=== PATIENT | female | born 1985 | race Caucasian/White ===

== ENCOUNTER 2016-10-17 15:12 | Emergency (ER) | payer MEDICARE ==
[~2016-10-17] VITALS: Ht 165.1 cm; Wt 38.6 kg
[~2016-10-17 15:12] MED LIST: ADAL40PE2 SQ; DICY10CA56 PO; DIL4T PO; LORA1TAB PO; PRE10 PO; PRE20 PO; PROM25SU46 PO; TRAM50TA2 PO
[2016-10-17 15:27] VITALS: BP 115/86; PULSE 122; RESP 16; O2SAT 98
[2016-10-17 17:06] LABS: EOSINOPHILS % (AUTO) 0.1 % (0-5)
[2016-10-17 17:08] LABS: BASOPHILS % (AUTO) 0.4 % (0-3); MONOCYTES % (AUTO) 7.6 % (4-12); Mean Corpuscular Hemoglobin 24.8 pg (27.0-35.0); Platelet Count 270 bil/L (150-400)
[2016-10-17 17:25] LABS: Magnesium 1.9 mg/dL (1.6-2.6)
[2016-10-17] MEDS ORDERED: 0.9% Sodium Chloride 1,000 ML IV ONE ×2 (18:45→21:35)
[2016-10-17] MEDS ORDERED: Ondansetron 2 mg/mL 2 mL Inj IVPUSH PRN (19:00)
[2016-10-17] MEDS: HYDROmorphone 1 mg/mL Inj IVPUSH PRN ×3 (19:15→22:59)
[2016-10-17] MEDS ORDERED: MethylprednisoLONE Sodium Succinate 40 mg/mL Inj IVPUSH ONE (20:20)
[2016-10-17 21:32] VITALS: BP 106/72; PULSE 109; RESP 16; O2SAT 100
[2016-10-17 22:47] VITALS: BP 105/65; PULSE 105; RESP 16; O2SAT 99
--- NOTE | 2016-10-18 00:01 | ED.REPORT ---
HPI-Abd Pain F Under 40 Date of Service Oct 17, 2016 ED Provider: Kirby Acosta MD History of Present Illness: The patient is a 31 year old female with history of Crohn's disease s/p permanent ileostomy, who presents to the emergency department after a recent stay at this hospital, for nearly the same symptoms of nausea, vomiting, lightheadedness, racing heart, abdominal pain. Her stool color and consistancy has not changed. At most she has weighed 130 lbs, and she is currently at around 80 lbs. She denies hematemesis, bloody stools, fever, chills, syncope, dysuria or cough. She was on Remicade for 6 months a few years ago but stopped due to an intestinal infection. 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 She is visiting her mother in [place] has established care with Dr. Valdez. She has been on steroids intermittently over the last year. She takes Tramadol and dilaudid PO for some pain relief. She does not smoke tobacco, drink alcohol, or use any illicit drugs. Nursing Notes Stated Complaint: DEHYDRATION/CROHNS Chief Complaint: Female Abdominal Pain Nursing Notes Reviewed: Yes Allergies: Coded Allergies: No Known Allergies (Unverified , 09/24/16) Scheduled Adalimumab (Humira Crohn's) 40 Mg/0.8 Ml Pen.ij.kit 40 MG SQ ONCE Dicyclomine (Bentyl) 10 Mg Capsule 10 MG PO QID Prednisone (PredniSONE) 20 Mg Tablet 20 MG PO DAILY Prednisone (PredniSONE) 10 Mg Tablet 40 MG PO DAILY Prednisone (PredniSONE Concentrate) 5 Mg/1 Ml Oral.conc 8 ML PO DAILY Scheduled PRN Hydromorphone (Dilaudid) 4 Mg Tablet 4 MG PO Q4H PRN PRN Pain Lorazepam (Lorazepam) 1 Mg Tablet 1 MG PO DAILY PRN PRN For Anxiety Lorazepam (Lorazepam) 1 Mg Tablet 1 MG PO HS PRN PRN For Insomnia Promethazine HCl (Phenergan) 25 Mg Supp.rect 12.5 MG PO QID PRN PRN For Nausea Tramadol (Tramadol) 50 Mg Tablet 50 MG PO DAILY PRN PRN For Pain General Time Seen by MD: 19:00 Chief Complaint Abdominal pain, Nausea, Vomiting mild Past Medical History Past Medical History Crohn's Disease Past Surgical History Ileostomy Family History Noncontributory Smoking History Never Smoker Social History Lives in [place], she is here visiting her mother Alcohol Use: Denies alcohol use Drug Use: Denies drug use Other Social History: Good social support, , Lives with children, Visiting locally Ambulatory Status Independent Review of Systems Review of Systems Note: A comprehensive review of systems was conducted with the patient and found to be negative except as above in the History of Present Illness. Complete sys rev & neg: except as marked. Physical Exam Physical Exam Notes: General: Young cachectic lady lying in bed in no acute distress, very thin and protein malnourished, appropriately interactive and very pleasant. HEENT: Normocephalic, atraumatic. External ears without defect. Pupils equal, round, and reactive to light and accommodation. Anicteric sclerae, moist conjunctivae, and no lid lag. Oropharynx free of erythema and cobble stoning with moist mucosa. Neck: Supple with full range of motion. No jugular venous distension. No bruits. No lymphadenopathy or thyromegaly. Cardiovascular: Tachycardic rate with regular rhythm with no murmurs, rubs, or gallops appreciated Pulmonary: Clear to auscultation bilaterally with no crackles, wheezes, or rhonchi. Normal respiratory effort with no use of accessory muscles. Abdomen: Bowel tones present. Soft, nontender, nondistended. No hepatosplenomegaly or masses appreciated. Extremities: No clubbing, cyanosis, edema, or lymphadenopathy appreciated. Skin: Normal temperature, turgor, and texture; no rash, ulcers, or subcutaneous nodules appreciated. Neurological: Cranial nerves grossly intact. Normal muscle strength, tone, and bulk. Reflexes, coordination, and sensory function within normal limits. No known gait impairment. Psychiatric: Normal mood and affect. Alert and oriented to person, place, and time. Initial Vital Signs Vital Signs (First) Date Time Temp Pulse Resp B/P Pulse Ox O2 Delivery O2 Flow Rate FiO2 10/17/16 15:27 36.5 122 16 115/86 98 Room Air Interpretation & Diagnostics Lab Results Interpretation Result Diagram: 10/17/16 1652 10/17/160 Test 10/17/16 16:52 10/17/16 21:20 10/17/16 21:42 White Blood Count 9.6th/mm3 (3.8-10.1) Red Blood Count 4.71mil/mm3 (3.90-5.20) Hemoglobin 11.7g/dL (12.0-15.6) Hematocrit 37.2% (35.0-46.0) Mean Corpuscular Volume 79.0fL (81-100) Mean Corpuscular Hemoglobin 24.8pg (27.0-35.0) Mean Corpuscular Hemoglobin Concent 31.5% (32.0-37.0) Red Cell Distribution Width 20.0% (12.3-15.4) Platelet Count 270bil/L (150-400) Neutrophils (%) (Auto) 76.0% (40-74) Lymphocytes (%) (Auto) 15.2% (14-46) Monocytes (%) (Auto) 7.6% (4-12) Eosinophils (%) (Auto) 0.1% (0-5) Basophils (%) (Auto) 0.4% (0-3) Hematology Comments Wbc Magnesium Level 1.9mg/dL (1.6-2.6) Total Bilirubin 0.3mg/dL (0.0-1.2) Aspartate Amino Transf (AST/SGOT) 13U/L (0-50) Alanine Aminotransferase (ALT/SGPT) 12U/L (0-32) Alkaline Phosphatase 108U/L (25-150) Total Protein 4.7g/dL (6.4-8.4) Albumin 2.0g/dL (3.4-5.0) Lipase 5U/L (13-60) Hold Chavis Top Tube Received (Received) Sodium Level 129mEq/L (134-144) Potassium Level 4.2mEq/L (3.5-5.2) Chloride Level 95mEq/L (97-108) Carbon Dioxide Level 22mmol/L (18-29) Blood Urea Nitrogen 18mg/dL (6-20) Creatinine 0.60mg/dL (0.57-1.00) Estimat Glomerular Filtration Rate 167mL/min (>59) Glucose Level 61mg/dL (60-99) Calcium Level 6.7mg/dL (8.5-10.1) Hold Urine Received (Received) Re-Eval/Medical Decision Med Decision/Clinical Course Med Decision/Clinical Course: Patient has a complicated history involving Crohns disease, nausea and vomiting, and severe diarrhea. Her current episode of vomiting, hyponatremia and dehydration seems to be typical for her. We administered 2 L NS with improvment of tachycardia and sodium level. She is no longer nauseous and her abdominal pain is well controlled. She remains stable safe for home with plan for close follow up by her primary care physician. Discharge & Departure Shift Change Sign-Out Discussed Complaint(s): Yes Laboratory Evaluation: Lab evaluation discussed Primary Impression: Crohns disease Gastrointestinal tract location: large intestine Digestive disease complication type: without complications Qualified Code: K50.10 - Crohn's disease of large intestine without complications Additional Impressions: Hyponatremia Tachycardia Dehydration Nausea & vomiting Vomiting Intractability: non-intractable Disposition: Home Discharge Condition All VS Reviewed: Yes Condition: Stable Additional Instructions: During you visit to [facility] we obtained blood work for infectious markers, hemoglobin levels, and electrolytes. All your lab values aside from your sodium, before discharge were within normal limits. Your sodium levels are near normal at 129 before the second liter of NS. I recommend drinking more fluids that contain electrolytes like Pedialyte or Gatorade. Your vital signs were stable and safe for discharge home. We will send you home with - Liquid prednisone 40mg- Do not hesitate to call emergency services or your primary care physician if you experience any of the following. - High unrelenting fevers. - Uncontrolled vomiting. - Severe hypertension or hypotension. - Syncope or loss of consciousness. - Chest pain or severe shortness of breath. Follow up closely with your primary care physician in 1-2 weeks time following your emergency department visit for medication checks and general well-being. Referrals: LASHA PRATHER DO (PCP) Attending Statment Seen and examined with Dr Tobin on 09/17. agree with above BENSON TOBIN DO Oct 17, 2016 19:56 Kirby Acosta MD Oct 18, 2016 02:17
[2016-10-18] MEDS ORDERED: PRED5ORA PO (00:06)
[2016-10-18 00:30] VITALS: BP 108/68; PULSE 88; RESP 16; O2SAT 99
== END 2016-10-18 00:30 | disposition home or self-care (01) ==
LOC: SED 15:12
DX: K50.10 Crohn's disease of large intestine without complications (principal); E87.1 Hypo-osmolality and hyponatremia; E86.0 Dehydration; R00.0 Tachycardia, unspecified; Z93.2 Ileostomy status
CPT/HCPCS: 36415; 80048; 80053; 81025; 83690; 83735; 85025; 96361; 96374; 96375; 96376; 99285; J1170; J2405; J2920; J7030

== ENCOUNTER 2016-10-21 14:46 | Inpatient (IN) | payer MEDICARE ==
[~2016-10-21] VITALS: Ht 165.1 cm; Wt 45.5 kg
[~2016-10-21 14:46] MED LIST changes: +PRED5ORA PO
[2016-10-21 14:55] VITALS: BP 107/81; PULSE 135; RESP 20; O2SAT 99
[2016-10-21 15:30] LABS: BASOPHILS % (AUTO) 0.3 % (0-3); EOSINOPHILS % (AUTO) 0 % (0-5); MONOCYTES % (AUTO) 7.7 % (4-12); Mean Corpuscular Hemoglobin 25.3 pg (27.0-35.0); Mean Corpuscular Volume 79.2 fL (81-100); NEUTROPHILS % (AUTO) 76.6 % (40-74); Platelet Count 174 bil/L (150-400)
[2016-10-21 16:05] LABS: Magnesium 1.9 mg/dL (1.6-2.6)
[2016-10-21] MEDS ORDERED: 0.9% Sodium Chloride 1,000 ML IV ONE (17:27)
[2016-10-21] MEDS ORDERED: Ondansetron 2 mg/mL 2 mL Inj IVPUSH PRN ×2 (17:30→18:25)
[2016-10-21] MEDS ORDERED: Pantoprazole 4 mg/mL 10 mL Inj IVPUSH ONE ×2 (17:30→20:30)
--- NOTE | 2016-10-21 18:23 | ED.REPORT ---
HPI-Abd Pain F Under 40 Date of Service Oct 21, 2016 ED Provider: Vlad Bauman DO A 31 year old female with a history of anxiety and Crohn's disease s/p total proctocolectomy with end ileostomy presents to the ED with a Crohn's flare up onset one week ago. Her symptoms today include watery diarrhea in her ileostomy bag, mild hematochezia, and abdominal pain. She denies fever. The patient was hospitalized for 10 days on 09/24/16 with a similar flare-up and was seen in the ED on 10/17/16 for dehydration. Nursing Notes Stated Complaint: POSSIBLY DEHYDRATED/CROHNS FLARE Chief Complaint: Female Abdominal Pain Nursing Notes Reviewed: Yes Allergies: Coded Allergies: No Known Allergies (Unverified , 09/24/16) Scheduled Adalimumab (Humira Crohn's) 40 Mg/0.8 Ml Pen.ij.kit 40 MG SQ ONCE Dicyclomine (Bentyl) 10 Mg Capsule 10 MG PO QID Prednisone (PredniSONE) 20 Mg Tablet 20 MG PO DAILY Prednisone (PredniSONE) 10 Mg Tablet 40 MG PO DAILY Prednisone (PredniSONE Concentrate) 5 Mg/1 Ml Oral.conc 8 ML PO DAILY Scheduled PRN Hydromorphone (Dilaudid) 4 Mg Tablet 4 MG PO Q4H PRN PRN Pain Lorazepam (Lorazepam) 1 Mg Tablet 1 MG PO DAILY PRN PRN For Anxiety Lorazepam (Lorazepam) 1 Mg Tablet 1 MG PO HS PRN PRN For Insomnia Promethazine HCl (Phenergan) 25 Mg Supp.rect 12.5 MG PO QID PRN PRN For Nausea Tramadol (Tramadol) 50 Mg Tablet 50 MG PO DAILY PRN PRN For Pain General Time Seen by MD: 18:06 Chief Complaint Other (Crohn's flare up) Hx Obtained From: Patient Arrived By: Walk-in Sudden in Onset?: No Onset Occurred: 1 week ago Symptom Duration: Since onset Location: : Diffuse Quality: Painful Severity: Current: Moderate Severity: Maximum: Moderate Associated with: Reports: Diarrhea, Hematochezia, Denies: Fever Sexual History / Control: Denies Pt is sexually active Pertinent Negative: Relieved by nothing Context Related History: Reports: Abdominal surgery Recent Healthcare: Recent doctor visit, Recent hospitalization Similar Sx Previous: Yes Past Medical History Past Medical History Crohn's Disease Anxiety Heart murmur Past Surgical History Total proctocolectomy with end ileostomy Family History Noncontributory Smoking History Never Smoker Social History Lives in [place], she is here visiting her mother Alcohol Use: Denies alcohol use Drug Use: Denies drug use Other Social History: Good social support, , Lives with children, Visiting locally Ambulatory Status Independent Review of Systems Constitutional: Denies: Fever Respiratory: Denies: Non-productive cough, Shortness of breath GI: Reports: Abdominal pain, Diarrhea (Watery), Hematochezia (Mild), Denies: Vomiting Complete sys rev & neg: except as marked. Physical Exam Physical Exam Notes: Initial Vital Signs Vital Signs (First) Date Time Temp Pulse Resp B/P Pulse Ox O2 Delivery O2 Flow Rate FiO2 10/21/16 14:55 36.2 135 20 107/81 99 Room Air Initial VS: Reviewed Neck: Supple, Full range of motion Skin: Warm, Dry, No cyanosis Neurologic: Alert, Oriented, Nonfocal Psychiatric: Mood/affect normal, Behavior normal, Normal thought content General/Constitutional: Awake, Alert Appearance / Presentation: Positive: Cachectic Respiratory / Chest: Breath sounds NL, Breath sounds = bilat, No respiratory distress Cardiovascular: Regular rhythm, Heart sounds NL Heart Rate / Rhythm: Positive: Tachycardia Lower Ext Edema: Positive: Pitting (Trace, bilaterally) Abdomen: Soft, Non-tender Head / Eyes: Atraumatic, Normocephalic Face puffy secondary to chronic steroids Interpretation & Diagnostics Lab Results Interpretation Result Diagram: 10/21/16 1520 10/21/16 1520 Test 10/21/16 15:20 10/21/16 17:22 10/21/16 18:51 10/21/16 19:22 White Blood Count 20.9th/mm3 (3.8-10.1) Red Blood Count 4.67mil/mm3 (3.90-5.20) Hemoglobin 11.8g/dL (12.0-15.6) Hematocrit 37.0% (35.0-46.0) Mean Corpuscular Volume 79.2fL (81-100) Mean Corpuscular Hemoglobin 25.3pg (27.0-35.0) Mean Corpuscular Hemoglobin Concent 31.9% (32.0-37.0) Red Cell Distribution Width 20.9% (12.3-15.4) Platelet Count 174bil/L (150-400) Neutrophils (%) (Auto) 76.6% (40-74) Lymphocytes (%) (Auto) 15.0% (14-46) Monocytes (%) (Auto) 7.7% (4-12) Eosinophils (%) (Auto) 0% (0-5) Basophils (%) (Auto) 0.3% (0-3) Sodium Level 128mEq/L (134-144) Potassium Level 4.8mEq/L (3.5-5.2) Chloride Level 92mEq/L (97-108) Carbon Dioxide Level 22mmol/L (18-29) Blood Urea Nitrogen 22mg/dL (6-20) Creatinine 0.70mg/dL (0.57-1.00) Estimat Glomerular Filtration Rate 140mL/min (>59) Glucose Level 87mg/dL (60-99) Calcium Level 7.4mg/dL (8.5-10.1) Magnesium Level 1.9mg/dL (1.6-2.6) Total Bilirubin 0.2mg/dL (0.0-1.2) Aspartate Amino Transf (AST/SGOT) 24U/L (0-50) Alanine Aminotransferase (ALT/SGPT) 18U/L (0-32) Alkaline Phosphatase 117U/L (25-150) Total Protein 5.0g/dL (6.4-8.4) Albumin 2.1g/dL (3.4-5.0) Lipase 10U/L (13-60) Hold Urine Received (Received) Urine Color Yellow (YELLOW) Urine Appearance Clear (CLEAR,HAZY) Urine pH 6.5 (5.0-8.0) Urine Specific [place] 1.010 (1.003-1.035) Urine Protein Negativemg/dL (NEG,TRACE) Urine Glucose (UA) Negativemg/dL (NEGATIVE) Urine Ketones Negativemg/dL (NEGATIVE) Urine Occult Blood Negative (NEGATIVE) Urine Nitrite Negative (NEGATIVE) Urine Bilirubin Negative (NEGATIVE) Urine Urobilinogen Normalmg/dL (NORMAL) Urine Leukocyte Esterase Small (NEGATIVE) Urine RBC 0-2/hpf (0-2) Urine WBC 0-5/hpf (0-5) Urine Epithelial Cells None/hpf (NONE-MOD) Urine Crystals None seen (NONE SEEN) Urine Bacteria None/hpf (NONE-FEW) Urine Hyaline Casts None/lpf (NONE) Urine Granular Casts None seen (NONE SEEN) Urine Waxy Casts None seen (NONE SEEN) Urine Red Blood Cell Casts None seen (NONE SEEN) Urine White Blood Cell Casts None seen (NONE SEEN) Urine Mucus None seen (None Seen) Urine Trichomonas None seen (NONE SEEN) Urine Yeast None (NONE SEEN) Urinalysis Comment Reggie carbonate lisa Urine Culture Reflexed Indicated Lactic Acid Level 2.6mmol/L (0.4-2.0) X-Ray Chest Interpretation Chest Xray Interpretation: IMPRESSION: No acute process. Dictated by: Calvin Bonds M.D. on 10/21/2016 at 19:32 View: Portable, 1 view Interpretation / Wet Read by: Interpret - Radiologist X-Ray Abdominal Interpretation ONE VIEW IMPRESSION: No acute process. Dictated by: Calvin Bonds M.D. on 10/21/2016 at 20:17 Interpretation / Wet Read by: Interpret - Radiologist Re-Eval/Medical Decision Med Decision/Clinical Course 31-year-old female with severe Crohn's. She presents with increasing watery stools and abdominal pain. She is found to be in moderate distress. She did not have clinical peritonitis but showed pretty significant tenderness. No focal signs of obstruction. White blood cell count was 20,000 which is a jump from her last visit about a week ago. Consulted with gastroenterology. Plan will admit her to the hospital. Evaluate for signs and symptoms of sepsis. Chest x-ray is normal. UA was negative. No signs of skin infection. Stool will be sent down. If stool studies are negative begin hydrocortisone therapy. Otherwise full resuscitation and pain control. Source of Hx: Old records Re-Evaluation/Progress : Time of Eval: 18:35 Patient Status: Condition improved Re-Evaluation/Progress Note: Discussed with patient diagnosis and plan for admit. Patient agrees with plan for care and all questions were addressed. Consultation #1: Referral / Consult Name: Kirby Valdez MD Call Returned at: 19:07 Screedman/Laborer: Agrees with eval, Agrees with plan Note: GI: If there is no septic source and stool sample is negative, start patient on hydrocortisone and Dr. Valdez will see patient tomorrow. Consultation #2: Referral / Consult Name: Malachi Wells MD Consulted With: Hospitalist Call Returned at: 19:12 Screedman/Laborer: Agrees with eval, Agrees with plan Counseled Regarding: Diagnosis, Need for follow-up, When/why to return to ED Discharge & Departure Primary Impression: Crohns disease Gastrointestinal tract location: small intestine Digestive disease complication type: unspecified complication Qualified Code: K50.019 - Crohn' s disease of small intestine with unspecified complications Disposition: ADMITTED TO HOSPITAL Discharge Condition All VS Reviewed: Yes Condition: Stable Referrals: LASHA PRATHER DO (PCP) Taiwo Attestation Portions of this note were transcribed by Laura Hills. I, Dr. Bauman, personally performed the history, physical exam, and medical decision-making; I reviewed and confirmed the accuracy of the information in the transcribed note. Signed by: Taiwo Tesfaye, 10/21/2016, 20:52 copies to: LASHA PRATHER Todd P DO Oct 21, 2016 18:23 LAURA HILLS Oct 21, 2016 18:35
[2016-10-21] MEDS: HYDROmorphone 0.5 mg/0.5 mL iSecure Syringe IVPUSH PRN ×3 (19:13→21:01)
[2016-10-21 19:33] VITALS: BP 103/71; PULSE 112; RESP 16; O2SAT 97
--- NOTE | 2016-10-21 19:33 | DRSVH ---
PROCEDURE: X-RAY CHEST ONE VIEW, PORTABLE ([id number]) INDICATIONS: sepsis TECHNIQUE: One view of the chest was acquired. COMPARISON: [facility], CR, XR CHEST 2VW, 09/25/2016, 9:09. FINDINGS: Surgical changes and devices: None. Lungs and pleura: No pleural effusions or pneumothorax. Lungs are clear. Mediastinum: Mediastinal contours appear normal. Heart size is normal. Bones and chest wall: No suspicious bony lesions. Overlying soft tissues appear unremarkable. IMPRESSION: No acute process. Dictated by: Calvin Bonds M.D. on 10/21/2016 at 19:32 Approved by: Calvin Bonds M.D. on 10/21/2016 at 19:32
--- NOTE | 2016-10-21 19:43 | PCM.HPMED ---
Subjective Date of Service Oct 21, 2016 Primary Provider: Admitting Physician: Primary Care Physician: Karissa Vicente DO Attending Physician: Chief Complaint: new leukocytosis ongoing dehydration from diarrhea HISTORY was OBTAINED FROM PATIENT / Golden Reviews NOTES History of present illness 31-year-old female, with ileostomy due to Crohn's disease, admitted in 09/2016 when [place] be treated for flare of Crohn's disease (with TPN/Humira/sodium and potassium repletion/ prednisone continued, . no recurrent Sharon-ostomy Fistula, associated Acute blood loss/iron deficiency anemia, ileostomy stricture dilated) presented last week in the ER, treated with IV fluids/discharged, returns today for ongoing dehydration and new leukocytosis with persistent ileostomy high output, abdominal pain. Ongoing acid reflux with prednisone 40. Humira every 15 days. 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 section Low grade TETO status post colposcopy Allergies Coded Allergies: No Known Allergies (Unverified , 09/24/16) PMH Social History Hx Alcohol Use: No Hx Substance Use: No Smoking Status: Never Smoker Exam Vital Signs Vital Sign - Last Date Time Temp Pulse Resp B/P Pulse Ox O2 Delivery O2 Flow Rate FiO2 10/21/16 14:55 36.2 135 20 107/81 99 Room Air Lab and Diagnostics Labs Exam on admission on room air cheeks are montano than 09/2016 NAD A and O x 3 mood affect WNL NC/AT no icterus no injected eyes EOMI PERRL /no pharyngeal lesions/ no oral lesions / hearing intact Supple neck CTAB equal chest rise / no accessory muscle use / speaks in full sentences / no rrw RRR S1 S2 / no mrg / 2+ radial pulses Soft nt nd + BS no hepatosplenomegaly trace edema no cyanosis no ecchymosis of lower extremities No rash / no jaundice PERALTA RLQ ileostomy bag in place, full of fluid Stool cultures/PCR pending Chest x-ray negative KUB no bowel loops dilated Result Diagram: 10/21/16 1520 10/21/16 1520 Assessment & Plan Active issues and reason for admission 31-year-old female with Crohn's disease and history of ileitis, admitted for dehydration due to high ileostomy output and new leukocytosis. -- Cipro Flagyl pending stool cultures/PCR -- NS 125 per hour, regular diet nothing by mouth at midnight -- Dr. Jon plans EGD and ileoscopy if cultures are negative -- Continue prednisone 40 -- Dilaudid 1-3 when necessary abdominal pain Chronic issues known prior to admission, present on admission Anxiety, monitor GERD due to prednisone Anemia, blood loss/iron deficiency -- PPI, monitor hemoglobin DVT prophylaxis ambulate Code full Assessment and plan were discussed with patient . Malachi Wells MD Oct 21, 2016 19:43 10/21/16 1520 Malachi Wells MD Oct 21, 2016 19:43
[2016-10-21 19:44] LABS: APPEARANCE,URINE CLEAR (CLEAR,HAZY); COLOR,URINE YELLOW (YELLOW); OCCULT BLOOD,URINE NEGATIVE (NEGATIVE); PH,URINE 6.5 (5.0-8.0); UROBILINOGEN,URINE NORMAL (NORMAL)
--- NOTE | 2016-10-21 20:19 | DRSVH ---
PROCEDURE: X-RAY ABDOMEN, ONE VIEW ([id number]) INDICATIONS: prior small bowel strictures/crohns TECHNIQUE: One view of the abdomen acquired. COMPARISON: [facility], CR, XR SMALL BOWEL BARIUM, 10/01/2016, 8:38. FINDINGS: Surgical changes and devices: Right lower quadrant ostomy is present. Bowel: Bowel gas pattern is normal. Soft tissues: No suspicious abdominal calcifications. Visualized solid organ contours appear normal in size. Bones: No suspicious bony lesions. IMPRESSION: No acute process. Dictated by: Calvin Bonds M.D. on 10/21/2016 at 20:17 Approved by: Calvin Bonds M.D. on 10/21/2016 at 20:17
[2016-10-21] MEDS ORDERED: metroNIDAZOLE 250 mg Tablet PO SCH (20:30)
[2016-10-21] MEDS ORDERED: Alum-Mag Hydrox-Simeth 30 mL Suspension PO PRN (20:50)
[2016-10-21] MEDS: 0.9% Sodium Chloride 1,000 ML IV SCH (21:01)
[2016-10-21 22:15] VITALS: BP 98/65; PULSE 110; RESP 16; O2SAT 99
[2016-10-21] MEDS: HYDROmorphone 1 mg/mL Inj IVPUSH PRN (23:11)
[2016-10-21] MEDS ORDERED: OXYC15TA45 PO (23:31)
[2016-10-21] MEDS ORDERED: PROM12.510 PO (23:31)
[2016-10-22] MEDS ORDERED: 0.9% Sodium Chloride 500 ML IV ONE (00:10)
[2016-10-22 00:33] VITALS: BP 102/67; PULSE 110; RESP 16; O2SAT 99
[2016-10-22] MEDS: HYDROmorphone 1 mg/mL Inj IVPUSH PRN ×5 (02:06→15:07)
[2016-10-22] MEDS: 0.9% Sodium Chloride 1,000 ML IV SCH ×3 (03:14→18:38)
[2016-10-22] MEDS: Ketorolac 15 mg/mL Inj IVPUSH PRN ×2 (03:38→11:10)
[2016-10-22 04:33] VITALS: BP 109/66; PULSE 93; RESP 16; O2SAT 100
--- NOTE | 2016-10-22 06:28 | NUR ---
Admit Pt arrived at 1999 via stretcher. Pt easily able to ambulate to bed w/o any assistance. Pt is otherwise normal healthy fully functioning friendly young woman. Pt able to care for self independently w/o any difficulty whatsoever.
[2016-10-22] MEDS ORDERED: predniSONE 20 mg Tablet PO SCH (08:30)
--- NOTE | 2016-10-22 08:54 | NUR ---
EGD Endo called at 0740. To discuss plan for EGD with Dr. Jon and notify RN. Per conrad, pt can have clears until 10am.
--- NOTE | 2016-10-22 09:14 | NUR ---
Case Management: IMM given and explained to pt at bedside at 9:55 am. No questions. FABRICE Stafford RN
[2016-10-22 09:43] LABS: Mean Corpuscular Volume 79.2 fL (81-100)
[2016-10-22 10:05] VITALS: BP 103/60; PULSE 89; RESP 12; O2SAT 100
--- NOTE | 2016-10-22 10:15 | NUR ---
Lab/eusebia DANG notified at 1015 that pt's Ca is 6.4, Albumin 1.1 and pt's stool is positive for norovirus. To be placed in enteric/contact precautions.
--- NOTE | 2016-10-22 10:30 | NUR ---
Rounds 1040 Hospitalist aware of Ca 6.4. No new orders. Aware of facial, left arm and lower extremity swelling. No new orders. Pt stable.
--- NOTE | 2016-10-22 12:19 | NUR ---
Social Work: Initial Assessment Data: Pt is a 31 y/o female admitted for crohns. Pt's PCP is Dr Vicente, pt's insurance is Medicare. Pt readmit score is 2. EMR reviewed, EAR SPECIALIST met with pt at bedside, role explained. Pt states that she lives with her mother on [address] where there are a few steps to enter. Pt uses no DME and estrada no SNF history. Pt has history with HH but is unsure of the company. Pt states that she does not have a DPOA and declined information. Pt reports not LTC or VA benefits and is not a caregiver for another. Pt states her mom can give her a ride home at d/c. EAR SPECIALIST will continue to follow for possible needs at d/c. Assessment: Pt who is independent at baseline. Plan: Pt will d/c home via POV when medically stable. EAR SPECIALIST will continue to follow for possible d/c needs. ASHLYN Sánchez Addendum: 10/22/16 at 1224 by STEVE CALDERON SS Amended: Links added.
--- NOTE | 2016-10-22 12:23 | NUR ---
GI Per Dr. Jon at 1210, pt may start a soft diet as ileostomy dilation will not happen today. aware of positive GI norovirus. Notified MD that pt reports watery ileostomy output, is having moderate 6-7/10 abdominal pain but no N/V. Afebrile. VSS. Dr. Jon to see pt this afternoon. Addendum: 10/22/16 at 1534 by EMORY DENISE RN Continuing to encourage po intake of food/fluids. aware that pt has been seen by nutrition.
[2016-10-22 12:47] VITALS: BP 121/85; PULSE 98; RESP 16; O2SAT 98
--- NOTE | 2016-10-22 13:45 | PCM.CHPMED ---
Subjective Date of Service: Oct 22, 2016 Provider requesting consult: Malachi Wells MD Primary Physician: Admitting Physician: Malachi Wells MD Primary Care Physician: Karissa Vicente DO Attending Physician: Malachi Wells MD Chief Complaint: Chief Complaint: Diarrhea, abdominal pain History of Present Illness: Patient is a 31 year old female with a history of anxiety and Crohn's disease s/ p total proctocolectomy with end ileostomy who presents to the ED with a one week of watery diarrhea in her ileostomy bag, mild hematochezia, and abdominal pain. She reports she had nausea and vomiting about a week ago but this has resolved since then. She denies fevers, chills, dizziness, chest pain, or shortness of breath. She has no other complaints. The patient was hospitalized for 10 days on 09/24/16 with a similar flare-up and was seen in the ED on for dehydration. She states this is similar to her similar Crohn's flares. She reports her nephew and niece had vomiting and diarrhea a little over a week ago. She denies NSAID or Tylenol use. She has no family history of Crohn's or UC, but her mother has celiac disease and her grandfather was diagnosed with colon cancer at age 62. She had an EGD with biopsy and ileoscopy with biopsy and balloon dilatation in Sep 2016, which showed minimal gastropathy, mild reactive esophagitis, terminal ileitis, and severe inflammatory stomal stricturing. On admission, WBC was 20.9, now down to 9.6. Hb was 11.8, decreased to 8.6 today , platelets 174, down to 87. LFTs and bilirubin were normal, lipase normal. UA was negative. Stool PCR positive for norovirus. Review of Systems: Comprehensive review of systems conducted and was negative except for the pertinent positives listed above. 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 section Low grade TETO status post colposcopy Allergies: Coded Allergies: No Known Allergies (Unverified , 10/21/16) Family History Family History She has no family history of Crohn's or UC Mother has celiac disease Grandfather was diagnosed with colon cancer at age 62 Social History Hx Alcohol Use: NoHx Substance Use: No Smoking Status: Never Smoker Exam Vital Signs Vital Sign - Last Date Time Temp Pulse Resp B/P Pulse Ox O2 Delivery O2 Flow Rate FiO2 10/22/16 10:05 36.9 89 12 103/60 100 Room Air Intake and Output 10/21/16 10/21/16 10/22/16 Cumulative From/Thru 15:00 23:00 07:00 10/21/16 14:55 - 10/22/16 06:25 Intake Total 1000 ml 1993 ml 2993 ml Balance 1000 ml 1993 ml 2993 ml Intake Oral 600 ml 600 ml IV Total 1000 ml 1393 ml 2393 ml # Voids 1 1 # Bowel Movements 1 1 Additional Information: General: Alert, Oriented X3, Cooperative, No Acute Distress Head: Normocephalic, atraumatic. External ears normal. Cheeks swollen bilaterally, R>L. Eyes: PERRLA, EOMI. Anicteric sclerae. Mouth: Mouth Normal, Mucous Membranes Moist/[place] Neck: Neck supple with full range of motion. Chest & Lungs: Clear to auscultation bilaterally with no crackles, wheezes, or rhonchi. Cardiovascular: Regular Rate/Rhythm, Normal S1, Normal S2, No Murmurs/Rubs/ Gallops Abdomen: Mild diffuse tenderness, Ileostomy bag in place, Non-distended, No masses, Normoactive bowel tones, Soft Musculoskeletal: Normal Range of Motion Extremities: Mild bilateral lower extremity edema Neurological: Grossly Neurologically Intact, Normal Speech, Strength Normal 4/ 4 ext, Normal Gait Lab and Diagnostics Result Diagram: 10/22/1691510/22/1616 Assessment & Plan Assessment Patient is a 31 year old female with a history of anxiety and Crohn's disease s/ p total proctocolectomy with end ileostomy who presents to the ED with a one week of watery diarrhea in her ileostomy bag, mild hematochezia, and abdominal pain. Tested positive for norovirus. Acute norovirus gastroenteritis - Pt reports 1 week of nausea/vomiting/diarrhea, and abdominal pain after contact with 2 children with similar symptoms. Stool PCR was positive for norovirus. Will likely need supportive treatment. - Supportive treatment - IV fluids, antiemetics, pain control Microcytic anemia, acute. - Pt presented with Hb 11.8, which dropped to 8.6 overnight. This likely represents dilution, as she did receive fluids and was significantly dehydrated on admit. Furthermore, she appears to be chronically anemic with her baseline around 9. MCV was 79.2, likely iron deficiency anemia secondary to GI blood loss. - Trend H&H regularly - Transfuse if necessary. - Consider iron supplements - Continue to monitor for signs of overt bleeding Possible acute GI bleed - Pt reports hematochezia over the past week. No edy red blood or dark stools in ostomy. - Continue to monitor for signs of overt bleeding History of Crohn's Disease - Currently on Humira and Prednisone. She is s/p total proctocolectomy with end ileostomy and has a history of stomal strictures - Continue Humira and Prednisone. Problems: Attending Statement Patient was seen and examined. I agree with the assessment and plan as described by Dr Machado. Primary reason for acute admission appears to be the norovirus infection. There is no suggestion of obstruction at this point. Will hold off on reevaluation of stoma at this time to allow continued supportive care. I suspect significant hemoconcentration at presentation judging by the fall in WBC and Hb since admission. I recommend oral nutrition. Continued IV hydration and electrolyte repletion. Reduce prednisone to 30mg daily. Stop antibiotics. Convert from IV to as needed oral pain medication. Will continue to follow. Not due for next Humira until the . Shmuel Machado Oct 22, 2016 11:22 Kirby Valdez MD Oct 23, 2016 06:40
[2016-10-22 15:55] VITALS: BP 106/68; PULSE 99; RESP 16; O2SAT 99
--- NOTE | 2016-10-22 16:04 | NUR ---
NUTRITION CONSULT Assess: 31 yo F w/ Crohn's admitted for dehydration d/t persistently high output from ileostomy and new leukocytosis. Pt w/ recent admission during which she required TPN 09/2016. Pt states that since her previous admission she has not been able to put on any wt and food seems to go right through her. She has been drinking extra fluids to try to stay hydrated. Pt is living with her mother who has been recently making smoothies for pt and states that she tolerates them well. Pt tells me that her wt has been 85 lbs for awhile and she has not been able to gain wt. Over the course of 1 yrs pt went from 120 lbs to 85 lbs. PMHx: SBO, Malnutrition, Crohns, Ileostomy, Perirectal fistula, Iron deficiency, Coagulation disorder, Ileal pancolitis, Abdominal protocolectomy, Tympanostomy, Low grade TETO. LABS: Na 130, Cr 0.53, LA 2.6, Ca 6.4, Albumin 1.1, Lipase 10 MEDICATIONS: Prednisone, Zofran DIET: Soft, No PO recoreded DIET Hx/INTAKE PATIENT SERVICES MANAGER: NUTRITION FOCUSED PHYSICAL ASSESSMENT: GI symptoms/stool: BM x1 10/21Braden: 20 Skin integrity: No issues noted Overall Appearance: Thin woman lying in bed - thinning noted in triceps, biceps, and forearms. ANTHROPOMETRICS: Current Wt: 38.6 kg BMI: 14.2 kg/w9Atfrw Wt: 38.6 kg IBW: 56.8 kgRecent wt changes: Wt loss (35 lbs x1 yrs = 29%, significant) ESTIMATED NEEDS: Malnutrition Calories: 7319-6741 kcal/d (35-40 kcal/kg/d) Protein: 45-70 g/d (1.2-1.8 g/kg/d) Fluids: 7892-5367 ml/d (1 ml/kcal/d) NUTRITION DIAGNOSIS: 1) Severe malnutrition related to GI abnormalities as evidenced by BMI of 14.2 kg/m2, loss of LBM, and 29% wt loss x1 yr. INTERVENTION: 1) Recommend consideration of TPN d/t poor nutritional status 2) Will send Ensure TID 3) High calorie/protein recipe book provided MONITOR/EVALUATE: PO intake, Nutrition support, GI, Wt, Nutrition status, POC. Will follow per high nutrition risk guidelines. Addendum: 10/23/16 at [address] Spoke to pt regarding supplement tolerance. Pt would like to try Ensure Clear TID instead of Ensure. Will continue to monitor. Addendum: 10/23/16 at [address] R[address] RD Auxiliary student documentation reviewed. I agree with above documentation. Georgette Rodríguez, RAFAEL, CD
--- NOTE | 2016-10-22 18:17 | NUR ---
Pain/POC Pt seen by Dr. Jon this evening. To dc IV pain meds and switch over to po. Pt encouraged not to over utilize. MD to dc antibiotics. Aware of current electrolytes. To continue to encourage ambulation and PO intake, will not initiate TPN at this time. MD will continue to assess need for ileostomy dilation. No n/v this shift. Labs in am. To taper down po steroids. Pt verbalized understanding of plan.
[2016-10-22] MEDS: Ondansetron 2 mg/mL 2 mL Inj IVPUSH PRN (18:45)
--- NOTE | 2016-10-22 20:11 | PCM.PNMED ---
Subjective Date of Service Oct 22, 2016 Subjective Patient was seen and examined. Patient denies any shortness of breath, chest pain, and reports nausea and watery diarrhea in her ostomy back. Exam Vital Signs Vital Sign - Last Date Time Temp Pulse Resp B/P Pulse Ox O2 Delivery O2 Flow Rate FiO2 10/22/16 15:55 36.8 99 16 106/68 99 Room Air Intake and Output 10/21/16 10/21/16 10/22/16 Cumulative From/Thru 15:00 23:00 07:00 10/21/16 14:55 - 10/22/16 06:25 Intake Total 1000 ml 1993 ml 2993 ml Balance 1000 ml 1993 ml 2993 ml Intake Oral 600 ml 600 ml IV Total 1000 ml 1393 ml 2393 ml # Voids 1 1 # Bowel Movements 1 1 Exam Physical Exam: GEN: Patient was awake, alert, responding appropriately to questions, extremely thin HEENT: PERRLA, EOMI, Neck soft supple, trachea midline, nomocephalic/atraumatic , positive facial swelling most likely secondary to steroid use CV: +S1/S2, RRR, no murmurs auscultated Respiratory: CTAB, no wheezes, rales, rhonchi GI: Hypoactive bowel sounds, soft, compressible, mild TTP, ostomy in place currently outputting watery diarrhea EXT: no c/c/e Neuro: CN II-XII grossly intact Psych: mood and affect were appropriate IVs and Medications Medications Reviewed: Medications were reviewed in detail Medications Current Medications Ondansetron HCl 4 mg Q15M PRN IVPUSH Last administered on 10/21/16 17:58; Admin Dose 4 MG; Start 10/21/16 at 17:30; Stop 10/22/16 at 18:29; Status DC Hydromorphone HCl 0.5 mg Q15MIN PRN IVPUSH Last administered on 10/21/16 21:01 ; Admin Dose 0.5 MG; Start 10/21/16 at 18:25; Stop 10/22/16 at 18:27; Status DC Ondansetron HCl 4 mg 4 mg Q15M PRN IVPUSH; Start 10/21/16 at 18:25; Stop at 18:30; Status DC Sodium Chloride 1,000 ml @ 125 mls/hr Q8H IV Last administered on 10/22/16 18: 38; Admin Dose 125 MLS/HR; Start 10/21/16 at 19:15 Ciprofloxacin 250 mg BID PO Last administered on 10/22/16 07:50; Admin Dose 250 MG; Start 10/21/16 at 20:30; Stop 10/22/16 at 18:27; Status DC Metronidazole HCl 250 mg Q8 PO; Start 10/21/16 at 20:30; Stop 10/21/16 at 20:30 ; Status DC Metronidazole HCl 250 mg Q8H PO Last administered on 10/22/16 12:12; Admin Dose 250 MG; Start 10/21/16 at 20:30; Stop 10/22/16 at 18:27; Status DC Al Hydrox/Mg Hydrox/Simethicone 30 ml Q6H PRN PO; Start 10/21/16 at 20:50 Hydromorphone HCl 1 mg Q3H PRN IVPUSH Last administered on 10/22/16 15:07; Admin Dose 1 MG; Start 10/21/16 at 20:50; Stop 10/22/16 at 18:27; Status DC Prednisone 40 mg DAILY PO Last administered on 10/22/16 07:50; Admin Dose 40 MG ; Start 10/22/16 at 08:30; Stop 10/22/16 at 18:29; Status DC Lorazepam 1 mg HS PRN PO; Start 10/22/16 at 00:15 Ketorolac Tromethamine 15 mg Q6H PRN IVPUSH Last administered on 10/22/16 11: 10; Admin Dose 15 MG; Start 10/22/16 at 03:30; Stop 10/22/16 at 18:27; Status DC Oxycodone HCl 5 TO 10 MG Q6H PRN PO Last administered on 10/22/16 18:39; Admin Dose 10 MG; Start 10/22/16 at 18:30 Prednisone 30 mg DAILY PO; Start 10/23/16 at 08:30 Ondansetron HCl 4 mg Q4H PRN IVPUSH Last administered on 10/22/16 18:45; Admin Dose 4 MG; Start 10/22/16 at 18:35 Lab and Diagnostics Microbiology 10/21/16 Blood Culture, Received Pending 10/21/16 Campylobacter (PCR) - Final, Complete Not Detected 10/21/16 Clostridium difficile Toxin A&B (M) - Final, Complete Not Detected 10/21/16 Plesiomonas shigelloides (PCR) - Final, Complete Not Detected 10/21/16 Salmonella (PCR)(ZUHAIR) - Final, Complete Not Detected 10/21/16 Yersinia enterocolitica (PCR) - Final, Complete Not Detected 10/21/16 Vibrio Species (PCR) - Final, Complete Not Detected 10/21/16 Vibrio Cholerae (PCR) - Final, Complete Not Detected 10/21/16 Enteroaggregative E. coli (PCR) - Final, Complete Not Detected 10/21/16 Enteropathogenic E. coli (PCR) - Final, Complete Not Detected 10/21/16 Enterotoxigenic E. coli (PCR) - Final, Complete Not Detected 10/21/16 E. coli Shiga-like Toxin (PCR) - Final, Complete Not Detected 10/21/16 Escherichia coli 0157 (PCR) - Final, Complete Not Detected 10/21/16 Enteroinvasive E. coli/Shigella PCR - Final, Complete Not Detected 10/21/16 Cryptosporidium (PCR) - Final, Complete Not Detected 10/21/16 Cyclospora cayetanensis (PCR) - Final, Complete Not Detected 10/21/16 Entamoeba histolytica (PCR) - Final, Complete Not Detected 10/21/16 Giardia lamblia (PCR) - Final, Complete Not Detected 10/21/16 Adenovirus Type F 40/41 (PCR) - Final, Complete Not Detected 10/21/16 Astrovirus (PCR) - Final, Complete Not Detected 10/21/16 Norovirus (PCR) - Final, Complete Norovirus Gi Gii 10/21/16 Rotavirus A (PCR) - Final, Complete Not Detected 10/21/16 Sapovirus I/II/IV/V (PCR) - Final, Complete 10/21/16 Urine Culture - Preliminary, Resulted No growth to date Result Diagram: 10/22/1691510/22/16915 Assessment & Plan Patient is a 31-year-old female with a history of Crohn's disease and ileostomy. Dehydration due to high ileostomy output secondary to Crohn's flare -- Continue Cipro and Flagyl -- NS 125 per hour, regular diet nothing by mouth at midnight -- Dr. Wakeland plans EGD and ileoscopy possibly tomorrow -- Cultures positive for neural virus -- Continue prednisone 40 -- Dilaudid 1-3 when necessary abdominal pain Leukocytosis resolved -- White blood cell count 9.6 today Cachexia -- BMI 14 -- Possible addition of TPN for nutritional support -- Nutrition consulted Chronic anemia secondary to iron deficiency -- Hemoglobin and hematocrit 8.6/26.2 -- This is trending down and we will continue to monitor GERD -- Continue PPI Anxiety -- Currently controlled we will continue to monitor DVT prophylaxis ambulate Code full Disposition: GI has been consulted and are following. Patient will most likely have an EGD and ileostomy exploration done by Dr. Jon. Patient is very thin and cachectic as the patient's BMI is 14. We will consider adding TPN to the patient's regiment for nutritional support. Nutrition has been consulted. Pain Evaluation: Adequate Pain Control GI Prophylaxis: Proton Pump Inhibitor Resuscitation Status: CPR: Attempt Resuscitation Trena Lauren DO Oct 22, 2016 20:11
[2016-10-22 20:36] VITALS: BP 107/71; PULSE 82; RESP 18; O2SAT 100
[2016-10-22] MEDS: LORazepam 1 mg Tablet PO PRN (22:14)
[2016-10-23] VITALS (7 sets, daily range): BP systolic 94–116; BP diastolic 59–78; PULSE 83–99; RESP 16–20; O2SAT 96–99
[2016-10-23] MEDS: 0.9% Sodium Chloride 1,000 ML IV SCH ×3 (01:59→19:38)
--- NOTE | 2016-10-23 06:12 | NUR ---
Swelling / Anxiety Pt was becoming increasingly anxious r/t leg swelling and arm and face swelling. Reassured patient regarding prednisone s/e and patient became much more at ease. Educated patient regarding online sources like [employer] and to be cautious. Pt free of anxiety and able to rest.
[2016-10-23 06:35] LABS: BASOPHILS % (AUTO) 0.1 % (0-3); EOSINOPHILS % (AUTO) 0.1 % (0-5); MONOCYTES % (AUTO) 6.7 % (4-12); Mean Corpuscular Hemoglobin 25.7 pg (27.0-35.0); Mean Corpuscular Volume 80.1 fL (81-100); NEUTROPHILS % (AUTO) 67.5 % (40-74); Platelet Count 136 bil/L (150-400)
[2016-10-23 06:51] LABS: Magnesium 1.6 mg/dL (1.6-2.6); Phosphorus 2.7 mg/dL (2.5-4.9)
--- NOTE | 2016-10-23 07:14 | NUR ---
Critical calcium level Hospitalist paged re: calcium level of 6.8.
[2016-10-23] MEDS: predniSONE 20 mg Tablet PO SCH (08:05)
--- NOTE | 2016-10-23 11:31 | PCM.PNMED ---
Subjective Date of Service Oct 23, 2016 Subjective Overnight, patient reports she has been having significantly darker stools. She reports some nausea and diarrhea, which have been improving. She also reports mild lower extremity edema and left arm swelling. Exam Vital Signs Vital Sign - Last Date Time Temp Pulse Resp B/P Pulse Ox O2 Delivery O2 Flow Rate FiO2 10/23/16 08:38 36.5 99 17 112/78 99 Room Air Intake and Output 10/22/16 10/22/16 10/23/16 Cumulative From/Thru 15:00 23:00 07:00 10/21/16 14:55 - 10/23/16 06:47 Intake Total 1509 ml 2044 ml 6546 ml Output Total 795 ml 1075 ml 1870 ml Balance 714 ml 969 ml 4676 ml Intake Oral 300 ml 225 ml 1125 ml IV Total 1209 ml 1819 ml 5421 ml Output Urine Total 525 ml 400 ml 925 ml Other 270 ml 675 ml 945 ml # Voids 1 # Bowel Movements 1 2 Exam General: Alert, Oriented X3, Cooperative, No Acute Distress Head: Normocephalic, atraumatic. External ears normal. Cheeks swollen bilaterally, R>L. Eyes: PERRLA, EOMI. Anicteric sclerae. Mouth: Mouth Normal, Mucous Membranes Moist/[place] Neck: Neck supple with full range of motion. Chest & Lungs: Clear to auscultation bilaterally with no crackles, wheezes, or rhonchi. Cardiovascular: Regular Rate/Rhythm, Normal S1, Normal S2, No Murmurs/Rubs/ Gallops Abdomen: No tenderness, Ileostomy bag in place, Non-distended, No masses, Normoactive bowel tones, Soft Musculoskeletal: Normal Range of Motion. Left arm swelling. Extremities: Mild bilateral lower extremity edema Neurological: Grossly Neurologically Intact, Normal Speech, Strength Normal 4/ 4 ext, Normal Gait Lab and Diagnostics Result Diagram: 10/23/16 0604 10/23/16 0604 Assessment & Plan Patient is a 31 year old female with a history of anxiety and Crohn's disease s/ p total proctocolectomy with end ileostomy who presents to the ED with a one week of watery diarrhea in her ileostomy bag, mild hematochezia, and abdominal pain. Tested positive for norovirus. Acute norovirus gastroenteritis - Pt reports 1 week of nausea/vomiting/diarrhea, and abdominal pain after contact with 2 children with similar symptoms. Stool PCR was positive for norovirus. Continue supportive treatment - Supportive treatment - IV fluids, antiemetics, pain control Microcytic anemia, acute. - Pt presented with Hb 11.8, which dropped to 8.6 , then to 7.6. MCV was 79.2, likely iron deficiency anemia secondary to GI blood loss. She now reports dark stools. If she continues to drop in Hb, will discuss endoscopy. - Trend H&H regularly - Transfuse if necessary. - Consider iron supplements - Continue to monitor for signs of overt bleeding Possible acute GI bleed - Pt reports hematochezia over the past week. She reports recent dark stools overnight. - Continue to monitor for signs of overt bleeding Left arm swelling - Consider upper extremity DVT given her Crohn's disease. History of Crohn's Disease - Currently on Humira and Prednisone. She is s/p total proctocolectomy with end ileostomy and has a history of stomal strictures - Continue Humira and Prednisone. Decrease prednisone to 30 mg daily and taper down. GI Prophylaxis: Proton Pump Inhibitor Resuscitation Status: CPR: Attempt Resuscitation Attending Statement Patient seen and examined with Dr Machado today. Agree with assessment and plan. We recommended LUE us in light of the left arm swelling. U/S was positive for extensive DVT. At time of this addendum, patient was started on Lovenox. Had some darker stool overnight, but subsequently stool was a bailey brown color and closer to actual stool consistency. No n/v. Tolerated diet, but has requested outside food be brought in which is just fine. We reduced her prednisone for today and she did not notice any concerning changes from a GI standpoint. Will hold off on repeat dilatation of stoma. Would recommend patient be considered for blood transfusion in that she is being started on anticoagulation. If there is any element of repeat blood seen in the stoma bag , then endoscopic examination will need to be pursued urgently. Otherwise, would like to see a repeat stool PCR when diarrhea subsides to confirm absence of Norovirus. Shmuel Machado Oct 23, 2016 11:31 Kirby Valdez MD Oct 23, 2016 21:39
--- NOTE | 2016-10-23 11:46 | NUR ---
Generalized edema Pt's left arm is very swollen. Pt c/o discomfort. Arm elevated and swelling decreased. Pt also has bilateral leg swelling and is now requesting Lasix. Hospitalist chava.
--- NOTE | 2016-10-23 17:09 | DRSVH ---
PROCEDURE: US VENOUS ARM DUPLEX UNILATERAL, LEFT INDICATIONS: L arm swelling TECHNIQUE: Real-time imaging, as well as color and pulse Doppler interrogation, was performed of the left upper extremity deep veins from the inferior neck to the antecubital fossa. COMPARISON: None. FINDINGS: The internal jugular vein is patent. The subclavian vein is occluded throughout its entire ty. Visualized portions of the cephalic vein are occluded. 4 brachial veins are visualized, 3 of whic h are occluded and, one of which is partially patent. The basilic vein is not visualized. The axillar y vein is occluded. IMPRESSION: 1. Extensive deep vein thrombosis of the left upper extremity as described above. These findings were discussed with Genoveva Jacob RN at 4:50 PM by the senior hydrogeologist. Dictated by: Lynnette Villa M.D. on 10/23/2016 at 17:07 Approved by: Lynnette Villa M.D. on 10/23/2016 at 17:07
--- NOTE | 2016-10-23 17:16 | NUR ---
Clot Received phone call from US staff, patient is positive for Clot, subclavian, brachial, cephalic is occluded. Result relayed to Dr. Lauren. Patient will have to start taking Lovenox for treatment. Will continue to monitor.
--- NOTE | 2016-10-23 18:10 | NUR ---
Pain Pt requested medication for breakthrough pain. Oxycodone is not yet due. Hospitalist paged.
--- NOTE | 2016-10-23 18:15 | PCM.PNMED ---
Subjective Date of Service Oct 23, 2016 Subjective Patient was seen and examined today at bedside. Patient denied any complaints of chest pain, shortness of breath, nausea, vomiting, constipation. Patient only complained of mild abdominal pain and stated that she felt her diarrhea was starting to resolve. Later in the afternoon the patient was complaining of left arm swelling and mild tenderness to palpation. An ultrasound of the left upper extremity was performed and showed that the patient did have a DVT and she was started on anticoagulation. Exam Vital Signs Vital Sign - Last Date Time Temp Pulse Resp B/P Pulse Ox O2 Delivery O2 Flow Rate FiO2 10/23/16 17:15 36.7 88 18 116/74 99 Room Air Intake and Output 10/22/16 10/22/16 10/23/16 Cumulative From/Thru 15:00 23:00 07:00 10/21/16 14:55 - 10/23/16 06:47 Intake Total 1509 ml 2044 ml 6546 ml Output Total 795 ml 1075 ml 1870 ml Balance 714 ml 969 ml 4676 ml Intake Oral 300 ml 225 ml 1125 ml IV Total 1209 ml 1819 ml 5421 ml Output Urine Total 525 ml 400 ml 925 ml Other 270 ml 675 ml 945 ml # Voids 1 # Bowel Movements 1 2 Exam Physical Exam: GEN: Patient was awake, alert, responding appropriately to questions HEENT: PERRLA, EOMI, Neck soft supple, trachea midline, nomocephalic/atraumatic CV: +S1/S2, RRR, no murmurs auscultated Respiratory: CTAB, no wheezes, rales, rhonchi GI: +bowel sounds x4, soft, compressible, Monopril TTP EXT: no c/c, left upper extremity swelling in the antecubital fossa area with mild tenderness to palpation Muscular skeletal:AIN/PIN/radial/ulnar nerve intact, 5/5 muscle strength, positive 5/5 wound care nurse strength Neuro: CN II-XII grossly intact, +2/4 radial and ulnar pulses Psych: mood and affect were appropriate IVs and Medications Medications Reviewed: Medications were reviewed in detail Medications Current Medications Hydromorphone HCl 0.5 mg Q15MIN PRN IVPUSH Last administered on 10/21/16t 21:01 ; Admin Dose 0.5 MG; Start 10/21/16 at 18:25; Stop 10/22/16 at 18:27; Status DC Ondansetron HCl 4 mg 4 mg Q15M PRN IVPUSH; Start 10/21/16 at 18:25; Stop at 18:30; Status DC Sodium Chloride 1,000 ml @ 125 mls/hr Q8H IV Last administered on 10/23/16 10: 29; Admin Dose 125 MLS/HR; Start 10/21/16 at 19:15 Ciprofloxacin 250 mg BID PO Last administered on 10/22/16 07:50; Admin Dose 250 MG; Start 10/21/16 at 20:30; Stop 10/22/16 at 18:27; Status DC Metronidazole HCl 250 mg Q8 PO; Start 10/21/16 at 20:30; Stop 10/21/16 at 20:30 ; Status DC Metronidazole HCl 250 mg Q8H PO Last administered on 10/22/16 12:12; Admin Dose 250 MG; Start 10/21/16 at 20:30; Stop 10/22/16 at 18:27; Status DC Al Hydrox/Mg Hydrox/Simethicone 30 ml Q6H PRN PO; Start 10/21/16 at 20:50 Hydromorphone HCl 1 mg Q3H PRN IVPUSH Last administered on 10/22/16 15:07; Admin Dose 1 MG; Start 10/21/16 at 20:50; Stop 10/22/16 at 18:27; Status DC Prednisone 40 mg DAILY PO Last administered on 10/22/16 07:50; Admin Dose 40 MG ; Start 10/22/16 at 08:30; Stop 10/22/16 at 18:29; Status DC Lorazepam 1 mg HS PRN PO Last administered on 10/22/16 22:14; Admin Dose 1 MG ; Start 10/22/16 at 00:15 Ketorolac Tromethamine 15 mg Q6H PRN IVPUSH Last administered on 10/22/16 11: 10; Admin Dose 15 MG; Start 10/22/16 at 03:30; Stop 10/22/16 at 18:27; Status DC Oxycodone HCl 5 TO 10 MG Q6H PRN PO Last administered on 10/23/16 14:19; Admin Dose 10 MG; Start 10/22/16 at 18:30 Prednisone 30 mg DAILY PO Last administered on 10/23/16 08:05; Admin Dose 30 MG ; Start 10/23/16 at 08:30 Ondansetron HCl 4 mg Q4H PRN IVPUSH Last administered on 10/22/16 18:45; Admin Dose 4 MG; Start 10/22/16 at 18:35 Calcium Carbonate 500 mg TIDWM PO Last administered on 10/23/16 16:32; Admin Dose 500 MG; Start 10/23/16 at 08:00 Lab and Diagnostics Result Diagram: 10/23/16 0604 10/23/16 0604 X-Rays, CTs and MRIs Date of Service: 10/23/16 1541 PROCEDURE: US VENOUS ARM DUPLEX UNILATERAL, LEFT INDICATIONS: L arm swelling TECHNIQUE: Real-time imaging, as well as color and pulse Doppler interrogation, was performed of the left upper extremity deep veins from the inferior neck to the antecubital fossa. COMPARISON: None. FINDINGS: The internal jugular vein is patent. The subclavian vein is occluded throughout its entirety. Visualized portions of the cephalic vein are occluded. 4 brachial veins are visualized, 3 of which are occluded and, one of which is partially patent. The basilic vein is not visualized. The axillary vein is occluded. IMPRESSION: 1. Extensive deep vein thrombosis of the left upper extremity as described above. These findings were discussed with Genoveva Jacob RN at 4:50 PM by the binding bench worker. Dictated by: Lynnette Villa M.D. on 10/23/2016 at 17:07 Approved by: Lynnette Villa M.D. on 10/23/2016 at 17:07 Assessment & Plan Patient is a 31 year old female with a history of anxiety and Crohn's disease s/ p total proctocolectomy with end ileostomy who presents to the ED with a one week of watery diarrhea in her ileostomy bag, mild hematochezia, and abdominal pain. Tested positive for norovirus. Acute norovirus gastroenteritis - Pt reports 1 week of nausea/vomiting/diarrhea, and abdominal pain after contact with 2 children with similar symptoms. Stool PCR was positive for norovirus. Continue supportive treatment - Supportive treatment IV fluids, antiemetics, pain control Microcytic anemia, acute. - Pt presented with Hb 11.8, which dropped to 8.6 , then to 7.6. MCV was 79.2, likely iron deficiency anemia secondary to GI blood loss. She now reports dark stools. If she continues to drop in Hb, will discuss endoscopy. - Trend H&H regularly - Transfuse if necessary. - Consider iron supplements - Continue to monitor for signs of overt bleeding Possible acute GI bleed - Pt reports hematochezia over the past week. She reports recent dark stools overnight. - Continue to monitor for signs of overt bleeding Left upper extremity DVT - Anticoagulation with Lovenox twice a day History of Crohn's Disease - Currently on Humira and Prednisone. She is s/p total proctocolectomy with end ileostomy and has a history of stomal strictures - Continue Humira and Prednisone. Decrease prednisone to 30 mg daily and taper down. Disposition: Patient currently has a DVT and is being anticoagulated however may have to discontinue this as the patient's hemoglobin and hematocrit seem to be dropping and the patient may have a GI bleed. We will contact GI in the morning and running Hemoccult stool on the patient for further confirmation. Patient will be made nothing by mouth at midnight in case they want to do a GI scope on her. GI Prophylaxis: Proton Pump Inhibitor Resuscitation Status: CPR: Attempt Resuscitation Trena Lauren DO Oct 23, 2016 18:15
--- NOTE | 2016-10-23 19:22 | NUR ---
Lovenox Pharmacy called twice re: lack of Lovenox in [facility]. Pass off given to computer systems hardware analyst.
[2016-10-23] MEDS: LORazepam 1 mg Tablet PO PRN (23:32)
[2016-10-24] MEDS: 0.9% Sodium Chloride 1,000 ML IV SCH ×3 (03:28→19:12)
--- NOTE | 2016-10-24 04:57 | NUR ---
Pain Lovenox 1st dose given last night. Pt requested to have Oxycodone for breakthrough pain. One time 5 mg Oxycodone given and pt reported that it helps a lot with pain. She mentioned that she normally takes Oxycodone 15 mg q6h prn at home. Addendum: 10/24/16 at 0713 by WILVER MONIQUE RN Ileostomy have only about 15 cc through the night. Pt reported not eating as much last night as well.
[2016-10-24 05:02] VITALS: BP 103/70; PULSE 90; RESP 18; O2SAT 98
[2016-10-24 07:33] LABS: INR 1.16 ratio
[2016-10-24 07:34] LABS: Mean Corpuscular Volume 80.3 fL (81-100)
[2016-10-24] MEDS: predniSONE 20 mg Tablet PO SCH (11:43)
[2016-10-24] MEDS: Ondansetron 2 mg/mL 2 mL Inj IVPUSH PRN (13:37)
[2016-10-24 14:22] LABS: Mean Corpuscular Hemoglobin 25.1 pg (27.0-35.0); Mean Corpuscular Volume 81.4 fL (81-100)
--- NOTE | 2016-10-24 15:00 | NUR ---
NUTRITION FOLLOW-UP: Assess: 31 yo F w/ Crohn's admitted for dehydration d/t persistently high output from ileostomy and new leukocytosis. Pt w/ recent admission during which she required TPN 09/2016. Pt states that since her previous admission she has not been able to put on any wt and food seems to go right through her. She has been drinking extra fluids to try to stay hydrated. Pt is living with her mother who has been recently making smoothies for pt and states that she tolerates them well. Over the course of 1 yrs pt went from 120 lbs to 85 lbs. Pt is on a general diet with fair PO at 50-75%. She was NPO this AM for potential scope but per RN, pt is not having procedure today. Pt's wt since admit has increased 6.8kg, but this may be related to fluids. PMHx: SBO, Malnutrition, Crohns, Ileostomy, Perirectal fistula, Iron deficiency, Coagulation disorder, Ileal pancolitis, Abdominal protocolectomy, Tympanostomy, Low grade TETO. LABS: Reviewed. Na 3.2, Bun 5, Biztalk Administrator .42, Ca 6.5, Alb 1.1 MEDICATIONS: Prednisone, Zofran DIET: General, PO 50-75% DIET Hx/INTAKE RESTAURANT AND BAR MANAGER: NUTRITION FOCUSED PHYSICAL ASSESSMENT: GI symptoms/stool: BM x1 10/21 Wilfrido: 20 Skin integrity: No issues noted Overall Appearance: Thin woman lying in bed - thinning noted in triceps, biceps, and forearms. ANTHROPOMETRICS: Current Wt: 44.8 kg BMI: 16.4 kg/m2 Admit Wt: 38.6 kg IBW: 56.8 kg Recent wt changes: Wt loss (35 lbs x1 yrs = 29%, significant) ESTIMATED NEEDS: Malnutrition (based off admit wt) Calories: 3893-4230 kcal/d (35-40 kcal/kg/d) Protein: 45-70 g/d (1.2-1.8 g/kg/d) Fluids: 8901-6337 ml/d (1 ml/kcal/d) NUTRITION DIAGNOSIS: 1) Severe malnutrition related to GI abnormalities as evidenced by BMI of 14.2 kg/m2, loss of LBM, and 29% wt loss x1 yr.--PERSISTS INTERVENTION: 1) As pt has a history of not being able to maintain an appropriate BW via oral nutrition and likely is not able to absorb nutrients due to altered GI function, strongly recommend TPN be considered to help optimize pt's nutrition status. 2) Recommend TPN to start at ~45% kcal and pro needs. Recommend 110g Dex, 25g AA and 20g lipids to provide 675kcal and 25g pro. Will monitor labs closely for signs of re-feeding. 3) Once tolerance has been established, recommend slowly advance to goal TPN of 200g Dex, 65g AA and 45g lipids to provide 1390kcal and 65g pro (100% estimated needs). 4) Goal TPN meets lower range of estimated needs. If PO intake is minimal, recommend increase TPN to better meet kcal needs. 5) Will continue to send Ensure CL per pt preference 6) High calorie/protein recipe book provided this admit and last admit 7) Daily wt requested. Will continue to monitor wt closely MONITOR/EVALUATE: PO intake, Nutrition support, GI, Wt, Nutrition status, POC. Will follow per high nutrition risk guidelines.
--- NOTE | 2016-10-24 16:57 | NUR ---
Pain Pt is complaining of abdominal pain "7/10" for much of the shift. Current pain regimen (which is 10mg of oxycodone q6 hours) is not adequate in controlling pain at this time. Doctor notified, one time dose of 15mg of oxycodone was given. Pt reports that was helpful in reducing pain. Ileostomy having only a small amount of soft-liquid output today. Pt is experiencing nausea and a decreased appetite.
--- NOTE | 2016-10-24 17:09 | PCM.PNMED ---
Subjective Date of Service Oct 24, 2016 Subjective Pt reports mild nausea overnight, no vomiting. Still having watery stool but no more dark stool or blood in stool. She reports mild diffuse abdominal pain. Denies fevers, chills, CP, SOB. Continues to have left arm swelling. Exam Vital Signs Vital Sign - Last Date Time Temp Pulse Resp B/P Pulse Ox O2 Delivery O2 Flow Rate FiO2 10/24/16 05:02 36.3 90 18 103/70 98 Room Air Intake and Output 10/23/16 10/23/16 10/24/16 Cumulative From/Thru 15:00 23:00 07:00 10/21/16 14:55 - 10/24/16 05:52 Intake Total 3074 ml 9620 ml Output Total 1265 ml 3135 ml Balance 1809 ml 6485 ml Intake Oral 425 ml 1550 ml IV Total 2649 ml 8070 ml Output Urine Total 1250 ml 2175 ml Other 15 ml 960 ml # Voids 1 # Bowel Movements 2 Exam General: Alert, Oriented X3, Cooperative, No Acute Distress Head: Normocephalic, atraumatic. External ears normal. Cheeks swollen bilaterally, R>L. Eyes: PERRLA, EOMI. Anicteric sclerae. Mouth: Mouth Normal, Mucous Membranes Moist/[place] Neck: Neck supple with full range of motion. Chest & Lungs: Clear to auscultation bilaterally with no crackles, wheezes, or rhonchi. Cardiovascular: Regular Rate/Rhythm, Normal S1, Normal S2, No Murmurs/Rubs/ Gallops Abdomen: Mild diffuse tenderness, Ileostomy bag in place, Non-distended, No masses, Normoactive bowel tones, Soft Musculoskeletal: Normal Range of Motion. Left arm swelling. Extremities: Mild bilateral lower extremity edema Neurological: Grossly Neurologically Intact, Normal Speech Lab and Diagnostics Result Diagram: 10/24/16 1355 10/24/16 0640 X-Rays, CTs and MRIs Date of Service: 10/23/16 1541 PROCEDURE: US VENOUS ARM DUPLEX UNILATERAL, LEFT INDICATIONS: L arm swelling TECHNIQUE: Real-time imaging, as well as color and pulse Doppler interrogation, was performed of the left upper extremity deep veins from the inferior neck to the antecubital fossa. COMPARISON: None. FINDINGS: The internal jugular vein is patent. The subclavian vein is occluded throughout its entirety. Visualized portions of the cephalic vein are occluded. 4 brachial veins are visualized, 3 of which are occluded and, one of which is partially patent. The basilic vein is not visualized. The axillary vein is occluded. IMPRESSION: 1. Extensive deep vein thrombosis of the left upper extremity as described above. These findings were discussed with Genoveva Jacob RN at 4:50 PM by the anatomic pathology manager. Dictated by: Lynnette Villa M.D. on 10/23/2016 at 17:07 Approved by: Lynnette Villa M.D. on 10/23/2016 at 17:07 Assessment & Plan Patient is a 31 year old female with a history of anxiety and Crohn's disease s/ p total proctocolectomy with end ileostomy who presents to the ED with a one week of watery diarrhea in her ileostomy bag, mild hematochezia, and abdominal pain. Tested positive for norovirus. Acute norovirus gastroenteritis - Pt reports 1 week of nausea/vomiting/diarrhea, and abdominal pain after contact with 2 children with similar symptoms. Stool PCR was positive for norovirus. Continue supportive treatment - Supportive treatment - IV fluids, antiemetics, pain control - Consider repeat stool PCR in 1-2 weeks. Viral shedding continues for 2 weeks after onset of symptoms. Microcytic anemia, acute. Stable. - Pt presented with Hb 11.8, which dropped to 8.6 , then to 7.6. Now improved to 8.5 spontaneously. MCV was 79.2, likely iron deficiency anemia secondary to GI blood loss. If she continues to drop in Hb, will discuss endoscopy. - Trend H&H regularly - Transfuse if necessary. - Consider iron supplements - Continue to monitor for signs of overt bleeding Possible acute GI bleed. Stable. - Pt reports hematochezia over the past week. She reported dark stool, but today reports her stool is normal color. H&H has stabilized, but she is now on Lovenox for L arm DVT. - Continue to monitor for signs of overt bleeding Left arm DVT - Pt complains of L arm swelling, recent history of PICC line placement in left arm. Left arm duplex read: The subclavian vein is occluded throughout its entirety. Visualized portions of the cephalic vein are occluded. 4 brachial veins are visualized, 3 of which are occluded and, one of which is partially patent. The basilic vein is not visualized. The axillary vein is occluded. - Lovenox 40 mg SQ BID. Monitor for signs of GI bleed. History of Crohn's Disease - Currently on Humira and Prednisone. She is s/p total proctocolectomy with end ileostomy and has a history of stomal strictures - Continue Humira and Prednisone. - Decrease prednisone to 30 mg daily and taper down. - Will hold off on dilation of stoma for now. GI Prophylaxis: Proton Pump Inhibitor Resuscitation Status: CPR: Attempt Resuscitation Attending Statement Patient was seen and examined. Agree with assessment and plan as described by Dr Machado. On therapy for left arm DVT. Anemic but h/h up slightly and no sign of any active GI bleeding. Stools have thickened up. At this point, would have low threshold to pursue CT chest to exclude PE if any new concerning cardiopulmonary symptoms. Endoscopy only if any signs of melena or edy bleeding. Hold off on stoma dilatation. Norovirus can be present in stool for up to two weeks even if symptoms have abated. Therefore, would be trotter to keep isolation precautions in place for now. Shmuel Machado Oct 24, 2016 17:09 Kirby Valdez MD Oct 24, 2016 21:37
--- NOTE | 2016-10-24 17:20 | PCM.PNMED ---
Subjective Date of Service Oct 24, 2016 Subjective Patient was examined at bedside today. Patient denies any chest pain, shortness of breath, nausea, vomiting. Patient still reports diarrhea and left arm pain however the patient states the left arm pain has improved and the swelling has also improved. Patient denies any edy blood in the ostomy bag. Exam Vital Signs Vital Sign - Last Date Time Temp Pulse Resp B/P Pulse Ox O2 Delivery O2 Flow Rate FiO2 10/24/16 05:02 36.3 90 18 103/70 98 Room Air Intake and Output 10/23/16 10/23/16 10/24/16 Cumulative From/Thru 15:00 23:00 07:00 10/21/16 14:55 - 10/24/16 05:52 Intake Total 3074 ml 9620 ml Output Total 1265 ml 3135 ml Balance 1809 ml 6485 ml Intake Oral 425 ml 1550 ml IV Total 2649 ml 8070 ml Output Urine Total 1250 ml 2175 ml Other 15 ml 960 ml # Voids 1 # Bowel Movements 2 Exam Physical Exam: GEN: Patient was awake, alert, responding appropriately to questions HEENT: PERRLA, EOMI, Neck soft supple, trachea midline, nomocephalic/atraumatic , facial edema most likely secondary to chronic steroid use CV: +S1/S2, RRR, positive systolic murmur (patient is aware of the murmur and has been worked up previously for it) Respiratory: CTAB, no wheezes, rales, rhonchi GI: +bowel sounds x4, soft, compressible, mild TTP, ostomy bag in intact ileostomy with watery output. EXT: No clubbing cyanosis or edema in the right upper extremity, left upper extremity positive swelling in the antecubital region Neuro: CN II-XII grossly intact, +2/4 radial and ulnar pulse Muscular skeletal: AIN/PIN/radial/ulnar nerve are intact Psych: mood and affect were appropriate IVs and Medications Medications Reviewed: Medications were reviewed in detail Medications Current Medications Oxycodone HCl 5 TO 10 MG Q6H PRN PO Last administered on 10/24/16 09:19; Admin Dose 10 MG; Start 10/22/16 at 18:30 Prednisone 30 mg DAILY PO Last administered on 10/24/16 11:43; Admin Dose 30 MG ; Start 10/23/16 at 08:30 Ondansetron HCl 4 mg Q4H PRN IVPUSH Last administered on 10/24/16 13:37; Admin Dose 4 MG; Start 10/22/16 at 18:35 Calcium Carbonate 500 mg TIDWM PO Last administered on 10/24/16 13:37; Admin Dose 500 MG; Start 10/23/16 at 08:00 Enoxaparin Sodium 40 mg 0630,1830 SUBQ Last administered on 10/24/16 06:44; Admin Dose 40 MG; Start 10/23/16 at 18:30 Lab and Diagnostics Result Diagram: 10/24/16 1355 10/24/16 0640 X-Rays, CTs and MRIs Date of Service: 10/23/16 1541 PROCEDURE: US VENOUS ARM DUPLEX UNILATERAL, LEFT INDICATIONS: L arm swelling TECHNIQUE: Real-time imaging, as well as color and pulse Doppler interrogation, was performed of the left upper extremity deep veins from the inferior neck to the antecubital fossa. COMPARISON: None. FINDINGS: The internal jugular vein is patent. The subclavian vein is occluded throughout its entirety. Visualized portions of the cephalic vein are occluded. 4 brachial veins are visualized, 3 of which are occluded and, one of which is partially patent. The basilic vein is not visualized. The axillary vein is occluded. IMPRESSION: 1. Extensive deep vein thrombosis of the left upper extremity as described above. These findings were discussed with Genoveva Jacob RN at 4:50 PM by the wrecker driver. Dictated by: Lynnette Villa M.D. on 10/23/2016 at 17:07 Approved by: Lynnette Villa M.D. on 10/23/2016 at 17:07 Assessment & Plan Patient is a 31 year old female with a history of anxiety and Crohn's disease s/ p total proctocolectomy with end ileostomy who presents to the ED with a one week of watery diarrhea in her ileostomy bag, mild hematochezia, and abdominal pain. Tested positive for norovirus. Acute norovirus gastroenteritis -- Pt reports 1 week of nausea/vomiting/diarrhea, and abdominal pain after contact with 2 children with similar symptoms. Stool PCR was positive for norovirus. Continue supportive treatment -- Supportive treatment antiemetics, pain control -- Stop IV fluids Microcytic anemia, acute. Stable. - H&H this morning 8.0 which is increased by noontime to 8.5 - Trend H&H regularly - Transfuse if necessary. - Consider iron supplements - Continue to monitor for signs of overt bleeding Possible acute GI bleed. Stable. -- H&H has stabilized, but she is now on Lovenox for L arm DVT. -- Continue to monitor for signs of overt bleeding Left arm DVT -- Pt complains of L arm swelling, recent history of PICC line placement in left arm. Left arm duplex read: The subclavian vein is occluded throughout its entirety. Visualized portions of the cephalic vein are occluded. 4 brachial veins are visualized, 3 of which are occluded and, one of which is partially patent. The basilic vein is not visualized. The axillary vein is occluded. -- Lovenox 40 mg SQ BID. Monitor for signs of GI bleed. -- Monitor PT INR for therapeutic ranges History of Crohn's Disease -- Currently on Humira and Prednisone. She is s/p total proctocolectomy with end ileostomy and has a history of stomal strictures -- Continue Humira and Prednisone. -- Decrease prednisone to 30 mg daily and taper down. -- GI will hold off on dilation of stoma for now. Disposition: Patient is currently progressing well. We will continue to monitor the patient's H&H as she is currently on Lovenox but also has a DVT. The patient's H&H has been low but rebounding. Patient understands that should her H&H continued to drop she may need a transfusion and she is amenable to this. We will continue to monitor the patient's H&H as well as her dehydration status and possible GI bleeding. GI Prophylaxis: Proton Pump Inhibitor Resuscitation Status: CPR: Attempt Resuscitation Trena Lauren DO Oct 24, 2016 17:20
[2016-10-24 19:32] VITALS: BP 105/68; PULSE 101; RESP 16; O2SAT 96
[2016-10-24 21:41] VITALS: BP 120/80; PULSE 101; RESP 17; O2SAT 99
--- NOTE | 2016-10-24 21:56 | NUR ---
Transfer to [facility] phone report given to Samantha Fox RN, transported pt via wheelchair @[phone], pt stable, chart and meds given to receiving RN.
[2016-10-24 22:00] VITALS: BP 107/74; PULSE 96; RESP 20; O2SAT 99
--- NOTE | 2016-10-24 23:00 | NUR ---
Transfer Patient arrived to room 1024 via wheelchair around 2144. Able to stand and walk into room independently. A&Ox4, gait steady. Answering questions appropriately. Placed on enteric contact precautions r/t norovirus dx. Ileostomy stoma red in color. Oriented to room & call light.
[2016-10-24] MEDS: LORazepam 1 mg Tablet PO PRN (23:02)
[2016-10-25 02:00] VITALS: BP 102/67; PULSE 89; RESP 20; O2SAT 96
[2016-10-25 06:46] LABS: Mean Corpuscular Hemoglobin 25.3 pg (27.0-35.0); Mean Corpuscular Volume 80.4 fL (81-100)
[2016-10-25 06:58] LABS: INR 1.15 ratio
[2016-10-25] MEDS: predniSONE 20 mg Tablet PO SCH (10:11)
--- NOTE | 2016-10-25 14:19 | PROG NOTE ---
[address] [address] PROGRESS NOTE PATIENT: MAE FELIZ : 1985 MR#: [id number] ADMIT: 10/21/2016 JOB ID: [id number] DATE: 10/25/2016 SUBJECTIVE: The stool is a relatively normal consistency and brown. She had a bone IV earlier this morning and this made her a little nauseated. She did not eat as much food as she should have. She has had some spontaneous leakage of serous fluid from her left upper extremity, especially near the previous insertion point where the PICC had been placed. She is a little short of breath at times and could feel her heart racing but denies any chest pain, pleuritic or otherwise. She remains on therapeutic dose Lovenox 40 mg twice per day. OBJECTIVE: The patient is in no distress. She was little tearful in considering her many clinical issues at present. Temperature 36.0, pulse 89m, breathing 20, blood pressure 102/67, 96% on room air. The patient is in no distress. Alert, oriented, appropriate, cooperative. The transparent stoma bag was visualized and appeared to have a normal brown colored stool debris in it. She has continued moderate swelling of the left upper extremity. LABORATORIES: Sodium 131, potassium 3.4, chloride 103, bicarb 20, BUN 4, creatinine 0.44, glucose 96, calcium 7.1. Liver tests normal. Albumin low at 1.4. INR 1.15. Hemoglobin 8.0, hematocrit 25.4, white count 6.0, platelets 215. ASSESSMENT AND RECOMMENDATIONS: A 31-year-old female with complex Crohn's. Today would be her dose for Humira (this would be the first 40 mg subcutaneous injection and would be continued every two weeks thereafter). For now, I would recommend we continue the prednisone 30 mg with the plan to taper it down to 25 in the next five days. 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 I have a page out to the radiology service to determine if there is any more aggressive option they have to remedy this scenario. In that some of these approaches can even call for an open venoplasty following a thoracic outlet decompression, because of this I think it would be reasonable to hold off on the Humira until we learn of the direction on that score. The patient is otherwise encouraged to continue aggressive oral nutrition. In the meantime I would recommend she have a CT chest with IV contrast to get a better sense as to what is going on in the realm of the subclavian on the left, plus exclude any pulmonary emboli that have already potentially occurred. Certainly if there is no evidence of pulmonary embolus at present, then I would recommend the patient be considered for perhaps one more unit of blood transfusion in light of her functional dyspnea.
--- NOTE | 2016-10-25 14:30 | DRSVH ---
PROCEDURE: CT ANGIO CHEST PULMONARY EMBOLISM ([id number]) INDICATIONS: SHORTNESS OF BREATH & L SUBCLAVIAN DVT TECHNIQUE: After the administration of intravenous contrast, 2 mm thick sections acquired from the pulmonary api ivana to the posterior costophrenic angles. 3-dimensional maximum intensity projection (MIP) coronal a nd sagittal reformats were then acquired through the thorax. For radiation dose reduction, the follo wing was used: automated exposure control, adjustment of mA and/or kV according to patient size. COMPARISON: [facility], , US VENOUS ARM DPLX UNI LT, 10/23/2016, 16:07. FINDINGS: Image quality: Excellent. Pulmonary arteries: Bilateral pulmonary emboli are identified extending into both upper and lower lob es. No emboli are present in the main pulmonary arteries. Pulmonary emboli are identified in the seco nd, third and more distal branches. Lungs and pleura: Lungs are clear. No pleural effusions or pneumothorax. Central and peripheral ai rways are patent. Mediastinum: Heart size is normal, without pericardial effusion. No mediastinal or hilar adenopathy . Thoracic aorta is normal in caliber and enhancement. Esophagus is normal in caliber, without hiat al hernia. There is diminished opacification of the subclavian vasculature on the left, which may be related to known thrombosis versus injection timing. Bones and chest wall: No suspicious bony lesions. Ribs and thoracic spine appear intact throughout. Thyroid gland is unremarkable. No axillary or supraclavicular adenopathy. Abdomen: Visualized upper abdominal solid organs appear normal in the early arterial phase of enhanc ement. IMPRESSION: 1. Bilateral pulmonary emboli as described above without evidence of central embolus. 2. Mild bilateral pleural effusions. The above findings were discussed with Dr. Kirby Valdez on 10/31/16 at 2:20 PM Dictated by: Elsy Huston M.D. on 10/25/2016 at 14:25 Approved by: Elsy Huston M.D. on 10/25/2016 at 14:25
[2016-10-25 14:43] VITALS: BP 116/78; PULSE 102; RESP 18; O2SAT 97
[2016-10-25] MEDS: Ondansetron 2 mg/mL 2 mL Inj IVPUSH PRN (14:52)
--- NOTE | 2016-10-25 15:07 | NUR ---
Social Work: EREN EREN signed
[2016-10-25] MEDS: Pantoprazole 20 mg ER24 Tablet PO SCH (16:04)
--- NOTE | 2016-10-25 17:57 | NUR ---
Rash Patient broke out in rash on upper extremities. MD notified. Unknown origin, possible Protonix, per MD. 25 mg of Benadryl given. Denies nausea. Patient repositions self for comfort. Call light and tray table within reach. Will continue to monitor patient hourly.
--- NOTE | 2016-10-25 18:31 | NUR ---
All s/s of hives have resolved. Pt resting comfortably. Addendum: 10/25/16 at 1837 by JESSE FERGUSON RN Activity Pt had c/o abdominal pain 5/10 during shift, well controlled with pain meds. One episode of nausea during shift. Pt's IV infiltrated and was removed, IV therapy placed new IV. This AM pt thought she had spilled water on gown since it was wet, but previous PICC line site in left medial arm was having serous fluid actively running out. Gauze with Tegaderm applied and light pressure held on site because of DVT in left arm. notified and inspected site, no other recommendations made and fluid stopped leaking.
--- NOTE | 2016-10-25 18:41 | PCM.PNMED ---
Subjective Date of Service Oct 25, 2016 Subjective Patient was seen and examined at bedside today. Patient complains of some mild shortness of breath with exertion and pain in the left arm at the site of the DVT. Exam Vital Signs Vital Sign - Last Date Time Temp Pulse Resp B/P Pulse Ox O2 Delivery O2 Flow Rate FiO2 10/25/16 14:43 36.7 102 18 116/78 97 Room Air Intake and Output 10/24/16 10/24/16 10/25/16 Cumulative From/Thru 15:00 23:00 07:00 10/21/16 14:55 - 10/25/16 05:17 Intake Total 2521 ml 86868 ml Output Total 2050 ml 5185 ml Balance 471 ml 6956 ml Intake Oral 960 ml 2510 ml IV Total 1561 ml 9631 ml Output Urine Total 2050 ml 4225 ml Other 960 ml # Voids 1 # Bowel Movements 2 Exam Physical Exam: GEN: Patient was awake, alert, responding appropriately to questions HEENT: PERRLA, EOMI, Neck soft supple, trachea midline, nomocephalic/atraumatic , facial edema most likely secondary to chronic steroid use CV: +S1/S2, RRR, positive systolic murmur (patient is aware of the murmur and has been worked up previously for it) Respiratory: CTAB, no wheezes, rales, rhonchi GI: +bowel sounds x4, soft, compressible, mild TTP, ostomy bag in intact ileostomy with adequate output. EXT: No clubbing cyanosis or edema in the right upper extremity, left upper extremity positive swelling in the antecubital region Neuro: CN II-XII grossly intact, +2/4 radial and ulnar pulse Muscular skeletal: AIN/PIN/radial/ulnar nerve are intact Psych: mood and affect were appropriate IVs and Medications Medications Reviewed: Medications were reviewed in detail Medications Current Medications Oxycodone HCl 15 mg Q6H PRN PO Last administered on 10/25/16 14:51; Admin Dose 15 MG; Start 10/24/16 at 18:30 Pantoprazole 20 mg BIDAC PO Last administered on 10/25/16 16:04; Admin Dose 20 MG; Start 10/25/16 at 16:30 Lab and Diagnostics Result Diagram: 10/25/16 1311 10/25/16 0558 X-Rays, CTs and MRIs Date of Service: 10/23/16 5334 PROCEDURE: US VENOUS ARM DUPLEX UNILATERAL, LEFT INDICATIONS: L arm swelling TECHNIQUE: Real-time imaging, as well as color and pulse Doppler interrogation, was performed of the left upper extremity deep veins from the inferior neck to the antecubital fossa. COMPARISON: None. FINDINGS: The internal jugular vein is patent. The subclavian vein is occluded throughout its entirety. Visualized portions of the cephalic vein are occluded. 4 brachial veins are visualized, 3 of which are occluded and, one of which is partially patent. The basilic vein is not visualized. The axillary vein is occluded. IMPRESSION: 1. Extensive deep vein thrombosis of the left upper extremity as described above. These findings were discussed with Genoveva Jacob RN at 4:50 PM by the parts clerk plant maintenance. Dictated by: Lynnette Villa M.D. on 10/23/2016 at 17:07 Approved by: Lynnette Villa M.D. on 10/23/2016 at 17:07 Assessment & Plan Patient is a 31 year old female with a history of anxiety and Crohn's disease s/ p total proctocolectomy with end ileostomy who presents to the ED with a one week of watery diarrhea in her ileostomy bag, mild hematochezia, and abdominal pain. Tested positive for norovirus. Acute norovirus gastroenteritis - Pt reports 1 week of nausea/vomiting/diarrhea, and abdominal pain after contact with 2 children with similar symptoms. Stool PCR was positive for norovirus. Continue supportive treatment - Supportive treatment - IV fluids, antiemetics, pain control - Consider repeat stool PCR in 1-2 weeks. Viral shedding continues for 2 weeks after onset of symptoms. Microcytic anemia, acute. Stable. - Pt presented with Hb 11.8, which dropped to 8.6 , then to 7.6. Now improved to 8.5 spontaneously. MCV was 79.2, likely iron deficiency anemia secondary to GI blood loss. If she continues to drop in Hb, will discuss endoscopy. - Trend H&H regularly - Transfuse if necessary. - Consider iron supplements - Continue to monitor for signs of overt bleeding Possible acute GI bleed. Stable. - Pt reports hematochezia over the past week. She reported dark stool, but today reports her stool is normal color. H&H has stabilized, but she is now on Lovenox for L arm DVT. - Continue to monitor for signs of overt bleeding Left arm DVT - Pt complains of L arm swelling, recent history of PICC line placement in left arm. Left arm duplex read: The subclavian vein is occluded throughout its entirety. Visualized portions of the cephalic vein are occluded. 4 brachial veins are visualized, 3 of which are occluded and, one of which is partially patent. The basilic vein is not visualized. The axillary vein is occluded. - Lovenox 40 mg SQ BID. Monitor for signs of GI bleed. -- Possible interventional radiology to address the clot in the left arm History of Crohn's Disease - Currently on Humira and Prednisone. She is s/p total proctocolectomy with end ileostomy and has a history of stomal strictures - Continue Humira and Prednisone. - Decrease prednisone to 30 mg daily and taper down. - Will hold off on dilation of stoma for now. Disposition: Patient Crohn's flare seems to be resolving as well as the GI bleed. Now currently managing the patient's DVT with bilateral PEs. Interventional radiology was contacted at who were going to transfer her however there are no ICU beds so the patient was unable to be transferred. Interventional radiology was contacted at [facility] he stated they feel the patient may not be a candidate for interventional therapy. Dr. Valdez will contact interventional radiology here for possible intervention tomorrow or Thursday. Patient did have an allergic reaction to possibly Protonix and broke out into hives today. Patient responded immediately to 25 mg of IV Benadryl. We will discontinue the use of Protonix at this time. GI Prophylaxis: Proton Pump Inhibitor Resuscitation Status: CPR: Attempt Resuscitation Time spent Greater than 1 hour Trena Lauren DO Oct 25, 2016 18:41
[2016-10-25 22:15] VITALS: BP 108/70; PULSE 83; RESP 18; O2SAT 98
[2016-10-25] MEDS: LORazepam 1 mg Tablet PO PRN (23:34)
--- NOTE | 2016-10-25 23:49 | NUR ---
Anticoagulant Call received from Dr Valdez at 2100 inquiring if patient on Coumadin. He understood that Dr. Wilkes would be starting her on that medication. Currently patient on Lovenox and Dr. Wilkes not on duty tonight. I reviewed her progress note and found no plan of starting Coumadin and none ordered by her. Call placed to Dr. Mendoza (hospitalist), and reviewed Dr. Medina concerns with her. She will follow-up with Dr. Wilkes in the morning when she comes in.
[2016-10-26] VITALS (8 sets, daily range): BP systolic 102–114; BP diastolic 66–75; PULSE 89–106; RESP 16–18; O2SAT 97–100
--- NOTE | 2016-10-26 00:49 | NUR ---
Sudden onset rash Large red blotchy areas of upper abd, chest, neck and face. Occurred 15 min after eating HS snack of amharic fries, chicken wings and cheese sticks. Also received Ativan 1mg 30 min prior to onset. States slightly itchy, VSS, no change in 02 sats remains between 98-100% no SOB - speaking in full sentences. Dr. Mendoza notified and Benedryl 25mg IV given. Continue to monitor for changes.
--- NOTE | 2016-10-26 02:31 | NUR ---
chest redness resolving can still see some redness. VSS.
[2016-10-26] MEDS: Pantoprazole 20 mg ER24 Tablet PO SCH (07:30)
[2016-10-26 08:18] LABS: Mean Corpuscular Volume 80.7 fL (81-100)
[2016-10-26 08:29] LABS: INR 1.05 ratio
[2016-10-26] MEDS: predniSONE 20 mg Tablet PO SCH (08:50)
[2016-10-26] MEDS: Ondansetron 2 mg/mL 2 mL Inj IVPUSH PRN ×2 (11:05→20:27)
[2016-10-26] MEDS: HYDROmorphone 1 mg/mL Inj IVPUSH PRN ×4 (11:05→22:54)
--- NOTE | 2016-10-26 11:42 | DRSVH ---
PROCEDURE: US VENOUS LEG DUPLEX BILATERAL INDICATIONS: F/U PREVIOUS CLOTS & INCREASED SWELLING TECHNIQUE: Real-time imaging, as well as color and pulse Doppler interrogation, were performed of the deep veins of both legs from the inguinal ligament to the popliteal fossa. COMPARISON: None. FINDINGS: The deep veins are normally compressible, and free of intraluminal thrombus. Color and pu lse Doppler demonstrate normal phasic intravascular flow. There is normal augmentation response to d istal compression maneuver. IMPRESSION: No deep vein thrombosis of the bilateral lower extremities. Dictated by: Lynnette Villa M.D. on 10/26/2016 at 11:40 Approved by: Lynnette Villa M.D. on 10/26/2016 at 11:40
--- NOTE | 2016-10-26 12:50 | PCM.PNMED ---
Subjective Date of Service Oct 26, 2016 Subjective Patient was examined at bedside today. Patient denies any chest pain, nausea, vomiting, diarrhea. Patient does report generalized pain related to the Crohn' s disease. Patient also admits to shortness of breath with exertion. Overnight the patient did have another reaction with breakout in hives. Unsure as to the cause however the patient responded immediately to a one-time dose of IV Benadryl 25 mg. Exam Vital Signs Vital Sign - Last Date Time Temp Pulse Resp B/P Pulse Ox O2 Delivery O2 Flow Rate FiO2 10/26/16 10:35 36.9 106 16 102/66 99 Room Air Intake and Output 10/25/16 10/25/16 10/26/16 Cumulative From/Thru 15:00 23:00 07:00 10/21/16 14:55 - 10/26/16 05:20 Intake Total 736 ml 560 ml 35206 ml Output Total 700 ml 600 ml 6485 ml Balance 36 ml -40 ml 6952 ml Intake Oral 736 ml 560 ml 3806 ml IV Total 9631 ml Output Urine Total 700 ml 600 ml 5525 ml Other 0 ml 0 ml 960 ml # Voids 1 2 # Bowel Movements 2 Exam Physical Exam: GEN: Patient was awake, alert, responding appropriately to questions HEENT: PERRLA, EOMI, Neck soft supple, trachea midline, nomocephalic/atraumatic CV: +S1/S2, RRR, no murmurs auscultated Respiratory: CTAB, no wheezes, rales, rhonchi GI: +bowel sounds x4, soft, compressible, non TTP EXT: no c/c 2+ pitting edema bilaterally Neuro: CN II-XII grossly intact Psych: mood and affect were appropriate IVs and Medications Medications Reviewed: Medications were reviewed in detail Medications Current Medications Oxycodone HCl 15 mg Q6H PRN PO Last administered on 10/26/16 08:52; Admin Dose 5 MG; Start 10/24/16 at 18:30; Stop 10/26/16 at 10:36; Status DC Pantoprazole 20 mg BIDAC PO Last administered on 10/25/16 16:04; Admin Dose 20 MG; Start 10/25/16 at 16:30; Stop 10/26/16 at 09:21; Status DC Oxycodone HCl 10 mg Q6H PRN PO; Start 10/26/16 at 12:30 Hydromorphone HCl 1 mg Q4H PRN IVPUSH Last administered on 10/26/16t 11:05; Admin Dose 1 MG; Start 10/26/16 at 10:35 Lab and Diagnostics Result Diagram: 10/26/16 0804 10/26/16 0804 X-Rays, CTs and MRIs Date of Service: 10/23/16 1541 PROCEDURE: US VENOUS ARM DUPLEX UNILATERAL, LEFT INDICATIONS: L arm swelling TECHNIQUE: Real-time imaging, as well as color and pulse Doppler interrogation, was performed of the left upper extremity deep veins from the inferior neck to the antecubital fossa. COMPARISON: None. FINDINGS: The internal jugular vein is patent. The subclavian vein is occluded throughout its entirety. Visualized portions of the cephalic vein are occluded. 4 brachial veins are visualized, 3 of which are occluded and, one of which is partially patent. The basilic vein is not visualized. The axillary vein is occluded. IMPRESSION: 1. Extensive deep vein thrombosis of the left upper extremity as described above. These findings were discussed with Genoveva Jacob RN at 4:50 PM by the architectural associate. Dictated by: Lynnette Villa M.D. on 10/23/2016 at 17:07 Approved by: Lynnette Villa M.D. on 10/23/2016 at 17:07 Assessment & Plan Patient is a 31 year old female with a history of anxiety and Crohn's disease s/ p total proctocolectomy with end ileostomy who presents to the ED with a one week of watery diarrhea in her ileostomy bag, mild hematochezia, and abdominal pain. Tested positive for norovirus. Acute norovirus gastroenteritis resolving - Patient is gastroenteritis is resolving. The patient's stools are now more well formed and less watery. - Continue supportive treatment antiemetics, pain control -Discontinue IV fluids - Consider repeat stool PCR in 1-2 weeks. Viral shedding continues for 2 weeks after onset of symptoms. Microcytic anemia, acute. Stable. - Pt presented with Hb 11.8, which dropped to 8.6 , then to 7.6. Now improved to 8.5 spontaneously. MCV was 79.2, likely iron deficiency anemia secondary to GI blood loss. If she continues to drop in Hb. -H&H is still tenuous patient H&H this morning was 7.9/25.5, yesterday afternoon it was 8.2/26.7 - Trend H&H regularly - Transfuse if necessary. - Start Iron sulfate drops daily 50 mg by mouth - Continue to monitor for signs of overt bleeding Hypocalcemia-resolving -Patient's calcium is currently 7.1 it has been as low as 6.4. Is currently trending upwards - Continue calcium carbonate 500 mg 3 times a day with meals Lower extremity pain bilaterally most likely secondary to edema -Ultrasound Doppler of the lower extremities are negative -Patient encouraged to ambulate and to sit up in a chair daily and to use SCDs while lying in bed. -If patient's lower extremity edema does not decrease with these conservative measures will consider using a one-time dose of Lasix. The patient's current multiple conditions will try to relieve the edema conservatively. Possible acute GI bleed. Stable. - Pt reports hematochezia over the past week. She reported dark stool, but today reports her stool is normal color. H&H has stabilizing, but she is now on Lovenox for L arm DVT. - Continue to monitor for signs of overt bleeding Left arm DVT - Pt complains of L arm swelling, recent history of PICC line placement in left arm. Left arm duplex read: The subclavian vein is occluded throughout its entirety. Visualized portions of the cephalic vein are occluded. 4 brachial veins are visualized, 3 of which are occluded and, one of which is partially patent. The basilic vein is not visualized. The axillary vein is occluded. - Lovenox 40 mg SQ BID. Monitor for signs of GI bleed. -- Possible interventional radiology to address the clot in the left arm History of Crohn's Disease - Currently on Humira and Prednisone. She is s/p total proctocolectomy with end ileostomy and has a history of stomal strictures - Continue Humira and Prednisone. - Decrease prednisone to 30 mg daily and taper down. - Will hold off on dilation of stoma for now. Disposition: Patient Crohn's flare seems to be resolving as well as the GI bleed. Now currently managing the patient's DVT with bilateral PEs. Dr. Valdez stated that he will contact interventional radiology to discuss possible management of the blood clots. Patient has been encouraged to sit up in chair and continue to walk as tolerated in order to decrease her lower extremity edema. Ultrasound of the lower extremities were done to rule out DVT they were negative. Encouraged patient to ambulate and use SCDs while lying down. Resuscitation Status: CPR: Attempt Resuscitation Time spent Greater than 35 minutes Trena Lauren DO Oct 26, 2016 12:50
[2016-10-26] MEDS: Ferrous Sulfate 15 mg/mL 50 mL Oral Solution PO SCH (14:49)
--- NOTE | 2016-10-26 16:21 | NUR ---
Redness/HR Pt had another episode of red, blotchy lower face and upper chest at 1100. Pt had not had any recent medications or eaten anything. Benadryl given and it seems to have resolved. 1212 Checking on pt and HR is 129 at rest. Pt feeling fine, no increasing SOB or having chest pain. MD notified and advised to have pt sit up in chair. Pt agreeable to sitting in chair. HR varies from 70's to 110's at rest in chair.
--- NOTE | 2016-10-26 17:25 | NUR ---
Transfer of care Pt transferred to room 2027 at 1715 on bed. Report given to [facility] RN. Pt RR, Temp, BP are stable, but pt having tachycardia. 98% on RA. PERALTA, A&O x 3. Tele in [address]. All belongings, chart and medication accompanied pt. Anabella in lab called with aPTT results at 1706 that aPTT was 30.1. New RN notified and results written on board in new room.
[2016-10-26] MEDS: Heparin 25K Unit/500mL 0.45 NS 25,000 UNIT in IV Premix 1 EACH IV SCH (18:03)
[2016-10-26] MEDS: Heparin 5,000 Unit/mL Inj IVPUSH PRN (18:05)
[2016-10-26] MEDS ORDERED: predniSONE 20 mg Tablet PO ONE (19:00)
--- NOTE | 2016-10-26 19:31 | NUR ---
Transfer Pt. transferred from [facility] and came to [facility] room 2027 at ~1800. Pt. VS stable, Pt. was given dilaudid for pain at ~1830 1mL. Pt. is also on contact precaution for noro virus and on DVT/PE protocol. Pt. is content at this time in bed resting comfortably and waiting for her mom to return with food from outside the hospital.
--- NOTE | 2016-10-26 21:15 | PROG NOTE ---
[address] [address] PROGRESS NOTE PATIENT: MAE FELIZ : 1985 MR#: [id number] ADMIT: 10/21/2016 JOB ID: [id number] DATE: 10/26/2016 SUBJECTIVE: From a GI standpoint, the patient remains stable. The stool is quite brown with a reasonably normal consistency for her. She has not had any nausea or vomiting and has tolerated oral nutrition. The patient had an episode of hives last night and it is unclear whether this was related to the IV contrast from her CT or whether it is a consequence of reaction to her Lovenox. At any rate, she responded nicely to Benadryl. I recommended today that the patient be transitioned over to the heparin drip which was a direct recommendation from the interventional radiologist down at the [facility]. OBJECTIVE: The patient is in no distress. Alert, oriented, appropriate, cooperative, conversational. Vital signs are totally stable. She still has obvious left arm edema. LABORATORY DATA: Hemoglobin 7.9, hematocrit 25.5, platelets 232, white count 7.9. BUN 5, creatinine 0.51, calcium 7.1, albumin 1.3, total protein 3.8. The remainder of the metabolic panel was normal. ASSESSMENT AND RECOMMENDATIONS: This is a 31-year-old female with complex Crohn's status post total proctocolectomy with end ileostomy. The stoma has stenosed. Following a couple of rounds of dilatation, she has been to have reasonably normal stool output into her stoma bag and tolerate oral nutrition. She was commenced on Humira and her 1st single 40 mg dose was due yesterday. We have put this on hold temporarily to allow more definitive therapy for her PICC line induced DVT in the left subclavian distribution that has additionally resulted in bilateral pulmonary emboli. As per [facility] Interventional Radiology's recommendations, the patient should be switched over to heparin. I recognized that long-term there were some concerns that perhaps Coumadin might not be the best approach if there is a question as to her ability to absorb this medication. In that event, perhaps something like fondaparinux would be a reasonable alternative. I am not sure what created the hives last night. If it was the contrast, then I have taken the liberty of giving her giving her an extra dose of prednisone and then she should get 50 mg of oral prednisone about 1 hour before a catheter-directed thrombolytics procedure. She is n.p.o. after midnight pending evaluation by Dr. Bonds. Recognize that after any potential intervention on his part, the patient would need to be closely monitored in an ICU bed. She remains on isolation for Norovirus which was found in her stool, but clinically this has resolved. I think it would be reasonable to repeat a stool PCR this coming week. Evidence of the virus in the stool typically takes 1-2 weeks to fully clear even in the absence of symptoms. Depending on how the intervention close with respect to this extensive left subclavian DVT, the patient may resume Humira in the next day or two.
[2016-10-26] MEDS: LORazepam 1 mg Tablet PO PRN (21:58)
[2016-10-27] VITALS (9 sets, daily range): BP systolic 100–110; BP diastolic 39–81; PULSE 81–93; RESP 16–20; O2SAT 96–100
[2016-10-27 02:46] LABS: Mean Corpuscular Hemoglobin 25.4 pg (27.0-35.0); Mean Corpuscular Volume 81.2 fL (81-100)
[2016-10-27 03:00] LABS: INR 1.1 ratio
--- NOTE | 2016-10-27 03:43 | NUR ---
Calcium Provider paged for calcium of 6.8 at 0318.
[2016-10-27] MEDS: HYDROmorphone 1 mg/mL Inj IVPUSH PRN ×5 (04:16→23:27)
--- NOTE | 2016-10-27 05:03 | NUR ---
Heparin/Pain Patient on heparin drip at 18 units/kg/hour. PTT of 79.1 at 0300. Next PTT due at 0900. No signs of bleeding noted. Patient reporting significant abdominal pain through the night; minimal improvement with IV dilauded. NPO for interventional radiology thrombolysis procedure. Continue to monitor.
[2016-10-27] MEDS ORDERED: predniSONE 20 mg Tablet PO PRN (06:00)
[2016-10-27] MEDS: predniSONE 20 mg Tablet PO SCH (08:30)
[2016-10-27] MEDS: Ferrous Sulfate 15 mg/mL 50 mL Oral Solution PO SCH (09:18)
[2016-10-27] MEDS ORDERED: predniSONE 20 mg Tablet PO SCH (09:30)
[2016-10-27] MEDS: LORazepam 1 mg Tablet PO PRN ×2 (10:18→21:31)
--- NOTE | 2016-10-27 10:30 | NUR ---
Evaluation completed. Please go to "Notes" then click on "Assessments and Notes" (bottom left corner of screen). Then select appropriate discipline tab on top of screen.
[2016-10-27] MEDS: Heparin 5,000 Unit/mL Inj IVPUSH PRN (11:23)
--- NOTE | 2016-10-27 11:39 | PCM.PNMED ---
Subjective Date of Service Oct 27, 2016 Subjective Patient reports some mild SOB, improved from the weekend, and now denies palpitations or chest pain. She reports significant anxiety and some nausea. Denies vomiting, diarrhea, fevers, chills, or abdominal pain. Exam Vital Signs Vital Sign - Last Date Time Temp Pulse Resp B/P Pulse Ox O2 Delivery O2 Flow Rate FiO2 10/27/16 11:10 87 10/27/16 09:16 36.4 18 104/71 100 Room Air Intake and Output 10/26/16 10/26/16 10/27/16 Cumulative From/Thru 15:00 23:00 07:00 10/21/16 14:55 - 10/27/16 06:06 Intake Total 872 ml 800 ml 494 ml 02020 ml Output Total 350 ml 900 ml 302 ml 8037 ml Balance 522 ml -100 ml 192 ml 7566 ml Intake Oral 872 ml 800 ml 300 ml 5778 ml IV Total 194 ml 9825 ml Output Urine Total 350 ml 600 ml 2 ml 6477 ml Stool Total 300 ml 300 ml 600 ml Other 0 ml 960 ml # Voids 1 3 # Bowel Movements 2 Exam General: Alert, Oriented X3, Cooperative, No Acute Distress Head: Normocephalic, atraumatic. External ears normal. Cheeks swollen bilaterally, R>L. Eyes: PERRLA, EOMI. Anicteric sclerae. Mouth: Mouth Normal, Mucous Membranes Moist/[place] Neck: Neck supple with full range of motion. Chest & Lungs: Clear to auscultation bilaterally with no crackles, wheezes, or rhonchi. Cardiovascular: Regular Rate/Rhythm, Normal S1, Normal S2, Systolic murmur heard; apparently chronic. Abdomen: Minimal diffuse tenderness, Ileostomy bag in place, Non-distended, No masses, Normoactive bowel tones, Soft Musculoskeletal: Normal Range of Motion. Left arm swelling. Extremities: Mild bilateral lower extremity edema Neurological: Grossly Neurologically Intact, Normal Speech Lab and Diagnostics Result Diagram: 10/27/1623410/27/16234 X-Rays, CTs and MRIs Date of Service: 10/23/16 1541 PROCEDURE: US VENOUS ARM DUPLEX UNILATERAL, LEFT INDICATIONS: L arm swelling TECHNIQUE: Real-time imaging, as well as color and pulse Doppler interrogation, was performed of the left upper extremity deep veins from the inferior neck to the antecubital fossa. COMPARISON: None. FINDINGS: The internal jugular vein is patent. The subclavian vein is occluded throughout its entirety. Visualized portions of the cephalic vein are occluded. 4 brachial veins are visualized, 3 of which are occluded and, one of which is partially patent. The basilic vein is not visualized. The axillary vein is occluded. IMPRESSION: 1. Extensive deep vein thrombosis of the left upper extremity as described above. These findings were discussed with Genoveva Jacob RN at 4:50 PM by the medical assistant dermatology. Dictated by: Lynnette Villa M.D. on 10/23/2016 at 17:07 Approved by: Lynnette Villa M.D. on 10/23/2016 at 17:07 Assessment & Plan Patient is a 31 year old female with a history of anxiety and Crohn's disease s/ p total proctocolectomy with end ileostomy who presents to the ED with a one week of watery diarrhea in her ileostomy bag, mild hematochezia, and abdominal pain. Tested positive for norovirus. Acute norovirus gastroenteritis - resolving. - Pt reports 1 week of nausea/vomiting/diarrhea, and abdominal pain after contact with 2 children with similar symptoms. Stool PCR was positive for norovirus. Continue supportive treatment - Supportive treatment - Consider repeat stool PCR in 1-2 weeks. Viral shedding continues for 2 weeks after onset of symptoms. Microcytic anemia, acute. Stable. - Pt presented declining Hb, which has now stabilized. MCV was 79.2, likely iron deficiency anemia secondary to GI blood loss. If she continues to drop in Hb, will discuss endoscopy. - Trend H&H regularly - Transfuse if necessary. - Iron sulfate daily 50 mg PO - Continue to monitor for signs of overt bleeding Possible acute GI bleed. Stable. - Pt reports hematochezia over the past week. She reported dark stool, but today reports her stool is normal color. H&H has stabilized, but she is now on Lovenox for L arm DVT. - Continue to monitor for signs of overt bleeding Pulmonary embolism 2/2 left arm DVT - CT angio showed bilat pulm emboli. US showed large left subclavian DVT. Likely secondary to recent left arm PICC line combined with her hypercoagulable state from Crohn's. Long-term, Coumadin might not be the best approach if there is a question as to her ability to absorb this medication. Fondaparinux or similar medications may be a reasonable alternative. - Continue heparin gtt. Monitor for signs of GI bleed. - May undergo catheter-directed thrombolytics procedure today. History of Crohn's Disease - Currently on Humira and Prednisone. She is s/p total proctocolectomy with end ileostomy and has a history of stomal strictures - Hold Humira for now until left subclavian DVT and PE adequately treated. May resume in next 1-2 days depending on results of procedure today. - Continue to taper prednisone - Will hold off on dilation of stoma for now. VTE Mechanical Devices: Intermittant Pneumatic CD Resuscitation Status: CPR: Attempt Resuscitation Attending Statement Patient seen and examined. Agree with assessment and plan as described by Dr Machado. Patient had a discussion with Dr Bonds this morning. In that overnight she has had remarkable improvement in left arm swelling, she has elected to defer catheter directed thrombolytic therapy for the extensive left subclavian DVT. Seems to be tolerating the IV Heparin. No allergic reactions. No bleeding. Stools remain brown and appropriate consistency. Eating better. If continues to improve, would be inclined to get the 40mg dose of Humira administered as it is slightly overdue at this point. Shmuel Machado Oct 27, 2016 11:29 Kirby Valdez MD Oct 27, 2016 22:00
[2016-10-27] MEDS ORDERED: predniSONE 20 mg Tablet PO ONE ×2 (11:40→14:35)
--- NOTE | 2016-10-27 14:57 | NUR ---
NUTRITION FOLLOW-UP: Assess: 31 YO F w/ Crohn's admitted for dehydration d/t persistently high output from ileostomy and new leukocytosis. Pt w/ recent admission during which she required TPN 09/2016. Pt states that since her previous admission she has not been able to put on any wt and food seems to go right through her. She has been drinking extra fluids to try to stay hydrated. Pt is living with her mother who has been recently making smoothies for pt and states that she tolerates them well. Over the course of 1 yrs pt went from 120 lbs to 85 lbs. Pt is on a general diet with good PO at 50-100%. Pt's wt since admit has increased 7.6 kg, but this may be related to fluids. PMHx: SBO, Malnutrition, Crohns, Ileostomy, Perirectal fistula, Iron deficiency, Coagulation disorder, Ileal pancolitis, Abdominal protocolectomy, Tympanostomy, Low grade TETO. LABS: Reviewed. Na 129, Cr 0.52, Glu 120, Ca 6.8, Alb 1.1 MEDICATIONS: Reviewed. DIET: General, PO 50-100% GI symptoms/stool: BM x 2 (10/22) SKIN: No issues noted. ANTHROPOMETRICS: Current Wt: 46.2 kg, BMI: 16.9 kg/m2 = underweight, Admit Wt: 38.6 kg, IBW: 56.8 kg, Recent wt changes: Wt loss (35 lbs x1 yrs = 29%, significant) ESTIMATED NEEDS: Malnutrition (based off admit wt) Calories: 8885-0113 kcal/day (35-40 kcal/kg BW) Protein: 68-85 g/day (1.2-1.5 g/kg IBW) Fluids: 5773-8748 ml/day (1 ml/kcal/d) NUTRITION DIAGNOSIS: 1) Severe malnutrition related to GI abnormalities as evidenced by BMI of 14.2 kg/m2, loss of LBM, and 29% wt loss x1 yr.--PERSISTS INTERVENTION: 1) As pt has a history of not being able to maintain an appropriate BW via oral nutrition and likely is not able to absorb nutrients due to altered GI function, strongly recommend TPN be considered to help optimize pt's nutrition status. 2) Recommend TPN to start at ~45% kcal and pro needs. Recommend 110 g Dex, 25 g AA and 20 g lipids to provide 675 kcal and 25 g pro. Will monitor labs closely for signs of re-feeding. 3) Once tolerance has been established, recommend slowly advance to goal TPN of 200 g Dex, 65 g AA and 45 g lipids to provide 1390 kcal and 65 g pro (100% estimated needs). 4) Goal TPN meets lower range of estimated needs. If PO intake is minimal, recommend increase TPN to better meet kcal needs. 5) Will continue to send Ensure CL per pt preference 6) High calorie/protein recipe book provided this admit and last admit 7) Daily wt requested. Will continue to monitor wt closely MONITOR/EVALUATE: PO intake, Nutrition support, GI, Wt, Nutrition status, POC. Follow per high nutrition risk guidelines. Addendum: 10/28/16 at [address] Spoke with pt about high kcal nutrition supplement to try at home called [employer]ish. Edmundo provides 580kcal/serving (8oz). Pt reported that she would give the shake a try. Encourage pt to continue with small frequent meals and trying to get high kcal/pro foods.
--- NOTE | 2016-10-27 17:45 | PCM.PNMED ---
Subjective Date of Service Oct 27, 2016 Subjective Patient is a 31 year old female with a history of anxiety and Crohn's disease s/ p total proctocolectomy with end ileostomy who is admitted for treatment of one week of watery diarrhea in her ileostomy bag, mild hematochezia, and abdominal pain, DVT right arm associated with PICC line, noro virus. Overnight: Nursing reported no events Today: Patient sated that she is doing better, diarrhea has improved, but abdominal pain is still present. She sated that she has some concerns with the procedure to remove the clot in her arm and is worried that it will dislodge more clots to her lungs. Patient denies worsening shortness of breath, headache , change in vision, nausea, vomiting, fever, chills. ROS negative except for mentioned above. Exam Vital Signs Vital Sign - Last Date Time Temp Pulse Resp B/P Pulse Ox O2 Delivery O2 Flow Rate FiO2 10/27/16 04:03 36.3 90 16 110/81 100 Room Air Intake and Output 10/26/16 10/26/16 10/27/16 Cumulative From/Thru 15:00 23:00 07:00 10/21/16 14:55 - 10/27/16 06:06 Intake Total 872 ml 800 ml 494 ml 08688 ml Output Total 350 ml 900 ml 302 ml 8037 ml Balance 522 ml -100 ml 192 ml 7566 ml Intake Oral 872 ml 800 ml 300 ml 5778 ml IV Total 194 ml 9825 ml Output Urine Total 350 ml 600 ml 2 ml 6477 ml Stool Total 300 ml 300 ml 600 ml Other 0 ml 960 ml # Voids 1 3 # Bowel Movements 2 Exam General: Alert, Oriented X3, Cooperative, No Acute Distress Head: Normocephalic, atraumatic. External ears normal. Cheeks swollen bilaterally, R>L. Eyes: PERRLA, EOMI. Anicteric sclerae. Mouth: Mouth Normal, Mucous Membranes Moist/[place] Neck: Neck supple with full range of motion. Chest & Lungs: Clear to auscultation bilaterally with no crackles, wheezes, or rhonchi. Cardiovascular: Regular Rate/Rhythm, Normal S1, Normal S2, Systolic murmur heard; apparently chronic. Abdomen: Minimal diffuse tenderness, Ileostomy bag in place, Non-distended, No masses, Normoactive bowel tones, Soft Musculoskeletal: Normal Range of Motion. Left arm swelling. Extremities: Mild bilateral lower extremity edema Neurological: Grossly Neurologically Intact, Normal Speech IVs and Medications Medications Reviewed: Medications were reviewed in detail Lab and Diagnostics Result Diagram: 10/27/1623410/27/16234 X-Rays, CTs and MRIs US VENOUS ARM DUPLEX UNILATERAL, LEFT IMPRESSION: 1. Extensive deep vein thrombosis of the left upper extremity as described above. These findings were discussed with Genoveva Jacob RN at 4:50 PM by the course developer. Dictated by: Lynnette Villa M.D. on 10/23/2016 at 17:07 Approved by: Lynnette Villa M.D. on 10/23/2016 at 17:07 Assessment & Plan Patient is a 31 year old female with a history of anxiety and Crohn's disease s/ p total proctocolectomy with end ileostomy who presents to the ED with a one week of watery diarrhea in her ileostomy bag, mild hematochezia, and abdominal pain. Tested positive for norovirus. 1. Acute norovirus gastroenteritis resolving - Patient is gastroenteritis is resolving. The patient's stools are now more well formed and less watery. - Continue supportive treatment antiemetics, pain control - Discontinue IV fluids - Consider repeat stool PCR in 1-2 weeks. Viral shedding continues for 2 weeks after onset of symptoms. 2.Microcytic anemia, acute. Stable. - Pt presented with Hb 11.8, which dropped to 8.6 , then to 7.6. Now improved to 8.5 spontaneously. MCV was 79.2, likely iron deficiency anemia secondary to GI blood loss. If she continues to drop in Hb. - H&H is still tenuous patient H&H this morning was 7.9/25.5, yesterday afternoon it was 8.2/26.7 - Trend H&H regularly - Transfuse if necessary. - Start Iron sulfate drops daily 50 mg by mouth - Continue to monitor for signs of overt bleeding 3.Left arm DVT - Pt complains of L arm swelling, recent history of PICC line placement in left arm. Left arm duplex read: The subclavian vein is occluded throughout its entirety. Visualized portions of the cephalic vein are occluded. 4 brachial veins are visualized, 3 of which are occluded and, one of which is partially patent. The basilic vein is not visualized. The axillary vein is occluded. - Lovenox 40 mg SQ BID. Monitor for signs of GI bleed. -- Possible interventional radiology to address the clot in the left arm, Patient declined IR treatment and understands risk and would like to opt for medical management, discussed need for continued anticoagulation. - Patient will likely benefit most from Eliquis or other NOAC medications due her malabsorptive state medications such as Coumadin will be extremely difficult to reach a steady state therapeutic level. 4.Hypocalcemia-resolving - Patient's calcium is currently 7.1 it has been as low as 6.4. Is currently trending upwards - Continue calcium carbonate 500 mg 3 times a day with meals 5.Lower extremity pain bilaterally most likely secondary to edema -Ultrasound Doppler of the lower extremities are negative -Patient encouraged to ambulate and to sit up in a chair daily and to use SCDs while lying in bed. -If patient's lower extremity edema does not decrease with these conservative measures will consider using a one-time dose of Lasix. The patient's current multiple conditions will try to relieve the edema conservatively. 6.Possible acute GI bleed. Stable. - Pt reports hematochezia over the past week. She reported dark stool, but today reports her stool is normal color. H&H has stabilizing, but she is now on Lovenox for L arm DVT. - Continue to monitor for signs of overt bleeding 7.History of Crohn's Disease - Currently on Humira and Prednisone. She is s/p total proctocolectomy with end ileostomy and has a history of stomal strictures - Continue Humira and Prednisone. - Decrease prednisone to 30 mg daily and taper down. - Will hold off on dilation of stoma for now. Disposition: Patient will likley need 24-48 hours to discontinue Heparin drip and start NOAC and be monitored to drug safety. Encouraged patient to ambulate and use SCDs while lying down. VTE Mechanical Devices: Intermittant Pneumatic CD Resuscitation Status: CPR: Attempt Resuscitation Attending Statement The patient was seen and examined together with Dr. Jauregui on 10/27/2016 and I agree with the history, exam and plan as outlined in the note above. . HU JAUREGUI DO Oct 27, 2016 07:43 Srinivas Abbott MD Oct 30, 2016 07:53 - Decrease prednisone to 30 mg daily and taper down. - Will hold off on dilation of stoma for now. Disposition: Patient Crohn's flare seems to be resolving as well as the GI bleed. Now currently managing the patient's DVT with bilateral PEs. Dr. Valdez stated that he will contact interventional radiology to discuss possible management of the blood clots. Patient has been encouraged to sit up in chair and continue to walk as tolerated in order to decrease her lower extremity edema. Ultrasound of the lower extremities were done to rule out DVT they were negative. Encouraged patient to ambulate and use SCDs while lying down. VTE Mechanical Devices: Intermittant Pneumatic CD Resuscitation Status: CPR: Attempt Resuscitation HU JAUREGUI DO Oct 27, 2016 07:43
[2016-10-27] MEDS: Ondansetron 2 mg/mL 2 mL Inj IVPUSH PRN (18:06)
--- NOTE | 2016-10-27 19:21 | NUR ---
Pain/Nausea Pt. has been having abdominal pain throughout shift and req. dilaudid PRN q4hr. For breakthrough pain Pt. has req. oxycodone x2 this shift. Pt. has right side cheek swelling and made aware. Pt. has c/o of nausea at ~1800 and I gave zofran PRN, Pt. states having slight nausea still.
[2016-10-28 00:32] VITALS: BP 115/72; PULSE 92; RESP 20; O2SAT 98
[2016-10-28] MEDS: Heparin 25K Unit/500mL 0.45 NS 25,000 UNIT in IV Premix 1 EACH IV SCH (00:39)
[2016-10-28 04:28] VITALS: BP 107/73; PULSE 95; RESP 18; O2SAT 100
[2016-10-28 04:32] LABS: Mean Corpuscular Hemoglobin 25.2 pg (27.0-35.0); Mean Corpuscular Volume 81.6 fL (81-100)
[2016-10-28] MEDS: HYDROmorphone 1 mg/mL Inj IVPUSH PRN ×3 (04:41→12:52)
[2016-10-28] MEDS: Ondansetron 2 mg/mL 2 mL Inj IVPUSH PRN ×3 (04:41→12:52)
--- NOTE | 2016-10-28 05:33 | NUR ---
Heparin/Pain Pt currently on Heparin gtt for DVT/PE protocol infusing at 19u/kg/hr, no s/sx of bleeding. Next pTT draw will be at 1000. Pt c/o pain in abdomen that is cramping and sharp and rates pain at 4-7/10. Pt states that her pain is tolerable @ 4 and she has reported pain at 4 x2 this shift. VSS and Tele SR 80-90's and increases with ACT.
[2016-10-28] MEDS ORDERED: predniSONE 20 mg Tablet PO SCH (08:30)
[2016-10-28] MEDS: Ferrous Sulfate 15 mg/mL 50 mL Oral Solution PO SCH (08:40)
[2016-10-28 08:48] VITALS: BP 103/70; PULSE 113; RESP 18; O2SAT 100
[2016-10-28] MEDS ORDERED: Furosemide 10 mg/mL 2 mL Inj IVPUSH ONE (09:15)
[2016-10-28] MEDS ORDERED: DABI75CA3 PO (09:21)
[2016-10-28] MEDS ORDERED: [UNRECOGNIZED DRUG - CODE] SQ (10:47)
[2016-10-28] MEDS ORDERED: ADALIMUMAB 40 MG SUBQ ONE (11:30)
[2016-10-28 12:16] VITALS: BP 106/61; PULSE 99; RESP 18; O2SAT 100
--- NOTE | 2016-10-28 12:43 | PCM.PNMED ---
Subjective Date of Service Oct 28, 2016 Subjective Pt reports some abdominal pain she feels is more of a Crohn's flare, with some nausea. Otherwise she has no more diarrhea or any other complaints. Exam Vital Signs Vital Sign - Last Date Time Temp Pulse Resp B/P Pulse Ox O2 Delivery O2 Flow Rate FiO2 10/28/16 12:16 36.4 99 18 106/61 100 Room Air Intake and Output 10/27/16 10/27/16 10/28/16 Cumulative From/Thru 15:00 23:00 07:00 10/21/16 14:55 - 10/28/16 05:52 Intake Total 600 ml 120 ml 98101 ml Output Total 1470 ml 1800 ml 68816 ml Balance -870 ml -1680 ml 5016 ml Intake Oral 600 ml 120 ml 6498 ml IV Total 9825 ml Output Urine Total 1000 ml 1100 ml 8577 ml Stool Total 470 ml 700 ml 1770 ml Other 960 ml # Voids 3 # Bowel Movements 2 Exam General: Alert, Oriented X3, Cooperative, No Acute Distress Head: Normocephalic, atraumatic. External ears normal. Cheeks swollen bilaterally, R>L. Eyes: PERRLA, EOMI. Anicteric sclerae. Mouth: Mouth Normal, Mucous Membranes Moist/[place] Neck: Neck supple with full range of motion. Chest & Lungs: Clear to auscultation bilaterally with no crackles, wheezes, or rhonchi. Cardiovascular: Regular Rate/Rhythm, Normal S1, Normal S2, Systolic murmur heard; apparently chronic. Abdomen: Minimal diffuse tenderness, Ileostomy bag in place, Non-distended, No masses, Normoactive bowel tones, Soft Musculoskeletal: Normal Range of Motion. Left arm normal. Extremities: Mild bilateral lower extremity edema Neurological: Grossly Neurologically Intact, Normal Speech Lab and Diagnostics Result Diagram: 10/28/16 0350 10/28/16 0350 X-Rays, CTs and MRIs US VENOUS ARM DUPLEX UNILATERAL, LEFT IMPRESSION: 1. Extensive deep vein thrombosis of the left upper extremity as described above. These findings were discussed with Genoveva Jacob RN at 4:50 PM by the education intern. Dictated by: Lynnette Villa M.D. on 10/23/2016 at 17:07 Approved by: Lynnette Villa M.D. on 10/23/2016 at 17:07 Assessment & Plan Patient is a 31 year old female with a history of anxiety and Crohn's disease s/ p total proctocolectomy with end ileostomy who presents to the ED with a one week of watery diarrhea in her ileostomy bag, mild hematochezia, and abdominal pain. Tested positive for norovirus. Acute norovirus gastroenteritis - resolved - Pt reports 1 week of nausea/vomiting/diarrhea, and abdominal pain after contact with 2 children with similar symptoms. Stool PCR was positive for norovirus. Continue supportive treatment - Supportive treatment Microcytic anemia, acute. Stable. - Pt presented declining Hb, which has now stabilized. MCV was 79.2, likely iron deficiency anemia secondary to GI blood loss. If she continues to drop in Hb, will discuss endoscopy. - Trend H&H regularly - Transfuse if necessary. - Iron sulfate daily 50 mg PO - Continue to monitor for signs of overt bleeding Possible acute GI bleed. Stable. - Pt reports hematochezia over the past week. She reported dark stool, but today reports her stool is normal color. H&H has stabilized, but she is now on Lovenox for L arm DVT. - Continue to monitor for signs of overt bleeding Pulmonary embolism 2/2 left arm DVT. Resolving. - CT angio showed bilat pulm emboli. US showed large left subclavian DVT. Likely secondary to recent left arm PICC line combined with her hypercoagulable state from Crohn's. Long-term, Coumadin might not be the best approach if there is a question as to her ability to absorb this medication. Fondaparinux or similar medications may be a reasonable alternative. - Continue heparin gtt. Monitor for signs of GI bleed. - May undergo catheter-directed thrombolytics procedure today. History of Crohn's Disease - Currently on Humira and Prednisone. She is s/p total proctocolectomy with end ileostomy and has a history of stomal strictures - Will give dose of Humira today. - Continue to taper prednisone - Will hold off on dilation of stoma for now. - Pt to follow up with Dr. Valdez in 7-10 days. VTE Mechanical Devices: Intermittant Pneumatic CD Resuscitation Status: CPR: Attempt Resuscitation Attending Statement Patient seen and examined. Agree with assessment and plan as described by Dr Machado. Left arm is much less swollen today. Team is planning for d/c home. Rec'd 25mg pred daily x next 7 days then decreasing 5mg every wk. Patient will take 40mg Humira SQ when she gets home then continue every 2 wks. Patient being d/c'd on fondaparinux over concerns about absorption with oral anticoagulants. Plan to see her in my clinic in the next 7-10 days. At that time can request repeat stool PCR to document clearance of norovirus. Shmuel Machado Oct 28, 2016 12:43 Kirby Valdez MD Oct 28, 2016 22:41
[2016-10-28] MEDS ORDERED: FONDAPARINUX 5 MG/0.4 ML SUBQ SCH (14:15)
[2016-10-28] MEDS ORDERED: DIAZ2TAB PO (14:26)
[2016-10-28] MEDS ORDERED: PRE10 PO (14:26)
[2016-10-28] MEDS ORDERED: FURO-129 PO (14:26)
--- NOTE | 2016-10-28 14:37 | PCM.DIMED ---
Purnima Recio DO 10/28/16 1422: Discharge Instructions Date of Service Oct 28, 2016 Dates of Hospitalization Oct 21, 2016 at 19:32 Discharge Diagnosis Discharge Diagnosis 1. Acute norovirus gastroenteritis resolving 2.Microcytic anemia, acute. Stable. 3.Left arm DVT 4.Hypocalcemia-resolving 5.Lower extremity pain bilaterally most likely secondary to edema 6.Possible acute GI bleed. Stable. 7.History of Crohn's Disease Medication Instructions The pharmacy is ordering your anticoagulant shots. You need to do this once daily. You will get a shot before you leave around ~3 PM. You can give yourself the next shot around then tomorrow. You were also given Valium instead of Lorazepam. Do not combine the two. You were given a few pills of Lasix to help with the swelling. You were given a lower dose of steroids. Please follow up with Dr. Valdez to taper them further. Activity Limited until seen by PCP Call your provider Fever or Chills, Bleeding Patient Instructions Please follow up with PCP in two weeks Please follow up with Dr. Valdez in one week. Srinivas Abbott MD 10/30/16 0751: Discharge Instructions Attending's Statement The patient was seen and examined together with Dr. Recio on 10/28/2016 and I agree with the history, exam and plan as outlined in the note above. . Purnima Recio DO Oct 28, 2016 14:22 Srinivas Abbott MD Oct 30, 2016 07:51
[2016-10-28] MEDS ORDERED: OXYC15TA45 PO (15:22)
--- NOTE | 2016-10-28 15:22 | NUR ---
Social Work Note: Discharge Data& Assessment: EMR reviewed. Per pt is medically ready to discharge home via POV. LEO met with pt at bedside to assess for any unmet needs and inquire about pt preferred pharmacy. Pt preferred pharmacy is [facility]. Per MD request, LEO faxed anticoagulant prescription to the pharmacy. LEO confirmed with Apple at [facility] that pt would not have a co-pay for the injections but they would need to order them today and be ready for pick up man tomorrow. notified. Pt will receive shot today and her prescription with specific dosage will be ready for pick up man tomorrow 10/29/2016 a the pharmacy. No other discharge needs identified. All updated and agreeable to plan. Plan: Per pt is medically ready to discharge home via POV and pick up man her prescription at [facility] pharmacy tomorrow 10/29/2016. No other discharge needs identified. All updated and agreeable to plan. ASHLYN Lilly
--- NOTE | 2016-10-28 15:28 | NUR ---
Heparin/Discharge Heparin gtt d/c'd this morning. Pt started on Arixtra inj this afternoon. Oxycodone PO and IV dilaudid for pain, pt states oxycodone has worked for her in the past at home, hard copy Rx provided. Pt to d/c this afternoon. D/C teaching completed, pt denies questions. VSS. Adequate UOP and ileostomy output. No s/sx of bleeding present. Addendum: 10/28/16 at 1603 by LAWANDA MICHELLE RN Pt d/c'd home at 1601, ambulated to private vehicle with family, pt opted to walk instead of w/c.
--- NOTE | 2016-10-29 06:30 | PCM.DC.MED ---
Discharge Summary Date of Service Oct 29, 2016 Dates of Hospitalization Date of Hospital Admission Oct 21, 2016 at 19:32 Date of Discharge: Oct 28, 2016 Providers: Admitting Physician: Malachi Wells MD Primary Care Physician: Lasha Prather DO Attending Physician: Malachi Wells MD Diagnosis at Time of Discharge Diagnosis at Time of Discharge 1. Acute norovirus gastroenteritis resolving 2.Microcytic anemia, acute. Stable. 3.Left arm DVT 4.Hypocalcemia-resolving 5.Lower extremity pain bilaterally most likely secondary to edema 6.Possible acute GI bleed. Stable. 7.History of Crohn's Disease Procedures XRay, CTs & MRIs US VENOUS ARM DUPLEX UNILATERAL, LEFT IMPRESSION: 1. Extensive deep vein thrombosis of the left upper extremity as described above. These findings were discussed with Genoveva Jacob RN at 4:50 PM by the steam and gas turbines assembler. Dictated by: Lynnette Villa M.D. on 10/23/2016 at 17:07 Approved by: Lynnette Villa M.D. on 10/23/2016 at 17:07 Brief History Copied from H&P "Patient is a 31 year old female with a history of anxiety and Crohn's disease s /p total proctocolectomy with end ileostomy who presents to the ED with a one week of watery diarrhea in her ileostomy bag, mild hematochezia, and abdominal pain. She reports she had nausea and vomiting about a week ago but this has resolved since then. She denies fevers, chills, dizziness, chest pain, or shortness of breath. She has no other complaints. The patient was hospitalized for 10 days on 09/24/16 with a similar flare-up and was seen in the ED on for dehydration. She states this is similar to her similar Crohn's flares. She reports her nephew and niece had vomiting and diarrhea a little over a week ago. She denies NSAID or Tylenol use. She has no family history of Crohn's or UC , but her mother has celiac disease and her grandfather was diagnosed with colon cancer at age 62. She had an EGD with biopsy and ileoscopy with biopsy and balloon dilatation in Sep 2016, which showed minimal gastropathy, mild reactive esophagitis, terminal ileitis, and severe inflammatory stomal stricturing." . Hospital Course 1. Acute norovirus gastroenteritis, resolving - Patient is gastroenteritis is resolving. The patient's stools are now more well formed and less watery at time of discharge. - Continue supportive treatment of antiemetics, pain control, anti-diarrheals - Discontinue IV fluids at time of discharge - Consider repeat stool PCR in 1-2 weeks. Viral shedding continues for 2 weeks after onset of symptoms. 2.Microcytic anemia, acute. Stable. - Pt presented with Hb 11.8, which dropped to 8.6 , then to 7.6. Now improved to 8.5 spontaneously. MCV was 79.2, likely iron deficiency anemia secondary to GI blood loss. - H&H trended: 10/25 8.0 10/26 7.9 10/27 7.7 10/28 7.8 - No transfusion given - Ferrous sulfate given 15 mg PO QD, continue as outpatient - Start Iron sulfate drops daily 50 mg by mouth - Continue to monitor for signs of overt bleeding 3.Left arm DVT - Pt complained of L arm swelling, recent history of PICC line placement in left arm. Left arm duplex read: The subclavian vein is occluded throughout its entirety. Visualized portions of the cephalic vein are occluded. 4 brachial veins are visualized, 3 of which are occluded and, one of which is partially patent. The axillary vein is occluded. - Lovenox 40 mg SQ BID. Monitor for signs of GI bleed. - Possible interventional radiology to address the clot in the left arm, Patient declined IR treatment and understands risk and would like to opt for medical management, discussed need for continued anticoagulation. - Discussed optimal anticoagulation with GI, due to history of Crohn's disease and bowel resection Sub Q anticoagulation with Fondaparinux was chosen over oral anticoagulation, Continue as out patient for 6 months 4.Hypocalcemia-resolving - Patient's calcium is currently 7.1 it has been as low as 6.4. At time of discharge 7.0 - Continue calcium carbonate 500 mg 3 times a day with meals as outpatient 5.Lower extremity pain bilaterally most likely secondary to edema -Ultrasound Doppler of the lower extremities are negative -Patient encouraged to ambulate and to sit up in a chair daily and to use SCDs while lying in bed. Continue mobilization as outpatient -A one-time dose of Lasix given to treat lower leg edema. Due to multiple comorbidities encourage mobilization and conservative measures before using diuretics to treat edema. 6.Possible acute GI bleed. Stable. - Pt reports hematochezia over the past week. She reported dark stool, but today reports her stool is normal color. H&H has stabilizing, but she is now on Lovenox for L arm DVT. - Continued to monitor for signs of overt bleeding, no signs seen - Recommend repeat stool guaiac as outpatient 7.History of Crohn's Disease - Currently on Humira and Prednisone. She is s/p total proctocolectomy with end ileostomy and has a history of stomal strictures - Continue Humira. As outpatient - Continue Prednisone 20 mg prednisone for one week until next appointment with Gastroenterology - Hold dilation of stoma, re-evaluate need on outpatient basis Exam Vital Signs (Last) Date Time Temp Pulse Resp B/P Pulse Ox O2 Delivery O2 Flow Rate FiO2 10/28/16 12:16 36.4 99 18 106/61 100 Room Air Exam General: Alert, Oriented X3, Cooperative, No Acute Distress Head: Normocephalic, atraumatic. External ears normal. Cheeks swollen bilaterally, R>L. Eyes: PERRLA, EOMI. Anicteric sclerae. Mouth: Mouth Normal, Mucous Membranes Moist/[place] Neck: Neck supple with full range of motion. Chest & Lungs: Clear to auscultation bilaterally with no crackles, wheezes, or rhonchi. Cardiovascular: Regular Rate/Rhythm, Normal S1, Normal S2, Systolic murmur heard; apparently chronic. Abdomen: Minimal diffuse tenderness, Ileostomy bag in place, Non-distended, No masses, Normoactive bowel tones, Soft Musculoskeletal: Normal Range of Motion. Left arm swelling. Extremities: Mild bilateral lower extremity edema Neurological: Grossly Neurologically Intact, Normal Speech Test 10/21/16 15:20 10/21/16 17:22 10/21/16 18:51 10/21/16 19:22 Lipase 10U/L (13-60) Hold Urine Received (Received) Urine Color Yellow (YELLOW) Urine Appearance Clear (CLEAR,HAZY) Urine pH 6.5 (5.0-8.0) Urine Specific [place] 1.010 (1.003-1.035) Urine Protein Negativemg/dL (NEG,TRACE) Urine Glucose (UA) Negativemg/dL (NEGATIVE) Urine Ketones Negativemg/dL (NEGATIVE) Urine Occult Blood Negative (NEGATIVE) Urine Nitrite Negative (NEGATIVE) Urine Bilirubin Negative (NEGATIVE) Urine Urobilinogen Normalmg/dL (NORMAL) Urine Leukocyte Esterase Small (NEGATIVE) Urine RBC 0-2/hpf (0-2) Urine WBC 0-5/hpf (0-5) Urine Epithelial Cells None/hpf (NONE-MOD) Urine Crystals None seen (NONE SEEN) Urine Bacteria None/hpf (NONE-FEW) Urine Hyaline Casts None/lpf (NONE) Urine Granular Casts None seen (NONE SEEN) Urine Waxy Casts None seen (NONE SEEN) Urine Red Blood Cell Casts None seen (NONE SEEN) Urine White Blood Cell Casts None seen (NONE SEEN) Urine Mucus None seen (None Seen) Urine Trichomonas None seen (NONE SEEN) Urine Yeast None (NONE SEEN) Urinalysis Comment Reggie carbonate lisa Urine Culture Reflexed Indicated Lactic Acid Level 2.6mmol/L (0.4-2.0) Test 10/23/16 06:04 10/27/16 02:35 10/28/16 03:50 10/28/16 11:28 Neutrophils (%) (Auto) 67.5% (40-74) Lymphocytes (%) (Auto) 25.2% (14-46) Monocytes (%) (Auto) 6.7% (4-12) Eosinophils (%) (Auto) 0.1% (0-5) Basophils (%) (Auto) 0.1% (0-3) Phosphorus Level 2.7mg/dL (2.5-4.9) Magnesium Level 1.6mg/dL (1.6-2.6) Prothrombin Time 11.8sec (8.1-12.5) Prothromb Time International Ratio 1.10ratio Total Bilirubin 0.2mg/dL (0.0-1.2) Aspartate Amino Transf (AST/SGOT) 13U/L (0-50) Alanine Aminotransferase (ALT/SGPT) 11U/L (0-32) Alkaline Phosphatase 65U/L (25-150) Total Protein 3.7g/dL (6.4-8.4) Albumin 1.1g/dL (3.4-5.0) White Blood Count 6.5th/mm3 (3.8-10.1) Red Blood Count 3.09mil/mm3 (3.90-5.20) Hemoglobin 7.8g/dL (12.0-15.6) Hematocrit 25.2% (35.0-46.0) Mean Corpuscular Volume 81.6fL (81-100) Mean Corpuscular Hemoglobin 25.2pg (27.0-35.0) Mean Corpuscular Hemoglobin Concent 31.0% (32.0-37.0) Red Cell Distribution Width 20.6% (12.3-15.4) Platelet Count 272bil/L (150-400) Sodium Level 136mEq/L (134-144) Potassium Level 4.6mEq/L (3.5-5.2) Chloride Level 103mEq/L (97-108) Carbon Dioxide Level 25mmol/L (18-29) Blood Urea Nitrogen 15mg/dL (6-20) Creatinine 0.41mg/dL (0.57-1.00) Estimat Glomerular Filtration Rate 259mL/min (>59) Glucose Level 119mg/dL (60-99) Calcium Level 7.0mg/dL (8.5-10.1) Activated Partial Thromboplast Time 30.8sec (22.8-33.0) Discharge Medications Discharge Medications Adalimumab (Humira Crohn's) 40 Mg/0.8 Ml Pen.ij.kit 40 MG SQ ONCE Prescribed by: LASHA PRATHER DO Dicyclomine (Bentyl) 10 Mg Capsule 10 MG PO QID Prescribed by: LASHA PRATHER DO Fondaparinux Sodium (Fondaparinux Sodium) 5 Mg/0.4 Ml Syringe 5 MG SQ DAILY Prescribed by: HU MONSON DO Furosemide (Lasix) 20 Mg Tablet 20 MG PO DAILY Prescribed by: WING FERRARA DO Prednisone (PredniSONE) 10 Mg Tablet 25 MG PO DAILY Prescribed by: WING FERRARA DO As needed Diazepam (Valium) 2 Mg Tablet 2 MG PO TID PRN PRN For Anxiety Prescribed by: WING FERRARA DO Oxycodone (Roxicodone) 15 Mg Tablet 15 MG PO Q6H PRN PRN For Pain Prescribed by: WING FERRARA DO Promethazine (Promethazine) 12.5 Mg Tablet 6.25 MG PO PRN For Nausea (Reported) Additional med instructions The pharmacy is ordering your anticoagulant shots. You need to do this once daily. You will get a shot before you leave around ~3 PM. You can give yourself the next shot around then tomorrow. You were also given Valium instead of Lorazepam. Do not combine the two. You were given a few pills of Lasix to help with the swelling. You were given a lower dose of steroids. Please follow up with Dr. Valdez to taper them further. Followup Plan Disposition: Home Follow-up plan Follow up with PCP and Dr. Valdez in one week. The pharmacy is ordering your anticoagulant shots. You need to do this once daily. You will get a shot before you leave around ~3 PM. You can give yourself the next shot around then tomorrow. You were also given Valium instead of Lorazepam. Do not combine the two. You were given a few pills of Lasix to help with the swelling. You were given a lower dose of steroids. Please follow up with Dr. Valdez to taper them further. Discharge Activity: Limited until seen by PCP Patient Instructions Please follow up with PCP in two weeks Please follow up with Dr. Valdez in one week. Follow-up with PCP in: 1 week Time spent Greater than 30 minutes was spent in preparation of discharge with greater than 50% of that time dedicated to patient counseling and coordination of care. . Attending Statement The patient was seen and examined together with Dr. Mnoson on 10/28/2016 and I agree with the history, exam and plan as outlined in the note above. . copies to: LASHA PRATHER AARON J DO Oct 29, 2016 06:30 Srinivas Abbott MD Oct 30, 2016 07:53
[2016-10-29] MEDS ORDERED: FONDAPARINUX 5 MG/0.4 ML SUBQ SCH (08:30)
== END 2016-10-28 16:01 | disposition home or self-care (01) | DRG 391 ==
LOC: SED 14:46 → MOC 19:32 → OBSVTOIN 19:32 → OSC 10-24 21:55 → PCC 10-26 17:42
PROVIDERS: ADMIT Urology; ATTEND Urology
DX: A08.11 Acute gastroenteropathy due to Norwalk agent (principal); I26.99 Other pulmonary embolism without acute cor pulmonale; K50.019 Crohn's disease of small intestine with unspecified complications; R64 Cachexia; I82.622 Acute embolism and thrombosis of deep veins of left upper extremity; E44.0 Moderate protein-calorie malnutrition; Z68.1 Body mass index [BMI] 19.9 or less, adult; D50.9 Iron deficiency anemia, unspecified; K21.9 Gastro-esophageal reflux disease without esophagitis; F41.9 Anxiety disorder, unspecified; L50.0 Allergic urticaria; M79.661 Pain in right lower leg; M79.662 Pain in left lower leg; E83.51 Hypocalcemia; T47.1X5A Adverse effect of other antacids and anti-gastric-secretion drugs, initial encounter; Y92.230 Patient room in hospital as the place of occurrence of the external cause; Z90.49 Acquired absence of other specified parts of digestive tract; Z79.52 Long term (current) use of systemic steroids

== ENCOUNTER 2016-11-06 10:05 | Inpatient (IN) | payer MEDICARE ==
[2016-11-06] VITALS (10 sets, daily range): BP systolic 80–102; BP diastolic 52–80; PULSE 102–129; RESP 11–14; O2SAT 98–100
[~2016-11-06] VITALS: Ht 165.1 cm; Wt 42.2 kg
--- NOTE | 2016-11-06 01:53 | NUR ---
Pain Pt at 1930 stated she had a pain level of 8/10. Pt given 2mg of morphine IV push. One hour post administration, pt complained of pain level of 7/10. 1mg of Dilaudid administered. Two hours post, pt reported pain level of 8/10. Crap Shooter paged night provider who changed Dilaudid order to up to 1-2mg q3h. Crap Shooter administered 2mg of Dilaudid. Pt resting in bed. Continue to monitor.
[~2016-11-06 10:05] MED LIST changes: +DIAZ2TAB PO; -DIL4T PO; +FURO-129 PO; -LORA1TAB PO; +OXYC15TA45 PO; -PRE20 PO; -PRED5ORA PO; +PROM12.510 PO; -PROM25SU46 PO; -TRAM50TA2 PO; +[UNRECOGNIZED DRUG - CODE] SQ
--- NOTE | 2016-11-06 10:21 | ED.REPORT ---
HPI-Syncope Date of Service Nov 06, 2016 ED Provider: Rashad Solis MD Patient is a 31 year old female with a history of Crohn's disease and a recently diagnosed PE who presents to the ED via EMS complaining of near syncope onset this morning. Associated symptoms include upper abdominal pain, chest tightness, SOB, lower extremity swelling (onset one week ago), lightheadedness, weakness, vomiting (onset 3 days ago), and thicker than normal liquid stool. She reports that her abdominal pain is worse than her normal Crohn 's pain. She denies LOC, fever, chills, sweats, cough, or any other symptoms. She was diagnosed with a PE about a week ago and was discharged about a week ago. She was started on Lovenox injections and she is on prednisone and Humira. She takes 15 mg oxycodone every 6 hours for her Crohn's pain. Nursing Notes Stated Complaint: ABD PAIN Nursing Notes Reviewed: Yes Allergies: Coded Allergies: Iodinated Contrast Media - Oral and (Verified Allergy, Severe, Shortness of Breath,full body rash/redness, 11/06/16) Scheduled Adalimumab (Humira Crohn's) 40 Mg/0.8 Ml Pen.ij.kit 40 MG SQ ONCE Ascorbate Calcium (Vitamin C) 500 Mg Tablet 500 MG PO DAILY Dicyclomine (Bentyl) 10 Mg Capsule 10 MG PO QID Fondaparinux Sodium (Fondaparinux Sodium) 5 Mg/0.4 Ml Syringe 5 MG SQ DAILY Furosemide (Lasix) 20 Mg Tablet 20 MG PO DAILY Prednisone (PredniSONE) 20 Mg Tablet 20 MG PO DAILY Scheduled PRN Diazepam (Valium) 2 Mg Tablet 1 MG PO TID PRN PRN For Anxiety Oxycodone (Roxicodone) 15 Mg Tablet 15 MG PO Q6H PRN PRN For Pain Promethazine (Promethazine) 12.5 Mg Tablet 6.25 MG PO PRN For Nausea General Time Seen by Provider: 10:15 Chief Complaint [place] faint Hx Obtained From: Patient Arrived By: Ambulance Recent Healthcare: Recent hospitalization Past Medical History Past Medical History Crohn's Disease Anxiety Heart murmur PE Past Surgical History Total proctocolectomy with end ileostomy Family History Noncontributory Smoking History Never Smoker Social History Lives in [place], she is here visiting her mother Alcohol Use: Denies alcohol use Drug Use: Denies drug use Other Social History: Good social support, , Lives with children, Visiting locally Ambulatory Status Independent Review of Systems Constitutional: Reports: Weakness - generalized, Denies: Chills, Fever Respiratory: Reports: Shortness of breath, Denies: Non-productive cough Cardiovascular: Reports: Chest pain GI: Reports: Abdominal pain, Diarrhea (Thicker than normal), Vomiting Musculoskeletal: Reports: Extremity swelling (Lower) Skin: Denies Diaphoresis Neurologic: Reports: Lightheaded, Syncope (Near syncope ), Denies: Change LOC Complete sys rev & neg: except as marked. Physical Exam Initial Vital Signs Vital Signs (First) Date Time Temp Pulse Resp B/P Pulse Ox O2 Delivery O2 Flow Rate FiO2 11/06/16 10:38 35.8 129 14 80/57 99 Room Air 11/06/16 11:29 3 Initial VS: Reviewed Head / Eyes: Atraumatic, Normocephalic Neck: Full range of motion Skin: Warm, Dry Psychiatric: Mood/affect normal, Behavior normal, Normal thought content General/Constitutional: Awake, Alert, Well developed Appearance / Presentation: Positive: Cachectic Hypotensive Cushinoid facies Respiratory / Chest: No respiratory distress Heart Rate / Rhythm: Positive: Tachycardia Lower Ext Edema: Positive: Bilateral 2+ Right Leg / Calf: Positive: Swelling present... Left Leg / Calf: Positive: Swelling present... 2+ bilateral edema ` Neurologic: Oriented X3, Speech NL Interpretation & Diagnostics Lab Results Interpretation Result Diagram: 11/06/16 1215 11/06/16 1215 Test 11/06/16 12:15 11/06/16 12:47 White Blood Count 21.6th/mm3 (3.8-10.1) Red Blood Count 4.56mil/mm3 (3.90-5.20) Hemoglobin 11.5g/dL (12.0-15.6) Hematocrit 35.4% (35.0-46.0) Mean Corpuscular Volume 77.6fL (81-100) Mean Corpuscular Hemoglobin 25.2pg (27.0-35.0) Mean Corpuscular Hemoglobin Concent 32.5% (32.0-37.0) Red Cell Distribution Width 18.6% (12.3-15.4) Platelet Count 192bil/L (150-400) Neutrophils (%) (Auto) 83% (40-74) Lymphocytes (%) (Auto) 6% (14-46) Monocytes (%) (Auto) 4% (4-12) Eosinophils (%) (Auto) 0% (0-5) Basophils (%) (Auto) 0% (0-3) Band Neutrophils % 7% (1-5) Prothrombin Time 14.7sec (8.1-12.5) Prothromb Time International Ratio 1.37ratio Sodium Level 123mEq/L (134-144) Potassium Level 4.0mEq/L (3.5-5.2) Chloride Level 87mEq/L (97-108) Carbon Dioxide Level 23mmol/L (18-29) Blood Urea Nitrogen 23mg/dL (6-20) Creatinine 0.73mg/dL (0.57-1.00) Estimat Glomerular Filtration Rate 133mL/min (>59) Glucose Level 131mg/dL (60-99) Lactic Acid Level 2.0mmol/L (0.4-2.0) Calcium Level 6.6mg/dL (8.5-10.1) Magnesium Level 1.9mg/dL (1.6-2.6) Total Bilirubin 0.3mg/dL (0.0-1.2) Aspartate Amino Transf (AST/SGOT) 17U/L (0-50) Alanine Aminotransferase (ALT/SGPT) 20U/L (0-32) Alkaline Phosphatase 116U/L (25-150) Troponin T 0.010ug/L (0.0-0.011) Total Protein 3.9g/dL (6.4-8.4) Albumin 1.1g/dL (3.4-5.0) Urine Color Dark yellow (YELLOW) Urine Appearance Hazy (CLEAR,HAZY) Urine pH 5.5 (5.0-8.0) Urine Specific [place] 1.025 (1.003-1.035) Urine Protein Negativemg/dL (NEG,TRACE) Urine Glucose (UA) Negativemg/dL (NEGATIVE) Urine Ketones Tracemg/dL (NEGATIVE) Urine Occult Blood Negative (NEGATIVE) Urine Nitrite Negative (NEGATIVE) Urine Bilirubin Negative (NEGATIVE) Urine Urobilinogen Normalmg/dL (NORMAL) Urine Leukocyte Esterase Small (NEGATIVE) Urine RBC 0-2/hpf (0-2) Urine WBC 11-50/hpf (0-5) Urine Epithelial Cells Occasional/hpf (NONE-MOD) Urine Crystals None seen (NONE SEEN) Urine Bacteria Few/hpf (NONE-FEW) Urine Hyaline Casts Occasional/lpf (NONE) Urine Granular Casts None seen (NONE SEEN) Urine Waxy Casts None seen (NONE SEEN) Urine Red Blood Cell Casts None seen (NONE SEEN) Urine White Blood Cell Casts None seen (NONE SEEN) Urine Mucus Present (None Seen) Urine Trichomonas None seen (NONE SEEN) Urine Yeast None (NONE SEEN) Urinalysis Comment None Urine Culture Reflexed Indicated ECG Interpretation ECG Interpretation: sinus tachy rate 121 LAE, consider bilateral enlargement Time: 10:30 Interpreted by: ED physician X-Ray Chest Interpretation Chest Xray Interpretation: IMPRESSION: No acute cardiopulmonary disease. Dictated by: Jimmy TRINIDADA Interpreted: Keeley Bethea MD on 11/06/2016 at 12:09 Transcribed by: LAUREN on 11/06/2016 at 12:09 View: Portable, 1 view Interpretation / Wet Read by: Interpret - Radiologist Chest Xray Interpretation: IMPRESSION: Tip of central venous catheter projects over distal SVC. No pneumothorax. Dictated by: Keeley Bethea MD, PhD on 11/06/2016 at 12:32 Approved by: Keeley Bethea MD, PhD on 11/06/2016 at 12:33 View: Portable, 1 view Interpretation / Wet Read by: Interpret - Radiologist Procedures Central Line Placement Time: 11:47 Procedure Performed by: ED physician Consent / Setup / Site Prep: Informed consent provided, Consent from patient , Time-out performed, Oxygen administered, Pulse oximeter applied, ekg monitor tech applied, Hand hygiene observed, Sterile drapes applied, Position Trendelenburg Skin Preparation Agent: Shurclens Local Anesthesia: Lidocaine 1% Side / Location / Ultrasound: Internal jugular right, Ultrasound assisted Catheter / Lumen / Technique: Triple lumen, Good blood return Central Line Tip Location: Cath tip good position in the SVC Post-Procedure / Complications: Condition improved, Tolerated procedure well , Patient stable Re-Eval/Medical Decision Re-Evaluation/Progress #1: Time of Eval: 11:45 )( Re-Eval Neurologic Exam: Alert Re-Evaluation/Progress Note: Discussed plan for central line. Patient understands and agrees with plan. All questions addressed at this time. Re-Evaluation/Progress #2: Time of Eval: 12:48 )( Re-Eval Neurologic Exam: Alert Re-Evaluation/Progress Note: Rechecked patient. She says her pain is currently an 8/10. Her typical pain is 4/10. She is alert and oriented but her mouth is very dry. Re-Evaluation/Progress #3: Time of Eval: 13:23 )( Re-Eval Neurologic Exam: Alert Re-Evaluation/Progress Note: Rechecked patient. Discussed desire for admission. Patient understands and agrees with plan. All questions addressed at this time. Consultation : Referral / Consult Name: Daryl Aguilar MD Consulted With: Hospitalist Call Returned at: 13:30 Director Strategic Account Management: Will see patient, Agrees with eval, Agrees with plan, Accepts admit Note: Discussed patient's case. Accepts admit Counseled Regarding: Diagnosis, Lab results, Need for admission Discharge & Departure Impression: Primary Impression: Sepsis Additional Impressions: Dehydration Hypocalcemia Crohn's disease Disposition: ADMITTED TO HOSPITAL Referrals: LASHA PRATHER DO (PCP) Crit Care Except Billable Proc Time Spent: 30-74 minutes Scribe Attestation Portions of this note were transcribed by Alexi Chahal. I, Dr. Solis personally performed the history, physical exam and medical decision-making; I reviewed and confirmed the accuracy of the information in the transcribed note. Signed by: Alexi Chahal 11/06/16, 7694 copies to: LASHA PRATHER Kirk H MD Nov 06, 2016 10:21 ALEXI CHAHAL Nov 06, 2016 10:44
[2016-11-06] MEDS ORDERED: 0.9% Sodium Chloride 1,000 ML IV ONE ×2 (10:32→16:10)
--- NOTE | 2016-11-06 12:09 | DRSVH ---
PROCEDURE: X-RAY CHEST ONE VIEW, PORTABLE ([id number]) INDICATIONS: syncope TECHNIQUE: One view of the chest was acquired. COMPARISON: [facility], CR, XR CHEST 1VW (PORTABLE), 10/21/2016, 19:08. FINDINGS: Surgical changes and devices: None. Lungs and pleura: No pleural effusions or pneumothorax. Lungs are clear. Mediastinum: Mediastinal contours appear normal. Heart size is normal. Bones and chest wall: No suspicious bony lesions. Overlying soft tissues appear unremarkable. IMPRESSION: No acute cardiopulmonary disease. Dictated by: Jimmy Eubanks [facility] Interpreted: Keeley Bethea MD on 11/06/2016 at 12:09 Transcribed by: LAUREN on 11/06/2016 at 12:09 Approved by: Keeley Bethea MD, PhD on 11/06/2016 at 16:25
[2016-11-06 12:33] LABS: EOSINOPHILS % (AUTO) 0 % (0-5); Mean Corpuscular Hemoglobin 25.2 pg (27.0-35.0); Mean Corpuscular Volume 77.6 fL (81-100); Platelet Count 192 bil/L (150-400)
--- NOTE | 2016-11-06 12:34 | DRSVH ---
PROCEDURE: X-RAY CHEST ONE VIEW, PORTABLE ([id number]) INDICATIONS: line placement TECHNIQUE: One view of the chest was acquired. COMPARISON: [facility], CR, XR CHEST 1VW (PORTABLE), 11/06/2016, 11:12. FINDINGS: Surgical changes and devices: Central venous catheter is in place infusion next the distal SVC via a right IJ approach. Lungs and pleura: No pleural effusions or pneumothorax. Lungs are clear. Mediastinum: Mediastinal contours appear normal. Heart size is normal. Bones and chest wall: No suspicious bony lesions. Overlying soft tissues appear unremarkable. IMPRESSION: Tip of central venous catheter projects over distal SVC. No pneumothorax. Dictated by: Keeley Bethea MD, PhD on 11/06/2016 at 12:32 Approved by: Keeley Bethea MD, PhD on 11/06/2016 at 12:33
[2016-11-06 12:45] LABS: INR 1.37 ratio
[2016-11-06 12:53] LABS: TROPONIN T 0.01 ug/L (0.0-0.011)
[2016-11-06] MEDS ORDERED: MetoCLOpramide 5 mg/mL 2 mL Inj IVPUSH ONE (12:55)
[2016-11-06 12:57] LABS: APPEARANCE,URINE HAZY (CLEAR,HAZY); COLOR,URINE DARK YELLOW (YELLOW); OCCULT BLOOD,URINE NEGATIVE (NEGATIVE); PH,URINE 5.5 (5.0-8.0); UROBILINOGEN,URINE NORMAL (NORMAL)
[2016-11-06 13:04] LABS: Magnesium 1.9 mg/dL (1.6-2.6)
[2016-11-06] MEDS: fentaNYL-PF 50 mCg/mL 2 mL Inj IVPUSH PRN ×2 (13:18→17:01)
--- NOTE | 2016-11-06 13:18 | DRSVH ---
PROCEDURE: US GUIDE FOR VASCULAR ACCESS INDICATIONS: Cenral line placement rt jug v COMPARISON: None. FINDINGS: Right internal jugular vein was localized sonographically for operative planning. IMPRESSION: Sonographic localization of the right internal jugular vein. Dictated by: Jimmy ESCALANTE Interpreted: Keeley Bethea MD on 11/06/2016 at 13:17 Transcribed by: LAUREN on 11/06/2016 at 13:17 Approved by: Keeley Bethea MD, PhD on 11/06/2016 at 16:25
[2016-11-06 13:19] LABS: BASOPHILS % (AUTO) 0 % (0-3); MONOCYTES % (AUTO) 4 % (4-12); NEUTROPHILS % (AUTO) 83 % (40-74)
[2016-11-06] MEDS ORDERED: Calcium GLUCOnate 10% (Gm) 1 Gm/10 mL Inj IVPUSH PRN (13:20)
[2016-11-06] MEDS ORDERED: cefTRIAXone Inj 1,000 MG in Dextrose 5% Minibag Plus 50 ML IV ONE (13:25)
[2016-11-06] MEDS ORDERED: PRE20 PO (14:06)
[2016-11-06] MEDS ORDERED: DIAZ2TAB PO (14:06)
[2016-11-06] MEDS ORDERED: ASCO-294 PO (14:10)
[2016-11-06] MEDS: 0.9% Sodium Chloride 1,000 ML IV SCH ×2 (14:18→17:01)
--- NOTE | 2016-11-06 14:30 | NUR ---
Admit note Admission and med rec completed in ED room. Pt. and pts. mother present answering questions. Medication bottles with given to pt. mother to go home. Allergies checked, advanced directives booklet given. Pt. declines flu vaccine at this time. Pt. states she originally is from [place], and daughter lives there at this time. Pt. is living here with her mother seeking treatment for crohns disease.
[2016-11-06] MEDS ORDERED: 0.9% Sodium Chloride 1,000 ML IV SCH (15:08)
[2016-11-06] MEDS ORDERED: Alum-Mag Hydrox-Simeth 30 mL Suspension PO PRN (15:10)
[2016-11-06] MEDS ORDERED: Ondansetron 2 mg/mL 2 mL Inj IVPUSH PRN (15:10)
[2016-11-06] MEDS ORDERED: Polyethylene Glycol (PEG) 17 Gm Powder PO PRN (16:05)
--- NOTE | 2016-11-06 16:30 | PCM.HPMED ---
Subjective Date of Service Nov 06, 2016 Primary Provider: Admitting Physician: Daryl Aguilar MD Primary Care Physician: Karissa Vicente DO Attending Physician: Daryl Aguilar MD Admit Status: From the Emergency Department, Full Admit, Admit to Yellow Team, Critical Care Chief Complaint: Hypotension, abdominal pain and weakness History of Present Illness: This is a 31-year-old female who recently relocated to the area. She is staying with her mother. She has a history of Crohn's colitis has been prednisone dependent and had progressive deterioration. She was recently started on Humira. She was in the hospital in September. This is relating to abdominal pain and volume depletion as well as some rectal bleeding. She was discharged and has been doing poorly for the last 10 days. She has had progressive weakness, and has been extremely thirsty. She has been trying to keep up with her fluids by taking Gatorade. She has been having increased abdominal pain above and beyond her baseline pain. She has had about 3 bowel movements a day all loose but free of blood or mucus. No fevers or chills. In the ER she was hypotensive and tachycardiac. She remains tachycardic at 120 and hypotensive at 89 systolic after 2 L of fluid. She denies cough or rhinorrhea fevers or chills. No hematuria or dysuria. She is on chronic prednisone at 25 mg a day Review of Systems: She has chronic swelling of her legs. She had swelling of the left arm PICC associated DVT but this is better. She is on fondaparinux now. She denies recent headache visual changes or problems hearing. She also denies a cough dyspnea or orthopnea. He has been vomiting intermittently for last several days. No hematemesis. No skin rash or lesions. No hematuria or dysuria. Also reviewed and otherwise unremarkable as noted except in the history of present illness. Allergies Coded Allergies: Iodinated Contrast Media - Oral and (Verified Allergy, Severe, Shortness of Breath,full body rash/redness, 11/06/16) Home Medications Adalimumab (Humira Crohn's) 40 Mg/0.8 Ml Pen.ij.kit 40 MG SQ ONCE Ascorbate Calcium (Vitamin C) 500 Mg Tablet 500 MG PO DAILY Dicyclomine (Bentyl) 10 Mg Capsule 10 MG PO QID Fondaparinux Sodium (Fondaparinux Sodium) 5 Mg/0.4 Ml Syringe 5 MG SQ DAILY Furosemide (Lasix) 20 Mg Tablet 20 MG PO DAILY Prednisone (PredniSONE) 20 Mg Tablet 20 MG PO DAILY Scheduled PRN Diazepam (Valium) 2 Mg Tablet 1 MG PO TID PRN PRN For Anxiety Oxycodone (Roxicodone) 15 Mg Tablet 15 MG PO Q6H PRN PRN For Pain Promethazine (Promethazine) 12.5 Mg Tablet 6.25 MG PO PRN For Nausea PMH 1. Crohn's colitis. 2. Chronic steroid dependence. 3. Left arm PICC associated DVT. 4. Remote PE Family History Negative for inflammatory bowel disease Social History Occupation: 9 Hx Alcohol Use: No Hx Substance Use: No Smoking Status: Never Smoker Living Arrangement: with Family Exam Vital Signs Vital Sign - Last Date Time Temp Pulse Resp B/P Pulse Ox O2 Delivery O2 Flow Rate FiO2 11/06/16 15:38 116 11/06/16 15:29 Supplement Oxygen 11/06/16 15:29 36.7 12 89/52 100 2.00 Exam Alert oriented 3, chronically ill. Cachectic. She has catherine facies. Her left normal skull. Femoral nose and ears Anicteric sclerae symmetric pupils Oropharynx is unremarkable. Neck is supple, normal thyroid, no adenopathy. Lungs are clear, normal effort rate. Heart is tachycardic without murmur Abdomen is somewhat distended and tender without guarding or rebound Extremities normal for 1+ edema. Good pedal and radial pulses. Muscles with normal tone. Joints not swollen or deformed Cranial nerves are intact Affect is flat. Lab and Diagnostics Labs Lactic acid 2.0 Result Diagram: 11/06/16 1215 11/06/16 1215 X-Rays, CTs and MRIs Chest x-ray before and after right IJ central line is unremarkable. Assessment & Plan 1. Hypovolemic shock. POA. We will fluid resuscitate her with saline. 2. Possible sepsis, POA. Will follow her lactic acid serially. Will cover her with empiric antibiotics, Zosyn and is a GI source to be the most likely. We will consider imaging her CT scan if she fails to improve his fluid resuscitation. Blood cultures 2. 3. Crohn's colitis, with possible exacerbation. POA. IV steroids, hydrocortisone 100 every 8 hours 4. Probable adrenal insufficiency, POA. Hydrocortisone as outlined above. 5. Severe hypocalcemia, POA. We will replete and follow. Patient is for gestation, admitted inpatient status with an estimated length of stay of over 2 nights. Pain Evaluation: Adequate Pain Control Resuscitation Status: CPR: Attempt Resuscitation Time spent 40 minutes Daryl Aguilar MD Nov 06, 2016 16:30
[2016-11-06] MEDS: Hydrocortisone 50 mg/mL 2 mL Inj IVPUSH SCH (17:40)
[2016-11-06] MEDS: Piperacillin-Tazo 3.375 Gm Inj 3.375 GM in Dextrose 5% Minibag Plus 50 ML IV SCH (17:53)
[2016-11-06 18:03] LABS: Magnesium 1.7 mg/dL (1.6-2.6)
--- NOTE | 2016-11-06 18:57 | NUR ---
Transfer/pain/ skin tear Patient arrived in her room from ED at 1520 today. Patient was awake, oriented and appropriate. She denied having pain at the time. Low SBP in mid-80s with MAP 55-60- MD aware- patient was given 1liter of NS over 1h bolus followed by NS infusion at 125ml/h- SBP 85-95 with MAP 60-65- MD aware- no additional fluid boluses were given at the time. Patient complained of abdominal cramping/pain 5-6/10 later during the shift- she was medicated with fentanyl 50mcg IV x1 and stated pain decreased to 1-2/10- Patient appeared more relaxed and resting. Noted skin tear 1cm by 1cm in diameter on the inner side of the right lower leg above the ankle with clear see-through dressing-no drainage. When asked patient denied having pain to the wound but stated this was from EKG sticker removal earlier in the day in ED- continue monitoring, dressing change PRN.
[2016-11-06] MEDS ORDERED: HYDROmorphone 0.5 mg/0.5 mL iSecure Syringe IVPUSH PRN (21:25)
[2016-11-07] VITALS (7 sets, daily range): BP systolic 96–108; BP diastolic 62–81; PULSE 83–110; RESP 14–23; O2SAT 100
[2016-11-07] MEDS: 0.9% Sodium Chloride 1,000 ML IV SCH ×3 (00:01→16:58)
[2016-11-07] MEDS: Hydrocortisone 50 mg/mL 2 mL Inj IVPUSH SCH ×3 (01:13→16:58)
[2016-11-07] MEDS: Piperacillin-Tazo 3.375 Gm Inj 3.375 GM in Dextrose 5% Minibag Plus 50 ML IV SCH ×3 (01:14→16:10)
[2016-11-07] MEDS: HYDROmorphone 0.5 mg/0.5 mL iSecure Syringe IVPUSH PRN ×6 (01:15→19:52)
[2016-11-07] MEDS: Ondansetron 2 mg/mL 2 mL Inj IVPUSH PRN ×2 (05:53→09:40)
[2016-11-07 06:05] LABS: Mean Corpuscular Hemoglobin 24.6 pg (27.0-35.0); Mean Corpuscular Volume 79.1 fL (81-100)
[2016-11-07] MEDS ORDERED: Calcium GLUCO 10% (Gm) 1 Gm/10 mL 50 mL Inj IV ONE (07:55)
[2016-11-07] MEDS ORDERED: KCl 40 mEq/100 mL (CENTRAL) 40 MEQ in IV Premix 1 EACH IV ONE (07:55)
[2016-11-07] MEDS: Sodium Chloride LOK Flush 10 mL Syringe IVFLUSH PRN ×3 (07:58→16:59)
[2016-11-07] MEDS ORDERED: Calcium GLUCO 10% (Gm) Inj 2 GM in Dextrose 5% 100 ML IV ONE (08:10)
--- NOTE | 2016-11-07 08:59 | PCM.PNMED ---
Subjective Date of Service Nov 07, 2016 Subjective She is feeling somewhat better. Still some nausea. No diarrhea or bowel movement. Some diffuse abdominal pain. No fevers or chills. No chest pain. She does feel some chest heaviness. Exam Vital Signs Vital Sign - Last Date Time Temp Pulse Resp B/P Pulse Ox O2 Delivery O2 Flow Rate FiO2 11/07/16 07:35 Supplement Oxygen 11/07/16 07:35 36.4 87 17 96/62 100 2.00 Intake and Output 11/06/16 11/06/16 11/07/16 Cumulative From/Thru 15:00 23:00 07:00 11/06/16 10:38 - 11/07/16 04:09 Intake Total 2000 ml 1000 ml 400 ml 3400 ml Output Total 320 ml 900 ml 1220 ml Balance 2000 ml 680 ml -500 ml 2180 ml Intake Oral 50 ml 400 ml 450 ml IV Total 2000 ml 950 ml 2950 ml Output Urine Total 320 ml 600 ml 920 ml Stool Total 300 ml 300 ml Exam Cushingoid, catherine facies. Flat affect Alert oriented in no distress Lungs are clear with normal effort Heart is regular without murmur Abdomen is soft nontender Extremities are free of edema good pedal pulses. IVs and Medications Medications Reviewed: Medications were reviewed in detail Lab and Diagnostics Result Diagram: 11/07/16 0530 11/07/16 0530 X-Rays, CTs and MRIs Chest x-ray before and after right IJ central line is unremarkable. Assessment & Plan 1. Hypovolemic shock. POA. She is improved with fluid resuscitation, total 6 L. We will continue fluids at 100. She is still mildly hypotensive and tachycardic. 2. Possible sepsis, POA. She has normal lactic acid. She is improving clinically. No fevers chills. We will check a white blood cell count today. Blood cultures remain negative. Continue empiric Zosyn. 3. Crohn's colitis, with possible exacerbation. POA. IV steroids, hydrocortisone 100 every 8 hours 4. Probable adrenal insufficiency, POA. Hydrocortisone will be continued 5. Severe hypocalcemia, POA. This is persistent, to 4 g of calcium this morning and follow. It. Hypokalemia. Will replete today and follow. Patient is full resuscitation, admitted inpatient status with an estimated length of stay of over 2 nights. Pain Evaluation: Adequate Pain Control Resuscitation Status: CPR: Attempt Resuscitation Daryl Aguilar MD Nov 07, 2016 08:59
[2016-11-07] MEDS ORDERED: Promethazine 25 mg/mL Inj IM PRN (10:20)
--- NOTE | 2016-11-07 11:14 | DRSVH ---
PROCEDURE: X-RAY CHEST ONE VIEW, PORTABLE ([id number]) INDICATIONS: dyspnea TECHNIQUE: One view of the chest was acquired. COMPARISON: None. FINDINGS: Surgical changes and devices: Stable position of right IJ CVL. Lungs and pleura: No pleural effusions or pneumothorax. Lungs are clear. Mediastinum: Mediastinal contours appear normal. Heart size is normal. Bones and chest wall: No suspicious bony lesions. Overlying soft tissues appear unremarkable. IMPRESSION: Stable chest. Of note, there is mild gaseous distention of the stomach as well as bowel loops within the upper abdomen. Clinical correlation and if indicated acute abdominal series could b e performed. Dictated by: Jimmy Eubanks RRA Interpreted: Keeley Bethea MD on 11/07/2016 at 11:13 Transcribed by: LAUREN on 11/07/2016 at 11:14 Approved by: Keeley Bethea MD, PhD on 11/07/2016 at 16:48
[2016-11-07] MEDS: Promethazine 12.5 mg/50 mL D5W IV PRN ×4 (11:34→16:31)
--- NOTE | 2016-11-07 13:36 | NUR ---
Pain/nausea Patient complained of abdominal pain 5-6/10 periodically during the shift. This pain was well relived with Dilaudid 0.5-1mg IV but recurrent and chronic. Patient takes PO oxycodone at home usually for this kind of pain- MD aware. Ileostomy to gravity drain- patient had so far 700ml of light brown/green liquid stool. IV fluids continued: NS at 125ml/h. Patient remained on clear liquid diet. She complained of nausea on/off. Patient was medicated with Zofran 8mf X1 this morning with good but not complete relive of nausea. Consulted with MD-patient received first dose of Phenergan 12.5 mg IV and stated complete relive of nausea symptoms following med administration- continue assessment.
[2016-11-07] MEDS ORDERED: Promethazine 25 mg/mL Inj IV PRN (14:20)
--- NOTE | 2016-11-07 15:00 | NUR ---
NUTRITION ASSESSMENT Assess: 31 yo F w/ sepsis, dehydration, and Crohns. Pt w/ multiple admission recently. Her wt is up since last admission. Pts mom feels the wt loss is mostly fluids. Both mother and daughter state she has not been able to eat much more than bites or sips of food at a time. Pt notes high ileostomy output however not has high as last admission. During her September admission she required TPN. PMHx: Crohns, DVT, Steroid dependence, PE. LABS: Na 132, K 3.4, Cr 0.52, Glu 114, Ca 5.2, Albumin 0.6 MEDICATIONS: Zofran DIET: Clear liquids, PO 75-100% NUTRITION FOCUSED PHYSICAL ASSESSMENT: GI symptoms/stool: 300 ml via ileostomy 2/3 Wilfrido: 14 Skin integrity: No issues noted Overall Appearance: Pt very thin - squaring in shoulders, thinning in arms ANTHROPOMETRICS: Current Wt: 47.3 kg BMI: 17.4 kg/t4Lbyhq Wt: 47.3 kg IBW: 56.8 kgRecent wt changes: Wt loss ESTIMATED NEEDS: Calories: 0353-6291 kcal/d (30-35 kcal/kg/d) Protein: 55-70 g/d (1.2-1.5 g/kg/d) Fluids: 1673-8779 ml/d (1 ml/kcal/d) NUTRITION DIAGNOSIS: 1) Severe malnutrition related to GI abnormalities as evidenced by malabsorption, inability to meet 75% of est needs for 1+ months, BMI <18.5 kg/m2, and loss of LBM and subcutaneous fat. INTERVENTION: 1) Recommend initiating TPN w/ 110 g Dex, 25 g AA and 20 g lipids monitoring closely for refeeding. 2) Once pt tolerating TPN, recommend slowly advancing towards goal of 220 g dextrose, 70 g Amino Acids, and 45 g Lipids to provide 1478 kcal/d and 70 g/d protein, meeting 100% of est needs. MONITOR/EVALUATE: PO intake, TPN start, Labs, Wt, Nutrition status, POC. Will follow per high nutrition risk guidelines.
--- NOTE | 2016-11-07 15:03 | NUR ---
Low K Potassium level this morning was 3.4. Potassium replaced with 40meq IV K-raider over 4h. Potassium rechecked about one hour after K-rider infused was at 4.5; however sodium level dropped to 127. was made aware about the findings- continue NS infusion at current rate of 125ml/h, continue orders, labs in AM.
--- NOTE | 2016-11-07 19:30 | NUR ---
Wound Asked to be seen by nursing for skin tear at right medial ankle. 31 yo female with Crohns disease steroid dependent. 1cm in diameter skin tear is noted. redressed with mepilex foam, can be changed by nursing PRN. No further wound care needs, pt independent in management of her own urostomy.
[2016-11-07] MEDS: Alum-Mag Hydrox-Simeth 30 mL Suspension PO PRN (21:57)
[2016-11-08] VITALS (11 sets, daily range): BP systolic 99–110; BP diastolic 67–79; PULSE 82–123; RESP 11–21; O2SAT 95–100
[2016-11-08] MEDS: HYDROmorphone 0.5 mg/0.5 mL iSecure Syringe IVPUSH PRN ×6 (00:10→20:54)
[2016-11-08] MEDS: Hydrocortisone 50 mg/mL 2 mL Inj IVPUSH SCH ×3 (00:10→16:06)
[2016-11-08] MEDS: Piperacillin-Tazo 3.375 Gm Inj 3.375 GM in Dextrose 5% Minibag Plus 50 ML IV SCH ×2 (00:11→07:37)
[2016-11-08] MEDS: 0.9% Sodium Chloride 1,000 ML IV SCH ×3 (00:11→16:06)
--- NOTE | 2016-11-08 05:29 | NUR ---
I/O Pt's input for the entire shift is 636ml PO and 1538ml IV for a total of 2174ml input. Pt's output for the entire shift is 50ml rodriguez catheter and 300ml liquid stool via ileostomy for a total of 350ml output. Pt's last BP was 110/79 with [place] 118. Pt's bilateral LLE edema has increased and pt's lung bases now have audible prolonged crackles where prior the lung bases sounded clear. Pt was bladder scanned with a reading of >23ml. Pt is not c/o SOB at this time. Pt is on 4.5L NC with SpO2 100%. has been paged and made aware.
[2016-11-08] MEDS: Sodium Chloride LOK Flush 10 mL Syringe IVFLUSH PRN (07:55)
[2016-11-08 10:33] LABS: Mean Corpuscular Hemoglobin 25.1 pg (27.0-35.0); Mean Corpuscular Volume 80.7 fL (81-100)
[2016-11-08] MEDS: Ondansetron 2 mg/mL 2 mL Inj IVPUSH PRN (11:17)
--- NOTE | 2016-11-08 12:00 | PCM.PNMED ---
Subjective Date of Service Nov 08, 2016 Subjective She still feels fatigued. No cough or dyspnea. No chest pain. Minimal abdominal pain she has the usual amount of output in her ostomy free of blood or mucus. Some leg swelling. Exam Vital Signs Vital Sign - Last Date Time Temp Pulse Resp B/P Pulse Ox O2 Delivery O2 Flow Rate FiO2 11/08/16 10:17 123 11/08/16 07:36 100 Nasal Cannula 3.00 11/08/16 07:32 36.4 12 103/70 Intake and Output 11/07/16 11/07/16 11/08/16 Cumulative From/Thru 15:00 23:00 07:00 11/06/16 10:38 - 11/08/16 05:50 Intake Total 1706 ml 2767 ml 2174 ml 87009 ml Output Total 1150 ml 350 ml 2720 ml Balance 1706 ml 1617 ml 1824 ml 7327 ml Intake Oral 1150 ml 636 ml 2236 ml IV Total 1706 ml 1617 ml 1538 ml 7811 ml Output Urine Total 450 ml 50 ml 1420 ml Stool Total 700 ml 300 ml 1300 ml Exam [place] 3, no distress Anicteric sclerae back Lungs are clear with normal effort and rate Heart is regular without murmur or gallop. Abdomen is soft nontender, ostomy. Extremities with 1+ edema Skin is pale IVs and Medications Medications Reviewed: Medications were reviewed in detail Lab and Diagnostics Result Diagram: 11/08/16 1020 11/08/16 1020 X-Rays, CTs and MRIs Chest x-ray before and after right IJ central line is unremarkable. Assessment & Plan 1. Hypovolemic shock. POA. This is resolved with fluid resuscitation. 2. Possible sepsis, POA. This is improved and no clear focus of infection has been found. Discontinue Zosyn. 3. Probable adrenal insufficiency, POA. Hydrocortisone will be continued 4. Severe hypocalcemia, POA. This is persistent, to 4 g of calcium this morning and follow. Today's calcium is low but corrects with albumin to the normal range. No further treatment. 5. Hypokalemia. We will follow this daily. 6. Severe protein caloric malnutrition. POA. We will continue to discussion whether or not TPN should be reinstituted. We will discuss with gastroenterology over the weekend. 7. Left arm DVT, PICC associated. POA. Continue fondaparinux Patient is full resuscitation, admitted inpatient status with an estimated length of stay of over 2 nights. Resuscitation Status: CPR: Attempt Resuscitation Time spent 30 minutes Daryl Aguilar MD Nov 08, 2016 12:00
--- NOTE | 2016-11-08 12:07 | NUR ---
PUBLIC AID ELIGIBILITY ASSISTANT witnessed [facility]'s signature CHELSI NelsonSW
--- NOTE | 2016-11-08 12:09 | NUR ---
Social Work: Initial Assessment Data: Pt is a 31 y/o female admitted for dehydration/sepsis. Pt's PCP is Dr Vicente, pt's insurance is Medicare. Pt readmit score is 3. EMR reviewed, See attached CM initial assessment. CONTINUOUS IMPROVEMENT SPECIALIST met with pt at bedside, role explained. Pt states that she lives with her mother on [address] where there are a few steps to enter. Pt uses no DME and estrada no SNF history. Pt has history with but is unsure of the company. Pt states that she does not have a DPOA and declined information, CONTINUOUS IMPROVEMENT SPECIALIST provided paperwork. Pt reports not LTC or VA benefits and is not a caregiver for another. Pt states her mom can give her a ride home at d/c. CONTINUOUS IMPROVEMENT SPECIALIST will continue to follow for possible needs at d/c. Assessment: Pt who is independent at baseline. Plan: Pt will d/c home via POV when medically stable. CONTINUOUS IMPROVEMENT SPECIALIST will continue to follow for possible d/c needs. KEM Nelson Addendum: 11/08/16 at 1212 by DIANA MATA SS Amended: Links added.
--- NOTE | 2016-11-08 18:37 | NUR ---
LE edema/O2 needs Pt reporting LE continue to increase in size, Pt had low UOP on NOC shift per shift report, Pt denied increase in SOB, breath sounds clear, MD already aware, no order changes at this time. Pt on 4.5L O2 via nasal cannula at beginning of shift with SPO2 sats 99/100%, Pt titrated down to 3L and then O2 removed later in shift, Pt's SPO2 sats remained in the upper 90s-100% on RA, Pt denied an increase in SOB after O2 removed.
[2016-11-09] VITALS (9 sets, daily range): BP systolic 105–113; BP diastolic 72–83; PULSE 82–125; RESP 10–22; O2SAT 100
[2016-11-09] MEDS: 0.9% Sodium Chloride 1,000 ML IV SCH ×2 (00:06→07:32)
[2016-11-09] MEDS: Hydrocortisone 50 mg/mL 2 mL Inj IVPUSH SCH ×4 (00:06→22:55)
[2016-11-09] MEDS: HYDROmorphone 0.5 mg/0.5 mL iSecure Syringe IVPUSH PRN ×7 (00:07→22:55)
[2016-11-09] MEDS ORDERED: LORazepam 0.5 mg Tablet PO ONE (06:20)
--- NOTE | 2016-11-09 07:24 | NUR ---
Edema with Weeping Pt's edema increased throughout the night and is now generalized pitting edema with multiple sites that are weeping. Pt had gauze dressing over the weeping sites but the dressings were needing to be changed hourly. Pt's mepilex dressing on the skin tear had to be changed as well since it too was saturated with serous fluid. Pt also has chux pads surrounding weeping skin to soak up the fluids.
[2016-11-09] MEDS ORDERED: Furosemide 10 mg/mL 4 mL Inj IVPUSH ONE (07:55)
[2016-11-09] MEDS: Sodium Chloride LOK Flush 10 mL Syringe IVFLUSH PRN (09:12)
[2016-11-09 10:06] LABS: Mean Corpuscular Hemoglobin 24.9 pg (27.0-35.0)
--- NOTE | 2016-11-09 10:11 | NUR ---
Evaluation completed. Please go to "Notes" then click on "Assessments and Notes" (bottom left corner of screen). Then select appropriate discipline tab on top of screen.
[2016-11-09 11:12] LABS: Mean Corpuscular Volume 81.3 fL (81-100)
[2016-11-09] MEDS: Ondansetron 2 mg/mL 2 mL Inj IVPUSH PRN (13:04)
--- NOTE | 2016-11-09 13:14 | PCM.PNMED ---
Subjective Date of Service Nov 09, 2016 Subjective She is having a lot of swelling into her skin. Her abdomen hurts but no more than usual. Her ostomy output is about the same. She has anorexia. Denies any cough or shortness of breath. No problems with urination. Talk about the possibility of a transient feeding tube through the nose so that we can provide tube feeds at home for a period time and she is agreeable to attempting placement of a Dobbhoff. Exam Vital Signs Vital Sign - Last Date Time Temp Pulse Resp B/P Pulse Ox O2 Delivery O2 Flow Rate FiO2 11/09/16 12:37 36.5 113 15 105/73 100 Room Air 11/08/16 12:16 3.00 Intake and Output 11/08/16 11/08/16 11/09/16 Cumulative From/Thru 15:00 23:00 07:00 11/06/16 10:38 - 11/09/16 05:07 Intake Total 3322 ml 400 ml 16407 ml Output Total 400 ml 150 ml 3270 ml Balance 2922 ml 250 ml 78427 ml Intake Oral 1680 ml 400 ml 4316 ml IV Total 1642 ml 9453 ml Output Urine Total 200 ml 150 ml 1770 ml Stool Total 200 ml 1500 ml Exam Neuro oriented 3, cushingoid, chronically ill. Fluent speech, no distress Lungs are clear with normal effort. Heart is regular without murmur gallop or rub Abdomen soft nontender. Extremities a 2+ edema. IVs and Medications Medications Reviewed: Medications were reviewed in detail Lab and Diagnostics Result Diagram: 11/09/16 1045 11/09/16 0920 X-Rays, CTs and MRIs Chest x-ray before and after right IJ central line is unremarkable. Assessment & Plan 1. Hypovolemic shock. POA. This is resolved with fluid resuscitation. 2. Possible sepsis, POA. This is improved and no clear focus of infection has been found. Discontinue Zosyn. 3. Probable adrenal insufficiency, POA. Hydrocortisone will be continued 4. Severe hypocalcemia, POA. This is persistent, to 4 g of calcium this morning and follow. Today's calcium is low but corrects with albumin to the normal range. No further treatment. We will followed by labs. 5. Hypokalemia. We will follow this daily. 6. Severe protein caloric malnutrition. POA. We will continue to discussion whether or not TPN should be reinstituted. Discussed this with gastroenterology over the weekend and will place a nasogastric tube for tube feed trial of her 1-2 months at home. 7. Left arm DVT, PICC associated. POA. Continue fondaparinux, we will try to avoid placement of another PICC. We will remove her central access as soon as possible. Patient is full resuscitation, admitted inpatient status with an estimated length of stay of over 2 nights. Pain Evaluation: Adequate Pain Control Resuscitation Status: CPR: Attempt Resuscitation Time spent 30 minutes Daryl Aguilar MD Nov 09, 2016 13:14
--- NOTE | 2016-11-09 14:17 | DRSVH ---
PROCEDURE: X-RAY CHEST ONE VIEW, PORTABLE ([id number]) INDICATIONS: 31 year-old female with nasogastric tube placement. TECHNIQUE: One view of the chest was acquired. COMPARISON: [facility], CR, XR CHEST 1VW (PORTABLE), 11/07/2016, 9:47. [facility], CR, XR CHEST 1VW (PORTABLE), 11/06/2016, 12:05. [facility], CR, XR CHEST 1VW (PORT ABLE), 11/06/2016, 11:12. FINDINGS: Surgical changes and devices: New weighted feeding tube is present, with tip in the gastric body. Rig ht internal jugular central venous catheter remains in expected position. Lungs and pleura: No pleural effusions or pneumothorax. Lungs are clear. Mediastinum: Mediastinal contours appear normal. Heart size is normal. Bones and chest wall: No suspicious bony lesions. Overlying soft tissues appear unremarkable. IMPRESSION: New weighted feeding tube is present, with tip in the gastric body. Dictated by: Maikol Guido M.D. on 11/09/2016 at 14:14 Approved by: Maikol Guido M.D. on 11/09/2016 at 14:15
[2016-11-09] MEDS ORDERED: Lidocaine 4% 4 mL Laryng-O-Jet Top Soln MUC_MEMBRM PRN (17:00)
[2016-11-09] MEDS: Alum-Mag Hydrox-Simeth 30 mL Suspension PO PRN (19:37)
--- NOTE | 2016-11-09 19:47 | NUR ---
Fluids/NG tube Pt on NS at 125mL/Hr and anasarca continues, spoke with MD, IVF D/C'd and IV lasix dose ordered, Pt's UOP 900mL this shift, anasarca appeared to improve with less weeping noted. Pt's PO intake insufficient, spoke with MD and instructed to insert small gauge NG tube for tube feedings, 12 Fr NG tube placed in right nare, f/u x-ray ordered to confirm placement, MD notified and message left with vice admiral office regarding placement. Pt reporting irritation in throat from NG placement, paged, lidocaine PRN ordered, pharmacy contacted prior to shift change to send up dose, oncoming NOC RN notified.
--- NOTE | 2016-11-09 23:07 | NUR ---
PAIN/LE EDEMA Pt pleasant and cooperative with care, vitals stable, SR-ST 70-100's. Pt has chronic pain r/t Crohn's disease. Pt has IV Diladid Q3 hours PRN. Pt has requested PRN pain meds x2 as of 2300. Pt has LE edema that is weeping small amounts onto a chucks pad, pad changed x1 as of 2300. New Ng tube was placed by day shift, no new orders are in place to start feed at this time. Pt has a triple lumen IJ, that is SL and patent. No other issues noted at this time.
[2016-11-10] VITALS (8 sets, daily range): BP systolic 108–122; BP diastolic 78–103; PULSE 76–107; RESP 12–20; O2SAT 95–99
[2016-11-10] MEDS: Benzocaine-Menthol Lozenge 2/Pkg PO PRN (02:41)
[2016-11-10] MEDS: HYDROmorphone 0.5 mg/0.5 mL iSecure Syringe IVPUSH PRN ×2 (03:56→09:26)
[2016-11-10] MEDS: Ondansetron 2 mg/mL 2 mL Inj IVPUSH PRN ×2 (08:54→17:05)
[2016-11-10] MEDS: Hydrocortisone 50 mg/mL 2 mL Inj IVPUSH SCH ×2 (08:54→16:55)
[2016-11-10] MEDS: 0.9% Sodium Chloride 1,000 ML IV SCH ×2 (10:44→18:27)
[2016-11-10 10:56] LABS: BASOPHILS % (AUTO) 0.1 % (0-3); EOSINOPHILS % (AUTO) 0 % (0-5); MONOCYTES % (AUTO) 2.5 % (4-12); Mean Corpuscular Hemoglobin 25.3 pg (27.0-35.0); Mean Corpuscular Volume 81.8 fL (81-100); NEUTROPHILS % (AUTO) 87.8 % (40-74); Platelet Count 110 bil/L (150-400)
[2016-11-10 11:17] LABS: Magnesium 2.5 mg/dL (1.6-2.6); Phosphorus 2.9 mg/dL (2.5-4.9)
[2016-11-10] MEDS ORDERED: Furosemide 10 mg/mL 4 mL Inj IVPUSH ONE (12:00)
--- NOTE | 2016-11-10 13:18 | PCM.PNMED ---
Subjective Date of Service Nov 10, 2016 Subjective Overnight: No acute events Today: Denies fever/chills. States generalized malaise/pain, notably of feet. Has not yet stood at bedside. Reports mild discomfort with Dobhoff, but understand usefulness. Admits to some left arm discomfort, but much improved. Admits to constant abdominal pain, moderately controlled with narcotics, but wishes it would be better controlled to a reasonable level. States feet remain swollen and painful. Exam Vital Signs Vital Sign - Last Date Time Temp Pulse Resp B/P Pulse Ox O2 Delivery O2 Flow Rate FiO2 11/10/16 02:44 36.6 77 12 108/82 98 Room Air 11/08/16 12:16 3.00 Intake and Output 11/09/16 11/09/16 11/10/16 Cumulative From/Thru 14:59 22:59 06:59 11/06/16 10:38 - 11/10/16 06:03 Intake Total 1488 ml 708 ml 260 ml 94463 ml Output Total 840 ml 255 ml 4365 ml Balance 1488 ml -132 ml 5 ml 36032 ml Intake Oral 708 ml 260 ml 5284 ml IV Total 1488 ml 18319 ml Output Urine Total 750 ml 180 ml 2700 ml Stool Total 90 ml 75 ml 1665 ml Exam General: Frail, extremely thin woman, no acute distress; resting supine in bed HENT: Atraumatic; cushinoid-facies; mucus membranes moist; NGT in place Neck: No pain with ROM, trachea midline Cardiac: Accentuated sounds secondary to habitus, no murmurs appreciated; regular rate and rhythm Respiratory: Adequate air flow all castillo; no coarse sounds appreciated Abdomen: Ileostomy in place; no distention; mild pain with palpation Extremities: BL feet edematous and reported to be tender to palpation Skin: Warm and dry Neuro: CNII-XII grossly intact; no facial asymmetry; normal speech Psych: Appropriate mood, affect, and responses to questioning; good insight and judgment Lab and Diagnostics Result Diagram: 11/09/16 1045 11/09/16 0920 X-Rays, CTs and MRIs Chest x-ray before and after right IJ central line is unremarkable. Assessment & Plan Ms. Terra Beauchamp is a pleasant 31 year old woman that recently moved to the [facility] from with a complex history of Crohn's disease s/p ileostomy on chronic glucocorticoids with recent initiation of Humira therapy, multiple prior obstructions/near obstructions near ostomy, recurrent flares, and recent left UE DVT secondary to PICC placement for TPN, who presented to the ED with acute on chronic diffuse abdominal pain, cramping, nausea, vomiting, and progressive weakness. She was admitted for evaluation and treatment of hypovolemic shock secondary to exacerbation of Crohn's. - Hospital day 5 Acute exacerbation of Crohn's disease, present on admission. Ongoing - Ostomy stenosis may also play a role - Home Rx: manager terminal glucocorticoid with taper and Humira - GI has been consulted; appreciate time and recommendations - Plan for colonoscopy 11/11 - Clears only at this time; no tube feeds Suspected adrenal insufficiency secondary to manager terminal steroid use, acute, present on admission. Under therapy - Home Rx: Prednisone 25mg daily - Stress dose steroids in place: Solu-Cortef 100mg q8 Hypocalcemia, acute, present on admission. Under evaluation and treatment - On admit: 5.7; currently 7.0 - Monitor Hyponatremia, acute, present on admission. Ongoing - On admit: Na 123 - H/o hyponatremia in previous hospitalizations likely secondary to poor po intake - Continue to address nutritional needs and underlying etiology of n/v Severe protein/calorie malnutrition, chronic. Under evaluation - H/o BMI < 18.5; seen on multiple admissions - H/o TPN requirements - Nutrition following - Dobhoff in place for feedings - Currently NPO for planned colonoscopy 11/11 Hypovolemic shock, acute, present on admission. Resolved - Likely secondary to decrease in po intake in days leading to admission - Currently stable Possible sepsis, acute, present on admission. Resolved - Unlikely as Dx - DC'd Zosyn Left upper extremity DVT, acute, present on admission. Under therapy - Secondary to previous PICC placement; Dx October 2016 - Fondaparinux 5mg qhs x6 mo therapy Bilateral lower extremity edema, acute, not present on admission. Under therapy - Home Rx: Lasix 20mg daily - Lasix 40mg IV x1 - Monitor Chronic pain. Managed - Long-standing issue; patient reports constant pain - Dilaudid 1-2mg IV q3h prn - DVT: Therapeu fondaparinux 5mg qhs - Diet: Clears only; plan for procedure 11/11 - GI: None - PRN bowel/fever/pain/antiemetic - Code: FULL CODE Dispo: Likely to remain 1-2 additional days while procedure completed and nutritional plan developed. Will work with GI for nutritional and steroid plan. Will make PAINTLESS DENT REPAIR TECHNICIAN aware of any nutritional needs, such as outpatient tube feeds vs TPN, when decided. Pain Evaluation: Adequate Pain Control GI Prophylaxis: Not indicated VTE Prophylaxis: Sub-Q Fondaparinux VTE Mechanical Devices: Intermittant Pneumatic CD Resuscitation Status: CPR: Attempt Resuscitation Time spent 30 minutes Attending Statement Patient seen and examined with resident, agree with all attached documentation Elissa Arteaga DO Nov 10, 2016 08:14 Daryl Aguilar MD Nov 11, 2016 18:26
--- NOTE | 2016-11-10 13:41 | NUR ---
NUTRITION FOLLOW UP Assess: 31 yo F w/ sepsis, dehydration, and Crohns. Pt w/ multiple recent admissions. Her wt is up since last admission. Pt's mom feels the wt loss is mostly fluids. NG tube placed on 11/09, and ordered TF to start. Pt notes slight throat irritation from NG tube, and lidocaine was provided. PMHx: Crohns, DVT, Steroid dependence, PE. LABS: Na 128, Ca 6.6, Alk Phos 215, Alb 0.8 MEDICATIONS: Zofran, Maalox CURRENT DIET: Clear liquids No PO recorded since 11/08 GI symptoms/stool: 75 ml via ileostomy 11/10 SKIN: Wilfrido 15 - Puncture wound to right arm noted ANTHROPOMETRICS: Current Wt: 55.6 kg (likely fluid) BMI: 20.4 kg/m2 Admit Wt: 47.3 kg Admit BMI: 17.4 kg/m2 IBW: 56.8 kg Recent wt changes: Wt loss ESTIMATED NEEDS: Calories: 9124-6243 kcal/d (30-35 kcal/kg/d Admit Wt) Protein: 70-85 g/d (1.2-1.5 g/kg/d IBW) Fluids: 7482-8523 ml/d (1 ml/kcal/d) NUTRITION DIAGNOSIS: 1) Severe malnutrition related to GI abnormalities as evidenced by malabsorption, inability to meet 75% of est needs for 1+ months, BMI <18.5 kg/m2, and loss of LBM and subcutaneous fat.---PERSISTS INTERVENTION: 1) Initiate TF of Vital 1.5 @ 10 ml/hr for 24 hrs, monitoring closely for refeeding. 2) Once pt tolerating TF, recommend advancing @ 10 ml q 6 hrs to goal rate of 45 ml/hr to provide 1553 kcal and 73 g protein, meeting 100% of calorie and protein needs. 3) Goal rate may need to be adjusted based on oral intake. 4) Flush w/ 40 ml q 4 hrs. If IV d/c, flush w/ 120 ml free water q 4 hrs for additional fluid intake of 720 ml. MONITOR/EVALUATE: TF start/adv, labs, wt, GI, nutrition status, POC. Will follow per high nutrition risk guidelines. Addendum: 11/10/16 at [address]5 [address] Auxiliary student documentation reviewed. I agree with above documentation. Georgette Rodríguez RDN, CD
[2016-11-10] MEDS: HYDROmorphone 1 mg/mL Inj IVPUSH PRN ×3 (16:56→22:19)
--- NOTE | 2016-11-10 18:22 | NUR ---
Nutrition/Tube Feed Pt started on Tube feed @ 10mls/hr. c/o nausea within first 10 minutes of start. Administered 8 mg of Zofran with relief. Examination of ileostomy shows stool to be liquid brown. Per GI doc, pt to be encouraged to eat, as she has very low levels of albumin. Pt is currently on general diet. NPO at midnight. Tube feed to be stopped at 0400 for 1030 procedure.
--- NOTE | 2016-11-10 21:17 | CONS ---
[address] [address] CONSULTATION REPORT PATIENT: MAE FELIZ : 1985 MR#: [id number] ADMIT: 11/06/2016 JOB ID: [id number] CORRECTED REPORT: DATE: 11/10/2016 REQUESTING PROVIDER: Elissa Arteaga D.O. REASON FOR CONSULTATION: Complex Crohn's. HISTORY OF PRESENT ILLNESS: This is a 31-year-old female whom I recently 1st met back on September 24. She has a history of total proctocolectomy with end ileostomy for advanced Crohn's disease. She has evidence of mild ongoing disease and was recently started on Humira. She has a severe stomal stricture and presented with severe protein calorie malnutrition. She had a temporary PICC line in September for temporary TPN. Unfortunately, she got a DVT in the location of where this PICC line was. She has been commenced on anticoagulation and following her last hospitalization discharged on fondaparinux back on October 28 (she incidentally also had presented with acute norovirus infection at that time). She was readmitted with syncope and hypotension back on November 06. The patient was having nausea and vomiting at the time of admission, but that has since resolved with supportive care. She was treated for possible adrenal insufficiency based on her steroid use and has been treated with 100 mg of hydrocortisone every 8 hours here in the hospital. She is being monitored for hypocalcemia and hyponatremia. She was just recently started on tube feeds, but these were actually not commenced today because there was a thought she may get a procedure. She temporarily received Zosyn at the outset of this admission. PHYSICAL EXAMINATION: Afebrile over the course of admission. She is in no distress. She has mild anasarca. No abdominal distention. She was in good spirits, however. Alert, oriented, appropriate, conversational. LABORATORY: Calcium is 7.0, sodium 125, potassium 4.3, chloride 98, bicarb 19, BUN 19, creatinine 0.87, glucose 107. Mag and phos are normal. Alk phos has bumped up a little bit to 249. Otherwise liver tests are normal. Her albumin is quite low at 0.9. INR was 1.37 on admission. Hemoglobin is 9.3, hematocrit 30.1, white count 13.4, platelets 110. ASSESSMENT AND RECOMMENDATIONS: This is a 31-year-old female with complex Crohn's. Her last dose of Humira was on October 28. She had been tapered down to 25 mg a day prednisone and is currently being maintained here in the hospital on hydrocortisone IV. With the nausea, vomiting, dehydration and syncope at presentation, I wonder if she has not been experiencing progressive obstruction at the level of her stoma which may have actually prevented her from getting her prednisone absorbed. Certainly, she could very easily have suffered severe adrenal insufficiency as a consequence. I would like to hold the fondaparinux this evening and have a look at the stoma tomorrow under anesthesia and potentially dilate this under fluoroscopy. Otherwise, I fully agree with the continuous tube feeds in light of her severe protein calorie malnutrition. These will need to be held as of about 4:30 in the morning in anticipation of her procedure. Ultimately, when she is comfortably taking p.o.'s again, I would then put her back on prednisone 20 mg daily. With this, she will need to be monitored closely for withdrawal symptoms once again. Corrected by TAYLOR 12/01/16 at 9:54am Report type.
[2016-11-11] VITALS (12 sets, daily range): BP systolic 113–126; BP diastolic 84–93; PULSE 71–110; RESP 16–20; O2SAT 92–99
[2016-11-11] MEDS: Hydrocortisone 50 mg/mL 2 mL Inj IVPUSH SCH ×2 (00:10→08:37)
[2016-11-11] MEDS: 0.9% Sodium Chloride 1,000 ML IV SCH ×2 (02:17→15:00)
[2016-11-11] MEDS: HYDROmorphone 1 mg/mL Inj IVPUSH PRN ×8 (04:14→23:27)
[2016-11-11] MEDS: Sodium Chloride LOK Flush 10 mL Syringe IVFLUSH PRN (04:14)
[2016-11-11 04:31] LABS: Mean Corpuscular Hemoglobin 25.3 pg (27.0-35.0); Mean Corpuscular Volume 82.1 fL (81-100); Platelet Count 105 bil/L (150-400)
[2016-11-11 04:49] LABS: BASOPHILS % (AUTO) 0.1 % (0-3); EOSINOPHILS % (AUTO) 0 % (0-5); MONOCYTES % (AUTO) 2.3 % (4-12); NEUTROPHILS % (AUTO) 84.9 % (40-74)
--- NOTE | 2016-11-11 04:57 | NUR ---
Pain/ Skin Pt c/o abdominal pain overnight. PRN 1mg IV Dilaudid given with good effects. Pt sleeping intermittently- Pt awoke in early am with bad pain- 1 Mg IV Dilaudid given- Upon reassessment pt requesting additional 1mg. Med given- pt currently sleeping comfortably. Pt noted to have areas of weeping edema. Abd pad, and kerlix wrap placed to L AC. In addition abd pads and green pads to left hip. dressing to right carrion changed as well,.
[2016-11-11 05:05] LABS: Magnesium 2.6 mg/dL (1.6-2.6); Phosphorus 2.8 mg/dL (2.5-4.9)
[2016-11-11] MEDS ORDERED: Lactated Ringer's 1,000 ML IV ONE ×2 (06:00→10:03)
--- NOTE | 2016-11-11 07:31 | PCM.HPANE ---
Patient Data Surgeon Admitting Provider:Daryl Aguilar MD Attending Provider:Daryl Aguilar MD Primary Care Physician:Karissa Vicente DO Other Provider: Reason for Visit Dehydration,Sepsis Ht/WT & BMI Height (Feet): 5 Height (Inches): 5.00 Weight (Kilograms): 55.600 Body Mass Index 16.60 Allergies Coded Allergies: Iodinated Contrast Media - Oral and (Verified Allergy, Severe, Shortness of Breath,full body rash/redness, 11/06/16) Past Anesthesia History Anesthesia History: Denies:: Abnormal Airway, Anesthesia Reactions, Difficult Intubation Diabetes History Hx Diabetes?: No Current Bedside Blood Glucose: 114 MRSA MRSA: No Medications Hypertension Medication: Yes Home Meds Incl Beta Radha: No Active Scripts Oxycodone (Roxicodone)15 Mg [id number] Mg PO Q6H PRN For Pain #60 TABLET Ref 0 Prov:Purnima Recio DO 10/28/16 Furosemide (Lasix)20 Mg Xrwcby20 Mg PO DAILY #15 TABLET Ref 0 Prov:Purnima Recio DO 10/28/16 Fondaparinux Sodium 5 Mg/0.4 Ml Syringe5 Mg SQ DAILY anticoagulation #30 SYR Prov:HU JAUREGUI DO 10/28/16 Adalimumab (Humira Crohn's)40 Mg/0.8 Ml Pen.[id number] Mg SQ ONCE #2 DOSE Prov:Karissa Vicente DO 10/04/16 Dicyclomine (Bentyl)10 Mg Nupyqyr36 Mg PO QID #120 CAPSULE Prov:Karissa Vicente DO 10/04/16 Reported Medications Ascorbate Calcium (Vitamin C)500 Mg [id number] Mg PO DAILY 11/06/16 Diazepam (Valium)2 Mg Tablet1 Mg PO TID PRN For Anxiety 30 Days Ref 0 11/06/16 Prednisone (PredniSONE)20 Mg Zbpugd15 Mg PO DAILY Ref 0 11/06/16 Promethazine 12.5 Mg Tablet6.25 Mg PO PRN For Nausea 10/21/16 Discontinued Scripts Diazepam (Valium)2 Mg Tablet2 Mg PO TID PRN For Anxiety #30 TABLET Ref 0 Prov:Purnima Recio DO 10/28/16 Prednisone (PredniSONE)10 Mg Uujvlj09 Mg PO DAILY 10 Days Ref 0 Prov:Purnima Recio DO 10/28/16 History History of ENT Problems?: No HEENT History: Denies:: Abnormal Airway Difficult Intubation Hearing Problem Sinus Problem Hx of Heart Problems?: Yes Cardiovascular History: Positive for:: Heart Murmur Denies:: Cardiac Surgery Chest Pain Congestive Heart Failure Edema Hypertension Irregular Heartbeat Pacemaker Thrombophlebitis Hx of Respiratory Problem?: Yes Respiratory History: Denies:: Asthma COPD Chest Surgery Emphysema Hemoptysis Pneumonia Tuberculosis Other Resp Pertinent History: PE Hx Neurologic Problems?: No Neurological History: Denies:: CVA Hx of GI Problems?: Yes Gastrointestinal History: Positive for:: Heartburn Denies:: Diverticulitis Gastroesphageal Reflux Gastrointestinal Bleeding Hepatitis Hiatal Hernia Rectal Bleeding Other GI Pertinent History: Crohns disease w/ illeostomy Hx of Problems?: No Female Hx: Denies:: Currently Endometriosis Pelvic Inflammatory Problems with Breasts? Hx Musculoskeletal Problems?: Yes Musculoskeletal History: Denies:: Back Injury Joint Replacement Musculoskeletal Trauma Hx of Psycho/Social Problems?: Yes Psycho Social History: Positive for:: Anxiety Denies:: Bipolar Disorder Hx Depression Suicide Attempt Hx Surgeries?: Yes (total proctolectomy with end illeostomy ) Hx Any Other Health Problems?: No Other History: Positive for:: Hospitalization (Crohns/dehydration) Denies:: Cancer Thyroid Disease History Blood Transfusions: Positive for:: Accept Blood Products? Blood Transfusions Denies:: Blood Transfuse Reaction Hx Diabetes: NoBedside Blood Glucose: 114 Occupation: 9 Hx Alcohol Use: NoHx Substance Use: No Smoking Status: Never Smoker Have You Smoked inLast 12 mo: No Stop/Bang Treated for Sleep Apnea?: No Do You Have a CPAP Machine?: No S-Snoring: Do You Snore Loudly: No T-Tired: feel tired, fatigued: Yes O-Obsered: Observed not breath: No P-Blood Pressure: treated: No B- Body Mass Index > 35 kg/m2: No A- Age over 50: No N- Neck Large Circumference: No G- Gender Male: No FELIX Total Score: 1 FELIX Risk Assessment: Low Risk, <3 Yes Risk Assessment Category Category 1A: Patient has history of documented sleep apnea, and HAS NOT received any narcotic, sedative or anesthesia administration during this stay. Category 1B: Patient has history of documented sleep apnea, and HAS received any narcotic , sedative or anesthesia administration during this stay Category 2: Patient has SUSPECTED Obstructive Sleep Apnea, and HAS received any narcotic , sedative or anesthesia administration during this stay. Category 3: Patient has SUSPECTED Obstructive Sleep Apnea and HAS NOT received narcotic, sedative or anesthesia administration during this stay. Category 4: Outpatient in Procedural Areas with known sleep apnea or who screen positive for High Risk via the STOP/BANG questionnaire. Exam Exam Vital Signs Vital Signs Date Time Temp Pulse Resp B/P Pulse Ox O2 Delivery O2 Flow Rate FiO2 11/11/16 04:10 36.3 90 18 113/86 93 Room Air 11/10/16 23:52 36.2 77 18 115/81 96 Room Air General Appearance: Alert, Oriented X3, Cooperative, No Acute Distress HEENT/AIRWAY: MP 2 Lungs: Clear to Auscultation, Normal Air Movement Heart: Exam Unremarkable, Regular Rate/Rhythm, No Murmurs/Rubs/Gallops Meds/Labs/Diagnostics Admission Meds Current Medications Sodium Chloride 1,000 ml @ 100 mls/hr Q10H IV Last administered on 11/10/16 10 :44; Start 11/10/16 at 09:00 Lactated Ringer's (Lr) 1,000 ml @ 10 mls/hr Q24H ONCE IV Last administered on 11/11/16 06:26; Start 11/11/16 at 06:00; Stop 11/12/16 at 05:59 Furosemide (Lasix Inj) 40 mg ONCE ONCE IVPUSH Last administered on 11/10/16 12 :53; Start 11/10/16 at 12:00; Stop 11/10/16 at 12:08; Status DC Bedside Blood Glucose: 114 Labs Test 11/06/16 12:15 11/06/16 12:47 11/06/16 17:28 11/09/16 03:45 Band Neutrophils % 7% (1-5) Prothrombin Time 14.7sec (8.1-12.5) Prothromb Time International Ratio 1.37ratio Troponin T 0.010ug/L (0.0-0.011) Urine Color Dark yellow (YELLOW) Urine Appearance Hazy (CLEAR,HAZY) Urine pH 5.5 (5.0-8.0) Urine Specific [place] 1.025 (1.003-1.035) Urine Protein Negativemg/dL (NEG,TRACE) Urine Glucose (UA) Negativemg/dL (NEGATIVE) Urine Ketones Tracemg/dL (NEGATIVE) Urine Occult Blood Negative (NEGATIVE) Urine Nitrite Negative (NEGATIVE) Urine Bilirubin Negative (NEGATIVE) Urine Urobilinogen Normalmg/dL (NORMAL) Urine Leukocyte Esterase Small (NEGATIVE) Urine RBC 0-2/hpf (0-2) Urine WBC 11-50/hpf (0-5) Urine Epithelial Cells Occasional/hpf (NONE-MOD) Urine Crystals None seen (NONE SEEN) Urine Bacteria Few/hpf (NONE-FEW) Urine Hyaline Casts Occasional/lpf (NONE) Urine Granular Casts None seen (NONE SEEN) Urine Waxy Casts None seen (NONE SEEN) Urine Red Blood Cell Casts None seen (NONE SEEN) Urine White Blood Cell Casts None seen (NONE SEEN) Urine Mucus Present (None Seen) Urine Trichomonas None seen (NONE SEEN) Urine Yeast None (NONE SEEN) Urinalysis Comment None Urine Culture Reflexed Indicated Hemoglobin A1c 4.3% (4.8-5.6) Lactic Acid Level 0.8mmol/L (0.4-2.0) Prealbumin 7mg/dL (20-40) Test 11/10/16 10:43 11/11/16 04:20 Total Bilirubin 0.2mg/dL (0.0-1.2) Aspartate Amino Transf (AST/SGOT) 19U/L (0-50) Alanine Aminotransferase (ALT/SGPT) 27U/L (0-32) Alkaline Phosphatase 249U/L (25-150) Total Protein 3.6g/dL (6.4-8.4) Albumin 0.9g/dL (3.4-5.0) White Blood Count 7.7th/mm3 (3.8-10.1) Red Blood Count 3.40mil/mm3 (3.90-5.20) Hemoglobin 8.6g/dL (12.0-15.6) Hematocrit 27.9% (35.0-46.0) Mean Corpuscular Volume 82.1fL (81-100) Mean Corpuscular Hemoglobin 25.3pg (27.0-35.0) Mean Corpuscular Hemoglobin Concent 30.8% (32.0-37.0) Red Cell Distribution Width 16.4% (12.3-15.4) Platelet Count 105bil/L (150-400) Neutrophils (%) (Auto) 84.9% (40-74) Lymphocytes (%) (Auto) 11.7% (14-46) Monocytes (%) (Auto) 2.3% (4-12) Eosinophils (%) (Auto) 0% (0-5) Basophils (%) (Auto) 0.1% (0-3) Sodium Level 128mEq/L (134-144) Potassium Level 4.2mEq/L (3.5-5.2) Chloride Level 99mEq/L (97-108) Carbon Dioxide Level 21mmol/L (18-29) Blood Urea Nitrogen 18mg/dL (6-20) Creatinine 0.83mg/dL (0.57-1.00) Estimat Glomerular Filtration Rate 115mL/min (>59) Glucose Level 130mg/dL (60-99) Calcium Level 6.7mg/dL (8.5-10.1) Phosphorus Level 2.8mg/dL (2.5-4.9) Magnesium Level 2.6mg/dL (1.6-2.6) Plan Impression Patient chart reviewed, patient interviewed and anesthestic plan with risks, benefits, and alternatives discussed, and informed consent obtained. ASA Physical Status: ASA3 Severe Disease Anesthetic Plan: MAC Bene/Risks/Altern/Consents: Yes HP Complete Prior to Induction: Yes Aditya Del Toro MD Nov 11, 2016 07:31
--- NOTE | 2016-11-11 09:23 | NUR ---
Dickod Pt off unit for endoscopic procedure. Report given to Adry DAVISON. Tele notified
[2016-11-11] MEDS ORDERED: Lactated Ringer's 1,000 ML IV SCH (10:07)
[2016-11-11] MEDS ORDERED: Ondansetron 2 mg/mL 2 mL Inj IVPUSH PRN (10:10)
--- NOTE | 2016-11-11 11:55 | ENDO ---
[address] [address] ENDOSCOPY PROCEDURE PATIENT: MAE FELIZ : 1985 MR#: [id number] ADMIT: 11/06/2016 JOB ID: [id number] DATE: 11/11/2016 PROCEDURE: Limited enteroscopy with balloon dilatation under fluoroscopy. INDICATIONS: A 31-year-old female with complex Crohn's readmitted for dehydration, syncope, nausea and vomiting. She has a history of severe stoma stenosis. Endoscopic interrogation is pursued for further dilatation. EQUIPMENT: XP 190 N. SEDATION: Monitored anesthesia is provided by Dr. Aditya Del Toro. COMPLICATIONS: None identified. BOWEL PREPARATION: None. There was a moderate amount of soft brown stool in her stoma bag consistent with the initiation of tube feeds yesterday. COMPLICATIONS: None identified. PROCEDURAL INFORMATION: After the risks and benefits were explained, written and verbal informed consent was obtained. The patient was brought into the endoscopy suite and placed into the supine position on the fluoro bed. Sedation was achieved. Examination of the stoma revealed that the patient once again had severe stenosis and I could not get a finger through this. We, therefore, called for the 5 mm XP scope. With some difficulty, I was able to navigate this through the tight stomal stenosis into a liquid brown stool filled terminal ileum. We navigated perhaps 25 cm in and then advanced an 450 cm straight 0.035 Dreamwire well into the small bowel. This was confirmed fluoroscopically. The scope was then removed and the wire left in situ. We then used an 8-10 mm CRE dilating balloon and under fluoroscopy dilated the stenotic stricture sequentially at 1 minute intervals. At the 10 mm setting, we initially saw some persistent waist but this for the most part disappeared after a couple of rounds of dilatation at 1 minute each. There was some mild heme consistent with dilatation effect and stool easily evacuated through the stoma after we were finished. The wire was thus removed along with the dilating catheter. The patient seemed to tolerate the procedure well. FINDINGS: There was still an element of active inflammation in the terminal ileum just proximal to the stenotic stoma. Right below the stoma, there did appear to be a possible fistulous connection with some other area of the GI tract. I, however, could not navigate the scope through the smaller opening. The wire was left in situ as above. Dilatation was pursued as above. ENDOSCOPIC DIAGNOSES: 1. Stomal stenosis status post balloon dilatation to 10 mm. 2. Active mild terminal ileitis. 3. Possible internal fistula. RECOMMENDATIONS: 1. Resume tube feeds. 2. Re-initiate fondaparinux today. Ideally we should wait until this afternoon following the dilatation effect. 3. Will schedule for repeat dilatation next week under fluoroscopy. At that time hopefully the patient will be able to tolerate bowel preparation so we can get a better look at all of the structures just proximal to the stoma. If we are not able to properly identify the anatomy then following her endoscopic evaluation in a week's time, we could pursue a Gastrografin or even a barium "enema" through the stoma.
--- NOTE | 2016-11-11 13:09 | PCM.PNMED ---
Subjective Date of Service Nov 11, 2016 Subjective Overnight: Tolerated initiation of tube feeds well. Tolerated po intake well. No acute events; tube feeds held and pt was NPO in anticipation for endoscopy. Today: Tolerated endoscopy well, denies uncontrolled pain. Admits to being fatigued and 'loopy' secondary to anesthetics. Resting in bed comfortably without acute distress. Exam Vital Signs Vital Sign - Last Date Time Temp Pulse Resp B/P Pulse Ox O2 Delivery O2 Flow Rate FiO2 11/11/16 10:03 110 11/11/16 09:41 16 115/85 94 Room Air 11/11/16 08:32 36.4 11/08/16 12:16 3.00 Intake and Output 11/10/16 11/10/16 11/11/16 Cumulative From/Thru 15:00 23:00 07:00 11/06/16 10:38 - 11/11/16 04:41 Intake Total 360 ml 535 ml 80463 ml Output Total 1020 ml 250 ml 5635 ml Balance -660 ml 285 ml 59941 ml Intake Oral 360 ml 300 ml 5944 ml IV Total 31353 ml Tube Feeding 115 ml 115 ml Tube Irrigant 120 ml 120 ml Output Urine Total 950 ml 250 ml 3900 ml Stool Total 70 ml 1735 ml Exam General: Frail, extremely thin woman, no acute distress; resting supine in bed HENT: Atraumatic; cushinoid-facies; mucus membranes moist; NGT in place Neck: No pain with ROM, trachea midline Cardiac: Accentuated sounds secondary to habitus, no murmurs appreciated; regular rate and rhythm Respiratory: Adequate air flow all castillo; no coarse sounds appreciated Abdomen: Ileostomy in place; no distention; mild pain with palpation Extremities: BL feet edematous and continues to be reported to be tender to palpation Skin: Warm and dry Neuro: CNII-XII grossly intact; no facial asymmetry; normal speech Psych: Appropriate mood, affect, and responses to questioning; good insight and judgment Lab and Diagnostics Result Diagram: 11/11/1641911/11/16419 X-Rays, CTs and MRIs Chest x-ray before and after right IJ central line is unremarkable. Assessment & Plan Ms. Terra Beauchamp is a pleasant 31 year old woman that recently moved to the [facility] from with a complex history of Crohn's disease s/p ileostomy on chronic glucocorticoids with recent initiation of Humira therapy, multiple prior obstructions/near obstructions near ostomy, recurrent flares, and recent left UE DVT secondary to PICC placement for TPN, who presented to the ED with acute on chronic diffuse abdominal pain, cramping, nausea, vomiting, and progressive weakness. She was admitted for evaluation and treatment of hypovolemic shock secondary to exacerbation of Crohn's. - Hospital day 6 Acute exacerbation of Crohn's disease with ostomy stenosis, present on admission. Ongoing - Home Rx: fci glucocorticoid with taper and Humira - GI has been consulted; appreciate time and recommendations - Colonoscopy with stoma dilation completed 11/11; final report by Dr. Valdez completed - Restart tube feeds, encourage po intake as tolerated - Possible return to endoscopy in one week to dilate again Suspected adrenal insufficiency secondary to fci steroid use, acute, present on admission. Under therapy - Home Rx: Prednisone 20mg daily - Stress dose steroids utilized: Solu-Cortef 100mg q8 - After scope completed, can re-initiate po prednisone at tapered dose 25mg if tolerating po well Hypocalcemia, acute, present on admission. Under evaluation and treatment - On admit: 5.7; currently 7.0 - Monitor Hyponatremia, acute, present on admission. Ongoing - On admit: Na 123 - H/o hyponatremia in previous hospitalizations likely secondary to poor po intake - Continue to address nutritional needs and underlying etiology of n/v Severe protein/calorie malnutrition, chronic. Under evaluation - H/o BMI < 18.5; seen on multiple admissions - H/o TPN requirements - Nutrition following - Dobhoff in place for feedings - Likely require tube feeding at DC; not candidate for TPN - Resume tube feeds Hypovolemic shock, acute, present on admission. Resolved - Likely secondary to decrease in po intake in days leading to admission - Currently stable Possible sepsis, acute, present on admission. Resolved - Unlikely as Dx - DC'd Zosyn Left upper extremity DVT, acute, present on admission. Under therapy - Secondary to previous PICC placement; Dx October 2016 - Fondaparinux 5mg qhs x6 mo therapy - Resume when po Bilateral lower extremity edema, acute, not present on admission. Under therapy - Home Rx: Lasix 20mg daily; resume when po - Lasix 40mg IV x1 - Monitor Chronic pain. Managed - Long-standing issue; patient reports constant pain - Dilaudid 1-2mg IV q3h prn Weakness, acute, present on admission. Ongoing - Likely secondary to poor po intake, poor nutritional status, and repeated hospitalizations - PT to continue while hospitalized - Recs include SNF placement Microcytic, hypochromic anemia, chronic. - Likely secondary to poor nutrition, as above - Treat underlying causes - Optimize nutritional supplementation - DVT: Therapeu fondaparinux 5mg qhs - Diet: Clears only; plan for procedure 11/11 - GI: None - PRN bowel/fever/pain/antiemetic - Code: FULL CODE Dispo: Likely to remain 1-2 additional days while procedure completed and nutritional plan developed. Will work with GI for nutritional and steroid plan. Will make BASS STRING WINDER aware of any nutritional needs, such as outpatient tube feeds vs TPN, when decided. At this time, tube feeding will likely be required. PT recommending SNF, which may be an optimal choice to promote adequate nutrition and continued physical therapy to regain and maintain strength. Pain Evaluation: Adequate Pain Control GI Prophylaxis: Not indicated VTE Prophylaxis: Sub-Q Fondaparinux VTE Mechanical Devices: Intermittant Pneumatic CD Resuscitation Status: CPR: Attempt Resuscitation Time spent 30 minutes Attending Statement Patient seen and examined with resident, agree with all attached documentation Elissa Arteaga DO Nov 11, 2016 11:28 Daryl Aguilar MD Nov 11, 2016 18:27
--- NOTE | 2016-11-11 15:47 | PCM.ANEP1 ---
Post Anesthesia Phase 1 PACU Phase 1 Assessment Vital Signs Vital Signs Date Time Temp Pulse Resp B/P Pulse Ox O2 Delivery O2 Flow Rate FiO2 11/11/16 12:35 35.0 92 16 122/90 92 Room Air 11/11/16 11:44 78 17 122/93 97 Room Air 11/11/16 11:31 87 17 118/84 99 Room Air 11/11/16 11:21 36.2 97 17 114/89 97 Room Air 11/11/16 10:03 110 11/11/16 09:41 100 16 115/85 94 Room Air 11/11/16 08:36 Supplement Oxygen 11/11/16 08:32 36.4 85 16 122/87 97 Room Air Anesthetic Administered: MAC Level of Alertness: Awake, talking PERALTA's with Equal Strength: Yes Pain: No Pain Scale Score: 5 Nausea or Vomiting: No Oxygen Delivery: Nasal Cannula Lungs: Clear to Auscultation, Normal Air Movement Dermatome Level: Full Sensation Aditya Del Toro MD Nov 11, 2016 15:47
--- NOTE | 2016-11-11 15:47 | PCM.ANEP2 ---
Post Anesthesia Evaluation ASA/CMS Post Anesthesia VS in Patient's Normal Range?: Yes Resp Stable; Airway Patent?: Yes CV Function & Hydration Stable: Yes Mental Status Recovered?: Yes Pain control Satisfactory?: Yes N/V Control Satisfactory?: Yes Aditya Del Toro MD Nov 11, 2016 15:47
[2016-11-11] MEDS ORDERED: Hydrocortisone 50 mg/mL 2 mL Inj IVPUSH SCH (16:30)
--- NOTE | 2016-11-11 16:31 | NUR ---
Pain/skin/tubefeed Pt back from endoscopic procedure. c/o 04/13 pain. Administered 1.5mg of IV Dilaudid, with some relief. Pt requested additional 0.5 mg of IV Dilaudid within 30 minutes of initial dosing, stating that she still had pain. 0.5mg of Dilaudid was administered with relief. Pt able to work with PT to perform bed exercises. Dressing of Kerlex and abd pad changed on pt left forearm due to weeping edema. Tube feed restarted post endoscopic procedure. Pt tolerating well with no signs or symptoms of discomfort. Per MD orders pt is on general diet and is encouraged to eat as tolerated.
[2016-11-11] MEDS: Ondansetron 2 mg/mL 2 mL Inj IVPUSH PRN (21:48)
[2016-11-12] VITALS (7 sets, daily range): BP systolic 116–129; BP diastolic 80–92; PULSE 66–99; RESP 16–20; O2SAT 95–97
[2016-11-12] MEDS: 0.9% Sodium Chloride 1,000 ML IV SCH ×5 (01:00→21:22)
[2016-11-12] MEDS: HYDROmorphone 1 mg/mL Inj IVPUSH PRN ×7 (02:57→23:46)
[2016-11-12 04:57] LABS: Magnesium 2.4 mg/dL (1.6-2.6); Phosphorus 2.5 mg/dL (2.5-4.9)
[2016-11-12 06:15] LABS: BASOPHILS % (AUTO) 0.1 % (0-3); EOSINOPHILS % (AUTO) 0 % (0-5); MONOCYTES % (AUTO) 4.8 % (4-12); Mean Corpuscular Hemoglobin 25.4 pg (27.0-35.0); Mean Corpuscular Volume 81.8 fL (81-100); NEUTROPHILS % (AUTO) 80.2 % (40-74); Platelet Count 159 bil/L (150-400)
--- NOTE | 2016-11-12 07:15 | NUR ---
Pain/Anxiety Pt c/o abdominal pain and headache3-04/13. Pt has PRN 1-2mg IVP Dilaudid ordered Q3. Administered 2mg IVP Dilaudid x3 this shift and effective for pain relief. Pt also asking for anti anxiety medication around 05, notified and orders for home Diazepam were given. Administered 1mg and no further complaints.
[2016-11-12] MEDS: predniSONE 20 mg Tablet PO SCH (10:06)
--- NOTE | 2016-11-12 10:33 | NUR ---
Social Work: Continued Discharge Planning Sanitation Technician met with patient at bedside to discuss discharge planning. SW notified patient that PT was recommending SNF and patient voiced understanding. SW worker provided the patient with a list of SNF. Patient was in agreement with discharging SNF, but requested some time to review the SNF list. SW will follow-up with patient tomorrow for SNF choice. Plan: It is likely that patient will discharge to SNF once she chooses a facility. SW will follow-up with patient on tomorrow for choice. Brook Cassidy, KEMI, ACM
--- NOTE | 2016-11-12 11:53 | PCM.PNMED ---
Subjective Date of Service Nov 12, 2016 Subjective Overnight: Some pain and anxiety reported. Resolved with scheduled/prn medications. Today: States she is fatigued. Abdominal pain continues, but is tolerable at this time with current medications. Tolerating tube feeds and po intake well thus far. Continues to endorse weakness. Denies fever, chills, nausea, vomiting. Labs: Na 127, Ca 6.9, albu 0.9; calcium correction 9.4 Exam Vital Signs Vital Sign - Last Date Time Temp Pulse Resp B/P Pulse Ox O2 Delivery O2 Flow Rate FiO2 11/12/16 10:56 66 11/12/16 09:59 36.7 16 118/92 97 Room Air 11/08/16 12:16 3.00 Intake and Output 11/11/16 11/11/16 11/12/16 Cumulative From/Thru 14:59 22:59 06:59 11/06/16 10:38 - 11/12/16 06:16 Intake Total 600 ml 740 ml 200 ml 27697 ml Output Total 350 ml 200 ml 6185 ml Balance 600 ml 390 ml 0 ml 04134 ml Intake Oral 400 ml 200 ml 6544 ml IV Total 600 ml 69180 ml Tube Feeding 179 ml 294 ml Tube Irrigant 161 ml 281 ml Output Urine Total 350 ml 100 ml 4350 ml Stool Total 100 ml 1835 ml Exam General: Frail, extremely thin woman, no acute distress; resting supine in bed HENT: Atraumatic; cushinoid-facies; mucus membranes moist; NGT in place and secured Neck: No pain with ROM, trachea midline Cardiac: Accentuated sounds secondary to habitus, no murmurs appreciated; regular rate and rhythm Respiratory: Adequate air flow all castillo; no coarse sounds appreciated Abdomen: Ileostomy in place; no distention; mild pain with palpation Extremities: BL feet edematous and continues to be reported to be tender to palpation; right ankle wrapped for weeping Skin: Warm and dry Neuro: CNII-XII grossly intact; no facial asymmetry; normal speech Psych: Appropriate mood, affect, and responses to questioning; good insight and judgment IVs and Medications Medications Reviewed: Medications were reviewed in detail Medications Current Medications Fondaparinux 5 mg 5 mg HS SUBQ Last administered on 11/11/16t 20:18; Admin Dose 5 MG; Start 11/11/16 at 21:00 Lactated Ringer's 1,000 ml @ 120 mls/hr [id number] IV; Start 11/11/16 at 10:07; Stop 11/11/16 at 18:06; Status DC Ondansetron HCl 4-8 mg IV every 4 hours ... Q4H PRN IVPUSH; Start 11/11/16 at 10 :10 Hydrocortisone Sodium Succinate 100 mg Q8 IVPUSH Last administered on 11/11/16 17:13; Admin Dose 100 MG; Start 11/11/16 at 16:30; Stop 11/11/16 at 18:00; Status DC Prednisone 20 mg DAILY PO Last administered on 11/12/16 10:06; Admin Dose 20 MG ; Start 11/12/16 at 08:30 Diazepam 1 mg 1 mg TID PRN PO Last administered on 11/12/16 06:32; Admin Dose 1 MG; Start 11/12/16 at 06:20 Sodium Chloride 1,000 ml @ 75 mls/hr [id number] IV; Start 11/12/16 at 10:05 Lab and Diagnostics Result Diagram: 11/12/16 0605 11/12/16 0420 X-Rays, CTs and MRIs Chest x-ray before and after right IJ central line is unremarkable. Assessment & Plan Ms. Terra Beauchamp is a pleasant 31 year old woman that recently moved to the [facility] from with a complex history of Crohn's disease s/p ileostomy on chronic glucocorticoids with recent initiation of Humira therapy, multiple prior obstructions/near obstructions near ostomy, recurrent flares, and recent left UE DVT secondary to PICC placement for TPN, who presented to the ED with acute on chronic diffuse abdominal pain, cramping, nausea, vomiting, and progressive weakness. She was admitted for evaluation and treatment of hypovolemic shock secondary to exacerbation of Crohn's. - Hospital day 7 Acute exacerbation of Crohn's disease with ostomy stenosis, present on admission. Ongoing - Home Rx: halfway glucocorticoid with taper and Humira - GI has been consulted; appreciate time and recommendations - Colonoscopy with stoma dilation completed 11/11; final report by Dr. 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 Under therapy - Home Rx: Prednisone 20mg daily - Stress dose steroids completed: Solu-Cortef 100mg q8 - Continue home dose prednisone 20mg daily Hypocalcemia, acute, present on admission. Under evaluation and treatment - On admit: 5.7 - Correction for albumin 08: 9.4 - Monitor Hyponatremia, acute, present on admission. Ongoing - On admit: Na 123 - H/o hyponatremia in previous hospitalizations likely secondary to poor po intake - Continue to address nutritional needs and underlying etiology of n/v - NS 75 Severe protein/calorie malnutrition, chronic. Under evaluation - H/o BMI < 18.5; seen on multiple admissions - H/o TPN requirements - Nutrition following - Dobhoff in place for feedings - Likely require tube feeding at DC; not candidate for TPN - Resume tube feeds - Encourage po intake as tolerated Hypovolemic shock, acute, present on admission. Resolved - Likely secondary to decrease in po intake in days leading to admission - Currently stable Possible sepsis, acute, present on admission. Resolved - Unlikely as Dx - DC'd Zosyn Left upper extremity DVT, acute, present on admission. Under therapy - Secondary to previous PICC placement; Dx October 2016 - Fondaparinux 5mg qhs x6 mo therapy - Resumed Bilateral lower extremity edema, acute, not present on admission. Under therapy - Home Rx: Lasix 20mg daily - Monitor - Continue when appropriate Chronic pain. Managed - Long-standing issue; patient reports constant pain - Dilaudid 1-2mg IV q3h prn Weakness, acute, present on admission. Ongoing - Likely secondary to poor po intake, poor nutritional status, and repeated hospitalizations - PT to continue while hospitalized - Recs include SNF placement Microcytic, hypochromic anemia, chronic. - Likely secondary to poor nutrition, as above - Treat underlying causes - Optimize nutritional supplementation - DVT: Therapeu fondaparinux 5mg qhs - Diet: Tube feeds + po - GI: None - PRN bowel/fever/pain/antiemetic - Code: FULL CODE Dispo: Likely to remain 1-2 additional days while Gi continues to assess and nutritional plan developed. Will work with GI for nutritional and steroid plan. Will make CLIENT SERVICE SUPERVISOR aware of any nutritional needs, such as outpatient tube feeds vs TPN, when decided. At this time, tube feeding will likely be required. PT recommending SNF, which may be an optimal choice to promote adequate nutrition and continued physical therapy to regain and maintain strength. Curious if HH with PT and nutrition would be an option for her, she has home support. Pain Evaluation: Adequate Pain Control GI Prophylaxis: Not indicated VTE Prophylaxis: Sub-Q Fondaparinux VTE Mechanical Devices: Intermittant Pneumatic CD Resuscitation Status: CPR: Attempt Resuscitation Attending Statement The patient was seen and examined together with Dr. Arteaga on 11/12/16 and I agree with the history, exam and plan as outlined in the note above. Patient currently has good solid ostomy output and this may signify that the patient is absorbing the tube feedings. If this is the case the patient may be a good candidate for a possible peg tube placement. Will continue to discuss with GI and appreciate their recommendations Elissa Arteaga DO Nov 12, 2016 11:09 Trena Lauren DO Nov 12, 2016 13:39
[2016-11-12] MEDS ORDERED: Furosemide 10 mg/mL 4 mL Inj IVPUSH ONE (11:55)
[2016-11-12] MEDS: Benzocaine-Menthol Lozenge 2/Pkg PO PRN (13:10)
--- NOTE | 2016-11-12 14:01 | NUR ---
NUTRITION FOLLOW UP Assess: 31 yo F w/ sepsis, dehydration, and Crohns. Pt w/ multiple recent admissions. Her wt is up since last admission. Pt's mom feels the wt loss is mostly fluids. NG tube placed on 11/09. TF started on 11/10 but was stopped at night for stoma dilation in the morning of 11/11. TF resumed after endoscopic procedure on 11/11, around 16:30. Pt seems to be tolerating TF well, and is encouraged to continue eating and drinking. Pt is still experiencing throat irritation from NG tube. PMHx: Crohns, DVT, Steroid dependence, PE. LABS: Na 127, Gluc 128, Ca 6.9, Alk Phos 253, Alb 0.9 MEDICATIONS: Reviewed. CURRENT DIET: General No PO recorded since procedure. NUTRITION SUPPORT: TF of Vital 1.5 @ 10 ml/hr for 24 hrs GI symptoms/stool: 100 ml via ileostomy 11/12 SKIN: Wilfrido 17 - Puncture wound to right arm noted, edema in right thigh ANTHROPOMETRICS: Current Wt: 56 kg (likely fluid) BMI: 20.5 kg/m2 Admit Wt: 47.3 kg Admit BMI: 17.4 kg/m2 IBW: 56.8 kg Recent wt changes: Wt loss ESTIMATED NEEDS: Calories: 9521-7723 kcal/d (30-35 kcal/kg/d Admit Wt) Protein: 70-85 g/d (1.2-1.5 g/kg/d IBW) Fluids: 4431-6966 ml/d (1 ml/kcal/d) NUTRITION DIAGNOSIS: 1) Severe malnutrition related to GI abnormalities as evidenced by malabsorption, inability to meet 75% of est needs for 1+ months, BMI <18.5 kg/m2, and loss of LBM and subcutaneous fat.---IMPROVED W/ TRICKLE TF STARTED AND TOLERATED WELL SOME PO INTAKE INTERVENTION: 1) Recommend advancing TF of Vital 1.5 by 10 ml q 8 hrs to goal rate of 40 ml/hr to provide 1380 kcal and 63 g protein, meeting 100% of calorie and 90% protein needs. New orders placed in chart. 2) Goal rate may need to be adjusted based on oral intake. 3) Flush w/ 40 ml q 4 hrs. Pt is receiving 20 ml of IV fluid q 1 hr for a total fluid intake of 1422 ml of H2O per day. MONITOR/EVALUATE: TF kaylen/adv, labs, wt, GI, nutrition status, POC. Will follow per high nutrition risk guidelines. Addendum: 11/12/16 at [address] Student documentation reviewed and I agree with the above assessment. Nelly Kapoor, MS, RDN, CD
--- NOTE | 2016-11-12 19:31 | NUR ---
Pain/Ambulation Patient alert and oriented x3, no reports of n/v/d/c, chronic abdominal pain patient reports at 03/14. Dilaudid 2mg IV given Q3 hours, patient pain would decrease to 3-4 which she reports as tolerable. Patient did not get OOB throughout shift. Per report, patient and patient family she is very weak. Legs elevated, bed mobility encouraged -- patient verbalized understanding. PT following. All vital signs within normal limits, dressings on left arm/hip and right ankle C/D/I -- per report patient weeping fluid from these areas. Taylor patent and draining pale noah urine to gravity. NG currently running at 10mls per hour with 40ml Q4 flush.
--- NOTE | 2016-11-12 23:13 | PROG NOTE ---
[address] [address] PROGRESS NOTE PATIENT: MAE FELIZ : 1985 MR#: [id number] ADMIT: 11/06/2016 JOB ID: [id number] DATE: 11/12/2016 SUBJECTIVE: The patient has noticed a marked improvement in stoma output following the dilatation yesterday. She is back on tube feeds and trying to eat in addition to the tube feeds. She finds this difficult in that she is just not hungry while the tube feeds are going in continuously. OBJECTIVE: Vital signs are stable. Patient in no distress. Alert, oriented, appropriate, cooperative, conversational. LABORATORY DATA: White count 7.5, hemoglobin 8.8, platelets 159. Calcium still low at 6.9. Alk phos 253. Albumin is 0.9. Protein 3.4. Rest of her liver chemistries are normal. Sodium was 127, potassium 4.3, chloride 99, bicarb 22, BUN 16, creatinine 0.71, glucose 128. ASSESSMENT AND RECOMMENDATIONS: This is a 31-year-old female with complex Crohn's that has been complicated by severe stoma stenosis. I suspect she had obstructive symptoms which precluded her from properly absorbing her prednisone and probably presented with an element of adrenal insufficiency. She is back on tube feeds and also taking p.o.'s. I encouraged her to make sure that any food presented to her that requires chewing is done so quite extensively. Any particle size that is swallowed definitely needs to be small enough to get through the narrowed opening of the stoma site. I would leave her hyponatremia and hypocalcemia workup and management to her primary service. She remains back on the fondaparinux and has not had any apparent bleeding complication following the dilatation yesterday. I will continue to follow with you.
[2016-11-13] VITALS (7 sets, daily range): BP systolic 113–126; BP diastolic 75–90; PULSE 83–98; RESP 16–18; O2SAT 91–95
[2016-11-13] MEDS ORDERED: diphenhydrAMINE 25 mg Capsule PO PRN (01:05)
[2016-11-13] MEDS: HYDROmorphone 1 mg/mL Inj IVPUSH PRN ×5 (05:07→20:00)
[2016-11-13 06:33] LABS: BASOPHILS % (AUTO) 0.1 % (0-3); EOSINOPHILS % (AUTO) 0.1 % (0-5); MONOCYTES % (AUTO) 6.3 % (4-12); Mean Corpuscular Hemoglobin 24.8 pg (27.0-35.0); Mean Corpuscular Volume 83.1 fL (81-100); NEUTROPHILS % (AUTO) 71.3 % (40-74); Platelet Count 172 bil/L (150-400)
--- NOTE | 2016-11-13 06:35 | NUR ---
Anxiety Pt c/o difficulty breathing and severe anxiety that was not relieved by 1mg Valium PO. MD was notified and another 1mg Valium PO was ordered as a one time dose for a total of 2mg Valium PO. Still waiting to see if the 2mg dosing will help to alleviate pt's anxiety. Pt was also restless and unable to sleep r/t her anxiety level. Pt also requested some tomato soup and then c/o extreme itching after eating the soup. MD was notified and Benadryl 25mg PO was ordered for itching. Pt says that the itching has subsided some since taking the Benadryl.
[2016-11-13] MEDS: predniSONE 20 mg Tablet PO SCH (08:08)
[2016-11-13] MEDS: 0.9% Sodium Chloride 1,000 ML IV SCH ×3 (08:09→17:00)
--- NOTE | 2016-11-13 12:53 | NUR ---
Anxiety Pt super anxious this am at assessment time. MD made aware and ordered Ativan .5mg IV push, along with giving her her already ordered Valium 1mg TID. PT stated that it seemed to help but still feeling slightly anxious.
--- NOTE | 2016-11-13 15:28 | PCM.PNMED ---
Subjective Date of Service Nov 13, 2016 Subjective Overnight: Reported anxiety; no acute events. Today: States that she is tolerating the tube feeds and po intake well. Endorses back pain and anxiety. Has not yet worked with PT for the day, nor has she been up to the chair. She is concerned about SNF residency, and would prefer to return home with nursing services if she needs additional care. Denies fever, chills, nausea, vomiting. States she also feels tired, and has not slept well. Exam Vital Signs Vital Sign - Last Date Time Temp Pulse Resp B/P Pulse Ox O2 Delivery O2 Flow Rate FiO2 11/13/16 08:38 36.6 83 16 116/90 93 Room Air 11/08/16 12:16 3.00 Intake and Output 11/12/16 11/12/16 11/13/16 Cumulative From/Thru 15:00 23:00 07:00 11/06/16 10:38 - 11/13/16 06:42 Intake Total 1330 ml 2310 ml 85571 ml Output Total 1950 ml 750 ml 8885 ml Balance -620 ml 1560 ml 87005 ml Intake Oral 1050 ml 600 ml 8194 ml IV Total 1430 ml 39078 ml Tube Feeding 120 ml 160 ml 574 ml Tube Irrigant 160 ml 120 ml 561 ml Output Urine Total 1750 ml 650 ml 6750 ml Stool Total 200 ml 100 ml 2135 ml Exam General: Frail, extremely thin woman, no acute distress; resting supine in bed HENT: Atraumatic; cushinoid-facies; mucus membranes moist; NGT in place and secured Neck: No pain with ROM, trachea midline Cardiac: Accentuated sounds secondary to habitus, no murmurs appreciated; regular rate and rhythm Respiratory: Adequate air flow all castillo; no coarse sounds appreciated Abdomen: Ileostomy in place; no distention; mild pain with palpation; output brown and more formed compared to previous output Extremities: BL feet edematous and continues to be reported to be mildly tender to palpation Skin: Warm and dry Neuro: CNII-XII grossly intact; no facial asymmetry; normal speech Psych: Appropriate mood, affect, and responses to questioning; good insight and judgment IVs and Medications Medications Reviewed: Medications were reviewed in detail Medications Current Medications Fondaparinux 5 mg HS SUBQ Last administered on 11/12/16t 21:22; Admin Dose 5 MG; Start 11/11/16 at 21:00 Prednisone 20 mg DAILY PO Last administered on 11/13/16 08:08; Admin Dose 20 MG ; Start 11/12/16 at 08:30 Diazepam 1 mg 1 mg TID PRN PO Last administered on 11/13/16 12:11; Admin Dose 1 MG; Start 11/12/16 at 06:20 Sodium Chloride 1,000 ml @ 75 mls/hr [id number] IV Last administered on 11/12/16 21:22; Admin Dose 75 MLS/HR; Start 11/12/16 at 10:05 Diphenhydramine HCl 25 mg Q6H PRN PO Last administered on 11/13/16 01:24; Admin Dose 25 MG; Start 11/13/16 at 01:05 Lab and Diagnostics Result Diagram: 11/13/16 0625 11/13/16 0625 X-Rays, CTs and MRIs Chest x-ray before and after right IJ central line is unremarkable. Assessment & Plan Ms. Terra Beauchamp is a pleasant 31 year old woman that recently moved to the [facility] from with a complex history of Crohn's disease s/p ileostomy on chronic glucocorticoids with recent initiation of Humira therapy, multiple prior obstructions/near obstructions near ostomy, recurrent flares, and recent left UE DVT secondary to PICC placement for TPN, who presented to the ED with acute on chronic diffuse abdominal pain, cramping, nausea, vomiting, and progressive weakness. She was admitted for evaluation and treatment of hypovolemic shock secondary to exacerbation of Crohn's. - Hospital day 9 Acute exacerbation of Crohn's disease with ostomy stenosis, present on admission. Ongoing - Home Rx: shelter glucocorticoid with taper and Humira - GI has been consulted; appreciate time and recommendations - Colonoscopy with stoma dilation completed 11/11; final report by Dr. Valdez completed - Restart tube feeds, encourage po intake as tolerated - Possible return to endoscopy in one week to dilate again Suspected adrenal insufficiency secondary to shelter steroid use, acute, present on admission. Under therapy - Home Rx: Prednisone 20mg daily - Stress dose steroids completed: Solu-Cortef 100mg q8 - Continue home dose prednisone 20mg daily Hypocalcemia, acute, present on admission. Under evaluation and treatment - On admit: 5.7 - Correction for albumin 11/13: 9.2 - Monitor Hyponatremia, acute, present on admission. Ongoing with improvements - On admit: Na 123-->133 today - H/o hyponatremia in previous hospitalizations likely secondary to poor po intake - Continue to address nutritional needs and underlying etiology of n/v - NS 75 Severe protein/calorie malnutrition, chronic. Under evaluation - H/o BMI < 18.5; seen on multiple admissions - H/o TPN requirements - Nutrition following - Dobhoff in place for feedings - Likely require tube feeding at DC; not candidate for TPN - Resume tube feeds - Encourage po intake as tolerated - Consideration of PEG placement for shelter nutrition goals Hypovolemic shock, acute, present on admission. Resolved - Likely secondary to decrease in po intake in days leading to admission - Currently stable Possible sepsis, acute, present on admission. Resolved - Unlikely as Dx - DC'd Zosyn Left upper extremity DVT, acute, present on admission. Under therapy - Secondary to previous PICC placement; Dx October 2016 - Fondaparinux 5mg qhs x6 mo therapy - Resumed Bilateral lower extremity edema, acute, not present on admission. Under therapy - Home Rx: Lasix 20mg daily - Monitor - Continue when appropriate Chronic pain. Managed - Long-standing issue; patient reports constant pain - Dilaudid 1-2mg IV q3h prn Anxiety, chronic. Managed - Home Rx: Diazepam 1mg TID prn - Continued - Admin IV prn Weakness, acute, present on admission. Ongoing - Likely secondary to poor po intake, poor nutritional status, and repeated hospitalizations - PT to continue while hospitalized - Recs include SNF placement - Patient would prefer options - Encourage pt to sit up to chair > x3 daily - Encourage mobility to prevent further deconditioning - Yosi need extensive PT during stay and at DC Microcytic, hypochromic anemia, chronic. - Likely secondary to poor nutrition, as above - Treat underlying causes - Optimize nutritional supplementation - DVT: Therapeu fondaparinux 5mg qhs - Diet: Tube feeds + po - GI: None - PRN bowel/fever/pain/antiemetic - Code: FULL CODE Dispo: Likely to remain 1-2 additional days while GI continues to assess and nutritional plan developed. Will work with GI for nutritional and steroid plan. Will make SOUVENIR AND NOVELTY MAKER aware of any nutritional needs, such as outpatient tube feeds vs TPN, when decided. At this time, tube feeding will likely be required, unless we proceed with PEG. PT recommending SNF, which may be a choice to promote adequate nutrition and continued physical therapy to regain and maintain strength, but patient would much rather prefer to explore HH options. Pain Evaluation: Adequate Pain Control GI Prophylaxis: Not indicated VTE Prophylaxis: Sub-Q Fondaparinux VTE Mechanical Devices: Intermittant Pneumatic CD Resuscitation Status: CPR: Attempt Resuscitation Attending Statement The patient was seen and examined together with Dr. Arteaga on 11/13/16 and I agree with the history, exam and plan as outlined in the note above. Elissa Arteaga DO Nov 13, 2016 11:58 Trena Lauren DO Nov 13, 2016 17:03
--- NOTE | 2016-11-13 15:56 | NUR ---
NUTRITION FOLLOW UP Assess: 31 yo F w/ sepsis, dehydration, and Crohns. Pt w/ multiple recent admissions. Her wt is up since last admission. Pt's mom feels the wt loss is mostly fluids. NG tube placed on 11/09. TF advancing towards goal rate, but states not feeling hungry w/ continuous TF. GI encouraged pt to chew each bite extensively to help w/ absorption. Per GI, stoma output improved w/ dilation yesterday. PMHx: Crohns, DVT, Steroid dependence, PE. LABS: Na 133, Boiler Service Technician 0.39, Gluc 109, Ca 6.7, Phos 2.0, Alk Phos 253, Alb 0.9 MEDICATIONS: Reviewed. CURRENT DIET: General - PO Refused NUTRITION SUPPORT: TF of Vital 1.5 @ 30 ml/hr providing 1035 kcal and 47g protein (73% of kcal needs, 67% protein needs) GI symptoms/stool: 100 ml via ileostomy 11/13 SKIN: Wilfrido 17 ANTHROPOMETRICS: Current Wt: 56 kg (likely fluid) BMI: 20.5 kg/m2 Admit Wt: 47.3 kg Admit BMI: 17.4 kg/m2 IBW: 56.8 kg Recent wt changes: Wt loss ESTIMATED NEEDS: Calories: 7326-0388 kcal/d (30-35 kcal/kg/d Admit Wt) Protein: 70-85 g/d (1.2-1.5 g/kg/d IBW) Fluids: 8590-3915 ml/d (1 ml/kcal/d) NUTRITION DIAGNOSIS: 1) Severe malnutrition related to GI abnormalities as evidenced by malabsorption, inability to meet 75% of est needs for 1+ months, BMI <18.5 kg/m2, and loss of LBM and subcutaneous fat.---IMPROVED W/ TF ADVANCING TOWARD GOAL RATE INTERVENTION: 1) Recommend holding TF of Vital 1.5 at 30 ml/hr to provide 1035 kcal and 47 g protein, meeting 73% of calorie and 67% protein needs, w/ the goal of increasing PO intake. 2) Goal rate may need to be adjusted based on oral intake. 3) Flush w/ 30 ml q 4 hrs. Pt is receiving 100 ml of IV fluid q 1 hr for a total fluid intake of 2580 ml of H2O per day. MONITOR/EVALUATE: TF tolerance, PO intake, labs, wt, GI, nutrition status, POC. Will follow per high nutrition risk guidelines. Addendum: 11/13/16 at [address] Student documentation reviewed and I agree with the above assessment. Nelly Kapoor, MS, RDN, CD
[2016-11-13] MEDS ORDERED: PREDNISOLONE ACETATE 1% LEFT_EYE SCH (16:30)
--- NOTE | 2016-11-13 17:00 | PCM.PROC ---
Procedure Note Procedure: Procedure: Osteopathic Manipulative Treatment Subjective: Patient has been complaining of back pain most likely secondary to deconditioning. Patient states that she has lower back pain on the right and describes the pain as constant and achy. Risks and benefits of OMT were explained to the patient and verbal consent obtained. Osteopathic Structural Exam: Thoracics: Paraspinal hypertonicity on the right T5 to T10 Lumbars: Paraspinal hypertonicity on the right L2 to L5 Ribs: Inhaled ribs 5 through 7 on the right Pelvis: Anterior right innominate Sacrum: Right SI joint compression Upper extremities: Right latissimus dorsi hypertonicity Lower extremities: Right psoas hypertonicity Patient responded well to treatment and stated that she felt that her pain was improved. Osteopathic treatment modalities used: Myofascial release, Muscle Energy, BLT, rib raising, and soft tissue technique Trena Lauren DO Nov 13, 2016 17:00
[2016-11-13] MEDS ORDERED: Calcium GLUCO 10% (Gm) 1 Gm/10 mL 50 mL Inj IV ONE (17:15)
--- NOTE | 2016-11-13 17:32 | NUR ---
Wound Care Pt seen for reassessment of iliostomy site. Ostomy appliance removed and new convex Coloplast one piece was placed over top of a Keerthi ring. Peristomal skin is slightly excoriated at 6 o'clock, stoma remains flat if not slightly retracted. Will follow as needed.
[2016-11-13] MEDS ORDERED: Calcium GLUCOnate 10% 1 Gm/50 mL NS IV ONE ×2 (17:45)
[2016-11-13] MEDS ORDERED: KETOROLAC TROMETHAMINE 0.5% LEFT_EYE SCH (17:45)
--- NOTE | 2016-11-13 23:01 | PROG NOTE ---
[address] [address] PROGRESS NOTE PATIENT: MAE FELIZ : 1985 MR#: [id number] ADMIT: 11/06/2016 JOB ID: [id number] DATE: 11/13/2016 SUBJECTIVE: The patient had a severe anxiety attack this morning. She is not exactly sure what happened and why this happened but does note she is getting very little sleep and really has minimal sleep in the last 48 hours. Other than that, she has been on tube feeds, has not really eaten a whole lot beyond the tube feeds. She is hoping that her mom will be bringing her in something a little more appetizing. She has not had any nausea or vomiting and continues to have good flow through her stoma. No report of any bleeding. OBJECTIVE: Vital signs are stable. Patient still has anasarca. Tube feeds are running. She was not in as good spirits as she normally has been this afternoon. LABORATORY DATA: White count is 8.5, hemoglobin 8.2, platelets 172. Sodium is up to 133, potassium 3.5, chloride 102, bicarb 25, BUN 11, creatinine 0.39. Glucose 109. Calcium is still low at 6.7. Phosphorus 2.0. Magnesium 2.0. Liver tests were not done today. ASSESSMENT AND RECOMMENDATION: This is a 31-year-old female with complex Crohn's. At this point, nutrition is perhaps the most important aspect of her ongoing care. I would recommend we follow daily liver tests. Her hypoalbuminemia is the source for her anasarca and hopefully this will start to turn around with improved nutrition. She remains on the fondaparinux for her DVT and bilateral pulmonary emboli. Steroid dose has been reduced to 20 mg, and I think that is just fine. Electrolyte repletion I would leave to the discretion of her primary service. I have encouraged the patient to make every effort to rest and get some sleep. In the short term, the likes of a dose or two of Valium may go a long way here.
[2016-11-14] MEDS: HYDROmorphone 1 mg/mL Inj IVPUSH PRN ×7 (00:15→22:41)
[2016-11-14] MEDS: 0.9% Sodium Chloride 1,000 ML IV SCH ×2 (00:22→15:24)
--- NOTE | 2016-11-14 03:46 | NUR ---
Anxiety/Skin/Feeding Pt has not c/o anxiety during the shift and has been able to get some sleep with her mom in the room. Pt's skin continues to weep on the right medial lower leg and the left thigh. New chux pads have been placed under pt and both legs are elevated on pillows to help decrease the swelling in the pt's feet and ankles. Pt's lower left leg and ankle appear to be more swollen then the right. Will continue to monitor pt's skin. Pt has requested to be turned Q4H and repositioned with pillows. Pt's PO intake has slightly increased but her satiety quickly follows after pt takes only a few bites of food. Pt's tube feed is currently at the goal rate of 30ml/hr with 30ml flushes Q4H and pt continues to tolerate this rate. Pt's HOB is at minimum of 30 degrees at all times.
[2016-11-14 04:25] VITALS: BP 116/83; PULSE 94; RESP 16; O2SAT 91
[2016-11-14 04:57] LABS: BASOPHILS % (AUTO) 0.1 % (0-3); EOSINOPHILS % (AUTO) 0.3 % (0-5); MONOCYTES % (AUTO) 6.1 % (4-12); Mean Corpuscular Hemoglobin 25.2 pg (27.0-35.0); Mean Corpuscular Volume 84.7 fL (81-100); NEUTROPHILS % (AUTO) 65.3 % (40-74); Platelet Count 116 bil/L (150-400)
[2016-11-14 05:18] LABS: INR 1.01 ratio
[2016-11-14 05:28] LABS: Bilirubin, Direct 0.2 mg/dL (0.0-0.3); Magnesium 1.8 mg/dL (1.6-2.6); Phosphorus 1.7 mg/dL (2.5-4.9)
[2016-11-14] MEDS ORDERED: Calcium GLUCO 10% (Gm) 1 Gm/10 mL 50 mL Inj IV ONE (06:40)
[2016-11-14] MEDS ORDERED: Calcium GLUCO 10% (Gm) Inj 2 GM in Dextrose 5% 100 ML IV ONE (07:10)
[2016-11-14 08:00] VITALS: PULSE 94
[2016-11-14] MEDS: predniSONE 20 mg Tablet PO SCH (08:00)
[2016-11-14 09:00] VITALS: BP 120/81; PULSE 91; RESP 18; O2SAT 95
[2016-11-14 12:13] VITALS: BP 115/80; PULSE 94; RESP 18; O2SAT 96
--- NOTE | 2016-11-14 13:51 | PCM.PNMED ---
Subjective Date of Service Nov 14, 2016 Subjective Overnight: Continued anxiety. Today: Looks much improved. States that she still feels weak, but improved. She is tolerating po + tube feeds well at this point. Continues to report that she feels extremely weak, and her legs feel heavy. Family present in room. Questions and concerns addressed. Family and patient continue to wish that she return home rather than SNF for continued rehab, PT, and nutrition needs. Exam Vital Signs Vital Sign - Last Date Time Temp Pulse Resp B/P Pulse Ox O2 Delivery O2 Flow Rate FiO2 11/14/16 11:04 Room Air 11/14/16 09:00 36.9 91 18 120/81 95 11/08/16 12:16 3.00 Intake and Output 11/13/16 11/13/16 11/14/16 Cumulative From/Thru 14:59 22:59 06:59 11/06/16 10:38 - 11/14/16 05:16 Intake Total 2297 ml 1641 ml 61903 ml Output Total 900 ml 1600 ml 07615 ml Balance 1397 ml 41 ml 73387 ml Intake Oral 1036 ml 300 ml 9530 ml IV Total 905 ml 892 ml 42678 ml Tube Feeding 276 ml 394 ml 1244 ml Tube Irrigant 80 ml 55 ml 696 ml Output Urine Total 500 ml 1050 ml 8300 ml Stool Total 400 ml 550 ml 3085 ml Exam General: Frail, extremely thin woman, no acute distress; resting supine in bed HENT: Atraumatic; cushinoid-facies; mucus membranes moist; NGT in place and secured Neck: No pain with ROM, trachea midline Cardiac: Accentuated sounds secondary to habitus, regular rate and rhythm Respiratory: Adequate air flow all castillo; no coarse sounds appreciated Abdomen: Ileostomy in place; no distention; mild pain with palpation; output liquid/green Extremities: BL feet edematous and continues to be reported to be mildly tender to palpation; no edema legs Skin: Warm and dry Neuro: CNII-XII grossly intact; no facial asymmetry; normal speech Psych: Appropriate mood, affect, and responses to questioning; good insight and judgment Lab and Diagnostics Result Diagram: 11/14/16 0430 11/14/16 0430 X-Rays, CTs and MRIs Chest x-ray before and after right IJ central line is unremarkable. Assessment & Plan Ms. Terra Beauchamp is a pleasant 31 year old woman that recently moved to the [facility] from with a complex history of Crohn's disease s/p ileostomy on chronic glucocorticoids with recent initiation of Humira therapy, multiple prior obstructions/near obstructions near ostomy, recurrent flares, and recent left UE DVT secondary to PICC placement for TPN, who presented to the ED with acute on chronic diffuse abdominal pain, cramping, nausea, vomiting, and progressive weakness. She was admitted for evaluation and treatment of hypovolemic shock secondary to exacerbation of Crohn's. - Hospital day 10 Acute exacerbation of Crohn's disease with ostomy stenosis, present on admission. Ongoing - Home Rx: retirement glucocorticoid with taper and Humira - GI has been consulted; appreciate time and recommendations - Colonoscopy with stoma dilation completed 11/11; final report by Dr. Valdez completed - Restart tube feeds, encourage po intake as tolerated - Possible return to endoscopy in one week to dilate again - 11/14: Humira 40mg SQ x1 Suspected adrenal insufficiency secondary to retirement steroid use, acute, present on admission. Under therapy - Home Rx: Prednisone 20mg daily - Stress dose steroids completed: Solu-Cortef 100mg q8 - Continue home dose prednisone 20mg daily Hypocalcemia, acute, present on admission. Under evaluation and treatment - On admit: 5.7 - Correction for albumin 11/14: 8.4 - Given Ca-gluco overnight - Monitor Hyponatremia, acute, present on admission. Ongoing with improvements - On admit: Na 123-->133 today - H/o hyponatremia in previous hospitalizations likely secondary to poor po intake - Continue to address nutritional needs and underlying etiology of n/v - NS 75 Severe protein/calorie malnutrition, chronic. Under evaluation - H/o BMI < 18.5; seen on multiple admissions - H/o TPN requirements - Nutrition following - Dobhoff in place for feedings - Likely require tube feeding via Dobhoff at [place]; not candidate for TPN - Resume tube feeds - Encourage po intake as tolerated - Discussed possibility of PEG with GI: NOT recommended - Dobhoff to ideally remain x4 weeks with continued nutrition - Encourage high quality po intake Hypovolemic shock, acute, present on admission. Resolved - Likely secondary to decrease in po intake in days leading to admission - Currently stable Possible sepsis, acute, present on admission. Resolved - Unlikely as Dx - DC'd Zosyn Left upper extremity DVT, acute, present on admission. Under therapy - Secondary to previous PICC placement; Dx October 2016 - Fondaparinux 5mg qhs x6 mo therapy - Resumed Bilateral lower extremity edema, acute, not present on admission. Under therapy - Home Rx: Lasix 20mg daily - Monitor - Continue when appropriate Chronic pain. Managed - Long-standing issue; patient reports constant pain - Dilaudid 1-2mg IV q3h prn Anxiety, chronic. Managed - Home Rx: Diazepam 1mg TID prn - Changed to lorazepam - Admin IV prn Weakness, acute, present on admission. Ongoing - Likely secondary to poor po intake, poor nutritional status, and repeated hospitalizations - PT to continue while hospitalized - Recs include SNF placement - Patient would prefer HH options - Encourage pt to sit up to chair > x3 daily - Encourage mobility to prevent further deconditioning - Will need extensive PT during stay and at DC Microcytic, hypochromic anemia, chronic. - Likely secondary to poor nutrition, as above - Treat underlying causes - Optimize nutritional supplementation - DVT: Therapeu fondaparinux 5mg qhs - Diet: Tube feeds + po - GI: None - PRN bowel/fever/pain/antiemetic - Code: FULL CODE Dispo: Likely to remain 1-2 additional days while GI continues to assess and nutritional plan developed. Will work with GI for nutritional and steroid plan. Will make [employer] aware of any nutritional needs, such as outpatient tube feeds vs TPN, when decided. At this time, tube feeding via Dobhoff recommended x4 weeks minimum. PT recommending SNF, which may be a choice to promote adequate nutrition and continued physical therapy to regain and maintain strength, but patient would much rather prefer to explore HH options. Foot pump will assist in minimize static fluid, as will increased mobility. Discussion with GI included topic of PEG placement. Patient is not ideal candidate for PEG, and PEG may be more detrimental than beneficial. Hopefully, she can tolerate the Dobhoff for at least 4 weeks to maintain nutrition, with goal to DC as soon as safely possible once she has nutritional stores replenished. Pain Evaluation: Adequate Pain Control GI Prophylaxis: Not indicated VTE Prophylaxis: Sub-Q Fondaparinux VTE Mechanical Devices: Intermittant Pneumatic CD Resuscitation Status: CPR: Attempt Resuscitation Attending Statement The patient was seen and examined together with Dr. Arteaga on 11/14/16 I agree with the history, exam and plan as outlined in the note above. Elissa Arteaga DO Nov 14, 2016 11:52 Trena Lauren DO Nov 14, 2016 14:30
[2016-11-14] MEDS ORDERED: ADALIMUMAB 40 MG/0.8 ML SUBQ SCH (14:25)
--- NOTE | 2016-11-14 14:47 | NUR ---
NUTRITION FOLLOW UP Assess: 31 yo F w/ sepsis, dehydration, and Crohns. Pt w/ multiple recent admissions. Her wt is up since last admission. Pt's mom feels the wt loss is mostly fluids. NG tube placed on 11/09. Pt tolerating TF at goal rate (~75% of est needs). PO intake has been variable. Pt states that she has been eating lots of [place] food. She denies any nausea or GI pain w/ the tube feedings but does have GI pain after she eats solid foods, similar to what she was experiencing prior to admission. Pt also states that she feels puffy and finds it difficult to mobilize. Pt not a candidate for TPN or PEG and will continue with DobHoff. PMHx: Crohns, DVT, Steroid dependence, PE. LABS: Cr <0.30, Phos 1.7, ALT 37, Alk phos 293, Albumin 1.2 MEDICATIONS: Reviewed. Prednisone CURRENT DIET: General - PO Refused-100% NUTRITION SUPPORT: TF of Vital 1.5 @ 30 ml/hr providing 1035 kcal and 47g protein (73% of kcal needs, 67% protein needs) GI symptoms/stool: 500 ml via ileostomy 11/13 SKIN: [place] 17 ANTHROPOMETRICS: Current Wt: 55.5 kg BMI: 20.4 kg/m2 Admit Wt: 47.3 kg Admit BMI: 17.4 kg/m2 IBW: 56.8 kg Recent wt changes: Wt loss ESTIMATED NEEDS: Calories: 9381-1720 kcal/d (30-35 kcal/kg/d Admit Wt) Protein: 70-85 g/d (1.2-1.5 g/kg/d IBW) Fluids: 0638-8992 ml/d (1 ml/kcal/d) NUTRITION DIAGNOSIS: 1) Severe malnutrition related to GI abnormalities as evidenced by malabsorption, inability to meet 75% of est needs for 1+ months, BMI <18.5 kg/m2, and loss of LBM and subcutaneous fat.---IMPROVED, pt eating and on TF INTERVENTION: 1) Recommend continuing TF of Vital 1.5 at 30 ml/hr to provide 1035 kcal and 47 g protein, meeting 73% of calorie and 67% protein needs, w/ the goal of increasing PO intake. 2) Goal rate may need to be adjusted based on oral intake. 3) Flush w/ 30 ml q 4 hrs. Pt drinking plenty of fluids. MONITOR/EVALUATE: TF tolerance, PO intake, labs, wt, GI, nutrition status, POC. Will follow per high nutrition risk guidelines.
[2016-11-14 15:29] VITALS: BP 128/84; PULSE 94; RESP 16; O2SAT 94
--- NOTE | 2016-11-14 17:53 | NUR ---
P: Hemodynamics, Nutrition, Pain I,E: Pt's VS are stable, afebrile, UOP adequate. Pt does not have much of an appetite, but I have been encouraging small frequent meals that focus on proteins. She is only eating about 25% of her diet. She is tolerating her tube feeds which are running at 30cc/hr. Pt complains of pain in her abdomen which is mostly relieved with dilaudid 2mg. She had complained of some anxiety this am, but has not complained of any further anxiety throughout the day. MD did change her back to PRN lorazepam which is one of her home meds, however she has not required it today as yet. Pt sat up on the edge of the bed this am for her bed bath. She worked with PT and sat up in a chair for approx 1hr. She is going to try this again this evening. She complains that her feet become more swollen as she sits in the chair and this is painful for her. She has edema from her feet to her mid abdomen, pitting edema in her feet. She complained of soreness at her coccyx and I have encouraged her to lay side to side in the bed. I did apply a mepilex to her bottom to help protect her skin. Skin is intact at this time, no redness visible. She also continues to weep from her lower extremities from small sites in her skin, no evidence of infection, just 3rd space fluid. Pt's mother will be bringing her home dose of Humira in to the hospital tomorrow for administration. MD's are aware.
--- NOTE | 2016-11-14 18:04 | PROG NOTE ---
[address] [address] PROGRESS NOTE PATIENT: MAE FELIZ : 1985 MR#: [id number] ADMIT: 11/06/2016 JOB ID: [id number] DATE: 11/14/2016 SUBJECTIVE: The patient is in better spirits today. Slept well last night. Remains on tube feeds and supplementing with a little oral nutrition. OBJECTIVE: As I said, better spirits. Vital signs stable. Still has anasarca. LABORATORY DATA: Hemoglobin 7.9. Albumin is up to 1.2. ASSESSMENT AND RECOMMENDATIONS: Complex Crohn's. Nutritionally decimated. Continue tube feeds. I would not recommend PEG tube at the moment. I suspect she is going to need probably four weeks of supplemental tube feeds and home health nursing arrangements should be provided for. The patient is due for her Humira and I agree with retrieving her supply from home and administering this today or tomorrow. I will continue to follow.
[2016-11-14 20:05] VITALS: BP 122/74; PULSE 81; RESP 16; O2SAT 98
[2016-11-15] VITALS (10 sets, daily range): BP systolic 108–139; BP diastolic 71–88; PULSE 75–101; RESP 14–20; O2SAT 93–98
[2016-11-15] MEDS: HYDROmorphone 1 mg/mL Inj IVPUSH PRN ×6 (02:20→21:06)
[2016-11-15] MEDS: 0.9% Sodium Chloride 1,000 ML IV SCH ×2 (02:26→17:41)
--- NOTE | 2016-11-15 03:12 | NUR ---
Pain/Anxiety/Rest Pt continue to have 6-7/10 pain that is made tolerable with 2mg Dilaudid. Pt asks for the pain meds approximately every 3-4 hours to keep the pain at a manageable level. Pt received melatonin this evening. Pt has not c/o anxiety and has been able to rest throughout the shift with the exception of when the pt wakes r/t her pain level increasing.
[2016-11-15 04:23] LABS: BASOPHILS % (AUTO) 0 % (0-3); EOSINOPHILS % (AUTO) 0 % (0-5); MONOCYTES % (AUTO) 10.8 % (4-12); Mean Corpuscular Hemoglobin 24.8 pg (27.0-35.0); Mean Corpuscular Volume 85.8 fL (81-100); NEUTROPHILS % (AUTO) 63.8 % (40-74); Platelet Count 204 bil/L (150-400)
[2016-11-15] MEDS: LORazepam 0.5 mg Tablet PO PRN ×2 (04:30→22:34)
[2016-11-15 04:58] LABS: Magnesium 1.7 mg/dL (1.6-2.6); Phosphorus 1.7 mg/dL (2.5-4.9)
[2016-11-15 05:38] LABS: Magnesium 1.6 mg/dL (1.6-2.6)
[2016-11-15] MEDS: predniSONE 20 mg Tablet PO SCH (07:26)
[2016-11-15 08:17] LABS: BASOPHILS % (AUTO) 0.2 % (0-3); EOSINOPHILS % (AUTO) 0 % (0-5); MONOCYTES % (AUTO) 7.7 % (4-12); Mean Corpuscular Hemoglobin 25.6 pg (27.0-35.0); Platelet Count 231 bil/L (150-400)
[2016-11-15] MEDS ORDERED: Calcium GLUCO 10% (Gm) 1 Gm/10 mL 50 mL Inj IV ONE (08:30)
[2016-11-15] MEDS ORDERED: Calcium GLUCO 10% (Gm) Inj 2 GM in 0.9% Sodium Chloride 50 ML IV ONE (08:45)
[2016-11-15] MEDS ORDERED: diphenhydrAMINE 25 mg Capsule PO ONE (12:15)
--- NOTE | 2016-11-15 13:31 | PROG NOTE ---
[address] [address] PROGRESS NOTE PATIENT: MAE FELIZ : 1985 MR#: [id number] ADMIT: 11/06/2016 JOB ID: [id number] DATE: SUBJECTIVE: The patient has been eating extra portions over and above her tube feeds and seems to be doing okay. She had a small amount of blood in her stoma bag but generally the stool remains brown and she has been passing stool through into the bag without any perceived impediment. Hemoglobin was a little lower this morning. Otherwise in good spirits and no distress. PHYSICAL EXAMINATION: Vital signs are stable. The patient is conversational. Anasarca persists. LABORATORY DATA: Hemoglobin 7.0, white count 6.5, platelets 231. Albumin 1.2, alk phos 234, ALT 35, AST 30, bilirubin 0.2. ASSESSMENT AND RECOMMENDATIONS: A 31-year-old female with complex Crohn's. I would recommend she be considered for at least 1 unit of packed RBCs. Continue aggressive nutritional support and fondaparinux for her DVT/PE. She should have received her dose of Humira today. I will continue to follow. Ultimately my sense is that she could very easily need supplemental tube feeds for up to three months or even longer. I do not feel that it would be a safe intervention at present to put a PEG tube in place.
--- NOTE | 2016-11-15 14:21 | PCM.PNMED ---
Subjective Date of Service Nov 15, 2016 Subjective Patient was seen and examined. Patient still complains of abdominal pain, but states that overall she feels that she is improving. Patient still complains of generalized weakness and LE swelling. Exam Vital Signs Vital Sign - Last Date Time Temp Pulse Resp B/P Pulse Ox O2 Delivery O2 Flow Rate FiO2 11/15/16 08:43 80 11/15/16 07:15 36.5 20 116/71 97 11/15/16 04:02 Room Air Intake and Output 11/14/16 11/14/16 11/15/16 Cumulative From/Thru 15:00 23:00 07:00 11/06/16 10:38 - 11/15/16 06:19 Intake Total 2884 ml 1517 ml 61281 ml Output Total 1450 ml 1275 ml 80891 ml Balance 1434 ml 242 ml 46639 ml Intake Oral 1300 ml 400 ml 50027 ml IV Total 1104 ml 741 ml 54198 ml Tube Feeding 360 ml 296 ml 1900 ml Tube Irrigant 120 ml 80 ml 896 ml Output Urine Total 950 ml 975 ml 07481 ml Stool Total 500 ml 300 ml 3885 ml Exam Physical Exam: GEN: Patient was awake, alert, responding appropriately to questions HEENT: PERRLA, EOMI, Neck soft supple, trachea midline, nomocephalic/atraumatic CV: +S1/S2, RRR, systolic murmurs auscultated Respiratory: CTAB, no wheezes, rales, rhonchi GI: +bowel sounds x4, soft, compressible, TTP EXT: no c/c/ +3 pitting edema in the LE bilaterally Neuro: CN II-XII grossly intact Psych: mood and affect were appropriate IVs and Medications Medications Reviewed: Medications were reviewed in detail Medications Current Medications Patient Own Medication 1 drop QID LEFT_EYE; Start 11/13/16 at 16:30; Status Cancel Patient Own Medication 1 drop QID LEFT_EYE; Start 11/13/16 at 17:45; Status Cancel Lorazepam 0.5 mg TID PRN PO Last administered on 11/15/16 04:30; Admin Dose 0.5 MG; Start 11/14/16 at 11:50 Melatonin 1 mg HS PO Last administered on 11/14/16 21:18; Admin Dose 1 MG; Start 2/10/17 at 21:00 Patient Own Medication adalimumab (HUMIRA) 40 ... ONCE SUBQ; Start 11/14/16 at 14:25 Calcium Carbonate 500 mg TIDWM PO Last administered on 11/15/16t 11:27; Admin Dose 500 MG; Start 11/15/16 at 12:00 Lab and Diagnostics Result Diagram: 11/15/16 0813 11/15/16 0430 X-Rays, CTs and MRIs Chest x-ray before and after right IJ central line is unremarkable. Assessment & Plan Ms. Terra Beauchamp is a pleasant 31 year old woman that recently moved to the [facility] from with a complex history of Crohn's disease s/p ileostomy on chronic glucocorticoids with recent initiation of Humira therapy, multiple prior obstructions/near obstructions near ostomy, recurrent flares, and recent left UE DVT secondary to PICC placement for TPN, who presented to the ED with acute on chronic diffuse abdominal pain, cramping, nausea, vomiting, and progressive weakness. She was admitted for evaluation and treatment of hypovolemic shock secondary to exacerbation of Crohn's. - Hospital day 10 Acute exacerbation of Crohn's disease with ostomy stenosis, present on admission. Ongoing - Home Rx: intermediate glucocorticoid with taper and Humira - GI has been consulted; appreciate time and recommendations - Colonoscopy with stoma dilation completed 11/11; final report by Dr. Valdez completed - Restart tube feeds, encourage po intake as tolerated - Possible return to endoscopy in one week to dilate again - 11/15: Humira 40mg SQ x1 (mother bring in home medication as the pharmacy here does not carry it) Suspected adrenal insufficiency secondary to intermediate steroid use, acute, present on admission. Under therapy - Home Rx: Prednisone 20mg daily - Stress dose steroids completed: Solu-Cortef 100mg q8 - Continue home dose prednisone 20mg daily Hypocalcemia, acute, present on admission. Under evaluation and treatment - On admit: 5.7 - Correction for albumin 11/14: 8.4 - Given Ca-gluco overnight - Monitor Hyponatremia, acute, present on admission. Ongoing with improvements - On admit: Na 123-->133 today - H/o hyponatremia in previous hospitalizations likely secondary to poor po intake - Continue to address nutritional needs and underlying etiology of n/v - NS 75 Severe protein/calorie malnutrition, chronic. Under evaluation - H/o BMI < 18.5; seen on multiple admissions - H/o TPN requirements - Nutrition following - Dobhoff in place for feedings - Likely require tube feeding via Dobhoff at [place]; not candidate for TPN - Resume tube feeds - Encourage po intake as tolerated - Discussed possibility of PEG with GI: NOT recommended - Dobhoff to ideally remain patient will possibly need tube feedings for 4 months or longer - Encourage high quality po intake Hypovolemic shock, acute, present on admission. Resolved - Likely secondary to decrease in po intake in days leading to admission - Currently stable Possible sepsis, acute, present on admission. Resolved - Unlikely as Dx - DC'd Zosyn Left upper extremity DVT, acute, present on admission. Under therapy - Secondary to previous PICC placement; Dx October 2016 - Fondaparinux 5mg qhs x6 mo therapy - Resumed Bilateral lower extremity edema, acute, not present on admission. Under therapy - Home Rx: Lasix 20mg daily - Monitor - Continue when appropriate Chronic pain. Managed - Long-standing issue; patient reports constant pain - Dilaudid 1-2mg IV q3h prn Anxiety, chronic. Managed - Home Rx: Diazepam 1mg TID prn - Changed to lorazepam - Admin IV prn Weakness, acute, present on admission. Ongoing - Likely secondary to poor po intake, poor nutritional status, and repeated hospitalizations - PT to continue while hospitalized - Recs include SNF placement - Patient would prefer options - Encourage pt to sit up to chair > x3 daily - Encourage mobility to prevent further deconditioning - Will need extensive PT during stay and at DC Microcytic, hypochromic anemia, chronic. - Likely secondary to poor nutrition, as above - Treat underlying causes - Optimize nutritional supplementation - H&H 6.8/23.5 today will transfuse 1 unit today 11/15/16 - DVT: Therapeu fondaparinux 5mg qhs - Diet: Tube feeds + po - GI: None - PRN bowel/fever/pain/antiemetic - Code: FULL CODE Dispo: Likely to remain 1-2 additional days while GI continues to assess and nutritional plan developed. Will work with GI for nutritional and steroid plan. Will make [employer]LY[employer] aware of any nutritional needs, such as outpatient tube feeds vs TPN, when decided. At this time, tube feeding via Dobhoff PT recommending SNF, which may be a choice to promote adequate nutrition and continued physical therapy to regain and maintain strength, but patient would much rather prefer to explore HH options. Foot pump will assist in minimize static fluid, as will increased mobility. Discussion with GI included topic of PEG placement. Patient is not ideal candidate for PEG, and PEG may be more detrimental than beneficial. Hopefully, she can tolerate the Dobhoff for to maintain nutrition, after discussion with GI today they also agreed that the patient may need 3 months or more of tube feeding in order for the patient to be able to maintain her nutrition status. Because the patient has been back and forth between the hospital and home due to her poor absorption she may need more than 3 months worth of tube feedings. The current goal for the patient is to DC home safely and continue her tube feedings from home. Currently the patient is still very weak and has a lot of fluid in her lower extremities. Once the patient is stable enough and it is clinically safe for the patient to be discharged home she will continue feedings at home and follow-ups with Dr. Valdez. GI Prophylaxis: Not indicated VTE Prophylaxis: Sub-Q Fondaparinux VTE Mechanical Devices: Intermittant Pneumatic CD Resuscitation Status: CPR: Attempt Resuscitation Time spent Greater than 35 minutes Trena Lauren DO Nov 15, 2016 13:15
--- NOTE | 2016-11-15 18:47 | NUR ---
Blood/Nutrition The pt received one unit of blood for a low H&H - tolerated well. The pt was up to the chair for meals, and ate between 50-75% of all meals.
[2016-11-16] VITALS (9 sets, daily range): BP systolic 106–130; BP diastolic 44–82; PULSE 65–107; RESP 16–18; O2SAT 95–98
[2016-11-16] MEDS: HYDROmorphone 1 mg/mL Inj IVPUSH PRN ×6 (03:38→21:07)
[2016-11-16 04:06] LABS: Mean Corpuscular Hemoglobin 25.3 pg (27.0-35.0); Mean Corpuscular Volume 84.2 fL (81-100)
[2016-11-16] MEDS: predniSONE 20 mg Tablet PO SCH (07:48)
[2016-11-16] MEDS: 0.9% Sodium Chloride 1,000 ML IV SCH (07:48)
[2016-11-16] MEDS: Sodium Chloride LOK Flush 10 mL Syringe IVFLUSH PRN ×3 (07:51→11:25)
[2016-11-16] MEDS: Ondansetron 2 mg/mL 2 mL Inj IVPUSH PRN (07:55)
--- NOTE | 2016-11-16 07:55 | NUR ---
Labs/Transfusion Reaction Pt's post blood component administration labs were ordered and H&H was: 8.6/28.2. Pt's AM lab draw showed H&H of 8.5/28.3. Pt did have a critical lab value reported by lab at 0500 for a calcium of 6.6 and the pt's albumin was 1.4. Pt's corrected calcium level for AM labs is 8.68 and MD was not notified due to the corrected calcium being adequate. Pt looked flushed when I came on shift and I asked pt if she felt hot and she did feel hot. When asked when the warmth began she said that it started when she got the blood transfusion. Pt remains flushed but afebrile with no c/o itching. Report was given to oncoming RN regarding this transfusion reaction.
[2016-11-16] MEDS ORDERED: Furosemide 10 mg/mL 4 mL Inj IVPUSH ONE (10:40)
--- NOTE | 2016-11-16 11:26 | PCM.PNMED ---
Subjective Date of Service Nov 16, 2016 Subjective Yesterday/Overnight: Stable, no acute events. S/p 1U pRBC Today: States she feels well, denies fever, chills, nausea, vomiting. States she has been able to work with PT well, and has been exercising in bed to improve strength. Has been tolerating po + tube feeds well. labs: Hb 8.5, stable; Ca 6.6, corrected to 8.7 with albu 1.4. Exam Vital Signs Vital Sign - Last Date Time Temp Pulse Resp B/P Pulse Ox O2 Delivery O2 Flow Rate FiO2 11/16/16 10:22 90 11/16/16 08:02 36.4 18 107/71 95 Room Air Intake and Output 11/15/16 11/15/16 11/16/16 Cumulative From/Thru 15:00 23:00 07:00 11/06/16 10:38 - 11/16/16 06:51 Intake Total 2183 ml 2784 ml 06372 ml Output Total 1050 ml 1400 ml 81321 ml Balance 1133 ml 1384 ml 03295 ml Intake Oral 525 ml 200 ml 35462 ml IV Total 1358 ml 1642 ml 92935 ml Tube Feeding 716 ml 2616 ml Packed Cells 300 ml 300 ml Tube Irrigant 226 ml 1122 ml Output Urine Total 1050 ml 1200 ml 49482 ml Stool Total 200 ml 4085 ml Exam General: Frail, extremely thin woman, no acute distress; resting supine in bed HENT: Atraumatic; cushinoid-facies; mucus membranes moist; NGT in place and secured Neck: No pain with ROM, trachea midline Cardiac: Accentuated sounds secondary to habitus, regular rate and rhythm Respiratory: Adequate air flow all castillo; no coarse sounds appreciated Abdomen: Ileostomy in place; no distention; mild pain with palpation; output liquid/green Extremities: BL feet moderately edematous and continues to be reported to be mildly tender to palpation; trace edema noted to extend BLLE Skin: Warm and dry Neuro: CNII-XII grossly intact; no facial asymmetry; normal speech Psych: Appropriate mood, affect, and responses to questioning; good insight and judgment Lab and Diagnostics Result Diagram: 11/16/16 0345 11/16/16 034 X-Rays, CTs and MRIs Chest x-ray before and after right IJ central line is unremarkable. Assessment & Plan Ms. Terra Beauchamp is a pleasant 31 year old woman that recently moved to the [facility] from with a complex history of Crohn's disease s/p ileostomy after colectomy performed at [facility] in [place], [place]. She is on chronic glucocorticoids with recent initiation of Humira therapy, multiple prior obstructions/near obstructions near ostomy, recurrent flares, and recent left UE DVT secondary to PICC placement for TPN, who presented to the ED with acute on chronic diffuse abdominal pain, cramping, nausea, vomiting, and progressive weakness. She was admitted for evaluation and treatment of hypovolemic shock secondary to exacerbation of Crohn's. - Hospital day 12 Acute exacerbation of Crohn's disease with ostomy stenosis, present on admission. Ongoing - Home Rx: [employer] glucocorticoid with taper and Humira - GI has been consulted; appreciate time and recommendations - Colonoscopy with stoma dilation completed 11/11; final report by Dr. Valdez completed - Restart tube feeds, encourage po intake as tolerated - Possible return to endoscopy 11/18-11/19; GI scheduling - 11/15: Humira 40mg SQ x1 provided Suspected adrenal insufficiency secondary to [employer] steroid use, acute, present on admission. Under therapy - Home Rx: Prednisone 20mg daily - Stress dose steroids completed: Solu-Cortef 100mg q8 - Continue home dose prednisone 20mg daily Hypocalcemia, acute, present on admission. Under evaluation and treatment - On admit: 5.7 - Correction for albumin 11/16: 8.7 - Monitor Hyponatremia, acute, present on admission. Resolved - On admit: Na 123--> improved - H/o hyponatremia in previous hospitalizations likely secondary to poor po intake - Continue to address nutritional needs and underlying etiology of n/v - No IVF at this time Severe protein/calorie malnutrition, chronic. Under evaluation - H/o BMI < 18.5; seen on multiple admissions - H/o TPN requirements - Nutrition following - Dobhoff in place for feedings - Likely require tube feeding via Dobhoff at ID; not candidate for TPN - Resume tube feeds - Encourage po intake as tolerated - Discussed possibility of PEG with GI: NOT recommended - Dobhoff to ideally remain patient will possibly need tube feedings for 3 months or longer - Encourage high quality po intake Hypovolemic shock, acute, present on admission. Resolved - Likely secondary to decrease in po intake in days leading to admission - Currently stable Possible sepsis, acute, present on admission. Resolved - Unlikely as Dx - DC'd Zosyn Left upper extremity DVT, acute, present on admission. Under therapy - Secondary to previous PICC placement; Dx October 2016 - Fondaparinux 5mg qhs x6 mo therapy - Resumed Bilateral lower extremity edema, acute, not present on admission. Under therapy - Home Rx: Lasix 20mg daily - Monitor Chronic pain. Managed - Long-standing issue; patient reports constant pain - Dilaudid 1-2mg IV q3h prn Anxiety, chronic. Managed - Home Rx: Diazepam 1mg TID prn - Changed to lorazepam - Admin IV prn Weakness, acute, present on admission. Ongoing - Likely secondary to poor po intake, poor nutritional status, and repeated hospitalizations - PT to continue while hospitalized - Recs include SNF placement - Patient would prefer HH options - Encourage pt to sit up to chair > x3 daily - Encourage mobility to prevent further deconditioning - Will need extensive PT during stay and at DC Microcytic, hypochromic anemia, chronic. Stable - Likely secondary to poor nutrition, as above - Treat underlying causes - Optimize nutritional supplementation - S/p 1U pRBC 11/15 - DVT: Therapeu fondaparinux 5mg qhs - Diet: Tube feeds + po - GI: None - PRN bowel/fever/pain/antiemetic - Code: FULL CODE Dispo: Likely to remain 1-2 additional days while GI continues to assess and nutritional plan developed. Will work with GI for nutritional and steroid plan. Will make POULTRY PICKER aware of any nutritional needs, such as outpatient tube feeds vs TPN, when decided. At this time, tube feeding via Dobhoff PT recommending SNF, which may be a choice to promote adequate nutrition and continued physical therapy to regain and maintain strength, but patient would much rather prefer to explore HH options. Foot pump will assist in minimize static fluid, as will increased mobility. Discussion with GI included topic of PEG placement. Patient is not ideal candidate for PEG, and PEG may be more detrimental than beneficial. Hopefully, she can tolerate the Dobhoff for to maintain nutrition, after discussion with GI today they also agreed that the patient may need 3 months or more of tube feeding in order for the patient to be able to maintain her nutrition status. Because the patient has been back and forth between the hospital and home due to her poor absorption, she may need more than 3 months worth of tube feedings. The current goal for the patient is to DC home safely and continue her tube feedings from home. Currently the patient is still very weak and has a lot of fluid in her lower extremities. Once the patient is stable enough and it is clinically safe for the patient to be discharged home, she will continue feedings at home and follow-ups with Dr. Valdez. Pain Evaluation: Adequate Pain Control GI Prophylaxis: Not indicated VTE Prophylaxis: Sub-Q Fondaparinux VTE Mechanical Devices: Intermittant Pneumatic CD Resuscitation Status: CPR: Attempt Resuscitation Time spent Patient seen and examined. Chart reviewed and case discussed with Dr. Gabbi Arteaga. I agree with the above note. Elissa Arteaga DO Nov 16, 2016 11:26 Satish Hernández MD Nov 16, 2016 19:10
--- NOTE | 2016-11-16 14:33 | PROG NOTE ---
[address] [address] PROGRESS NOTE PATIENT: MAE FELIZ : 1985 MR#: [id number] ADMIT: 11/06/2016 JOB ID: [id number] DATE: 11/16/2016 SUBJECTIVE: The patient finally received her Humira last night. She is a little more fatigued today. She did, however, get a blood transfusion and H and H appropriately elevated. She has not seen any more blood in the stoma output, which continues to feel like it is unimpeded. She is tolerating tube feeds and trying to supplement around them with oral nutrition. She feels as though she is making slow progress with Physical Therapy. OBJECTIVE: The patient was in good spirits. Alert and oriented, appropriate, cooperative, conversational. Stool was brown and soft in the ostomy bag. LABORATORY DATA: Hemoglobin 8.5, white count 6.5, platelets 246. INR two days ago was 1.01. Albumin is 1.4. Creatinine 0.30. ASSESSMENT AND RECOMMENDATIONS: A 31-year-old female with complex Crohn's. Continue aggressive supportive care. From my perspective, I think it would be reasonable to discharge home with Dobbhoff tube feeds once the patient has been deemed safe to do so from a Physical Therapy standpoint. We will continue to follow.
--- NOTE | 2016-11-16 16:06 | NUR ---
pain/sacrum Pt c/o of 7-8/10 abdominal pain q3hrs, asking for medication. Medicated with 2mg Dilaudid each time. Stating being satisfied with reassessment, rating her pain 4-5/10, which is baseline per pt. Pt has a significant bony prominence on her sacrum Mepilex applied and q2hr turns done with patient's help. Ongoing care.
--- NOTE | 2016-11-16 23:48 | NUR ---
activity/education explained to patient the importance of repositioning for optimal skin care. as noted patient has sacral bony prominence. mepilex in place. encouraged patient to turn every 2 hours if possible. plan to remind patient. patient verbalized understanding.
[2016-11-17] VITALS (8 sets, daily range): BP systolic 115–130; BP diastolic 67–82; PULSE 66–86; RESP 16–18; O2SAT 93–97
[2016-11-17] MEDS: HYDROmorphone 1 mg/mL Inj IVPUSH PRN ×7 (00:06→20:13)
[2016-11-17 03:41] LABS: BASOPHILS % (AUTO) 0 % (0-3); EOSINOPHILS % (AUTO) 0.2 % (0-5); MONOCYTES % (AUTO) 12.3 % (4-12); Mean Corpuscular Hemoglobin 25.9 pg (27.0-35.0); Mean Corpuscular Volume 85.2 fL (81-100); NEUTROPHILS % (AUTO) 67.3 % (40-74); Platelet Count 258 bil/L (150-400)
[2016-11-17 04:02] LABS: Magnesium 1.9 mg/dL (1.6-2.6); Phosphorus 2.6 mg/dL (2.5-4.9)
[2016-11-17] MEDS: Ondansetron 2 mg/mL 2 mL Inj IVPUSH PRN ×2 (06:32→10:43)
[2016-11-17] MEDS: predniSONE 20 mg Tablet PO SCH (09:21)
--- NOTE | 2016-11-17 15:04 | NUR ---
NUTRITION FOLLOW UP Assess: 31 YO F with sepsis, dehydration, and Crohns. Pt with multiple recent admissions. Her wt is up since last admission. Pt's mom feels the wt loss is mostly fluids. Dobbhoff tube placed on 11/09. Pt tolerating TF at goal rate (~75% of est needs). PO intake has been variable. Pt not a candidate for TPN or PEG and will continue with Dobbhoff. Spoke with Manuela the dietitian at [facility] who informs me that the pt's tube feed is expensive and won't be covered by insurance. Pt is currently on Vital 1.5 which is a peptide based formula for easier absorption. Pt has shown a clear history of malabsorption associated with Crohns disease resulting in weight loss that has required TPN and enteral nutrition. Per [facility] request, will trial the pt on Jevity 1.5 and assess tolerance. Manuela also recommended a trial of bolus feedings but at this time I will only adjust one variable (formula type) and assess tolerance before adjusting from continuous to bolus feeds. Will consider to switching to bolus feeds if pt tolerates a standard formula. PMHx: Crohns, DVT, Steroid dependence, PE. LABS: BUN 5, CR <0.30, Glu 102, Ca 7.0, (11/16): Alb 1.4 MEDICATIONS: Reviewed. Prednisone CURRENT DIET: General + magic cup. PO intake 25-75% NUTRITION SUPPORT: TF of Vital 1.5 @ 30 ml/hr providing 1035 kcal and 47g protein (73% of kcal needs, 67% protein needs) GI symptoms/stool: Stool via ileostomy SKIN: Wilfr[address] 17 ANTHROPOMETRICS: Current Wt: 55.1 kg BMI: 20.2 kg/m2, Admit Wt: 47.3 kg, (BMI: 17.4 kg/m2), IBW: 56.8 kg. ESTIMATED NEEDS: Calories: 6994-2213 kcal/d (30-35 kcal/kg Admit Wt) Protein: 70-85 g/d (1.2-1.5 g/kg IBW) Fluids: 1806-1432 ml/d (1 ml/kcal/d) NUTRITION DIAGNOSIS: 1) Severe malnutrition related to GI abnormalities as evidenced by malabsorption, inability to meet 75% of est needs for 1+ months, BMI <18.5 kg/m2, and loss of LBM and subcutaneous fat.---IMPROVED, pt eating and on TF INTERVENTION: 1) For insurance purposes, recommend a trial of TF changed to Jevity 1.5 at 30 ml/hr to provide 1035 kcal and 44 g protein, meeting 73% of calorie and 63% protein needs. 2) Goal rate may need to be adjusted based on oral intake. 3) Flush with 30 ml q 4 hrs. Pt drinking plenty of fluids. 4) Once tolerance of a standard formula is established, consider adjusting to a bolus schedule to simulate how TF will be delivered at home. MONITOR/EVALUATE: TF tolerance, bolus vs continuous feedings, PO intake, labs, wt, GI, nutrition status, POC. Follow per high nutrition risk guidelines.
--- NOTE | 2016-11-17 15:15 | NUR ---
Activity Patient working with PT today, RN called by [employer] stating HR is in the 140s. On assessment patient stating feeling SOB and able to feel her rapid HR. PT activity cut short due to high HR and SOB (See PT's notes). Pt Back in bed at this time with reminders to q2hr turns. Ongoing care.
--- NOTE | 2016-11-17 15:21 | PCM.PNMED ---
Subjective Date of Service Nov 17, 2016 Subjective Overnight: No acute events Today: Worked with PT, tolerated well, with mild increase in HR. Tolerating po intake well. Denies fever, chills, nausea, vomiting. Exam Vital Signs Vital Sign - Last Date Time Temp Pulse Resp B/P Pulse Ox O2 Delivery O2 Flow Rate FiO2 11/17/16 13:10 73 11/17/16 12:13 36.9 18 115/70 97 Room Air Intake and Output 11/16/16 11/16/16 11/17/16 Cumulative From/Thru 15:00 23:00 07:00 11/06/16 10:38 - 11/17/16 06:13 Intake Total 1238 ml 992 ml 29587 ml Output Total 2500 ml 1550 ml 01527 ml Balance -1262 ml -558 ml 19617 ml Intake Oral 218 ml 400 ml 41065 ml IV Total 1020 ml 11204 ml Tube Feeding 480 ml 3096 ml Packed Cells 300 ml Tube Irrigant 112 ml 1234 ml Output Urine Total 2250 ml 1500 ml 49154 ml Stool Total 250 ml 50 ml 4385 ml Exam General: Frail, extremely thin woman, no acute distress; resting supine in bed; extremely pleasant HENT: Atraumatic; cushinoid-facies; mucus membranes moist; NGT in place and secured Neck: No pain with ROM, trachea midline Cardiac: Accentuated sounds secondary to habitus, regular rate and rhythm Respiratory: Adequate air flow all castillo; no coarse sounds appreciated Abdomen: Ileostomy in place; no distention; mild pain with palpation; output formed, brown; no edy blood Extremities: BL feet mildly edematous and continues to be reported to be mildly tender to palpation; no edema of b/l legs Skin: Warm and dry Neuro: CNII-XII grossly intact; no facial asymmetry; normal speech Psych: Appropriate mood, affect, and responses to questioning; good insight and judgment Lab and Diagnostics Result Diagram: 11/17/16 0300 11/17/16 0300 X-Rays, CTs and MRIs Chest x-ray before and after right IJ central line is unremarkable. Assessment & Plan Ms. Terra Beauchamp is an extremely pleasant 31 year old woman that recently moved to the [facility] from the [facility] with a complex history of Crohn 's disease s/p ileostomy after colectomy performed at [facility] in [place], [place]. She is on chronic glucocorticoids with recent initiation of Humira therapy, multiple prior obstructions/near obstructions near ostomy, recurrent flares, and recent left UE DVT secondary to PICC placement for TPN, who presented to the ED with acute on chronic diffuse abdominal pain, cramping, nausea, vomiting, and progressive weakness. She was admitted for evaluation and treatment of hypovolemic shock secondary to exacerbation of Crohn's and stenotic ostomy site. - Hospital day 13 Acute exacerbation of Crohn's disease with ostomy stenosis, present on admission. Ongoing - Home Rx: [facility] glucocorticoid with taper and Humira - GI has been consulted; appreciate time and recommendations - Colonoscopy with stoma dilation completed 11/11; final report by Dr. Valdez completed - Restart tube feeds, encourage po intake as tolerated - Possible return to endoscopy 11/18-11/19; GI scheduling - 11/15: Humira 40mg SQ x1 provided Suspected adrenal insufficiency secondary to chcf steroid use, acute, present on admission. Under therapy - Home Rx: Prednisone 20mg daily - Stress dose steroids completed: Solu-Cortef 100mg q8 - Continue home dose prednisone 20mg daily Hypocalcemia, acute, present on admission. Under evaluation and treatment - On admit: 5.7 - Correction for albumin 11/16: 8.7 - Monitor Hyponatremia, acute, present on admission. Resolved - On admit: Na 123--> improved - H/o hyponatremia in previous hospitalizations likely secondary to poor po intake - Continue to address nutritional needs and underlying etiology of n/v - No IVF at this time Severe protein/calorie malnutrition, chronic. Under evaluation - H/o BMI < 18.5; seen on multiple admissions - H/o TPN requirements - Nutrition following - Dobhoff in place for feedings - Likely require tube feeding via Dobhoff at DC; not candidate for TPN - Resume tube feeds - Encourage po intake as tolerated - Discussed possibility of PEG with GI: NOT recommended - Dobhoff to remain as patient will need tube feedings for 3 months or longer - Encourage high quality po intake Hypovolemic shock, acute, present on admission. Resolved - Likely secondary to decrease in po intake in days leading to admission - Currently stable Possible sepsis, acute, present on admission. Resolved - Unlikely as Dx - DC'd Zosyn Left upper extremity DVT, acute, present on admission. Under therapy - Secondary to previous PICC placement; Dx October 2016 - Fondaparinux 5mg qhs x6 mo therapy - Resumed Bilateral lower extremity edema, acute, not present on admission. Under therapy - Home Rx: Lasix 20mg daily - Monitor Chronic pain. Managed - Long-standing issue; patient reports constant pain - Dilaudid 1-2mg IV q3h prn Anxiety, chronic. Managed - Home Rx: Diazepam 1mg TID prn - Changed to lorazepam - Admin IV prn Weakness, acute, present on admission. Ongoing - Likely secondary to poor po intake, poor nutritional status, and repeated hospitalizations - PT to continue while hospitalized - Recs include SNF placement - Patient would prefer HH options - Encourage patient to sit up to chair > x3 daily - Encourage mobility to prevent further deconditioning - Will need extensive PT during stay and at DC Microcytic, hypochromic anemia, chronic. Stable - Likely secondary to poor nutrition, as above - Treat underlying causes - Optimize nutritional supplementation - S/p 1U pRBC 11/15 - DVT: Therapeu fondaparinux 5mg qhs - Diet: Tube feeds + po - GI: None - PRN bowel/fever/pain/antiemetic - Code: FULL CODE Dispo: Likely to remain 1-2 additional days while GI continues to assess and nutritional plan developed. Will await DC for post endoscopy to assess tolerance of procedure. Will work with GI for nutritional and steroid plan. Will make BILLING ADJUDICATOR aware of any nutritional needs, such as outpatient tube feeds vs TPN, when decided. At this time, tube feeding via Dobhoff . Discussion with GI included topic of PEG placement. Patient is not ideal candidate for PEG, and PEG may be more detrimental than beneficial. Hopefully, she can tolerate the Dobhoff for to maintain nutrition, after discussion with GI today they also agreed that the patient may need 3 months or more of tube feeding in order for the patient to be able to maintain her nutrition status. Because the patient has been back and forth between the hospital and home due to her poor absorption, she may need more than 3 months worth of tube feedings. The current goal for the patient is to DC home safely and continue her tube feedings from home. Currently the patient is still very weak and has a lot of fluid in her lower extremities. Once the patient is stable enough and it is clinically safe for the patient to be discharged home, she will continue feedings at home and follow-ups with Dr. Valdez. Pain Evaluation: Adequate Pain Control GI Prophylaxis: Not indicated VTE Prophylaxis: Sub-Q Fondaparinux VTE Mechanical Devices: Intermittant Pneumatic CD Resuscitation Status: CPR: Attempt Resuscitation Elissa Arteaga DO Nov 17, 2016 15:21 Satish Hernández MD Nov 17, 2016 19:10
[2016-11-17] MEDS: LORazepam 0.5 mg Tablet PO PRN (20:14)
[2016-11-18] VITALS (7 sets, daily range): BP systolic 112–122; BP diastolic 72–81; PULSE 68–108; RESP 16–20; O2SAT 94–98
--- NOTE | 2016-11-18 00:22 | PROG NOTE ---
[address] [address] PROGRESS NOTE PATIENT: MAE FELIZ : 1985 MR#: [id number] ADMIT: 11/06/2016 JOB ID: [id number] DATE: 11/17/2016 SUBJECTIVE: Overall, the patient remains stable. OBJECTIVE: Vitals are stable. LABORATORIES: Hemoglobin 8.4, white count normal. Creatinine 0.30. ASSESSMENT AND RECOMMENDATIONS: Continue supportive care. I will continue to follow while inpatient. We plan to pursue a repeat dilatation on Thursday. On November 19, the patient can taper down to 15 mg of prednisone daily.
[2016-11-18] MEDS: HYDROmorphone 1 mg/mL Inj IVPUSH PRN ×7 (00:43→20:28)
[2016-11-18 04:26] LABS: BASOPHILS % (AUTO) 0 % (0-3); EOSINOPHILS % (AUTO) 0 % (0-5); MONOCYTES % (AUTO) 10.9 % (4-12); Mean Corpuscular Hemoglobin 25.9 pg (27.0-35.0); Mean Corpuscular Volume 85.4 fL (81-100); NEUTROPHILS % (AUTO) 77.4 % (40-74); Platelet Count 307 bil/L (150-400)
[2016-11-18 04:54] LABS: Magnesium 2.1 mg/dL (1.6-2.6); Phosphorus 3.8 mg/dL (2.5-4.9)
--- NOTE | 2016-11-18 06:07 | NUR ---
Nausea/Pain/Edema Pt did c/o nausea earlier in the shift but did not need zofran for it. Pt has had pain 8/10-7/10 throughout the shift and has been given 2mg dilaudid Q3-4H with some mild relief to an acceptable pain level of 4/10. Pt has had a positive demeanor during the shift. Pt's edema is greater in the left lower leg/ankle/foot in comparison to the right leg. Pt still has minor weeping from the lower left leg where the skin tear was. Pt has no dressing over the skin tear site that it weeping but does have a chux pad in place under both legs.
[2016-11-18] MEDS: predniSONE 20 mg Tablet PO SCH (08:21)
[2016-11-18] MEDS: LORazepam 0.5 mg Tablet PO PRN ×2 (10:27→18:06)
--- NOTE | 2016-11-18 11:28 | NUR ---
Ambulate w/Nsg Pt released to ambulate w/nsg w/FWW 2-3x/day as pt tolerates. PT will cont to see for continued progression of bed mobility and for stair navigation training.
--- NOTE | 2016-11-18 11:58 | PCM.PNMED ---
Subjective Date of Service Nov 18, 2016 Subjective Overnight: No acute events reported Today: Doing well, tolerating tube feeds and po intake well. Denies SOB, chest pain, generalized pain. Does endorse mild abdominal pain. Ostomy output adequate , with formed brown stool. Was about to work with PT at time of evaluation; appears to be in good spirits, and eager to work with PT in room. Patient ambulated with walker and physical therapy in the hallway today. Exam Vital Signs Vital Sign - Last Date Time Temp Pulse Resp B/P Pulse Ox O2 Delivery O2 Flow Rate FiO2 11/18/16 11:20 Room Air 11/18/16 11:03 84 11/18/16 08:55 36.5 16 114/72 97 Intake and Output 11/17/16 11/17/16 11/18/16 Cumulative From/Thru 15:00 23:00 07:00 11/06/16 10:38 - 11/18/16 05:54 Intake Total 640 ml 1292 ml 86442 ml Output Total 2000 ml 1900 ml 04345 ml Balance -1360 ml -608 ml 91724 ml Intake Oral 640 ml 300 ml 05856 ml IV Total 18498 ml Tube Feeding 786 ml 3882 ml Packed Cells 300 ml Tube Irrigant 206 ml 1440 ml Output Urine Total 1600 ml 1800 ml 73356 ml Stool Total 400 ml 100 ml 4885 ml Exam General: Frail, extremely thin woman, no acute distress; resting supine in bed; extremely pleasant HENT: Atraumatic; cushinoid-facies; mucus membranes moist; NGT in place and secured Neck: No pain with ROM, trachea midline Cardiac: Accentuated sounds secondary to habitus, regular rate and rhythm Respiratory: Adequate air flow all castillo; no coarse sounds appreciated Abdomen: Ileostomy in place; no distention; mild pain with palpation; output formed, brown; no edy blood Extremities: BL feet mildly edematous, improved compared to previous, and continues to be reported to be mildly tender to palpation; no edema of b/l legs Skin: Warm and dry Neuro: CNII-XII grossly intact; no facial asymmetry; normal speech Psych: Appropriate mood, affect, and responses to questioning; good insight and judgment. Patient is in good spirits Lab and Diagnostics Result Diagram: 11/18/16 0345 11/18/16 0345 Microbiology Name: MAE BEAUCHAMP Age/Sex: 31/F Attend Dr: Daryl Aguilar MD Acct: [id number] Unit: [id number] Status: ADM IN Location: [facility] 2018-10 Re11/06/16 Disch: Specimen: [id number] Collected: 11/06/16 Status: COMP Req#: [id number] Received: 11/06/16 Source: URINE CC Sp Desc : PP Yair Dr: Rashad Solis MD Ordered: URINE CULT Procedure Result Verified Site Microbiology ZUHAIR CULT URINE Final 02/04/17-0749 Organism 1 MIXED UROGENITAL SAMEER U COLONY COUNT/QUANTITY 50,000-100,000 CFU/ml Blood cultures are negative. X-Rays, CTs and MRIs Chest x-ray before and after right IJ central line is unremarkable. Assessment & Plan Ms. Mae Beauchamp is an extremely pleasant 31 year old woman that recently moved to the [facility] from the [facility] with a complex history of Crohn 's disease s/p ileostomy after colectomy performed at [facility] in [place], [place]. She is on chronic glucocorticoids with recent initiation of Humira therapy, multiple prior obstructions/near obstructions near ostomy, recurrent flares, and recent left UE DVT secondary to PICC placement for TPN, who presented to the ED with acute on chronic diffuse abdominal pain, cramping, nausea, vomiting, and progressive weakness. She was admitted for evaluation and treatment of hypovolemic shock secondary to exacerbation of Crohn's and stenotic ostomy site. - Hospital day 14 Acute exacerbation of Crohn's disease with ostomy stenosis, present on admission. 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 Valdez completed - Restart tube feeds, encourage po intake as tolerated - 11/15: Humira 40mg SQ x1 provided; dose from home - Repeat dilation of ostomy planned for 11/19 Suspected adrenal insufficiency secondary to nursing home steroid use, acute, present on admission. Under therapy - Home Rx: Prednisone 20mg daily - Stress dose steroids completed: Solu-Cortef 100mg q8 - Continue home dose prednisone 20mg daily - Taper to 15mg daily starting 11/19 Hypocalcemia, acute, present on admission. Under evaluation and treatment - On admit: 5.7 - Correction for albumin 11/18: 9.1 - Monitor Hyponatremia, acute, present on admission. Resolved - On admit: Na 123--> improved - H/o hyponatremia in previous hospitalizations likely secondary to poor po intake - Continue to address nutritional needs and underlying etiology of n/v - No IVF at this time Severe protein/calorie malnutrition, chronic. Under evaluation - H/o BMI < 18.5; seen on multiple admissions - H/o TPN requirements - Nutrition following - Dobhoff in place for feedings - Likely require tube feeding via Dobhoff at MD; not candidate for TPN - Resume tube feeds - Encourage po intake as tolerated - Discussed possibility of PEG with GI: NOT recommended - Dobhoff to remain as patient will need tube feedings for 3 months or longer - Encourage high quality po intake Hypovolemic shock, acute, present on admission. Resolved - Likely secondary to decrease in po intake in days leading to admission - Currently stable Possible sepsis, acute, present on admission. Resolved - Unlikely as Dx - DC'd Zosyn Left upper extremity DVT, acute, present on admission. Under therapy - Secondary to previous PICC placement; Dx October 2016 - Fondaparinux 5mg qhs x6 mo therapy - Resumed Bilateral lower extremity edema, acute, not present on admission. Under therapy - Home Rx: Lasix 20mg daily - Monitor Chronic pain. Managed - Long-standing issue; patient reports constant pain - Dilaudid 1-2mg IV q3h prn Anxiety, chronic. Managed - Home Rx: Diazepam 1mg TID prn - Changed to lorazepam - Admin IV prn - Provide Ativan Rx at DC Weakness, acute, present on admission. Ongoing - Likely secondary to poor po intake, poor nutritional status, and repeated hospitalizations - PT to continue while hospitalized - Recs include SNF placement - Patient would prefer options - Encourage patient to sit up to chair > x3 daily - Encourage mobility to prevent further deconditioning - Will need extensive PT during stay and at DC Microcytic, hypochromic anemia, chronic. Stable - Likely secondary to poor nutrition, as above - Treat underlying causes - Optimize nutritional supplementation - S/p 1U pRBC 11/15 - DVT: Therapeu fondaparinux 5mg qhs - Diet: Tube feeds + po - GI: None - PRN bowel/fever/pain/antiemetic - Code: FULL CODE - Time spent: estimated 35 minutes of care provided; greater than 50% spent on coordination of care and counseling. Dispo: Likely to remain 1-2 additional days while GI continues to assess and nutritional plan developed. Will await DC for post endoscopy to assess tolerance of procedure. Will work with GI for nutritional and steroid plan. Will make MUSHROOM GROWTH MEDIA MIXER aware of any nutritional needs, such as outpatient tube feeds vs TPN, when decided. At this time, tube feeding via Dobhoff. Likely to DC 11/20 if stable. Patient was in process of becoming established at [facility], but has been hospitalized numerous times and has not been able to attend her scheduled appointments. Will need follow up to establish care and continue care , in addition, to GI follow up with Dr. Valdez. Discussion with GI included topic of PEG placement. Patient is not ideal candidate for PEG, and PEG may be more detrimental than beneficial. Hopefully, she can tolerate the Dobhoff for to maintain nutrition, after discussion with GI today they also agreed that the patient may need 3 months or more of tube feeding in order for the patient to be able to maintain her nutrition status. Because the patient has been back and forth between the hospital and home due to her poor absorption, she may need more than 3 months worth of tube feedings. The current goal for the patient is to DC home safely and continue her tube feedings from home. Currently the patient is still very weak and has a lot of fluid in her lower extremities. Once the patient is stable enough and it is clinically safe for the patient to be discharged home, she will continue feedings at home and follow-ups with Dr. Valdez. Pain Evaluation: Adequate Pain Control GI Prophylaxis: Not indicated VTE Prophylaxis: Sub-Q Fondaparinux VTE Mechanical Devices: Intermittant Pneumatic CD Resuscitation Status: CPR: Attempt Resuscitation Attending Statement Patient seen and examined. Chart reviewed and case discussed with Dr. Gabbi Arteaga. I agree with the above note. Elissa Arteaga DO Nov 18, 2016 11:49 Satish Hernández MD Nov 18, 2016 18:43
--- NOTE | 2016-11-18 12:27 | NUR ---
HR with Ambulation Pt up walking in the horner with PT. HR went to 140's by end of walk. Pt stated no c/o dizziness but did feel her rate start to climb. Will inform MD upon rounding and continue to monitor.
--- NOTE | 2016-11-18 15:40 | NUR ---
NUTRITION FOLLOW UP Assess: 31 YO F with sepsis, dehydration, and Crohns. Pt with multiple recent admissions. Her wt is up since last admission. Pt's mom feels the wt gain is mostly fluids. Dobbhoff tube placed on 11/09. Pt was tolerating TF of Vital 1.5 at goal rate (~75% of est needs). D/t issues w/ insurance coverage, doing a trial TF w/ Jevity 1.5 to assess tolerance. Pt not a candidate for TPN or PEG. Spoke w/ pt to assess how she is tolerating the new formula. Pt reports noticing the change in formula w/ associated GI upset. Would prefer to be back on Vital 1.5. Will not recommend bolus feedings at this time d/t GI upset. Discussed the situation w/ licensed social worker, who recommended connecting w/ [facility] again to determine if any comparable formulas to Vital would be available and covered for pt. Unable to connect w/ RD at [facility] today; will try again tomorrow. TF will be turned off at 5am tomorrow for endoscopy. Pt states increased appetite, w/ PO intake 50-100% at all meals. PMHx: Crohns, DVT, Steroid dependence, PE. LABS: Fws Faculty Assistant<0.30, Gluc 107, Ca 7.3, ALT 55, Alb 1.7 MEDICATIONS: Reviewed. CURRENT DIET: General + magic cup. PO intake 50-100% NUTRITION SUPPORT: TF of Jevity 1.5 @ 30 ml/hr providing 1035 kcal and 44g protein (73% of kcal needs, 63% protein needs) GI symptoms/stool: Stool via ileostomy 450 ml output SKIN: Wilfrido 17 ANTHROPOMETRICS: Current Wt: 54.3 kg BMI: 19.9 kg/m2 Admit Wt: 47.3 kg (BMI: 17.4 kg/m2) IBW: 56.8 kg ESTIMATED NEEDS: Calories: 9084-8071 kcal/d (30-35 kcal/kg Admit Wt) Protein: 70-85 g/d (1.2-1.5 g/kg IBW) Fluids: 1253-9358 ml/d (1 ml/kcal/d) NUTRITION DIAGNOSIS: 1) Severe malnutrition related to GI abnormalities as evidenced by malabsorption, inability to meet 75% of est needs for 1+ months, BMI <18.5 kg/m2, and loss of LBM and subcutaneous fat.---IMPROVED, pt eating and on TF INTERVENTION: 1) For insurance purposes, recommend continuing a trial of Jevity 1.5 at 30 ml/hr to provide 1035 kcal and 44 g protein, meeting 73% of calorie and 63% protein needs. If pt not tolerating well w/in 24 hours, recommend switching back to Vital 1.5. 2) Goal rate may need to be adjusted based on oral intake. 3) Flush with 30 ml q 4 hrs. Pt drinking plenty of fluids. 4) If tolerance of a standard formula is established, consider adjusting to a bolus schedule to simulate how TF will be delivered at home. MONITOR/EVALUATE: TF tolerance, bolus vs continuous feedings, PO intake, labs, wt, GI, nutrition status, POC. Follow per high nutrition risk guidelines. Addendum: 11/18/16 at [address] I have read and agree with above student documentation. Jessika Pike RD, CD
--- NOTE | 2016-11-18 15:55 | NUR ---
Social Work Note: Continued Discharge Planning Data& Assessment: Per MD pt is not medically ready for discharge at this time. SW met with pt at bedside to check in and assess for any unmet needs. Hospital rn invasive and Home Infusion rn invasive are currently communicating in narrowing down the formula for pt at time of discharge. Pt confirmed plan to discharge home with [facility] for her tube feeds. Pt denies any other needs at this time. SW to continue to follow if any needs arise. Plan: Anticipated discharge ome with [facility]. Pt denies any other needs at this time. SW to continue to follow if any needs arise. ASHLYN Lilly
[2016-11-19] VITALS (12 sets, daily range): BP systolic 95–121; BP diastolic 64–85; PULSE 74–105; RESP 14–18; O2SAT 94–100
--- NOTE | 2016-11-19 00:42 | PROG NOTE ---
[address] [address] PROGRESS NOTE PATIENT: MAE FELIZ : 1985 MR#: [id number] ADMIT: 11/06/2016 JOB ID: [id number] DATE: 11/18/2016 SUBJECTIVE: The patient continues to do well. She walked for the first time in a while over 100 feet and seemed to do fine. OBJECTIVE: The patient was in good spirits, lying in bed. Vital signs are stable. Heart rate is up a little bit. Labs: Platelets 307, hemoglobin 8.2, hematocrit 27.0, white count 7.0. Liver tests have improved, albumin is up to 1.7. ASSESSMENT AND PLAN: A 31-year-old female with complex Crohn's, complicated by recent left upper extremity deep venous thrombosis related to a peripherally inserted central catheter line, and ultimately massive pulmonary emboli. Fondaparinux is going to be placed on hold this evening. The patient should continue her tube feeds until about 5 a.m. tomorrow morning, then take 2 L of GoLYTELY between 6 and 8 a.m. We have the patient scheduled for another round of dilatation tomorrow about midday. This will again be under fluoro with anesthesia support.
[2016-11-19] MEDS: HYDROmorphone 1 mg/mL Inj IVPUSH PRN ×7 (03:45→23:40)
[2016-11-19] MEDS: LORazepam 0.5 mg Tablet PO PRN (04:01)
[2016-11-19 04:10] LABS: BASOPHILS % (AUTO) 0.1 % (0-3); EOSINOPHILS % (AUTO) 0 % (0-5); Mean Corpuscular Hemoglobin 25.9 pg (27.0-35.0); Mean Corpuscular Volume 85.9 fL (81-100); NEUTROPHILS % (AUTO) 71.4 % (40-74); Platelet Count 339 bil/L (150-400)
[2016-11-19 04:41] LABS: Magnesium 2.1 mg/dL (1.6-2.6); Phosphorus 4.2 mg/dL (2.5-4.9)
[2016-11-19] MEDS ORDERED: PEG/Electrolytes 4,000 mL Solution PO ONE (06:00)
--- NOTE | 2016-11-19 06:32 | NUR ---
Prep for Procedure on 11/19/2016 Pt's tubefeed of Jevity 1.5 was stopped at 0500. Pt has begun to drink the GoLytely by mouth and will continue to drink it until 0800 and when 2,000ml has been consumed. Pt is aware that at 0800 she will no longer be able to have anything by mouth.
[2016-11-19] MEDS: Ondansetron 2 mg/mL 2 mL Inj IVPUSH PRN ×2 (07:53→15:01)
[2016-11-19] MEDS ORDERED: fentaNYL-PF 50 mCg/mL 2 mL Inj ONE (08:28)
[2016-11-19] MEDS ORDERED: Propofol 10,000 mCg/mL 20 mL Inj ONE (08:28)
[2016-11-19] MEDS: predniSONE 10 mg Tablet PO SCH (09:00)
--- NOTE | 2016-11-19 11:30 | NUR ---
OFF unit Pt off unit at 1200 to Endo for procedure. Vitals stable, A&Ox3, pain 6/10 abd. Pt had been NPO since , just sips of bowel prep between -, that info called to Endo prior. instructional technology specialist aware. Addendum: 11/19/16 at 1536 by IVELISSE CRUZ RN Pt back to unit at 1500. Vitals stable, ST 105. C/O abd pain 8. 2mg IVP Dilaudid given. Pain still unrelieved another one time dose of 1mg IVP Dilaudid given per MD Hernández. Will continue to monitor.
--- NOTE | 2016-11-19 12:54 | PCM.HPANE ---
Patient Data Surgeon Admitting Provider:Daryl Aguilar MD Attending Provider:Daryl Aguilar MD Primary Care Physician:Karissa Vicente DO Other Provider: Reason for Visit Dehydration,Sepsis Ht/WT & BMI Height (Feet): 5 Height (Inches): 5.00 Weight (Kilograms): 51.200 Body Mass Index 18.00 Allergies Coded Allergies: Iodinated Contrast Media - Oral and (Verified Allergy, Severe, Shortness of Breath,full body rash/redness, 11/06/16) Past Anesthesia History Anesthesia History: Denies:: Abnormal Airway, Anesthesia Reactions, Difficult Intubation, Fam Anesthesia Reaction, Fam Malignant Hypertherm, Malignant Hyperthermia Diabetes History Hx Diabetes?: No Current Bedside Blood Glucose: 119 MRSA MRSA: No Medications Hypertension Medication: Yes Home Meds Incl Beta Radha: No Active Scripts Oxycodone (Roxicodone)15 Mg [id number] Mg PO Q6H PRN For Pain #60 TABLET Ref 0 Prov:Purnima Recio DO 10/28/16 Furosemide (Lasix)20 Mg [id number] Mg PO DAILY #15 TABLET Ref 0 Prov:Purnima Recio DO 10/28/16 Fondaparinux Sodium 5 Mg/0.4 Ml Syringe5 Mg SQ DAILY anticoagulation #30 SYR Prov:HU JAUREGUI DO 10/28/16 Adalimumab (Humira Crohn's)40 Mg/0.8 Ml Pen.[email or web address] Mg SQ ONCE #2 DOSE Prov:Karissa Vicente DO 10/04/16 Dicyclomine (Bentyl)10 Mg [id number] Mg PO QID #120 CAPSULE Prov:Karissa Vicente DO 10/04/16 Reported Medications Ascorbate Calcium (Vitamin C)500 Mg [id number] Mg PO DAILY 11/06/16 Diazepam (Valium)2 Mg Tablet1 Mg PO TID PRN For Anxiety 30 Days Ref 0 11/06/16 Prednisone (PredniSONE)20 Mg Purzkv58 Mg PO DAILY Ref 0 11/06/16 Promethazine 12.5 Mg Tablet6.25 Mg PO PRN For Nausea 10/21/16 History History of ENT Problems?: No HEENT History: Denies:: Abnormal Airway Difficult Intubation Dysphagia Hearing Problem Sinus Problem Hx of Heart Problems?: Yes Cardiovascular History: Positive for:: Heart Murmur Denies:: Cardiac Surgery Chest Pain Congestive Heart Failure Edema Hypertension Irregular Heartbeat Pacemaker Thrombophlebitis Hx of Respiratory Problem?: Yes Respiratory History: Denies:: Asthma COPD Chest Surgery Emphysema Hemoptysis Pneumonia Tuberculosis Other Resp Pertinent History: PE Hx Neurologic Problems?: No Neurological History: Denies:: CVA Hx of GI Problems?: Yes Gastrointestinal History: Positive for:: Heartburn Denies:: Diverticulitis Gall Bladder Disease Gastroesphageal Reflux Gastrointestinal Bleeding Hepatitis Hiatal Hernia Liver Disease Rectal Bleeding Other GI Pertinent History: Crohns disease w/ illeostomy Hx of Problems?: No Female Hx: Denies:: Currently Endometriosis Pelvic Inflammatory Problems with Breasts? Hx Musculoskeletal Problems?: Yes Musculoskeletal History: Denies:: Back Injury Fibromyalgia Joint Replacement Musculoskeletal Trauma Hx of Psycho/Social Problems?: Yes Psycho Social History: Positive for:: Anxiety Denies:: Bipolar Disorder Hx Depression Suicide Attempt Hx Surgeries?: Yes (total proctolectomy with end illeostomy ) Hx Any Other Health Problems?: No Other History: Positive for:: Hospitalization (Crohns/dehydration) Denies:: Cancer Thyroid Disease History Blood Transfusions: Positive for:: Accept Blood Products? Blood Transfusions Denies:: Blood Transfuse Reaction Hx Diabetes: NoBedside Blood Glucose: 119 Occupation: 9 Hx Alcohol Use: NoHx Substance Use: No Smoking Status: Never Smoker Have You Smoked inLast 12 mo: No Stop/Bang Treated for Sleep Apnea?: No Do You Have a CPAP Machine?: No S-Snoring: Do You Snore Loudly: No T-Tired: feel tired, fatigued: Yes O-Obsered: Observed not breath: No P-Blood Pressure: treated: No B- Body Mass Index > 35 kg/m2: No A- Age over 50: No N- Neck Large Circumference: No G- Gender Male: No FELIX Total Score: 1 FELIX Risk Assessment: Low Risk, <3 Yes Risk Assessment Category Category 1A: Patient has history of documented sleep apnea, and HAS NOT received any narcotic, sedative or anesthesia administration during this stay. Category 1B: Patient has history of documented sleep apnea, and HAS received any narcotic , sedative or anesthesia administration during this stay Category 2: Patient has SUSPECTED Obstructive Sleep Apnea, and HAS received any narcotic , sedative or anesthesia administration during this stay. Category 3: Patient has SUSPECTED Obstructive Sleep Apnea and HAS NOT received narcotic, sedative or anesthesia administration during this stay. Category 4: Outpatient in Procedural Areas with known sleep apnea or who screen positive for High Risk via the STOP/BANG questionnaire. Low Risk, <3 Yes Exam Exam Vital Signs Vital Signs Date Time Temp Pulse Resp B/P Pulse Ox O2 Delivery O2 Flow Rate FiO2 11/19/16 12:21 36.7 89 16 101/64 94 Room Air 11/19/16 12:20 36.7 94 16 101/64 99 Room Air 11/19/16 10:21 79 11/19/16 08:50 36.3 98 16 114/74 94 Room Air General Appearance: Alert, Oriented X3, Cooperative, No Acute Distress HEENT/AIRWAY: MP 2 Lungs: Clear to Auscultation, Normal Air Movement Heart: Exam Unremarkable, Regular Rate/Rhythm, No Murmurs/Rubs/Gallops Meds/Labs/Diagnostics Admission Meds Current Medications Prednisone (Deltasone) 15 mg DAILYWM PO Last administered on 11/19/16 09:00; Start 11/19/16 at 08:00 Polyethylene Glycol/ Electrolytes (Colyte) 2,000 ml OT ONCE PO Last administered on 11/19/16 06:30; Start 11/19/16 at 06:00; Stop 11/19/16 at 06:01 ; Status DC Bedside Blood Glucose: 119 Labs Test 11/06/16 12:15 11/06/16 12:47 11/06/16 17:28 11/09/16 03:45 Band Neutrophils % 7% (1-5) Troponin T 0.010ug/L (0.0-0.011) Urine Color Dark yellow (YELLOW) Urine Appearance Hazy (CLEAR,HAZY) Urine pH 5.5 (5.0-8.0) Urine Specific [place] 1.025 (1.003-1.035) Urine Protein Negativemg/dL (NEG,TRACE) Urine Glucose (UA) Negativemg/dL (NEGATIVE) Urine Ketones Tracemg/dL (NEGATIVE) Urine Occult Blood Negative (NEGATIVE) Urine Nitrite Negative (NEGATIVE) Urine Bilirubin Negative (NEGATIVE) Urine Urobilinogen Normalmg/dL (NORMAL) Urine Leukocyte Esterase Small (NEGATIVE) Urine RBC 0-2/hpf (0-2) Urine WBC 11-50/hpf (0-5) Urine Epithelial Cells Occasional/hpf (NONE-MOD) Urine Crystals None seen (NONE SEEN) Urine Bacteria Few/hpf (NONE-FEW) Urine Hyaline Casts Occasional/lpf (NONE) Urine Granular Casts None seen (NONE SEEN) Urine Waxy Casts None seen (NONE SEEN) Urine Red Blood Cell Casts None seen (NONE SEEN) Urine White Blood Cell Casts None seen (NONE SEEN) Urine Mucus Present (None Seen) Urine Trichomonas None seen (NONE SEEN) Urine Yeast None (NONE SEEN) Urinalysis Comment None Urine Culture Reflexed Indicated Hemoglobin A1c 4.3% (4.8-5.6) Lactic Acid Level 0.8mmol/L (0.4-2.0) Prealbumin 7mg/dL (20-40) Test 11/10/16 10:43 11/14/16 04:30 11/15/16 04:30 11/19/16 04:00 Ionized Calcium 1.20mmol/L (1.17-1.32) Prothrombin Time 10.8sec (8.1-12.5) Prothromb Time International Ratio 1.01ratio Ionized Calcium (Calculated) 3.79mg/dL (3.5-5.2) Direct Bilirubin 0.2mg/dL (0.0-0.3) Hold Purple Top Tube Received (Received) Hold [place] Top Tube Received (Received) White Blood Count 7.5th/mm3 (3.8-10.1) Red Blood Count 3.40mil/mm3 (3.90-5.20) Hemoglobin 8.8g/dL (12.0-15.6) Hematocrit 29.2% (35.0-46.0) Mean Corpuscular Volume 85.9fL (81-100) Mean Corpuscular Hemoglobin 25.9pg (27.0-35.0) Mean Corpuscular Hemoglobin Concent 30.1% (32.0-37.0) Red Cell Distribution Width 18.0% (12.3-15.4) Platelet Count 339bil/L (150-400) Neutrophils (%) (Auto) 71.4% (40-74) Lymphocytes (%) (Auto) 16.1% (14-46) Monocytes (%) (Auto) 12.0% (4-12) Eosinophils (%) (Auto) 0% (0-5) Basophils (%) (Auto) 0.1% (0-3) Sodium Level 138mEq/L (134-144) Potassium Level 4.3mEq/L (3.5-5.2) Chloride Level 101mEq/L (97-108) Carbon Dioxide Level 29mmol/L (18-29) Blood Urea Nitrogen 9mg/dL (6-20) Creatinine < 0.30mg/dL (0.57-1.00) Estimat Glomerular Filtration Rate mL/min (>59) Glucose Level 89mg/dL (60-99) Calcium Level 7.6mg/dL (8.5-10.1) Phosphorus Level 4.2mg/dL (2.5-4.9) Magnesium Level 2.1mg/dL (1.6-2.6) Total Bilirubin 0.2mg/dL (0.0-1.2) Aspartate Amino Transf (AST/SGOT) 17U/L (0-50) Alanine Aminotransferase (ALT/SGPT) 41U/L (0-32) Alkaline Phosphatase 112U/L (25-150) Total Protein 3.9g/dL (6.4-8.4) Albumin 1.8g/dL (3.4-5.0) Plan Impression Patient chart reviewed, patient interviewed and anesthestic plan with risks, benefits, and alternatives discussed, and informed consent obtained. ASA Physical Status: ASA3 Severe Disease Anesthetic Plan: MAC Bene/Risks/Altern/Consents: Yes HP Complete Prior to Induction: Yes Vahid Hilario MD Nov 19, 2016 12:54
[2016-11-19] MEDS ORDERED: Ondansetron 2 mg/mL 2 mL Inj IVPUSH PRN (12:55)
--- NOTE | 2016-11-19 12:57 | PCM.PNMED ---
Subjective Date of Service Nov 19, 2016 Subjective Overnight: No acute events Today: States mild abdominal cramping. Attempting to complete GoLytely prep, states was able to tolerate approximately 3 glasses of the prep, but developed some nausea, abdominal cramping, and unease. She is eager to proceed with her endoscopy procedure, and is looking forward to returning home. She understands nutrition is of utmost importance, as is physical therapy. Exam Vital Signs Vital Sign - Last Date Time Temp Pulse Resp B/P Pulse Ox O2 Delivery O2 Flow Rate FiO2 11/19/16 12:21 36.7 89 16 101/64 94 Room Air Intake and Output 11/18/16 11/18/16 11/19/16 Cumulative From/Thru 15:00 23:00 07:00 11/06/16 10:38 - 11/19/16 05:07 Intake Total 480 ml 100 ml 97164 ml Output Total 1730 ml 1700 ml 01824 ml Balance -1250 ml -1600 ml 70906 ml Intake Oral 480 ml 100 ml 18804 ml IV Total 77223 ml Tube Feeding 3882 ml Packed Cells 300 ml Tube Irrigant 1440 ml Output Urine Total 1630 ml 1700 ml 68280 ml Stool Total 100 ml 4985 ml Exam General: Frail, extremely thin woman, no acute distress; resting supine in bed; extremely pleasant HENT: Atraumatic; cushinoid-facies; mucus membranes moist; NGT in place and secured Neck: No pain with ROM, trachea midline Cardiac: Accentuated sounds secondary to habitus, regular rate and rhythm Respiratory: Adequate air flow all castillo; no coarse sounds appreciated Abdomen: Ileostomy in place; no distention; mild pain with palpation; output formed, brown; no edy blood Extremities: BL feet with trace edema, improved compared to previous, and continues to be reported to be mildly tender to palpation; no edema of b/l legs Skin: Warm and dry Neuro: CNII-XII grossly intact; no facial asymmetry; normal speech Psych: Appropriate mood, affect, and responses to questioning; good insight and judgment. Patient is consistently in good spirits Lab and Diagnostics Result Diagram: 11/19/1639911/19/16399 Microbiology Name: MAE BEAUCHAMP Age/Sex: 31/F Attend Dr: Daryl Aguilar MD Acct: [id number] Unit: [id number] Status: ADM IN Location: [facility] 2018-10 Re11/06/16 Disch: Specimen: [id number] Collected: 11/06/16 Status: COMP Req#: [id number] Received: 11/06/16 Source: URINE CC Sp Desc : PP Subm Dr: Rashad Solis MD Ordered: URINE CULT Procedure Result Verified Site Microbiology ZUHAIR CULT URINE Final 11/08/1649 Organism 1 MIXED UROGENITAL SAMEER U COLONY COUNT/QUANTITY 50,000-100,000 CFU/ml Blood cultures are negative. X-Rays, CTs and MRIs Chest x-ray before and after right IJ central line is unremarkable. Assessment & Plan Ms. Mae Beauchamp is an extremely pleasant 31 year old woman that recently moved to the [facility] from the [facility] with a complex history of Crohn 's disease s/p ileostomy after colectomy performed at [facility] in [place], [place]. She is on chronic glucocorticoids with recent initiation of Humira therapy, multiple prior obstructions/near obstructions near ostomy, recurrent flares, and recent left UE DVT secondary to PICC placement for TPN, who presented to the ED with acute on chronic diffuse abdominal pain, cramping, nausea, vomiting, and progressive weakness. She was admitted for evaluation and treatment of hypovolemic shock secondary to exacerbation of Crohn's and stenotic ostomy site. - Hospital day 15 Acute exacerbation of Crohn's disease with ostomy stenosis, present on admission. Ongoing - Home Rx: penitentiary glucocorticoid with taper and Humira - GI has been consulted; appreciate time and recommendations - Colonoscopy with stoma dilation completed 11/11; final report by Dr. Valdez completed - Restart tube feeds, encourage po intake as tolerated - 11/15: Humira 40mg SQ x1 provided; dose from home - Repeat dilation of ostomy planned for today 11/19/2016; will await final report Suspected adrenal insufficiency secondary to penitentiary steroid use, acute, present on admission. Under therapy - Home Rx: Prednisone 20mg daily - Stress dose steroids completed: Solu-Cortef 100mg q8 - Continue prednisone taper at 15mg daily starting 11/19 Hypocalcemia, acute, present on admission. Under evaluation and treatment - On admit: 5.7 - Correction for albumin 11/19: 9.4 - Monitor Hyponatremia, acute, present on admission. Resolved - On admit: Na 123--> improved - H/o hyponatremia in previous hospitalizations likely secondary to poor po intake - Continue to address nutritional needs and underlying etiology of n/v - No IVF at this time Severe protein/calorie malnutrition, chronic. Under evaluation - H/o BMI < 18.5; seen on multiple admissions - H/o TPN requirements - Nutrition following - Dobhoff in place for feedings - Likely require tube feeding via Dobhoff at [place]; not candidate for TPN - Resume tube feeds - Encourage po intake as tolerated - Discussed possibility of PEG with GI: NOT recommended - Dobhoff to remain as patient will need tube feedings for 3 months or longer - Encourage high quality po intake Hypovolemic shock, acute, present on admission. Resolved - Likely secondary to decrease in po intake in days leading to admission - Currently stable Possible sepsis, acute, present on admission. Resolved - Unlikely as Dx - DC'd Zosyn Left upper extremity DVT, acute, present on admission. Under therapy - Secondary to previous PICC placement; Dx October 2016 - Fondaparinux 5mg qhs x6 mo therapy - Resumed Bilateral lower extremity edema, acute, not present on admission. Under therapy - Home Rx: Lasix 20mg daily - Continue home dosing - Monitor Chronic pain. Managed - Long-standing issue; patient reports constant pain - Dilaudid 1-2mg IV q3h prn Anxiety, chronic. Managed - Home Rx: Diazepam 1mg TID prn - Changed to lorazepam - Admin IV prn - Provide Ativan Rx at DC Weakness, acute, present on admission. Ongoing - Likely secondary to poor po intake, poor nutritional status, and repeated hospitalizations - PT to continue while hospitalized - Recs include SNF placement - Patient would prefer options - Encourage patient to sit up to chair > x3 daily - Encourage mobility to prevent further deconditioning - Will need extensive PT during stay and at [place] Microcytic, hypochromic anemia, chronic. Stable - Likely secondary to poor nutrition, as above - Treat underlying causes - Optimize nutritional supplementation - S/p 1U pRBC 11/15 - DVT: Therapeu fondaparinux 5mg qhs - Diet: Tube feeds + po - GI: None - PRN bowel/fever/pain/antiemetic - Code: FULL CODE - Time spent: estimated 35 minutes of care provided; greater than 50% spent on coordination of care and counseling. Dispo: Likely to remain 1-2 additional days while GI continues to assess and nutritional plan developed. Will await DC for post endoscopy to assess tolerance of procedure. Will work with GI for nutritional and steroid plan. Will make CHILDCARE AIDE aware of any nutritional needs, such as outpatient tube feeds vs TPN, when decided. At this time, tube feeding via Dobhoff. Likely to DC 11/20 if stable. Patient was in process of becoming established at [facility], but has been hospitalized numerous times and has not been able to attend her scheduled appointments. Will need follow up to establish care and continue care , in addition, to GI follow up with Dr. Valdez. Discussion with GI included topic of PEG placement. Patient is not ideal candidate for PEG, and PEG may be more detrimental than beneficial. Hopefully, she can tolerate the Dobhoff for to maintain nutrition, after discussion with GI today they also agreed that the patient may need 3 months or more of tube feeding in order for the patient to be able to maintain her nutrition status. Because the patient has been back and forth between the hospital and home due to her poor absorption, she may need more than 3 months worth of tube feedings. The current goal for the patient is to DC home safely and continue her tube feedings from home. Currently the patient is still very weak and has a lot of fluid in her lower extremities. Once the patient is stable enough and it is clinically safe for the patient to be discharged home, she will continue feedings at home and follow-ups with Dr. Valdez. Pain Evaluation: Adequate Pain Control GI Prophylaxis: Not indicated VTE Prophylaxis: Sub-Q Fondaparinux VTE Mechanical Devices: Venous Foot Pump Resuscitation Status: CPR: Attempt Resuscitation Elissa Arteaga DO Nov 19, 2016 12:57 Satish Hernández MD Nov 19, 2016 20:04
[2016-11-19] MEDS: Lactated Ringer's 1,000 ML IV SCH ×3 (13:07→13:57)
--- NOTE | 2016-11-19 14:25 | PCM.ANEP1 ---
Post Anesthesia Phase 1 PACU Phase 1 Assessment Vital Signs Vital Signs Date Time Temp Pulse Resp B/P Pulse Ox O2 Delivery O2 Flow Rate FiO2 11/19/16 14:22 88 14 100/66 100 Room Air 11/19/16 14:15 74 16 95/65 100 Nasal Cannula 2 11/19/16 14:05 77 14 95/64 100 Room Air 11/19/16 12:21 36.7 89 16 101/64 94 Room Air 11/19/16 12:20 36.7 94 16 101/64 99 Room Air 11/19/16 10:21 79 11/19/16 08:50 36.3 98 16 114/74 94 Room Air Anesthetic Administered: MAC Level of Alertness: Awake, talking PERALTA's with Equal Strength: Yes Pain: Yes Pain Scale Score: 8 Nausea or Vomiting: No Oxygen Delivery: Nasal Cannula Lungs: Clear to Auscultation, Normal Air Movement Dermatome Level: Full Sensation Vahid Hilario MD Nov 19, 2016 14:25
--- NOTE | 2016-11-19 14:25 | PCM.ANEP2 ---
Post Anesthesia Evaluation ASA/CMS Post Anesthesia VS in Patient's Normal Range?: Yes Resp Stable; Airway Patent?: Yes CV Function & Hydration Stable: Yes Mental Status Recovered?: Yes Pain control Satisfactory?: Yes N/V Control Satisfactory?: Yes Vahid Hilario MD Nov 19, 2016 14:25
--- NOTE | 2016-11-19 14:51 | ENDO ---
[address] [address] ENDOSCOPY PROCEDURE PATIENT: MAE FELIZ : 1985 MR#: [id number] ADMIT: 11/06/2016 JOB ID: [id number] DATE OF SERVICE: 11/19/2016 PRIMARY PROVIDER: Karissa Vicente DO. PROCEDURE: Terminal ileoscopy with balloon dilatation under fluoroscopy. INDICATIONS: A 31-year-old female with complex Crohn's. She has stomal stenosis. She remains hospitalized with severe malnutrition. She was successfully dilated one week ago. Repeat inspection and dilatation are pursued today. EQUIPMENT: [id number]. SEDATION: Monitored anesthesia as provided by Dr. Vahid Hilario. COMPLICATIONS: None identified. PROCEDURE INFORMATION: After the risks and benefits were explained, written and verbal informed consent was obtained. The patient was brought into the endoscopy suite and placed into the supine position on the fluoro bed. Her stoma bag was removed and attempted digital insertion into the stoma was made but I could not get even a partial index finger through into the ileum. Severe stomal stenosis had once again occurred. Using the XP scope, we, with a small amount of pressure, were able to find our way into the terminal ileum. The prep was again suboptimal. The patient had attempted some GoLYTELY this morning but apparently had steak yesterday evening. At any rate, we did not get a great look but again identified what appeared to be two lumens almost consistent with a J-pouch type anastomosis. We found the lumen that seem to carry on to the more proximal GI tract traverse this for perhaps 20 cm past a 450 cm straight Jagwire. We then removed the scope, left the wire in place and advanced a 10-12 mm CRE balloon over the wire across the stoma. We then dilated to 10 mm and held this for approximately 2 minutes. There was still a small amount of waist seen on the balloon even at 2 minutes. We took this down and then dilated it back up to 11. A waist persisted. We kept the balloon in position for about 2 minutes. We then took it down and ultimately inflated it up to the 12 mm setting. There was a fairly persistent waist in the balloon that over a 2 minute dilatation appeared to almost completely, but certainly not totally, dissipate. After the balloon dilatation, there was prompt evacuation of her bowel which required a lot of towels to clean up. I could then fairly easily introduce the XP scope into the terminal ileum once again. The procedure was then terminated, the scope removed from the patient who tolerated everything quite well. FINDINGS: As described above. Tight stomal stenosis, status post dilatation to 12 mm. Unusual end-ileostomy anastomosis suggestive of a J-pouch type format. Scattered erythema was seen but arguably, inflammation was reduced when compared to last week. ENDOSCOPIC DIAGNOSES: 1. Tight, irregular, fibrotic stomal stricture, recurrent and persistent. 2. Unusual end-ileostomy anastomosis anatomy. 3. Mild ileitis. RECOMMENDATIONS: 1. Continue aggressive nutrition therapy. 2. Any p.o. that the patient chooses to chew needs to be done extensively. I would recommend she avoid meats and raw, sizable vegetable matter. Certainly, any and all veggies, fruits, nuts and seeds can be blenderized or pulverized into smoothie format for optimization of nutrition. 3. Fondaparinux can be restarted this evening. 4. The patient can resume tube feeds immediately. 5. Will monitor clinical response to the dilatation here today. I think that ultimately the patient is indeed going to require surgical revision of her stoma. It would certainly be to the patient's benefit if we can get her nutrition status markedly improved where surgical intervention would be much safer and less likely fraught with adverse outcomes.
--- NOTE | 2016-11-19 14:58 | NUR ---
NUTRITION FOLLOW UP Assess: 31 YO F with sepsis, dehydration, and Crohns. Pt with multiple recent admissions. Dobbhoff tube placed on 11/09. Pt not a candidate for TPN or PEG. Pt was tolerating TF of Vital 1.5 at goal rate (~75% of est needs). Formula changed on 11/17 to Jevity 1.5 per request from [facility] d/t issues with insurance coverage. Pt reported mild abdominal discomfort but feels it is manageable. Pt amenable to trying bolus feedings. TFs held starting at 0500 as pt had another dilation this afternoon. PMHx: Crohns, DVT, Steroid dependence, PE. LABS: [employer]<0.30, Ca 7.6, ALT 41, Albumin 1.8 MEDICATIONS: Reviewed. Prednisone, Zofran CURRENT DIET: General + magic cup. PO intake 50-100% NUTRITION SUPPORT: Jevity 1.5 @ 30 ml/hr providing 1035 kcal and 44g protein (73% of kcal needs, 63% protein needs) GI symptoms/stool: Stool via ileostomy - 200 ml output 11/18 SKIN: Wilfr[place] 17 ANTHROPOMETRICS: Current Wt: 51.2 kg BMI: 18.8 kg/m2 Admit Wt: 47.3 kg (BMI: 17.4 kg/m2) IBW: 56.8 kg ESTIMATED NEEDS: Calories: 0021-5870 kcal/d (30-35 kcal/kg Admit Wt) Protein: 70-85 g/d (1.2-1.5 g/kg IBW) Fluids: 0387-3248 ml/d (1 ml/kcal/d) NUTRITION DIAGNOSIS: 1) Severe malnutrition related to GI abnormalities as evidenced by malabsorption, inability to meet 75% of est needs for 1+ months, BMI <18.5 kg/m2, and loss of LBM and subcutaneous fat.---IMPROVED, pt eating and on TF INTERVENTION: 1) Recommend continuing Jevity 1.5 @ 30 ml/hr post-dilation. 2) Will begin trialing bolus gravity feedings tomorrow morning (11/20) starting w/ 115 ml @ 0800. If pt tolerates, recommend increasing bolus to 175 ml @ 1200. If pt tolerated second bolus, advance to goal bolus of 230 ml @ 1800. 3) Goal regimen: 230 ml Jevity 1.5 3x/d (0800, 1200, and 1800) via gravity. 4) If pt does not tolerated gravity feedings or gravity feeds are not feasible, recommend using pump. 5) Nutrition plan discussed with nursing. MONITOR/EVALUATE: TF tolerance, bolus vs continuous feedings, PO intake, labs, wt, GI, nutrition status, POC. Follow per high nutrition risk guidelines
[2016-11-19] MEDS ORDERED: HYDROmorphone 1 mg/mL Inj IVPUSH SCH (15:30)
[2016-11-20] VITALS (7 sets, daily range): BP systolic 100–124; BP diastolic 65–82; PULSE 76–98; RESP 16–18; O2SAT 94–98
[2016-11-20] MEDS: HYDROmorphone 1 mg/mL Inj IVPUSH PRN ×9 (03:18→19:43)
[2016-11-20] MEDS: Ondansetron 2 mg/mL 2 mL Inj IVPUSH PRN ×2 (03:39→19:43)
[2016-11-20 03:42] LABS: BASOPHILS % (AUTO) 0.2 % (0-3); EOSINOPHILS % (AUTO) 0 % (0-5); MONOCYTES % (AUTO) 12.1 % (4-12); Mean Corpuscular Hemoglobin 25.8 pg (27.0-35.0); Mean Corpuscular Volume 85.3 fL (81-100); NEUTROPHILS % (AUTO) 69.1 % (40-74); Platelet Count 316 bil/L (150-400)
[2016-11-20 04:22] LABS: Magnesium 2.1 mg/dL (1.6-2.6); Phosphorus 5.7 mg/dL (2.5-4.9)
--- NOTE | 2016-11-20 04:41 | NUR ---
Tube Feeding / Pain At HS, Dobhoff clogged and did not flush with pump feedings or water; unable to receive any tube feedings from approx. 1830 to 2030; Dobhoff cleared with firm pressure flush of warm water through side port. Tube feedings initiated at 10ml/hr, adjusted to 30ml at approx. 0000. Pt denies any distension, reports slight nausea at approx. 0345, Zofran administered. At HS, pt c/o pain unrelieved by 2mg Dilaudid; paged; Dilaudid order increased to 2-4mg Q3H PRN. Pt reports pain at 7-8/10 prior to pain medication administration, states relief only to approx. 5-7/10 on reassessment. When asked if Dilaudid ever allowed her to reach pain goal of 4/10, pt stated it did not. Pt educated to use of pain medication and encouraged to utilize range for pain control. Pt requested additional dosing after the 0300 Dilaudid administration of 1mg; 1mg additional given; upon reassessment, pt stated the additional mg still not effective for pain relief and requested last 1mg of 2-4mg range. Upon reassessment for total 4mg of Dilaudid, pt resting comfortably. VSS. Tele ST 100s.
[2016-11-20] MEDS: predniSONE 10 mg Tablet PO SCH (08:06)
--- NOTE | 2016-11-20 12:39 | NUR ---
Tube Feed Tube feeding bolus done this am 115mls. Tolerated well but then complained of 8/10 cramping. Pain medications given Q3 hours around the clock. When it came time to bolus for lunch pt refused, stating it will kill her stomach. Will inform MD.
--- NOTE | 2016-11-20 13:22 | NUR ---
NUTRITION FOLLOW UP Assess: 31 YO F with sepsis, dehydration, and Crohns. Pt with multiple recent admissions. Dobbhoff tube placed on 11/09. Pt not a candidate for TPN or PEG. Pt was tolerating TF of Vital 1.5 at goal rate (~75% of est needs). Formula changed on 11/17 to Jevity 1.5 per request from [facility] d/t issues with insurance coverage. Bolus at 115 ml (half of goal) trialed this morning. Pt did not tolerate bolus feeding, reporting pain and nausea immediately following bolus. Pt asked to not have noon bolus, stating that it would kill my stomach. PMHx: Crohns, DVT, Steroid dependence, PE. LABS: Fleet Administrative Assistant<0.30, Ca 7.6, Phos 5.7, ALT 40, Albumin 1.8 MEDICATIONS: Reviewed. Prednisone, Zofran CURRENT DIET: General + magic cup. PO intake 50-100% (11/19) x1 refusal. NUTRITION SUPPORT: Jevity 1.5 @ 30 ml/hr providing 1035 kcal and 44g protein (73% of kcal needs, 63% protein needs) GI symptoms/stool: Stool via ileostomy - 200 ml output 11/18 SKIN: Wilfrido 17 ANTHROPOMETRICS: Current Wt: 50.5 kg BMI: 18.5 kg/m2 Admit Wt: 47.3 kg (BMI: 17.4 kg/m2) IBW: 56.8 kg ESTIMATED NEEDS: Calories: 8238-9371 kcal/d (30-35 kcal/kg Admit Wt) Protein: 70-85 g/d (1.2-1.5 g/kg IBW) Fluids: 4007-3960 ml/d (1 ml/kcal/d) NUTRITION DIAGNOSIS: 1) Severe malnutrition related to GI abnormalities as evidenced by malabsorption, inability to meet 75% of est needs for 1+ months, BMI <18.5 kg/m2, and loss of LBM and subcutaneous fat.---IMPROVED, pt eating and on TF INTERVENTION: 1) Unable to do gravity feeds d/t pt being on NG. 2) Recommend restarting pt on continuous feeds w/ Jevity 1.5 @ 30 ml/hr via pump d/t pt not tolerating bolus at half of her goal. 3) Discussed outcomes and recommendation w/ Sheila at [facility]. MONITOR/EVALUATE: TF tolerance, PO intake, labs, wt, GI, nutrition status, POC. Follow per high nutrition risk guidelines
--- NOTE | 2016-11-20 16:32 | NUR ---
Social Work: Readiness for Discharge D: Pt discussed in am rounds. MD and nutrition is trying to get pt to goal on tube feeds. Pending this course throughout the day, pt may be ready for discharge home today. EMR reviewed; pt continues to ambulate with PT for and current recommendation is for Home with HH. Pt will also require tube feeds through [facility]. ROOF PANEL HANGER met with pt at bedside to confirm discharge plan. Pt states that she feels confident with plan. ROOF PANEL HANGER provide HH Choice list- pt states she does not have a preference. [facility] was initially referred and will stay with them. ROOF PANEL HANGER also provided with with a copy of the [facility] application as her health condition is likely to result in future admissions and increasing needs. Pt appreciative and declined to have [facility] come to help her complete the application. ROOF PANEL HANGER spoke with Frank Ndiaye with [facility] who states they have everything they need to begin tube feeds once the pt is medically ready. He has access and is continuing to follow. A: Pt who lives at home with her mother and is I P: Anticipate pt to discharge home via P[facility] with [facility] and [facility] for Tube Feeds. ASHYLN Johnson
--- NOTE | 2016-11-20 17:50 | PCM.PNMED ---
Subjective Date of Service Nov 20, 2016 Subjective Overnight: Increased abdominal pain. Today: Increased abdominal pain and cramping continues. Denies SOB, chest pain. Abdominal pain reported as severe, requiring increase in pain medications. Does not appear as happy as prior days. Not tolerating tube feeds well with bolus rates. Refused afternoon bolus secondary to pain. Denies any extremity pain. Exam Vital Signs Vital Sign - Last Date Time Temp Pulse Resp B/P Pulse Ox O2 Delivery O2 Flow Rate FiO2 11/20/16 12:12 37.2 88 18 112/72 98 Room Air 11/19/16 14:15 2 Intake and Output 11/19/16 11/19/16 11/20/16 Cumulative From/Thru 15:00 23:00 07:00 11/06/16 10:38 - 11/20/16 06:43 Intake Total 400 ml 0 ml 737 ml 21800 ml Output Total 1000 ml 2450 ml 17574 ml Balance 400 ml -1000 ml -1713 ml 58237 ml Intake Oral 0 ml 275 ml 50528 ml IV Total 400 ml 55309 ml Tube Feeding 185 ml 4067 ml TPN/PPN 0 ml 0 ml Packed Cells 300 ml Tube Irrigant 277 ml 1717 ml Output Urine Total 1000 ml 2450 ml 12337 ml Stool Total 4985 ml # Bowel Movements 2 2 Exam General: Frail, extremely thin woman, no acute distress; resting supine in bed; extremely pleasant, but appears depressed today HENT: Atraumatic; cushinoid-facies; mucus membranes moist; NGT in place and secured Neck: No pain with ROM, trachea midline Cardiac: Accentuated sounds secondary to habitus, regular rate and rhythm Respiratory: Adequate air flow all castillo; no coarse sounds appreciated Abdomen: Ileostomy in place; no distention; moderate pain with palpation. Significant amount of stool in the ileostomy bag. Extremities: BL feet with trace edema, improved compared to previous, denies pain with palpation; no edema of b/l legs Skin: Warm and dry Neuro: CNII-XII grossly intact; no facial asymmetry; normal speech Psych: Appropriate mood, affect, and responses to questioning; good insight and judgment. Appears more depressed and not as optimistic today compared to previous days Lab and Diagnostics Result Diagram: 11/20/16 0325 11/20/16 0325 Microbiology Name: MAE BEAUCHAMP Age/Sex: 31/F Attend Dr: Daryl Aguilar MD Acct: [id number] Unit: [id number] Status: ADM IN Location: [facility] 2018-10 Re11/06/16 Disch: Specimen: [id number] Collected: 11/06/16 Status: COMP Req#: [id number] Received: 11/06/16 Source: URINE CC Sp Desc : PP Yair Dr: Rashad Solis MD Ordered: URINE CULT Procedure Result Verified Site Microbiology ZUHAIR CULT URINE Final 11/08/16 Organism 1 MIXED UROGENITAL SAMEER U COLONY COUNT/QUANTITY 50,000-100,000 CFU/ml Blood cultures are negative. X-Rays, CTs and MRIs Chest x-ray before and after right IJ central line is unremarkable. Assessment & Plan Ms. Mae Beauchamp is an extremely pleasant 31 year old woman that recently moved to the [facility] from the [facility] with a complex history of Crohn 's disease s/p ileostomy after colectomy performed at [facility] in [place], [place]. She is on chronic glucocorticoids with recent initiation of Humira therapy, multiple prior obstructions/near obstructions near ostomy, recurrent flares, and recent left UE DVT secondary to PICC placement for TPN, who presented to the ED with acute on chronic diffuse abdominal pain, cramping, nausea, vomiting, and progressive weakness. She was admitted for evaluation and treatment of hypovolemic shock secondary to exacerbation of Crohn's and stenotic ostomy site. - Hospital day 16 Recurrent stomal stenosis, chronic. Ongoing - Patient has had multiple dilatations per GI - Most recent dilatation: 11/19 - GI recs: - PO intake should be chewed well - Avoid meats and raw vegetables, unless pulverized in wood treating inspector into smoothie format - Continue tube feeds and nutrition - May require complete revision in future; will need adequate nutrition prior and maintenance of optimal health to achieve best post-surgical outcomes Acute exacerbation of Crohn's disease with ostomy stenosis, present on admission. Ongoing - Home Rx: termite control servicer glucocorticoid with taper and Humira - GI has been consulted; appreciate time and recommendations - Colonoscopy with stoma dilation completed 11/11; final report by Dr. Valdez completed - Restart tube feeds, encourage po intake as tolerated - 11/15: Humira 40mg SQ x1 provided; dose from home - Repeat dilation completed 11/19: Tight stomal stenosis that required multiple dilatations, as noted above Suspected adrenal insufficiency secondary to prison steroid use, acute, present on admission. Under therapy - Home Rx: Prednisone 20mg daily - Stress dose steroids completed: Solu-Cortef 100mg q8 - Continue prednisone taper at 15mg daily starting 11/19 Hypocalcemia, acute, present on admission. Under evaluation and treatment - On admit: 5.7 - Correction for albumin 11/19: 9.4 - Monitor Hyponatremia, acute, present on admission. Resolved - On admit: Na 123--> improved - H/o hyponatremia in previous hospitalizations likely secondary to poor po intake - Continue to address nutritional needs and underlying etiology of n/v - No IVF at this time Severe protein/calorie malnutrition, chronic. Under evaluation - H/o BMI < 18.5; seen on multiple admissions - H/o TPN requirements - Nutrition following - Dobhoff in place for feedings - Likely require tube feeding via Dobhoff at DC; not candidate for TPN - Resume tube feeds - Encourage po intake as tolerated - Discussed possibility of PEG with GI: NOT recommended - Dobhoff to remain as patient will need tube feedings for 3 months or longer - Encourage high quality po intake Hypovolemic shock, acute, present on admission. Resolved - Likely secondary to decrease in po intake in days leading to admission - Currently stable Possible sepsis, acute, present on admission. Resolved - Unlikely as Dx - DC'd Zosyn Left upper extremity DVT, acute, present on admission. Under therapy - Secondary to previous PICC placement; Dx October 2016 - Fondaparinux 5mg qhs x6 mo therapy - Resumed Bilateral lower extremity edema, acute, not present on admission. Under therapy - Home Rx: Lasix 20mg daily - Continue home dosing - Monitor Chronic pain. Managed - Long-standing issue; patient reports constant pain - Dilaudid 1-2mg IV q3h prn - Will need pain medications for pain management for home use - Determining pain regimen prior to DC Anxiety, chronic. Managed - Home Rx: Diazepam 1mg TID prn - Changed to lorazepam - Admin IV prn - Provide Ativan Rx at DC Weakness, acute, present on admission. Ongoing - Likely secondary to poor po intake, poor nutritional status, and repeated hospitalizations - PT to continue while hospitalized - Recs include SNF placement - Patient would prefer options - Encourage patient to sit up to chair > x3 daily - Encourage mobility to prevent further deconditioning - Will need extensive PT during stay and at DC Microcytic, hypochromic anemia, chronic. Stable - Likely secondary to poor nutrition, as above - Treat underlying causes - Optimize nutritional supplementation - S/p 1U pRBC 11/15 - DVT: Therapeu fondaparinux 5mg qhs - Diet: Tube feeds + po - GI: None - PRN bowel/fever/pain/antiemetic - Code: FULL CODE - Time spent: estimated 35 minutes of care provided; greater than 50% spent on coordination of care and counseling. Dispo: Likely to remain 1-2 additional days while GI continues to assess and nutritional plan developed. Will await DC for post endoscopy to assess tolerance of procedure. Will work with GI for nutritional and steroid plan. Will make JUMPBASTING FACING BASTER aware of any nutritional needs, such as outpatient tube feeds vs TPN, when decided. At this time, tube feeding via Dobhoff. Likely to DC 11/20 if stable. Patient was in process of becoming established at [facility], but has been hospitalized numerous times and has not been able to attend her scheduled appointments. Will need follow up to establish care and continue care , in addition, to GI follow up with Dr. Valdez. Discussion with GI included topic of PEG placement. Patient is not ideal candidate for PEG, and PEG may be more detrimental than beneficial. Hopefully, she can tolerate the Dobhoff for to maintain nutrition, after discussion with GI today they also agreed that the patient may need 3 months or more of tube feeding in order for the patient to be able to maintain her nutrition status. Because the patient has been back and forth between the hospital and home due to her poor absorption, she may need more than 3 months worth of tube feedings. The current goal for the patient is to DC home safely and continue her tube feedings from home. Currently the patient is still very weak and has a lot of fluid in her lower extremities. Once the patient is stable enough and it is clinically safe for the patient to be discharged home, she will continue feedings at home and follow-ups with Dr. Valdez. Pain Evaluation: Adequate Pain Control GI Prophylaxis: Not indicated VTE Prophylaxis: Sub-Q Fondaparinux VTE Mechanical Devices: Venous Foot Pump Resuscitation Status: CPR: Attempt Resuscitation Attending Statement She is seen and examined. Chart reviewed and case discussed with Dr. Gabbi Arteaga at length. I agree with the above note. Elissa Arteaga DO Nov 20, 2016 17:50 Satish Hernández MD Nov 20, 2016 19:19
--- NOTE | 2016-11-21 01:02 | PROG NOTE ---
[address] [address] PROGRESS NOTE PATIENT: MAE FELIZ : 1985 MR#: [id number] ADMIT: 11/06/2016 JOB ID: [id number] DATE: 11/20/2016 SUBJECTIVE: The patient did well following the procedure. She, however, has been experiencing increased cramping and abdominal discomfort with the change in tube feeds. There has been no bleeding following the dilatation. OBJECTIVE: Vitals are stable. Patient in no distress, sitting up at the side of the bed today. Legs look quite a bit improved with far less edema. LABORATORIES: CBC is stable, albumin is 1.8. ASSESSMENT AND RECOMMENDATIONS: A 31-year-old female with complex Crohn's. This is complicated by left upper extremity subclavian deep venous thrombosis and pulmonary emboli. Ultimately, I think she is going to need surgery for stoma revision, but right now the nutritional status needs to improve quite dramatically in advance of any surgical intervention. As stated above, the patient could easily need another up to three months of tube feeds. I would recommend switching back to the tube feed she was on initially in that this was much better tolerated for the patient. As far as discharge home, I would leave this to the discretion of physical therapy. The patient is clearly improving with her strength and endurance, and when she feels that she can safely maneuver around her own home I see no reason why she cannot continue with her convalescence and nutritional therapy at her house. If the patient is discharged, I would like to see her in followup in approximately one week from discharge.
[2016-11-21] MEDS: HYDROmorphone 1 mg/mL Inj IVPUSH PRN ×5 (02:32→15:11)
[2016-11-21 04:18] LABS: BASOPHILS % (AUTO) 0.2 % (0-3); EOSINOPHILS % (AUTO) 0.2 % (0-5); Mean Corpuscular Hemoglobin 26.1 pg (27.0-35.0); Mean Corpuscular Volume 86.2 fL (81-100); NEUTROPHILS % (AUTO) 72.7 % (40-74); Platelet Count 284 bil/L (150-400)
[2016-11-21 04:19] VITALS: BP 108/71; PULSE 79; RESP 16; O2SAT 95
[2016-11-21] MEDS: LORazepam 0.5 mg Tablet PO PRN (04:38)
[2016-11-21 04:48] LABS: Magnesium 2.1 mg/dL (1.6-2.6); Phosphorus 4.6 mg/dL (2.5-4.9)
--- NOTE | 2016-11-21 05:11 | NUR ---
Mobility / Pain Pt ambulating with SBA to BS and W; tolerating well, denies dyspnea or dizziness on exertion. Voiding spontaneously after rodriguez removal 11/20/16 at 1700. Pt reports 8/10 pain at HS despite recent administration of oxycodone; pt states ineffective entirely for pain. 3mg Dilaudid administered, pt reports relief upon reassessment. Pt educated to plan to attempt weaning of IV Dilaudid, agreeable to try. At approx. 2300, oxycodone administered for prophylaxis; pt reported pain at 4/10 and stated "This is the first time I've felt comfortable since I've been here." By approx. 0200, pt began requesting pain medication. Discussed plan of care with pt since oxycodone wouldn't be available until 0300; pt verbalized understanding and requested Dilaudid instead. Upon discussion with pt, pt reported oxycodone very minimally effective for pain control, with relief only from 2-3mg of Dilaudid Q3H. VSS, tele SR 70s.
[2016-11-21 05:21] VITALS: PULSE 85
[2016-11-21 08:00] VITALS: PULSE 81
[2016-11-21 08:05] VITALS: BP 110/68; PULSE 100; RESP 16; O2SAT 98
[2016-11-21] MEDS: predniSONE 10 mg Tablet PO SCH (08:57)
[2016-11-21 11:54] VITALS: BP 110/73; PULSE 102; RESP 18; O2SAT 96
--- NOTE | 2016-11-21 12:26 | NUR ---
Ambulate w/Nsg; DC from PT Pt has met all PT goals and is discharged from PT at this time. Pt to cont ambulation w/nsg w/FWW SBA 2-3x/day as pt tolerates.
[2016-11-21] MEDS ORDERED: PRE10 PO (13:59)
[2016-11-21] MEDS ORDERED: OXYC15TA45 PO (13:59)
[2016-11-21] MEDS ORDERED: FUR20 PO (13:59)
[2016-11-21] MEDS ORDERED: LORA1TAB PO (13:59)
[2016-11-21] MEDS ORDERED: OXYC-474 PO (13:59)
--- NOTE | 2016-11-21 15:29 | PCM.DIMED ---
ChandlerElissa Oliver TAYLOR 11/21/16 1400: Discharge Instructions Date of Service Nov 21, 2016 Dates of Hospitalization Nov 06, 2016 at 13:32 Discharge Diagnosis Discharge Diagnosis Recurrent stomal stenosis, chronic. Ongoing Acute exacerbation of Crohn's disease with ostomy stenosis, present on admission. Ongoing Suspected adrenal insufficiency secondary to terminal computer operator steroid use, acute, present on admission. Under therapy Hypocalcemia, acute, present on admission. Under evaluation and treatment Hyponatremia, acute, present on admission. Resolved Severe protein/calorie malnutrition, chronic. Under evaluation Hypovolemic shock, acute, present on admission. Resolved Possible sepsis, acute, present on admission. Resolved Left upper extremity DVT, acute, present on admission. Under therapy Bilateral lower extremity edema, acute, not present on admission. Under therapy Chronic pain. Managed Anxiety, chronic. Managed Weakness, acute, present on admission. Ongoing Microcytic, hypochromic anemia, chronic. Stable Medication Instructions PRESCRIPTIONS PROVIDED/hard copies ATIVAN (lorazepam) - 1mg tabs orally q4-6h as needed anxiety - Please take one-half tab (0.5mg) as needed - Attempt to use as sparingly as possible ROXICODONE (oxycodone) - 15mg tabs provided - Try to schedule 15mg 2-3 times daily - Attempt to taper down over course of next week LASIX (furosemide) 20mg tabs - Take one tab daily - This is a diuretic, 'water pill' that reduces swelling and edema - You may not need this daily if you increase your mobility and do not notice your feet are swollen PREDNISONE 10mg tabs - Take 15mg daily (One and one-half tabs) - Discuss with dr. Valdez your taper schedule ENTERAL TUBE FEEDS - Continue these for minimum THREE months - These will be managed by [facility] - Please contact them with any questions or concerns ADDITIONAL INFO: - Continue your Humira as scheduled - Continue your prednisone at 15mg daily at this time until you follow up with Dr. Valdez - Continue tube feeds as tolerated Diet No restrictions, Other (Protein-rich) Activity Home Health Phyical Therapy Call your provider Fever or Chills, Shortness of breath, Bleeding, Chest pain, Excessive diarrhea, Weakness (unilateral) Patient Instructions - Please try to keep pain medications at a minimum - Chew your food well! Avoid meats and bulky raw vegetables. If you choose to eat these, please chew them well, or you can make smoothies and place fruits and veggies in a cementer oil well. - You may need a complete revision of your stoma in the future. Please follow up with GI to discuss further. - You will need adequate nutrition prior to any major intervention such as that. - Please continue tube feedings, and increase your oral intake with protein rich foods - As you continue to receive nutrition, you should become stronger, and will better be able to tolerate a procedure - Keep working with physical therapy! It will take a while, but you'll continue to get stronger as you keep working! You are doing great! - We understand the tube in your nose is uncomfortable, but it is necessary to get the nutrition to you that you need to regain your strength Follow-up plan - Work with Home Health and physical therapy - [facility] at [facility] when they have an available appointment. You are welcome to see any resident with an opening. We all work together! - Please let the [facility] know if you run out of your medications before you are able to be seen for an appointment. We understand that you have been trying to get over to see us, but have needed to be hospitalized. - Follow up with Dr. Valdez within one week. - If you feel ill again- having sever cramping, decreased stool amount in your ileostomy bag, notice any blood in your bag, or develop fever, chills, nausea, or vomiting, please return to the emergency department for prompt evaluation Follow-up Provider: [facility] Follow-up with PCP in: 1 week (To establish care) Provider: Kirby Valdez MD Follow-up in: 1 week (Must have appt within one week) Satish Hernández MD 11/28/16 0801: Discharge Instructions Attending's Statement Patient was seen and examined. Chart was reviewed and case was discussed with Dr. Gabbi Arteaga at length. I agree with the above note. Elissa Arteaga DO Nov 21, 2016 14:00 Satish Hernández MD Nov 28, 2016 08:01
--- NOTE | 2016-11-21 16:30 | NUR ---
Social Work: Discharge D: Pt discussed in am rounds. Pt expected to discharge home today with continuous tube feeds managed by [facility]. Pt also to require Home Health for RN and PT. POTATO CHIP SACKING MACHINE OPERATOR met with pt at bedside to confirm discharge plan. She and family agree with plan. POTATO CHIP SACKING MACHINE OPERATOR spoke with Kevin Atkins with [facility] to notify that pt is discharging home today. He is aware. F2F faxed. POTATO CHIP SACKING MACHINE OPERATOR spoke with Frank Ndiaye with [facility]; Orders faxed. A: Pt who is I at baseline. P: Pt to discharge home via POV today with [facility] for RN, PT and [facility] for continuous tube feeds. ASHLYN Johnson
--- NOTE | 2016-11-21 17:00 | NUR ---
Discharge Pt. discharged home with mom, Pt. took all her belongings in room 2026 on [facility]. Pt. was instructed to make a follow up appointment with her PCP in 1 week. Pt. stated she understood. Pt. was given educational material on new prescriptions as well as the reason for admit. Pt. was taken to the front where her mom was waiting for her to pick her up, Pt. was taken down in a wheel chair.
--- NOTE | 2016-11-21 20:45 | PCM.DC.MED ---
Discharge Summary Date of Service Nov 21, 2016 Dates of Hospitalization Date of Hospital Admission Nov 06, 2016 at 13:32 Date of Discharge: Nov 21, 2016 Providers: Admitting Physician: Daryl Aguilar MD Primary Care Physician: Lasha Prather DO Attending Physician: Daryl Aguilar MD Diagnosis at Time of Discharge Diagnosis at Time of Discharge Recurrent stomal stenosis, chronic. Ongoing Acute exacerbation of Crohn's disease with ostomy stenosis, present on admission. Ongoing Suspected adrenal insufficiency secondary to fci steroid use, acute, present on admission. Under therapy Hypocalcemia, acute, present on admission. Under evaluation and treatment Hyponatremia, acute, present on admission. Resolved Severe protein/calorie malnutrition, chronic. Under evaluation Hypovolemic shock, acute, present on admission. Resolved Possible sepsis, acute, present on admission. Resolved Left upper extremity DVT, acute, present on admission. Under therapy Bilateral lower extremity edema, acute, not present on admission. Under therapy Chronic pain. Managed Anxiety, chronic. Managed Weakness, acute, present on admission. Ongoing Microcytic, hypochromic anemia, chronic. Stable Consultations Gastroenterology Procedures XRay, CTs & MRIs Chest x-ray before and after right IJ central line is unremarkable. PROCEDURE: X-RAY CHEST ONE VIEW, PORTABLE ([id number]) INDICATIONS: 31 year-old female with nasogastric tube placement. IMPRESSION: New weighted feeding tube is present, with tip in the gastric body. Dictated by: Maikol Guido M.D. on 11/09/2016 at 14:14 Approved by: Maikol Guido M.D. on 11/09/2016 at 14:15 Other Diagnostics ENDOSCOPY 11/19/2016 FINDINGS: As described above. Tight stomal stenosis, status post dilatation to 12 mm. Unusual end-ileostomy anastomosis suggestive of a J-pouch type format. Scattered erythema was seen but arguably, inflammation was reduced when compared to last week. ENDOSCOPIC DIAGNOSES: 1. Tight, irregular, fibrotic stomal stricture, recurrent and persistent. 2. Unusual end-ileostomy anastomosis anatomy. 3. Mild ileitis. RECOMMENDATIONS: 1. Continue aggressive nutrition therapy. 2. Any p.o. that the patient chooses to chew needs to be done extensively. I would recommend she avoid meats and raw, sizable vegetable matter. Certainly, any and all veggies, fruits, nuts and seeds can be blenderized or pulverized into smoothie format for optimization of nutrition. 3. Fondaparinux can be restarted this evening. 4. The patient can resume tube feeds immediately. 5. Will monitor clinical response to the dilatation here today. I think that ultimately the patient is indeed going to require surgical revision of her stoma. It would certainly be to the patient's benefit if we can get her nutrition status markedly improved where surgical intervention would be much safer and less likely fraught with adverse outcomes. Kirby Valdez MD 11/19/16 [id number] <Electronically signed by Kirby Valdez MD> 11/19/16 5307 Brief History History obtained from admission note dated 11/06/2016, composed by Dr. Hong, This is a 31-year-old female who recently relocated to the area. She is staying with her mother. She has a history of Crohn's colitis has been prednisone dependent and had progressive deterioration. She was recently started on Humira. She was in the hospital in September. This is relating to abdominal pain and volume depletion as well as some rectal bleeding. She was discharged and has been doing poorly for the last 10 days. She has had progressive weakness, and has been extremely thirsty. She has been trying to keep up with her fluids by taking Gatorade. She has been having increased abdominal pain above and beyond her baseline pain. She has had about 3 bowel movements a day all loose but free of blood or mucus. No fevers or chills. In the ER she was hypotensive and tachycardiac. She remains tachycardic at 120 and hypotensive at 89 systolic after 2 L of fluid. She denies cough or rhinorrhea fevers or chills. No hematuria or dysuria. She is on chronic prednisone at 25 mg a day. Hospital Course Ms. Mae Beauchamp is an extremely pleasant 31 year old woman that recently moved to the [facility] from the [facility] with a complex history of Crohn 's disease s/p ileostomy after colectomy performed at [facility] in [place], [place]. She is on chronic glucocorticoids with recent initiation of Humira therapy, multiple prior obstructions/near obstructions near ostomy, recurrent flares, and recent left UE DVT secondary to PICC placement for TPN, who presented to the ED with acute on chronic diffuse abdominal pain, cramping, nausea, vomiting, and progressive weakness. She was admitted for evaluation and treatment of hypovolemic shock secondary to exacerbation of Crohn's and stenotic ostomy site. - Hospital day total: 17 Recurrent stomal stenosis, chronic. Ongoing - Patient has had multiple dilatations per GI - Most recent dilatation: 11/19 - GI recs at DC: - PO intake should be chewed well - Avoid meats and raw vegetables, unless pulverized in second class welder into smoothie format - Continue tube feeds and nutrition - May require complete revision in future; will need adequate nutrition prior and maintenance of optimal health to achieve best post-surgical outcomes - Follow up within one week Acute exacerbation of Crohn's disease with ostomy stenosis, present on admission. Ongoing - Home Rx: fci glucocorticoid with taper and Humira - GI was consulted; appreciated time and recommendations - Colonoscopy with stoma dilation completed 11/11; final report by Dr. Valdez completed - Restarted tube feeds, encouraged po intake as tolerated - 11/15: Humira 40mg SQ x1 provided; dose from home - Repeated dilation completed 11/19: Tight stomal stenosis that required multiple dilatations, as noted above Suspected adrenal insufficiency secondary to emt intermediate steroid use, acute, present on admission. Under therapy - Home Rx: Prednisone 20mg daily - Stress dose steroids completed: Solu-Cortef 100mg q8 - Continued prednisone taper at 15mg daily starting 11/19 Hypocalcemia, acute, present on admission. Under evaluation and treatment - On admit: 5.7 - Correction for albumin 11/19: 9.4 - Monitored; normalized at discharge Hyponatremia, acute, present on admission. Resolved - On admit: Na 123--> improved, resolved - H/o hyponatremia in previous hospitalizations likely secondary to poor po intake Severe protein/calorie malnutrition, chronic. Under evaluation - H/o BMI < 18.5; seen on multiple admissions - H/o TPN requirements - Nutrition followed - Dobhoff in place for feedings throughout stay and at discharge - Likely will require tube feeding x3 months or greater via Dobhoff; not candidate for TPN - Encourage po intake as tolerated - Discussed possibility of PEG with GI: NOT recommended - Dobhoff to remain as patient will need tube feedings for 3 months or longer - Encourage high quality po intake Hypovolemic shock, acute, present on admission. Resolved - Likely secondary to decrease in po intake in days leading to admission - Currently stable Possible sepsis, acute, present on admission. Resolved - Unlikely as Dx - DC'd Zosyn Left upper extremity DVT, acute, present on admission. Under therapy - Secondary to previous PICC placement; Dx October 2016 - Fondaparinux 5mg qhs x6 mo therapy - Resumed Bilateral lower extremity edema, acute, not present on admission. Under therapy - Home Rx: Lasix 20mg daily - Continued home dosing - Monitored; Rx provided at DC Chronic pain. Managed - Long-standing issue; patient reports constant pain - Dilaudid 1-2mg IV q3h prn - Provided Roxicodone hard copy Rx at DC to last until patient can be seen by GI or PCP Anxiety, chronic. Managed - Home Rx: Diazepam 1mg TID prn - Changed to lorazepam - Provided Ativan Rx at ID Weakness, acute, present on admission. Ongoing - Likely secondary to poor po intake, poor nutritional status, and repeated hospitalizations - PT continued while hospitalized - Recs included SNF placement, but patient progressed well enough to receive HHPT - Encouraged patient to sit up to chair > x3 daily - Encouraged mobility to prevent further deconditioning - Will need extensive PT at DC Microcytic, hypochromic anemia, chronic. Stable - Likely secondary to poor nutrition, as above - Treat underlying causes - Optimize nutritional supplementation - S/p 1U pRBC 11/15 Patient was [facility], but has been hospitalized numerous times and has not been able to attend her scheduled appointments. Will need follow up to establish care and continue care, in addition, to GI follow up with Dr. Valdez. Discussion with GI included topic of PEG placement. Patient is not ideal candidate for PEG, and PEG may be more detrimental than beneficial. Hopefully, she can tolerate the Dobhoff for to maintain nutrition, after discussion with GI today they also agreed that the patient may need 3 months or more of tube feeding in order for the patient to be able to maintain her nutrition status. Because the patient has been back and forth between the hospital and home due to her poor absorption, she may need more than 3 months worth of tube feedings. The current goal for the patient is to DC home safely and continue her tube feedings from home. Currently the patient is still very weak and some fluid in her lower extremities. Exam Vital Signs (Last) Date Time Temp Pulse Resp B/P Pulse Ox O2 Delivery O2 Flow Rate FiO2 2/17/17 11:54 36.8 102 18 110/73 96 Room Air 11/19/16 14:15 2 Exam General: Frail, extremely thin woman, no acute distress; resting supine in bed; extremely pleasant, in good spirits HENT: Atraumatic; cushinoid-facies; mucus membranes moist; NGT in place and secured Neck: No pain with ROM, trachea midline Cardiac: Accentuated sounds secondary to habitus, regular rate and rhythm Respiratory: Adequate air flow all castillo; no coarse sounds appreciated Abdomen: Ileostomy in place with liquid brown output without evidence edy blood; no distention; mild pain with palpation Extremities: BL feet with trace edema, improved compared to previous, denies pain with palpation; no edema of b/l legs Skin: Warm and dry Neuro: CNII-XII grossly intact; no facial asymmetry; normal speech Psych: Appropriate mood, affect, and responses to questioning; good insight and judgment. Appeared optimistic Test 11/06/16 12:15 11/06/16 12:47 11/06/16 17:28 11/09/16 03:45 Band Neutrophils % 7% (1-5) Troponin T 0.010ug/L (0.0-0.011) Urine Color Dark yellow (YELLOW) Urine Appearance Hazy (CLEAR,HAZY) Urine pH 5.5 (5.0-8.0) Urine Specific [place] 1.025 (1.003-1.035) Urine Protein Negativemg/dL (NEG,TRACE) Urine Glucose (UA) Negativemg/dL (NEGATIVE) Urine Ketones Tracemg/dL (NEGATIVE) Urine Occult Blood Negative (NEGATIVE) Urine Nitrite Negative (NEGATIVE) Urine Bilirubin Negative (NEGATIVE) Urine Urobilinogen Normalmg/dL (NORMAL) Urine Leukocyte Esterase Small (NEGATIVE) Urine RBC 0-2/hpf (0-2) Urine WBC 11-50/hpf (0-5) Urine Epithelial Cells Occasional/hpf (NONE-MOD) Urine Crystals None seen (NONE SEEN) Urine Bacteria Few/hpf (NONE-FEW) Urine Hyaline Casts Occasional/lpf (NONE) Urine Granular Casts None seen (NONE SEEN) Urine Waxy Casts None seen (NONE SEEN) Urine Red Blood Cell Casts None seen (NONE SEEN) Urine White Blood Cell Casts None seen (NONE SEEN) Urine Mucus Present (None Seen) Urine Trichomonas None seen (NONE SEEN) Urine Yeast None (NONE SEEN) Urinalysis Comment None Urine Culture Reflexed Indicated Hemoglobin A1c 4.3% (4.8-5.6) Lactic Acid Level 0.8mmol/L (0.4-2.0) Prealbumin 7mg/dL (20-40) Test 11/10/16 10:43 11/14/16 04:30 11/15/16 04:30 11/21/16 04:10 Ionized Calcium 1.20mmol/L (1.17-1.32) Prothrombin Time 10.8sec (8.1-12.5) Prothromb Time International Ratio 1.01ratio Ionized Calcium (Calculated) 3.79mg/dL (3.5-5.2) Direct Bilirubin 0.2mg/dL (0.0-0.3) Hold Purple Top Tube Received (Received) Hold [place] Top Tube Received (Received) White Blood Count 5.5th/mm3 (3.8-10.1) Red Blood Count 2.83mil/mm3 (3.90-5.20) Mean Corpuscular Volume 86.2fL (81-100) Mean Corpuscular Hemoglobin 26.1pg (27.0-35.0) Mean Corpuscular Hemoglobin Concent 30.3% (32.0-37.0) Red Cell Distribution Width 17.3% (12.3-15.4) Platelet Count 284bil/L (150-400) Neutrophils (%) (Auto) 72.7% (40-74) Lymphocytes (%) (Auto) 13.7% (14-46) Monocytes (%) (Auto) 13.0% (4-12) Eosinophils (%) (Auto) 0.2% (0-5) Basophils (%) (Auto) 0.2% (0-3) Sodium Level 136mEq/L (134-144) Potassium Level 4.1mEq/L (3.5-5.2) Chloride Level 99mEq/L (97-108) Carbon Dioxide Level 32mmol/L (18-29) Blood Urea Nitrogen 11mg/dL (6-20) Creatinine 0.32mg/dL (0.57-1.00) Estimat Glomerular Filtration Rate 345mL/min (>59) Glucose Level 119mg/dL (60-99) Calcium Level 7.6mg/dL (8.5-10.1) Phosphorus Level 4.6mg/dL (2.5-4.9) Magnesium Level 2.1mg/dL (1.6-2.6) Total Bilirubin 0.2mg/dL (0.0-1.2) Aspartate Amino Transf (AST/SGOT) 22U/L (0-50) Alanine Aminotransferase (ALT/SGPT) 35U/L (0-32) Alkaline Phosphatase 98U/L (25-150) Total Protein 3.5g/dL (6.4-8.4) Albumin 1.7g/dL (3.4-5.0) Test 11/21/16 13:10 Hemoglobin 9.4g/dL (12.0-15.6) Hematocrit 31.4% (35.0-46.0) Microbiology Results Name: MAE BEAUCHAMP Age/Sex: 31/F Attend Dr: Daryl Aguilar MD Acct: [id number] Unit: [id number] Status: ADM IN Location: [facility] 2018-10 Re11/06/16 Disch: Specimen: [id number] Collected: 11/06/16 Status: COMP Req#: [id number] Received: 11/06/16 Source: URINE CC Sp Desc : PP Subm Dr: Rashad Solis MD Ordered: URINE CULT Procedure Result Verified Site Microbiology ZUHAIR CULT URINE Final 11/08/16 Organism 1 MIXED UROGENITAL SAMEER U COLONY COUNT/QUANTITY 50,000-100,000 CFU/ml Blood cultures are negative. Discharge Medications Discharge Medications Adalimumab (Humira Crohn's) 40 Mg/0.8 Ml Pen.ij.kit 40 MG SQ ONCE Prescribed by: LASHA PRATHER DO Ascorbate Calcium (Vitamin C) 500 Mg Tablet 500 MG PO DAILY (Reported) Dicyclomine (Bentyl) 10 Mg Capsule 10 MG PO QID Prescribed by: LASHA PRATHER DO Fondaparinux Sodium (Fondaparinux Sodium) 5 Mg/0.4 Ml Syringe 5 MG SQ DAILY Prescribed by: HU JAUREGUI DO Furosemide (Lasix) 20 Mg Tablet 20 MG PO DAILY Prescribed by: WING FERRARA DO Furosemide (Furosemide) 20 Mg Tab 20 MG PO DAILY Prescribed by: ELISSA SHETTY DO Prednisone (PredniSONE) 10 Mg Tablet 15 MG PO DAILYWM Prescribed by: ELISSA R SHETTY, DO As needed Lorazepam (Lorazepam) 1 Mg Tablet 1 MG PO TID PRN PRN For Anxiety Prescribed by: ELISSA SHETTY, DO Oxycodone (Roxicodone) 15 Mg Tablet 15 MG PO Q6H PRN PRN For Pain Prescribed by: WING FERRARA, DO Oxycodone (Roxicodone) 15 Mg Tablet 15 MG PO Q6H PRN PRN For Pain Prescribed by: ELISSA SHETTY, DO Oxycodone (Roxicodone) 5 Mg Tablet 5 MG PO Q4H PRN PRN For Pain Prescribed by: ELISSA SHETTY, DO Promethazine (Promethazine) 12.5 Mg Tablet 6.25 MG PO PRN For Nausea (Reported) Additional med instructions PRESCRIPTIONS PROVIDED/hard copies ATIVAN (lorazepam) - 1mg tabs orally q4-6h as needed anxiety - Please take one-half tab (0.5mg) as needed - Attempt to use as sparingly as possible ROXICODONE (oxycodone) - 15mg tabs provided - Try to schedule 15mg 2-3 times daily - Attempt to taper down over course of next week LASIX (furosemide) 20mg tabs - Take one tab daily - This is a diuretic, 'water pill' that reduces swelling and edema - You may not need this daily if you increase your mobility and do not notice your feet are swollen PREDNISONE 10mg tabs - Take 15mg daily (One and one-half tabs) - Discuss with dr. Valdez your taper schedule ENTERAL TUBE FEEDS - Continue these for minimum THREE months - These will be managed by [facility] - Please contact them with any questions or concerns ADDITIONAL INFO: - Continue your Humira as scheduled - Continue your prednisone at 15mg daily at this time until you follow up with Dr. Valdez - Continue tube feeds as tolerated Followup Plan Disposition: Home with HHPT and [facility] for tube feeds Follow-up plan - Work with Home Health and physical therapy - [facility] at the [facility] when they have an available appointment. You are welcome to see any resident with an opening. We all work together! - Please let the [facility] know if you run out of your medications before you are able to be seen for an appointment. We understand that you have been trying to get over to see us, but have needed to be hospitalized. - Follow up with Dr. Valdez within one week. - If you feel ill again- having sever cramping, decreased stool amount in your ileostomy bag, notice any blood in your bag, or develop fever, chills, nausea, or vomiting, please return to the emergency department for prompt evaluation Discharge Diet: No restrictions, Other (Protein-rich) Discharge Activity: Home Health Phyical Therapy Patient Instructions - Please try to keep pain medications at a minimum - Chew your food well! Avoid meats and bulky raw vegetables. If you choose to eat these, please chew them well, or you can make smoothies and place fruits and veggies in a second class welder. - You may need a complete revision of your stoma in the future. Please follow up with GI to discuss further. - You will need adequate nutrition prior to any major intervention such as that. - Please continue tube feedings, and increase your oral intake with protein rich foods - As you continue to receive nutrition, you should become stronger, and will better be able to tolerate a procedure - Keep working with physical therapy! It will take a while, but you'll continue to get stronger as you keep working! You are doing great! - We understand the tube in your nose is uncomfortable, but it is necessary to get the nutrition to you that you need to regain your strength Follow-up Provider: [facility] Follow-up with PCP in: 1 week (To establish care) Provider: Kirby Valdez MD Follow-up in: 1 week (Must have appt within one week) Attending Statement Patient seen and examined with Dr. Gabbi Shetty. Chart was reviewed and case was discussed at length with Dr. Gabbi Shetty. I agree with the above discharge summary note. Elissa Shetty DO Nov 21, 2016 19:37 Satish Hernández MD Nov 21, 2016 20:45
== END 2016-11-21 17:05 | disposition home health service (06) | DRG 385 ==
LOC: SED 10:05 → EDBD 10:05 → EDUNIT# 10:05 → PCC 13:32
PROVIDERS: ADMIT Hospitalist; ATTEND Hospitalist
PROC: 0D7B8ZZ Dilation of Ileum, Via Natural or Artificial Opening Endoscopic (ICD-10-PCS; principal; 2016-11-11 10:30)
PROC: 30233N1 Transfusion of Nonautologous Red Blood Cells into Peripheral Vein, Percutaneous Approach (ICD-10-PCS; 2016-11-15)
PROC: 0D7B8ZZ Dilation of Ileum, Via Natural or Artificial Opening Endoscopic (ICD-10-PCS; 2016-11-19)
DX: K50.012 Crohn's disease of small intestine with intestinal obstruction (principal); R57.1 Hypovolemic shock; E43 Unspecified severe protein-calorie malnutrition; Z68.1 Body mass index [BMI] 19.9 or less, adult; I82.622 Acute embolism and thrombosis of deep veins of left upper extremity; T82.868A Thrombosis due to vascular prosthetic devices, implants and grafts, initial encounter; E87.1 Hypo-osmolality and hyponatremia; E27.3 Drug-induced adrenocortical insufficiency; K50.013 Crohn's disease of small intestine with fistula; E83.51 Hypocalcemia; Z79.52 Long term (current) use of systemic steroids; G89.29 Other chronic pain; D50.9 Iron deficiency anemia, unspecified; F41.9 Anxiety disorder, unspecified; T38.0X5A Adverse effect of glucocorticoids and synthetic analogues, initial encounter

== ENCOUNTER 2016-11-19 06:11 | Day surgery (SDC) | payer MEDICARE ==
[~2016-11-19 06:11] MED LIST changes: +ASCO-294 PO; +Lactated Ringer's 1,000 ML IV ONE; -PRE10 PO; +PRE20 PO
--- NOTE | 2016-11-19 11:15 | PCM.HPANE ---
Patient Data Surgeon Admitting Provider: Attending Provider:Kirby Valdez MD Primary Care Physician:Karissa Vicente DO Other Provider:Kathleen Gordillo Anesthesia Reason for Visit Crohn's Disease Without Complications Ht/WT & BMI Body Mass Index Allergies Coded Allergies: Iodinated Contrast Media - Oral and (Verified Allergy, Severe, Shortness of Breath,full body rash/redness, 11/06/16) Past Anesthesia History Anesthesia History: Denies:: Abnormal Airway, Anesthesia Reactions, Difficult Intubation, Fam Anesthesia Reaction, Fam Malignant Hypertherm, Malignant Hyperthermia Diabetes History Hx Diabetes?: No MRSA MRSA: No Medications Active Scripts Oxycodone (Roxicodone)15 Mg [id number] Mg PO Q6H PRN For Pain #60 TABLET Ref 0 Prov:Purnima Recio DO 10/28/16 Furosemide (Lasix)20 Mg [id number] Mg PO DAILY #15 TABLET Ref 0 Prov:Purnima Recio DO 10/28/16 Fondaparinux Sodium 5 Mg/0.4 Ml Syringe5 Mg SQ DAILY anticoagulation #30 SYR Prov:HU JAUREGUI DO 10/28/16 Adalimumab (Humira Crohn's)40 Mg/0.8 Ml [email or web address] Mg SQ ONCE #2 DOSE Prov:Karissa Vicente DO 10/04/16 Dicyclomine (Bentyl)10 Mg [id number] Mg PO QID #120 CAPSULE Prov:Karissa Vicente DO 10/04/16 Reported Medications Ascorbate Calcium (Vitamin C)500 Mg [id number] Mg PO DAILY 11/06/16 Diazepam (Valium)2 Mg Tablet1 Mg PO TID PRN For Anxiety 30 Days Ref 0 11/06/16 Prednisone (PredniSONE)20 Mg [id number] Mg PO DAILY Ref 0 11/06/16 Promethazine 12.5 Mg Tablet6.25 Mg PO PRN For Nausea 10/21/16 History History of ENT Problems?: No HEENT History: Denies:: Abnormal Airway Difficult Intubation Dysphagia Hearing Problem Sinus Problem Hx of Heart Problems?: Yes Cardiovascular History: Positive for:: Heart Murmur Denies:: Cardiac Surgery Chest Pain Congestive Heart Failure Edema Hypertension Irregular Heartbeat Pacemaker Thrombophlebitis Hx of Respiratory Problem?: Yes Respiratory History: Denies:: Asthma COPD Chest Surgery Emphysema Hemoptysis Pneumonia Tuberculosis Hx Neurologic Problems?: No Neurological History: Denies:: CVA Hx of GI Problems?: Yes Gastrointestinal History: Positive for:: Heartburn Denies:: Diverticulitis Gastroesphageal Reflux Gastrointestinal Bleeding Hepatitis Hiatal Hernia Rectal Bleeding Hx of Problems?: No Female Hx: Denies:: Currently Endometriosis Pelvic Inflammatory Problems with Breasts? Hx Musculoskeletal Problems?: Yes Musculoskeletal History: Denies:: Back Injury Joint Replacement Musculoskeletal Trauma Hx of Psycho/Social Problems?: Yes Psycho Social History: Positive for:: Anxiety Denies:: Bipolar Disorder Hx Depression Suicide Attempt Hx Surgeries?: Yes (total proctolectomy with end illeostomy ) Hx Any Other Health Problems?: No Other History: Positive for:: Hospitalization (Crohns/dehydration) Denies:: Cancer Thyroid Disease History Blood Transfusions: Positive for:: Blood Transfusions Denies:: Blood Transfuse Reaction Hx Diabetes: No Hx Alcohol Use: NoHx Substance Use: No Smoking Status: Never Smoker Have You Smoked inLast 12 mo: No Stop/Bang Risk Assessment Category Category 1A: Patient has history of documented sleep apnea, and HAS NOT received any narcotic, sedative or anesthesia administration during this stay. Category 1B: Patient has history of documented sleep apnea, and HAS received any narcotic , sedative or anesthesia administration during this stay Category 2: Patient has SUSPECTED Obstructive Sleep Apnea, and HAS received any narcotic , sedative or anesthesia administration during this stay. Category 3: Patient has SUSPECTED Obstructive Sleep Apnea and HAS NOT received narcotic, sedative or anesthesia administration during this stay. Category 4: Outpatient in Procedural Areas with known sleep apnea or who screen positive for High Risk via the STOP/BANG questionnaire. Plan Impression Patient chart reviewed, patient interviewed and anesthestic plan with risks, benefits, and alternatives discussed, and informed consent obtained. Vahid Hilario MD Nov 19, 2016 11:15
== END 2016-11-19 23:59 | disposition home or self-care (01) ==
LOC: END 06:11
PROVIDERS: ATTEND Internal Medicine Gastroenterology
DX: K50.90 Crohn's disease, unspecified, without complications (principal); Z53.09 Procedure and treatment not carried out because of other contraindication

== ENCOUNTER 2016-12-05 15:02 | Inpatient (IN) | payer MEDICARE ==
[~2016-12-05] VITALS: Ht 165.1 cm; Wt 42.4 kg
[~2016-12-05 15:02] MED LIST changes: -DIAZ2TAB PO; +FUR20 PO; +LORA1TAB PO; -Lactated Ringer's 1,000 ML IV ONE; +OXYC-474 PO; +PRE10 PO; -PRE20 PO
[2016-12-05 15:05] VITALS: BP 95/66; PULSE 64; RESP 18; O2SAT 99
[2016-12-05 16:17] LABS: Mean Corpuscular Hemoglobin 24.3 pg (27.0-35.0); Mean Corpuscular Volume 73.6 fL (81-100); Platelet Count 298 bil/L (150-400)
[2016-12-05] MEDS ORDERED: 0.9% Sodium Chloride 1,000 ML IV ONE ×3 (16:30→19:45)
--- NOTE | 2016-12-05 16:34 | ED.REPORT ---
HPI-NVD Date of Service Dec 05, 2016 ED Provider: Vahid García MD History of Present Illness: And in by Dr. Jon. He did recommended to the patient direct admission she declined for further discussion she agreed to come to the ED for IV fluids, laboratory evaluation, and reevaluation. Patient was reportedly hypotensive with blood pressure of 80, heart rate 130 in clinic Patient is a 31 year old female with a hx of Crohn's colitis and has been prednisone dependent and had progressive deterioration who presents to the ED due to ongoing nausea onset 2 days ago. She describes abdominal pain as cramping , sharp, shooting, and burning. She was discharged from the hospital 11/21/16 after a total proctocolectomy with end ileostomy on 11/11/16. She thought she was recovering well but now reports that everything she eats goes "right through her." She cannot hold down any food and has lost about 5 lbs since she got out of the hospital. She is taking 10 mg prednisone, 15 mg oxycodone once every 6 hrs, and has not had any today. She denies vomiting, chest pain, SOB, and fever. There have been no changes to her medication since she got out of the hospital. Fondaparino once a day in the evening. She is unsure whether she would like to be admitted to the hospital. Nursing Notes Stated Complaint: DEHYDRATED, CROHNS Chief Complaint: Female Abdominal Pain Nursing Notes Reviewed: Yes ([employer] not reconciled) Allergies: Coded Allergies: Iodinated Contrast Media - Oral and (Verified Allergy, Severe, Shortness of Breath,full body rash/redness, 12/05/16) Scheduled Adalimumab (Humira) 40 Mg/0.8 Ml Pen.ij.kit 40 MG SQ [id number] Ascorbate Calcium (Vitamin C) 500 Mg Tablet 500 MG PO DAILY Dicyclomine (Bentyl) 10 Mg Capsule 10 MG PO QID Fondaparinux Sodium (Arixtra) 5 Mg/0.4 Ml Syringe 5 MG SUBQ HS Multivit with Calcium,Iron,Min (Therapeutic M) 1 Each Tablet 1 EACH PO DAILY Oxycodone (Roxicodone) 5 Mg Tablet 15 MG PO QID Prednisone (PredniSONE) 10 Mg Tablet 10 MG PO DAILY Scheduled PRN Lorazepam (Lorazepam) 1 Mg Tablet 0.5 MG PO TID PRN PRN For Anxiety Promethazine (Promethazine) 12.5 Mg Tablet 6.25 MG PO PRN For Nausea General Time Seen by MD: 16:26 Chief Complaint Nausea Hx Obtained From: Patient Arrived By: Walk-in Onset Occurred: 2 days ago Symptom Duration: Since onset Location: : Diffuse Quality: Burning, Cramping, Sharp Radiation: : Does not radiate Severity: Current: Moderate Recent Healthcare: Recent doctor visit, Previous surgery Similar Sx Previous: Yes Past Medical History Past Medical History Notes: GI Dr. Valdez Multiple recent hospitalizations, most recent November 062016 with recurrent stomal stenosis, acute exacerbation of Crohn's, suspected adrenal insufficiency and hypovolemic shock Past Medical History Severe Crohn's Disease - history of Humira and long-term glucocorticoid use Recent past and ostomy and has had recurrent problems with stomal stenosis History of recent admission with a component of suspected adrenal insufficiency secondary to long-term steroid use Severe malnutrition (patient was discharged from a hospital in November with a Dobbhoff feeding tube, but pulled it out during a severe "anxiety attack" and has thus far declined replacement) left upper extremity DVT diagnosed October 2016 secondary to PICC line - on daily fondaparinux therapy for 6 months following diagnosis in October 2016 Anxiety Heart murmur PE Past Surgical History Total proctocolectomy with end ileostomy Stomal stenosis stricture requiring multiple dilations Family History Noncontributory Smoking History Never Smoker Social History Lives in [place], she is here visiting her mother Alcohol Use: Denies alcohol use Drug Use: Denies drug use Other Social History: Good social support, , Lives with children, Visiting locally Ambulatory Status Independent Review of Systems Constitutional: Denies: Fever GI: Reports: Abdominal pain, Nausea, Denies: Vomiting Complete sys rev & neg: except as marked. Respiratory: Denies: Shortness of breath Cardiovascular: Denies: Chest pain Physical Exam Initial Vital Signs Vital Signs (First) Date Time Temp Pulse Resp B/P Pulse Ox O2 Delivery O2 Flow Rate FiO2 12/05/16 15:05 36.2 64 18 95/66 99 Room Air Initial VS: Reviewed, Vital signs abnormal (HR 130, BP 80's for Dr. Valdez) Head / Eyes: Atraumatic, Normocephalic, PERRL ENT: Mucous membranes moist, Conjunctiva normal, No scleral icterus Neck: Supple, Non-tender, Full range of motion Respiratory: Breath sounds normal, Clear to auscultation, No respiratory distress Back: No CVA tenderness Extremities: Vascular intact, Neuro intact, No swelling, No tenderness Skin: Warm, Dry, No cyanosis Neurologic: Alert, Oriented, Nonfocal Psychiatric: Mood/affect normal, Behavior normal, Normal thought content General/Constitutional: Awake, Alert, Cooperative Appearance / Presentation: Positive: Cachectic severely malnourished severely dehydrated mild palor cushioned features of the face Abdomen: Soft, Non-tender, No guarding, No rebound, BS normoactive increased ileostomy output Cardiovascular: Regular rhythm, Heart sounds NL, No gallop, No murmurs, No rubs Heart Rate / Rhythm: Positive: Tachycardia Interpretation & Diagnostics Lab Results Interpretation Result Diagram: 12/05/16 1600 12/05/16 1600 Test 12/05/16 16:00 12/05/16 17:26 White Blood Count 16.1th/mm3 (3.8-10.1) Red Blood Count 4.97mil/mm3 (3.90-5.20) Hemoglobin 12.1g/dL (12.0-15.6) Hematocrit 36.6% (35.0-46.0) Mean Corpuscular Volume 73.6fL (81-100) Mean Corpuscular Hemoglobin 24.3pg (27.0-35.0) Mean Corpuscular Hemoglobin Concent 33.1% (32.0-37.0) Red Cell Distribution Width 17.4% (12.3-15.4) Platelet Count 298bil/L (150-400) Neutrophils (%) (Auto) 77% (40-74) Lymphocytes (%) (Auto) 9% (14-46) Monocytes (%) (Auto) 1% (4-12) Eosinophils (%) (Auto) 0% (0-5) Basophils (%) (Auto) 0% (0-3) Band Neutrophils % 13% (1-5) Sodium Level 119mEq/L (134-144) Potassium Level 4.3mEq/L (3.5-5.2) Chloride Level 81mEq/L (97-108) Carbon Dioxide Level 22mmol/L (18-29) Blood Urea Nitrogen 27mg/dL (6-20) Creatinine 0.95mg/dL (0.57-1.00) Estimat Glomerular Filtration Rate 98mL/min (>59) Glucose Level 132mg/dL (60-99) Calcium Level 7.2mg/dL (8.5-10.1) Magnesium Level 2.0mg/dL (1.6-2.6) Total Bilirubin 0.2mg/dL (0.0-1.2) Aspartate Amino Transf (AST/SGOT) 16U/L (0-50) Alanine Aminotransferase (ALT/SGPT) 26U/L (0-32) Alkaline Phosphatase 149U/L (25-150) C-Reactive Protein 4.4mg/dL (0.0-0.5) Total Protein 4.9g/dL (6.4-8.4) Albumin 1.7g/dL (3.4-5.0) Lipase 4U/L (13-60) Procalcitonin 0.35ng/mL (0.00-0.08) Hold Chavis Top Tube Received (Received) Erythrocyte Sedimentation Rate 1mm/hr (0-32) Lab Results Interpretation: CBC positive leukocytosis, positive bandemia CMP severe hyponatremia Volume and still very low consistent with significant malnutrition Lactic acid elevated Blood cultures 2 pending ESR normal, CRP elevated Repeat lactic acid is normal UA pending Re-Eval/Medical Decision Med Decision/Clinical Course This is a 31-year-old female with severe Crohn's disease and multiple recent hospitalizations is sent over from the GI office. The hospital fellow as all the patient and recommended to recommend admission, but the patient declined it was not convinced he was going to stay in the hospital. She has an ileostomy following a complete total colectomy due to her disease, this required several procedures for stenosis. His recent hospitalization for sepsis , and a severe cachexia and malnutrition. When she left the hospital several weeks ago she had a Dobbhoff tube, which she pulled as the tube became clogged, the tube feeds Beeping and she did not know what to do. She has been trying to stay hydrated by mouth fluids drinking mostly water with some Gatorade. Ports about 5 pounds weight loss in the past week, increasing fatigue-but denies fevers. Increase in ileostomy output. She has some chronic abdominal cramping, and her little bit increase-but does not report localized pain. He was found tachycardic, hypotensive at the office and appeared non-nourished and dehydrated. He is still tachycardic, not as hypotensive, and is afebrile-but is indeed cachectic, dehydrated, and clinically malnourished. However abdominal exam is without localized tenderness or clinical findings of peritonitis. Labs are notable for severe leukocytosis and bandemia. Hyponatremia, lactic acidosis and dehydration with elevated CRP are also evident. She received aggressive fluids, and her lactate cleared. Her vitals improved. The patient again was initially declining hospitalization when I saw her, but after I reviewed her laboratories with her she is agreed to admission. She some titrated pain and nausea medicine as well. I discussed the situation with the hospital fellow, suspect this is secondary to her Crohn's-she does not have hard findings of infection, and at this point appear antibiotics are not indicated, but the patient be closely followed and a urine is being obtained to look for alternative sources. The plan is stress dose steroids and the patient received hydrocortisone here, admission with placement of a Dobbhoff tube in the hosptial and resumption of tube feeds to facilitate nutritional status and helped electrolytes. Endoscopy later this weeked is being considered for this stenosis of her ostomy site and GI will follow. Case is discussed with the hospitalist Source of Hx: Old records Re-Evaluation/Progress : Time of Eval: 17:45 Patient Status: Condition unchanged Re-Evaluation/Progress Note: Pt rechecked. Informed pt of lab results and need for admission. Pt understands and agrees with plan. Consultation #1: Referral / Consult Name: Seth Hinojosa MD Consulted With: Hospitalist Call Returned at: 18:03 [employer]: Agrees with eval, Agrees with plan Note: Case discussed. Dr. Hinojosa agrees with plan. Consultation #2: Referral / Consult Name: Kirby Valdez MD Call Returned at: 18:10 [employer]: Agrees with eval, Agrees with plan Note: Case discussed. Dr. Bedoya recommends starting steroids, aggressive IV fluids, placing doghoff tube and starting tube feeds. Does not recommend antibiotics. Consultation #3: Referral / Consult Name: Seth Hinojosa MD Consulted With: Hospitalist Call Returned at: 18:35 [employer]: Agrees with eval, Agrees with plan Note: Case discussed. Consultation #4: Note: Case discussed with GI with results of labs. Plan at this time is to hold off on empiric antibiotics while awaiting cultures, stress dose steroids, admitted for continued hydration and supportive care, with recommendations that new Dobbhoff tube be placed and tube feeds resumed. Endoscopy for the ostomy stenosis is being considered for later this weekend. GI will follow. All of these recommendations and plans were also communicated to the hospitalist Counseled Regarding: Diagnosis, Lab results Discharge & Departure Impression: Primary Impression: Crohn's disease Gastrointestinal tract location: unspecified location Digestive disease complication type: unspecified complication Qualified Code: K50.919 - Crohn' s disease, unspecified, with unspecified complications Additional Impressions: Dehydration Hyponatremia Tachycardia Malnutrition Disposition: ADMITTED TO HOSPITAL Discharge Condition All VS Reviewed: Yes Condition: Stable Referrals: Elissa Arteaga DO (PCP) Crit Care Except Billable Proc Time Spent: 30-74 minutes Services Performed: Patient management by me, Time spent at bedside, Reviewing test results, Discussing patient care, Documentation in record, Time with fam/ surrogate Scribe Attestation Portion of this note were transcribed by Nena Dumont. I, Dr. García, personally performed the history, physical exam, and medical decision-making: I reviewed and confirmed the accuracy for the information in the transcribed note. Signed by: justin Morse, 12/05/16 1800 copies to: Elissa Arteaga Matthew F MD Dec 05, 2016 16:34 Nena Dumont Dec 05, 2016 16:37
[2016-12-05 16:57] LABS: BASOPHILS % (AUTO) 0 % (0-3); EOSINOPHILS % (AUTO) 0 % (0-5); MONOCYTES % (AUTO) 1 % (4-12); NEUTROPHILS % (AUTO) 77 % (40-74)
[2016-12-05] MEDS ORDERED: MULT-140 PO (17:43)
[2016-12-05] MEDS ORDERED: [UNRECOGNIZED DRUG - CODE] SUBQ (17:44)
[2016-12-05] MEDS ORDERED: PRE10 PO (17:46)
[2016-12-05] MEDS ORDERED: OXYC-474 PO (17:48)
[2016-12-05] MEDS ORDERED: LORA1TAB PO (17:49)
[2016-12-05] MEDS ORDERED: Ondansetron 2 mg/mL 2 mL Inj IVPUSH ONE (17:50)
[2016-12-05] MEDS: HYDROmorphone 1 mg/mL Inj IVPUSH PRN ×2 (17:54→18:34)
[2016-12-05] MEDS ORDERED: 0.9% Sodium Chloride 1,000 ML IV SCH (18:08)
[2016-12-05] MEDS ORDERED: Polyethylene Glycol (PEG) 17 Gm Powder PO PRN (18:10)
[2016-12-05] MEDS ORDERED: ADAL40PE SQ (18:15)
[2016-12-05] MEDS ORDERED: Hydrocortisone 50 mg/mL 2 mL Inj IVPUSH ONE (18:15)
[2016-12-05] MEDS: Ondansetron 2 mg/mL 2 mL Inj IVPUSH PRN (18:34)
[2016-12-05] MEDS ORDERED: HYDROmorphone 1 mg/mL Inj IVPUSH PRN (19:10)
[2016-12-05 19:38] VITALS: BP 92/58; PULSE 111; RESP 18; O2SAT 100
[2016-12-05 20:54] VITALS: BP 117/78; PULSE 112; RESP 19; O2SAT 100
[2016-12-05] MEDS: Alum-Mag Hydrox-Simeth 30 mL Suspension PO PRN (21:01)
--- NOTE | 2016-12-05 21:36 | PCM.HPMED ---
Subjective Date of Service Dec 05, 2016 Primary Provider: Admitting Physician: Primary Care Physician: Elissa Shetty DO Attending Physician: Admit Status: From the Emergency Department, Full Admit, [facility] Telemetry Chief Complaint: Nausea and hypotension History of Present Illness: Ms. Terra Beauchamp is a 31 year old woman that recently moved to the [facility] from the [facility] with a complex history of Crohn's disease s/p ileostomy after colectomy performed at [facility] in [place], [place]. She is on chronic glucocorticoids with recent initiation of Humira therapy, multiple prior obstructions/near obstructions near ostomy, recurrent flares, and recent left UE DVT secondary to PICC placement for TPN, who presented to the Emergency department with acute on chronic diffuse abdominal pain and nausea Patient was seen by Dr. Jon at the GI clinic and recommended to the patient direct admission but she declined for further discussion she agreed to come to the ED for IV fluids, laboratory evaluation, and reevaluation. Patient was reportedly hypotensive with blood pressure of 80, heart rate 130 in clinic Patient reported ongoing nausea onset 2 days ago. She describes abdominal pain as cramping, sharp, shooting, and burning. Associated symptoms includes poor appetite (everything she eats goes "right through her."), weight loss of 5 lbs since she left the hospital. Denies any dyspnea, chest pain or fever. She was discharged from the hospital 11/21/16 after a total proctocolectomy with end ileostomy on 11/11/16. Case discussed with Dr García, he spoke to Dr Decker, recommended fluids as well as steroids. No antibiotics at this time. Review of Systems: Pertinent positives as noted in HPI. All other systems were reviewed and are negative Allergies Coded Allergies: Iodinated Contrast Media - Oral and (Verified Allergy, Severe, Shortness of Breath,full body rash/redness, 12/05/16) Home Medications From recent Discharge Summary. Adalimumab (Humira Crohn's) 40 Mg/0.8 Ml Pen.ij.kit 40 MG SQ ONCE Prescribed by: LASHA PRATHER DO Ascorbate Calcium (Vitamin C) 500 Mg Tablet 500 MG PO DAILY (Reported) Dicyclomine (Bentyl) 10 Mg Capsule 10 MG PO QID Prescribed by: LASHA PRATHER DO Fondaparinux Sodium (Fondaparinux Sodium) 5 Mg/0.4 Ml Syringe 5 MG SQ DAILY Prescribed by: HU JAUREGUI DO Furosemide (Lasix) 20 Mg Tablet 20 MG PO DAILY Prescribed by: WING FERRARA DO Furosemide (Furosemide) 20 Mg Tab 20 MG PO DAILY Prescribed by: ELISSA SHETTY DO Prednisone (PredniSONE) 10 Mg Tablet 15 MG PO DAILYWM Prescribed by: ELISSA SHETTY DO As needed Lorazepam (Lorazepam) 1 Mg Tablet 1 MG PO TID PRN PRN For Anxiety Prescribed by: ELISSA SHETTY DO Oxycodone (Roxicodone) 15 Mg Tablet 15 MG PO Q6H PRN PRN For Pain Prescribed by: WING FERRARA DO Oxycodone (Roxicodone) 15 Mg Tablet 15 MG PO Q6H PRN PRN For Pain Prescribed by: ELISSA SHETTY DO Oxycodone (Roxicodone) 5 Mg Tablet 5 MG PO Q4H PRN PRN For Pain Prescribed by: ELISSA SHETTY DO Promethazine (Promethazine) 12.5 Mg Tablet 6.25 MG PO PRN For Nausea (Reported) ENTERAL TUBE FEEDS - Continue these for minimum THREE months PMH 1. Crohn's colitis with bowel obstructions. Perirectal fistula after remicade w / bacteremia resolved w/ bowel rest x 1 month/TPN 2. Chronic steroid dependence. 3. Left arm PICC associated DVT. 4. Remote PE 5. severe protein calorie malnutrition 6. Anxiety 7. Iron deficiency anemia 8. 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 Surgical History Abdominal proctocolectomy with right upper quadrant ileostomy at [facility] October 2013 Tympanostomy, T and A, C. section Low grade TETO status post colposcopy Family History Negative for inflammatory bowel disease Social History Hx Alcohol Use: No Hx Substance Use: No Hx Tobacco Use: No Smoking Status: Never Smoker Living Arrangement: with Family Exam Vital Signs Vital Sign - Last Date Time Temp Pulse Resp B/P Pulse Ox O2 Delivery O2 Flow Rate FiO2 12/05/16 15:05 36.2 64 18 95/66 99 Room Air Exam General: Frail, extremely thin woman, no acute distress; resting supine in bed Eyes: PERRLA, Scleral Anicteric cushinoid-facies Mouth: Mouth Normal, Mucous Membranes Moist/Bulger Neck: Supple, no Thyromegaly, trachea central. Chest & Lungs: Clear to auscultation & percussion, No adventitious breath sounds, no crackles, no wheeze Cardiovascular: Normal S1, Normal S2, No Murmurs/Rubs/Gallops, Regular Rate/ Rhythm, (No JVD, no peripheral edema) Pulses: Radial (present and equal), Dorsalis Pedi (present and equal) Abdomen: Soft, Non-tender, Non-distended, Normoactive bowel tones. : Ileostomy in place Musculoskeletal: Unremarkable. Normal range of motion, no swollen or erythematous joints Extremities: BL feet edematous, no cyanosis, no clubbing. Skin: No rashes. Warm and dry, no erythematous areas Neurological: Grossly neurologically intact, has generalized weakness, Normal Speech, Sensation Intact Lymphatic: Lymph nodes Cervical and Axillary not palpable. Lab and Diagnostics Labs Laboratory Tests Test 12/05/16 16:00 12/05/16 17:26 White Blood Count 16.1th/mm3 (3.8-10.1) Red Blood Count 4.97mil/mm3 (3.90-5.20) Hemoglobin 12.1g/dL (12.0-15.6) Hematocrit 36.6% (35.0-46.0) Mean Corpuscular Volume 73.6fL (81-100) Mean Corpuscular Hemoglobin 24.3pg (27.0-35.0) Mean Corpuscular Hemoglobin Concent 33.1% (32.0-37.0) Red Cell Distribution Width 17.4% (12.3-15.4) Platelet Count 298bil/L (150-400) Neutrophils (%) (Auto) 77% (40-74) Lymphocytes (%) (Auto) 9% (14-46) Monocytes (%) (Auto) 1% (4-12) Eosinophils (%) (Auto) 0% (0-5) Basophils (%) (Auto) 0% (0-3) Band Neutrophils % 13% (1-5) Sodium Level 119mEq/L (134-144) Potassium Level 4.3mEq/L (3.5-5.2) Chloride Level 81mEq/L (97-108) Carbon Dioxide Level 22mmol/L (18-29) Blood Urea Nitrogen 27mg/dL (6-20) Creatinine 0.95mg/dL (0.57-1.00) Estimat Glomerular Filtration Rate 98mL/min (>59) Glucose Level 132mg/dL (60-99) Lactic Acid Level 3.8mmol/L (0.4-2.0) Calcium Level 7.2mg/dL (8.5-10.1) Magnesium Level 2.0mg/dL (1.6-2.6) Total Bilirubin 0.2mg/dL (0.0-1.2) Aspartate Amino Transf (AST/SGOT) 16U/L (0-50) Alanine Aminotransferase (ALT/SGPT) 26U/L (0-32) Alkaline Phosphatase 149U/L (25-150) C-Reactive Protein 4.4mg/dL (0.0-0.5) Total Protein 4.9g/dL (6.4-8.4) Albumin 1.7g/dL (3.4-5.0) Lipase 4U/L (13-60) Hold Chavis Top Tube Received (Received) Erythrocyte Sedimentation Rate 1mm/hr (0-32) Result Diagram: 12/05/16 1600 12/05/16 1600 Assessment & Plan Ms. Terra Beauchamp is a 31 year old woman that recently moved to the [facility] from the [facility] with a complex history of Crohn's disease s/p ileostomy after colectomy performed at [facility] in [place], [place]. She is on chronic glucocorticoids with recent initiation of Humira therapy, multiple prior obstructions/near obstructions near ostomy, recurrent flares, and recent left UE DVT secondary to PICC placement for TPN, who presented with acute on chronic diffuse abdominal pain and nausea 1. Acute exacerbation of Crohn's disease with ostomy stenosis, present on admission. Ongoing Patient on intermediate teacher glucocorticoid with Humira but had several complications. There is a possibility the patient has stoma stenosis again. - Colonoscopy with stoma dilation completed 11/11; final report by Dr. Valdez - Restart tube feeds, encourage po intake as tolerated - clear liquid diet, advance as tolerated - possible colonoscopy and stoma dilation planned again 2. Systemic inflammatory response with possible sepsis, acute, present on admission. Meeting criteria Leukocytosis, Bandemia. possible source of infection likely Gastrointestinal - monitor vitals closely - no antibiotics as per GI at this time - holding diuretics while giving IV fluids 3. Lactic acidosis. Present on admission Due to tissue hypoxia from possible Sepsis. - trending levels till normal 4. Hyponatremia, acute on chronic, present on admission. History of hyponatremia in previous hospitalizations likely secondary to poor po intake. Possible related to Adrenal insufficiency - continue IV fluids resuscitations - stopping diuretics - monitor sodium levels 5. Suspected adrenal insufficiency secondary to mcc steroid use. - Stress dose steroids completed: Solu-Cortef 100mg q8, transition to home dose when stable - needs Endocrinology evaluation as outpatient 6. Severe protein/calorie malnutrition, chronic. BMI 12.5 History of TPN requirements due to malnutrition - Dobhoff will be placed tomorrow with radiology (day team to contact them) and resume tube feeds - nothing by mouth after midnight - will consult Outside Sales Professional inpatient 7. Left upper extremity Deep vein thrombosis Secondary to previous PICC placement; Dx October 2016 - continue Fondaparinux 5mg qhs x6 mo therapy 8. Chronic pain syndrome Long-standing issue; patient reports constant pain - Dilaudid 1mg IV q3h prn - Acetaminophen as needed for mild pain/fever/headache - Bowel regimen as needed - Antiemetic as needed Patient admitted under inpatient status with expected length of stay > 2 midnights for severity of present symptoms, complexities of treatment plan and risk for adverse event . Resuscitation Status: CPR: Attempt Resuscitation Seth Hinojosa MD Dec 05, 2016 18:17
[2016-12-05] MEDS ORDERED: LORazepam 0.5 mg Tablet PO PRN ×2 (21:40→21:55)
[2016-12-05] MEDS: Sodium Chloride LOK Flush 10 mL Syringe IVFLUSH SCH (22:51)
[2016-12-05] MEDS: 0.9% Sodium Chloride 1,000 ML IV SCH (23:01)
[2016-12-05 23:35] VITALS: BP 99/64; PULSE 104; RESP 16; O2SAT 100
[2016-12-06] VITALS (8 sets, daily range): BP systolic 98–115; BP diastolic 62–80; PULSE 89–108; RESP 16–18; O2SAT 98–100
[2016-12-06] MEDS: HYDROmorphone 1 mg/mL Inj IVPUSH PRN ×5 (00:56→20:18)
[2016-12-06] MEDS: Hydrocortisone 50 mg/mL 2 mL Inj IVPUSH SCH ×3 (01:59→21:23)
[2016-12-06] MEDS ORDERED: HYDROmorphone 0.5 mg/0.5 mL iSecure Syringe IVPUSH PRN (02:30)
[2016-12-06 03:34] LABS: BASOPHILS % (AUTO) 0.4 % (0-3); EOSINOPHILS % (AUTO) 0 % (0-5); MONOCYTES % (AUTO) 5.9 % (4-12); Mean Corpuscular Hemoglobin 24.2 pg (27.0-35.0); Mean Corpuscular Volume 75.8 fL (81-100); NEUTROPHILS % (AUTO) 75.9 % (40-74); Platelet Count 194 bil/L (150-400)
--- NOTE | 2016-12-06 05:22 | NUR ---
Admit Pt arrived to PCC room 2006 at approx. 2030 from ED via bed; report received from Inna Bailey RN. All belongings transferred with pt; mother at bedside. Admission documentation and med rec completed by admit RN. Pt reports pain at 6/10 to abdomen. Heat pack administered. VSS. 100ml/hr NS IV initiated. Pt independent in room, tolerates well. NPO after midnight, verbalizes understanding. Broth and juice given prior. Pt consistently reports pain throughout shift at 6-7/10 to abdomen with only slight relief from 1mg Q3H Dilaudid administration; paged; range increased to 1-2mg Q3H. Pt able to rest intermittently.
[2016-12-06] MEDS: 0.9% Sodium Chloride 1,000 ML IV SCH ×3 (06:10→23:37)
[2016-12-06] MEDS: Sodium Chloride LOK Flush 10 mL Syringe IVFLUSH SCH ×3 (07:24→21:23)
[2016-12-06] MEDS: Ondansetron 2 mg/mL 2 mL Inj IVPUSH PRN ×3 (10:44→18:58)
--- NOTE | 2016-12-06 11:14 | PROG NOTE ---
[address] [address] PROGRESS NOTE PATIENT: MAE FELIZ : 1985 MR#: [id number] ADMIT: 12/05/2016 JOB ID: [id number] DATE: 12/06/2016 SUBJECTIVE: I saw the patient yesterday in clinic. She was hypotensive, tachycardic, and appeared to be quite volume depleted. We sent her over to the emergency department for resuscitation and admission. I had communicated with the emergency department physician that I wanted her resuscitated and then and nutrition immediately started. It is unclear what happened on that score but the patient was rendered n.p.o. last night and the requested Dobbhoff was not placed. OBJECTIVE: Vital signs stable. The patient was ambulatory in her room when I approached. She was in no distress, conversational. Blood pressure 102/73, pulse 94, a marked improvement. LABORATORY DATA: Hemoglobin has dropped with hydration down to 8.8, MCV is low, white count has dropped down to 8.0, platelets are 194. Calcium has dropped, but her albumin is quite low still. It was 1.7 on admission. ASSESSMENT AND RECOMMENDATIONS: A 31-year-old female with severe complex complicated Crohn disease and recent PICC line induced left subclavian DVT with multifocal pulmonary emboli. She has severe right lower quadrant stomal stenosis. She has clearly had marked failure to thrive at home. I have previously declined to pursue PEG tube based on her hypoalbuminemia and elevated CRP. This clearly increases the mortality rate from PEG tube insertion. Temporarily the patient should have a nasogastric or Dobhoff tube placed immediately and tube feeds reinitiated. I put the order in for this this morning. I had no plans for procedure today but do have her tentatively on the schedule for tomorrow at around 10 a.m. The fondaparinux will need to be held this evening. It is debatable whether I would provide her any element of bowel prep. I suspect it will not be all that effective with the stomal stenosis. Will likely need to repeat a dilatation effort without prep as before. In order for her to have anesthesia, her tube feeds will need to be turned off at 4 a.m. for the 10 a.m. scheduled procedure. Please do not apply a physician charge to this particular note today. This was a no charge visit. AYANA
--- NOTE | 2016-12-06 11:23 | NUR ---
12F Kangaroo weighted feeding tube placed via right nare without difficulty after procedure explained and verbal consent obtained. Resistance felt at approximately 57cm which was uncomfortable for patient and further advancement was not pursued. Placement verified by auscultation, x-ray confirmation pending.
--- NOTE | 2016-12-06 11:37 | NUR ---
NUTRITION ASSESSMENT: ASSESS:31-year-old female admitted with severe complex, complicated Crohn's disease and recent PICC line induced left subclavian DVT with multifocal pulmonary emboli. She has severe right lower quadrant stomal stenosis. She has clearly had marked failure to thrive at home. Gastroenterology previously declined to pursue PEG tube based on her hypoalbuminemia and elevated CRP. This clearly increases the mortality rate from PEG tube insertion. Temporary nasogastric or Dobhoff tube placement ordered this morning, with initiation of enteral feeding equested. Diet advanced to high calorie soft, high calorie. She is scheduled for endoscopy procedure tomorrow morning, likely including repeat dilatation without bowel prep. Patient reports that her feeding tube clogged repeatedly at home, and she discontinued enteral feeding. 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 DIET:Mechanical soft, high calorie. PO intake not yet recorded. LABS: Reviewed. Na 126, Chloride 95, Ca 6.0. MEDICATIONS: Reviewed. Solu-cortef. NUTRITION FOCUSED PHYSICAL ASSESSMENT: GI symptoms / stool: No stool.Wilfrido: 17 Skin Integrity: No issues at this time. ANTHROPOMETRICS: Current Wt: 36.6 kgBMI: 13.0 kg/m2. Weight loss: 14.6 kg weight loss x 17 days = 28.52% = SEVERE MALNUTRITION. IBW: 56.8 kg (64.4% IBW) ESTIMATED NEEDS (SEVERE MALNUTRITION): Calories: 1098 - 1281 kcal (30 - 35 kcal / kg BW) Protein: 44 - 55 g protein (1.2 - 1.5 g / kg BW) Fluid: Approx. 1281 mL (35 mL / kg BW) NUTRITION DIAGNOSIS: 1)Severe malnutrition related to complex Crohn's disease with multiple GI surgeries / complications, as evidenced by 28.52% weight loss x 17 days, self discontinuation of nutrition support in the home setting. INTERVENTION: 1) Gastroenterology ordering Dobhoff tube placement today, with immediate advance of diet and initiation of enteral feeding: Jevity 1.5 @ 30 ml/hr. 2) Patient at high risk for refeeding syndrome and inability to absorb enteral feeding. Recommend enteral feeding not be advanced for several days until mg, phos and potassium labs indicate refeeding risk resolved. Patient may require TPN to supplement enteral feeding and oral intake. 3)Recommend enteral feeding formula be changed to Vital 1.5 with peptide-based protein and MCT oil. Recommend Vital 1.5 be initiated at 15 ml/hr x 12 hr, advancing once refeeding risk resolved 5 ml every 4 hr. to goal rate 35 ml/hr. Enteral feeding at goal rate would provide 1208 kcal, 55 g protein, sufficient to meet 100% nutrient needs. 4)In the event patient remains on Jevity 1.5, goal rate is also 35 ml/hr, which will provide 1208 kcal, 51 g protein. 5)Will add Ensure and Gelatein to trays, Magic Cups between meals to enhance kcal / protein intake. MONITOR/EVALUATE: Diet advance / tolerance, enteral feeding tolerance / advance, PO intake, labs, GI/nutrition status. Follow up per high nutrition risk guidelines. Addendum: 12/06/16 at [address] Despite insurance issues over the use of Vital 1.5, which was not covered status post last discharge, I received authorization by Dr. Valdez to initiate this formula while admitted and request that [employer] initiate an appeal to utilize this formula, which is significantly better tolerated than Jevity 1.5.
--- NOTE | 2016-12-06 11:50 | DRSVH ---
PROCEDURE: X-RAY CHEST ONE VIEW, PORTABLE ([id number]) INDICATIONS: TUBE PLACEMENT TECHNIQUE: One view of the chest was acquired. COMPARISON: Merged With [facility], CR, XR CHEST 1VW (PORTABLE), 11/09/2016, 13:41. [facility], [facility] CHEST 1[facility]W (PORTABLE), 11/07/2016, 9:47. Merged With [facility], CR, XR CHEST 1VW (PORT ABLE), 11/06/2016, 12:05. FINDINGS: Surgical changes and devices: Feeding tube is present, tip of which is in the gastric lumen. Lungs and pleura: No pleural effusions or pneumothorax. Lungs are clear. Mediastinum: Mediastinal contours appear normal. Heart size is normal. Bones and chest wall: No suspicious bony lesions. Overlying soft tissues appear unremarkable. IMPRESSION: No acute process. The feeding tube is in gastric lumen. Dictated by: Calvin Bonds M.D. on 12/06/2016 at 11:43 Approved by: Calvin Bonds M.D. on 12/06/2016 at 11:43
--- NOTE | 2016-12-06 11:58 | PCM.PNMED ---
Subjective Date of Service Dec 06, 2016 Subjective Ms. Terra Beauchamp is a 31 year old woman that recently moved to the [facility] from the [facility] with a complex history of Crohn's disease s/p ileostomy after colectomy performed at [facility] in [place], [place]. She is on chronic glucocorticoids with recent initiation of Humira therapy, multiple prior obstructions/near obstructions near ostomy, recurrent flares, and recent left UE DVT secondary to PICC placement for TPN, who presented to the Emergency department with acute on chronic diffuse abdominal pain and nausea Patient was seen by Dr. Jon at the GI clinic and recommended to the patient direct admission but she declined for further discussion she agreed to come to the ED for IV fluids, laboratory evaluation, and reevaluation. Patient was reportedly hypotensive with blood pressure of 80, heart rate 130 in clinic Patient reported ongoing nausea onset 2 days ago. She describes abdominal pain as cramping, sharp, shooting, and burning. Associated symptoms includes poor appetite (everything she eats goes "right through her."), weight loss of 5 lbs since she left the hospital. Denies any dyspnea, chest pain or fever. She was discharged from the hospital 11/21/16 after a total proctocolectomy with end ileostomy on 11/11/16. Overnight Events: No acute overnight events. Today: Case discussed with Dr García, he spoke to Dr Decker, recommended fluids as well as steroids. No antibiotics at this time. Exam Vital Signs Vital Sign - Last Date Time Temp Pulse Resp B/P Pulse Ox O2 Delivery O2 Flow Rate FiO2 12/06/16 09:10 99 12/06/16 08:12 36.7 18 102/73 100 Room Air Intake and Output 12/05/16 12/05/16 12/06/16 Cumulative From/Thru 15:00 23:00 07:00 12/05/16 15:05 - 12/06/16 06:23 Intake Total 2000 ml 1673 ml 3673 ml Output Total 1200 ml 1200 ml Balance 2000 ml 473 ml 2473 ml Intake Oral 800 ml 800 ml IV Total 2000 ml 873 ml 2873 ml Output Urine Total 900 ml 900 ml Stool Total 300 ml 300 ml # Voids 2 2 Exam General: Frail, extremely thin woman, no acute distress; resting supine in bed Eyes: PERRLA, Scleral Anicteric cushinoid-facies Mouth: Mouth Normal, Mucous Membranes Moist/[place] Neck: Supple, no Thyromegaly, trachea central. Chest & Lungs: Clear to auscultation & percussion, No adventitious breath sounds, no crackles, no wheeze Cardiovascular: Normal S1, Normal S2, No Murmurs/Rubs/Gallops, Regular Rate/ Rhythm, (No JVD, no peripheral edema) Pulses: Radial (present and equal), Dorsalis Pedi (present and equal) Abdomen: Soft, Non-tender, Non-distended, Normoactive bowel tones. : Ileostomy in place Musculoskeletal: Unremarkable. Normal range of motion, no swollen or erythematous joints Extremities: BL feet edematous, no cyanosis, no clubbing. Skin: No rashes. Warm and dry, no erythematous areas Neurological: Grossly neurologically intact, has generalized weakness, Normal Speech, Sensation Intact Lymphatic: Lymph nodes Cervical and Axillary not palpable. IVs and Medications Medications Reviewed: Medications were reviewed in detail Lab and Diagnostics Result Diagram: 12/06/1630912/06/16309 Assessment & Plan Ms. Terra Beauchamp is a 31 year old woman that recently moved to the [facility] from the [facility] with a complex history of Crohn's disease s/p ileostomy after colectomy performed at [facility] in [place], [place]. She is on chronic glucocorticoids with recent initiation of Humira therapy, multiple prior obstructions/near obstructions near ostomy, recurrent flares, and recent left UE DVT secondary to PICC placement for TPN, who presented with acute on chronic diffuse abdominal pain and nausea 1. Acute exacerbation of Crohn's disease with ostomy stenosis, present on admission. Ongoing Patient on intermediate glucocorticoid with Humira but had several complications. There is a possibility the patient has stoma stenosis again. - Colonoscopy with stoma dilation completed 11/11; final report by Dr. Valdez - Dr. Valdez with gastroenterology following, time and recommendations are greatly appreciated. - Avoiding PEG tube based on her hypoalbuminemia and elevated CRP. - Temporarily the patient should have a nasogastric or Dobhoff tube placed immediately and tube feeds reinitiated. - Stoma dilation planned for tomorrow 10 am, will hold fondaparinux this evening and stop tube feeds tomorrow morning at 4am. 2. Systemic inflammatory response with possible sepsis, acute, present on admission. Meeting criteria Leukocytosis, Bandemia. possible source of infection likely Gastrointestinal - Monitor vitals closely - No antibiotics as per GI at this time - Holding diuretics while giving IV fluids 3. Lactic acidosis. Present on admission. Resoled. Due to tissue hypoxia from possible Sepsis. - Lactic acid was a high of 3.0 and now normalized. 4. Hyponatremia, acute on chronic, present on admission. Improving. History of hyponatremia in previous hospitalizations likely secondary to poor po intake. Possible related to Adrenal insufficiency - Continue IV fluids resuscitations - Na 124. 5. 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 - Stress dose steroids completed: Solu-Cortef 100mg q8, transition to home dose when stable - Needs Endocrinology evaluation as outpatient 6. Severe protein/calorie malnutrition, chronic. BMI 12.5 History of TPN requirements due to malnutrition - Dobhoff will be placed Today. - Will consult Ladle Puller inpatient 7. Left upper extremity Deep vein thrombosis Secondary to previous PICC placement; Dx October 2016 - Continue Fondaparinux 5mg qhs x6 mo therapy Will hold This evening. 8. Chronic pain syndrome Long-standing issue; patient reports constant pain - Dilaudid 1mg IV q3h prn - Acetaminophen as needed for mild pain/fever/headache - Bowel regimen as needed - Antiemetic as needed disposition:discharge in 2-3 days Pain Evaluation: Adequate Pain Control VTE Mechanical Devices: Intermittant Pneumatic CD Resuscitation Status: CPR: Attempt Resuscitation Attending Statement The patient was seen and examined together with Dr. Shelton on 12/06/2016 and I agree with the history, exam and plan as outlined in the note above. BENSON SHELTON DO Dec 06, 2016 11:45 Rudy Villalobos MD Dec 06, 2016 16:14
[2016-12-06 12:55] LABS: APPEARANCE,URINE CLEAR (CLEAR,HAZY); COLOR,URINE YELLOW (YELLOW); OCCULT BLOOD,URINE NEGATIVE (NEGATIVE); UROBILINOGEN,URINE NORMAL (NORMAL)
[2016-12-06] MEDS ORDERED: LORazepam 0.5 mg Tablet PO PRN (14:15)
--- NOTE | 2016-12-06 14:30 | NUR ---
TF started Tube feeding started at 1330hrs. Vital 1.5 at 15ml/hr with 40ml flush every 4 hrs, as ordered.
--- NOTE | 2016-12-06 18:23 | NUR ---
tube feeding/Abd pain tube feeding started this afternoon, vital 1.5. started at 15ml/hr with 40ml flush every 4 hours. patient reported mild nausea, IV zofran effective. patient tolerating TF well. Abdominal pain has been better controlled today. IV dilaudid 2mg PRN as been effective. reinforced pain management education and pain scale with patient. she verbalized understanding. will continue to monitor.
[2016-12-06] MEDS: Alum-Mag Hydrox-Simeth 30 mL Suspension PO PRN (18:57)
[2016-12-06] MEDS ORDERED: FONDAPARINUX 5 MG/0.4 ML SUBQ SCH (21:00)
[2016-12-07] VITALS (10 sets, daily range): BP systolic 93–122; BP diastolic 66–90; PULSE 79–115; RESP 15–18; O2SAT 100
[2016-12-07 02:50] LABS: Platelet Count 152 bil/L (150-400)
[2016-12-07 03:12] LABS: BASOPHILS % (AUTO) 0.3 % (0-3); EOSINOPHILS % (AUTO) 0 % (0-5); MONOCYTES % (AUTO) 5.7 % (4-12); NEUTROPHILS % (AUTO) 76.8 % (40-74)
[2016-12-07] MEDS: HYDROmorphone 1 mg/mL Inj IVPUSH PRN ×5 (03:21→22:15)
--- NOTE | 2016-12-07 05:47 | NUR ---
Pain Management Pt reports pain at 510 at approx. 2030; 2mg Dilaudid administered with relief upon reassessment. Pt initially refused HS oxycodone, but upon reconsideration opted for administration. Pt reports pain at 1-11/14 upon reassessments, stated "I'll just call you for when I need pain medication tonight." No further c/o pain from pt until approx. 0330, Dilaudid administered with relief upon reassessment. Pt reports pain feels well controlled this shift. TF currently stopped, NS infusing at 100ml/hr; pt on clear liquids until 0700 and verbalized understanding. VSS. Tele ST 100s. At approx. 0230 pt called for assistance; pt found on knee in room after IV pole fell. Needed assistance standing; able to move independently in room, steady on feet. Slight skin abrasion to L knee; no other acute changes.
[2016-12-07] MEDS: Sodium Chloride LOK Flush 10 mL Syringe IVFLUSH SCH ×2 (07:42→16:30)
[2016-12-07] MEDS: Hydrocortisone 50 mg/mL 2 mL Inj IVPUSH SCH ×2 (07:42→22:00)
[2016-12-07] MEDS ORDERED: Ketamine 10 mg/mL 20 mL Inj ONE (07:43)
[2016-12-07] MEDS ORDERED: Propofol 10,000 mCg/mL 20 mL Inj ONE (07:43)
--- NOTE | 2016-12-07 08:56 | PCM.PNMED ---
Subjective Date of Service Dec 07, 2016 Subjective She fell in the bathroom last night but did not hurt herself. She is having intermittent abdominal pain. Her ostomy has some output. No difficulty with urination. No vomiting. No shortness of breath. Exam Vital Signs Vital Sign - Last Date Time Temp Pulse Resp B/P Pulse Ox O2 Delivery O2 Flow Rate FiO2 12/07/16 07:27 36.5 101 16 112/80 100 Room Air Intake and Output 12/06/16 12/06/16 12/07/16 Cumulative From/Thru 15:00 23:00 07:00 12/05/16 15:05 - 12/07/16 06:24 Intake Total 1631 ml 1994 ml 7298 ml Output Total 1100 ml 750 ml 3050 ml Balance 531 ml 1244 ml 4248 ml Intake Oral 600 ml 345 ml 1745 ml IV Total 983 ml 1369 ml 5225 ml Tube Feeding 48 ml 159 ml 207 ml Tube Irrigant 0 ml 121 ml 121 ml Output Urine Total 800 ml 100 ml 1800 ml Stool Total 300 ml 650 ml 1250 ml # Voids 2 Exam Alert oriented 3, tearful. Chronically ill, cushingoid. Anicteric sclera Lungs are clear with normal effort. Heart is regular without murmur gallop or rub. Abdomen soft nontender. Extremities are free of edema. Skin is free of rash or lesions. IVs and Medications Medications Reviewed: Medications were reviewed in detail Lab and Diagnostics Result Diagram: 12/07/16 0235 12/07/16 0235 Assessment & Plan Ms. Terra Beauchamp is a 31 year old woman that recently moved to the [facility] from the [facility] with a complex history of Crohn's disease s/p ileostomy after colectomy performed at [facility] in [place], [place]. She is on chronic glucocorticoids with recent initiation of Humira therapy, multiple prior obstructions/near obstructions near ostomy, recurrent flares, and recent left UE DVT secondary to PICC placement for TPN, who presented with acute on chronic diffuse abdominal pain and nausea 1. Acute exacerbation of Crohn's disease with ostomy stenosis, present on admission. Ongoing Patient on senior care glucocorticoid with Humira but had several complications. There is a possibility the patient has stoma stenosis again. - Colonoscopy with stoma dilation completed 11/11; final report by Dr. Valdez - Dr. Valdez with gastroenterology following, time and recommendations are greatly appreciated. - Avoiding PEG tube based on her hypoalbuminemia and elevated CRP. - Temporarily the patient should have a nasogastric or Dobhoff tube placed immediately and tube feeds reinitiated. - Stoma dilation planned for tomorrow 10 am, will hold fondaparinux this evening and stop tube feeds tomorrow morning at 4am. She is going for endoscopy today. We will continue her tube feeds in the meantime. 2. Systemic inflammatory response with possible sepsis, acute, present on admission. Meeting criteria Leukocytosis, Bandemia. possible source of infection likely Gastrointestinal - Monitor vitals closely - No antibiotics as per GI at this time - Holding diuretics while giving IV fluids Clinically she is improving. 3. Lactic acidosis. Present on admission. Resolved. Due to tissue hypoxia from possible Sepsis. - Lactic acid was a high of 3.0 and now normalized. 4. Hyponatremia, acute on chronic, present on admission. Improving. History of hyponatremia in previous hospitalizations likely secondary to poor po intake. Possible related to Adrenal insufficiency - Continue IV fluids resuscitations We will follow this clinically, stable.. 5. 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 - Stress dose steroids completed: Solu-Cortef 100mg q8, transition to home dose when stable - Needs Endocrinology evaluation as outpatient We will continue hydrocortisone. 6. Severe protein/calorie malnutrition, chronic. BMI 12.5 History of TPN requirements due to malnutrition - Dobhoff will be placed Today. - Will consult Mechanical Applications Engineer inpatient 7. Left upper extremity Deep vein thrombosis Secondary to previous PICC placement; Dx October 2016 - Continue Fondaparinux 5mg qhs x6 mo therapy Will hold This evening. 8. Chronic pain syndrome Long-standing issue; patient reports constant pain - Dilaudid 1mg IV q3h prn 9. Possible acute blood loss anemia from her Crohn's colitis. She also likely has a nutritional component to her anemia. We will follow clinically. Dictation for transfusion at this point. - Acetaminophen as needed for mild pain/fever/headache - Bowel regimen as needed - Antiemetic as needed disposition:discharge in 2-3 days Pain Evaluation: Adequate Pain Control VTE Mechanical Devices: Intermittant Pneumatic CD Resuscitation Status: CPR: Attempt Resuscitation Time spent 30 minutes Daryl Aguilar MD Dec 07, 2016 08:55
[2016-12-07] MEDS ORDERED: CALCIUM CHL IV ONE (09:00)
[2016-12-07] MEDS ORDERED: DEXTROSE 5% IV ONE (09:00)
[2016-12-07] MEDS ORDERED: Lactated Ringer's 1,000 ML IV ONE ×2 (09:43→12:17)
--- NOTE | 2016-12-07 12:11 | PCM.HPANE ---
Patient Data Date of Service: Dec 07, 2016 Surgeon Admitting Provider:Seth Hinojosa MD Attending Provider:Seth Hinojosa MD Primary Care Physician:Elissa Arteaga DO Other Provider: Reason for Visit Sev Dehydrated,Crohns Exac,Hyponatremia,Malnutr Ht/WT & BMI Height (Feet): 5 Height (Inches): 5.00 Weight (Kilograms): 38.800 Body Mass Index 14.00 Allergies Coded Allergies: Iodinated Contrast Media - Oral and (Verified Allergy, Severe, Shortness of Breath,full body rash/redness, 12/05/16) Past Anesthesia History Anesthesia History: Denies:: Abnormal Airway, Anesthesia Reactions, Difficult Intubation, Fam Anesthesia Reaction, Fam Malignant Hypertherm, Malignant Hyperthermia Diabetes History Hx Diabetes?: No Current Bedside Blood Glucose: 121 MRSA MRSA: No Medications Home Meds Incl Beta Radha: No Active Scripts Dicyclomine (Bentyl)10 Mg Smfbeqp72 Mg PO QID #120 CAPSULE Prov:Karissa Vicente DO 10/04/16 Reported Medications Adalimumab (Humira)40 Mg/0.8 Ml Pen.ij.kit40 Mg SQ [id number] 12/05/16 Lorazepam 1 Mg Tablet0.5 Mg PO TID PRN For Anxiety Ref 0 12/05/16 Oxycodone (Roxicodone)5 Mg Ryqyfb52 Mg PO QID Ref 0 12/05/16 Prednisone (PredniSONE)10 Mg Qjzxlt81 Mg PO DAILY Ref 0 12/05/16 Fondaparinux Sodium (Arixtra)5 Mg/0.4 Ml Syringe5 Mg SUBQ HS 12/05/16 Multivit with Calcium,Iron,Min (Therapeutic M)1 Each Tablet1 Each PO DAILY 12/05/16 Ascorbate Calcium (Vitamin C)500 Mg Iaucyt679 Mg PO DAILY 11/06/16 Promethazine 12.5 Mg Tablet6.25 Mg PO PRN For Nausea 10/21/16 Discontinued Scripts Oxycodone (Roxicodone)5 Mg Tablet5 Mg PO Q4H PRN For Pain #20 TABLET Ref 0 Prov:Elissa Arteaga DO 11/21/16 Oxycodone (Roxicodone)15 Mg Sexyel23 Mg PO Q6H PRN For Pain #30 TABLET Ref 0 Prov:Elissa Arteaga DO 11/21/16 Lorazepam 1 Mg Tablet1 Mg PO TID PRN For Anxiety #30 TABLET Ref 0 Prov:Elissa Arteaga DO 11/21/16 Prednisone (PredniSONE)10 Mg Obzkpe86 Mg PO DAILYWM #60 TABLET Prov:Elissa Arteaga DO 11/21/16 Furosemide 20 Mg Tab20 Mg PO DAILY #30 TAB Prov:Elissa Arteaga DO 11/21/16 Oxycodone (Roxicodone)15 Mg Xobyzk91 Mg PO Q6H PRN For Pain #60 TABLET Ref 0 Prov:Purnima Recio DO 10/28/16 Furosemide (Lasix)20 Mg Jkrdol49 Mg PO DAILY #15 TABLET Ref 0 Prov:Purnima Recio DO 10/28/16 Fondaparinux Sodium 5 Mg/0.4 Ml Syringe5 Mg SQ DAILY anticoagulation #30 SYR Prov:HU JAUREGUI DO 10/28/16 Adalimumab (Humira Crohn's)40 Mg/0.8 Ml Pen.ij.kit40 Mg SQ ONCE #2 DOSE Prov:Karissa Vicente DO 10/04/16 History History of ENT Problems?: No HEENT History: Denies:: Abnormal Airway Difficult Intubation Dysphagia Hearing Problem Sinus Problem Hx of Heart Problems?: Yes Cardiovascular History: Positive for:: Heart Murmur Denies:: Cardiac Surgery Chest Pain Congestive Heart Failure Edema Hypertension Irregular Heartbeat Pacemaker Thrombophlebitis Other Cardiac History: TAKE arixtra - LAST TAKEN 12/06/16 Hx of Respiratory Problem?: No Respiratory History: Denies:: Asthma COPD Chest Surgery Emphysema Hemoptysis Pneumonia Tuberculosis Hx Neurologic Problems?: No Neurological History: Denies:: CVA Hx of GI Problems?: Yes Gastrointestinal History: Positive for:: Heartburn Denies:: Diverticulitis Gastroesphageal Reflux Gastrointestinal Bleeding Hepatitis Hiatal Hernia Rectal Bleeding Other GI Pertinent History: severe Crohn's disease on long-term glucocoritcoid use s/p total proctocolectomy with end ileostomy on 11/11/16 severe malnutrition-has had Dobbhoff feeding tube, but recently pulled it out during anxiety attack, currently declines replacement Hx of Problems?: No Female Hx: Denies:: Currently Endometriosis Pelvic Inflammatory Problems with Breasts? Hx Musculoskeletal Problems?: Yes Musculoskeletal History: Denies:: Back Injury Joint Replacement Musculoskeletal Trauma Hx of Psycho/Social Problems?: Yes Psycho Social History: Positive for:: Anxiety Denies:: Bipolar Disorder Hx Depression Suicide Attempt Hx Surgeries?: Yes (total proctolectomy with end illeostomy ) Hx Any Other Health Problems?: Yes Other History: Positive for:: Hospitalization (Crohns/dehydration) Denies:: Cancer Thyroid Disease History Blood Transfusions: Positive for:: Accept Blood Products? Blood Transfusions Denies:: Blood Transfuse Reaction Hx Diabetes: NoBedside Blood Glucose: 121 Hx Alcohol Use: NoHx Substance Use: No Smoking Status: Never Smoker Have You Smoked inLast 12 mo: No Stop/Bang Treated for Sleep Apnea?: No Do You Have a CPAP Machine?: No S-Snoring: Do You Snore Loudly: No T-Tired: feel tired, fatigued: Yes O-Obsered: Observed not breath: No P-Blood Pressure: treated: No B- Body Mass Index > 35 kg/m2: No A- Age over 50: No N- Neck Large Circumference: No G- Gender Male: No FELIX Total Score: 1 Risk Assessment Category Category 1A: Patient has history of documented sleep apnea, and HAS NOT received any narcotic, sedative or anesthesia administration during this stay. Category 1B: Patient has history of documented sleep apnea, and HAS received any narcotic , sedative or anesthesia administration during this stay Category 2: Patient has SUSPECTED Obstructive Sleep Apnea, and HAS received any narcotic , sedative or anesthesia administration during this stay. Category 3: Patient has SUSPECTED Obstructive Sleep Apnea and HAS NOT received narcotic, sedative or anesthesia administration during this stay. Category 4: Outpatient in Procedural Areas with known sleep apnea or who screen positive for High Risk via the STOP/BANG questionnaire. Exam Exam Vital Signs Vital Signs Date Time Temp Pulse Resp B/P Pulse Ox O2 Delivery O2 Flow Rate FiO2 12/07/16 09:54 114 12/07/16 07:27 36.5 101 16 112/80 100 Room Air 12/07/16 05:20 111 General Appearance: Alert, Oriented X3, Cooperative, No Acute Distress HEENT/AIRWAY: MP 2 Lungs: Clear to Auscultation, Normal Air Movement Heart: Regular Rate/Rhythm Meds/Labs/Diagnostics Admission Meds Current Medications Hydrocortisone Sodium Succinate (Solu-Cortef Inj) 100 mg BID IVPUSH Last administered on 12/07/16t 07:42; Start 12/06/16 at 20:30 Bedside Blood Glucose: 121 Labs Test 12/05/16 16:00 12/05/16 17:26 12/06/16 09:22 12/06/16 10:27 Magnesium Level 2.0mg/dL (1.6-2.6) C-Reactive Protein 4.4mg/dL (0.0-0.5) Lipase 4U/L (13-60) Procalcitonin 0.35ng/mL (0.00-0.08) Hold Chavis Top Tube Received (Received) Erythrocyte Sedimentation Rate 1mm/hr (0-32) Lactic Acid Level 1.1mmol/L (0.4-2.0) Urine Color Yellow (YELLOW) Urine Appearance Clear (CLEAR,HAZY) Urine pH 6.0 (5.0-8.0) Urine Specific [place]ks 1.011 (1.003-1.035) Urine Protein Negativemg/dL (NEG,TRACE) Urine Glucose (UA) Negativemg/dL (NEGATIVE) Urine Ketones Negativemg/dL (NEGATIVE) Urine Occult Blood Negative (NEGATIVE) Urine Nitrite Negative (NEGATIVE) Urine Bilirubin Negative (NEGATIVE) Urine Urobilinogen Normalmg/dL (NORMAL) Urine Leukocyte Esterase Negative (NEGATIVE) Urine RBC 0-2/hpf (0-2) Urine WBC 0-5/hpf (0-5) Urine Epithelial Cells Occasional/hpf (NONE-MOD) Urine Crystals None seen (NONE SEEN) Urine Bacteria None/hpf (NONE-FEW) Urine Hyaline Casts None/lpf (NONE) Urine Granular Casts None seen (NONE SEEN) Urine Waxy Casts None seen (NONE SEEN) Urine Red Blood Cell Casts None seen (NONE SEEN) Urine White Blood Cell Casts None seen (NONE SEEN) Urine Mucus None seen (None Seen) Urine Trichomonas None seen (NONE SEEN) Urine Yeast None (NONE SEEN) Urinalysis Comment Renal epi seen Urine Culture Reflexed Not indicated Test 12/07/16 02:35 White Blood Count 6.7th/mm3 (3.8-10.1) Red Blood Count 3.54mil/mm3 (3.90-5.20) Hemoglobin 8.5g/dL (12.0-15.6) Hematocrit 26.9% (35.0-46.0) Mean Corpuscular Volume 76.0fL (81-100) Mean Corpuscular Hemoglobin 24.0pg (27.0-35.0) Mean Corpuscular Hemoglobin Concent 31.6% (32.0-37.0) Red Cell Distribution Width 17.3% (12.3-15.4) Platelet Count 152bil/L (150-400) Neutrophils (%) (Auto) 76.8% (40-74) Lymphocytes (%) (Auto) 16.8% (14-46) Monocytes (%) (Auto) 5.7% (4-12) Eosinophils (%) (Auto) 0% (0-5) Basophils (%) (Auto) 0.3% (0-3) Band Neutrophils % 0% (1-5) Sodium Level 125mEq/L (134-144) Potassium Level 4.1mEq/L (3.5-5.2) Chloride Level 96mEq/L (97-108) Carbon Dioxide Level 20mmol/L (18-29) Blood Urea Nitrogen 21mg/dL (6-20) Creatinine 0.68mg/dL (0.57-1.00) Estimat Glomerular Filtration Rate 145mL/min (>59) Glucose Level 147mg/dL (60-99) Calcium Level 5.9mg/dL (8.5-10.1) Total Bilirubin 0.2mg/dL (0.0-1.2) Aspartate Amino Transf (AST/SGOT) 18U/L (0-50) Alanine Aminotransferase (ALT/SGPT) 19U/L (0-32) Alkaline Phosphatase 103U/L (25-150) Total Protein 3.2g/dL (6.4-8.4) Albumin 1.2g/dL (3.4-5.0) Plan Impression Patient chart reviewed, patient interviewed and anesthestic plan with risks, benefits, and alternatives discussed, and informed consent obtained. ASA Physical Status: ASA3 Severe Disease (Crohn's disease) Anesthetic Plan: MAC Bene/Risks/Altern/Consents: Yes HP Complete Prior to Induction: Yes Kushal Balderas MD Dec 07, 2016 12:11
--- NOTE | 2016-12-07 12:41 | NUR ---
Endo Pt transported to [facility] for EGD and stoma dilation at 10:00, report given to LANEY Bai.
[2016-12-07] MEDS ORDERED: Lactated Ringer's 1,000 ML IV SCH (12:47)
[2016-12-07] MEDS ORDERED: Ondansetron 2 mg/mL 2 mL Inj IVPUSH PRN (12:50)
--- NOTE | 2016-12-07 13:04 | NUR ---
Social Work: Initial Assessment Attempt SW attempted to complete initial assessment, but patient is off of the floor at Endoscopy. SW will attempt to complete initial; assessment when patient is back on the floor. Brook Cassidy, KEMI, ACM
--- NOTE | 2016-12-07 13:06 | NUR ---
ONESIMO Medical Insurance Clerk attempted to have patient sign ONESIMO, but patient is off of the floor.
[2016-12-07] MEDS: 0.9% Sodium Chloride 1,000 ML IV SCH ×2 (14:36→20:08)
--- NOTE | 2016-12-07 15:31 | PCM.ANEP2 ---
Post Anesthesia Evaluation ASA/CMS Post Anesthesia Date of Service: Dec 07, 2016 VS in Patient's Normal Range?: Yes Resp Stable; Airway Patent?: Yes CV Function & Hydration Stable: Yes Mental Status Recovered?: Yes Pain control Satisfactory?: Yes N/V Control Satisfactory?: Yes Kushal Balderas MD Dec 07, 2016 15:31
[2016-12-07] MEDS: Ondansetron 2 mg/mL 2 mL Inj IVPUSH PRN ×2 (17:09→22:02)
--- NOTE | 2016-12-07 19:34 | NUR ---
Cardiac: Pt denies CP, Tele SR 90s-100s Resp: Pt denies dyspnea, SpO2 98% on RA GI/: Tube feed restarted at 35 once pt back from endo. Pt reports some nausea this afternoon, zofran effective. Pt taking PO nutrition at dinner and tolerating well. Pt continues to have significant abdominal pain which is fairly well controlled by scheduled PO oxycodone and PRN Dilaudid. Neuro: Pt AOx3, able to PERALTA, steady on feet without symptoms.
--- NOTE | 2016-12-07 20:33 | ENDO ---
[address] [address] ENDOSCOPY PROCEDURE PATIENT: MAE FELIZ : 1985 MR#: [id number] ADMIT: 12/05/2016 JOB ID: [id number] DATE: 12/07/2016 PROCEDURE: Ileoscopy under fluoroscopy with balloon dilatation. INDICATIONS: A 31-year-old female with complex, complicated Crohn's and established right lower quadrant ileostomy stoma stenosis. Repeat dilatation is pursued today. EQUIPMENT: XP 190N. COMPLICATIONS: None identified. PROCEDURE INFORMATION: After the risks and benefits were explained, written and verbal informed consent was obtained. The patient was placed into the supine position. Sedation applied, the stoma bag removed. We attempted to keep the patient clean with numerous towels during the procedure because this was accomplished without a prep. I was initially able to advance the 5 mm endoscope into the ileum. Again, the anastomosis had a slightly unusual structure to it. We eventually found the lumen traversing more proximally which based on the transillumination actually appeared to go down into the pelvis region. At any rate, ultimately, we were able to pass the guidewire from the CRE 10-12 mm balloon into the lumen, left this in place, removed the scope and advanced the balloon over the guidewire across the stoma. We sequentially dilated at 10, 11 and then finally at 12 mm. The 12 mm setting was held for a couple of minutes. There were no hemorrhagic complications. The balloon and wire were removed. The patient tolerated the procedure well. Another stoma bag was secured in position. The patient was cleaned up. FINDINGS: As above. ENDOSCOPIC DIAGNOSIS: Recurrent stomal stenosis status post balloon dilatation to 12 mm under fluoroscopy. RECOMMENDATIONS: 1. Restart fondaparinux tonight. 2. Resume tube feeds immediately and well chewed primarily smoothie consistency diet as tolerated. 3. Continue steroid taper. 4. The patient will be due for [facility] this coming weekend.
[2016-12-07] MEDS: Alum-Mag Hydrox-Simeth 30 mL Suspension PO PRN (22:38)
[2016-12-08] VITALS (8 sets, daily range): BP systolic 102–136; BP diastolic 68–99; PULSE 75–98; RESP 14–18; O2SAT 98–100
[2016-12-08] MEDS: Sodium Chloride LOK Flush 10 mL Syringe IVFLUSH SCH ×3 (00:30→16:24)
[2016-12-08] MEDS: 0.9% Sodium Chloride 1,000 ML IV SCH ×2 (02:56→12:56)
--- NOTE | 2016-12-08 03:43 | NUR ---
Fall Pt fell at 0320 in the bathroom. Pt stated her IV pool snagged on the barrier between the bathroom floor and the room floor and the poll fell and she with it. Pt fell onto bottom and able to pull the bathroom light. Pt reports no injuries. Pt assisted to standing position and assisted with toileting. Pt able to walk with SBA back to bed. Pt now SBA and asked to call for assistance when OOB.
[2016-12-08] MEDS: HYDROmorphone 1 mg/mL Inj IVPUSH PRN ×4 (04:52→18:42)
[2016-12-08] MEDS: Hydrocortisone 50 mg/mL 2 mL Inj IVPUSH SCH (08:26)
--- NOTE | 2016-12-08 11:05 | PCM.PNMED ---
Subjective Date of Service Dec 08, 2016 Subjective GASTROENTEROLOGY PROGRESS NOTE Overnight: Reports state that patient fell in bathroom, IV pole snagged at threshold. Today: Patient states that she is doing well, considering her history and compared to admission. Denies any LOC, syncopal or near-syncopal episodes related to her recent fall. Denies any injuries. States that she is tolerating tube feeds and po intake. Admits to abdominal and generalized pain, that is not exacerbated beyond baseline. Denies any fever, chills, nausea, vomiting, dizziness. Ostomy output has changed to liquid, yellow color without evidence of blood contained. Exam Vital Signs Vital Sign - Last Date Time Temp Pulse Resp B/P Pulse Ox O2 Delivery O2 Flow Rate FiO2 12/08/16 09:27 98 12/08/16 08:16 36.5 14 112/75 100 Room Air Intake and Output 12/07/16 12/07/16 12/08/16 Cumulative From/Thru 15:00 23:00 07:00 12/05/16 15:05 - 12/08/16 06:35 Intake Total 400 ml 814 ml 2270 ml 55162 ml Output Total 750 ml 1000 ml 4800 ml Balance 400 ml 64 ml 1270 ml 5982 ml Intake Oral 237 ml 500 ml 2482 ml IV Total 400 ml 577 ml 1190 ml 7392 ml Tube Feeding 580 ml 787 ml Tube Irrigant 121 ml Output Urine Total 600 ml 400 ml 2800 ml Stool Total 150 ml 600 ml 2000 ml # Voids 1 3 # Bowel Movements 3 3 Exam General: AAOx3, pleasant and cooperative HENT: Atraumatic; cushinoid-features, EOMI, sclera anicteric; NGT in place and secured Neck: Soft, trachea midline Cardiac: Tachycardic with rate approx 90 at time of examination; II/ systolic murmur Respiratory: Clear to auscultation bilaterally; adequate air flow all castillo; no wheeze Abdomen: Soft, nondistended; mildly tender to palpation; ostomy bag secured with liquid yellow output without evidence blood Neuro: CNII-XII grossly intact; facial expressions symmetric; speech without slur Psych: Appropriate mood, affect, and responses to questioning; good insight and judgment Lab and Diagnostics Result Diagram: 12/07/16 0235 12/07/16 0235 Assessment & Plan GASTROENTEROLOGY PROGRESS NOTE Ms. Terra Beauchamp is an extremely pleasant 31 year old woman that recently moved to the [facility] from the [facility] with a complex history of Crohn 's disease s/p ileostomy after colectomy performed at [facility] in [place], [place]. She is on chronic glucocorticoids with recent initiation of Humira therapy, multiple prior obstructions/near obstructions near ostomy, recurrent flares, and recent left UE DVT secondary to PICC placement for TPN, who presented to the ED 12/07/2016 with acute on chronic diffuse abdominal pain, and nausea. Reason for consult: Established GI patient with complex GI history that is the underlying etiology of current symptoms Assessments - RLQ ileostomy s/p colectomy secondary to Crohn's disease - Recurrent ileostomy stoma stenosis - Crohn's disease - Adrenal insufficiency secondary to chronic steroid use - DVT secondary to PICC placement - Severe protein/calorie malnutrition Plan: - Stop IV steroids - Start po prednisone 30mg daily 12/09/2016; plans to taper - Continue tube feeds, and encourage po intake of soft/smoothie dietary items - Complete change of ileostomy bag, and adhesives - Continue fondaparinux - Pending progress- if patient remains hospitalized this weekend, family will need to bring in Humira for administration through our pharmacy. Thank you for this interesting consult, we will happily follow along with you. If you have any concerns or questions, please do not hesitate to contact us. Total time: 30 minutes Pain Evaluation: Adequate Pain Control VTE Prophylaxis: Sub-Q Fondaparinux VTE Mechanical Devices: Intermittant Pneumatic CD Resuscitation Status: CPR: Attempt Resuscitation Attending Statement Patiient seen and examined. Agree with assessment and plan as described by Dr Arteaga. Elissa Arteaga DO Dec 08, 2016 11:05 Kirby Valdez MD Dec 08, 2016 22:09 We will continue hydrocortisone. 6. Severe protein/calorie malnutrition, chronic. BMI 12.5 History of TPN requirements due to malnutrition - Dobhoff will be placed Today. - Will consult [facility] inpatient 7. Left upper extremity Deep vein thrombosis Secondary to previous PICC placement; Dx October 2016 - Continue Fondaparinux 5mg qhs x6 mo therapy Will hold This evening. 8. Chronic pain syndrome Long-standing issue; patient reports constant pain - Dilaudid 1mg IV q3h prn 9. Possible acute blood loss anemia from her Crohn's colitis. She also likely has a nutritional component to her anemia. We will follow clinically. Dictation for transfusion at this point. - Acetaminophen as needed for mild pain/fever/headache - Bowel regimen as needed - Antiemetic as needed disposition:discharge in 2-3 days VTE Mechanical Devices: Intermittant Pneumatic CD Resuscitation Status: CPR: Attempt Resuscitation Elissa Arteaga DO Dec 08, 2016 11:05
--- NOTE | 2016-12-08 14:01 | NUR ---
NUTRITION FOLLOW-UP: ASSESS: 31-year-old female admitted with severe dehydration, Crohn's disease and recent PICC line induced left subclavian DVT with multifocal pulmonary emboli. Patient reported that her feeding tube clogged repeatedly at home, and she discontinued enteral feeding. TF was re-started here at hospital. She is tolerating it well at goal of 35ml/hr. Pox2 meals has been fair at 25-90%. She was NPO for stoma dilation 12/07. Pt reported that she tolerates soft foods best. No major complaints at this time. 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 DIET: Mechanical soft, high calorie. PO 25-90% x2 meals NUTRITION SUPPORT: Vital 1.5 @ 35ml/hr to provide 1208 kcal, 55 g protein, sufficient to meet 100% nutrient needs. LABS: Reviewed. Na 125, Cl 96, Bun 21, Glu 147, Ca 5.9, Alb 1.2 MEDICATIONS: Reviewed. GI symptoms / stool: 800ml 12/07/16 Skin Integrity: No issues at this time. Wilfrido 19. Very thin woman sitting up in bed eating lunch. ANTHROPOMETRICS: Current Wt: 40.6 kg BMI: 14.9 kg/m2, admit wt 36.6kg Weight loss: 14.6 kg weight loss x 17 days = 28.52% = SEVERE MALNUTRITION. However some of this wt loss may be fluid related as pt was fluid overloaded last admit. IBW: 56.8 kg (64.4% IBW) ESTIMATED NEEDS (SEVERE MALNUTRITION): Calories: 1100 - 1280 kcal (30 - 35 kcal / kg BW) Protein: 45 - 55 g protein (1.2 - 1.5 g / kg BW) Fluid: Approx. 1011-1280mL (30-35 mL / kg BW) NUTRITION DIAGNOSIS: 1) Severe malnutrition related to complex Crohn's disease with multiple GI surgeries / complications, as evidenced by 28.52% weight loss x 17 days, self discontinuation of nutrition support in the home setting and BMI of 14.9kg/m2--PERSISTS INTERVENTION: 1) Continue Vital 1.5 at goal rate of 35ml/hr to provide 1208 kcal, 55 g protein, sufficient to meet 100% nutrient needs. 2) Continue Gelatein and Magic Cup on all trays. Pt does not like Ensure but she does like Ensure CL so will add Ensure CL to lunch tray per pt preference. MONITOR/EVALUATE: wt, Diet tolerance, enteral feeding tolerance, PO intake, labs, GI/nutrition status. Follow up per high nutrition risk guidelines.
--- NOTE | 2016-12-08 14:41 | NUR ---
Pain/ Ostomy pt reporting moderate to severe abdominal pain. prn dilaudid and scheduled oxycodone given per md order effective results. Pt set up with supplies for ostomy change, changed without issue. will continue to monitor.
--- NOTE | 2016-12-08 15:23 | PCM.PNMED ---
Subjective Date of Service Dec 08, 2016 Subjective She is doing well today. Less abdominal pain. Her ostomy site is doing better. She still feels weak and somewhat fatigued. A little dyspnea. She is a little bit of volume overload with pedal edema and some orthopnea. No chest pain. Exam Vital Signs Vital Sign - Last Date Time Temp Pulse Resp B/P Pulse Ox O2 Delivery O2 Flow Rate FiO2 12/08/16 13:11 36.4 82 16 132/82 100 Room Air Intake and Output 12/07/16 12/07/16 12/08/16 Cumulative From/Thru 15:00 23:00 07:00 12/05/16 15:05 - 12/08/16 06:35 Intake Total 400 ml 814 ml 2270 ml 65134 ml Output Total 750 ml 1000 ml 4800 ml Balance 400 ml 64 ml 1270 ml 5982 ml Intake Oral 237 ml 500 ml 2482 ml IV Total 400 ml 577 ml 1190 ml 7392 ml Tube Feeding 580 ml 787 ml Tube Irrigant 121 ml Output Urine Total 600 ml 400 ml 2800 ml Stool Total 150 ml 600 ml 2000 ml # Voids 1 3 # Bowel Movements 3 3 Exam Chronically ill-appearing, cushingoid features. Anicteric sclera. Lungs are clear with normal rate and effort. Heart is regular without murmur gallop or rub Abdomen is soft nontender her ostomy is unremarkable. Extremities with 1+ edema. Skin is pale. Speech is fluent IVs and Medications Medications Reviewed: Medications were reviewed in detail Lab and Diagnostics Result Diagram: 12/07/16 0235 12/07/16 0235 Assessment & Plan 1. Crohn's with recurrent ostomy stenosis, present on admission. Improved. She is status post dilation with endoscopy yesterday. The plan is to convert her back to oral steroids. We will advance her diet and see if she does symptomatically. We will resume tube feeds. 2. Systemic inflammatory response with possible sepsis, acute, resolved. Clinically she has no evidence of active source of infection. 3. Lactic acidosis. Present on admission. Resolved. This is likely related to volume depletion. 4. Hyponatremia, hypovolemic. POA. Improved. 5. Suspected adrenal insufficiency secondary to care home steroid use. -Resume oral steroids a baseline dose. 6. Severe protein/calorie malnutrition, chronic. BMI 12.5 History of TPN requirements due to malnutrition - Dobhoff placed -Continue tube feeds 7. Left upper extremity Deep vein thrombosis Secondary to previous PICC placement; Dx October 2016 -Resume Fondaparinux 5mg qhs x6 mo therapy Probable discharge home in 1-2 days. Pain Evaluation: Adequate Pain Control VTE Prophylaxis: Sub-Q Fondaparinux VTE Mechanical Devices: Intermittant Pneumatic CD Resuscitation Status: CPR: Attempt Resuscitation Time spent 25 minutes Daryl Aguilar MD Dec 08, 2016 15:23
--- NOTE | 2016-12-08 15:49 | NUR ---
Evaluation completed. Please go to "Notes" then click on "Assessments and Notes" (bottom left corner of screen). Then select appropriate discipline tab on top of screen.
--- NOTE | 2016-12-09 00:29 | NUR ---
Ambulation/Pain Pt steady on her feet. SBA for safety and assisting with moving IV pole as pt walks. Pt denies any pain, states she received analgesics at available times and that has kept her pain at a zero.
[2016-12-09] MEDS: Sodium Chloride LOK Flush 10 mL Syringe IVFLUSH SCH ×2 (00:30→08:26)
[2016-12-09] MEDS: 0.9% Sodium Chloride 1,000 ML IV SCH ×2 (02:10→12:23)
[2016-12-09 04:05] VITALS: BP 99/72; PULSE 99; RESP 16; O2SAT 98
[2016-12-09] MEDS: HYDROmorphone 1 mg/mL Inj IVPUSH PRN (05:18)
[2016-12-09 08:28] VITALS: BP 105/69; PULSE 83; RESP 18; O2SAT 100
[2016-12-09] MEDS ORDERED: predniSONE 10 mg Tablet PO SCH (08:30)
[2016-12-09 11:02] VITALS: PULSE 70
--- NOTE | 2016-12-09 11:24 | NUR ---
Social Work Note: Initial Assessment Data& Assessment: EMR reviewed. SW met with pt at bedside to discuss discharge planning and assess for any unmet needs. Terra Beauchamp is a 31 year old female admitted on 12/05/2016 for severe dehydration, Crohns exacerbation and hyponatremia. Pt has Medicare insurance coverage and sees Elissa Arteaga DO for primary care. Pt lives in [place] with her mother and is independent with ADL's at baseline but does use a cane for ambulation assistance. Pt mother transports her to any appointments. Pt is open with [facility] and [facility] for her feeding tube, access provided. Pt confirmed she would like services will be resumed at time of discharge. Pt does not have hx at a SNF. Pt does not have LTC insurance or VA benefits. Pt provided with DPOA/Advance Directive paperwork to review and complete when possible. Pt sister transporting her home when medically ready. Pt denies any other needs. No other discharge needs identified. Plan: Anticipated discharge home via POV with resume [facility] for feeding tube and [facility]. Pt sister transporting her home when medically ready. Pt denies any other needs. No other discharge needs identified. ASHLYN Lilly Addendum: 12/09/16 at 1129 by ALEKS HERNÁNDEZ Amended: Links added.
[2016-12-09 12:20] VITALS: BP 107/77; PULSE 91; RESP 14; O2SAT 95
--- NOTE | 2016-12-09 14:09 | PCM.PNMED ---
Subjective Date of Service Dec 09, 2016 Subjective GASTROENTEROLOGY PROGRESS NOTE Overnight: No acute events Today: States that she feels well. Denies any nausea, vomiting, fever, chills. States that her abdominal pain is well controlled, and did not need afternoon pain medications. Upon questioning patient about NGT, she states that it was pulled approximately 2 days after discharge from previous admission secondary to it being clogged, as she states she was unaware that flushes would be needed to keep tube patent. She would like to return home in lieu of a skilled facility , and states that she is amendable to tube placement and phonign for assistance. She acknowledges that nutrition is luo not only for her improved health, but survival. Exam Vital Signs Vital Sign - Last Date Time Temp Pulse Resp B/P Pulse Ox O2 Delivery O2 Flow Rate FiO2 12/09/16 12:20 36.7 91 14 107/77 95 Room Air Intake and Output 12/08/16 12/08/16 12/09/16 Cumulative From/Thru 15:00 23:00 07:00 12/05/16 15:05 - 12/09/16 06:24 Intake Total 2302 ml 1857 ml 20745 ml Output Total 2050 ml 900 ml 7750 ml Balance 252 ml 957 ml 7191 ml Intake Oral 360 ml 500 ml 3342 ml IV Total 962 ml 1357 ml 9711 ml Tube Feeding 940 ml 1727 ml Tube Irrigant 40 ml 161 ml Output Urine Total 1650 ml 600 ml 5050 ml Stool Total 400 ml 300 ml 2700 ml # Voids 3 # Bowel Movements 3 Exam General: AAOx3, pleasant and cooperative; frail and emaciated HENT: Atraumatic; cushinoid-features, EOMI, sclera anicteric; NGT in place and secured Neck: Soft, trachea midline Cardiac: Tachycardic with rate approx 100 at time of examination; II/ systolic murmur Respiratory: Clear to auscultation bilaterally; adequate air flow all castillo; no wheeze Abdomen: Soft, nondistended; mildly tender to palpation; ostomy bag secured with liquid brown output without evidence blood; clean bandages Neuro: CNII-XII grossly intact; facial expressions symmetric; speech without slur Psych: Appropriate mood, affect, and responses to questioning; good insight and judgment Lab and Diagnostics Result Diagram: 12/07/1623412/07/16234 Assessment & Plan GASTROENTEROLOGY PROGRESS NOTE Ms. Terra Beauchamp is an extremely pleasant 31 year old woman that recently moved to the [facility] from the [facility] with a complex history of Crohn 's disease s/p ileostomy after colectomy performed at [facility] in [place], [place]. She is on chronic glucocorticoids with recent initiation of Humira therapy, multiple prior obstructions/near obstructions near ostomy, recurrent flares, and recent left UE DVT secondary to PICC placement for TPN, who presented to the ED 12/07/2016 with acute on chronic diffuse abdominal pain, and nausea. 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 Had discussion about NGT and troubleshooting issues with her Home Health Services. Discussed that is it imperative that she keep in tube for feeds to maintain adequate nutrition, and that lack of nutrition will continue to lead to repeated admissions, poor quality of life, and possibly her demise. It was offered that a SNF may be an option for her if she is no longer willing or able to maintain her nutrition at home on her own. She acknowledges that the tube is necessary, and states that it was removed secondary to it clogging, and she was unaware that flushes were required to keep it patent. Will continue to monitor throughout today, earliest anticipated DC would be next 24-48 hours pending progress and ability to return home with the understanding of the care she will need to provide to herself. Thank you for this interesting consult, we will happily follow along with you. If you have any concerns or questions, please do not hesitate to contact us. Total time: 30 minutes Pain Evaluation: Adequate Pain Control VTE Prophylaxis: Sub-Q Fondaparinux VTE Mechanical Devices: Intermittant Pneumatic CD Resuscitation Status: CPR: Attempt Resuscitation Attending Statement Patient seen and examined. Agree with assessment and plan as described by Dr Arteaga. Terra is committed to keeping the feeding tube in place to supplement her nutrition needs. She is desperate to be discharged home. Will call with any problems. I've requested a f/u visit in my office this coming thursday with labs on thursday. Encouraged Terra to taper down from the 30mg prednisone per day fairly rapidly back down to 10mg/day over the next week , then to drop down to 5mg/d in about 7 more days, then 5mg every other day for a wk then stop. Due for Humira this coming . Will repeat stoma dilatation as needed. Elissa Arteaga DO Dec 09, 2016 14:09 Kirby Valdez MD Dec 09, 2016 22:39
--- NOTE | 2016-12-09 14:42 | PCM.DIMED ---
Discharge Instructions Date of Service Dec 09, 2016 Dates of Hospitalization Dec 05, 2016 at 18:42 Discharge Diagnosis Discharge Diagnosis 1. Crohn's with recurrent ostomy stenosis, present on admission. Improved. 2. Systemic inflammatory response with possible sepsis, acute, resolved. Clinically she has no evidence of active source of infection. 3. Lactic acidosis. Present on admission. Resolved. 4. Hyponatremia, hypovolemic. POA. Improved. 5. 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 6. Severe protein/calorie malnutrition, chronic. BMI 12.5 -Continue tube feeds 7. Left upper extremity Deep vein thrombosis Diet Heart Healthy, Other (Continue tube feeds) Activity No restrictions Patient Instructions Call Dr Valdez for appt within 7-10 days Daryl Aguilar MD Dec 09, 2016 14:42
[2016-12-09] MEDS ORDERED: PRE10 PO (14:43)
--- NOTE | 2016-12-09 16:25 | NUR ---
Social Work Note: Discharge Data& Assessment: Per pt is medically ready for discharge. Terra Beauchamp is a 31 year old female admitted on 12/05/2016 for severe dehydration. Per pt is medically improved and ready to discharge. SW met with pt at bedside to confirm discharge plan and assess for any unmet needs. After further discussion, pt had confused home health with home infusion. Pt does not believe she requires a PT hoop bending machine operator for her feeding tube at home and is declining home health. [facility] Notified. Pt is ambulating independently and unsure if she will be home bound. SW notified Home [facility]fusion of pt discharge, liaison met with pt at bedside to check in. Home roving weight gauger scheduled to check in on pt in her home tomorrow 12/10/2016 for her NG tube and teaching. Pt sister transporting pt home. Pt denies any other needs. No other discharge needs identified. All updated and agreeable to plan. Plan: Per pt is medically ready to discharge home via POV with resume [facility] for her NG Tube. Home roving weight gauger scheduled to check in on pt in her home tomorrow 12/10/2016 for her NG tube and teaching. Pt sister transporting pt home. Pt denies any other needs. No other discharge needs identified. All updated and agreeable to plan. ASHLYN Lilly
--- NOTE | 2016-12-09 17:33 | NUR ---
Discharge pt ordered for discharge home, pt aware. discharge instructions and medications reviewed with patient and family. pt escorted via wheelchair with all belongings at about 1700.
--- NOTE | 2016-12-30 15:03 | PCM.DC.MED ---
Discharge Summary Date of Service Dec 09, 2016 Dates of Hospitalization Date of Hospital Admission Dec 05, 2016 at 18:42 Date of Discharge: Dec 09, 2016 Providers: Admitting Physician: Seth Hinojosa MD Primary Care Physician: Elissa Arteaga DO Attending Physician: Seth Hinojosa MD Diagnosis at Time of Discharge Diagnosis at Time of Discharge 1. Crohn's with recurrent ostomy stenosis, present on admission. Improved. 2. Systemic inflammatory response with possible sepsis, acute, resolved. Clinically she has no evidence of active source of infection. 3. Lactic acidosis. Present on admission. Resolved. 4. Hyponatremia, hypovolemic. POA. Improved. 5. Suspected adrenal insufficiency secondary to retirement steroid use. 6. Severe protein/calorie malnutrition, chronic. BMI 12.5 -Continue tube feeds 7. Left upper extremity Deep vein thrombosis Consultations Dr Valdez Procedures XRay, CTs & MRIs None Cardiac Echo Impression None Invasive Procedures endoscopy with ostomy dilation. See operative report. Brief History Ms. Terra Beauchamp is a 31 year old woman that recently moved to the [facility] from the [facility] with a complex history of Crohn's disease s/p ileostomy after colectomy performed at [facility] in [place], [place]. She is on chronic glucocorticoids with recent initiation of Humira therapy, multiple prior obstructions/near obstructions near ostomy, recurrent flares, and recent left UE DVT secondary to PICC placement for TPN, who presented to the Emergency department with acute on chronic diffuse abdominal pain and nausea Patient was seen by Dr. Jon at the GI clinic and recommended to the patient direct admission but she declined for further discussion she agreed to come to the ED for IV fluids, laboratory evaluation, and reevaluation. Patient was reportedly hypotensive with blood pressure of 80, heart rate 130 in clinic Patient reported ongoing nausea onset 2 days ago. She describes abdominal pain as cramping, sharp, shooting, and burning. Associated symptoms includes poor appetite (everything she eats goes "right through her."), weight loss of 5 lbs since she left the hospital. Denies any dyspnea, chest pain or fever. She was admitted, rehydrated. She underwent endoscopy with dilatation. She improved. She was able to advance her diet and was ready for discharge on the day of discharge. Hospital Course GASTROENTEROLOGY PROGRESS NOTE Ms. Terra Beauchamp is an extremely pleasant 31 year old woman that recently moved to the [facility] from the [facility] with a complex history of Crohn 's disease s/p ileostomy after colectomy performed at [facility] in [place], [place]. She is on chronic glucocorticoids with recent initiation of Humira therapy, multiple prior obstructions/near obstructions near ostomy, recurrent flares, and recent left UE DVT secondary to PICC placement for TPN, who presented to the ED 12/07/2016 with acute on chronic diffuse abdominal pain, and nausea. 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 Had discussion about NGT and troubleshooting issues with her Home Health Services. Discussed that is it imperative that she keep in tube for feeds to maintain adequate nutrition, and that lack of nutrition will continue to lead to repeated admissions, poor quality of life, and possibly her demise. It was offered that a SNF may be an option for her if she is no longer willing or able to maintain her nutrition at home on her own. She acknowledges that the tube is necessary, and states that it was removed secondary to it clogging, and she was unaware that flushes were required to keep it patent. Will continue to monitor throughout today, earliest anticipated DC would be next 24-48 hours pending progress and ability to return home with the understanding of the care she will need to provide to herself. Thank you for this interesting consult, we will happily follow along with you. If you have any concerns or questions, please do not hesitate to contact us. Total time: 30 minutes Exam VS were stable. Exam Patient was seen and examined on the day of discharge. Test 12/05/16 16:00 12/05/16 17:26 12/06/16 09:22 12/06/16 10:27 Magnesium Level 2.0mg/dL (1.6-2.6) C-Reactive Protein 4.4mg/dL (0.0-0.5) Lipase 4U/L (13-60) Procalcitonin 0.35ng/mL (0.00-0.08) Hold Chavis Top Tube Received (Received) Erythrocyte Sedimentation Rate 1mm/hr (0-32) Lactic Acid Level 1.1mmol/L (0.4-2.0) Urine Color Yellow (YELLOW) Urine Appearance Clear (CLEAR,HAZY) Urine pH 6.0 (5.0-8.0) Urine Specific [place] 1.011 (1.003-1.035) Urine Protein Negativemg/dL (NEG,TRACE) Urine Glucose (UA) Negativemg/dL (NEGATIVE) Urine Ketones Negativemg/dL (NEGATIVE) Urine Occult Blood Negative (NEGATIVE) Urine Nitrite Negative (NEGATIVE) Urine Bilirubin Negative (NEGATIVE) Urine Urobilinogen Normalmg/dL (NORMAL) Urine Leukocyte Esterase Negative (NEGATIVE) Urine RBC 0-2/hpf (0-2) Urine WBC 0-5/hpf (0-5) Urine Epithelial Cells Occasional/hpf (NONE-MOD) Urine Crystals None seen (NONE SEEN) Urine Bacteria None/hpf (NONE-FEW) Urine Hyaline Casts None/lpf (NONE) Urine Granular Casts None seen (NONE SEEN) Urine Waxy Casts None seen (NONE SEEN) Urine Red Blood Cell Casts None seen (NONE SEEN) Urine White Blood Cell Casts None seen (NONE SEEN) Urine Mucus None seen (None Seen) Urine Trichomonas None seen (NONE SEEN) Urine Yeast None (NONE SEEN) Urinalysis Comment Renal epi seen Urine Culture Reflexed Not indicated Test 12/07/16 02:35 White Blood Count 6.7th/mm3 (3.8-10.1) Red Blood Count 3.54mil/mm3 (3.90-5.20) Hemoglobin 8.5g/dL (12.0-15.6) Hematocrit 26.9% (35.0-46.0) Mean Corpuscular Volume 76.0fL (81-100) Mean Corpuscular Hemoglobin 24.0pg (27.0-35.0) Mean Corpuscular Hemoglobin Concent 31.6% (32.0-37.0) Red Cell Distribution Width 17.3% (12.3-15.4) Platelet Count 152bil/L (150-400) Neutrophils (%) (Auto) 76.8% (40-74) Lymphocytes (%) (Auto) 16.8% (14-46) Monocytes (%) (Auto) 5.7% (4-12) Eosinophils (%) (Auto) 0% (0-5) Basophils (%) (Auto) 0.3% (0-3) Band Neutrophils % 0% (1-5) Sodium Level 125mEq/L (134-144) Potassium Level 4.1mEq/L (3.5-5.2) Chloride Level 96mEq/L (97-108) Carbon Dioxide Level 20mmol/L (18-29) Blood Urea Nitrogen 21mg/dL (6-20) Creatinine 0.68mg/dL (0.57-1.00) Estimat Glomerular Filtration Rate 145mL/min (>59) Glucose Level 147mg/dL (60-99) Calcium Level 5.9mg/dL (8.5-10.1) Total Bilirubin 0.2mg/dL (0.0-1.2) Aspartate Amino Transf (AST/SGOT) 18U/L (0-50) Alanine Aminotransferase (ALT/SGPT) 19U/L (0-32) Alkaline Phosphatase 103U/L (25-150) Total Protein 3.2g/dL (6.4-8.4) Albumin 1.2g/dL (3.4-5.0) Discharge Medications Discharge Medications Adalimumab (Humira) 40 Mg/0.8 Ml Pen.ij.kit 40 MG SQ m3nxtap (Reported) Ascorbate Calcium (Vitamin C) 500 Mg Tablet 500 MG PO DAILY (Reported) Dicyclomine (Bentyl) 10 Mg Capsule 10 MG PO QID Prescribed by: LASHA PRATHER DO Fondaparinux Sodium (Arixtra) 5 Mg/0.4 Ml Syringe 5 MG SUBQ HS (Reported) Multivit with Calcium,Iron,Min (Therapeutic M) 1 Each Tablet 1 EACH PO DAILY ( Reported) Oxycodone (Roxicodone) 5 Mg Tablet 15 MG PO BID (Reported) Prednisone (PredniSONE) 10 Mg Tablet 20 MG PO QAM (Reported) As needed Lorazepam (Lorazepam) 1 Mg Tablet 1 MG PO TID PRN PRN For Anxiety (Reported) Promethazine (Promethazine) 12.5 Mg Tablet 6.25 MG PO Q6H PRN PRN For Nausea ( Reported) Followup Plan Disposition: Home Discharge Diet: Heart Healthy, Other (Continue tube feeds) Discharge Activity: No restrictions Patient Instructions Call Dr Valdez for appt within 7-10 days Time spent 40 min Daryl Aguilar MD Dec 30, 2016 15:03
== END 2016-12-09 17:00 | disposition home or self-care (01) | DRG 393 ==
LOC: SED 15:02 → PCC 18:42
PROVIDERS: ADMIT Hospitalist; ATTEND Hospitalist
PROC: 0DH67UZ Insertion of Feeding Device into Stomach, Via Natural or Artificial Opening (ICD-10-PCS; 2016-12-06)
PROC: 0D7B8ZZ Dilation of Ileum, Via Natural or Artificial Opening Endoscopic (ICD-10-PCS; principal; 2016-12-07 10:00)
DX: K94.13 Enterostomy malfunction (principal); E43 Unspecified severe protein-calorie malnutrition; K50.918 Crohn's disease, unspecified, with other complication; E87.2 Acidosis; E87.1 Hypo-osmolality and hyponatremia; E27.40 Unspecified adrenocortical insufficiency; Z68.1 Body mass index [BMI] 19.9 or less, adult; I82.722 Chronic embolism and thrombosis of deep veins of left upper extremity; R65.10 Systemic inflammatory response syndrome (SIRS) of non-infectious origin without acute organ dysfunction; Z79.52 Long term (current) use of systemic steroids; T38.0X5A Adverse effect of glucocorticoids and synthetic analogues, initial encounter; G89.4 Chronic pain syndrome

== ENCOUNTER 2016-12-18 14:52 | Inpatient (IN) | payer MEDICARE ==
[~2016-12-18] VITALS: Ht 165.1 cm; Wt 41.4 kg
[~2016-12-18 14:52] MED LIST changes: +ADAL40PE SQ; -ADAL40PE2 SQ; -FUR20 PO; -FURO-129 PO; +MULT-140 PO; -OXYC15TA45 PO; -[UNRECOGNIZED DRUG - CODE] SQ; +[UNRECOGNIZED DRUG - CODE] SUBQ
[2016-12-18 14:54] VITALS: BP 100/74; PULSE 125; RESP 16; O2SAT 95
--- NOTE | 2016-12-18 15:06 | ED.REPORT ---
HPI-Abd Pain F Under 40 Date of Service Dec 18, 2016 ED Provider: Vahid García MD A 31 year old female with a history of Crohn's disease presents to the ED complaining of dehydration and abdominal pain onset today described as stabbing and burning like a twisting knife that does radiate. Associated symptoms include nausea, chills, and difficulty keeping food down. The patient was recently discharged from the hospital 2 days ago after receiving treatment for exacerbated Crohn's disease. She had a feeding tube in place that she took out on the same day. Per mom, the patient has been eating and drinking Pedialyte. She seemed fine yesterday, but was nauseated this morning. The mom has been telling her to take a sip of Pedialyte every 10 minutes and the patient has eaten half a piece of toast today. She denies any fever, sweats, or hematochezia. The patient is still on steroids but has not taken any medications today. Per mom, the patient's leg edema is now better than it was before. The patient reports that taking Dilaudid has been successful in the past. Nursing Notes Stated Complaint: DEHYDRATION,CROHNS FLARE Chief Complaint: Female Abdominal Pain Nursing Notes Reviewed: Yes ([place], [employer] not reconciled) Allergies: Coded Allergies: Iodinated Contrast Media - Oral and (Verified Allergy, Severe, Shortness of Breath,full body rash/redness, 12/18/16) Scheduled Adalimumab (Humira) 40 Mg/0.8 Ml Pen.ij.kit 40 MG SQ u2hosms Ascorbate Calcium (Vitamin C) 500 Mg Tablet 500 MG PO DAILY Dicyclomine (Bentyl) 10 Mg Capsule 10 MG PO QID Fondaparinux Sodium (Arixtra) 5 Mg/0.4 Ml Syringe 5 MG SUBQ HS Multivit with Calcium,Iron,Min (Therapeutic M) 1 Each Tablet 1 EACH PO DAILY Oxycodone (Roxicodone) 5 Mg Tablet 15 MG PO BID Prednisone (PredniSONE) 10 Mg Tablet 20 MG PO QAM Scheduled PRN Lorazepam (Lorazepam) 1 Mg Tablet 1 MG PO TID PRN PRN For Anxiety Promethazine (Promethazine) 12.5 Mg Tablet 6.25 MG PO Q6H PRN PRN For Nausea General Time Seen by MD: 15:00 Chief Complaint Other (Dehydration.) Hx Obtained From: Patient Arrived By: Walk-in Sudden in Onset?: Yes Onset Occurred: 9 - 12 hours ago Symptom Duration: Since onset Recent Healthcare: Recent doctor visit (Recently hospitalized for Crohn's exacerbation.) Similar Sx Previous: No Past Medical History Past Medical History Notes: GI Dr. Valdez Multiple recent hospitalizations, most recent 12/05/16 November 06-2016 with recurrent stomal stenosis, acute exacerbation of Crohn's, suspected adrenal insufficiency and hypovolemic shock Past Medical History Crohn's Disease Anxiety Heart murmur PE Past Surgical History Total proctocolectomy with end ileostomy Endoscopy in December 05 with ileostomy under fluoroscopy with balloon dilation of her recurrent stomal stenosis Family History Noncontributory Smoking History Never Smoker Social History Lives in [place], she is here visiting her mother Alcohol Use: Denies alcohol use Drug Use: Denies drug use Other Social History: Good social support, , Lives with children, Visiting locally Ambulatory Status Independent Review of Systems Review of Systems Note: Dehydration. Difficulty keeping food down. Constitutional: Reports: Chills Respiratory: Denies: Non-productive cough GI: Reports: Abdominal pain, Nausea Complete sys rev & neg: except as marked. Physical Exam Initial Vital Signs Vital Signs (First) Date Time Temp Pulse Resp B/P Pulse Ox O2 Delivery O2 Flow Rate FiO2 12/18/16 14:54 36.6 125 16 100/74 95 Room Air Initial VS: Reviewed, Vital signs abnormal General/Constitutional: Awake, Alert Patient is cachectic and under weight. She has catherine faces from prednisone. She appears dehydrated. Patient is fatigued and chronically ill. Cardiovascular: No murmurs Heart Rate / Rhythm: Positive: Tachycardia 2-3 plus pitting edema in lower extremities which is slightly worse than when she was seen last, but is better than when she left the hospital. Abdomen: Non-tender Patient has abdominal pain, but is non-tender. Interpretation & Diagnostics Lab Results Interpretation Result Diagram: 12/18/16 1630 12/18/16 1630 Test 12/18/16 16:30 White Blood Count 3.9th/mm3 (3.8-10.1) Red Blood Count 4.24mil/mm3 (3.90-5.20) Hemoglobin 9.9g/dL (12.0-15.6) Hematocrit 32.5% (35.0-46.0) Mean Corpuscular Volume 76.7fL (81-100) Mean Corpuscular Hemoglobin 23.3pg (27.0-35.0) Mean Corpuscular Hemoglobin Concent 30.5% (32.0-37.0) Red Cell Distribution Width 17.5% (12.3-15.4) Platelet Count 247bil/L (150-400) Neutrophils (%) (Auto) 60.1% (40-74) Lymphocytes (%) (Auto) 25.7% (14-46) Monocytes (%) (Auto) 13.6% (4-12) Eosinophils (%) (Auto) 0% (0-5) Basophils (%) (Auto) 0.3% (0-3) Erythrocyte Sedimentation Rate 10mm/hr (0-32) Sodium Level 129mEq/L (134-144) Potassium Level 4.8mEq/L (3.5-5.2) Chloride Level 93mEq/L (97-108) Carbon Dioxide Level 27mmol/L (18-29) Blood Urea Nitrogen 24mg/dL (6-20) Creatinine 0.59mg/dL (0.57-1.00) Estimat Glomerular Filtration Rate 170mL/min (>59) Glucose Level 89mg/dL (60-99) Lactic Acid Level 1.5mmol/L (0.4-2.0) Calcium Level 6.7mg/dL (8.5-10.1) Total Bilirubin 0.2mg/dL (0.0-1.2) Aspartate Amino Transf (AST/SGOT) 17U/L (0-50) Alanine Aminotransferase (ALT/SGPT) 19U/L (0-32) Alkaline Phosphatase 105U/L (25-150) Total Protein 4.4g/dL (6.4-8.4) Albumin 1.2g/dL (3.4-5.0) Lab Results Interpretation: CBC mild anemia CMP trace hyponatremia Severe hypocalcemia Re-Eval/Medical Decision Med Decision/Clinical Course This is a 31-year-old female with severe chronic Crohn's disease had a colectomy and subsequent ileostomy is had problems with severe malnutrition and is steroid dependent with subsequent cushingoid features who was recently admitted, required dilation of an ileostomy site stenosis, reports that she pulled the NG tube that she was to receive chloric nutrition through on the day she was discharged, but has been trying to eat and drink-but today developed severe abdominal pain nausea vomiting and so was brought back in. She told me she had poor intake, mother states she has actually been eating and drinking fairly well, has a history given the GI as well. Fevers or chills. Patient's medically frail 31-year-old female who weighs only 40 kg. she appears dehydrated. Her belly is cachectic, and not particularly tender-but she reports she has been having good ileostomy output. Labs were obtained and notable for hypocalcemia and calcium replacement administered. Given the patient's medical complex E GI was consulted resolved patient with department, given she is on chronic steroids, complaint disproportionate pain requested CT imaging to evaluate for the possibility of occult perforation. However the patient's Severe allergies to IV and oral contrast of the imaging was obtained without contrast, and is being read as a "slow obstruction" after GI discussed the imaging with the radiologist. Radiologist is also recommended ultrasound imaging the gallbladder. GI will follow, but recommends supportive measures at this time. They request a surgical consultation to follow, but have low suspicion given ongoing ileostomy output that surgical intervention it would be warranted for this obstruction. Patient's being admitted to the hospitalist. An ultrasound is also being obtained at the request of the radiologist, but clinically I do not appreciate overt findings of cholecystitis.. Source of Hx: Old records Consultation #1: Referral / Consult Name: Vj Brownlee MD Note: Has seen patient in the emergency department, recommend CT imaging to evaluate for perforation Consultation #2: Referral / Consult Name: Vj Brownlee MD Call Returned at: 18:55 Note: Has reviewed radiologist's initial interpretation, discussed CT imaging with radiology. Recommend supportive measurement, but notes the radiologist is calling us low-grade obstruction and requests that surgery follow. Consultation #3: Referral / Consult Name: Juwan Red MD Consulted With: Hospitalist Call Returned at: 18:58 Dividend Deposit Voucher Clerk: Accepts admit Consultation #4: Referral / Consult Name: Juwan Peres MD Dividend Deposit Voucher Clerk: Will see patient Note: GI GI consultation's request for surgical consultation do to radiology interpretation of bowel obstruction relayed Differential Diagnosis: Positive: Acute abdominal pain, Bowel obstruction, Negative: Ectopic , Myocardial infarction, Pelvic inflam disease, Peptic ulcer disease, Peritonitis, Postop complication Discharge & Departure Primary Impression: Nausea & vomiting Vomiting type: unspecified Vomiting Intractability: unspecified Qualified Code: R11.2 - Nausea with vomiting, unspecified Additional Impressions: Abdominal pain Abdominal location: lower abdomen Qualified Code: R10.30 - Lower abdominal pain, unspecified Crohn's disease Gastrointestinal tract location: unspecified location Digestive disease complication type: unspecified complication Qualified Code: K50.919 - Crohn' s disease, unspecified, with unspecified complications Hypocalcemia Hyponatremia Malnutrition Dehydration Bowel obstruction Intestinal obstruction type: unspecified Qualified Code: K56.60 - Unspecified intestinal obstruction Disposition: ADMITTED TO HOSPITAL Discharge Condition All VS Reviewed: Yes Condition: Improved Referrals: Elissa Arteaga DO (PCP) Taiwo Attestation Portions of this note were transcribed by Kenton Bustamante. I, Dr. García personally performed the history, physical exam and medical decision-making; I reviewed and confirmed the accuracy of the information in the transcribed note. Signed by: Taiwo Edouard, 12/18/2016 0055. copies to: Elissa Arteaga Matthew F MD Dec 18, 2016 15:06 Kenton Bustamante Dec 18, 2016 15:11
[2016-12-18] MEDS ORDERED: 0.9% Sodium Chloride 1,000 ML IV ONE (15:10)
[2016-12-18] MEDS ORDERED: Ondansetron 2 mg/mL 2 mL Inj IVPUSH ONE (15:15)
[2016-12-18 16:45] LABS: BASOPHILS % (AUTO) 0.3 % (0-3); EOSINOPHILS % (AUTO) 0 % (0-5); MONOCYTES % (AUTO) 13.6 % (4-12); Mean Corpuscular Hemoglobin 23.3 pg (27.0-35.0); Mean Corpuscular Volume 76.7 fL (81-100); NEUTROPHILS % (AUTO) 60.1 % (40-74); Platelet Count 247 bil/L (150-400)
[2016-12-18] MEDS: HYDROmorphone 0.5 mg/0.5 mL iSecure Syringe IVPUSH PRN ×3 (16:48→20:09)
[2016-12-18 17:06] LABS: ERYTHROCYTE SEDIMENTATION RATE 10 mm/hr (0-32)
[2016-12-18] MEDS ORDERED: CALCIUM GLUCO IV ONE (17:55)
[2016-12-18] MEDS ORDERED: DEXTROSE 5% IV ONE (17:55)
--- NOTE | 2016-12-18 18:06 | DRSVH ---
PROCEDURE: CT ABDOMEN AND PELVIS WITHOUT CONTRAST ([id number]) INDICATIONS: abd pain ro perforation TECHNIQUE: Noncontrast 5 mm thick sections acquired from the diaphragms to the symphysis. 5 mm coronal and sagi ttal reformats were then performed. For radiation dose reduction, the following was used: automated exposure control, adjustment of mA and/or kV according to patient size. COMPARISON: None. FINDINGS: Image quality: Excellent. ABDOMEN: Lung bases: Lung bases are clear. Heart size is normal. Solid organs: Liver and spleen are normal in size. Gallbladder shows small areas of increased densi ty consistent with small stones but there also small areas of markedly decreased density of Hounsfiel d units -130. Small particles of air cannot be excluded.. Pancreas is normal in contours. No adrena l nodules. Kidneys are normal in size, without hydronephrosis or nephrolithiasis. Peritoneum and bowel: Stomach and small bowels are grossly within normal limits. Colon is markedly di stended with fluid down into the distal sigmoid and rectal area suggesting a distal colonic obstructi on with a competent ileocecal valve. Nodes and vessels: No retroperitoneal or mesenteric adenopathy by size criteria. Aorta and inferior vena cava are normal in caliber. Miscellaneous: No ventral hernias. PELVIS: Genitourinary: Bladder wall thickness is normal. Miscellaneous: No inguinal hernias or adenopathy. Bones: No suspicious bony lesions. No vertebral body compression fractures. IMPRESSION: 1. Free air is not identified. 2. Markedly distended colon suggesting distal colonic obstruction. Rectal tube may be of benefit. 3. Question of low-density stones versus particles of air in the gallbladder. Ultrasound is suggested . Dictated by: Esteban Cabrera M.D. on 12/18/2016 at 17:54 Dr. García is aware of these findings Approved by: Esteban Cabrera M.D. on 12/18/2016 at 18:04
[2016-12-18] MEDS ORDERED: PRE10 PO (18:36)
[2016-12-18 19:35] VITALS: BP 133/57; PULSE 90; RESP 16; O2SAT 94
--- NOTE | 2016-12-18 19:38 | PCM.CHPMED ---
Subjective Date of Service: Dec 18, 2016 Provider requesting consult: Vahid García MD Primary Physician: Admitting Physician: Juwan Red MD Primary Care Physician: Elissa Arteaga DO Attending Physician: Vj Brownlee MD Chief Complaint: Chief Complaint: REASON FOR GI CONSULT: Established GI patient with complex GI history that is the underlying etiology of current symptoms History of Present Illness: GASTROENTEROLOGY CONSULTATION NOTE Ms. Terra Beauchamp is an extremely pleasant 31 year old woman that recently moved to the [facility] from the [facility] with a complex history of Crohn 's disease s/p total proctocolectomy with end ileostomy performed at [facility] in [place], [place]. She is on chronic glucocorticoids with Humira therapy, multiple prior obstructions/near obstructions near ostomy, recurrent flares, and recent left UE DVT secondary to PICC placement for TPN, who presented to the ED 12/18/2016 with acute on chronic diffuse abdominal pain, vomiting, and nausea. Reason for consult: Established GI patient with complex GI history that is the underlying etiology of current symptoms and recurrent admissions Patient states that she was doing well and in good spirits since her previous DC 12/09/2016. Woke up 12/18 with severe abdominal pain, nausea, and vomiting. States mild abdominal pain initiated at approx 1700 12/17, and persisted throughout the night and with dinner. Attempted to eat toast for breakfast, and was unable to tolerate. Has not tolerated po throughout day. Reports dinner the previous night as martiniquais food and pizza, states this was much more than her usual intake. She was discharged earlier this month with Dobhoff and tube feeds to improve her poor nutritional status. States she removed Dobhoff the day of previous DC, and admits to noncompliance. Mother and patient state that she was eating well until day of ED visit. Denies any sick contacts, fever, chills. Admits to increase in bilateral pedal edema and discomfort. Reports dizziness and weakness. States she has changed her ostomy bag twice day of ED visit, and is currently wearing her third, with liquid green output. 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 section Low grade TETO status post colposcopy Home Medications No list available; patient reports - Prednisone 20mg daily - Roxicodone - Percocet - Humira, last dose 12/12 - Fondaparinux Previous hospitalization DC 12/09/2016 indicates instruction for prednisone taper: 10mg/day over the next week, then to drop down to 5mg/d in about 7 more days, then 5mg every other day for a wk then stop. Medication reconciliation will need to be completed. DC Summary from 12/09 with medication list not available at time of consultation. Allergies: Coded Allergies: Iodinated Contrast Media - Oral and (Verified Allergy, Severe, Shortness of Breath,full body rash/redness, 12/18/16) Family History Family History She has no family history of Crohn's or UC Mother has celiac disease Grandfather was diagnosed with colon cancer at age 62 Social History Hx Alcohol Use: NoHx Substance Use: NoHx Tobacco Use: No Smoking Status: Never Smoker Exam Vital Signs Vital Sign - Last Date Time Temp Pulse Resp B/P Pulse Ox O2 Delivery O2 Flow Rate FiO2 12/18/16 14:54 36.6 125 16 100/74 95 Room Air General: Alert, Oriented X3, Cooperative, Mild Distress Head: Facial Expression & Appearance (symmetric) Nose: Mucous Membr Moist/[place] Mouth: Mucous Membr Moist/[place] Chest & Lungs: Auscultation (clear bilaterally), No adventitious breath sounds Cardiovascular: Regular Rate/Rhythm, Murmur (soft systolic ) Pulses: Radial (equal and bilateral) Abdomen: Tender (diffuse), Non-distended, Ostomy (RLQ; liquid green output; surrounding areas free of erythema) Extremities: Warm, Edema (Bilateral moderate pitting at ankles) Neurological: Cranial Nerves 2-12 Intact, Normal Speech (without slur) Additional Information: Psych: Appropriate mood, affect, and responses to questioning; seems depressed. Poor insight and judgment based on history of noncompliance Lab and Diagnostics Result Diagram: 12/18/16 1630 12/18/16 1630 Assessment & Plan Assessment GASTROENTEROLOGY CONSULTATION NOTE Ms. Terra Beauchamp is an extremely pleasant 31 year old woman that recently moved to the [facility] from the [facility] with a complex history of Crohn 's disease s/p total proctocolectomy with end ileostomy performed at [facility] in [place], [place]. She is on chronic glucocorticoids with Humira therapy, multiple prior obstructions/near obstructions near ostomy, recurrent flares, and recent left UE DVT secondary to PICC placement for TPN, who presented to the ED 12/18/2016 with acute on chronic diffuse abdominal pain, vomiting, and nausea. Reason for consult: Established GI patient with complex GI history that is the underlying etiology of current symptoms and recurrent admissions CT A/P wo/contrast 12/18: No free air; low density stones vs free air in gallbladder; dilated loops small bowel likely related to chronic low-grade obstruction. 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 Today, she emptied her back twice and the stomal bag is pretty full of dark greenish pasty liquid fecal material. She says she is passing gas. Yesterday she says she emptied her bag more because she was eating more. Therefore unlikely to have clinically significant stenosis. - Crohn's disease - treated with Humira and steroids. - Adrenal insufficiency secondary to chronic steroid use. May need stress dose steroids. - DVT secondary to PICC placement - Severe protein/calorie malnutrition, BMI 15 - CT showing chronic low-grade obstruction. However clinically she is passing gas and passing fecal material. - Abdominal pain - CT scan also showing lots of fluids in her small bowel. In the significant amount of food and liquids that she took in throughout the day yesterday and it may be causing her some problems. She is has no free air however question gallbladder issue. Plan - Await results of abd US - Recommend general surgery consultation for CT, and possibly US findings; discussed recommendation with radiology - Will re-evaluate replacing Dobhoff in am - Will need nutritional consultation - Will see in am if admitted Patient has history of noncompliance, and removed Dobhoff the day of previous discharge while she was on her way home. Dobhoff was also removed while she was going home after the admission prior to that. Nutrition is essential for her, as she likely requires a complete revision, but her nutritional status is too poor to promote adequate healing. Previous discussions have included SNF. She is not a PEG candidate, as it would likely be more detrimental than beneficial especially because of the low albumin. Tube feeds were anticipated to last at least three months. The initial read of the CT scan will be amended to reflect the bowel findings. Addendum includes note that findings are indicative of chronic low-grade obstruction. The abnormalities noted within her gallbladder are being further investigated with US. CT was deemed necessary in a patient complaining of 10/10 abdominal pain with history of chronic steroid use and Humira, these medication can hide spontaneous bowel perforation from Crohn's. Ischemia is also under differential and surgical service again involved. The risks of repeated CT exposure was discussed with patient and mother, and they agreed to proceed. Patient reports that she changed the ostomy bag twice prior to coming into the ED, and she is wearing her third bag for the day. Chart review indicates that weight at previous DC 12/09 was 42.4kg, and ED weight 12/18 was 40.91kg. . Thank you for this consultation. If patient is hospitalized, we will happily follow along. Total time: 60 minutes I have seen and examined the patient with the resident. Agree with above. Problems: Elissa Arteaga DO Dec 18, 2016 19:38 Vj Brownlee MD Dec 18, 2016 21:20
--- NOTE | 2016-12-18 19:52 | DRSVH ---
PROCEDURE: US ABDOMEN, LIMITED ([id number]) INDICATIONS: ro clif[place] TECHNIQUE: Real-time focused scanning was performed of the abdomen, with image documentation. COMPARISON: None. FINDINGS: Multiple stones are seen in the gallbladder. Echogenic pattern is not that of air. No wall thickening or tenderness is elicited over the gallbladder bed. No pericholecystic fluid is seen. Comm on bile duct is normal in size at 3.4 mm. IMPRESSION: Multiple stones in the gallbladder but no free air or changes to indicate acute cholecyst itis. Dictated by: Esteban Cabrera M.D. on 12/18/2016 at 19:49 Approved by: Esteban Cabrera M.D. on 12/18/2016 at 19:51
--- NOTE | 2016-12-18 20:26 | PCM.HPMED ---
Subjective Date of Service Dec 18, 2016 Primary Provider: Admitting Physician: Juwan Red MD Primary Care Physician: Elissa Arteaga DO Attending Physician: Vj Brownlee MD Chief Complaint: Abdominal pain. Poor oral intake . History of Present Illness: This is a A 31 year old female with a history of Crohn's disease , s/p total colectomy 10 years ago, s/p ileostomy who presents to the ED complaining of dehydration and abdominal pain. Pain as stabbing like and burning like locate mainly at her left flank and around her ileostomy bag area. Associated symptoms include nausea, chills, and difficulty keeping food down. She was discharged 2 days ago after receiving treatment for exacerbated Crohn's disease. She was sent home with a feeding tube in place that she took out on the same day. Mother at bedside endorses her story and stated she was unable to tolerate the discomfort of her NGT. She wasn`t been able to eat a lot but was drinking Pedialyte but not a lot, or at least not enough to maintain her nutritional need and adequate hydration . . . She denies any fever, sweats, or hematochezia. No chest pain, no shortness of breath. Patient is being re-admitted for severe malnutrition , dehydration and hypovolemia Review of Systems: Review of systems is pertinent for abdominal pain, nausea, otherwise complaints individual x 10 point is negative Allergies Coded Allergies: Iodinated Contrast Media - Oral and (Verified Allergy, Severe, Shortness of Breath,full body rash/redness, 12/18/16) Home Medications Adalimumab (Humira) 40 Mg/0.8 Ml Pen.ij.kit 40 MG SQ [id number] Ascorbate Calcium (Vitamin C) 500 Mg Tablet 500 MG PO DAILY Dicyclomine (Bentyl) 10 Mg Capsule 10 MG PO QID Fondaparinux Sodium (Arixtra) 5 Mg/0.4 Ml Syringe 5 MG SUBQ HS Multivit with Calcium,Iron,Min (Therapeutic M) 1 Each Tablet 1 EACH PO DAILY Oxycodone (Roxicodone) 5 Mg Tablet 15 MG PO BID Prednisone (PredniSONE) 10 Mg Tablet 20 MG PO QAM PMH Abdominal proctocolectomy with right upper quadrant ileostomy at [facility] October 2013 Recurrent stoma stenosis Severe protein calorie malnutrition DVT secondary to IV placement Crohn's disease Perirectal fistula after remicade w/ bacteremia resolved w/ bowel rest x 1 month /TPN Anxiety Iron deficiency anemia SBO Coagulation disorder Ileal pancolitis, 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 section Low grade TETO status post colposcopy Surgical History - Prednisone 20mg daily - Roxicodone - Percocet - Humira, last dose 12/12 - Fondaparinux Family History Mother has celiac disease Grandfather was diagnosed with colon cancer at age 62 Social History Hx Alcohol Use: No Hx Substance Use: No Hx Tobacco Use: No Smoking Status: Never Smoker Living Arrangement: with Family Exam Vital Signs Vital Sign - Last Date Time Temp Pulse Resp B/P Pulse Ox O2 Delivery O2 Flow Rate FiO2 12/18/16 19:35 90 16 133/57 94 Room Air 12/18/16 14:54 36.6 Exam Gen./constitutional : Objective female with cushingoid features . In bed comfortably HEENT : Sclerae is anicteric Mouth: Moist oral mucosa, no oral thrush Chest: Normal respiratory effort. Severe muscles atrophy. Lung: Clear bilaterally, no wheezing Heart: S1-S2 regular rate including no gallop no murmur Abdomen: Flat, non-tender, non-distended. Ileostomy bag in place Extremity: 2+ edema bilaterally, tenderness, no cyanosis Skin: No rash, normal sinus Neuro : Grossly nonfocal. Lab and Diagnostics Result Diagram: 12/18/16 1630 12/18/16 1630 X-Rays, CTs and MRIs Abdomen CT scan reviewed : 1. Free air is not identified. 2. Markedly distended colon suggesting distal colonic obstruction. Rectal tube may be of benefit. 3. Question of low-density stones versus particles of air in the gallbladder. Ultrasound is suggested. Assessment & Plan 1. SBO 2. Severe protein caloric Malnutrition 3. Crohn Disease Admit inpatient for suspected SBO. NPO . Start IVF D5NS 2 75 ml/hr. Gallbladder US shows no cholecystitis as suggested finding of CT scan Patient is severely malnourished with a BMI on 15 and albumin of 1.2 . I am concerned about her viability even in the short run. NGT has been tried to help her re-feeding but that wasn`t successful. Patient removed NGT the same day of discharge due to discomfort She may need a gastrostomy tube if GI agrees with that. Nutrition consulted . Calcium level is 6.8 but corrected calcium level is WNL. (8.8 approximately) Home medications . Further recommendation per GI and per clinical course . VTE Prophylaxis: SCDs, Other (On arixtra ) Resuscitation Status: CPR: Attempt Resuscitation Time spent 75 minutes Juwan Red MD Dec 18, 2016 20:26 Calcium level is 6.8 but corrected calcium level is WNL. (8.8 approximately) Home medications VTE Prophylaxis: SCDs, Other (On arixtra ) Resuscitation Status: CPR: Attempt Resuscitation Time spent 75 minutes Juwan Red MD Dec 18, 2016 20:26
[2016-12-18 20:32] VITALS: BP 133/57; PULSE 90; RESP 16; O2SAT 94
[2016-12-18 20:37] VITALS: BP 109/77; PULSE 82; RESP 16; O2SAT 100
--- NOTE | 2016-12-18 20:39 | DRSVH ---
PROCEDURE: X-RAY ACUTE ABDOMINAL SERIES ([id number]) INDICATIONS: ABDOMINAL PAIN, history of Crohn's disease, history of previous colon resection with il eostomy in the right lower quadrant. TECHNIQUE: One view chest and two views of the abdomen were acquired. COMPARISON: None. FINDINGS: Surgical changes and devices: None. Chest: Lungs are clear. Heart size is normal. No pleural effusions. No pneumoperitoneum. Abdomen: Bowel gas pattern is abnormal with prominent and mildly prominent small bowel loops No susp icious calcifications. Visualized solid organ contours appear normal. Bones: No suspicious bony lesions. IMPRESSION: Changes are consistent with partial or early small bowel obstruction. Dictated by: Esteban Cabrera M.D. on 12/18/2016 at 20:37 Approved by: Esteban Cabrera M.D. on 12/18/2016 at 20:38
[2016-12-18] MEDS: LORazepam 1 mg Tablet PO PRN (21:16)
[2016-12-18] MEDS: predniSONE 20 mg Tablet PO SCH (21:17)
[2016-12-18] MEDS: Dextrose 5% 0.9% NaCl 1,000 ML IV SCH (21:17)
[2016-12-19] VITALS (9 sets, daily range): BP systolic 98–119; BP diastolic 67–82; PULSE 73–109; RESP 16–18; O2SAT 98–100
[2016-12-19] MEDS ORDERED: HYDROmorphone 0.5 mg/0.5 mL iSecure Syringe IVPUSH PRN (00:55)
--- NOTE | 2016-12-19 02:46 | CONS ---
[address] [address] CONSULTATION REPORT PATIENT: MAE FELIZ : 1985 MR#: [id number] ADMIT: 12/18/2016 JOB ID: [id number] DATE OF SERVICE: 12/18/2016 CHIEF COMPLAINT/IDENTIFICATION: Dr. Brownlee of GI has asked for a General Surgery consultation on this 31-year-old woman with a history of Crohn's disease, being admitted for nausea and vomiting. HISTORY OF PRESENT ILLNESS: This 31-year-old woman is seen as she is being admitted to the hospital for abdominal pain and dehydration with a question of small bowel obstruction. She tells me that she had Crohn's colitis since she was age 18, and in 2013 underwent a laparoscopic total proctocolectomy with end ileostomy at the [facility] in [place], [place]. She tells me at the time that her doctors knew she had Crohn's disease of the colon, did not think she might have ulcerative colitis, gave her an end ileostomy and removed her rectum and anus, but told her that they had "gotten it all" and that she had no more disease. In September 2016, she moved to [place] with her mother and ended up being seen by our GI department. At that time, when she moved here she had been on chronic steroids and Humira, and she has been under such treatment since that time. I do not have any of her old medical records. Over the past three months, she has been seen at our hospital several times, both as an outpatient and as inpatient, always with some stomal output but difficulty taking p.o. She does have a longstanding history of intermittent malnutrition and has been on TPN in the past, complicated by deep vein thrombosis. The medical record says that she has a history of small bowel obstruction, but I believe she only reports the one surgery for her total proctocolectomy, other than a section in the distant past. She, most recently, was sent home with a Dobhoff feeding tube but did not tolerate this, both because of discomfort to the tube in her nose, but also because of abdominal pain and cramping. She has had three endoscopies with Dr. Valdez, all demonstrating distal small bowel stenosis, and as best as I can make out, apparent active inflammatory bowel disease, though I cannot find a pathology report in the electronic medical record. She is currently on Humira, currently with fairly good volume liquid stomal output, but unable to tolerate p.o. very well. PAST MEDICAL HISTORY: As above. She is felt to have a chronic hypercoagulable disorder and by history is on chronic fondaparinux. MEDICATIONS: 1. Prednisone 20 daily. 2. Humira, last dose December 12. 3. Roxicodone. 4. Percocet. 5. Fondaparinux. ALLERGIES: She tells me that she has had an allergy to INTRAVENOUS CONTRAST involving shortness of breath and bright red full body rash. I have been told that she has an allergy to ORAL CONTRAST, but she does not remember having any problems with oral contrast, and she does not have any allergies shellfish. SOCIAL HISTORY: Negative tobacco. Negative alcohol. FAMILY HISTORY: Noncontributory. REVIEW OF SYSTEMS: Per admission history and physical. PHYSICAL EXAMINATION: A pleasant young woman, along with her mother. Hernandez facies consistent with steroid use. BMI recorded at 13. She is exceptionally slender. Her abdomen is soft. Her ileostomy appears fine. I have not attempted to digitize it. Her abdomen is soft. Her scars are consistent with a history of a laparoscopic total abdominal colectomy. I have not looked at her backside to confirm that her anus has been removed, but I have no reason to doubt that. Her white count is 3.9, hematocrit is 32.5, platelet count is 247. Chemistries show chronic hyponatremia of 129, BUN is 24, creatinine is 0.59, calcium is 6.7, but her albumin is only 1.2. Liver function tests are normal. IMAGING: She had ab abdominal and pelvis CT scan without IV and without oral contrast, and I have reviewed the films, as well as the report. The report talks about distended colon, but what I believe she has is fairly massively dilated small bowel. She did have an abdominal ultrasound that demonstrated gallstones, but no findings of cholecystitis. I did obtain three views of the abdomen which demonstrate dilated small bowel and a picture consistent with a small bowel obstruction. I note that I have obtained an acute abdominal series so that we would have a baseline to follow with plain films rather than simply only having CT scans. She also had some imaging studies previously here, including small bowel follow-through with barium, and extensive x-rays in October that report a normal bowel gas pattern. IMPRESSION AND PLAN: A 31-year-old female with a complex past surgical history who has an x-ray picture and history consistent with a high-grade partial small bowel obstruction, known small bowel stenosis in her ileum and slightly distal to this that has responded only in the short term to dilation. She is currently malnourished. There are some aspects of her history that are somewhat confusing, and I believe they will be better illuminated if we can obtain her operative report from [facility], her discharge summary from [facility], and her pathology report from the [facility]. I have asked her mother to work on obtaining these. I think in the short term it makes sense to admit her for IV hydration. I do believe that she most likely either has Crohn's disease that has been refractory to medical management in terms of either fistulas or intestinal strictures (the latter would not be expected to respond to biologic therapy or prednisone), or it is possible that some of her obstruction problems are related to adhesive disease. Currently, she is in no nutritional shape to have an operation and I think that the next steps should be to obtain her old records, to identify a GI tract surgeon to take her on as a patient and then to decide on the appropriate studies ranging from upper endoscopy, to upper GI, to barium enema or endoscopy through her stoma. Given my position as a surgical hospitalist without an office practice, I do not think it will be fair for me to plan to operate on her, but I will discuss this with my partners and see if one of the surgeons here at [facility] is interested in participating in her care actively. Patient already does have an appointment later next month with district ranger at the [facility] and we discussed that there are a variety of facilities in the [facility] area and that if she wanted to go to a tertiary care facility we could facilitate that. No one from General Surgery will plan to see her tomorrow, but I will be back on Thursday and will see her then. If for some reason she has left the hospital, I will contact the patient and/or her mother.
[2016-12-19] MEDS: predniSONE 20 mg Tablet PO SCH (08:58)
[2016-12-19] MEDS: LORazepam 1 mg Tablet PO PRN ×2 (08:59→14:39)
[2016-12-19 09:01] LABS: BASOPHILS % (AUTO) 0.3 % (0-3); EOSINOPHILS % (AUTO) 0 % (0-5); MONOCYTES % (AUTO) 9.6 % (4-12); Mean Corpuscular Hemoglobin 23.4 pg (27.0-35.0); Mean Corpuscular Volume 77.7 fL (81-100); NEUTROPHILS % (AUTO) 64.8 % (40-74); Platelet Count 200 bil/L (150-400)
--- NOTE | 2016-12-19 09:40 | PCM.PNMED ---
Subjective Date of Service Dec 19, 2016 Subjective GASTROENTEROLOGY PROGRESS NOTE States resolution of nausea and vomiting with medication. Has been tolerating po well overnight. Continues to endorse diffuse abdominal pain, rated 6/10 now but ranges from 4 -6 /10 and that is her base line, but she states she feels improved compared to yesterday. States generalized weakness. Exam Vital Signs Vital Sign - Last Date Time Temp Pulse Resp B/P Pulse Ox O2 Delivery O2 Flow Rate FiO2 12/19/16 06:09 76 12/19/16 05:47 36.4 16 98/67 98 Room Air Intake and Output 12/18/16 12/18/16 12/19/16 Cumulative From/Thru 15:00 23:00 07:00 12/18/16 14:54 - 12/19/16 06:49 Intake Total 629 ml 629 ml Output Total 250 ml 250 ml Balance 379 ml 379 ml Intake Oral 100 ml 100 ml IV Total 529 ml 529 ml Output Urine Total 50 ml 50 ml Stool Total 200 ml 200 ml Exam General: Alert, Oriented X3, Cooperative, No acute distress Head: Facial Expression & Appearance (symmetric) Nose: Mucous Membr Moist/[place] Mouth: Mucous Membr Moist/[place] Chest & Lungs: Auscultation (clear bilaterally), No adventitious breath sounds Cardiovascular: Regular Rate/Rhythm, Murmur (soft systolic) Pulses: Radial (equal and bilateral) Abdomen: Tender (diffuse, improved), Non-distended, Ostomy (RLQ; liquid green output; surrounding areas free of erythema). - By the time I ( Dr Brownlee) examined her, abdominal tenderness was minimal. Extremities: Warm, Edema (Bilateral mild pitting at ankles) Skin: Warm and dry Neurological: Cranial Nerves 2-12 Intact, Normal Speech (without slur) Psych: Appropriate mood, affect, and responses to questioning; seems depressed. Poor insight and judgment based on history of noncompliance Lab and Diagnostics Result Diagram: 12/19/16 0830 12/18/16 2100 X-Rays, CTs and MRIs Abdomen CT scan reviewed : 1. Free air is not identified. 2. Markedly distended colon suggesting distal colonic obstruction. Rectal tube may be of benefit. 3. Question of low-density stones versus particles of air in the gallbladder. Ultrasound is suggested. Assessment & Plan GASTROENTEROLOGY PROGRESS NOTE Ms. Terra Beauchamp is an extremely pleasant 31 year old woman [facility] with a complex history of Crohn 's disease s/p total proctocolectomy with end ileostomy performed at [facility] in [place], [place]. She is on chronic glucocorticoids with Humira therapy, multiple prior obstructions/near obstructions near ostomy, recurrent flares, and recent left UE DVT secondary to PICC placement for TPN, who presented to the ED 12/18/2016 with acute on chronic diffuse abdominal pain, vomiting, and nausea. Reason for consult: Established GI patient with complex GI history that is the underlying etiology of current symptoms and recurrent admissions CT A/P wo/contrast 12/18: No free air; low density stones vs free air in gallbladder; dilated loops small bowel likely related to chronic low-grade obstruction. 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 Today, she emptied her back twice and the stomal bag is pretty full of dark greenish pasty liquid fecal material. She says she is passing gas. Yesterday she says she emptied her bag more because she was eating more. Therefore unlikely to have clinically significant stenosis. On bedside, we took the stomal bag off and examined the stoma. There was narrowing but fecal material was coming out rapidly.The site appeared narrowed and again I could not get my finger into the stoma but fecal material was coming out very well. Since there is no clear obstruction, would avoid dilation until nutritional status improves. She is passing gas as well. - Crohn's disease - treated with Humira and steroids. - Adrenal insufficiency secondary to chronic steroid use. May need stress dose steroids. - LUE DVT secondary to PICC placement - Severe protein/calorie malnutrition, BMI 15 - CT showing chronic low-grade obstruction. However clinically she is passing gas and passing fecal material. - Abdominal pain - CT scan also showing lots of fluids in her small bowel. In the significant amount of food and liquids that she took in throughout the day yesterday and it may be causing her some problems. She is has no free air however question gallbladder issue. Plan - Change ostomy bag and monitor output throughout day - Remind patient and mother to provide [facility] records to [facility]/GI - If output adequate and no SBO seen, - Replace Dobhoff - Needs to keep Dobhoff in place at DC - Dietary recommendations continue with previous advice - Avoidance high fiber/large vegetables - Avoid over-eating: Frequent high-quality smaller meals recommended - Dobhoff needs to remain in place to provide continuous nutrition. We understand that her po intake was reported as 'good,' but intake is just as important as quality - Nutrition recovery is essential for any chance at recovery and to optimize healing if any stomal revision is completed in future - Recommend PT evaluation - Agree with possibility of doing psych consult/eval for threat to harm self with history of noncompliance - Actions of repeated self-discontinuation of Dobhoff - Will not improve, and may prematurely end her life if she refuses/cannot get the nutrition she needs - Current pain likely secondary to large meals: recommend small, frequent meals - If output is adequate, Dobhoff replaced and tolerate feeding, patient can DC in am to home to continue her care Patient has history of noncompliance, and removed Dobhoff the day of previous discharge while she was on her way home. Dobhoff was also removed while she was going home after the admission prior to that. Nutrition is essential for her, as she likely requires a complete revision, but her nutritional status is too poor to promote adequate healing. Previous discussions have included SNF. She is not a PEG candidate, as it would likely be more detrimental than beneficial especially because of the poor nutritional status indicated by low albumin. This is have significant impact on wound healing. Tube feeds were anticipated to last at least three months. . Thank you for this consultation. OK to DC 12/20 if remains medically stable, I have seen and examined the patient with the resident. Agree with above. Total time: 60 minutes VTE Prophylaxis: SCDs, Other (On arixtra ) Resuscitation Status: CPR: Attempt Resuscitation Elissa Arteaga DO Dec 19, 2016 09:40 Vj Brownlee MD Dec 20, 2016 10:09 Elissa Arteaga DO Dec 19, 2016 09:40
[2016-12-19] MEDS: HYDROmorphone 1 mg/mL Inj IVPUSH PRN ×4 (11:51→22:28)
--- NOTE | 2016-12-19 14:29 | PCM.PNMED ---
Subjective Date of Service Dec 19, 2016 Subjective Terra Beauchamp is an 31 year old woman that recently moved to the [facility] from the [facility] with a complex history of Crohn's disease s/p total proctocolectomy with end ileostomy performed at [facility] in [place], [place]. She is on chronic glucocorticoids with Humira therapy, multiple prior obstructions/near obstructions near ostomy, recurrent flares, and recent left UE DVT secondary to PICC placement for TPN, who presented to the ED 2016 with acute on chronic diffuse abdominal pain, vomiting, and nausea. Hospital day #2 Overnight: Patient was tachycardic on ambulation into the 150s. Today: The patient states she feels a bit better. She is still quite fatigued and nauseous. She denies any abdominal pain. The remainder of the ROS is negative except as noted above. Exam Vital Signs Vital Sign - Last Date Time Temp Pulse Resp B/P Pulse Ox O2 Delivery O2 Flow Rate FiO2 12/19/16 14:13 36.4 97 16 117/79 100 Room Air Intake and Output 12/18/16 12/18/16 12/19/16 Cumulative From/Thru 15:00 23:00 07:00 12/18/16 14:54 - 12/19/16 06:49 Intake Total 629 ml 629 ml Output Total 250 ml 250 ml Balance 379 ml 379 ml Intake Oral 100 ml 100 ml IV Total 529 ml 529 ml Output Urine Total 50 ml 50 ml Stool Total 200 ml 200 ml Exam General: Alert, Oriented X3, Cooperative, Mild Distress Head: Facial Expression & Appearance (symmetric) Nose: Mucous Membr Moist/[place] Mouth: Mucous Membr Moist/[place] Chest & Lungs: Auscultation (clear bilaterally), No adventitious breath sounds Cardiovascular: Tachycardic, regular rhythm. Pulses: Radial (equal and bilateral) Abdomen: Tender (diffuse), Non-distended, Ostomy (RLQ; surrounding areas free of erythema) Extremities: Warm, Edema (Bilateral moderate pitting at ankles) Neurological: Cranial Nerves 2-12 Intact, Normal Speech (without slur) Psych: Appropriate mood, affect, and responses to questioning; seems depressed. Poor insight and judgment based on history of noncompliance IVs and Medications Medications Reviewed: Medications were reviewed in detail Lab and Diagnostics Result Diagram: 12/19/16 0830 12/19/16 0830 X-Rays, CTs and MRIs CT ABDOMEN AND PELVIS WITHOUT CONTRAST IMPRESSION: 1. Free air is not identified. 2. Markedly distended colon suggesting distal colonic obstruction. Rectal tube may be of benefit. 3. Question of low-density stones versus particles of air in the gallbladder. Ultrasound is suggested. ADDENDUM: Additional information is that the patient has had a colectomy. The distended loops therefore must be small bowel. In addition there is an ileostomy rather an ileal loop into the right lower quadrant. In the operative from this is reportedly fairly good. This would indicate that C. dilated small bowel loops are related to a chronic low-grade obstruction or a relatively acute high-grade obstruction. No wall thickening or air in the tsai of the dilated loops is seen. Since the patient does not have obstructive symptoms clinically this is likely to be a distended loops from chronic partial low grade obstruction of a small bowel loop. Dictated by: Esteban Cabrera M.D. on 12/18/2016 at 18:44 US ABDOMEN, LIMITED IMPRESSION: Multiple stones in the gallbladder but no free air or changes to indicate acute cholecystitis. Dictated by: Esteban Cabrera M.D. on 12/18/2016 at 19:49 X-RAY ACUTE ABDOMINAL SERIES IMPRESSION: Changes are consistent with partial or early small bowel obstruction. Dictated by: Esteban Cabrera M.D. on 12/18/2016 at 20:37 Assessment & Plan Terra Beauchamp is an 31 year old woman that recently moved to the [facility] from [facility] with a complex history of Crohn's disease s/p total proctocolectomy with end ileostomy performed at [facility] in [place], [place]. She is on chronic glucocorticoids with Humira therapy, multiple prior obstructions/near obstructions near ostomy, recurrent flares, and recent left UE DVT secondary to PICC placement for TPN, who presented to the ED 2016 with acute on chronic diffuse abdominal pain, vomiting, and nausea. Hospital day #2 1. Abdominal pain in the setting of Crohn's disease s/p total proctocolectomy with RLQ ileostomy, acute, present on admission -Patient has a complex course of disease with poor response to treatment -She has a history of noncompliance due to discomfort -The likely etiology of her abdominal pain is multifactorial -Upon the most recent abdominal imaging there is evidence of developing small bowel obstruction. 2. Early or partial small bowel obstruction, acute, present on admission -Bowel rest -Continue IVF -Surgery consulted and following. Appreciate Dr. Peres's input. 3. Recurrent ileostomy stoma stenosis s/p dilation. - Appears to be resolved 4.Crohn's disease, present on admission -Requesting records from [facility] to be brought in by the patient's mother. -Continue Humira and prednisone -The patient needs to follow up with as her case is quite complex and she will likely require multiple surgeries. 5. Severe protein/calorie malnutrition, BMI 15, present on admission - Patient not a PEG tube candidate - She has previously been noncompliant with Dobhoff due to discomfort - As patient is likely developing SBO no NGT for now per GI - Customer Trainer consultation - Dietary recommendations per GI: Avoidance high fiber/large vegetables. Avoid over-eating: Frequent high-quality smaller meals recommended 6. Hypervolemic hyponatremia, chronic, present on admission -Likely due to ostomy output being greater than her intake -Continue NS -Monitor 7. Hypochromic microcytic anemia, likely iron deficiency, chronic, present on admission -Due to poor oral intake and poor nutritional status -Consider iron supplementation as outpatient DVT secondary to PICC placement, chronic, present on admission -Not anticoagulated Dispo: Anticipate patient will stay for another several days while she is hydrated and her SBO resolves. VTE Prophylaxis: SCDs, Other (On arixtra ) Resuscitation Status: CPR: Attempt Resuscitation Attending Statement The patient was seen and examined together with Dr. Recio on 12/19 and I agree with the history, exam and plan as outlined in the note above. Purnima Recio DO Dec 19, 2016 14:29 Seth Hinojosa MD Dec 19, 2016 17:59 VTE Prophylaxis: SCDs, Other (On arixtra ) Resuscitation Status: CPR: Attempt Resuscitation Purnima Recio DO Dec 19, 2016 14:29 obstruction. The abnormalities noted within her gallbladder are being further investigated with US. CT was deemed necessary in a patient complaining of 10/10 abdominal pain with history of chronic steroid use and Humira, these medication can hide spontaneous bowel perforation from Crohn's. Ischemia is also under differential and surgical service again involved. The risks of repeated CT exposure was discussed with patient and mother, and they agreed to proceed. Patient reports that she changed the ostomy bag twice prior to coming into the ED, and she is wearing her third bag for the day. Chart review indicates that weight at previous DC 12/09 was 42.4kg, and ED weight 12/18 was 40.91kg. . Thank you for this consultation. If patient is hospitalized, we will happily follow along. Total time: 60 minutes VTE Prophylaxis: SCDs, Other (On arixtra ) Resuscitation Status: CPR: Attempt Resuscitation Purnima Recio DO Dec 19, 2016 14:29
[2016-12-19] MEDS: Dextrose 5% 0.9% NaCl 1,000 ML IV SCH (15:30)
[2016-12-20] VITALS (8 sets, daily range): BP systolic 101–124; BP diastolic 71–86; PULSE 86–131; RESP 16; O2SAT 98–100
[2016-12-20 05:34] LABS: BASOPHILS % (AUTO) 0.3 % (0-3); EOSINOPHILS % (AUTO) 1.6 % (0-5); MONOCYTES % (AUTO) 11.2 % (4-12); Mean Corpuscular Hemoglobin 23.7 pg (27.0-35.0); Mean Corpuscular Volume 75.3 fL (81-100); NEUTROPHILS % (AUTO) 43.8 % (40-74)
[2016-12-20] MEDS: HYDROmorphone 1 mg/mL Inj IVPUSH PRN ×4 (05:38→17:25)
[2016-12-20 05:55] LABS: Platelet Count 74 bil/L (150-400)
[2016-12-20] MEDS: predniSONE 20 mg Tablet PO SCH (08:58)
[2016-12-20] MEDS: Dextrose 5% 0.9% NaCl 1,000 ML IV SCH (09:44)
[2016-12-20] MEDS ORDERED: 0.9% Sodium Chloride 500 ML IV ONE (11:20)
--- NOTE | 2016-12-20 12:44 | PCM.PNMED ---
Subjective Date of Service Dec 20, 2016 Subjective Continues to be mildly tachycardic at rest overnight. Patient reports she still has a dull abd pain centrally. She has been able to tolerate her breakfast without any n/v. She reports feeling lightheaded with exertion still. She reports that she removed her Dobhoff previously due to severe anxiety with the tube in. She is very anxious about her medical well- being and has anxiety attacks frequently. She understands that she is malnutritious and the Dobhoff is needed, and she indeed would like to pursue treatment for her problems, but her anxiety has been difficult to deal with. Exam Vital Signs Vital Sign - Last Date Time Temp Pulse Resp B/P Pulse Ox O2 Delivery O2 Flow Rate FiO2 12/20/16 10:23 112 12/20/16 09:28 37.0 16 101/71 98 Room Air Intake and Output 12/19/16 12/19/16 12/20/16 Cumulative From/Thru 15:00 23:00 07:00 12/18/16 14:54 - 12/20/16 04:59 Intake Total 1200 ml 850 ml 2679 ml Output Total 970 ml 550 ml 1770 ml Balance 230 ml 300 ml 909 ml Intake Oral 1200 ml 850 ml 2150 ml IV Total 529 ml Output Urine Total 470 ml 250 ml 770 ml Stool Total 500 ml 300 ml 1000 ml Exam General: Thin cachectic Female who is Alert, Oriented X3, Cooperative, in NAD HEENT: PERRLA, Enlarged bright red tongue, dry oral mucosa. Symmetrically edematous cheeks Chest & Lungs: CTAB, no wheezing, normal resp effort Cardiovascular: Tachycardic, regular rhythm, no murmurs noted Pulses: Weak radial pulses bilaterally Abdomen: Tender (diffuse), Non-distended, Ostomy in place (RLQ; surrounding areas free of erythema, Ostomy full of liquid green stool) Extremities: Cool, Severe bilateral pitting edema from feet up to both knees. Neurological: Grossly intact, no focal weakness Psych: Flat affect, linear and congruent thoughts and speech. IVs and Medications Medications Reviewed: Medications were reviewed in detail Lab and Diagnostics Result Diagram: 12/20/16 0512/20/16 0525 X-Rays, CTs and MRIs CT ABDOMEN AND PELVIS WITHOUT CONTRAST IMPRESSION: 1. Free air is not identified. 2. Markedly distended colon suggesting distal colonic obstruction. Rectal tube may be of benefit. 3. Question of low-density stones versus particles of air in the gallbladder. Ultrasound is suggested. ADDENDUM: Additional information is that the patient has had a colectomy. The distended loops therefore must be small bowel. In addition there is an ileostomy rather an ileal loop into the right lower quadrant. In the operative from this is reportedly fairly good. This would indicate that C. dilated small bowel loops are related to a chronic low-grade obstruction or a relatively acute high-grade obstruction. No wall thickening or air in the tsai of the dilated loops is seen. Since the patient does not have obstructive symptoms clinically this is likely to be a distended loops from chronic partial low grade obstruction of a small bowel loop. Dictated by: Esteban Cabrera M.D. on 12/18/2016 at 18:44 US ABDOMEN, LIMITED IMPRESSION: Multiple stones in the gallbladder but no free air or changes to indicate acute cholecystitis. Dictated by: Esteban Cabrera M.D. on 12/18/2016 at 19:49 X-RAY ACUTE ABDOMINAL SERIES IMPRESSION: Changes are consistent with partial or early small bowel obstruction. Dictated by: Esteban Cabrera M.D. on 12/18/2016 at 20:37 Assessment & Plan Terra Beauchamp is an 31 year old woman that recently moved to the [facility] from [facility] with a complex history of Crohn's disease s/p total proctocolectomy with end ileostomy performed at [facility] in [place], [place]. She is on chronic glucocorticoids with Humira therapy, multiple prior obstructions/near obstructions near ostomy, recurrent flares, and recent left UE DVT secondary to PICC placement for TPN, who presented to the ED 2016 with acute on chronic diffuse abdominal pain, vomiting, and nausea. Hospital day #3 1. Abdominal pain in the setting of Crohn's disease s/p total proctocolectomy with RLQ ileostomy, acute, present on admission -Patient has a complex course of disease with poor response to treatment -She has a history of noncompliance due to discomfort and anxiety -The likely etiology of her abdominal pain is multifactorial -Most recent abdominal imaging shows evidence of developing small bowel obstruction. 2. Early or partial small bowel obstruction, acute, present on admission -Was placed on Bowel rest -Continue IVF -Surgery consulted and following. Appreciate Dr. Peres's input. -Able to tolerate small breakfast this morning without nausea, although did have some mild abd pain. -Continue to monitor and encourage small meals as tolerated. 3. Recurrent ileostomy stoma stenosis s/p dilation. - Appears to be resolved 4.Crohn's disease, present on admission -Requesting records from [facility] to be brought in by the patient's mother. -Continue Humira and prednisone -The patient needs to follow up with as her case is quite complex and she will likely require multiple surgeries. 5. Severe protein/calorie malnutrition, BMI 15, present on admission - Patient not a PEG tube candidate per GI. - She has previously been noncompliant with Dobhoff due to discomfort and anxiety. - As patient is likely developing SBO no NGT for now per GI, will educate patient on importance of Dobhoff for nutrition management and attempt placement tomorrow if tolerating PO. - Data Acquisition Technician consultation - Dietary recommendations per GI: Avoidance high fiber/large vegetables. Avoid over-eating: Frequent high-quality smaller meals recommended 6. Hypovolemic hyponatremia, chronic, present on admission -Likely due to high output ostomy -Has been more tachycardic and orthostatic today. Given 500mL Bolus of NS, will continue with D5NS at 60mls/hr. -Continue to monitor orthostatics. EKG performed today due to her tachycardia was reassuring, no ST changes or T wave peak. 7. Hypochromic microcytic anemia, likely iron deficiency, chronic, present on admission -Due to poor oral intake and poor nutritional status -Consider iron supplementation as outpatient 8. Anxiety and Depression, POA Patient's anxiety and depression makes treatment with the Dobhoff difficult. Will continue to career guidance counselor patient and plan to initiate Klonopin 1mg BID and Fluoxetine 10mg daily, with plan to titrate up. DVT secondary to PICC placement, chronic, present on admission -Fondaparinux 5mg SC HS Pain Evaluation: Adequate Pain Control VTE Prophylaxis: SCDs, Other (On arixtra ) Resuscitation Status: CPR: Attempt Resuscitation Time spent 25 minutes Attending Statement I have seen and evaluated patient at bedside in addition to directly supervising care provided by resident physician. I agree with above documentation. Javi Diane DO Dec 20, 2016 12:30 Cr Mays DO Dec 21, 2016 07:17
--- NOTE | 2016-12-20 12:50 | PCM.PNMED ---
Subjective Date of Service Dec 20, 2016 Subjective No events overnight. Patient tolerated breakfast. Ostomy output increasing. Yesterday, she said she emptied her back 3 times. This morning it is almost full. Exam Vital Signs Vital Sign - Last Date Time Temp Pulse Resp B/P Pulse Ox O2 Delivery O2 Flow Rate FiO2 12/20/16 10:23 112 12/20/16 09:28 37.0 16 101/71 98 Room Air Intake and Output 12/19/16 12/19/16 12/20/16 Cumulative From/Thru 15:00 23:00 07:00 12/18/16 14:54 - 12/20/16 04:59 Intake Total 1200 ml 850 ml 2679 ml Output Total 970 ml 550 ml 1770 ml Balance 230 ml 300 ml 909 ml Intake Oral 1200 ml 850 ml 2150 ml IV Total 529 ml Output Urine Total 470 ml 250 ml 770 ml Stool Total 500 ml 300 ml 1000 ml Exam Head and neck no icterus Lungs clear Cardiovascular regular rate and rhythm, normal S1-S2 tachycardia. Abdomen soft minimal tenderness no guarding rebound tenderness nondistended normoactive bowel sounds Extremities no pitting edema ankles Skin shows no jaundice Lab and Diagnostics Result Diagram: 12/20/16 0525 12/20/16 0525 X-Rays, CTs and MRIs CT ABDOMEN AND PELVIS WITHOUT CONTRAST IMPRESSION: 1. Free air is not identified. 2. Markedly distended colon suggesting distal colonic obstruction. Rectal tube may be of benefit. 3. Question of low-density stones versus particles of air in the gallbladder. Ultrasound is suggested. ADDENDUM: Additional information is that the patient has had a colectomy. The distended loops therefore must be small bowel. In addition there is an ileostomy rather an ileal loop into the right lower quadrant. In the operative from this is reportedly fairly good. This would indicate that C. dilated small bowel loops are related to a chronic low-grade obstruction or a relatively acute high-grade obstruction. No wall thickening or air in the tsai of the dilated loops is seen. Since the patient does not have obstructive symptoms clinically this is likely to be a distended loops from chronic partial low grade obstruction of a small bowel loop. Dictated by: Esteban Cabrera M.D. on 12/18/2016 at 18:44 US ABDOMEN, LIMITED IMPRESSION: Multiple stones in the gallbladder but no free air or changes to indicate acute cholecystitis. Dictated by: Esteban Cabrera M.D. on 12/18/2016 at 19:49 X-RAY ACUTE ABDOMINAL SERIES IMPRESSION: Changes are consistent with partial or early small bowel obstruction. Dictated by: Esteban Cabrera M.D. on 12/18/2016 at 20:37 Assessment & Plan Ms. Terra Beauchamp is an extremely pleasant 31 year old woman that recently moved to the [facility] from the [facility] with a complex history of Crohn 's disease s/p total proctocolectomy with end ileostomy performed at [facility] in [place], [place]. She is on chronic glucocorticoids with Humira therapy, multiple prior obstructions/near obstructions near ostomy, recurrent flares, and recent left UE DVT secondary to PICC placement for TPN, who presented to the ED 12/18/2016 with acute on chronic diffuse abdominal pain, vomiting, and nausea. Reason for consult: Established GI patient with complex GI history that is the underlying etiology of current symptoms and recurrent admissions CT A/P wo/contrast 12/18: No free air; low density stones vs free air in gallbladder; dilated loops small bowel likely related to chronic low-grade obstruction. 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 Yesterday, she emptied her bag 3 times and this morning her back is almost full with loose liquid brown stools. She says she is passing gas. Therefore unlikely to have clinically significant stenosis or obstruction. - Crohn's disease - treated with Humira and steroids. - Adrenal insufficiency secondary to chronic steroid use. May need stress dose steroids. - LUE DVT secondary to PICC placement - Severe protein/calorie malnutrition, BMI 15 Plan - Change ostomy bag and monitor output throughout day - Remind patient and mother to provide [facility] records to [facility]/GI - We will deployed Dobbhoff tube today and start feeding per dietary recommendations to make sure she has enough calories. - Dietary recommendations continue with previous advice - Avoidance high fiber/large vegetables - Avoid over-eating: Frequent high-quality smaller meals recommended - Dobhoff needs to remain in place to provide continuous nutrition. We understand that her po intake was reported as 'good,' but intake is just as important as quality - Nutrition recovery is essential for any chance at recovery and to optimize healing if any stomal revision is completed in future - Recommend PT evaluation - Agree with possibility of doing psych consult/eval for threat to harm self with history of noncompliance. I spent sometimes discussed this issue with the patient of noncompliance which in turn would have detrimental effect to her health and well-being. - Actions of repeated self-discontinuation of Dobhoff - Will not improve, and may prematurely end her life if she refuses/cannot get the nutrition she needs - Abdominal pain is now baseline despite having breakfast this morning. - She can follow-up as outpatient with Dr. Jon. Follow-up within one week after discharge. VTE Prophylaxis: SCDs, Other (On arixtra ) Resuscitation Status: CPR: Attempt Resuscitation Vj Brownlee MD Dec 20, 2016 12:50
--- NOTE | 2016-12-20 16:35 | PROG NOTE ---
[address] [address] PROGRESS NOTE PATIENT: MAE FELIZ : 1985 MR#: [id number] ADMIT: 12/18/2016 JOB ID: [id number] DATE: 12/20/2016 SUBJECTIVE: The patient is seen today. Reviewed with Dr. Brownlee of GI. She is tolerating breakfast, ostomy output is increasing. She feels well. LABORATORY DATA: Show a hematocrit of 31. Electrolytes still show hyponatremia of 128 and a potassium of 5.9. BUN of 21 and a creatinine of 0.57. IMPRESSION AND PLAN: I discussed with Dr. Brownlee. He feels that she would be better served by attempting nutritional repletion via the enteral route, either p.o. or via Dobbhoff feeding tube. I understand the risk of TPN and the preferred efficacy of enteral feeding, but I think that the likelihood of her success through enteral nutrition is outweighed by its down side and I would recommend going with TPN right off the bat and setting her up for home TPN. Ultimately, the patient's regular GI doctor and surgeon will need to decide on their approach. Dr. Alvarez will be taking over her surgical care on Thursday and so at this point, as long as she remains in the hospital over the weekend, there is no reason to move ahead with deciding with TPN or p.o. as long as she is not vomiting. I will repeat plain films as an objective evaluation of whether not her obstructive pattern is improving.
[2016-12-20] MEDS: LORazepam 1 mg Tablet PO PRN (17:24)
[2016-12-20] MEDS: Ondansetron 2 mg/mL 2 mL Inj IVPUSH PRN (18:33)
--- NOTE | 2016-12-20 20:49 | DRSVH ---
PROCEDURE: X-RAY ACUTE ABDOMINAL SERIES ([id number]) INDICATIONS: follow up small bowel obstruction TECHNIQUE: One view chest and two views of the abdomen were acquired. COMPARISON: [facility], CR, XR ABD ACUTE SERIES 3VW, 12/18/2016, 20:04. FINDINGS: Surgical changes and devices: None. Chest: Lungs are clear. Heart size is normal. No pleural effusions. No pneumoperitoneum. Abdomen: Dilated loop of small bowel noted in the midabdomen. Scattered air-fluid level are noted s everal which a differential height. Dilated loops of bowel have increased in diameter compared to pr ior examination. Possible right lower quadrant ostomy noted. No suspicious calcifications. Visuali zed solid organ contours appear normal. Bones: No suspicious bony lesions. IMPRESSION: Findings compatible with small bowel obstruction. Dilated loops of small bowel have inc reased slightly in diameter compared to prior examination. Dictated by: Keeley Bethea MD, PhD on 12/20/2016 at 20:46 Approved by: Keeley Bethea MD, PhD on 12/20/2016 at 20:48
[2016-12-21] VITALS (11 sets, daily range): BP systolic 79–106; BP diastolic 55–75; PULSE 114–170; RESP 12–16; O2SAT 95–99
[2016-12-21] MEDS: Ondansetron 2 mg/mL 2 mL Inj IVPUSH PRN ×6 (02:41→23:25)
[2016-12-21] MEDS: HYDROmorphone 1 mg/mL Inj IVPUSH PRN ×6 (02:42→21:50)
[2016-12-21] MEDS: Dextrose 5% 0.9% NaCl 1,000 ML IV SCH (03:00)
[2016-12-21 05:36] LABS: Mean Corpuscular Hemoglobin 23.2 pg (27.0-35.0); Mean Corpuscular Volume 76.3 fL (81-100); Platelet Count 157 bil/L (150-400)
[2016-12-21 06:03] LABS: BASOPHILS % (AUTO) 0.4 % (0-3); EOSINOPHILS % (AUTO) 0 % (0-5); MONOCYTES % (AUTO) 11.3 % (4-12); NEUTROPHILS % (AUTO) 53.7 % (40-74)
[2016-12-21] MEDS: LORazepam 1 mg Tablet PO PRN ×2 (07:46→14:27)
--- NOTE | 2016-12-21 09:45 | PCM.PNMED ---
Subjective Date of Service Dec 21, 2016 Subjective I found her sleeping this morning. He feels uncomfortable this morning. She describes her abdominal pain is 7 out of 10. Exam Vital Signs Vital Sign - Last Date Time Temp Pulse Resp B/P Pulse Ox O2 Delivery O2 Flow Rate FiO2 12/21/16 06:07 36.8 118 16 106/72 99 Room Air Intake and Output 12/20/16 12/20/16 12/21/16 Cumulative From/Thru 15:00 23:00 07:00 12/18/16 14:54 - 12/21/16 06:35 Intake Total 2717 ml 738 ml 6134 ml Output Total 1850 ml 3620 ml Balance 867 ml 738 ml 2514 ml Intake Oral 1000 ml 3150 ml IV Total 1717 ml 738 ml 2984 ml Output Urine Total 350 ml 1120 ml Stool Total 1500 ml 2500 ml Exam Patient is alert oriented comfortable Head and neck no icterus Lungs clear Cardia vascular regular rate rhythm S1-S2 Abdomen soft tenderness? (When I was pushing her abdomen, the facial expression was not consistent with tenderness however when I asked her if she was tender, she said it was) no guarding rebound or firmness nondistended normoactive bowel sounds Skin shows no jaundice Lab and Diagnostics Result Diagram: 12/21/16 04312/21/16 0436 X-Rays, CTs and MRIs CT ABDOMEN AND PELVIS WITHOUT CONTRAST IMPRESSION: 1. Free air is not identified. 2. Markedly distended colon suggesting distal colonic obstruction. Rectal tube may be of benefit. 3. Question of low-density stones versus particles of air in the gallbladder. Ultrasound is suggested. ADDENDUM: Additional information is that the patient has had a colectomy. The distended loops therefore must be small bowel. In addition there is an ileostomy rather an ileal loop into the right lower quadrant. In the operative from this is reportedly fairly good. This would indicate that C. dilated small bowel loops are related to a chronic low-grade obstruction or a relatively acute high-grade obstruction. No wall thickening or air in the tsai of the dilated loops is seen. Since the patient does not have obstructive symptoms clinically this is likely to be a distended loops from chronic partial low grade obstruction of a small bowel loop. Dictated by: Esteban Cabrera M.D. on 12/18/2016 at 18:44 US ABDOMEN, LIMITED IMPRESSION: Multiple stones in the gallbladder but no free air or changes to indicate acute cholecystitis. Dictated by: Esteban Cabrera M.D. on 12/18/2016 at 19:49 X-RAY ACUTE ABDOMINAL SERIES IMPRESSION: Changes are consistent with partial or early small bowel obstruction. Dictated by: Esteban Cabrera M.D. on 12/18/2016 at 20:37 Assessment & Plan Terra Beauchamp is an 31 year old woman that recently moved to the [facility] from the [facility] with a complex history of Crohn's disease s/p total proctocolectomy with end ileostomy performed at [facility] in [place], [place]. She is on chronic glucocorticoids with Humira therapy, multiple prior obstructions/near obstructions near ostomy, recurrent flares, and recent left UE DVT secondary to PICC placement for TPN, who presented to the ED 2016 with acute on chronic diffuse abdominal pain, vomiting, and nausea. This morning she is complaining of some pain. She said she emptied her ostomy bag 5 times yesterday. At 5:00 in the morning, she emptied it again. Right now the ostomy looks half full. Therefore this does not appear to be an obstructive issue. However there could be loops of bowel that is not moving its content and he output we are seeing is fecal material bypassing the intestines and moving through through the fistula. This may explain why imagings looks like this and she have good ostomy output. I think she will need surgery sooner than later. However nutritional status is an issue. Dobbhoff feeding tube will be better under the circumstances in my opinion however I can see why TPN is being considered by the surgeons. Concerned about an infection with TPN. Infection in this lady could be a significant issue due to poor proteins nutrition use of prednisone and use of Humira. We will have Dr. Jon and Dr. Alvarez [place] about this and determine either to do TPN or Dobbhoff. Until then, I will hold off deployment of Dobbhoff tube and try to minimize oral intake. For Crohn's, continue Humira and try to titrate prednisone to off if possible. . VTE Prophylaxis: SCDs, Other (On arixtra ) Resuscitation Status: CPR: Attempt Resuscitation Vj Brownlee MD Dec 21, 2016 09:45
[2016-12-21] MEDS: predniSONE 20 mg Tablet PO SCH (10:31)
[2016-12-21] MEDS ORDERED: 0.9% Sodium Chloride 500 ML IV ONE ×2 (11:20→23:00)
--- NOTE | 2016-12-21 11:33 | PCM.PNMED ---
Subjective Date of Service Dec 21, 2016 Subjective Pt essentially stable. Still experiencing significant abdominal pain, but this is in adequate control with PRN medications. Anxiety has improved some with addition of Klonopin and Prozac yesterday. Denies side effects. No other acute complaints. Appetite remains very low, able to tolerate sips of juice, water, and ate a little yogurt, but she still is finding too much PO intake causes her to become nauseated. Exam Vital Signs Vital Sign - Last Date Time Temp Pulse Resp B/P Pulse Ox O2 Delivery O2 Flow Rate FiO2 12/21/16 10:02 170 12/21/16 09:45 36.9 16 102/72 98 Room Air Intake and Output 12/20/16 12/20/16 12/21/16 Cumulative From/Thru 15:00 23:00 07:00 12/18/16 14:54 - 12/21/16 06:35 Intake Total 2717 ml 738 ml 6134 ml Output Total 1850 ml 3620 ml Balance 867 ml 738 ml 2514 ml Intake Oral 1000 ml 3150 ml IV Total 1717 ml 738 ml 2984 ml Output Urine Total 350 ml 1120 ml Stool Total 1500 ml 2500 ml General: Alert, Oriented X3, Cooperative, Mild Distress, Other (severely malnurished/thin) Head: Other ((+)Enlarged paratids glands B/L. ) Mouth: Mucous Membranes Dry Chest & Lungs: Clear to auscultation & percussion Cardiovascular: Other (tachycardic with a regular rhythm. ) Abdomen: Tender, Non-distended, Ostomy Extremities: No cyanosis/clubbing/edma bilat Neurological: Grossly Neurologically Intact IVs and Medications Medications Reviewed: Medications were reviewed in detail Lab and Diagnostics Result Diagram: 12/21/1643512/21/16 043 X-Rays, CTs and MRIs CT ABDOMEN AND PELVIS WITHOUT CONTRAST IMPRESSION: 1. Free air is not identified. 2. Markedly distended colon suggesting distal colonic obstruction. Rectal tube may be of benefit. 3. Question of low-density stones versus particles of air in the gallbladder. Ultrasound is suggested. ADDENDUM: Additional information is that the patient has had a colectomy. The distended loops therefore must be small bowel. In addition there is an ileostomy rather an ileal loop into the right lower quadrant. In the operative from this is reportedly fairly good. This would indicate that C. dilated small bowel loops are related to a chronic low-grade obstruction or a relatively acute high-grade obstruction. No wall thickening or air in the tsai of the dilated loops is seen. Since the patient does not have obstructive symptoms clinically this is likely to be a distended loops from chronic partial low grade obstruction of a small bowel loop. Dictated by: Esteban Cabrera M.D. on 12/18/2016 at 18:44 US ABDOMEN, LIMITED IMPRESSION: Multiple stones in the gallbladder but no free air or changes to indicate acute cholecystitis. Dictated by: Esteban Cabrera M.D. on 12/18/2016 at 19:49 X-RAY ACUTE ABDOMINAL SERIES IMPRESSION: Changes are consistent with partial or early small bowel obstruction. Dictated by: Esteban Cabrera M.D. on 12/18/2016 at 20:37 Assessment & Plan Terra Beauchamp is an 31 year old woman that recently moved to the [facility] from [facility] with a complex history of Crohn's disease s/p total proctocolectomy with end ileostomy performed at [facility] in [place], [place]. She is on chronic glucocorticoids with Humira therapy, multiple prior obstructions/near obstructions near ostomy, recurrent flares, and recent left UE DVT secondary to PICC placement for TPN, who presented to the ED 2016 with acute on chronic diffuse abdominal pain, vomiting, and nausea. Hospital day #3 1. Abdominal pain in the setting of Crohn's disease s/p total proctocolectomy with RLQ ileostomy, acute, present on admission 2. Early or partial small bowel obstruction, acute, present on admission -Patient has a complex course of disease with poor response to treatment -She has a history of noncompliance due to discomfort and anxiety -The likely etiology of her abdominal pain is multifactorial -Most recent abdominal imaging shows evidence of developing small bowel obstruction but ostomy output is not entirely consistent with this DX - Cut diet back to clear liquids for today, and NPO after mid-night. - GI consulted will continue to follow -Continue IVF -Surgery consulted and following. Appreciate Dr. Peres's input. 3. Recurrent ileostomy stoma stenosis s/p dilation. - Appears to be resolved 4.Crohn's disease, present on admission -Requesting records from [facility] to be brought in by the patient's mother. -Continue Humira and prednisone -The patient needs to follow up with as her case is quite complex and she will continue to require expert consultation. 5. Severe protein/calorie malnutrition, BMI 15, present on admission - Patient not a PEG tube candidate per GI but surgical manager believe this would be preferable option. - She has previously been noncompliant with Dobhoff due to discomfort and anxiety. - Will review cause tomorrow with pt's outpatient GI who will be in-house (Dr. Valdez) and surgery to come to final decision of TPN feeding vs. retrial of enteral feeding with Doubhof. 6. Hypovolemic hyponatremia, chronic, present on admission -Likely due to high output ostomy -Has been more tachycardic and orthostatic today. Given 500mL Bolus of NS, will increase IVFs to 125ml / hr. -Continue to monitor orthostatics. EKG performed today due to her tachycardia was reassuring, no ST changes or T wave peak. 7. Hypochromic microcytic anemia, likely iron deficiency, chronic, present on admission -Due to poor oral intake and poor nutritional status -Consider iron supplementation as outpatient 8. Anxiety and Depression, POA Patient's anxiety and depression are related to disease condition but creating significant morbidity none the less. Will continue Klonopin 1mg BID and Fluoxetine 10mg daily, with plan to titrate up. Pain Evaluation: Adequate Pain Control VTE Prophylaxis: SCDs, Other (On arixtra ) Resuscitation Status: CPR: Attempt Resuscitation Time spent 35 minutes Cr Mays DO Dec 21, 2016 11:33
[2016-12-21] MEDS: 0.9% Sodium Chloride 1,000 ML IV SCH ×2 (12:04→19:27)
--- NOTE | 2016-12-21 15:53 | PROG NOTE ---
[address] [address] PROGRESS NOTE PATIENT: MAE FELIZ : 1985 MR#: [id number] ADMIT: 12/18/2016 JOB ID: [id number] DATE: 12/21/2016 She remains afebrile, with stable vital signs, pulse slightly over 100. Ileostomy output has picked up. Hematocrit is demonstrating some element of hemoconcentration of 34.8. Electrolytes are essentially unchanged. Her albumin is 1.2. I did obtain a plain film that demonstrates dilated small bowel, slightly more so than the other day. IMPRESSION AND PLAN: I discussed her case with Dr. Browlnee. My feeling is that she should have her p.o. intake restricted, we should give her full nutritional support by TPN, and that the goal should be to get her into nutritional shape for an operation. 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 We discussed this case and are going to defer to Dr. Valdez and Dr. Alvarez, who will be following the patient over the medical terminologist.
[2016-12-22] VITALS (12 sets, daily range): BP systolic 77–108; BP diastolic 54–77; PULSE 98–152; RESP 12–16; O2SAT 96–100
[2016-12-22] MEDS: HYDROmorphone 1 mg/mL Inj IVPUSH PRN ×7 (00:48→21:38)
[2016-12-22] MEDS ORDERED: 0.9% Sodium Chloride 1,000 ML IV ONE (01:05)
[2016-12-22 02:24] LABS: Magnesium 1.6 mg/dL (1.6-2.6)
[2016-12-22] MEDS: Ondansetron 2 mg/mL 2 mL Inj IVPUSH PRN ×2 (03:54→14:45)
[2016-12-22 05:30] LABS: BASOPHILS % (AUTO) 1.3 % (0-3); EOSINOPHILS % (AUTO) 0.3 % (0-5); MONOCYTES % (AUTO) 9.9 % (4-12); Mean Corpuscular Hemoglobin 23.5 pg (27.0-35.0); Mean Corpuscular Volume 75.3 fL (81-100); NEUTROPHILS % (AUTO) 60.4 % (40-74); Platelet Count 91 bil/L (150-400)
[2016-12-22 05:56] LABS: Magnesium 1.6 mg/dL (1.6-2.6)
[2016-12-22] MEDS: 0.9% Sodium Chloride 1,000 ML IV SCH ×2 (07:45→21:37)
[2016-12-22] MEDS: predniSONE 20 mg Tablet PO SCH (07:46)
--- NOTE | 2016-12-22 09:49 | PCM.PNMED ---
Subjective Date of Service Dec 22, 2016 Subjective Overnight, continues to be mildly hypotensive in supine positioning. Was given 1.5L of NS bolus yesterday This morning. she reports she still having intermittent nausea with meals, although improved with Zofran. Discussed with her option for tube feeding or TPN and she would prefer TPN going forward due to anxiety reaction and discomfort of the Dobhoff. Mood and anxiety improved with Klonopin and FLuoxetine. Still very lightheaded with exertion, although mildly improved since admission. Exam Vital Signs Vital Sign - Last Date Time Temp Pulse Resp B/P Pulse Ox O2 Delivery O2 Flow Rate FiO2 12/22/16 02:44 104/68 12/22/16 01:36 36.6 101 12 100 Room Air Intake and Output 12/21/16 12/21/16 12/22/16 Cumulative From/Thru 15:00 23:00 07:00 12/18/16 14:54 - 12/22/16 06:44 Intake Total 200 ml 2185 ml 2537 ml 77259 ml Output Total 1150 ml 2000 ml 350 ml 7120 ml Balance -950 ml 185 ml 2187 ml 3936 ml Intake Oral 200 ml 1000 ml 4350 ml IV Total 1185 ml 2537 ml 6706 ml Output Urine Total 150 ml 250 ml 1520 ml Stool Total 1000 ml 1750 ml 350 ml 5600 ml Exam General: Thin cachectic Female who is Alert, Oriented X3, Cooperative, in NAD HEENT: PERRLA, Enlarged bright red tongue, dry oral mucosa. Symmetrically edematous cheeks Chest & Lungs: CTAB, no wheezing, normal resp effort Cardiovascular: Tachycardic, regular rhythm, no murmurs noted Pulses: Weak radial pulses bilaterally Abdomen: Tender (diffuse), Non-distended, Ostomy in place (RLQ; surrounding areas free of erythema) Extremities: Cool, Severe bilateral pitting edema from feet up to both knees. Neurological: Grossly intact, no focal weakness Psych: Appropriate mood and affect IVs and Medications Medications Reviewed: Medications were reviewed in detail Lab and Diagnostics Result Diagram: 12/22/1651712/22/16517 X-Rays, CTs and MRIs CT ABDOMEN AND PELVIS WITHOUT CONTRAST IMPRESSION: 1. Free air is not identified. 2. Markedly distended colon suggesting distal colonic obstruction. Rectal tube may be of benefit. 3. Question of low-density stones versus particles of air in the gallbladder. Ultrasound is suggested. ADDENDUM: Additional information is that the patient has had a colectomy. The distended loops therefore must be small bowel. In addition there is an ileostomy rather an ileal loop into the right lower quadrant. In the operative from this is reportedly fairly good. This would indicate that C. dilated small bowel loops are related to a chronic low-grade obstruction or a relatively acute high-grade obstruction. No wall thickening or air in the tsai of the dilated loops is seen. Since the patient does not have obstructive symptoms clinically this is likely to be a distended loops from chronic partial low grade obstruction of a small bowel loop. Dictated by: Esteban Cabrera M.D. on 12/18/2016 at 18:44 US ABDOMEN, LIMITED IMPRESSION: Multiple stones in the gallbladder but no free air or changes to indicate acute cholecystitis. Dictated by: Esteban Cabrera M.D. on 12/18/2016 at 19:49 X-RAY ACUTE ABDOMINAL SERIES IMPRESSION: Changes are consistent with partial or early small bowel obstruction. Dictated by: Esteban Cabrera M.D. on 12/18/2016 at 20:37 Assessment & Plan Terra Beauchamp is an 31 year old woman that recently moved to the [facility] from [facility] with a complex history of Crohn's disease s/p total proctocolectomy with end ileostomy performed at [facility] in [place], [place]. She is on chronic glucocorticoids with Humira therapy, multiple prior obstructions/near obstructions near ostomy, recurrent flares, and recent left UE DVT secondary to PICC placement for TPN, who presented to the ED 2016 with acute on chronic diffuse abdominal pain, vomiting, and nausea. Hospital day #5 1. Abdominal pain in the setting of Crohn's disease s/p total proctocolectomy with RLQ ileostomy, acute, present on admission -Associated with nausea and vomiting. Probably associated with strictures and obstruction also. -Continue to encourage small high quality meals. 2. Early or partial small bowel obstruction, acute, present on admission -Patient has a complex course of disease with poor response to treatment -She has a history of noncompliance due to discomfort and anxiety -The likely etiology of her abdominal pain is multifactorial -Most recent abdominal imaging shows evidence of developing small bowel obstruction but ostomy output is not entirely consistent with this DX - GI consulted will continue to follow, appreciate time and input. -Continue IVF while having poor PO intake -Surgery consulted and following. Appreciate time and input. 3. Recurrent ileostomy stoma stenosis s/p dilation. - Appears to be resolved, ostomy with high output 4.Crohn's disease, present on admission -Requesting records from [facility] to be brought in by the patient's mother. -Continue Humira and prednisone -The patient needs to follow up with as her case is quite complex and she will continue to require expert consultation. 5. Severe protein/calorie malnutrition, BMI 15, present on admission - Patient not a PEG tube candidate per GI but sr risk management consultant believe this would be preferable option. - She has previously been noncompliant with Dobhoff due to discomfort and anxiety. - Patient would prefer TPN, but will consult with GI and Surgery for final recommendation. She is now anticoagulated on Fondaparinux due to UE DVT in October after PICC line placement. She is to continue the Fondaparinux for 6 months. 6. Hypovolemic hyponatremia, chronic, present on admission -Likely due to high output ostomy -Has been more tachycardic and orthostatic today. Had 1.5L bolus of NS yesterday , will continue IV NS 100mls/hr -Continue to monitor orthostatics. EKG performed today due to her tachycardia was reassuring, no ST changes or T wave peak. 7. Hypochromic microcytic anemia, likely iron deficiency, chronic, present on admission -Due to poor oral intake and poor nutritional status -Consider iron supplementation as outpatient 8. Anxiety and Depression, POA Patient's anxiety and depression are related to disease condition but creating significant morbidity none the less. Will continue Klonopin 0.5mg BID and Fluoxetine 10mg daily, with plan to titrate Fluoxetine up. Dispo: If TPN is placed, then will likely require another day or two for observation of response. Still having moderate nausea and orthostasis Pain Evaluation: Adequate Pain Control VTE Prophylaxis: SCDs, Other (On arixtra ) Resuscitation Status: CPR: Attempt Resuscitation Time spent 25 minutes Attending Statement I have seen and evaluated patient at bedside in addition to directly supervising care provided by resident physician. I agree with above documentation. aJvi Diane DO Dec 22, 2016 06:54 Cr Mays DO Dec 22, 2016 14:21
[2016-12-22] MEDS: LORazepam 1 mg Tablet PO PRN (10:42)
--- NOTE | 2016-12-22 10:48 | PCM.PNMED ---
Subjective Date of Service Dec 22, 2016 Subjective GASTROENTEROLOGY PROGRESS NOTE States she feels much improved today compared to yesterday. States she is tolerating po intake well. Continues to endorse weakness, and generalized abdominal pain. Resting in bed comfortably. Denies SOB, chest pain, nausea, vomiting. Ostomy output continues, more formed compared to previous. Exam Vital Signs Vital Sign - Last Date Time Temp Pulse Resp B/P Pulse Ox O2 Delivery O2 Flow Rate FiO2 12/22/16 10:07 147 12/22/16 09:49 36.6 16 103/71 96 Room Air Intake and Output 12/21/16 12/21/16 12/22/16 Cumulative From/Thru 15:00 23:00 07:00 12/18/16 14:54 - 12/22/16 06:44 Intake Total 200 ml 2185 ml 2537 ml 43401 ml Output Total 1150 ml 2000 ml 350 ml 7120 ml Balance -950 ml 185 ml 2187 ml 3936 ml Intake Oral 200 ml 1000 ml 4350 ml IV Total 1185 ml 2537 ml 6706 ml Output Urine Total 150 ml 250 ml 1520 ml Stool Total 1000 ml 1750 ml 350 ml 5600 ml Exam General: Alert, Oriented X3, Cooperative, No acute distress Head: Facial Expression & Appearance (symmetric) Nose: Mucous Membr Moist/[place] Mouth: Mucous Membr Moist/[place] Chest & Lungs: Auscultation (clear bilaterally), No adventitious breath sounds Cardiovascular: Regular Rate/Rhythm, Murmur (soft systolic) Pulses: Radial (equal and bilateral) Abdomen: Tender (diffuse, improved), Non-distended, Ostomy (RLQ; liquid green output; surrounding areas free of erythema). - By the time I ( Dr Brownlee) examined her, abdominal tenderness was minimal. Extremities: Warm, Edema (Bilateral mild pitting at ankles) Skin: Warm and dry Neurological: Cranial Nerves 2-12 Intact, Normal Speech (without slur) Psych: Appropriate mood, affect, and responses to questioning; seems depressed. Poor insight and judgment based on history of noncompliance Lab and Diagnostics Result Diagram: 12/22/1651712/22/1618 X-Rays, CTs and MRIs CT ABDOMEN AND PELVIS WITHOUT CONTRAST IMPRESSION: 1. Free air is not identified. 2. Markedly distended colon suggesting distal colonic obstruction. Rectal tube may be of benefit. 3. Question of low-density stones versus particles of air in the gallbladder. Ultrasound is suggested. ADDENDUM: Additional information is that the patient has had a colectomy. The distended loops therefore must be small bowel. In addition there is an ileostomy rather an ileal loop into the right lower quadrant. In the operative from this is reportedly fairly good. This would indicate that C. dilated small bowel loops are related to a chronic low-grade obstruction or a relatively acute high-grade obstruction. No wall thickening or air in the tsai of the dilated loops is seen. Since the patient does not have obstructive symptoms clinically this is likely to be a distended loops from chronic partial low grade obstruction of a small bowel loop. Dictated by: Esteban Cabrera M.D. on 12/18/2016 at 18:44 US ABDOMEN, LIMITED IMPRESSION: Multiple stones in the gallbladder but no free air or changes to indicate acute cholecystitis. Dictated by: Esteban Cabrera M.D. on 12/18/2016 at 19:49 X-RAY ACUTE ABDOMINAL SERIES IMPRESSION: Changes are consistent with partial or early small bowel obstruction. Dictated by: Esteban Cabrera M.D. on 12/18/2016 at 20:37 Assessment & Plan GASTROENTEROLOGY PROGRESS NOTE Ms. Terra Beauchamp is an extremely pleasant 31 year old woman that recently moved to the [facility] from the [facility] with a complex history of Crohn 's disease s/p total proctocolectomy with end ileostomy performed at [facility] in [place], [place]. She is on chronic glucocorticoids with Humira therapy, multiple prior obstructions/near obstructions near ostomy, recurrent flares, and recent left UE DVT secondary to PICC placement for TPN, who presented to the ED 12/18/2016 with acute on chronic diffuse abdominal pain, vomiting, and nausea. Reason for consult: Established GI patient with complex GI history that is the underlying etiology of current symptoms and recurrent admissions CT A/P wo/contrast 12/18: No free air; low density stones vs free air in gallbladder; dilated loops small bowel likely related to chronic low-grade obstruction. Assessments - RLQ ileostomy s/p total proctocolectomy secondary to Crohn's disease - Recurrent ileostomy stoma stenosis s/p multiple dilations - Crohn's disease - treated with Humira and steroids. - Adrenal insufficiency secondary to chronic steroid use - LUE DVT secondary to PICC placement, on fondaparinux - Severe protein/calorie malnutrition, BMI 15 on admission; not improving - CT showing chronic low-grade obstruction. However clinically she is passing gas and passing fecal material. - Abdominal pain; chronic. Likely secondary to chronic, low grade stenosis and po attempts for maximal intake to maintain nutrition Plan - Remind patient and mother to provide [facility] records to [facility]/GI - Dietary recommendations continue with previous advice - Avoidance high fiber/large vegetables - Avoid over-eating: Frequent high-quality smaller meals recommended - Restriction of po intake - Appreciate time and recommendations by general surgery - TPN for nutrition and acknowledged need for intervention after nutrition stabilized - Await further recommendations by Dr. Alvarez, who will following the patient long-term - Will hold initiation of TPN until surgical evaluation completed - Recommend continued PT evaluation - Current pain likely secondary to large meals: recommend small, frequent meals - Majority of nutrition should come from TPN once placed - Prednisone taper: Currently at 20mg. Previous hospitalization DC 12/09/2016 indicates instruction for prednisone taper from 20mmg/day over the next week, then to drop down to 5mg/d in about 7 more days, then 5mg every other day for a wk then stop. Re-institute taper 12/23 - Consideration of possible dilation of stoma during this hospitalization - Next Humira due: 12/26; patient states she will need Rx (previous dose 12/12) - Must be provided by patient/family; not stocked in hospital pharmacy Patient has history of noncompliance, and removed Dobhoff the day of previous discharge while she was on her way home. Dobhoff was also removed while she was going home after the admission prior to that. Nutrition is essential for her, as she likely requires a complete revision, but her nutritional status is too poor to promote adequate healing. Previous discussions have included SNF. She is not a PEG candidate, as it would likely be more detrimental than beneficial especially because of the poor nutritional status indicated by low albumin. This is have significant impact on wound healing. Tube feeds were anticipated to last at least three months. Due to the history of noncompliance with Dobhoff and need for surgical intervention, TPN is next best choice. This does not come without risk, as her previous TPN site led to a DVT. She is still receiving anticoagulation at this time. Risks of TPN explained to patient, and because her need for nutrition is becoming increasingly critical, it is pursued at this time. 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 Will await further input by Dr. Alvarez of surgery, as he may likely follow patient prison. Total time: 60 minutes Pain Evaluation: Adequate Pain Control VTE Prophylaxis: SCDs, Other (On arixtra ) Resuscitation Status: CPR: Attempt Resuscitation Attending Statement Patient seen and examined. Agree with assessment and plan as described by Dr Arteaga. Patient is severely malnourished. Spoke with Dr Alvarez about her case. 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 Surgical revision of stoma may be a little more complex in this scenario,. Patient has been totally non-compliant with the recommended dobhoff tube feeds. Nutrition remains critical. Agree with TPN. Recommend evaluation with L upper extremity u/s as the PICC line team could not access the right side. PICC only on the left side if appears safe to do so at u/s. Otherwise, will need centrally placed line into either right IJ or right subclavian for TPN. Hopefully, lower risk for thrombosis while on fondaparinux. Taper steroids. Continue Humira for now. May need a repeat stoma dilatation. Full liquid diet. Elissa Arteaga DO Dec 22, 2016 10:48 Kirby Valdez MD Dec 22, 2016 23:48
[2016-12-22 11:48] LABS: APPEARANCE,URINE SLIGHTLY CLOUDY (CLEAR,HAZY); COLOR,URINE DARK YELLOW (YELLOW); OCCULT BLOOD,URINE NEGATIVE (NEGATIVE); UROBILINOGEN,URINE NORMAL (NORMAL)
[2016-12-22 12:12] LABS: OSMOLALITY, URINE 646 mOs/kH2O (250-1200)
[2016-12-22] MEDS ORDERED: TPN Per Pharmacist XX ONE (14:15)
[2016-12-22] MEDS ORDERED: Sodium Chloride LOK Flush 10 mL Syringe IVFLUSH PRN ×2 (14:15)
--- NOTE | 2016-12-22 16:15 | PROG NOTE ---
[address] [address] PROGRESS NOTE PATIENT: MAE FELIZ : 1985 MR#: [id number] ADMIT: 12/18/2016 JOB ID: [id number] DATE: 12/22/2016 The patient is seen in followup for the surgical team. I spent about 30 minutes with the patient reviewing her history, as well as prior to that going through her medical records. She is a 31-year-old female with a history of Crohn's diagnosed at age 18, who ultimately underwent a total abdominal proctocolectomy in 2013, performed at the [facility]. She stopped all medications after that surgery and had a year of doing fairly well, but then, unfortunately, developed recurrent symptoms from her Crohn's. She recently moved to the [facility] and has been cared for with respect to her Crohn disease by Dr. Luis Daniel Valdez. I also discussed her history and care with him. She has had a number of hospitalizations for dehydration, malnutrition, and was most recently hospitalized with the same complaint. For a brief period, she was receiving TPN through a PICC line but subsequently developed a DVT for which she is now on anticoagulation. An attempt was made at enteral feeding with an NG tube but was poorly tolerated. She complains of postprandial abdominal pain, some nausea, and immediate high ostomy output after eating. 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 She also has an ileal stricture just proximal to her ileostomy. Today she is afebrile. She is intermittently tachycardic, as high as 147 this morning. She is otherwise hemodynamically normal. She is alert and oriented and she appears comfortable and in good spirits. Her abdomen is soft, nondistended. She has some mild tenderness in her mid abdomen adjacent to the ileostomy site. Her ileostomy has liquid output. Her white blood cell count is normal at 7.1. Her hematocrit is 30.8. Her albumin today is 0.7. 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 I had a lengthy discussion with the patient regarding ongoing management. At this point, she is severely malnourished and in my opinion requires nutritional support with TPN. I do not think the enteral nutrition is going to be adequate. 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 Until her nutritional status is significantly improved, she remains at high risk for significant morbidity from any surgical procedure. In the meantime, I think further evaluation to better assess the nature of what is going on is worthwhile. A barium small bowel study, either antegrade or retrograde through the ileostomy, may be useful in defining the presence and extent of fistulizing disease. This does not necessarily need to happen during this hospitalization. The patient also informed me that she has an appointment to see a sap plant maintenance consultant at the [facility] in a week or so. I encouraged her to keep this appointment and to follow up with them. I also encouraged her that if she gets plugged in with colorectal surgeon down there, that I think that would be beneficial. Though I am certainly willing to provide her surgical care here, I think, given the complexity of her situation, she may be better served down there.
[2016-12-23] VITALS (8 sets, daily range): BP systolic 92–101; BP diastolic 60–70; PULSE 103–144; RESP 14–16; O2SAT 98–100
[2016-12-23] MEDS: HYDROmorphone 1 mg/mL Inj IVPUSH PRN ×4 (03:24→14:50)
[2016-12-23] MEDS: 0.9% Sodium Chloride 1,000 ML IV SCH ×5 (05:47→23:32)
[2016-12-23 07:17] LABS: BASOPHILS % (AUTO) 1.1 % (0-3); EOSINOPHILS % (AUTO) 0.2 % (0-5); MONOCYTES % (AUTO) 8.4 % (4-12); Mean Corpuscular Volume 73.4 fL (81-100); NEUTROPHILS % (AUTO) 66.7 % (40-74); Platelet Count 92 bil/L (150-400)
[2016-12-23 07:25] LABS: Magnesium 1.7 mg/dL (1.6-2.6); Phosphorus 3.7 mg/dL (2.5-4.9)
[2016-12-23] MEDS ORDERED: predniSONE 10 mg Tablet PO SCH (08:00)
[2016-12-23] MEDS: LORazepam 1 mg Tablet PO PRN (09:17)
[2016-12-23] MEDS ORDERED: 0.9% Sodium Chloride 500 ML IV ONE (09:30)
[2016-12-23] MEDS ORDERED: Mineral Oil-Petr Hydrophillic 50 Gm Ointment TOPICAL PRN (09:40)
[2016-12-23] MEDS ORDERED: Calamine 177 mL Lotion TOPICAL PRN (09:40)
[2016-12-23] MEDS ORDERED: Sodium Bicarb 8.4% Inj 100 MEQ in Dextrose 5% 1,000 ML IV SCH (10:15)
--- NOTE | 2016-12-23 10:22 | PCM.PNMED ---
Subjective Date of Service Dec 23, 2016 Subjective Afebrile overnight, continues to be hypotensive, especially after administering opiates. Mildly decreased ostomy output compared to the day before. PICC line placement was unsuccessful yesterday per report, will attempt again on left side or IJ. Did ok overnight. Continues to feel tired and lightheaded with exertion. Has been eating small meals consistently. Denies any CP, SOB, or fevers today. Exam Vital Signs Vital Sign - Last Date Time Temp Pulse Resp B/P Pulse Ox O2 Delivery O2 Flow Rate FiO2 12/23/16 05:54 36.5 128 14 92/60 Room Air 12/23/16 01:35 98 Intake and Output 12/22/16 12/22/16 12/23/16 Cumulative From/Thru 15:00 23:00 07:00 12/18/16 14:54 - 12/23/16 06:13 Intake Total 100 ml 2386 ml 1304 ml 25309 ml Output Total 600 ml 1450 ml 700 ml 9870 ml Balance -500 ml 936 ml 604 ml 4976 ml Intake Oral 100 ml 1350 ml 250 ml 6050 ml IV Total 1036 ml 1054 ml 8796 ml Output Urine Total 300 ml 450 ml 400 ml 2670 ml Stool Total 300 ml 1000 ml 300 ml 7200 ml Exam General: Thin cachectic Female who is Alert, Oriented X3, Cooperative, in NAD HEENT: PERRLA, Enlarged bright red tongue, dry oral mucosa. Symmetrically edematous cheeks Chest & Lungs: CTAB, no wheezing, normal resp effort Cardiovascular: Tachycardic, regular rhythm, no murmurs noted Pulses: Weak radial pulses bilaterally Abdomen: Tender (diffuse), Non-distended, Ostomy in place (RLQ; surrounding areas free of erythema) Extremities: Cool, Severe bilateral pitting edema from feet up to both knees. Skin: Dry cracking skin diffusely on back and extremities, early pressure ulcer changes on sacrum and iliac. Neurological: Grossly intact, no focal weakness Psych: Appropriate mood and affect IVs and Medications Medications Reviewed: Medications were reviewed in detail Lab and Diagnostics Result Diagram: 12/22/1651712/22/16517 X-Rays, CTs and MRIs CT ABDOMEN AND PELVIS WITHOUT CONTRAST IMPRESSION: 1. Free air is not identified. 2. Markedly distended colon suggesting distal colonic obstruction. Rectal tube may be of benefit. 3. Question of low-density stones versus particles of air in the gallbladder. Ultrasound is suggested. ADDENDUM: Additional information is that the patient has had a colectomy. The distended loops therefore must be small bowel. In addition there is an ileostomy rather an ileal loop into the right lower quadrant. In the operative from this is reportedly fairly good. This would indicate that C. dilated small bowel loops are related to a chronic low-grade obstruction or a relatively acute high-grade obstruction. No wall thickening or air in the tsai of the dilated loops is seen. Since the patient does not have obstructive symptoms clinically this is likely to be a distended loops from chronic partial low grade obstruction of a small bowel loop. Dictated by: Esteban Cabrera M.D. on 12/18/2016 at 18:44 US ABDOMEN, LIMITED IMPRESSION: Multiple stones in the gallbladder but no free air or changes to indicate acute cholecystitis. Dictated by: Esteban Cabrera M.D. on 12/18/2016 at 19:49 X-RAY ACUTE ABDOMINAL SERIES IMPRESSION: Changes are consistent with partial or early small bowel obstruction. Dictated by: Esteban Cabrera M.D. on 12/18/2016 at 20:37 Assessment & Plan Terra Beauchamp is an 31 year old woman that recently moved to the [facility] from [facility] with a complex history of Crohn's disease s/p total proctocolectomy with end ileostomy performed at [facility] in [place], [place]. She is on chronic glucocorticoids with Humira therapy, multiple prior obstructions/near obstructions near ostomy, recurrent flares, and recent left UE DVT secondary to PICC placement for TPN, who presented to the ED 2016 with acute on chronic diffuse abdominal pain, vomiting, and nausea. Hospital day #5 1. Abdominal pain in the setting of Crohn's disease s/p total proctocolectomy with RLQ ileostomy, acute, present on admission -Associated with nausea and vomiting. Probably associated with strictures and obstruction also. -Continue to encourage small high quality meals. -Continue immediate release Oxycodone. Will decrease IV Dilaudid today with plans to d/c it completely tomorrow if pain is tolerable. 2. Dehydration with Partial small bowel obstruction, acute, present on admission -Patient has a complex course of disease with poor response to treatment and complicated by anxiety and noncompliance -Most recent abdominal imaging shows evidence of developing small bowel obstruction but ostomy output is not entirely consistent with this DX -GI consulted will continue to follow, appreciate time and input. -Continue IVF while having poor PO intake -Bolus IV fluids now and monitor vital signs closely given pt has been hypotensive and tachycardic overnight -Surgery consulted and following. Appreciate time and input. 3. Recurrent ileostomy stoma stenosis s/p dilation now with high output - Appears to be resolved, - Ostomy with high output 4.Crohn's disease, present on admission -Requesting records from [facility] to be brought in by the patient's mother. -Continue Humira and prednisone -The patient needs to follow up with as her case is quite complex and she will continue to require expert consultation. 5. Severe protein/calorie malnutrition, BMI 15, present on admission - Patient not a PEG tube candidate per GI but surgical services asst believe this would be preferable option. - She has previously been noncompliant with Dobhoff due to discomfort and anxiety. - Patient would prefer TPN, but will consult with GI and Surgery for final recommendation. She is now anticoagulated on Fondaparinux due to UE DVT in October after PICC line placement. She is to continue the Fondaparinux for 6 months. - Will attempt PICC line again today. 6. Hypovolemic hyponatremia, chronic, present on admission -Likely due to high output ostomy as above -Continues to be tachycardic and hypotensive. ---Will aggressively hydrate today with a 500ml Bolus then 100mls/hr of NS and 150mls/hr of D5w with 2 amps of bicarb for today and recheck BMP in afternoon. 7. Hypochromic microcytic anemia, likely iron deficiency, chronic, present on admission -Due to poor oral intake and poor nutritional status -Consider iron supplementation as outpatient 8. Anxiety and Depression, POA Patient's anxiety and depression are related to disease condition but creating significant morbidity none the less. Will continue Klonopin 0.5mg BID and Fluoxetine 10mg daily, with plan to titrate Fluoxetine up. Dispo: Will likely require 1-2 days for stabilization and TPN placement. Pain Evaluation: Adequate Pain Control VTE Prophylaxis: SCDs, Other (On arixtra ) VTE Mechanical Devices: Intermittant Pneumatic CD Resuscitation Status: CPR: Attempt Resuscitation Attending Statement The patient was seen and examined together with Dr. Diane on 12/23/2016 and I agree with the history, exam and plan as outlined in the note above. Javi Diane DO Dec 23, 2016 06:47 Jorge L Vivas MD Dec 24, 2016 08:54
--- NOTE | 2016-12-23 10:49 | PCM.PNMED ---
Subjective Date of Service Dec 23, 2016 Subjective GASTROENTEROLOGY PROGRESS NOTE Patient states that she is fatigued and weak today. Denies palpitations, shortness of breath. States that she is tolerating po intake well, but still endorses some diffuse abdominal pain. Exam Vital Signs Vital Sign - Last Date Time Temp Pulse Resp B/P Pulse Ox O2 Delivery O2 Flow Rate FiO2 12/23/16 10:39 126 12/23/16 09:31 36.7 14 97/65 Room Air 12/23/16 01:35 98 Intake and Output 12/22/16 12/22/16 12/23/16 Cumulative From/Thru 15:00 23:00 07:00 12/18/16 14:54 - 12/23/16 06:13 Intake Total 100 ml 2386 ml 1304 ml 16378 ml Output Total 600 ml 1450 ml 700 ml 9870 ml Balance -500 ml 936 ml 604 ml 4976 ml Intake Oral 100 ml 1350 ml 250 ml 6050 ml IV Total 1036 ml 1054 ml 8796 ml Output Urine Total 300 ml 450 ml 400 ml 2670 ml Stool Total 300 ml 1000 ml 300 ml 7200 ml Exam General: Alert, Oriented X3, Cooperative, No acute distress Head: Facial Expression & Appearance (symmetric) Nose: Mucous Membr Moist/[place] Mouth: Mucous Membr Moist/[place] Chest & Lungs: Auscultation (clear bilaterally), No adventitious breath sounds Cardiovascular: Regular Rate/Rhythm, Murmur (soft systolic) Pulses: Radial (equal and bilateral) Abdomen: Tender (diffuse, improved), Non-distended, Ostomy (RLQ; liquid green- yellow output; surrounding areas free of erythema). Extremities: Warm, Edema (Bilateral mild-moderate pitting at ankles extending to mid-calf) Skin: Warm and dry Neurological: Cranial Nerves 2-12 Intact, Normal Speech (without slur) Psych: Appropriate mood, affect, and responses to questioning; seems depressed. Poor insight and judgment based on history of noncompliance Lab and Diagnostics Result Diagram: 12/23/16 0535 12/23/16 0535 X-Rays, CTs and MRIs CT ABDOMEN AND PELVIS WITHOUT CONTRAST IMPRESSION: 1. Free air is not identified. 2. Markedly distended colon suggesting distal colonic obstruction. Rectal tube may be of benefit. 3. Question of low-density stones versus particles of air in the gallbladder. Ultrasound is suggested. ADDENDUM: Additional information is that the patient has had a colectomy. The distended loops therefore must be small bowel. In addition there is an ileostomy rather an ileal loop into the right lower quadrant. In the operative from this is reportedly fairly good. This would indicate that C. dilated small bowel loops are related to a chronic low-grade obstruction or a relatively acute high-grade obstruction. No wall thickening or air in the tsai of the dilated loops is seen. Since the patient does not have obstructive symptoms clinically this is likely to be a distended loops from chronic partial low grade obstruction of a small bowel loop. Dictated by: Esteban Cabrera M.D. on 12/18/2016 at 18:44 US ABDOMEN, LIMITED IMPRESSION: Multiple stones in the gallbladder but no free air or changes to indicate acute cholecystitis. Dictated by: Esteban Cabrera M.D. on 12/18/2016 at 19:49 X-RAY ACUTE ABDOMINAL SERIES IMPRESSION: Changes are consistent with partial or early small bowel obstruction. Dictated by: Esteban Cabrera M.D. on 12/18/2016 at 20:37 Assessment & Plan GASTROENTEROLOGY PROGRESS NOTE Ms. Terra Beauchamp is an extremely pleasant 31 year old woman that recently moved to the [facility] from [facility] with a complex history of Crohn 's disease s/p total proctocolectomy with end ileostomy performed at [facility] in [place], [place]. She is on chronic glucocorticoids with Humira therapy, multiple prior obstructions/near obstructions near ostomy, recurrent flares, and recent left UE DVT secondary to PICC placement for TPN, who presented to the ED 12/18/2016 with acute on chronic diffuse abdominal pain, vomiting, and nausea. Reason for consult: Established GI patient with complex GI history that is the underlying etiology of current symptoms and recurrent admissions CT A/P wo/contrast 12/18: No free air; low density stones vs free air in gallbladder; dilated loops small bowel likely related to chronic low-grade obstruction. 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 - Adrenal insufficiency secondary to chronic steroid use - LUE DVT secondary to PICC placement, on fondaparinux - Severe protein/calorie malnutrition, BMI 15 on admission; not improving - CT showing chronic low-grade obstruction. However clinically she is passing gas and passing fecal material. - Abdominal pain; chronic. Likely secondary to chronic, low grade stenosis and po attempts for maximal intake to maintain nutrition Plan - Diet: full liquids only at this time - LUE doppler US to evaluate patency - Right sided PICC evaluation revealed no site adequate for TPN infusion - If left site patent, will place left PICC for TPN - If left site unsuitable for PICC + TPN; will proceed with RIJ or right subclavian for TPN - Remind patient and mother to provide [facility] records to [facility]/GI - Recommend continued PT evaluation - Prednisone taper: Currently at 10mg, started 12/23 x7 days. - Previous hospitalization DC 12/09/2016 indicates instruction for prednisone taper from 20mmg/day over the next week, then to drop down to 5mg/d in about 7 more days, then 5mg every other day for a wk then stop. Re- instituted taper 12/23 - Consideration of possible dilation of stoma during this hospitalization - Next Humira due: 12/26; patient states she will need Rx (previous dose 12/12) - Must be provided by patient/family; not stocked in hospital pharmacy Patient has history of noncompliance, and removed Dobhoff the day of previous discharge while she was on her way home. Dobhoff was also removed while she was going home after the admission prior to that. Nutrition is essential for her, as she likely requires a complete revision, but her nutritional status is too poor to promote adequate healing. Previous discussions have included SNF. She is not a PEG candidate, as it would likely be more detrimental than beneficial especially because of the poor nutritional status indicated by low albumin. This is have significant impact on wound healing. Tube feeds were anticipated to last at least three months. Due to the history of noncompliance with Dobhoff and need for surgical intervention, TPN is next best choice. This does not come without risk, as her previous TPN site led to a DVT. She is still receiving anticoagulation at this time. Risks of TPN explained to patient, and because her need for nutrition is becoming increasingly critical, it is pursued at this time. TPN carries significant risk of infection, especially with her history of immunosuppression secondary to emt intermediate steroids and now Humira use. Total time: 45 minutes VTE Prophylaxis: SCDs, Other (On arixtra ) VTE Mechanical Devices: Intermittant Pneumatic CD Resuscitation Status: CPR: Attempt Resuscitation Attending Statement Patient seen and examined. Agree with assessment and plan. Unfortunately, the order for LUE u/s has not been acted on yet. I discussed with the UA on [facility] and she is currently working on expediting study. Patient needs TPN immediately. If unsafe to try again in the left upper extremity at u/s, then will need centrally placed catheter in right IJ as per interventional radiology. Has plenty of output into stoma. Discussed possibility and likelihood of fistula. Ultimately will need a small bowel follow through to get a sense as to presence of entero-enteric fistulae. However, no campa to do so currently. Would like to see her significantly improved from a nutrion standpoint and perhaps even a little closer to surgical candidacy prior to such an evaluation. Continue planned pred taper. Continue full liquid diet for now. Continue Humira. Will continue to follow. Has an appt c Dr Dominic Zaidi at on the . Elissa Arteaga DO Dec 23, 2016 10:49 Kirby Valdez MD Dec 23, 2016 16:00
--- NOTE | 2016-12-23 14:40 | PCM.PHAPRO ---
Progress TPN Management: -awaiting central line placement for pt to begin TPN -in anticipation of this today, will begin Day 1 of TPN tonight at 2100 -pt with malnutrition due to Crohn's disease with ~ 15% wt loss in the past 10 days -bmi of 14.4 -checked with hospitalist service and will be continuing the NS at 100ml/hr in addition to TPN -dietary components to include Dextrose 65gm, Amino Acids 45gm, Lipids 20gm -formula for this evening will be: PARENTERAL NUTRITION ORDERS 1 - Standard Hang Time: 2100 Substrates Total kcal: 651 AMINO ACIDS 45 g DEXTROSE 65 g Total Volume (mL): 1100 LIPIDS 25 g Sterile Water for Injection QS mL To Infuse Over (hrs): 24 Total Volume 1100 mL At at a rate of (mL/hr): 46 Additives Sodium Chloride 90 mEq "typical" daily requirements Sodium Acetate 30 mEq Sodium 50-120mEq Potassium Chloride mEq Potassium 60-120mEq Potassium Phosphate mEq Phosphate 20-40mEq Calcium Gluconate 4.5 mEq Magnesium 8-32mEq Magnesium Sulfate 8 mEq Calcium 9-22mEq Acetate* 80-120mEq Chloride* 80-120mEq Regular Insulin units *Depending on acid-base status Famotidine mg Multivitamins 1 std dose Insulin Regimen Trace Elements 1 std dose none Thiamine mg Regular Low Intensity Subcut Folic Acid mg Regular Medium Intensity Subcut Ascorbic Acid mg Regular High Intensity Subcut Regular Insulin Infusion Other: Diana Grossman [facility] Dec 23, 2016 14:40
[2016-12-23] MEDS: Ondansetron 2 mg/mL 2 mL Inj IVPUSH PRN ×2 (14:50→17:42)
--- NOTE | 2016-12-23 17:12 | DRSVH ---
PROCEDURE: US VENOUS ARM DUPLEX UNILATERAL, LEFT INDICATIONS: REEVALUATE SUBLARRAIN DVT TECHNIQUE: Real-time imaging, as well as color and pulse Doppler interrogation, was performed of the left upper extremity deep veins from the inferior neck to the antecubital fossa. COMPARISON: None. FINDINGS: The internal jugular vein, visualized portions of the subclavian vein, axillary, and brach ial veins are free of intraluminal thrombus. Where physically possible, the veins are normally compr essible. Color and pulse Doppler demonstrate normal intraluminal flow, with expected phasicity and p ulsatility. Additional scanning of the cephalic and basilic veins of the superficial system demonstr ate normal appearance of the cephalic vein. Basilic vein not identified. Of note, brachial artery a nd veins are paired. IMPRESSION: 1. The basilic vein is not identified otherwise no definite venous thrombosis seen. Dictated by: Jimmy Eubanks [facility] Interpreted: Dominic Joyce MD on 12/23/2016 at 17:07 Transcribed by: HOMA on 12/23/2016 at 17:09 Approved by: Dominic Joyce M.D. on 12/25/2016 at 10:08
[2016-12-23] MEDS: Total Parenteral Nutrition 1 BAG IV SCH (21:00)
[2016-12-23] MEDS: SODIUM BICARB IV SCH (23:25)
[2016-12-23] MEDS: SODIUM CHLORIDE 0.9% IV SCH (23:25)
[2016-12-24] VITALS (9 sets, daily range): BP systolic 89–104; BP diastolic 56–69; PULSE 11–131; RESP 14–16; O2SAT 95–99
[2016-12-24 05:35] LABS: BASOPHILS % (AUTO) 0.4 % (0-3); EOSINOPHILS % (AUTO) 0 % (0-5); MONOCYTES % (AUTO) 4.7 % (4-12); Mean Corpuscular Hemoglobin 23.1 pg (27.0-35.0); Mean Corpuscular Volume 74.4 fL (81-100); NEUTROPHILS % (AUTO) 78.7 % (40-74); Platelet Count 56 bil/L (150-400)
[2016-12-24] MEDS: SODIUM CHLORIDE 0.9% IV SCH ×2 (05:40→15:38)
[2016-12-24] MEDS: SODIUM BICARB IV SCH ×2 (05:40→15:38)
[2016-12-24] MEDS: 0.9% Sodium Chloride 1,000 ML IV SCH ×4 (06:04→20:35)
[2016-12-24 06:08] LABS: Magnesium 1.4 mg/dL (1.6-2.6); Phosphorus 2.4 mg/dL (2.5-4.9)
[2016-12-24] MEDS ORDERED: Magnesium Sulf 4 Gm/100 mL H2O 4 GM in IV Premix 1 EACH IV ONE (06:55)
[2016-12-24] MEDS ORDERED: 0.9% Sodium Chloride 1,000 ML IV ONE ×2 (07:35→14:40)
[2016-12-24] MEDS ORDERED: predniSONE 5 mg Tablet PO SCH (08:00)
--- NOTE | 2016-12-24 09:18 | PCM.PNMED ---
Subjective Date of Service Dec 24, 2016 Subjective GASTROENTEROLOGY PROGRESS NOTE Today, patient states increased, diffuse abdominal pain, with tenderness with palpation and touch, Ostomy output remains liquid, green-yellow in coloration. Tolerating po liquid intake with some reported nausea. Feels weak. States feels worse than days prior in this admission. Exam Vital Signs Vital Sign - Last Date Time Temp Pulse Resp B/P Pulse Ox O2 Delivery O2 Flow Rate FiO2 12/24/16 05:32 36.8 131 16 93/64 99 Room Air Intake and Output 12/23/16 12/23/16 12/24/16 Cumulative From/Thru 15:00 23:00 07:00 12/18/16 14:54 - 12/24/16 06:19 Intake Total 4992 ml 2382 ml 31906 ml Output Total 1700 ml 700 ml 50199 ml Balance 3292 ml 1682 ml 9950 ml Intake Oral 1300 ml 320 ml 7670 ml IV Total 3692 ml 2062 ml 93054 ml Output Urine Total 400 ml 3070 ml Stool Total 1300 ml 8500 ml Urine/Stool Mix 700 ml 700 ml Exam General: Alert, Oriented X3, Cooperative, No acute distress Head: Facial Expression & Appearance (symmetric) Nose: Mucous Membr Moist/[place] Mouth: Mucous Membr Moist/[place] Chest & Lungs: Auscultation (clear bilaterally), No adventitious breath sounds Cardiovascular: Regular Rate/Rhythm, Murmur (soft systolic) Pulses: Radial (equal and bilateral) Abdomen: Tender (diffuse, improved), Non-distended, Ostomy (RLQ; liquid green- yellow output; surrounding areas free of erythema). Extremities: Warm, Edema (Bilateral mild-moderate pitting at ankles extending to mid-calf) Skin: Warm and dry Neurological: Cranial Nerves 2-12 Intact, Normal Speech (without slur) Psych: Appropriate mood, affect, and responses to questioning; seems depressed. Poor insight and judgment based on history of noncompliance Lab and Diagnostics Result Diagram: 12/24/1652912/24/16 05 X-Rays, CTs and MRIs CT ABDOMEN AND PELVIS WITHOUT CONTRAST IMPRESSION: 1. Free air is not identified. 2. Markedly distended colon suggesting distal colonic obstruction. Rectal tube may be of benefit. 3. Question of low-density stones versus particles of air in the gallbladder. Ultrasound is suggested. ADDENDUM: Additional information is that the patient has had a colectomy. The distended loops therefore must be small bowel. In addition there is an ileostomy rather an ileal loop into the right lower quadrant. In the operative from this is reportedly fairly good. This would indicate that C. dilated small bowel loops are related to a chronic low-grade obstruction or a relatively acute high-grade obstruction. No wall thickening or air in the tsai of the dilated loops is seen. Since the patient does not have obstructive symptoms clinically this is likely to be a distended loops from chronic partial low grade obstruction of a small bowel loop. Dictated by: Esteban Cabrera M.D. on 12/18/2016 at 18:44 US ABDOMEN, LIMITED IMPRESSION: Multiple stones in the gallbladder but no free air or changes to indicate acute cholecystitis. Dictated by: Esteban Cabrera M.D. on 12/18/2016 at 19:49 X-RAY ACUTE ABDOMINAL SERIES IMPRESSION: Changes are consistent with partial or early small bowel obstruction. Dictated by: Esteban Cabrera M.D. on 12/18/2016 at 20:37 Assessment & Plan GASTROENTEROLOGY PROGRESS NOTE Ms. Terra Beauchamp is an extremely pleasant 31 year old woman that recently moved to the [facility] from [facility] with a complex history of Crohn 's disease s/p total proctocolectomy with end ileostomy performed at [facility] in [place], [place]. She is on chronic glucocorticoids with Humira therapy, multiple prior obstructions/near obstructions near ostomy, recurrent flares, and recent left UE DVT secondary to PICC placement for TPN, who presented to the ED 12/18/2016 with acute on chronic diffuse abdominal pain, vomiting, and nausea. Reason for consult: Established GI patient with complex GI history that is the underlying etiology of current symptoms and recurrent admissions CT A/P wo/contrast 12/18: No free air; low density stones vs free air in gallbladder; dilated loops small bowel likely related to chronic low-grade obstruction. LUE doppler 12/23: Pre-Garrett report, not finalized: The basilic vein is not identified otherwise no definite venous thrombosis seen. 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 - Adrenal insufficiency secondary to chronic steroid use - LUE DVT secondary to PICC placement, on fondaparinux - Severe protein/calorie malnutrition, BMI 15 on admission; not improving - CT showing chronic low-grade obstruction. However clinically she is passing gas and passing fecal material. - Abdominal pain; chronic. Likely secondary to chronic, low grade stenosis and po attempts for maximal intake to maintain nutrition Plan - Blood cultures + UCx - Empiric antibiotics- Zosyn therapy initiated - Stat imaging- CT A/P; patient has contrast allergy to IV and PO - Stress dose steroids; re-assess at 24hours - Diet: full liquids only at this time - LUE doppler US to evaluate patency- await final read, pre-garrett states patency - Right sided PICC evaluation revealed no site adequate for TPN infusion - If left site patent, will place left PICC for TPN - If left site unsuitable for PICC + TPN; will proceed with RIJ or right subclavian for TPN - Remind patient and mother to provide [facility] records to [facility]/GI - Recommend continued PT evaluation - Prednisone taper: Resume back to 20mg daily 12/25 - Previous hospitalization DC 12/09/2016 indicates instruction for prednisone taper from 20mmg/day over the next week, then to drop down to 5mg/d in about 7 more days, then 5mg every other day for a wk then stop. - Consideration of possible dilation of stoma during this hospitalization - Next Humira due: 12/26; patient states she will need Rx (previous dose 12/12) - Must be provided by patient/family; not stocked in hospital pharmacy - Has appt with Dr. Dominic Zaidi at on 12/31 Patient has history of noncompliance, and removed Dobhoff the day of previous discharge while she was on her way home. Dobhoff was also removed while she was going home after the admission prior to that. Nutrition is essential for her, as she likely requires a complete revision, but her nutritional status is too poor to promote adequate healing. Previous discussions have included SNF. She is not a PEG candidate, as it would likely be more detrimental than beneficial especially because of the poor nutritional status indicated by low albumin. This is have significant impact on wound healing. Tube feeds were anticipated to last at least three months. Due to the history of noncompliance with Dobhoff and need for surgical intervention, TPN is next best choice. This does not come without risk, as her previous TPN site led to a DVT. She is still receiving anticoagulation at this time. Risks of TPN explained to patient, and because her need for nutrition is becoming increasingly critical, it is pursued at this time. 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 Total time: 45 minutes VTE Prophylaxis: SCDs, Other (On arixtra ) VTE Mechanical Devices: Intermittant Pneumatic CD Resuscitation Status: CPR: Attempt Resuscitation Attending Statement Patient seen and examined. Agree with assessment and plan as described by Dr Arteaga. Very frustrated that line not in yet to start patient on the incredibly crucial TPN. However, this afternoon patient decompensated with increased abd pain, fever, and nausea. Has been hypotensive with elevated heart rate. Procalcalcitonin level is elevated. I spoke with Jimmy Eubanks this afternoon. U/s of TOYIN looked like it my accept PICC. Team was planning on putting in Right IJ this afternoon. Either way needs the central access immediately. We'll see what cultures reveal. Agree with IV antibiotics. Agree with stress dose steroids. Part of symptoms may be too rapid a taper of prednisone. To my exam this afteroon, patient is quite uncomfortable with a distended tympanitic abdomen. Bowel sounds active and suggest there is an element of obstruction. There is yelllow liquid in stoma bag. I think that patient can pass some fluid and some gas, but not much else. Appears to need another urgent decompression. Will take down to endo urgently. Elissa Arteaga DO Dec 24, 2016 09:18 Kirby Valdez MD Dec 24, 2016 17:43
--- NOTE | 2016-12-24 09:45 | PCM.PNMED ---
Subjective Date of Service Dec 24, 2016 Subjective Continues to be hypotensive in the 90s systolic and tachycardic in the 110-120s hr over night. Patient asymptomatic if not exerting herself. Terra reports that she feels weaker this morning. She reports her abdominal pain is still persistent, and may be a bit worse. Her ostomy output continue to be very thin. She has not noticed any fevers, CP, or HERNANDEZ. She is tolerating the full liquid diet. She also complains of a burning tongue this morning. Exam Vital Signs Vital Sign - Last Date Time Temp Pulse Resp B/P Pulse Ox O2 Delivery O2 Flow Rate FiO2 12/24/16 05:32 36.8 131 16 93/64 99 Room Air Intake and Output 12/23/16 12/23/16 12/24/16 Cumulative From/Thru 14:59 22:59 06:59 12/18/16 14:54 - 12/24/16 06:19 Intake Total 4992 ml 2382 ml 15068 ml Output Total 1700 ml 700 ml 15357 ml Balance 3292 ml 1682 ml 9950 ml Intake Oral 1300 ml 320 ml 7670 ml IV Total 3692 ml 2062 ml 04686 ml Output Urine Total 400 ml 3070 ml Stool Total 1300 ml 8500 ml Urine/Stool Mix 700 ml 700 ml Exam General: Thin cachectic Female who appears more lethargic while laying in bed this morning. HEENT: PERRLA, Enlarged bright red tongue, dry oral mucosa with diffuse white webbing. Symmetrically edematous cheeks Chest & Lungs: CTAB, no wheezing, normal resp effort Cardiovascular: Tachycardic, regular rhythm, no murmurs noted Pulses: Weak radial pulses bilaterally Abdomen: Tender to palpation diffusely although most tender in the LLQ, Non- distended, No guarding, No rebound, Ileostomy in place, stoma free of erythema Extremities: Cool, Severe bilateral pitting edema from feet up to both knees. Skin: Dry cracking skin diffusely on back and extremities, early pressure ulcer changes on sacrum and iliac. Neurological: Grossly intact, no focal weakness Psych: Flat mood and affect today IVs and Medications IV Fluids IV NS 100mls/hr IV NS with 2 amps bicarb 100mls/hr Medications Reviewed: Medications were reviewed in detail Lab and Diagnostics Result Diagram: 12/24/1630 12/24/16 0530 X-Rays, CTs and MRIs CT ABDOMEN AND PELVIS WITHOUT CONTRAST IMPRESSION: 1. Free air is not identified. 2. Markedly distended colon suggesting distal colonic obstruction. Rectal tube may be of benefit. 3. Question of low-density stones versus particles of air in the gallbladder. Ultrasound is suggested. ADDENDUM: Additional information is that the patient has had a colectomy. The distended loops therefore must be small bowel. In addition there is an ileostomy rather an ileal loop into the right lower quadrant. In the operative from this is reportedly fairly good. This would indicate that C. dilated small bowel loops are related to a chronic low-grade obstruction or a relatively acute high-grade obstruction. No wall thickening or air in the tsai of the dilated loops is seen. Since the patient does not have obstructive symptoms clinically this is likely to be a distended loops from chronic partial low grade obstruction of a small bowel loop. Dictated by: Esteban Cabrera M.D. on 12/18/2016 at 18:44 US ABDOMEN, LIMITED IMPRESSION: Multiple stones in the gallbladder but no free air or changes to indicate acute cholecystitis. Dictated by: Esteban Cabrera M.D. on 12/18/2016 at 19:49 X-RAY ACUTE ABDOMINAL SERIES IMPRESSION: Changes are consistent with partial or early small bowel obstruction. Dictated by: Esteban Cabrera M.D. on 12/18/2016 at 20:37 Assessment & Plan Terra Beauchamp is an 31 year old woman that recently moved to the [facility] from the [facility] with a complex history of Crohn's disease s/p total proctocolectomy with end ileostomy performed at [facility] in [place], [place]. She is on chronic glucocorticoids with Humira therapy, multiple prior obstructions/near obstructions near ostomy, recurrent flares, and recent left UE DVT secondary to PICC placement for TPN, who presented to the ED 2016 with acute on chronic diffuse abdominal pain, vomiting, and nausea. Hospital day #7 #Fever, acute Patient was noted to develop a fever this morning. She continues to be hypotensive despite over 6 liters of fluids yesterday. She is having worsening abd pain, especially in the LLQ. Patient is likely septic and will undergo a sepsis workup. Source is likely her abdomen. Concerns for abscess formation and ischemia Blood cultures ordered, CT Abd pelvis without contrast due to allergy, WIll initiate empiric antibiotics after blood cultures drawn. Will continue hydrating copiously. #Hypovolemic hyponatremia, chronic, present on admission -Has been increasingly tachycardic and hypotensive as a result of her hypovolemic state secondary to High Output Ileostomy and poor absorption --Sodium levels and bicarb levels improving, but patient continues to be hypotensive and tachycardic. --Will continue IV NS and IV NS with bicarb through today and reassess electrolyte status in the PM. #Thrombocytopenia, acute - She reports that her edematous face and feet coincided with initiation of Prednisone and Arixtra. She has been slowly tapering off of Prednisone, but the edema of her face continues to worsen. - She also is developing thrombocytopenia with her platelets continuing to decrease to 56 today. Part of the decrease may be dilutional with all the increased fluids, but her platelet levels have been trending downwards. - Will continue to taper off Prednisone slowly and continue to evaluate for source of thrombocytopenia. #Abdominal pain in the setting of Crohn's disease s/p total proctocolectomy with RLQ ileostomy, acute, present on admission -She has been complaining of generalized Abd pain, worse in the LLQ. Pain is associated with nausea and vomiting. Likely due to strictures and obstruction -Continue to encourage small high quality meals. -Continue immediate release Oxycodone. D/William IV Dilaudid. -Continuing to have generalized abd pain. May require repeat imaging and NGT decompression if obstruction is worsening. # Early or partial small bowel obstruction, acute, present on admission -Most recent abdominal imaging shows evidence of developing small bowel obstruction and other strictures. She is still having high ostomy output, although mostly just liquids. -GI consulted, will continue to follow, appreciate time and input. -Continue IVF while having poor PO intake -Surgery consulted and following. Appreciate time and input. # Crohn's disease with RLQ high output Ileostomy with Severe protein/calorie malnutrition, POA - Continue patient's home Humira and taper off of Prednisone - Patient not a PEG tube candidate per GI but ophthalmology surgical technician believe this would be preferable option. - She has previously been noncompliant with Dobhoff due to discomfort and anxiety. - Patient would prefer TPN, but will consult with GI and Surgery for final recommendation. She is now anticoagulated on Fondaparinux due to UE DVT in October after PICC line placement. She is to continue the Fondaparinux for 6 months. - Will attempt PICC line again today. # Hypochromic microcytic anemia, likely iron deficiency, chronic, present on admission -Due to poor oral intake and poor nutritional status -Consider iron supplementation as outpatient # Anxiety and Depression, POA Patient's anxiety and depression are related to disease condition but creating significant morbidity none the less. Will continue Klonopin 0.5mg BID and up to FLuoxetine 20mg daily #Likely Oral Candidiasis, acute Secondary to Prednisone usage. Will plan to tx with Nystatin Swish and spit Dispo: Will likely require 2-3 days for stabilization and TPN placement. Pain Evaluation: Adequate Pain Control VTE Prophylaxis: SCDs, Other (On arixtra ) VTE Mechanical Devices: Intermittant Pneumatic CD Resuscitation Status: CPR: Attempt Resuscitation Attending Statement The patient was seen and examined together with Dr. Diane on 12/24/2016 and I agree with the history, exam and plan as outlined in the note above. Will transfer pt to ICU now as she is more and more hemodynamically unstable. Javi Diane DO Dec 24, 2016 06:59 Jorge L Vivas MD Dec 25, 2016 09:10
[2016-12-24] MEDS ORDERED: Propofol 10,000 mCg/mL 20 mL Inj ONE (10:16)
[2016-12-24] MEDS ORDERED: fentaNYL-PF 50 mCg/mL 2 mL Inj ONE (10:16)
[2016-12-24] MEDS: Nystatin 100,000 Unit/mL 5 mL Suspension PO SCH ×2 (10:29→20:30)
[2016-12-24] MEDS ORDERED: cefTRIAXone Inj 2,000 MG in Dextrose 5% Minibag Plus 50 ML IV SCH (11:40)
[2016-12-24] MEDS: Piperacillin-Tazo 3.375 Gm Inj 3.375 GM in Dextrose 5% Minibag Plus 50 ML IV SCH ×2 (11:40→20:31)
[2016-12-24] MEDS ORDERED: metroNIDAZOLE Inj 1,000 MG in IV Premix 1 EACH IV SCH (11:40)
[2016-12-24] MEDS: Hydrocortisone 50 mg/mL 2 mL Inj IVPUSH SCH ×2 (13:17→16:38)
--- NOTE | 2016-12-24 13:24 | DRSVH ---
PROCEDURE: CT ABDOMEN AND PELVIS WITHOUT CONTRAST ([id number]) INDICATIONS: worsening LLQ pain, new fever, hypotensive TECHNIQUE: After the administration of oral contrast, 5 mm thick sections acquired from the diaphragms to the sy mphysis. 5 mm coronal and sagittal reformats were performed. For radiation dose reduction, the foll owing was used: automated exposure control, adjustment of mA and/or kV according to patient size. COMPARISON: [facility], CT, CT ANGIO CHEST PE, 10/25/2016, 13:39. [facility] , CT, CT ABD PELVIS WO CON, 12/18/2016, 17:29. FINDINGS: Image quality: Excellent. ABDOMEN: Lung bases: Small bilateral pleural effusions are new. There are bibasilar consolidations or atelecta sis. Heart size is normal. Solid organs: Liver and spleen are normal in size. Gallbladder contains gallstones and sludge. Mcguire creas is normal in size. No adrenal nodules. Both kidneys are normal in size, without hydronephrosi s. There is a 5 mm hyperdense nodule in the right kidney. Peritoneum and bowel: The patient has a history of total colectomy and right lower quadrant ileostom y. There is a small amount of free fluid, which is new. Mild small bowel distention is present, which is decreased compared to last exam. The maximum diameter of the small bowel measures 3.[address] There are air-fluid levels in the small intestine. There is short segment small bowel thickening in the right lower quadrant. No free air. Nodes and vessels: Multiple enlarged mesenteric lymph nodes are present. There is also enlarged para- aortic lymph nodes. Aorta and inferior vena cava are normal in size. Miscellaneous: No ventral hernias. There is subcutaneous fluid collection and pockets of subcutaneo us gas. There is diffuse body wall edema. PELVIS: Genitourinary: Bladder wall thickness is normal. Miscellaneous: No inguinal hernias or adenopathy. Bones: No suspicious bony lesions. No vertebral body compression fractures. IMPRESSION: 1. Suboptimal examination due to lack of oral and intravenous contrast. 2. There is total colectomy and right lower quadrant ileostomy. Mild concentric thickening of a short segment of small bowel loop is noted in the right lower quadrant. There is decreased overall small b owel distention compared to 12/18/2016. 3. A small amount of free peritoneal fluid, which is new. 4. Small bilateral pleural effusions with bibasilar consolidation or atelectasis. Cannot rule out bib asilar pneumonia. 5. Diffuse body wall edema and subcutaneous fluid collection with pockets of subcutaneous gas. Cannot rule out postoperative wound infection. 6. There is mesenteric and retroperitoneal lymphadenopathy, which is nonspecific. The result was discussed with Dr. Valdez on 12/24/2016 at 1405 hours. Dictated by: More Woodard M.D. on 12/24/2016 at 13:01 Transcribed by: MASON on 12/24/2016 at 13:24 Approved by: More Woodard M.D. on 12/24/2016 at 14:12
[2016-12-24 13:38] LABS: APPEARANCE,URINE HAZY (CLEAR,HAZY); COLOR,URINE YELLOW (YELLOW); OCCULT BLOOD,URINE NEGATIVE (NEGATIVE); UROBILINOGEN,URINE NORMAL (NORMAL)
[2016-12-24] MEDS ORDERED: Albumin 25% 50 GM in IV Premix 1 EACH IV ONE (13:40)
--- NOTE | 2016-12-24 14:14 | PROG NOTE ---
[address] [address] PROGRESS NOTE PATIENT: MAE FELIZ : 1985 MR#: [id number] ADMIT: 12/18/2016 JOB ID: [id number] DATE: 12/24/2016 SUBJECTIVE: The patient is seen in followup for her recent admission for malnutrition and Crohn disease. Over the last couple of days since I last saw the patient, it looks like not a whole lot has changed. Apparently because of access issues TPN has not been started yet. There is talk of placing a percutaneous central line. Today the patient tells me she is feeling much weaker. She is febrile up to 38.2. She is tachycardic into the 130s. She is hypotensive. Her hematocrit has dropped a little bit from 32.9 to 26.1 this morning. Her calcium is low at 5.9. Her phos and mag were both low. Her procalcitonin is high at 0.32. Her most recent albumin yesterday was 1. Lactic acid yesterday was 3.1 and is down to 2 today. ASSESSMENT AND PLAN: This is a 31-year-old female with a history of a history of total proctocolectomy for Crohn's colitis, who now is suffering from high ostomy output malnutrition as well as an intestinal stricture near the stoma. II am very concerned about the patient. I think essentially she is starving to . The description of high ostomy output 10 minutes after consuming a meal suggests a proximal to distal fistula resulting in significantly limited absorption capacity. I think if we are unable to get vascular access and start providing nutritional support within the next day that she would probably be better served by being transferred down to the [facility] where she can receive comprehensive care.
--- NOTE | 2016-12-24 15:09 | PCM.PHAPRO ---
Progress Date of Service: Dec 24, 2016 TPN PARENTERAL NUTRITION ORDERS 2 24-Dec-16 Standard Hang Time: 2100 Substrates Total kcal: 651 AMINO ACIDS 45 g DEXTROSE 65 g Total Volume (mL): 1100 LIPIDS 25 g Sterile Water for Injection QS mL To Infuse Over (hrs): 24 Total Volume 1100 mL At at a rate of (mL/hr): 46 Additives Sodium Chloride 90 mEq "typical" daily requirements Sodium Acetate 30 mEq Sodium 50-120mEq Potassium Chloride 20 mEq Potassium 60-120mEq Potassium Phosphate 20 mEq Phosphate 20-40mEq Calcium Gluconate 4.5 mEq Magnesium 8-32mEq Magnesium Sulfate 8 mEq Calcium 9-22mEq Acetate* 80-120mEq Chloride* 80-120mEq Regular Insulin units *Depending on acid-base status Famotidine mg Multivitamins 1 std dose Insulin Regimen Trace Elements 1 std dose none Thiamine mg Regular Low Intensity Subcut Folic Acid mg Regular Medium Intensity Subcut Ascorbic Acid mg Regular High Intensity Subcut Regular Insulin Infusion Other: Srinivas Arriola Dec 24, 2016 15:09
[2016-12-24] MEDS ORDERED: fentaNYL-PF 50 mCg/mL 2 mL Inj IVPUSH PRN ×2 (17:00→18:55)
--- NOTE | 2016-12-24 17:48 | PCM.HPANE ---
Patient Data Surgeon Admitting Provider:Juwan Red MD Attending Provider:Vj Brownlee MD Primary Care Physician:Elissa Arteaga DO Other Provider: Reason for Visit Abd Pain,Nausea,Vomitting,Hypercalcemia ABD PAIN,NAUSEA,VOMITTING,HYPERCALCEMIA Ht/WT & BMI Height (Feet): 5 Height (Inches): 5.00 Weight (Kilograms): 45.440 Body Mass Index 13.30 Allergies Coded Allergies: Iodinated Contrast Media - Oral and (Verified Allergy, Severe, Shortness of Breath,full body rash/redness, 12/18/16) Past Anesthesia History Anesthesia History: Denies:: Abnormal Airway, Anesthesia Reactions, Difficult Intubation, Fam Anesthesia Reaction, Fam Malignant Hypertherm, Malignant Hyperthermia Diabetes History Hx Diabetes?: No MRSA MRSA: No Medications Active Scripts Dicyclomine (Bentyl)10 Mg [id number] Mg PO QID #120 CAPSULE Prov:Karissa Vicente DO 10/04/16 Reported Medications Prednisone (PredniSONE)10 Mg Xecowu20 Mg PO QAM Ref 0 12/18/16 Adalimumab (Humira)40 Mg/0.8 Ml Pen.ij.kit40 Mg SQ u6bidof 12/05/16 Lorazepam 1 Mg Tablet1 Mg PO TID PRN For Anxiety Ref 0 12/05/16 Oxycodone (Roxicodone)5 Mg Amrydr62 Mg PO BID Ref 0 12/05/16 Fondaparinux Sodium (Arixtra)5 Mg/0.4 Ml Syringe5 Mg SUBQ HS 12/05/16 Multivit with Calcium,Iron,Min (Therapeutic M)1 Each Tablet1 Each PO DAILY 12/05/16 Ascorbate Calcium (Vitamin C)500 Mg Iaxoui612 Mg PO DAILY 11/06/16 Promethazine 12.5 Mg Tablet6.25 Mg PO Q6H PRN For Nausea 10/21/16 Discontinued Scripts Prednisone (PredniSONE)10 Mg Bevgul30 Mg PO DAILY #100 TABLET Ref 0 Prov:Daryl Aguilar MD 12/09/16 History History of ENT Problems?: No HEENT History: Denies:: Abnormal Airway Difficult Intubation Dysphagia Hearing Problem Sinus Problem Hx of Heart Problems?: Yes Cardiovascular History: Positive for:: Edema Heart Murmur Denies:: Cardiac Surgery Chest Pain Congestive Heart Failure Hypertension Irregular Heartbeat Pacemaker Thrombophlebitis Hx of Respiratory Problem?: No Respiratory History: Denies:: Asthma COPD Chest Surgery Emphysema Hemoptysis Pneumonia Tuberculosis Hx Neurologic Problems?: No Neurological History: Denies:: CVA Hx of GI Problems?: Yes Gastrointestinal History: Positive for:: Heartburn Denies:: Diverticulitis Gastroesphageal Reflux Gastrointestinal Bleeding Hepatitis Hiatal Hernia Rectal Bleeding Hx of Problems?: No Female Hx: Denies:: Currently Endometriosis Pelvic Inflammatory Problems with Breasts? Hx Musculoskeletal Problems?: Yes Musculoskeletal History: Denies:: Back Injury Joint Replacement Musculoskeletal Trauma Hx of Psycho/Social Problems?: Yes Psycho Social History: Positive for:: Anxiety Denies:: Bipolar Disorder Hx Depression Suicide Attempt Hx Surgeries?: Yes (total proctolectomy with end illeostomy ) Hx Any Other Health Problems?: Yes Other History: Positive for:: Hospitalization (Crohns/dehydration) Denies:: Cancer Thyroid Disease History Blood Transfusions: Positive for:: Blood Transfusions Denies:: Blood Transfuse Reaction Hx Diabetes: No Hx Alcohol Use: NoHx Substance Use: No Smoking Status: Never Smoker Have You Smoked inLast 12 mo: No Stop/Bang Treated for Sleep Apnea?: No Do You Have a CPAP Machine?: No S-Snoring: Do You Snore Loudly: No T-Tired: feel tired, fatigued: Yes O-Obsered: Observed not breath: No P-Blood Pressure: treated: No B- Body Mass Index > 35 kg/m2: No A- Age over 50: No N- Neck Large Circumference: No G- Gender Male: No FELIX Total Score: 1 FELIX Risk Assessment: Low Risk, <3 Yes Risk Assessment Category Category 1A: Patient has history of documented sleep apnea, and HAS NOT received any narcotic, sedative or anesthesia administration during this stay. Category 1B: Patient has history of documented sleep apnea, and HAS received any narcotic , sedative or anesthesia administration during this stay Category 2: Patient has SUSPECTED Obstructive Sleep Apnea, and HAS received any narcotic , sedative or anesthesia administration during this stay. Category 3: Patient has SUSPECTED Obstructive Sleep Apnea and HAS NOT received narcotic, sedative or anesthesia administration during this stay. Category 4: Outpatient in Procedural Areas with known sleep apnea or who screen positive for High Risk via the STOP/BANG questionnaire. Exam Exam Vital Signs Vital Signs Date Time Temp Pulse Resp B/P Pulse Ox O2 Delivery O2 Flow Rate FiO2 12/24/16 16:09 37.1 112 16 97/61 98 Room Air 12/24/16 14:56 37.4 115 16 104/69 99 Room Air 12/24/16 13:31 37.2 115 16 94/56 98 Room Air 12/24/16 11:12 38.2 12/24/16 10:55 122 12/24/16 10:31 37.8 125 16 95/60 98 Room Air General Appearance: Alert HEENT/AIRWAY: MP 1 Lungs: Clear to Auscultation Heart: Exam Unremarkable Meds/Labs/Diagnostics Admission Meds Current Medications Fluoxetine HCl (Prozac) 20 mg HS PO Last administered on 12/23/16 21:19; Start 12/23/16 at 21:00 Prednisone 10 mg 10 mg DAILYWM PO Last administered on 12/24/16 09:29; Start 12/24/16 at 08:00; Stop 12/24/16 at 12:07; Status DC Sodium Bicarbonate 100 meq/Sodium Chloride 1,100 ml @ 100 mls/hr Q11H IV Last administered on 12/24/16 15:38; Start 12/23/16 at 18:40 Magnesium Sulfate 4 gm/Premix 100 ml @ 33.333 mls/ hr ONCE ONCE IV Last administered on 12/24/16 09:28; Start 12/24/16 at 06:55; Stop 12/24/16 at 09:54 ; Status DC Sodium Chloride (Normal Saline) 1,000 ml @ 0 mls/hr Q0M ONCE IV Last administered on 12/24/16 09:28; Start 12/24/16 at 07:35; Stop 12/24/16 at 07:36 ; Status DC Nystatin 833992 unit 500,000 unit BID PO Last administered on 12/24/16 10:29; Start 12/24/16 at 09:35 Piperacillin Sod/ Tazobactam Sod/ Dextrose/Water (Zosyn 3.375 Gm Inj/D5W Minibag Plus) 50 ml @ 12.5 mls/hr Q8H IV Last administered on 12/24/16 11:40 ; Start 12/24/16 at 11:40 Hydrocortisone Sodium Succinate 100 mg 100 mg Q8 IVPUSH Last administered on 16:38; Start 12/24/16 at 12:05 Albumin Human 50 gm/Premix 200 ml @ 1 mls/min ONCE ONCE IV Last administered on 12/24/16 16:39; Start 12/24/16 at 13:40; Stop 12/24/16 at 16:59; Status DC Sodium Chloride (Normal Saline) 1,000 ml @ 0 mls/hr Q0M ONCE IV Last administered on 12/24/16 14:50; Start 12/24/16 at 14:40; Stop 12/24/16 at 14:43 ; Status DC Labs Test 12/18/16 16:30 12/21/16 04:36 12/22/16 10:28 12/22/16 11:03 Erythrocyte Sedimentation Rate 10mm/hr (0-32) Band Neutrophils % 0% (1-5) Urine HCG, Qualitative Negative (Negative) Urine Osmolality 646mOs/kH2O (250-1200) Urine Random Sodium < 10mEq/L Test 12/23/16 05:35 12/23/16 23:26 12/24/16 05:30 12/24/16 12:35 Total Bilirubin 0.2mg/dL (0.0-1.2) Aspartate Amino Transf (AST/SGOT) 23U/L (0-50) Alanine Aminotransferase (ALT/SGPT) 18U/L (0-32) Alkaline Phosphatase 130U/L (25-150) Total Protein 3.8g/dL (6.4-8.4) Albumin 1.0g/dL (3.4-5.0) White Blood Count 4.9th/mm3 (3.8-10.1) Red Blood Count 3.51mil/mm3 (3.90-5.20) Hemoglobin 8.1g/dL (12.0-15.6) Hematocrit 26.1% (35.0-46.0) Mean Corpuscular Volume 74.4fL (81-100) Mean Corpuscular Hemoglobin 23.1pg (27.0-35.0) Mean Corpuscular Hemoglobin Concent 31.0% (32.0-37.0) Red Cell Distribution Width 17.2% (12.3-15.4) Platelet Count 56bil/L (150-400) Neutrophils (%) (Auto) 78.7% (40-74) Lymphocytes (%) (Auto) 15.4% (14-46) Monocytes (%) (Auto) 4.7% (4-12) Eosinophils (%) (Auto) 0% (0-5) Basophils (%) (Auto) 0.4% (0-3) Sodium Level 133mEq/L (134-144) Potassium Level 3.8mEq/L (3.5-5.2) Chloride Level 103mEq/L (97-108) Carbon Dioxide Level 19mmol/L (18-29) Blood Urea Nitrogen 22mg/dL (6-20) Creatinine 0.60mg/dL (0.57-1.00) Estimat Glomerular Filtration Rate 167mL/min (>59) Glucose Level 72mg/dL (60-99) Calcium Level 5.9mg/dL (8.5-10.1) Phosphorus Level 2.4mg/dL (2.5-4.9) Magnesium Level 1.4mg/dL (1.6-2.6) Procalcitonin 0.32ng/mL (0.00-0.08) Urine Color Yellow (YELLOW) Urine Appearance Hazy (CLEAR,HAZY) Urine pH 6.0 (5.0-8.0) Urine Specific [place] 1.020 (1.003-1.035) Urine Protein Negativemg/dL (NEG,TRACE) Urine Glucose (UA) Negativemg/dL (NEGATIVE) Urine Ketones Negativemg/dL (NEGATIVE) Urine Occult Blood Negative (NEGATIVE) Urine Nitrite Negative (NEGATIVE) Urine Bilirubin Negative (NEGATIVE) Urine Urobilinogen Normalmg/dL (NORMAL) Urine Leukocyte Esterase Trace (NEGATIVE) Urine RBC 0-2/hpf (0-2) Urine WBC 6-10/hpf (0-5) Urine Epithelial Cells Occasional/hpf (NONE-MOD) Urine Crystals None seen (NONE SEEN) Urine Bacteria Moderate/hpf (NONE-FEW) Urine Hyaline Casts None/lpf (NONE) Urine Granular Casts None seen (NONE SEEN) Urine Waxy Casts None seen (NONE SEEN) Urine Red Blood Cell Casts None seen (NONE SEEN) Urine White Blood Cell Casts None seen (NONE SEEN) Urine Mucus Present (None Seen) Urine Trichomonas None seen (NONE SEEN) Urine Yeast None (NONE SEEN) Urinalysis Comment Transitional epi Urine Culture Reflexed Indicated Test 12/24/16 13:25 Lactic Acid Level 2.0mmol/L (0.4-2.0) Plan Impression Patient chart reviewed, patient interviewed and anesthestic plan with risks, benefits, and alternatives discussed, and informed consent obtained. ASA Physical Status: ASA2 Mod Systemic Disease Anesthetic Plan: MAC Bene/Risks/Altern/Consents: Yes HP Complete Prior to Induction: Yes Arpit Manuel MD Dec 24, 2016 17:48
[2016-12-24] MEDS ORDERED: Lactated Ringer's 1,000 ML IV ONE (18:25)
--- NOTE | 2016-12-24 18:40 | PCM.ANEP1 ---
Post Anesthesia Phase 1 PACU Phase 1 Assessment Date of Service: Dec 24, 2016 Vital Signs Vital Signs Date Time Temp Pulse Resp B/P Pulse Ox O2 Delivery O2 Flow Rate FiO2 12/24/16 16:09 37.1 112 16 97/61 98 Room Air 12/24/16 14:56 37.4 115 16 104/69 99 Room Air 12/24/16 13:31 37.2 115 16 94/56 98 Room Air 12/24/16 11:12 38.2 12/24/16 10:55 122 Level of Alertness: Awake, talking PERALTA's with Equal Strength: Yes Pain: Yes Pain Scale Score: 0 Nausea or Vomiting: No Lungs: Clear to Auscultation Dermatome Level: Full Sensation Summary DOING WELL NO ISSUES, VITALS STABLE Arpit Manuel MD Dec 24, 2016 18:40
[2016-12-24] MEDS ORDERED: Calcium GLUCOnate 10% 1 Gm/50 mL NS IV ONE ×2 (20:00)
[2016-12-24] MEDS ORDERED: Sodium Chloride LOK Flush 10 mL Syringe IVFLUSH PRN ×2 (20:10)
--- NOTE | 2016-12-24 20:13 | DRSVH ---
PROCEDURE: X-RAY CHEST ONE VIEW, PORTABLE ([id number]) INDICATIONS: CHECK LINE PLACEMENT TECHNIQUE: One view of the chest was acquired. COMPARISON: [facility], CR, XR CHEST 1VW (PORTABLE), 12/06/2016, 11:28. FINDINGS: Surgical changes and devices: Right central venous catheter with the tip projecting in the mid SVC. Lungs and pleura: No pleural effusions or pneumothorax. Bilateral perihilar consolidative opacities Mediastinum: Mediastinal contours appear normal. Heart size is normal. Bones and chest wall: No suspicious bony lesions. Overlying soft tissues appear unremarkable. IMPRESSION: Right centimeters catheter weighted tip projecting in the mid SVC. Bilateral perihilar consolidative opacities in keeping with aspiration and/or pneumonia. Please corre late clinically. Dictated by: Clifford Lino M.D. on 12/24/2016 at 20:10 Approved by: Clifford Lino M.D. on 12/24/2016 at 20:12
[2016-12-24] MEDS ORDERED: Albumin 25% 100 ML IV ONE (20:15)
[2016-12-24] MEDS: Total Parenteral Nutrition 1 BAG IV SCH (21:15)
--- NOTE | 2016-12-24 21:32 | ENDO ---
[address] [address] ENDOSCOPY PROCEDURE PATIENT: MAE FELIZ : 1985 MR#: [id number] ADMIT: 12/18/2016 JOB ID: [id number] DATE: 12/24/2016 PROCEDURE: Limited ileoscopy with stoma balloon dilatation under fluoroscopy. INDICATIONS: A 31-year-old female with complicated Crohn's. She has severe protein calorie malnutrition. She has stoma stenosis and has decompensated with increasing obstructive symptoms along with fever, distention, increased nausea today. CT continues to demonstrate dilated loops of small bowel. Repeat stoma dilatation is pursued. EQUIPMENT: A 5 mm diagnostic upper endoscope. SEDATION: Monitored anesthesia. Please see the separate anesthesia record. COMPLICATIONS: None identified. PROCEDURE IN DETAIL: After the risks and benefits were explained, written and verbal informed consent was obtained. The patient was brought into the endoscopy suite and placed into the prone position. Sedation was achieved. The stoma bag was removed. The area was kept clean with moist towels. There was a small amount of liquid debris able to escape after the stoma bag was removed. We used the diagnostic endoscope and with a small amount of manual pressure was able to pop the scope across the stenotic stoma into the neoterminal ileum. Again, the anatomy appeared quite unusual, and there were two directions we could direct the scope. One seemed to demonstrate a very stenotic opening suggestive of fistula to some other location. We did not traverse this. We found the obvious normal-appearing small bowel lumen and advanced the scope to perhaps about 20 cc upstream. We were then able to pass the CRE wire upstream, remove the scope, leave the wire across the stoma, then advanced the 10-12 CRE balloon across the stoma and dilate this at 1 minute intervals. We confirmed dilatation effect under fluoroscopy and there was a small amount of waist seen with each sequential dilatation step. The patient seemed to tolerate this quite well. We then removed the dilator and wire the easy flow of intestinal content was noted. We again kept the area clean with a moist clean towel. The patient was awakened from anesthesia and then transported to the CCU in stable condition. FINDINGS: As above. ENDOSCOPIC DIAGNOSES: 1. Severe stomal stenosis. 2. 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 3. Successful stomal dilatation to 12 mm. RECOMMENDATIONS: 1. After again cleaning the skin, application of the ostomy bag is to be performed in the ICU. 2. Continue full liquid diet. 3. As long as there are no apparent hemorrhagic complications, I think it would be fine to continue the fondaparinux this evening. 4. Dr. Abbott is planning on placing the right IJ for central access this evening and once this is in position, TPN should immediately be initiated.
--- NOTE | 2016-12-24 23:28 | PCM.PROC ---
Procedure Note Date of Service: Dec 24, 2016 Pre Procedure Diagnosis: Sepsis, hypotension, severe malnutrition. Post Procedure Diagnosis: Sepsis, hypotension, severe malnutrition. Procedure: Central venous catheterization Provider and Lead Generation Specialist: Resident: Purnima Recio Attending: Srinivas Abbott Indication for Procedure: Hypotension, TPN Procedural Analgesia: 1 mg Ativan IV 25 mcg Fentanyl IV Procedure Details: A time-out was completed verifying correct patient, procedure, site, positioning , and special equipment if applicable. The patient was placed in a dependent position appropriate for central line placement based on the vein to be cannulated. The patients right neck was prepped and draped in sterile fashion. 1% Lidocaine was used to anesthetize the surrounding skin area. A triple lumen 7 -Urdu Cordis catheter was introduced into the the internal jugular vein using the Seldinger technique and under ultrasound guidance. The catheter was threaded smoothly over the guide wire and appropriate blood return was obtained. Each lumen of the catheter was evacuated of air and flushed with sterile saline. The catheter was then secured in place to the skin and a sterile dressing applied by IV therapy RN. Perfusion to the extremity distal to the point of catheter insertion was checked and found to be adequate. Dr. Abbott was present for the entire procedure. Estimated Blood Loss: 5 cc The patient tolerated the procedure well and there were no complications. Post Procedure Plan: Chest xray to confirm placement and position and rule out pneumothorax. Attending Statement I was personally present and immediately available throughout the entire procedure and agree with the description of the procedure above. Purnima Recio DO Dec 24, 2016 23:28 Srinivas Abbott MD Dec 27, 2016 18:33
[2016-12-25] VITALS (13 sets, daily range): BP systolic 94–138; BP diastolic 66–92; PULSE 55–105; RESP 14–23; O2SAT 94–100
[2016-12-25] MEDS: 0.9% Sodium Chloride 1,000 ML IV SCH ×4 (00:41→16:58)
[2016-12-25] MEDS: Hydrocortisone 50 mg/mL 2 mL Inj IVPUSH SCH ×3 (00:41→16:42)
[2016-12-25] MEDS: Piperacillin-Tazo 3.375 Gm Inj 3.375 GM in Dextrose 5% Minibag Plus 50 ML IV SCH ×2 (03:46→11:41)
[2016-12-25 04:32] LABS: BASOPHILS % (AUTO) 0.2 % (0-3); EOSINOPHILS % (AUTO) 0 % (0-5); MONOCYTES % (AUTO) 2.6 % (4-12); Mean Corpuscular Hemoglobin 23.2 pg (27.0-35.0); Mean Corpuscular Volume 77.2 fL (81-100); NEUTROPHILS % (AUTO) 83.5 % (40-74); Platelet Count 56 bil/L (150-400)
[2016-12-25] MEDS ORDERED: Furosemide 10 mg/mL 2 mL Inj IV ONE ×2 (04:45)
[2016-12-25 04:59] LABS: Magnesium 2.2 mg/dL (1.6-2.6); Phosphorus 2.6 mg/dL (2.5-4.9)
[2016-12-25] MEDS ORDERED: 0.9% Sodium Chloride 250 ML ONE ×2 (06:28→10:32)
[2016-12-25] MEDS: LORazepam 1 mg Tablet PO PRN (07:57)
[2016-12-25] MEDS: predniSONE 20 mg Tablet PO SCH (08:30)
[2016-12-25] MEDS ORDERED: Furosemide 10 mg/mL 4 mL Inj IVPUSH ONE ×3 (08:30→19:55)
[2016-12-25] MEDS ORDERED: Albumin 25% 50 GM in IV Premix 1 EACH IV ONE ×2 (08:30→19:55)
[2016-12-25] MEDS ORDERED: KCl 40 mEq/100 mL (CENTRAL) 20 MEQ in IV Premix 1 EACH IV ONE (08:35)
--- NOTE | 2016-12-25 08:43 | PCM.PNMED ---
Subjective Date of Service Dec 25, 2016 Subjective GASTROENTEROLOGY PROGRESS NOTE Yesterday and overnight, patient decompensated, developing severe abdominal pain , distention, and fever. Stat blood cultures and empiric antibiotics were obtained. R central access was also placed to start TPN. Today, she was transferred to CCU, remaining tachycardic, weak, and what appears to be fluid overload based on CXR review. Morning labs revealed a decrease in HH to 6.1/20.3. 2U pRBC urgently ordered for transfusion. Stat CXR revealed bilateral pleural effusions, R > L, extending from bases to mild- castillo. She was extremely lethargic at time of examination, stating extreme fatigue. Not attempting po intake. States some abdominal pain, but she may be too somnolent to fully assess and convey her sensations. Exam Vital Signs Vital Sign - Last Date Time Temp Pulse Resp B/P Pulse Ox O2 Delivery O2 Flow Rate FiO2 12/25/16 07:42 104 12/25/16 06:52 16 104/84 12/25/16 03:48 36.4 95 Nasal Cannula 2.00 Intake and Output 12/24/16 12/24/16 12/25/16 Cumulative From/Thru 15:00 23:00 07:00 12/18/16 14:54 - 12/25/16 05:27 Intake Total 4400 ml 26718 ml Output Total 1630 ml 725 ml 25129 ml Balance 2770 ml -725 ml 60569 ml Intake Oral 600 ml 8270 ml IV Total 3800 ml 11457 ml Output Urine Total 675 ml 275 ml 4020 ml Stool Total 955 ml 450 ml 9905 ml Urine/Stool Mix 700 ml Exam General: Somnolent, no acute distress; resting in bed Head: Atraumatic; cushinoid-facies; R IJ in place with bandages clean/dry/ intact Nose: Mucous Membr Moist/[place]; NC in place without erythema at nares Mouth: Mucous Membr dry Chest & Lungs: Bilateral crackles at bases; bilateral wheeze upper castillo Cardiovascular: Tachycardic rate at time of examination, approx 110 Pulses: Radial (equal and bilateral) Abdomen: Mildly tender; ostomy site free of erythema; output liquid yello- brown stool, no evidence edy blood Extremities: Warm; bilateral lower extremity edema extending from dorsum to midcalf; healing linear abrasion on left tibial crest Skin: Warm and dry Neurological: Difficult to assess secondary to somnolence, but does awaken and does appropriately respond to commands and questioning Psych: Appropriate mood, affect, and responses to questioning. Limited insight and judgment based on history of noncompliance Lab and Diagnostics Result Diagram: 12/25/16 0355 12/25/16 0355 X-Rays, CTs and MRIs CT ABDOMEN AND PELVIS WITHOUT CONTRAST IMPRESSION: 1. Free air is not identified. 2. Markedly distended colon suggesting distal colonic obstruction. Rectal tube may be of benefit. 3. Question of low-density stones versus particles of air in the gallbladder. Ultrasound is suggested. ADDENDUM: Additional information is that the patient has had a colectomy. The distended loops therefore must be small bowel. In addition there is an ileostomy rather an ileal loop into the right lower quadrant. In the operative from this is reportedly fairly good. This would indicate that C. dilated small bowel loops are related to a chronic low-grade obstruction or a relatively acute high-grade obstruction. No wall thickening or air in the tsai of the dilated loops is seen. Since the patient does not have obstructive symptoms clinically this is likely to be a distended loops from chronic partial low grade obstruction of a small bowel loop. Dictated by: Esteban Cabrera M.D. on 12/18/2016 at 18:44 US ABDOMEN, LIMITED IMPRESSION: Multiple stones in the gallbladder but no free air or changes to indicate acute cholecystitis. Dictated by: Esteban Cabrera M.D. on 12/18/2016 at 19:49 X-RAY ACUTE ABDOMINAL SERIES IMPRESSION: Changes are consistent with partial or early small bowel obstruction. Dictated by: Esteban Cabrera M.D. on 12/18/2016 at 20:37 Assessment & Plan GASTROENTEROLOGY PROGRESS NOTE Ms. Terra Beauchamp is an extremely pleasant 31 year old woman that recently moved to the [facility] from the [facility] with a complex history of Crohn 's disease s/p total proctocolectomy with end ileostomy performed at [facility] in [place], [place]. She is on chronic glucocorticoids with Humira therapy, multiple prior obstructions/near obstructions near ostomy, recurrent flares, and recent left UE DVT secondary to PICC placement for TPN, who presented to the ED 12/18/2016 with acute on chronic diffuse abdominal pain, vomiting, and nausea. Reason for consult: Established GI patient with complex GI history that is the underlying etiology of current symptoms and recurrent admissions CT A/P wo/contrast 12/18: No free air; low density stones vs free air in gallbladder; dilated loops small bowel likely related to chronic low-grade obstruction. LUE doppler 12/23: Pre-Garrett report, not finalized: The basilic vein is not identified otherwise no definite venous thrombosis seen. CT A/P wo contrast 12/24: Suboptimal examination due to lack of oral and intravenous contrast. There is total colectomy and right lower quadrant ileostomy. Mild concentric thickening of a short segment of small bowel loop is noted in the right lower quadrant. There is decreased overall small bowel distention compared to 12/18/2016. A small amount of free peritoneal fluid, which is new.Small bilateral pleural effusions with bibasilar consolidation or atelectasis. Cannot rule out bibasilar pneumonia.Diffuse body wall edema and subcutaneous fluid collection with pockets of subcutaneous gas. Cannot rule out postoperative wound infection.There is mesenteric and retroperitoneal lymphadenopathy, which is nonspecific. 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 - Adrenal insufficiency secondary to chronic steroid use - LUE DVT secondary to PICC placement, on fondaparinux - Severe protein/calorie malnutrition, BMI 15 on admission, s/p RIJ placement for TPN - CT showing chronic low-grade obstruction. However clinically she is passing gas and passing fecal material. - Abdominal pain; chronic. Likely secondary to chronic, low grade stenosis and po attempts for maximal intake to maintain nutrition Plan/Recommendations - Diuresis to minimize fluid retention - Empiric antibiotics- Zosyn therapy initiated; continue - Continue stress dose steroids- IV - Monitor HH; trend q6h - Diet: full liquids only at this time - Remind patient and mother to provide [facility] records to [facility]/GI - Recommend continued PT evaluation - Next Humira due: 12/26; patient states she will need Rx (previous dose 12/12) - Must be provided by patient/family; not stocked in hospital pharmacy - Has appt with Dr. Dominic Zaidi at on 12/31 Patient has history of noncompliance, and removed Dobhoff the day of previous discharge while she was on her way home. Dobhoff was also removed while she was going home after the admission prior to that. Nutrition is essential for her, as she likely requires a complete revision, but her nutritional status is too poor to promote adequate healing. Previous discussions have included SNF. She is not a PEG candidate, as it would likely be more detrimental than beneficial especially because of the poor nutritional status indicated by low albumin. This is have significant impact on wound healing. Tube feeds were anticipated to last at least three months. Due to the history of noncompliance with Dobhoff and need for surgical intervention, TPN is next best choice. This does not come without risk, as her previous TPN site led to a DVT. She is still receiving anticoagulation at this time. Risks of TPN explained to patient, and because her need for nutrition is becoming increasingly critical, it is pursued at this time. TPN carries significant risk of infection, especially with her history of immunosuppression secondary to intermediate steroids and now Humira use. On 12/24, she was urgently taken to endoscopy for another dilation of stoma, and then transferred to CCU for continued care. Total time: 60 minutes VTE Prophylaxis: SCDs, Other (On arixtra ) VTE Mechanical Devices: Intermittant Pneumatic CD Resuscitation Status: CPR: Attempt Resuscitation Attending Statement Patient seen and examined this morning. Was at bedside with Dr Abbott. Agree with assessment and plan as above by Dr Arteaga. Patient tolerated the stoma dilatation yesterday and actually had substantial relief of abd distension/ pain. Stoma bag has filled with brown liquid/semiliquid debris. No melena or red blood in the bag. She had the right IJ line placed following the GI intervention and TPN was finally started. Overnight, had significant pulmonary decompensation. Has had weak cough and felt "congested" in chest. Xrays from this morning suggested significant fluid overload. Procalcitonin levels were elevated but trending down. Afebrile this morning. Ab was soft and non tender with the above described contents. Hb dropped as well. Was started on blood transfusion. There certainly may be an element of pneumonia superimposed here and i agree with broad spectrum antibiotic that was started yesterday following her temp elevation. However, with the drop in Hb, but no demonstrable GI bleeding, i suspect this is largely a dilution effect and pulmonary symptoms/ findings suggest overload. Agree with moving to ICU for aggressive diuresis and pulmonary care. Elissa Arteaga DO Dec 25, 2016 08:43 Kirby Valdez MD Dec 25, 2016 13:48
[2016-12-25] MEDS: Nystatin 100,000 Unit/mL 5 mL Suspension PO SCH ×2 (09:00→21:43)
--- NOTE | 2016-12-25 09:06 | DRSVH ---
PROCEDURE: X-RAY CHEST ONE VIEW, PORTABLE ([id number]) INDICATIONS: SOB, crackles TECHNIQUE: One view of the chest was acquired. COMPARISON: [facility], CR, XR CHEST 1VW (PORTABLE), 12/25/2016, 5:16. FINDINGS: Surgical changes and devices: Stable position right IJ CVL. Lungs and pleura: Diffuse, widespread bilateral pulmonary interstitial and air space opacities are p resent with no significant change from prior examination. Small pleural effusions persist. No pneum othorax. Mediastinum: Mediastinal contours appear normal. Heart size is normal. Bones and chest wall: No suspicious bony lesions. Overlying soft tissues appear unremarkable. IMPRESSION: 1. Pulmonary edema and/or diffuse bilateral pneumonia similar to prior examination. 2. Small pleural effusions. Dictated by: Jimmy Eubanks RR Interpreted: Keeley Bethea MD on 12/25/2016 at 9:05 Transcribed by: LAUREN on 12/25/2016 at 9:06 Approved by: Keeley Bethea MD, PhD on 12/25/2016 at 16:50
--- NOTE | 2016-12-25 10:41 | DRSVH ---
PROCEDURE: X-RAY CHEST ONE VIEW, PORTABLE ([id number]) INDICATIONS: ?PNA TECHNIQUE: One view of the chest was acquired. COMPARISON: [facility], CR, XR CHEST 1VW (PORTABLE), 12/24/2016, 19:35. FINDINGS: Surgical changes and devices: Right IJ CVL unchanged in position. Lungs and pleura: Diffuse, widespread bilateral pulmonary interstitial and air space opacities are p resent increased from prior examination. Small basilar pleural effusions. Mediastinum: Mediastinal contours appear normal. Heart size is normal. Bones and chest wall: No suspicious bony lesions. Overlying soft tissues appear unremarkable. IMPRESSION: Worsening edema and/or diffuse bilateral pneumonia. Dictated by: Jimmy Eubanks RRA Interpreted: Keeley Bethea MD on 12/25/2016 at 10:41 Transcribed by: LAUREN on 12/25/2016 at 10:41 Approved by: Keeley Bethea MD, PhD on 12/25/2016 at 16:51
[2016-12-25] MEDS: Ondansetron 2 mg/mL 2 mL Inj IVPUSH PRN (11:08)
--- NOTE | 2016-12-25 11:08 | PCM.PHAPRO ---
Progress TPN PARENTERAL NUTRITION ORDERS 2 24-Dec-16 Standard Hang Time: 2100 Substrates Total kcal: 651 AMINO ACIDS 45 g DEXTROSE 65 g Total Volume (mL): 1100 LIPIDS 25 g Sterile Water for Injection QS mL To Infuse Over (hrs): 24 Total Volume 1100 mL At at a rate of (mL/hr): 46 Additives Sodium Chloride 90 mEq "typical" daily requirements Sodium Acetate 30 mEq Sodium 50-120mEq Potassium Chloride 45 mEq Potassium 60-120mEq Potassium Phosphate 35 mEq Phosphate 20-40mEq Calcium Gluconate 4.5 mEq Magnesium 8-32mEq Magnesium Sulfate 8 mEq Calcium 9-22mEq Acetate* 80-120mEq Chloride* 80-120mEq Regular Insulin units *Depending on acid-base status Famotidine mg Multivitamins 1 std dose Insulin Regimen Trace Elements 1 std dose none Thiamine mg Regular Low Intensity Subcut Folic Acid mg Regular Medium Intensity Subcut Ascorbic Acid mg Regular High Intensity Subcut Regular Insulin Infusion Other: Special Instructions: To be infused via central line only. For delay or inturruption of TPN contact the pharmacist for alternative replacement solution. Signature Date: MAE FELIZ 0 [facility] Surya Petersen Dec 25, 2016 11:08
--- NOTE | 2016-12-25 14:40 | CONS ---
[address] [address] CONSULTATION REPORT PATIENT: MAE FELIZ : 1985 MR#: [id number] ADMIT: 12/18/2016 JOB ID: [id number] DATE OF SERVICE: 12/25/2016 INFECTIOUS DISEASE CONSULTATION: I thank Dr. Abbott for this timely consult. REASON FOR CONSULTATION: Fever and possible infection in a patient with Crohn disease and advanced malnutrition. HISTORY OF PRESENT ILLNESS: The patient is an extraordinarily unfortunate 31-year-old woman who was diagnosed with inflammatory bowel disease as a teenager. She struggled with this for many years and in 2013 underwent what was thought to be definitive surgery at [facility] when she had a total colectomy which included resection of the anus. An ileostomy was, of course, formed at that time. Since then, she has struggled with nutritional issues as well as the development of fistulas or fistulae related to the stoma as well as stenosis of the ileostomy stoma at various times. She is felt to have Crohn disease rather than ulcerative colitis due to this extensive involvement of the small bowel with fistulization and recurrent stenosis of the stoma. She recently moved to this area from the [facility] where she had been living with one of her parents. Since her move here, she has been followed by the GI physicians here at [facility], who treated her with steroids as well as Humira on an ongoing basis. Recently her steroids were decreased somewhat. During the time she has been here in the local area, she has been admitted at least three times in the last three months. The first of these admissions appears to have been in September 2016 when she was admitted with a flare of Crohn's and a possible periostomy fistula. She was also noted to be profoundly malnourished and to have very significant anemia. Subsequently she was admitted later in October 2016 for what turned into quite a long hospitalization. During that hospital stay, she was found to have Norovirus, continued anemia, a left upper extremity DVT due to a central line or due to a PICC line and ongoing malnutrition. Her next admission was in November which would constitute her third month in a row in this hospital. That admission revolved around stomal stenosis and an exacerbation of her chronic Crohn's with electrolyte fluid and protein calorie malnutrition related issues. There were also concerns about possible sepsis during that November admission. Most recently, she was admitted in early December and was finally discharged December 09 with more problems with ostomy stenosis as well as possible sepsis, lactic acidosis, adrenal insufficiency and severe malnutrition. Her BMI, at that point, was reportedly 12.5. She was admitted for the fourth time in the last three months on December 18, one week ago. That admission was triggered by abdominal pain around the ileostomy as well as some nausea, chills and an inability to keep down food. Since the admission a week ago, she has been treated for her abdominal pain, and she has been received blood products for a significant anemia as well as evaluation of electrolytes and other parameters. 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 Just prior to her ileostomy, she had a temperature recorded of 38.1 which has been her only temperature of this hospital stay. The patient tells us she has had some chills but no subjective fever or sweats. ID consultation is requested this morning regarding whether the patient can go ahead and get a PICC line given that she had a fever yesterday and their concerns about possible infection. The patient tells us that her overall course of the past few months has been one of decline, that she has gradually gotten weaker and has had more problems with nutrition. There was an attempt to feed her by a Dobbhoff tube but the patient pulled it out herself as part of the anxiety attack and due to discomfort. She was also fed at times through a PICC line but this was discontinued because of a DVT. More recently, she has been able the eat some but this seems to have been inadequate. Today, she tells us she does not have a significant headache nor does she have sore throat. As mentioned, she has subjective chills but no fevers or sweats. She notes minimal cough which is dry and some degree of shortness of breath which may be anemia related. She has pain around her stoma which seems like in review of her records to be a fairly constant complaint. She has no urinary symptoms. The patient tells me that at times in the past she has had fevers which have been solely due to her Crohn disease. PAST MEDICAL HISTORY: 1. Crohn disease. a. Status post colectomy 2013. b. High ileostomy output. c. Recurrent stenoses of the ostomy. d. Chronic steroid therapy, recently stopped. e. TNF inhibitor therapy ongoing. 2. Profound malnutrition. 3. Electrolyte and mineral deficiencies and disorder. 4. History of left upper extremity DVT secondary to PICC. 5. Anxiety. 6. Iron deficiency anemia. 7. History of tympanoplasty. SOCIAL HISTORY: The patient is a nonsmoker, nondrinker. She was living with her father in [place] until recently when she moved to live with her mother in this area. She previously lived for a few months in [place] though it is a little unclear exactly when she was there. As noted, she is a nonsmoker, nondrinker. FAMILY HISTORY: Negative for TB in any first-degree relative. Mother has celiac disease. Grandfather with colon cancer. REVIEW OF SYSTEMS: Was done. The patient denies headache or visual change. No sore throat. There is trouble swallowing. She has some minimal shortness of breath and a dry cough. No significant chest pain. She does have significant abdominal pain especially around the ileostomy. She has nausea but no vomiting at this point. She has no anus. Therefore, obviously no diarrhea and she notes she has had output from the ileostomy since the dilatation yesterday. She is not having urgency, frequency or dysuria. She notes her legs are chronically swollen. She states that until a couple days ago she could walk but she is now too weak to walk. Remainder of the review of systems is negative. PHYSICAL EXAMINATION: Reveals an afebrile woman. Temperature 36.5, pulse 64, respiratory rate 20, blood pressure 122/77. She is saturating 100% on 3 L. Examination of the head reveals no evidence of trauma. The eyes with conjunctival pallor but no scleral icterus. The frontal sinuses seem tender bilaterally to palpation. The maxillary sinuses do not. Oral cavity is notable for shallow ulcerations on the buccal mucosa. No pharyngitis or thrush is seen. The neck is supple without adenopathy. A new right neck IJ has been placed. There is no cervical adenopathy. The neck is supple. Lungs with fair air movement bilaterally and I do not hear much except perhaps a few crackles at the bases. Cardiac tones regular rate and rhythm without murmur. Abdomen is thin with ileostomy present on the right. There is diffuse abdominal tenderness perhaps more on the left than the right. She does have hypoactive but present bowel tones. She does not have a Taylor. No suprapubic tenderness is noted. The extremities are edematous. The lower extremities are edematous all the way up to and involving the thighs. No cellulitis is seen. Peripheral pulses are intact and the extremities are warm. The patient is diffusely weak with strength probably 3+/5 throughout all muscle groups. No neuropathy is noted. Her mental status is clear though her speech is a little weak and she does appear uncertain about some historical details, but in general, she is alert and oriented. LABORATORIES: Include white count 4300, platelet count 56,000. The differential is relatively normal except 83% segs. Creatinine today 0.41, calcium low at 6.4. LFTs are normal. Procalcitonin is stable at 0.24. Note that her procalcitonin has basically been 0.3 back on December 05 and then yesterday and then today with really no variation of significance. C-reactive protein is 4.4 a couple weeks ago. It has not been repeated. Urinalysis 6-10 white cells. QuantiFERON Gold has been done and is negative. Hepatitis B is negative and these studies were done back in September when she first presented here. More cultures from here include a MRSA screen which is negative, urine which grew mixed marissa. Stool PCR negative. Back on a prior admission, December 05, blood cultures were negative. Back on the October admission, blood cultures were negative. Also on the October admission, she had Norovirus in stool. IMAGING: Includes chest x-rays which were reviewed in detail. These included chest x-rays, which showed pulmonary edema or diffuse interstitial infiltrates. IMPRESSION: This is an extraordinarily unfortunate woman who moved to this area late in 2015 and has already been admitted four times to this hospital in the last four months regarding complications of her Crohn's with the attendant ileostomy stenosis as well as malnutrition. At this point, she is critically ill with anasarca due to her ongoing very poor nutritional status. She was admitted with basically abdominal pain and yesterday she underwent endoscopy involving the distal ileum and had a dilatation of her stenotic ileostomy output site. Shortly thereafter, she developed increasing abdominal pain, and still tachycardia and periods of hypotension requiring IV fluids. She had only a single fever, however, and this was actually prior to her procedure, and was only 38.1. Aside from that, she has been afebrile. Her procalcitonin is at her baseline which is about 0.3 and we know that from prior values this admission as well as during the last admission. Her white count is normal and right now she is not hypotensive nor requiring any vasopressors. It would appear that at least some of her tachycardia and hypotension was due to progressive anemia as well as dehydration. Though the patient is extremely high risk for severe infection due to her profound malnutrition as well as her TNF inhibitors and recent steroids, I see little to indicate acute infection at this time. At this point, we have negative cultures including a MRSA screen, urine culture and a stool assay and little to suggest focal infection. Her pulmonary infiltrates could, of course, represent an ominous opportunistic process such as pneumocystis or Aspergillus or histo even given her residence in [place], but I see little to indicate that. At this point, we know she has a negative QuantiFERON Gold and no risk for TB. RECOMMENDATIONS: 1. I would go ahead and discontinue the Zosyn as I see little evidence for infection. 2. We already have a QuantiFERON Gold. I would do a histo urine antigen as this patient is from a histo endemic area, and it would be important to exclude that possibility going forward. 3. Will add a Fungitell. 4. A crypto antigen will be added. 5. Should the patient develop progressive shortness of breath, fevers or increasing infiltrates, we would need to look for Pneumocystis, but at this point, I think that is unlikely. 6. I think the patient is cleared from my point of view for the placement of any central line such as PICC lines, Groshong or Rodriguez such may be required for nutrition. 7. Will continue to follow this case closely with you. 8. Total time spent on this case is greater than 70 minutes.
[2016-12-25] MEDS ORDERED: KCl 20 mEq/100 mL IV Premix (K 3 - 3.7 & Cr 2.1 - 2.9) IV ONE (15:25)
[2016-12-25] MEDS ORDERED: Albumin 25% 25 GM in IV Premix 1 EACH IV ONE (17:15)
--- NOTE | 2016-12-25 20:06 | PCM.PNMED ---
Subjective Date of Service Dec 25, 2016 Subjective Overnight patient was transferred to the intensive care unit for acute hypoxic respiratory failure, as well as acute blood loss anemia. She had a central line placed, and received 2 units of packed red blood cells, this morning this increased her hemoglobin to greater than 10. She is still very tired, answers 1 word responses. States that she is cold and has some pain in her belly. No chest pain, no shortness of breath. Exam Vital Signs Vital Sign - Last Date Time Temp Pulse Resp B/P Pulse Ox O2 Delivery O2 Flow Rate FiO2 12/25/16 16:30 36.5 72 19 131/82 99 Nasal Cannula 3.00 Intake and Output 12/24/16 12/24/16 12/25/16 Cumulative From/Thru 15:00 23:00 07:00 12/18/16 14:54 - 12/25/16 05:27 Intake Total 4400 ml 58821 ml Output Total 1630 ml 725 ml 50560 ml Balance 2770 ml -725 ml 85039 ml Intake Oral 600 ml 8270 ml IV Total 3800 ml 67230 ml Output Urine Total 675 ml 275 ml 4020 ml Stool Total 955 ml 450 ml 9905 ml Urine/Stool Mix 700 ml Exam General: Thin cachectic Female who appears more lethargic/somnolent while laying in bed this morning. HEENT: PERRLA, Enlarged bright red tongue, dry oral mucosa with diffuse white webbing. Symmetrically edematous cheeks Chest & Lungs: Moderate diffuse rales bilaterally, no wheezing, normal resp effort Cardiovascular: bradycardic, regular rhythm, no murmurs noted Pulses: Weak radial pulses bilaterally Abdomen: Tender to palpation diffusely although most tender in the LLQ, Non- distended, No guarding, No rebound, Ileostomy in place, stoma free of erythema Extremities: Cool, Severe bilateral pitting edema from feet up to both knees. Skin: Dry cracking skin diffusely on back and extremities, early pressure ulcer changes on sacrum and iliac. Neurological: Grossly intact, no focal weakness Psych: Answers appropriately, somnolent. Lab and Diagnostics Result Diagram: 12/25/16 1430 12/25/16 1430 X-Rays, CTs and MRIs Portable chest x-ray performed December 22 IMPRESSION: 1. Pulmonary edema and/or diffuse bilateral pneumonia similar to prior examination. 2. Small pleural effusions. Dictated by: Jimmy Eubanks [facility] Interpreted: Keeley Bethea MD on 12/25/2016 at 9:05 CT ABDOMEN AND PELVIS WITHOUT CONTRAST IMPRESSION: 1. Free air is not identified. 2. Markedly distended colon suggesting distal colonic obstruction. Rectal tube may be of benefit. 3. Question of low-density stones versus particles of air in the gallbladder. Ultrasound is suggested. ADDENDUM: Additional information is that the patient has had a colectomy. The distended loops therefore must be small bowel. In addition there is an ileostomy rather an ileal loop into the right lower quadrant. In the operative from this is reportedly fairly good. This would indicate that C. dilated small bowel loops are related to a chronic low-grade obstruction or a relatively acute high-grade obstruction. No wall thickening or air in the tsai of the dilated loops is seen. Since the patient does not have obstructive symptoms clinically this is likely to be a distended loops from chronic partial low grade obstruction of a small bowel loop. Dictated by: Esteban Cabrera M.D. on 12/18/2016 at 18:44 US ABDOMEN, LIMITED IMPRESSION: Multiple stones in the gallbladder but no free air or changes to indicate acute cholecystitis. Dictated by: Esteban Cabrera M.D. on 12/18/2016 at 19:49 X-RAY ACUTE ABDOMINAL SERIES IMPRESSION: Changes are consistent with partial or early small bowel obstruction. Dictated by: Esteban Cabrera M.D. on 12/18/2016 at 20:37 Assessment & Plan Terra Beauchamp is an 31 year old woman that recently moved to the [facility] from the [facility] with a complex history of Crohn's disease s/p total proctocolectomy with end ileostomy performed at [facility] in [place], [place]. She is on chronic glucocorticoids with Humira therapy, multiple prior obstructions/near obstructions near ostomy, recurrent flares, and recent left UE DVT secondary to PICC placement for TPN, who presented to the ED 2016 with acute on chronic diffuse abdominal pain, vomiting, and nausea. Hospital day #8 on hospital day 7 patient developed acute hypoxic respiratory failure and was transferred to the ICU, day 2 #Acute hypoxemic respiratory failure, not present on admission, improved Patient began having difficulty breathing and required supplemental oxygen, 2 L nasal cannula. Most likely due to fluid overload evidenced on x-ray has diffuse edema Improvement with 40 mL of IV Lasix Additional 40 mL of IV Lasix this p.m. 50 albumin transfusion # Acute anemia, not present on admission, improved Most likely delusional due to the numerous liters of fluid she has received 2 units of packed red blood cells were transfused, this in conjunction with diuresis has brought her hemoglobin to greater than 10. Continue to monitor #Fever, acute - resolved Has not reoccurred since transfer to the intensive care unit Patient was noted to develop a fever this morning. She continues to be hypotensive despite over 6 liters of fluids yesterday. She is having worsening abd pain, especially in the LLQ. Patient is likely septic and will undergo a sepsis workup. Source is likely her abdomen. Concerns for abscess formation and ischemia Blood cultures ordered, CT Abd pelvis without contrast due to allergy, WIll initiate empiric antibiotics after blood cultures drawn. Will continue hydrating copiously. Per Infectious Disease's Note: Zosyn has been discontinued. Histo urine antigen ordered given her exposure to this to endemic area. Fungitell ordered, crypto antigen has been added, possible pneumocystis possible, but not considered unless progressive shortness of breath, fevers, or increasing infiltrates will, continue to monitor. Placement of a PICC line is recommended, mcc, a Groshong or Rodriguez for additional nutrition. #Hypovolemic hyponatremia, chronic, present on admission - resolved. -Has been increasingly tachycardic and hypotensive as a result of her hypovolemic state secondary to High Output Ileostomy and poor absorption -- Patient is now eunatrimic, normotensive, and heart rate under control --Will continue IV NS and IV NS with bicarb through today and reassess electrolyte status in the PM. #Thrombocytopenia, acute - She reports that her edematous face and feet coincided with initiation of Prednisone and Arixtra. She has been slowly tapering off of Prednisone, but the edema of her face continues to worsen. - She also is developing thrombocytopenia with her platelets continuing to decrease to 56 today. Part of the decrease may be dilutional with all the increased fluids, but her platelet levels have been trending downwards. - Will continue to taper off Prednisone slowly and continue to evaluate for source of thrombocytopenia. #Abdominal pain in the setting of Crohn's disease s/p total proctocolectomy with RLQ ileostomy, acute, present on admission -She has been complaining of generalized Abd pain, worse in the LLQ. Pain is associated with nausea and vomiting. Likely due to strictures and obstruction -Continue to encourage small high quality meals. -Continue immediate release Oxycodone. D/William IV Dilaudid. -Continuing to have generalized abd pain. May require repeat imaging and NGT decompression if obstruction is worsening. # Early or partial small bowel obstruction, acute, present on admission -Most recent abdominal imaging shows evidence of developing small bowel obstruction and other strictures. She is still having high ostomy output, although mostly just liquids. -GI consulted, will continue to follow, appreciate time and input. -Continue IVF while having poor PO intake -Surgery consulted and following. Appreciate time and input. # Crohn's disease with RLQ high output Ileostomy with Severe protein/calorie malnutrition, POA - Continue patient's home Humira and taper off of Prednisone - Patient not a PEG tube candidate per GI but certified surgical assistant believe this would be preferable option. - She has previously been noncompliant with Dobhoff due to discomfort and anxiety. - Patient would prefer TPN, but will consult with GI and Surgery for final recommendation. She is now anticoagulated on Fondaparinux due to UE DVT in October after PICC line placement. She is to continue the Fondaparinux for 6 months. Monitor H&H every 6 hours, continue stress dose of steroids IV Next Humira is due tomorrow, December 26, this is not stocked by our pharmacy and family will need a prescription. - plan for PICC line placement tomorrow # Hypochromic microcytic anemia, likely iron deficiency, chronic, present on admission -Due to poor oral intake and poor nutritional status -Consider iron supplementation as outpatient # Anxiety and Depression, POA Patient's anxiety and depression are related to disease condition but creating significant morbidity none the less. Will continue Klonopin 0.5mg BID and up to FLuoxetine 20mg daily #Likely Oral Candidiasis, acute Secondary to Prednisone usage. Will plan to tx with Nystatin Swish and spit Pain Evaluation: Adequate Pain Control VTE Prophylaxis: SCDs, Other (On arixtra ) VTE Mechanical Devices: Intermittant Pneumatic CD Resuscitation Status: CPR: Attempt Resuscitation Attending Statement The patient was seen and examined together with Dr. Couch on and I agree with the history, exam and plan as outlined in the note above. . Humberto Couch DO Dec 25, 2016 20:06 Srinivas Abbott MD Dec 27, 2016 18:31
[2016-12-25] MEDS ORDERED: FONDAPARINUX 5 MG/0.4 ML SUBQ SCH (21:00)
[2016-12-25] MEDS: Total Parenteral Nutrition 1 BAG IV SCH (21:43)
[2016-12-25] MEDS ORDERED: KCl 40 mEq/100 mL (CENTRAL) 40 MEQ in IV Premix 1 EACH IV ONE (23:45)
[2016-12-26] VITALS (13 sets, daily range): BP systolic 89–119; BP diastolic 65–89; PULSE 58–107; RESP 12–34; O2SAT 50–100
[2016-12-26] MEDS: Hydrocortisone 50 mg/mL 2 mL Inj IVPUSH SCH ×3 (00:16→17:10)
[2016-12-26] MEDS: LORazepam 1 mg Tablet PO PRN (03:45)
[2016-12-26 07:01] LABS: BASOPHILS % (AUTO) 0.1 % (0-3); EOSINOPHILS % (AUTO) 0 % (0-5); Mean Corpuscular Hemoglobin 25.2 pg (27.0-35.0); NEUTROPHILS % (AUTO) 88.6 % (40-74); Platelet Count 49 bil/L (150-400)
--- NOTE | 2016-12-26 07:23 | ABG ---
DateTimeAnalyzed 07:18:00 -_ pH ____7.403 - 7.350 7.450 pCO2 ___38.2__ -mmHg 35.0 45.0 pO2 ___65.8__ -mmHg 69.0 116 HCO3- ___23.3__ -mmol/L 22.0 26.0 ABE ___-0.7__ -mmol/L -2.0 2.0 tHb ___10.6__ -g/dL O2Hb ___89.2__ -% COHb ____0.4__ -% MetHb ____2.4__ -% sO2 ___91.8__ -% FIO2 ___40.0__ -% Drawn By MT - Date/Time Notified____ 07:22:00 -_ Oxygen Device 1 SIMP MASK - Notified By MT - Notified Whom RN - B 751 -mmHg tO2 ___13.4__ -Vol% Daryl test _Positive -
[2016-12-26] MEDS ORDERED: Morphine PF 1 mg/mL 10 mL Inj IVPUSH PRN (07:50)
[2016-12-26] MEDS ORDERED: Albumin 25% 50 GM in IV Premix 1 EACH IV ONE (07:55)
[2016-12-26] MEDS ORDERED: Furosemide 10 mg/mL 4 mL Inj IVPUSH ONE (07:55)
--- NOTE | 2016-12-26 08:28 | DRSVH ---
PROCEDURE: CT BRAIN WITHOUT CONTRAST ([id number]) INDICATIONS: Decreased level of consciousness TECHNIQUE: Noncontrast 4.5 mm thick angled axial sections acquired from the foramen magnum to the vertex, with c oronal reformats. COMPARISON: None. FINDINGS: Image quality: Excellent. CSF spaces: Basal cisterns are patent. No extra-axial fluid collections. Ventricles are normal in size and shape. Brain: No intracranial hemorrhage, mass, or mass effect. Jara-white matter interface appears preser pipe. Skull and face: Calvarium and visualized facial bones are intact, without suspicious lesions. Sinuses: Visualized sinuses and mastoids are clear. IMPRESSION: 1. No acute intracranial abnormality. Dictated by: Chris Heredia M.D. on 12/26/2016 at 8:25 Approved by: Chris Heredia M.D. on 12/26/2016 at 8:26
[2016-12-26] MEDS: predniSONE 20 mg Tablet PO SCH (08:30)
[2016-12-26 08:33] LABS: Magnesium 2.1 mg/dL (1.6-2.6); Phosphorus 3.5 mg/dL (2.5-4.9)
[2016-12-26] MEDS: Nystatin 100,000 Unit/mL 5 mL Suspension PO SCH ×2 (08:48→20:31)
--- NOTE | 2016-12-26 09:30 | DRSVH ---
PROCEDURE: X-RAY CHEST ONE VIEW, PORTABLE ([id number]) INDICATIONS: Oxygen desaturation TECHNIQUE: One view of the chest was acquired. COMPARISON: [facility], CR, XR CHEST 1VW (PORTABLE), 12/25/2016, 8:21. FINDINGS: Surgical changes and devices: Stable position right IJ CVL. Lungs and pleura: Diffuse, widespread bilateral pulmonary interstitial and air space opacities are p resent with no significant change from prior examination. Small pleural effusions persist. No pneum othorax. Mediastinum: Mediastinal contours appear normal. Heart size is normal. Bones and chest wall: No suspicious bony lesions. Overlying soft tissues appear unremarkable. IMPRESSION: 1. No change from prior examination consistent with pulmonary edema and/or diffuse bilateral inflamma tory process. Dictated by: Jimmy Eubanks RRA Interpreted: Keeley Bethea MD on 12/26/2016 at 9:29 Transcribed by: LAUREN on 12/26/2016 at 9:30 Approved by: Keeley Bethea MD, PhD on 12/26/2016 at 17:04
[2016-12-26] MEDS ORDERED: KCl 20 mEq/100 mL(CENTRAL) 20 MEQ in IV Premix 1 EACH IV ONE (09:55)
[2016-12-26] MEDS: Piperacillin-Tazo 3.375 Gm Inj 3.375 GM in Dextrose 5% Minibag Plus 50 ML IV SCH ×2 (10:01→17:10)
--- NOTE | 2016-12-26 10:32 | PCM.PNMED ---
Subjective Date of Service Dec 26, 2016 Subjective GASTROENTEROLOGY PROGRESS NOTE Appears lethargic and somnolent, but arouses to voice. Able to assist with turns and movement of blankets and gowns to complete examination of posterior and of ostomy bag. States discomfort with HFNC. Admits with a shrugged shoulder when asked if she is experiencing pain. Exam Vital Signs Vital Sign - Last Date Time Temp Pulse Resp B/P Pulse Ox O2 Delivery O2 Flow Rate FiO2 12/26/16 07:24 Supplement Oxygen 12/26/16 07:24 36.5 82 24 113/86 90 15.00 Intake and Output 12/25/16 12/25/16 12/26/16 Cumulative From/Thru 15:00 23:00 07:00 12/18/16 14:54 - 12/26/16 06:19 Intake Total 375 ml 1408 ml 621 ml 59614 ml Output Total 1850 ml 1550 ml 75441 ml Balance 375 ml -442 ml -929 ml 72358 ml Intake Oral 300 ml 120 ml 8690 ml IV Total 75 ml 535 ml 501 ml 67097 ml TPN/PPN 573 ml 573 ml Packed Cells 300 ml 300 ml Output Urine Total 1150 ml 1150 ml 6320 ml Stool Total 700 ml 400 ml 45370 ml Urine/Stool Mix 700 ml # Voids 1 1 Exam General: Somnolent and lethargic; resting in bed with HOB at 45degrees Head: Atraumatic; cushinoid-facies; R IJ in place with bandages clean/dry/ intact Neck: Right IJ in place with bandages clean/dry and intact Nose: Mucous Membr Moist/Teresita; HFNC in place with mild erythema at prong sites Mouth: Mucous Membr dry Chest & Lungs: Bilateral crackles at bases; poor inspiratory effort; no use accessory muscles Cardiovascular: Tachycardic rate at time of examination, approx 100 Pulses: Radial (equal and bilateral); dorsalis pedis and posterior tibialis obscured by edema Abdomen: Mildly tender; ostomy site free of erythema; output liquid green- brown stool, no evidence edy blood : Taylor present and secured Extremities: Warm; moderate bilateral lower extremity edema extending from dorsum to midcalf; SCDs in place and feet elevated Skin: Warm and dry Neurological: Difficult to assess secondary to somnolence, but does awaken and does appropriately respond to commands and questioning Psych: Difficult to assess secondary to somnolence; limited insight and judgment based on history of noncompliance Lab and Diagnostics Result Diagram: 12/26/16 0345 12/26/16 0654 X-Rays, CTs and MRIs Portable chest x-ray performed December 22 IMPRESSION: 1. Pulmonary edema and/or diffuse bilateral pneumonia similar to prior examination. 2. Small pleural effusions. Dictated by: Jimmy Eubanks Kim Interpreted: Keeley Bethea MD on 12/25/2016 at 9:05 CT ABDOMEN AND PELVIS WITHOUT CONTRAST IMPRESSION: 1. Free air is not identified. 2. Markedly distended colon suggesting distal colonic obstruction. Rectal tube may be of benefit. 3. Question of low-density stones versus particles of air in the gallbladder. Ultrasound is suggested. ADDENDUM: Additional information is that the patient has had a colectomy. The distended loops therefore must be small bowel. In addition there is an ileostomy rather an ileal loop into the right lower quadrant. In the operative from this is reportedly fairly good. This would indicate that C. dilated small bowel loops are related to a chronic low-grade obstruction or a relatively acute high-grade obstruction. No wall thickening or air in the tsai of the dilated loops is seen. Since the patient does not have obstructive symptoms clinically this is likely to be a distended loops from chronic partial low grade obstruction of a small bowel loop. Dictated by: Esteban Cabrera M.D. on 12/18/2016 at 18:44 US ABDOMEN, LIMITED IMPRESSION: Multiple stones in the gallbladder but no free air or changes to indicate acute cholecystitis. Dictated by: Esteban Cabrera M.D. on 12/18/2016 at 19:49 X-RAY ACUTE ABDOMINAL SERIES IMPRESSION: Changes are consistent with partial or early small bowel obstruction. Dictated by: Esteban Cabrera M.D. on 12/18/2016 at 20:37 Assessment & Plan GASTROENTEROLOGY PROGRESS NOTE Ms. Terra Beauchamp is an extremely pleasant 31 year old woman that recently moved to the [facility] from the [facility] with a complex history of Crohn 's disease s/p total proctocolectomy with end ileostomy performed at [facility] in [place], [place]. She is on chronic glucocorticoids with Humira therapy, multiple prior obstructions/near obstructions near ostomy, recurrent flares, and recent left UE DVT secondary to PICC placement for TPN, who presented to the ED 12/18/2016 with acute on chronic diffuse abdominal pain, vomiting, and nausea. Reason for consult: Established GI patient with complex GI history that is the underlying etiology of current symptoms and recurrent admissions CT A/P wo/contrast 12/18: No free air; low density stones vs free air in gallbladder; dilated loops small bowel likely related to chronic low-grade obstruction. LUE doppler 12/23: Pre-Garrett report, not finalized: The basilic vein is not identified otherwise no definite venous thrombosis seen. CT A/P wo contrast 12/24: Suboptimal examination due to lack of oral and intravenous contrast. There is total colectomy and right lower quadrant ileostomy. Mild concentric thickening of a short segment of small bowel loop is noted in the right lower quadrant. There is decreased overall small bowel distention compared to 12/18/2016. A small amount of free peritoneal fluid, which is new.Small bilateral pleural effusions with bibasilar consolidation or atelectasis. Cannot rule out bibasilar pneumonia.Diffuse body wall edema and subcutaneous fluid collection with pockets of subcutaneous gas. Cannot rule out postoperative wound infection.There is mesenteric and retroperitoneal lymphadenopathy, which is nonspecific. 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 - Adrenal insufficiency secondary to chronic steroid use - LUE DVT secondary to PICC placement, on fondaparinux - Severe protein/calorie malnutrition, BMI 15 on admission, s/p RIJ placement for TPN - CT showing chronic low-grade obstruction. However clinically she is passing gas and passing fecal material. - Abdominal pain; chronic. Likely secondary to chronic, low grade stenosis and po attempts for maximal intake to maintain nutrition Plan/Recommendations - Diuresis per primary team to minimize fluid retention - Agree with primary team to pursue echo if indicated - Continue stress dose steroids as appropriate per primary team - Monitor HH - OK to hold Humira for this due dose - Continue TPN - If successfully intubated- assess for tube feeds with trickle via Dobhoff in addition to TPN - Diet: as appropriate per stability and ability to participate in po intake; recommend liquids initially when fully functional - Appreciate time and recs of ID: Concerns with fungal exposure given history of immunosuppression and possibility of travel to endemic areas - Remind patient and mother to provide [facility] records to [facility]/GI - Recommend continued PT evaluation - Next Humira due: 12/26; patient states she will need Rx (previous dose 12/12) - Must be provided by patient/family; not stocked in hospital pharmacy - Has appt with Dr. Dominic Zaidi at on 12/31 Patient has history of noncompliance, and removed Dobhoff the day of previous discharge while she was on her way home. Dobhoff was also removed while she was going home after the admission prior to that. Nutrition is essential for her, as she likely requires a complete revision, but her nutritional status is too poor to promote adequate healing. Previous discussions have included SNF. She is not a PEG candidate, as it would likely be more detrimental than beneficial especially because of the poor nutritional status indicated by low albumin. This is have significant impact on wound healing. Tube feeds were anticipated to last at least three months. Due to the history of noncompliance with Dobhoff and need for surgical intervention, TPN is next best choice. This does not come without risk, as her previous TPN site led to a DVT. She is still receiving anticoagulation at this time. Risks of TPN explained to patient, and because her need for nutrition is becoming increasingly critical, it is pursued at this time. TPN carries significant risk of infection, especially with her history of immunosuppression secondary to custodial steroids and now Humira use. On 12/24, she was urgently taken to endoscopy for another dilation of stoma, and then transferred to CCU for continued care. She has remained in critical condition with decreased respiratory function. Diuretics and O2 delivery methods ordered. Total time: 60 minutes VTE Prophylaxis: SCDs, Other (On arixtra ) VTE Mechanical Devices: Intermittant Pneumatic CD Resuscitation Status: CPR: Attempt Resuscitation Attending Statement Patient seen and examined. Agree with assessment and plan as described by Dr Arteaga. Complex Crohn's with severe protein calorie malnutrition. Developed recurrent stoma obstruction during hospitalization which responded to dilatation. Patient severely decompensated after initiation of TPN and this was consistent with flash pulmonary edema. Patient has demonstrated exhaustion and was quite somnalent. Discussed case with Dr Abbott this morning and we were concerned about possibility of cerebral edema. CT head did not uncover any acute pathology. Patient responded yesterday morning to diuresis, but this morning continued to worsen from a pulmonary standpoint in spite of diuresis. Was becoming progressively fatigued and required intubation. Reviewed bronch findings with Dr Vo. Sounds like severe pulmonary edema still high in the differential. Agree with further aggressive diuresis and broad spectrum antimicrobial coverage. Remains on fondaparinux. No sign of GI hemorrhage. Have recommended the Humira be held. Continue with stress dose steroids. Continue with IV nutrition but would like to see trickle tube feeds as well while the patient remains on the ventilator. 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 Discussed patient with Dr Smith who will be following Terra through the weekend. Elissa Arteaga DO Dec 26, 2016 08:39 Kirby Valdez MD Dec 26, 2016 18:08
--- NOTE | 2016-12-26 11:35 | PROG NOTE ---
[address] [address] PROGRESS NOTE PATIENT: MAE FELIZ : 1985 MR#: [id number] ADMIT: 12/18/2016 JOB ID: [id number] DATE: 12/26/2016 INFECTIOUS DISEASE FOLLOW UP NOTE: REASON FOR FOLLOW UP: Rapidly increasing pulmonary infiltrates with respiratory insufficiency in a patient with underlying Crohn disease and profound immunosuppression and malnutrition. INTERVAL HISTORY: Overnight, the patient has become more short of breath. She is now requiring high-flow nasal oxygen and is complaining of more shortness of breath as well as a dry cough. She reports subjective fevers without chills. She notes she has abdominal pain, but this is not atypical for her, of course, and as noted, a nonproductive cough. She also complains of being very weak. PHYSICAL EXAMINATION: Reveals an afebrile woman lying supine in her ICU bed. Her highest temperature was the single spike to 38.2 forty-eight hours ago. Otherwise her entire hospital stay she has been afebrile. Pulse currently in the 70s, respiratory rate in the 20s, but she is on high-flow nasal oxygen. Saturating 94%. Blood pressure 113/86, and she has not been hypotensive nor has she required vasopressor agent. She is awake and follows commands but is extremely weak and barely able to even speak. She does appear to be completely oriented, however. Her head with temporal wasting. She has evidence of glossitis which is probably on a nutritional basis. Neck without abnormalities. Lungs today are much different than yesterday. She has wet sounding crackles both lungs about senior care up anteriorly. Cardiac tones: Regular rate and rhythm without appreciable S3. Abdomen continues to be tender. She has a functioning ileostomy. Her legs are basically anasarcic. There is no cellulitis though there are beginnings of stage 1 decubitus on her heels as well as on her sacral area. LABORATORIES: Include a white count of 7900. The differential shows 88% segs but she was recently on steroids. Creatinine 0.52. Lactic acid has been normal. Procalcitonin yesterday was 0.32, the next day 0.24 and today's is pending. Total protein is 4 but albumin has been as low as 0.7 three days ago. Serology notable for a pending crypto antigen, pending Fungitell and pending urine histo antigen. IMPRESSION: This patient was discussed extensively with the entire ICU team as well as individually with many members of the ICU team. She is extraordinarily complex young woman with severe malnutrition due to Crohn disease with recurrent stenosis of her ileostomy. Her nutrition is extraordinarily poor with a documented albumin less than 1 on this admission and she has really just total body anasarca as a consequence of that. She has been admitted four times in four months to this hospital since she moved from [place]. Whether the patient has an infection remains an open question. She had a single temperature to 38.2 two days ago. Otherwise has been afebrile. Her procalcitonin is always around 0.3 and we know that from prior admissions as well as this one and it has not changed. Her white count is normal and she does not appear clinically septic. Of great concern though is her chest x-rays which we carefully compared during ICU rounds. A couple days ago for chest x-ray was relatively clear but now has extensive bilateral infiltrates. The rapidity of these pulmonary infiltrates suggests to me this is fluid related and may be a function of her albumin less than 1 and/or perhaps some cardiac dysfunction. It seems unlikely that a bacterial or fungal process could occur this quickly but, of course, she is extremely immunosuppressed and has been on high-dose steroids for long periods as well as still being under the effects of Humira. The differential diagnosis here is broad and would include histoplasmosis from [place] as well as Cryptococcus, Aspergillus or conceivably even Mucor. It is also possible she could have aspiration pneumonia due to her profound weakness, but the symmetry of these infiltrates and the speed with which they arose makes me think this is unlikely. Yesterday, we had stopped her Zosyn as we did not think she had a significant bacterial infection and I remain comfortable with that decision, but agree we should continue to aggressively look for evidence of pulmonary infection. RECOMMENDATIONS: 1. CT scan of the chest will be done today. 2. Fungal blood cultures x2 will be done today. 3. LDH will be added to her labs on a stat basis. 4. Will continue to await our pending serologies. 5. Should the patient deteriorate I think it would be reasonable to empirically restart broad-spectrum antibiotics with Zosyn as well as Bactrim for Pneumocystis as well as Cresemba for a broad-spectrum of fungal pathogens. 6. If we could, bronchoscopy would be excellent here but, of course, the patient is on high-flow FiO2 so that would not be reasonable at this current time. 7. This case discussed extensively on multiple occasions with Dr. Vo of the ICU Pulmonary team. Pt seen to aspirate cream of wheat after rounds Adding Back Zosyn MTDD
[2016-12-26] MEDS: Ondansetron 2 mg/mL 2 mL Inj IVPUSH PRN (11:42)
[2016-12-26] MEDS ORDERED: Propofol Inj 1,000,000 MCG in IV Premix 1 EACH IV SCH (12:07)
[2016-12-26] MEDS ORDERED: fentaNYL 2,500 mCg/250 mL 2,500 MCG in IV Premix 1 EACH IV SCH (12:07)
[2016-12-26] MEDS ORDERED: Propofol 10,000 mCg/mL 100 mL Inj ONE (12:19)
[2016-12-26] MEDS: Chlorhexidine 0.12% 15 mL Oral Solution MT SCH ×3 (12:30→20:31)
[2016-12-26] MEDS: fentaNYL 2,500 mCg/250 mL 2,500 MCG in IV Premix 1 EACH IV PRN (12:58)
--- NOTE | 2016-12-26 13:07 | PCM.CHPMED ---
Subjective Date of Service: Dec 26, 2016 Provider requesting consult: Srinivas Abbott MD Primary Physician: Admitting Physician: Juwan Red MD Primary Care Physician: Elissa Arteaga DO Attending Physician: Vj Brownlee MD Admit Status: From the Emergency Department, Full Admit Chief Complaint: Chief Complaint: Dyspnea. . History of Present Illness: Intensive/Pulmonology Consultation Note: Attending Dr. Gilda Ellison Quynh is a 31-year-old female with a complex past medical history significant for Crohn's disease status post total proctocolectomy with end ileostomy performed at [facility] in [place], [place]. She is on chronic glucocorticoids and Humira, with multiple prior obstructions and near obstructions, recurrent flares, and recent left UE DVT secondary to PICC placement for TPN, who presented to [facility] Emergency Department on 12/18/2016 with acute on chronic Crohn's flare who developed acute hypoxemic respiratory failure now status post intubation. Hospital day #9. Subjective exam and review of systems unobtainable due to patient's status. Patient continued to be increasingly dyspneic despite being on high flow oxygen , therefore, in the process of being intubated. . Review of Systems: A comprehensive review of systems was unobtainable due to patient's status. . PMH Past Medical History PMH/PSH unobtainable due to patient condition and taken from admission HPI: Abdominal proctocolectomy with right upper quadrant ileostomy at [facility] October 2013. Recurrent stoma stenosis. Severe protein calorie malnutrition. DVT secondary to IV placement. Crohn's disease. Perirectal fistula after Remicade w/ bacteremia resolved w/ bowel rest x 1 month /TPN. Anxiety. Iron deficiency anemia. SBO. Coagulation disorder. 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 Tympanostomy, T and A, C. section. Low grade TETO status post colposcopy. . Home Medications Prednisone 20mg daily. Roxicodone. Percocet. Humira, last dose 12/12. Fondaparinux. . Allergies: Coded Allergies: Iodinated Contrast Media - Oral and (Verified Allergy, Severe, Shortness of Breath,full body rash/redness, 12/18/16) Family History Family History FH unobtainable due to patient condition and taken from admission HPI: Mother has celiac disease. Grandfather was diagnosed with colon cancer at age 62. . Social History Hx Alcohol Use: NoHx Substance Use: NoHx Tobacco Use: No Smoking Status: Never Smoker Living Arrangement: with Family Exam Vital Signs Vital Sign - Last Date Time Temp Pulse Resp B/P Pulse Ox O2 Delivery O2 Flow Rate FiO2 12/26/16 12:23 89 118/89 50 40 12/26/16 11:46 36.7 34 HFO2NC 12/26/16 11:02 40 Intake and Output 12/25/16 12/25/16 12/26/16 Cumulative From/Thru 15:00 23:00 07:00 12/18/16 14:54 - 12/26/16 06:19 Intake Total 375 ml 1408 ml 621 ml 21275 ml Output Total 1850 ml 1550 ml 25242 ml Balance 375 ml -442 ml -929 ml 84975 ml Intake Oral 300 ml 120 ml 8690 ml IV Total 75 ml 535 ml 501 ml 97939 ml TPN/PPN 573 ml 573 ml Packed Cells 300 ml 300 ml Output Urine Total 1150 ml 1150 ml 6320 ml Stool Total 700 ml 400 ml 28504 ml Urine/Stool Mix 700 ml # Voids 1 1 General: Mild Distress, Other (Cahcetic young female, intubated and sedated) Eyes: PERRLA, EOMI, Scleral Anicteric Chest & Lungs: Other (diffuse bronchial breath sounds throughtout anterior lung castillo) Cardiovascular: Regular Rate/Rhythm, Normal S1, Normal S2, No Murmurs/Rubs/ Gallops Pulses: NL carotid, radial, femoral, DP, PT Abdomen: Non-distended, No hepatosplenomegaly, Normoactive bowel tones, Ostomy (mid abdomen with liquid stool, no hematochezia or melena), Soft, Other ( scaphoid) Extremities: No cyanosis/clubbing/edma bilat Additional Information: Ventilator settings: PRVC. Tidal volume 440. Respiratory rate 16. FiO2 40%. PEEP 10.0. Peak 27. Plateau 25. IV drips and Sedatives: Fentanyl 100 g/hr and propofol 35 g/kg/min. TPN. IV lines: Right IJ and left radial peripheral IV. I&O: Net + [id number] Microbiology: Stool PCR negative. MRSA screen negative. Urine culture grew mixed normal marissa. Blood culture 2 pending. Blood fungal culture 2 pending. . Lab and Diagnostics Labs Item Value Date Time Procalcitonin 0.32 ng/mL H 12/24/16 0530 Procalcitonin 0.24 ng/mL H 12/25/16 0355 Item Value Date Time Lactate Dehydrogenase 213 U/L H 12/26/16 0654 Item Value Date Time Calcium Level 8.0 mg/dL L 12/26/16 0654 Ionized Calcium (Calculated) 4.47 mg/dL 12/26/16 0654 Phosphorus Level 3.5 mg/dL 12/26/16 0654 Magnesium Level 2.1 mg/dL 12/26/16 0654 Total Protein 4.4 g/dL L 12/26/16 0654 Result Diagram: 12/26/16 03412/26/16 06 X-Rays, CTs and MRIs X-RAY CHEST ONE VIEW, PORTABLE IMPRESSION: 1. Worsening pulmonary edema and/or diffuse bilateral pneumonia. Developing ARDS cannot be excluded. Dictated by: Jimmy ESCALANTE Interpreted: Keeley Bethea MD on 12/26/2016 at 13:14 CT BRAIN WITHOUT CONTRAST IMPRESSION: 1. No acute intracranial abnormality. Dictated by: Chris Heredia M.D. on 12/26/2016 at 8:25 CT ABDOMEN AND PELVIS WITHOUT CONTRAST IMPRESSION: 1. Suboptimal examination due to lack of oral and intravenous contrast. 2. There is total colectomy and right lower quadrant ileostomy. Mild concentric thickening of a short segment of small bowel loop is noted in the right lower quadrant. There is decreased overall small bowel distention compared to 2016. 3. A small amount of free peritoneal fluid, which is new. 4. Small bilateral pleural effusions with bibasilar consolidation or atelectasis. Cannot rule out bibasilar pneumonia. 5. Diffuse body wall edema and subcutaneous fluid collection with pockets of subcutaneous gas. Cannot rule out postoperative wound infection. 6. There is mesenteric and retroperitoneal lymphadenopathy, which is nonspecific. The result was discussed with Dr. Valdez on 12/24/2016 at 1405 hours. Dictated by: More Woodard M.D. on 12/24/2016 at 13:01 US VENOUS ARM DUPLEX UNILATERAL, LEFT IMPRESSION: 1. The basilic vein is not identified otherwise no definite venous thrombosis seen. Dictated by: Jimmy ESCALANTE Interpreted: Dominic Joyce MD on 12/23/2016 at 17 :07 US ABDOMEN, LIMITED IMPRESSION: Multiple stones in the gallbladder but no free air or changes to indicate acute cholecystitis. Dictated by: Esteban Cabrera M.D. on 12/18/2016 at 19:49 X-RAY ACUTE ABDOMINAL SERIES IMPRESSION: Changes are consistent with partial or early small bowel obstruction. Dictated by: Esteban Cabrera M.D. on 12/18/2016 at 20:37 CT ABDOMEN AND PELVIS WITHOUT CONTRAST IMPRESSION: 1. Free air is not identified. 2. Markedly distended colon suggesting distal colonic obstruction. Rectal tube may be of benefit. 3. Question of low-density stones versus particles of air in the gallbladder. Ultrasound is suggested. ADDENDUM: Additional information is that the patient has had a colectomy. The distended loops therefore must be small bowel. In addition there is an ileostomy rather an ileal loop into the right lower quadrant. In the operative from this is reportedly fairly good. This would indicate that C. dilated small bowel loops are related to a chronic low-grade obstruction or a relatively acute high-grade obstruction. No wall thickening or air in the tsai of the dilated loops is seen. Since the patient does not have obstructive symptoms clinically this is likely to be a distended loops from chronic partial low grade obstruction of a small bowel loop. Dictated by: Esteban Cabrera M.D. on 12/18/2016 at 18:44 . Additional Diagnostics: Limited ileoscopy with stoma balloon dilatation under fluoroscopy. ENDOSCOPIC DIAGNOSES: 1. Severe stomal stenosis. 2. 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 3. Successful stomal dilatation to 12 mm. RECOMMENDATIONS: 1. After again cleaning the skin, application of the ostomy bag is to be performed in the ICU. 2. Continue full liquid diet. 3. As long as there are no apparent hemorrhagic complications, I think it would be fine to continue the fondaparinux this evening. 4. Dr. Abbott is planning on placing the right IJ for central access this evening and once this is in position, TPN should immediately be Kirby Valdez MD 12/24/16 2955 Assessment & Plan Assessment Terra Beauchamp is a 31-year-old female with a complex past medical history significant for Crohn's disease status post total proctocolectomy with end ileostomy performed at [facility] in [place], [place]. She is on chronic glucocorticoids and Humira, with multiple prior obstructions and near obstructions, recurrent flares, and recent left UE DVT secondary to PICC placement for TPN, who presented to [facility] Emergency Department on 12/18/2016 with acute on chronic Crohn's flare who developed acute hypoxemic respiratory failure now status post intubation. Hospital day #9. 1. Acute hypoxemic respiratory failure, not present on admission. Active. - The patient became increasingly dyspneic and hypoxemic and is now status post intubation via anesthesiology. Possible ARDS versus cardiogenic pulmonary edema. - Chest x-ray revealed pulmonary edema. - Ordered CT chest without contrast, pending. - Continue ventilator at current settings pending ABG. - Continue ABG to monitor ventilator. - Started on propofol for sedation, as above. - Continue diuresis with Lasix 40 mg IV daily and may increase to twice daily. - Ordered echocardiogram to rule out cardiogenic edema. - Plan for bronchoscopy today with possible BAL. 2. Distal terminal ileal enteroenteric fistulae, present on admission. Active. - She has been complaining of generalized abdominal pain, worse in the LLQ. Pain is associated with nausea and vomiting. Likely due to strictures and obstruction - Continue fentanyl gtt. - The patient will likely need revision of stenotic stoma in the future once nutritional status is improved. - GI consulted and following. 3. Early or partial acute small bowel obstruction, present on admission. Active. - Most recent abdominal imaging shows evidence of developing small bowel obstruction and other strictures. - Continue TPN and start trophic tube feeds. - GI consulted, will continue to follow, appreciate time and input. - Surgery consulted and following. Appreciate time and input. 4. Acute thrombocytopenia, not present on admission. Improving. - She reports that her edematous face and feet coincided with initiation of Prednisone and Arixtra. She has been slowly tapering off of Prednisone, but the edema of her face continues to worsen. - She also is developing thrombocytopenia with her platelets continuing to decrease to 56 today. Part of the decrease may be dilutional with all the increased fluids, but her platelet levels have been trending downwards. - Will continue to taper off Prednisone slowly and continue to evaluate for source of thrombocytopenia. 5. Acute on chronic microcytic anemia, present on admission. Acute portion resolving. - Acute portion most likely dilutional due as she is net +11 L and chronic likely iron deficiency from malnutrition. - 2 units of packed red blood cells were transfused, this in conjunction with diuresis has brought her hemoglobin to greater than 10. - Consider iron supplementation as outpatient. - No overt signs of bleeding. Continue to monitor hemoglobin and hematocrit daily. Chronic problems per primary team: 6. Crohn's disease with RLQ high output Ileostomy with severe protein/calorie malnutrition, present on admission. - Continue hydrocortisone 50 mg every 8 hours. - Patient not a PEG tube candidate per GI. - She has previously been noncompliant with Dobhoff due to discomfort and anxiety. - Continue TPN and start trophic tube feeds. - Next Humira is due but being held. - Plan for PICC line placement in future. 7. Recent upper extremity DVT, not present on admission. - Ultrasound did not show definite DVT, as above. - She is now anticoagulated on Fondaparinux due to UE DVT in October after PICC line placement. She is to continue the Fondaparinux for 6 months. 8. Anxiety and depression, present on admission. - Patient's anxiety and depression are related to disease condition but creating significant morbidity none the less. - Will continue Klonopin 0.5mg BID and Fluoxetine 20 mg daily. 9. Likely acute thrush, present on admission. - Secondary to prednisone usage. - Will plan to tx with Nystatin Swish and spit . Problems: Pain Evaluation: Adequate Pain Control VTE Prophylaxis: SCDs, Other (On arixtra ) VTE Mechanical Devices: Intermittant Pneumatic CD Resuscitation Status: CPR: Attempt Resuscitation Attending Statement I have seen and examined this patient with the resident physician. Vital signs , labs, imaging have been reviewed. I agree with the assessment and plan above. Please refer to my separately dictated progress note for any modifications to above. Loraine Vo M.D. Pulmonary and Critical Care medicine Pager [phone] Dania Brandt DO Dec 26, 2016 13:07 Loraine Vo MD Dec 26, 2016 16:08
--- NOTE | 2016-12-26 13:15 | DRSVH ---
PROCEDURE: X-RAY CHEST ONE VIEW, PORTABLE ([id number]) INDICATIONS: Post intubation to verify ETT placement TECHNIQUE: One view of the chest was acquired. COMPARISON: [facility], CR, XR CHEST 1VW (PORTABLE), 12/26/2016, 3:15. FINDINGS: Surgical changes and devices: ETT has been placed tip projected 2.5 cm above the dina. No change i n positioning of right IJ CVL. Lungs and pleura: Diffuse, widespread bilateral pulmonary interstitial and air space opacities are p resent increased from prior examination with relative sparing of the lung apices. Small pleural effu sions. Mediastinum: Mediastinal contours appear normal. Heart size is normal. Bones and chest wall: No suspicious bony lesions. Overlying soft tissues appear unremarkable. IMPRESSION: 1. Worsening pulmonary edema and/or diffuse bilateral pneumonia. Developing ARDS cannot be excluded. Dictated by: Jimmy Eubanks RRA Interpreted: Keeley Bethea MD on 12/26/2016 at 13:14 Transcribed by: LAUREN on 12/26/2016 at 13:15 Approved by: Keeley Bethea MD, PhD on 12/26/2016 at 17:03
--- NOTE | 2016-12-26 13:16 | PCM.PNMED ---
Subjective Date of Service Dec 26, 2016 Subjective Overnight patient's oxygen demands increased up to 13 L per minute, on oxygen mask, eventually this went up to 15 L and was only satting in the low 90s. Chest x-ray performed showed recurrence of pulmonary congestion, head CT was performed to evaluate for possible causes of increased drowsiness, this returned negative. Exam Vital Signs Vital Sign - Last Date Time Temp Pulse Resp B/P Pulse Ox O2 Delivery O2 Flow Rate FiO2 12/26/16 12:23 89 118/89 50 40 12/26/16 11:46 36.7 34 HFO2NC 12/26/16 11:02 40 Intake and Output 12/25/16 12/25/16 12/26/16 Cumulative From/Thru 15:00 23:00 07:00 12/18/16 14:54 - 12/26/16 06:19 Intake Total 375 ml 1408 ml 621 ml 12153 ml Output Total 1850 ml 1550 ml 99695 ml Balance 375 ml -442 ml -929 ml 38820 ml Intake Oral 300 ml 120 ml 8690 ml IV Total 75 ml 535 ml 501 ml 88849 ml TPN/PPN 573 ml 573 ml Packed Cells 300 ml 300 ml Output Urine Total 1150 ml 1150 ml 6320 ml Stool Total 700 ml 400 ml 35229 ml Urine/Stool Mix 700 ml # Voids 1 1 Exam General: Thin cachectic Female who appears more lethargic/somnolent while laying in bed this morning. HEENT: PERRLA, Enlarged bright red tongue, dry oral mucosa with diffuse white webbing. Symmetrically edematous cheeks Chest & Lungs: Diffuse rales, patient laying on her left lateral decubitus position, worse rails in the left field. Cardiovascular: bradycardic, regular rhythm, no murmurs noted Pulses: Weak radial pulses bilaterally Abdomen: Tender to palpation diffusely although most tender in the LLQ, Non- distended, No guarding, No rebound, Ileostomy in place, stoma free of erythema and leakage Extremities: Cool, Severe bilateral pitting edema from feet up to both knees. Skin: Dry cracking skin diffusely on back and extremities, early pressure ulcer changes on sacrum and iliac. Abrasions to back and legs Neurological: Grossly intact, globally weak. Psych: Answers appropriately, somnolent. Lab and Diagnostics Result Diagram: 12/26/16 0345 12/26/16 0654 X-Rays, CTs and MRIs Head CT without contrast performed 12/26/2016 IMPRESSION: 1. No acute intracranial abnormality. Dictated by: Chris Heredia M.D. on 12/26/2016 at 8:25 Chest x-ray performed 12/26/2016 IMPRESSION: 1. No change from prior examination consistent with pulmonary edema and/or diffuse bilateral inflammatory process. Dictated by: Jimmy ESCALANTE Interpreted: Keeley Bethea MD on 12/26/2016 at 9:29 Portable chest x-ray performed December 22 IMPRESSION: 1. Pulmonary edema and/or diffuse bilateral pneumonia similar to prior examination. 2. Small pleural effusions. Dictated by: Jimmy ESCALANTE Interpreted: Keeley Bethea MD on 12/25/2016 at 9:05 CT ABDOMEN AND PELVIS WITHOUT CONTRAST IMPRESSION: 1. Free air is not identified. 2. Markedly distended colon suggesting distal colonic obstruction. Rectal tube may be of benefit. 3. Question of low-density stones versus particles of air in the gallbladder. Ultrasound is suggested. ADDENDUM: Additional information is that the patient has had a colectomy. The distended loops therefore must be small bowel. In addition there is an ileostomy rather an ileal loop into the right lower quadrant. In the operative from this is reportedly fairly good. This would indicate that C. dilated small bowel loops are related to a chronic low-grade obstruction or a relatively acute high-grade obstruction. No wall thickening or air in the tsai of the dilated loops is seen. Since the patient does not have obstructive symptoms clinically this is likely to be a distended loops from chronic partial low grade obstruction of a small bowel loop. Dictated by: Esteban Cabrera M.D. on 12/18/2016 at 18:44 US ABDOMEN, LIMITED IMPRESSION: Multiple stones in the gallbladder but no free air or changes to indicate acute cholecystitis. Dictated by: Esteban Cabrera M.D. on 12/18/2016 at 19:49 X-RAY ACUTE ABDOMINAL SERIES IMPRESSION: Changes are consistent with partial or early small bowel obstruction. Dictated by: Esteban Cabrera M.D. on 12/18/2016 at 20:37 Assessment & Plan Terra Beauchamp is an 31 year old woman that recently moved to the [facility] from [facility] with a complex history of Crohn's disease s/p total proctocolectomy with end ileostomy performed at [facility] in [place], [place]. She is on chronic glucocorticoids with Humira therapy, multiple prior obstructions/near obstructions near ostomy, recurrent flares, and recent left UE DVT secondary to PICC placement for TPN, who presented to the ED 2016 with acute on chronic diffuse abdominal pain, vomiting, and nausea. on hospital day 7 patient developed acute hypoxic respiratory failure and was Hospital day 9 ICU, day 3 Ventilator day 1 # Acute hypoxemic respiratory failure, not present on admission, Worsening. Patient was placed on high flow nasal cannula, continued to desaturate on maximal settings, patient was intubated and placed on ventilator. Ventilator day 1. Most likely due to fluid overload evidenced on x-ray has diffuse edema however fungal infection, cardiac etiology, and refeeding syndrome are differentials. Patient has received multiple doses of IV Lasix, and albumin. Cardiac etiology :Echocardiogram to be completed Infectious etiology: Chest CT without contrast to be completed. Possible bronchoscopy per pulmonology Fungal blood cultures 2, LDH evaluated, Restart Zosyn as well as Bactrim for pneumocystis as well as Cresemba for broad spectrum fungal pathogens. Evaluating urine protein, to assess renal cause of peripheral and pulmonary edema Central respiratory depression is also in etiology, we have DC'd or reduced the doses for Roxicodone, Versed, Dilaudid, lorazepam. Histo urine antigen ordered given her exposure to this to endemic area. Fungitell ordered, crypto antigen has been added, possible pneumocystis possible , but not considered unless progressive shortness of breath, fevers, or increasing infiltrates Infectious disease, critical care pulmonology, and gastroenterology following in consultation on the case. We appreciate their time, evaluation, and recommendations. Now that patient is sedated and she may tolerate feeding tube modalities. Patient remains 11 L positive, will continue diuresis. # Acute aspiration, not present on admission, treatment initiated Patient was receiving oral food, she began to cough and it was perceived that she was aspirating. Infectious disease was notified, patient restarted on Zosyn IV. Swallow evaluation was ordered, however patient's O2 demands in respiratory distress cause the evaluation of the postponed. # Crohn's disease with RLQ high output Ileostomy with Severe protein/calorie malnutrition, POA -Continue prednisone, hold Humira. - Patient not a PEG tube candidate per GI but surgical tech believe this would be preferable option. - She has previously been noncompliant with Dobhoff due to discomfort and anxiety. - Patient would prefer TPN. Not a GI tube candidate. - She is now anticoagulated on Fondaparinux due to UE DVT in October after PICC line placement. She is to continue the Fondaparinux for 6 months. #Thrombocytopenia, acute, not present on admission - She reports that her edematous face and feet coincided with initiation of Prednisone and Arixtra. She has been slowly tapering off of Prednisone, but the edema of her face continues to worsen. - She also is developing thrombocytopenia with her platelets continuing to decrease to 56 today. Part of the decrease may be dilutional with all the increased fluids, but her platelet levels have been trending downwards. - Will continue to taper off Prednisone slowly and continue to evaluate for source of thrombocytopenia. # Acute anemia, not present on admission, Stable Most likely delusional due to the numerous liters of fluid she has received 2 units of packed red blood cells were transfused, this in conjunction with diuresis has brought her hemoglobin to greater than 10. Continue to monitor # Fever, acute - resolved Has not reoccurred since transfer to the intensive care unit. Remains afebrile Patient was noted to develop a fever this morning. She continues to be hypotensive despite over 6 liters of fluids yesterday. She is having worsening abd pain, especially in the LLQ. Patient is likely septic and will undergo a sepsis workup. Source is likely her abdomen. Concerns for abscess formation and ischemia Blood cultures ordered, CT Abd pelvis without contrast due to allergy, WIll initiate empiric antibiotics after blood cultures drawn. Will continue hydrating copiously. Infectious disease continues to consult # Hypovolemic hyponatremia, chronic, present on admission - resolved. -Has been increasingly tachycardic and hypotensive as a result of her hypovolemic state secondary to High Output Ileostomy and poor absorption -- Patient is now eunatrimic, normotensive, and heart rate under control --Will continue IV NS and IV NS with bicarb through today and reassess electrolyte status in the PM. # Abdominal pain in the setting of Crohn's disease s/p total proctocolectomy with RLQ ileostomy, acute, present on admission -She has been complaining of generalized Abd pain, worse in the LLQ. Pain is associated with nausea and vomiting. Likely due to strictures and obstruction -Continuing to have generalized abd pain. May require repeat imaging and NGT decompression if obstruction is worsening. # Early or partial small bowel obstruction, acute, present on admission -Most recent abdominal imaging shows evidence of developing small bowel obstruction and other strictures. She is still having high ostomy output, although mostly just liquids. Status post stomal dilation December 24 -GI consulted, will continue to follow, appreciate time and input. -Continue IVF while having poor PO intake -Surgery consulted and following. Appreciate time and input. # Hypochromic microcytic anemia, likely iron deficiency, chronic, present on admission -Due to poor oral intake and poor nutritional status -Consider iron supplementation as outpatient # Anxiety and Depression, POA Patient's anxiety and depression are related to disease condition but creating significant morbidity none the less. Will continue Klonopin 0.5mg BID and up to FLuoxetine 20mg daily Patient is now under general sedation. # Likely Oral Candidiasis, acute Secondary to Prednisone usage. Pain Evaluation: Adequate Pain Control GI Prophylaxis: H2 luis carlos VTE Prophylaxis: SCDs, Other (On arixtra ) VTE Mechanical Devices: Intermittant Pneumatic CD Resuscitation Status: CPR: Attempt Resuscitation Attending Statement The patient was seen and examined together with Dr. Couch on 12/26/2016 and I agree with the history, exam and plan as outlined in the note above. . Humberto Couch DO Dec 26, 2016 13:16 Srinivas Abbott MD Dec 27, 2016 18:34
--- NOTE | 2016-12-26 13:33 | ABG ---
DateTimeAnalyzed 13:25:00 -_ pH ____7.555 - 7.350 7.450 pCO2 ___25.8__ -mmHg 35.0 45.0 pO2 ___59.0__ -mmHg 69.0 116 HCO3- ___22.8__ -mmol/L 22.0 26.0 ABE ____1.4__ -mmol/L -2.0 2.0 tHb ___10.3__ -g/dL O2Hb ___90.5__ -% COHb ____0.5__ -% MetHb ____2.3__ -% sO2 ___93.1__ -% FIO2 ___50.0__ -% PEEP ___10.0__ -cmH2O Set_RR ___16.0__ -b/min Vt __400.0__ -L Drawn By MT - Date/Time Notified____ 13:30:00 -_ Spontaneous_RR ___16.0__ -b/min Oxygen Device 1 VENTILATOR - Notified By MT - Notified Whom _Dr Rikki - B 752 -mmHg tO2 ___13.1__ -Vol% Daryl test _Positive -
--- NOTE | 2016-12-26 14:05 | PCM.PHAPRO ---
Progress tpn . TPN day 3 Respiratory failure, now on mechanical ventilation Fluid overload with pulmonary edema Possible aspiration PNA Crohn's disease with RLQ high output Ileostomy with Severe protein/calorie malnutrition History of DVT in October of this year, starting 3rd month of anticoagulation with fondaparinux Thrombocytopenia, acute, not present on admission, etiology unclear I. Fluid Balance 10 Liters fluid excess with a dry weight of ~ 40kg with profound hypoalbuminemia p/ Restrict sodium and total volume in TPN, follow VS I/O weight carefully II. Chemistry Generally WNL, not apparently refeeding p/ follow lytes III. Glycemic control BS 170's x1 today p/ Watch, consider slow addition of insulin to TPN vs insulin infusion IV. Substrate Advanced to goal today ~1450kcal, with 65g protein PARENTERAL NUTRITION ORDERS 3 26-Dec-16 Standard Hang Time: 2100 Substrates Total kcal: 1444 AMINO ACIDS 65 g DEXTROSE 260 g Total Volume (mL): 1000 LIPIDS 30 g Sterile Water for Injection QS mL To Infuse Over (hrs): 24 Total Volume 1000 mL At at a rate of (mL/hr): 42 Additives Sodium Chloride 40 mEq "typical" daily requirements Sodium Acetate 20 mEq Sodium 50-120mEq Potassium Chloride 60 mEq Potassium 60-120mEq Potassium Phosphate 30 mEq Phosphate 20-40mEq Calcium Gluconate 4.5 mEq Magnesium 8-32mEq Magnesium Sulfate 8 mEq Calcium 9-22mEq Acetate* 80-120mEq Chloride* 80-120mEq Regular Insulin units *Depending on acid-base status Famotidine mg Multivitamins 1 std dose Insulin Regimen Trace Elements 1 std dose none Thiamine mg Regular Low Intensity Subcut Folic Acid mg Regular Medium Intensity Subcut Ascorbic Acid mg Regular High Intensity Subcut Regular Insulin Infusion Other: Special Instructions: To be infused via central line only. For delay or inturruption of TPN contact the pharmacist for alternative replacement solution. Lam Salmeron Pharm D Dec 26, 2016 14:05
[2016-12-26] MEDS ORDERED: Lidocaine PF 2% 10 mL Inj ONE (14:41)
[2016-12-26] MEDS ORDERED: Lidocaine 2% 5 mL Topical Jelly ONE (14:41)
--- NOTE | 2016-12-26 14:42 | DRSVH ---
PROCEDURE: CT CHEST WITHOUT CONTRAST ([id number]) INDICATIONS: SOB TECHNIQUE: Noncontrast 5 mm thick sections acquired from the pulmonary apices to the posterior costophrenic angl es. 7 mm thick coronal and sagittal MIP reformats were then acquired. For radiation dose reduction, the following was used: automated exposure control, adjustment of mA and/or kV according to patient size. COMPARISON: [facility], CR, XR CHEST 1VW (PORTABLE), 12/24/2016, 19:35. [facility], CR, XR CHEST 1VW (PORTABLE), 12/25/2016, 5:16. [facility], CR, XR CHEST 1VW (PORT ABLE), 12/26/2016, 3:15. [facility], CT, CT ANGIO CHEST PE, 10/25/2016, 13:39. FINDINGS: Image quality: Excellent. Lungs and pleura: Severe diffuse bilateral air space opacities are present, with mid and lower lung p redominance, indicating pneumonia, given the rapid onset. No pneumothorax. Small bilateral pleural ef fusions are present. Central airways are patent. There is opacification of the right lower lobe bronc hus. An ETT is present, tip of which is in expected location. Mediastinum: Heart size is normal. No pericardial effusion. No mediastinal adenopathy by size crit eria. Thoracic aorta and central pulmonary arteries are normal in size. Esophagus is normal in clayton vish. An NGT is present, tip of which extends below the level of the film. No hiatal hernia. Bones and chest wall: No suspicious bony lesions. No vertebral body compression fractures. No axil miekl or supraclavicular adenopathy by size criteria. Thyroid gland is within normal limits as visual ized. Severe abodominal subcutaneous edema. Abdomen: Visualized portions of the upper abdomen demonstrate a small amount of ascites. IMPRESSION: 1. Severe bilateral pneumonia. 2. Small bilateral pleural effusions. 3. Opacification of the right lower lobe bronchus, consistent with mucous plugging. 4. Small amount of ascites. 5. Severe abdominal subcutaneous edema. 6. Findings discussed with Dr. Brandt on 12.26.16 at 1439 hrs. Dictated by: Calvin Bonds M.D. on 12/26/2016 at 14:27 Approved by: Calvin Bonds M.D. on 12/26/2016 at 14:41
--- NOTE | 2016-12-26 15:02 | CONS ---
[address] [address] CONSULTATION REPORT PATIENT: MAE FELIZ : 1985 MR#: [id number] ADMIT: 12/18/2016 JOB ID: [id number] DATE OF SERVICE: 12/26/2016 PULMONARY CRITICAL CARE CONSULTATION NOTE: The patient is a 31-year-old woman, seen in consultation at the request of Dr. Abbott, for acute hypoxic respiratory failure. The patient was seen and evaluated with resident physician, Dania Brandt. Please refer to her separate detailed note for additional information. HISTORY OF PRESENT ILLNESS: The patient is a 31-year-old woman with Crohn's disease, status post colectomy with ileostomy, who presented with nausea, vomiting, and abdominal pain. She is immunocompromised with Humira and steroids and has also been on TPN IV, on and off, with limited oral nutrition. She has been in the hospital since December 18, primarily for GI issues, but over the last couple of days, had worsening hypoxemia and respiratory distress to the extent that she was transferred to the ICU overnight, on high-flow oxygen. She was on 70% high-flow nasal cannula this morning but rapidly progressed to needing 100% with sats dropping into the 80s, and at this point, we made the decision to have the patient intubated with her permission. Spoke to the patient and her mother. The patient, at this point, was somewhat lethargic and confused and not really able to have a conversation with respiratory distress. Anesthesia performed the intubation at the bedside. Past medical history, social history, family history, and review of systems is per Dr. Brandt's separate note, but could not be obtained directly from the patient today because of her mental status and respiratory status. PHYSICAL EXAMINATION: Vital signs reviewed. She is afebrile. Pulse 78, respirations 22, BP 113/86, sats 91% on 100% FiO2 on high-flow nasal cannula. General: Extremely thin, cachectic-looking woman, who is lethargic, although trying to answer questions. She is in mild distress because of her respiratory status. Neck: No cervical lymphadenopathy. HEENT: Oral mucosa is moist, but she has a small mouth opening. Chest: Bilateral diffuse crackles and rhonchi. Heart: Regular rate, rhythm, but tachycardic. Abdomen: Slightly tender. She has an ileostomy. Extremities: She has 3+ bilateral lower extremity edema. Extremities: No cyanosis or clubbing. LABORATORIES: Reviewed. CBC and chemistry within acceptable limits. Procalcitonin today is 0.14 from 0.24 a couple of days ago. Cultures: All she has had since admission is a stool PCR which was negative. IMAGING: Chest x-ray, even on December 24, looked pretty normal except for some hilar consolidation that was minimal, but on December 25, her x-ray shows dense bilateral hilar predominant consolidation with bibasilar infiltrates versus effusion that persists today as well. Arterial blood gas shows pH of 7.40, pCO2 of 38, pO2 of 65, bicarb of 23. ASSESSMENT/RECOMMENDATIONS: 1. Acute hypoxic respiratory failure. 2. Acute respiratory distress syndrome. 3. Crohn's disease, status post colectomy with ileostomy and now with stomal stenosis. 4. Immunocompromised due to Humira and steroids for Crohn's disease. 5. Protein calorie malnutrition. 6. Severe hypoalbuminemia with albumin 1 or less. 7. Upper extremity peripherally-inserted central catheter-associated deep venous thrombosis in October 2016, on fondaparinux. 8. Thrombocytopenia. This complex 31-year-old woman with multiple medical problems, described above, was transferred to the ICU for relatively rapid-onset hypoxemia with respiratory distress and now respiratory failure, requiring mechanical ventilation. She was just intubated minutes ago. She has dense bilateral hilar predominant infiltrates with what could be bilateral pleural effusions that seem to have developed pretty rapidly. Differential includes an infectious process, specifically an opportunistic or fungal infection in this immunocompromised patient on Humira and steroids, as well as TPN, but also includes acute pulmonary edema and rapidly accumulating pleural effusions with her severe hypoalbuminemia. We have an echocardiogram pending and also CT of her chest pending to further evaluate. I would like to perform a bronchoscopy this afternoon if she tolerates it based on her oxygenation to further evaluate for infection and alveolar hemorrhage. She would probably require some PEEP to improve her oxygenation, and I would like to let her stabilize and improve her oxygenation before trying low tidal volumes. With regards to antibiotics, she was on Zosyn, on and off, and that is being continued right now. She is getting hydrocortisone 100 mg IV q.8. Her Humira dose is due today but I asked them to hold it for the possibility of this being an infectious process including aspiration pneumonia. She is on fondaparinux for an upper extremity PICC-associated DVT which occurred two months ago. She is getting low-dose TPN with no evidence of refeeding syndrome. She is on fondaparinux, as above, for DVT, and she is on famotidine for GI prophylaxis. She is a FULL CODE. Her parents are involved closely in her care. CRITICAL CARE TIME: 60 minutes.
[2016-12-26 15:07] LABS: Cryptococcal Ag Negative (Negative)
[2016-12-26 17:10] LABS: BFWBC 85 /mm3; MONOCYTES,BODY FLUID 27 %; OTHER CELLS,BODY FLUID 0
[2016-12-26] MEDS: Albumin 25% 25 GM in IV Premix 1 EACH IV SCH (17:13)
[2016-12-26] MEDS: 0.9% Sodium Chloride 1,000 ML IV SCH (17:23)
[2016-12-26] MEDS: Furosemide 5 mg/Hr Drip IV SCH ×2 (17:37)
[2016-12-26 17:57] LABS: Phosphorus 3.6 mg/dL (2.5-4.9)
--- NOTE | 2016-12-26 18:11 | DRSVH ---
[facility] [address] [place] [address] Echocardiogram Report Name: MAE FELIZ NStudy Date: 12/26/2016 Height: 65 in Hospital Exam Location: [facility] Weight: 111 lb Gender: Female BSA: 1.5 m2 : 1985 Age: 31 yrs BP: 112/86 mmHg Reason For Study: SOB, PNEUMONIA Ordering Physician: HOSPITALIST SVHPerformed By: Joi Shetty Referring Physician: DR. Babak WEATHERS Interpretation Summary The left ventricle is normal in size. The ejection fraction is estimated to be 30-35%. Except basal LV segments and apical segments which have preserved or slightly increased contractility, rest all the mid LV segments are severey hypokinetic to akinetic. This pattern favors atypical stress induced cardiomyopathy. The right ventricle is normal size.Right ventricular systolic function is at the lower limits of normal. There is moderate mitral regurgitation. There is mild to moderate tricuspid regurgitation. Right ventricular systolic pressure is estimated to be 25 mmHg plus the clinically estimated CVP which cannot be estimated on this exam. There are small-sized bilateral pleural effusions noted. The patient was in sinus bradycardia with heart rates between 57-58 bpm during the exam. Procedure: A two-dimensional transthoracic echocardiogram with color flow and Doppler was performed. The study quality was technically adequate. There is no prior echocardiogram noted for this patient. The patient was in sinus bradycardia with heart rates between 57-58 bpm during the exam. Left Ventricle: The left ventricle is normal in size. Left ventricular wall thickness is normal. There is no ventricular septal defect visualized. There is no thrombus. A false chord is noted (normal variant). The ejection fraction is estimated to be 30-35%. Except basal LV segments and apical segments which have preserved or slightly increased contractility, rest all the mid LV segments are severey hypokinetic to akinetic. This pattern favors atypical stress induced cardiomyopathy. The E/A wave ratio > 2.0 could be indicative of increased preload or reduced atrial contractility. Clinical correlation is necessary. Right Ventricle: The right ventricle is normal size. A calcified moderator band is seen in the right ventricle. Right ventricular systolic function is at the lower limits of normal. Atria: The left atrium is mildly dilated. Right atrial size is normal. There is no Doppler evidence for an atrial septal defect. Mitral Valve: The mitral valve leaflets appear mildly thickened, but open well. There is moderate mitral regurgitation. Aortic Valve: The aortic valve is trileaflet. The aortic valve opens well. There is no aortic valve stenosis. There is trace aortic regurgitation. Tricuspid Valve: The tricuspid valve is normal. There is mild to moderate tricuspid regurgitation. Right ventricular systolic pressure is estimated to be 25 mmHg plus the clinically estimated CVP which cannot be estimated on this exam. Pulmonic Valve: The pulmonic valve is not well visualized. Great Vessels: The aortic root is normal size. The ascending aorta could not be visualized. The IVC has a measurement of 20 mm. Inspiratory collapse cannot be assessed because of mechanical ventilation, thus CVP cannot be estimated.. Pericardium/ Pleura There is an anterior echo-free space consistent with a fat pad. There is a trivial pericardial effusion noted. There are no echocardiographic indications of cardiac tamponade. There are small-sized bilateral pleural effusions noted. MMode/2D Measurements & Calculations LVIDd: 4.4 cm LA dimension: 3.6 cm RA long axis: 4.1 cm LVOT diam LVIDs: 3.1 cm FS: 30.2 % LA A2 area: 20.2 cm RA area: 8.7 cm AoV Opening EPSS: 0.81 cm LA A4 area: 18.7 cm RA vol: 15.8 ml IVSd: 0.82 cm LA length (vol): 5.7 cm RA : 10.2 ml/m Ao root diam LVPWd: 0.87 cm LA vol: 56.0 ml RVDd major: 5.8 cm : 2.8 cm LA vol index: 36.4 ml/m IVC diam: 2.0 cm EDV(MOD-sp2) LV carroll. diameter/BSA LV sys. diameter/BSA RVD2 (mid) : 111.8 ml (cm/m^2): 2.9 (cm/m^2): 2.0 : 2.1 cm Doppler Measurements & Calculations Ao V2 max: 106.6 cm/secMV E max eder MV E/A: 3.3 TR max eder Ao max P.5 mmHg : 104.8 cm/sec Pulm A Revs Dur : 247.6 cm/sec Ao mean P.0 mmHg MV A max eder TR max PG LVOT Max Eder : 32.0 cm/sec : 24.5 mmHg : 81.1 cm/sec MVA(VTI): 1.7 cm GABI(I,D): 1.9 cm MR ERO: 0.14 cm2 sev ratio: 0.76 MV V2 mean: 42.8 cm/secAo V2 mean LV V1 max PG MR flow rate MV mean P.0 mmHg : 63.6 cm/sec : 69.1 cm3/sec MV V2 VTI: 23.5 cm Ao V2 VTI: 21.5 cm LV V1 VTI MR PISA radius GABI(V,D): 1.9 cm2 : 16.4 cm GABI indexed to BSA (cm^2/m^2): 1.2 Reading Physician:MARY LOU
[2016-12-26] MEDS ORDERED: KCl 40 mEq/100 mL (CENTRAL) 40 MEQ in IV Premix 1 EACH IV ONE (18:20)
[2016-12-26] MEDS: Propofol Inj 1,000,000 MCG in IV Premix 1 EACH IV PRN ×2 (18:36→20:58)
--- NOTE | 2016-12-26 18:55 | ABG ---
DateTimeAnalyzed 18:52:00 -_ pH ____7.407 - pCO2 ___41.7__ -mmHg pO2 ___40.2__ -mmHg HCO3- ___25.7__ -mmol/L ABE ____1.5__ -mmol/L tHb ___10.0__ -g/dL O2Hb ___71.2__ -% COHb ____0.3__ -% MetHb ____2.1__ -% sO2 ___73.0__ -% FIO2 ___60.0__ -% PEEP ___10.0__ -cmH2O Set_RR ___12.0__ -b/min Vt __350.0__ -L Drawn By MT - Date/Time Notified____ 18:55:00 -_ Notified By MT - Notified Whom ___Parimi - B 753 -mmHg tO2 ___10.0__ -Vol% Daryl test N/A -
[2016-12-26] MEDS: Total Parenteral Nutrition 1 BAG IV SCH (20:32)
[2016-12-26] MEDS: Famotidine Inj 20 MG in IV Premix 1 EACH IV SCH (20:33)
[2016-12-27] VITALS (12 sets, daily range): BP systolic 86–124; BP diastolic 49–88; PULSE 60–97; RESP 14–18; O2SAT 97–100
[2016-12-27] MEDS: Chlorhexidine 0.12% 15 mL Oral Solution MT SCH ×6 (00:31→20:40)
[2016-12-27] MEDS: Albumin 25% 25 GM in IV Premix 1 EACH IV SCH ×3 (00:31→16:13)
[2016-12-27] MEDS: Piperacillin-Tazo 3.375 Gm Inj 3.375 GM in Dextrose 5% Minibag Plus 50 ML IV SCH ×3 (00:32→16:13)
[2016-12-27] MEDS: Hydrocortisone 50 mg/mL 2 mL Inj IVPUSH SCH ×3 (00:33→16:14)
--- NOTE | 2016-12-27 02:05 | PROCED ---
[address] [address] PROCEDURE NOTE PATIENT: MAE FELIZ : 1985 MR#: [id number] ADMIT: 12/18/2016 JOB ID: [id number] DATE OF SERVICE: POSTOPERATIVE DIAGNOSIS(ES): PREOPERATIVE DIAGNOSIS(ES): PROCEDURE: Intubation. SURGEON: Jacinto Moore MD. INDICATION FOR PROCEDURE: Hypoxic respiratory failure secondary to pulmonary edema. PROCEDURE IN DETAIL: The patient was saturating 84-86% on high-flow nasal cannula when I entered the room. Respiratory therapy was present and placed her on 100% Ambu mask, which she was tolerating this poorly in the awake state. The 30 mg of propofol was given to relax the patient allowing me to assist with her ventilation. I was able to bag mask ventilate her to an oxygen saturation of 100%. At this time she remained hemodynamically stable. So an additional 30 mg of propofol was given for a total dose of 60 mg as well as 40 mg of succinylcholine. The patient was continued to bag mask ventilate until the succinylcholine had taken affect. At that time glide scope was utilized due to the patient's small mouth opening. A reasonable visualization of the vocal cords was obtained although she was anterior with regards to her larynx. There was visible pink, frothy material at the level of the vocal cords. Placement of a 7.5 endotracheal tube took slightly longer than average given the anterior nature of the larynx, but eventually was successfully cannulated. Tube was secured by respiratory therapy. There was a positive end-tidal colorimetric change on the indicator. There was visible pink liquid in the endotracheal tube at the completion of the intubation. The patient remained hemodynamically stable at this time and care was transferred to the ICU team for further management.
[2016-12-27] MEDS ORDERED: KCl 40 mEq/100 mL (CENTRAL) 40 MEQ in IV Premix 1 EACH IV ONE ×4 (02:15→20:00)
[2016-12-27] MEDS: Furosemide 5 mg/Hr Drip IV SCH ×4 (02:40→13:40)
--- NOTE | 2016-12-27 03:24 | CONS ---
[address] [address] CONSULTATION REPORT PATIENT: MAE FELIZ : 1985 MR#: [id number] ADMIT: 12/18/2016 JOB ID: [id number] DATE OF SERVICE: 12/26/2016 CHIEF COMPLAINT: Increased O2 requirement. HISTORY OF PRESENT ILLNESS: The patient is an immunocompromised 31-year-old woman with Crohn disease, on prednisone and Humira, who has been hospitalized at [facility] for intractable nausea and vomiting since December 18. She has been diagnosed with stenosis of her ileostomy and had treatment with dilation of the distal ileal stricture. 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 Patient developed a low-grade temperature and, in the past 48 hours, then developed basically ARDS and increased O2 requirement. Today, she was diagnosed with severe bilateral opacities with air bronchograms consistent with bilateral infiltrates as well as large bilateral pleural effusions. She required urgent intubation. She had urgent echocardiogram, which unfortunately showed what appears to be stress cardiomyopathy with ejection fraction of 30% to 35%. Cardiology is consulted to assist with management. At this moment in time, I cannot obtain any history. The patient is intubated and sedated. There is no family in the room, but she appears to be comfortable. PHYSICAL EXAMINATION: Vital signs: Temperature 36.8. T-max was 38.2 on December 24, 2016. Blood pressure 89/65, pulse 60 beats per minute, satting 97% on 60% FiO2 via ventilator. General: A Cachectic woman lying in bed, in no apparent distress. Eyes: No scleral icterus. Neck: Supple. No carotid bruits. Heart sounds are distant. No obvious murmurs, rubs, or gallops. Lungs with diminished breath sounds anteriorly and bilateral wheezing. Abdomen: I do not hear any breath sounds. She has an ostomy that contains greenish liquid. There is no formed stool or even soft stool in the bag, just pure liquid. Extremities show moderate bilateral edema of her feet, but otherwise her legs are small, cachectic. Serial compression devices are on. STUDIES: EKG performed December 25, 2016 showed sinus bradycardia, 57 beats per minute. Normal axis. No left ventricular hypertrophy. There is ST elevation in lead 1 and aVL as well as symmetric T-wave inversions throughout the precordium. There are no reciprocal ST depressions, and the ST elevations that are present are quite subtle and do not meet criteria for . Prior EKG on December 21, 2016 showed sinus tachycardia, 124 beats per minute. Normal axis. No left ventricular hypertrophy. Poor R-wave progression in precordial leads. At that time, she did not have deep symmetric T-wave inversions throughout the precordium and she did not have the subtle ST elevations anteriorly. Echocardiogram I have personally reviewed and I appreciate Dr. Chen's read. EF is 30% to 35%. There is atypical takotsubo cardiomyopathy pattern with severe hypokinesis in septum with the exception of basal LV segment and apical segments. There were no significant valvular abnormalities. Labs reviewed. She is anemic, hematocrit of 32%. Creatinine 0.6, albumin 3.2, total protein 4.4. Chest CT was read by Dr. Bonds. He documented severe bilateral pneumonia, small bilateral pleural effusions, and opacification of the right lower lobe bronchus consistent with mucus plugging. Small amount of ascites and severe subcutaneous edema. ASSESSMENT AND PLAN: This is a very unfortunate 31-year-old woman with Crohn's. 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 I agree with the medications initiated by the hospitalist physician, including albumin and Lasix drip. Her dose was just increased from 5 mg/hour to 10 mg/hour. Should she need pressors, I think she would be a good candidate for dopamine or dobutamine. She is not a good candidate for cardiac catheterization due to her cachexia and frailty. She has a history of presumed hypercoagulable state, for which she takes fondaparinux as her only other cardiovascular medication. I think if she continues to maintain her respiratory status and we identify the causative action of her infection and treat it, then her LV systolic function will improve as the hemodynamic stress improves. I agree with supportive therapy initiated by hospitalist physician. If blood pressure allows, tomorrow we can initiate either beta-luis carlos or DANICA inhibitor. Thank you very much for the opportunity to evaluate this delightful lady.
[2016-12-27] MEDS ORDERED: Glucose 40% Oral Gel 15 Gm Tube PO PRN (03:25)
--- NOTE | 2016-12-27 04:21 | ENDO ---
[address] [address] ENDOSCOPY PROCEDURE PATIENT: MAE FELIZ : 1985 MR#: [id number] ADMIT: 12/18/2016 JOB ID: [id number] DATE OF SERVICE: 12/26/2016 PROCEDURE: Bronchoscopy procedure note performed by Loraine Vo MD, Pulmonary Medicine. INDICATION: Respiratory failure, bilateral pneumonia. Informed consent was obtained from the patient's mother who is legal next of kin after risks and benefits of the procedure were discussed. DESCRIPTION OF PROCEDURE: The patient was intubated prior to the procedure. Lidocaine was passed through the endotracheal tube. She was on propofol and fentanyl IV infusions for sedation already. Scope was passed through the ET tube. Trachea was visualized. Tip of the ET tube was quite close to the dina, less than 2 cm. We then proceeded to perform a complete left and right-sided airway evaluation. All of the airways were evaluated and completely normal in appearance. There was a slightly different anatomy on the left side with a more acute angle for the lower lobe airways than is usually seen, but no abnormalities. There were no abnormal secretions, mucosal lesions, endobronchial lesions or evidence of bleeding. I initially performed a lavage in the right upper lobe anterior segment. Faint blood-tinged fluid return was obtained. There was no evidence of valvular hemorrhage. We then proceeded to do a lavage in the lingula on the left side. Here the fluid was a pale yellowish orange-tinged and on serial lavages, there was no significant bleeding that would be consistent with alveolar hemorrhage. There was no evidence of mucus plugging in the lower lobes despite dense consolidation seen on CT scan. FINDINGS: Normal appearing airways. Fluid is blood-tinged on the right and yellowish orange on the left, not consistent with alveolar hemorrhage. Samples of right upper lobe anterior segment, BAL and lingular BAL were both pooled, approximately 60 cc total. TESTING: BAL was pooled and sent for bacterial, fungal, AFB, pneumocystis, viral cultures, as well as cytology and cell count with differential. The patient tolerated the procedure well. There were no complications. [facility]
--- NOTE | 2016-12-27 04:34 | ABG ---
DateTimeAnalyzed 04:30:00 -_ pH ____7.478 - 7.350 7.450 pCO2 ___36.8__ -mmHg 35.0 45.0 pO2 106 -mmHg 69.0 116 HCO3- ___26.9__ -mmol/L 22.0 26.0 ABE ____3.7__ -mmol/L -2.0 2.0 tHb ___10.2__ -g/dL O2Hb ___94.3__ -% COHb ____0.4__ -% MetHb ____2.3__ -% sO2 ___96.9__ -% FIO2 ___60.0__ -% PRVC 14 - PEEP ___10.0__ -cmH2O Set_RR ___14.0__ -b/min Vt __350.0__ -L Drawn By MM - Date/Time Notified____ 04:33:00 -_ Spontaneous_RR ___14.0__ -b/min Oxygen Device 1 VENTILATOR - Notified By MM - Notified Whom LESIA, RN - B 758 -mmHg tO2 ___13.7__ -Vol% Daryl test N/A -
[2016-12-27 07:10] LABS: BASOPHILS % (AUTO) 0.3 % (0-3); EOSINOPHILS % (AUTO) 0 % (0-5); MONOCYTES % (AUTO) 2.4 % (4-12); Mean Corpuscular Hemoglobin 25.1 pg (27.0-35.0); Mean Corpuscular Volume 78.4 fL (81-100); NEUTROPHILS % (AUTO) 90.5 % (40-74)
[2016-12-27 07:34] LABS: Platelet Count 33 bil/L (150-400)
[2016-12-27 07:42] LABS: Magnesium 1.8 mg/dL (1.6-2.6); Phosphorus 2.7 mg/dL (2.5-4.9)
[2016-12-27] MEDS ORDERED: Insulin LISPRO 300 Unit/3 mL Inj SUBQ SCH (08:00)
--- NOTE | 2016-12-27 08:34 | PCM.PHAPRO ---
Progress tpn . PARENTERAL NUTRITION ORDERS 5 27-Dec-16 Standard Hang Time: 2100 Substrates Total kcal: 1444 AMINO ACIDS 65 g DEXTROSE 120 g Total Volume (mL): 1000 LIPIDS 35 g Sterile Water for Injection QS mL To Infuse Over (hrs): 24 Total Volume 1000 mL At at a rate of (mL/hr): 42 Additives Sodium Chloride 30 mEq "typical" daily requirements Sodium Acetate 10 mEq Sodium 50-120mEq Potassium Chloride 60 mEq Potassium 60-120mEq Potassium Phosphate 30 mEq Phosphate 20-40mEq Calcium Gluconate 4.5 mEq Magnesium 8-32mEq Magnesium Sulfate 8 mEq Calcium 9-22mEq Acetate* 80-120mEq Chloride* 80-120mEq Regular Insulin units *Depending on acid-base status Famotidine mg Multivitamins 1 std dose Insulin Regimen Trace Elements 1 std dose none Thiamine mg Regular Low Intensity Subcut Folic Acid mg Regular Medium Intensity Subcut Ascorbic Acid mg Regular High Intensity Subcut Regular Insulin Infusion Other: Special Instructions: To be infused via central line only. For delay or inturruption of TPN contact the pharmacist for alternative replacement solution. Signature Date: MAE FELIZ 0 [facility] Surya Petersen Dec 27, 2016 08:34
[2016-12-27] MEDS: Famotidine Inj 20 MG in IV Premix 1 EACH IV SCH ×2 (08:36→20:42)
[2016-12-27] MEDS: Nystatin 100,000 Unit/mL 5 mL Suspension PO SCH ×2 (08:38→20:42)
[2016-12-27] MEDS: Propofol Inj 1,000,000 MCG in IV Premix 1 EACH IV PRN ×2 (08:38→20:40)
[2016-12-27] MEDS: DOBUTamine 500 mg/250 D5W 500,000 MCG in IV Premix 1 EACH IV SCH (11:25)
[2016-12-27 11:26] LABS: Magnesium 1.9 mg/dL (1.6-2.6); Phosphorus 3.1 mg/dL (2.5-4.9)
--- NOTE | 2016-12-27 11:27 | DRSVH ---
PROCEDURE: X-RAY CHEST ONE VIEW, PORTABLE ([id number]) INDICATIONS: PNA TECHNIQUE: One view of the chest was acquired. COMPARISON: [facility], CT, CT CHEST WO CON, 12/26/2016, 14:02[facility], CR, XR CHEST 1VW (PORTABLE), 12/26/2016, 12:22. FINDINGS: Surgical changes and devices: Endotracheal tube tip demonstrated approximately 3.6 cm from the dina . A nasogastric tube extending into the stomach with the tip not included on current study. A right internal jugular catheter is demonstrated extending into the superior vena cava. Lungs and pleura: There are confluent bilateral perihilar airspace opacities redemonstrated consisten t with consolidation, similar in appearance to the prior study. Left retrocardiac consolidation is a lso again noted. There are also bilateral pleural effusions, moderate on the left and smaller right. Mediastinum: Mediastinal contours appear unchanged. Heart size is normal. Bones and chest wall: No suspicious bony lesions. Overlying soft tissues appear unremarkable. IMPRESSION: 1. Persistent bilateral airspace consolidation with a perihilar predominance as well as left retroca rdiac consolidation. Findings most likely represent pneumonia including from atypical etiologies. 2. Persistent bilateral pleural effusions. Dictated by: Chris Heredia M.D. on 12/27/2016 at 11:18 Approved by: Chris Heredia M.D. on 12/27/2016 at 11:20
--- NOTE | 2016-12-27 12:49 | PCM.PNSURG ---
Subjective Date of Service: Dec 27, 2016 Date of Service: Dec 27, 2016 Visit Information: Subjective: no acute events overnight. hb stable 10. no overt signs gi bleed. intubated. spoke with mother and family and answered questions from gi standpoint Postop General: No Complaints Objective Vital Sign- Last 8 Hours Date Time Temp Pulse Resp B/P Pulse Ox O2 Delivery O2 Flow Rate FiO2 12/27/16 11:45 65 86/59 100 45 12/27/16 08:06 60 12/27/16 08:06 Ventilator 12/27/16 08:06 37.0 60 14 91/66 100 Mechanical Ventilator 55 12/27/16 07:45 61 90/67 100 55 Intake and Output- Last 8 Hour 12/27/16 Cumulative From/Thru 07:00 12/18/16 14:54 - 12/27/16 06:43 Intake Total 1197 ml 72672 ml Output Total 3130 ml 47784 ml Balance -1933 ml 8665 ml Intake Oral 8710 ml IV Total 700 ml 16095 ml TPN/PPN 497 ml 1579 ml Packed Cells 300 ml Tube Irrigant 60 ml Output Urine Total 2950 ml 57581 ml Stool Total 180 ml 30329 ml Urine/Stool Mix 700 ml Gastric Drainage Total 275 ml # Voids 1 General: Alert Neck: Supple Heart: Exam Unremarkable Abdomen: Benign, Soft, Non-tender, Non-distended, Normoactive bowel tones, Other (ileostomy bag ) Extremities: Distal Pulses Palpable Result Diagram: 12/27/16 0650 12/27/16 0650 Assessment & Plan Impression 31 year old woman that recently moved to the [facility] from the [facility] with a complex history of Crohn's disease s/p total proctocolectomy with end ileostomy performed at [facility] in [place], [place], RLQ ileostomy s/p total proctocolectomy secondary to Crohn's disease, 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 However clinically she is passing gas and passing fecal material, Abdominal pain; chronic. Likely secondary to chronic, low grade stenosis and po attempts for maximal intake to maintain nutrition. She is on chronic glucocorticoids with Humira therapy, multiple prior obstructions/near obstructions near ostomy, recurrent flares, and recent left UE DVT secondary to PICC placement for TPN, who presented to the ED 12/18/2016 with acute on chronic diffuse abdominal pain, vomiting, and nausea. s/p ileostomy with dilation in past at ileostomy stenosis site. CT A/P wo/contrast 12/18: No free air; low density stones vs free air in gallbladder; dilated loops small bowel likely related to chronic low-grade obstruction. LUE doppler 12/23: Pre-Garrett report, not finalized: The basilic vein is not identified otherwise no definite venous thrombosis seen. CT A/P wo contrast 12/24: Suboptimal examination due to lack of oral and intravenous contrast. There is total colectomy and right lower quadrant ileostomy. Mild concentric thickening of a short segment of small bowel loop is noted in the right lower quadrant. There is decreased overall small bowel distention compared to 12/18/2016. A small amount of free peritoneal fluid, which is new.Small bilateral pleural effusions with bibasilar consolidation or atelectasis. Cannot rule out bibasilar pneumonia.Diffuse body wall edema and subcutaneous fluid collection with pockets of subcutaneous gas. Cannot rule out postoperative wound infection.There is mesenteric and retroperitoneal lymphadenopathy, which is nonspecific. CXR 12/24: Report pending; personal read: Bilateral pleural effusions, R > L that extend from bases to mid-castillo; will await final report Stool PCR 12/24: Negative for screened pathogens Brain CT 12/26: Ordered for decreased LOC: No acute intracranial abnormalities Recs: - Recs per Pulmonary team - Continue TPN - diet per Nutrition consultation team. - Next Humira due: 12/26; patient states she will need Rx (previous dose 12/12) - Must be provided by patient/family; not stocked in hospital pharmacy - Has appt with Dr. Dominic Zaidi at on 12/31 Patient has history of noncompliance, and removed Dobhoff the day of previous discharge while she was on her way home. Dobhoff was also removed while she was going home after the admission prior to that. Nutrition is essential for her, as she likely requires a complete revision, but her nutritional status is too poor to promote adequate healing. Previous discussions have included SNF. She is not a PEG candidate, as it would likely be more detrimental than beneficial especially because of the poor nutritional status indicated by low albumin. This is have significant impact on wound healing. Tube feeds were anticipated to last at least three months. Due to the history of noncompliance with Dobhoff and need for surgical intervention, TPN is next best choice. This does not come without risk, as her previous TPN site led to a DVT. She is still receiving anticoagulation at this time. Risks of TPN explained to patient, and because her need for nutrition is becoming increasingly critical, it is pursued at this time. 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 On 12/24, she was urgently taken to endoscopy for another dilation of stoma, and then transferred to CCU for continued care. She has remained in critical condition with decreased respiratory function. Diuretics and O2 delivery methods ordered. Dr. Valdez returns on Friday 12/29 Problems: VTE Prophylaxis: SCDs, Other (On arixtra ) Resuscitation Status: CPR: Attempt Resuscitation Juwan Smith MD Dec 27, 2016 12:49
--- NOTE | 2016-12-27 13:14 | PROG NOTE ---
[address] [address] PROGRESS NOTE PATIENT: MAE FELIZ : 1985 MR#: [id number] ADMIT: 12/18/2016 JOB ID: [id number] CORRECTED REPORT: DATE: 12/27/2016 PULMONARY CRITICAL CARE PROGRESS NOTE: The patient is a 31-year-old woman with Crohn disease, severe protein calorie malnutrition, ileostomy stenosis who is in the ICU with acute hypoxic respiratory failure with cardiomyopathy. INTERVAL HISTORY: The patient was intubated yesterday afternoon because of progressively worsening hypoxemia with saturations down to the 80s on 100% FiO2 on high-flow nasal cannula. Following intubation, she also underwent a bronchoscopy which did not show any evidence of alveolar hemorrhage and without any unusual or abnormal secretions. She also had an echocardiogram which showed evidence of cardiomyopathy. She has been on a Lasix drip all night and has diuresed well with that, but is now getting slightly hypotensive with blood pressures in the 80s systolic. REVIEW OF SYSTEMS: Could not be obtained. PHYSICAL EXAMINATION: Vital signs reviewed. Temperature 37, pulse 60, respirations 14, BP 91/66, sats 100% on 55% FiO2 on 10 cm of PEEP. General: Thin, cachectic-appearing woman, but with cushingoid puffy facies. She is intubated and sedated and unresponsive at this time although the nurses tell me that she does wake up with turns and mouth care. Chest relatively clear compared to yesterday. I do not really hear any crackles. LABORATORIES: Reviewed. WBC 6.7, hemoglobin 10, platelets are down to 33. Sodium 146, potassium is down to 2.6. Creatinine is 0.56, which is stable. Procalcitonin yesterday was 0.14. Cultures: BAL samples are undergoing testing and are still pending for the most part. BAL viral panel though is negative. Chest x-ray today shows hilar predominant dense consolidation in a bat wing/ hilar predominant pattern bilaterally. Atelectasis versus pneumonia with air bronchograms. Right hemidiaphragm is clean. The ET tube is in appropriate position. Arterial blood gas this morning shows pH of 7.47, pCO2 of 36, pO2 of 106 and bicarbonate of 26.9. ASSESSMENT AND RECOMMENDATIONS: 1. Acute hypoxic respiratory failure. 2. Cardiogenic pulmonary edema. 3. Cardiomyopathy with EF 30%-35%. 4. Crohn disease status post colectomy and ileostomy now with stomal stenosis. 5. Immunocompromise due to Humira and steroids for Crohn disease. 6. Protein calorie malnutrition. 7. Severe hypoalbuminemia with albumin less than 1. 8. Upper extremity PICC associated DVT October 2016, on fondaparinux. 9. Thrombocytopenia. A complex 31-year-old woman with multiple medical problems as listed above was moved to the ICU for rapidly progressive respiratory distress and respiratory failure requiring mechanical ventilation. Based on her echo, she has cardiomyopathy which was not previously known. She is stable on mechanical ventilation with FiO2 of 50% and PEEP of 10, but actually think the FiO2 can be weaned. Technically she would not meet criteria for ARDS if all of her pulmonary issues are due to flash pulmonary edema. She has been on a Lasix drip at 10 mg an hour overnight and has diuresed very well overnight and blood pressure is starting to drift down now so I backed off on the Lasix drip down to 5 mg an hour. I also added low-dose dobutamine. We will try to keep this dose between 2 and 5 mcg with her blood pressure drifting lower. Cardiology, Dr. Bowser, is consulting and I appreciate any additional recommendations she has. From an infection standpoint, her BAL testing is still pending as is serologies for fungal organisms, but given the rapidity of onset, this is looking less likely to be infection. However, there may be some component of aspiration involved so she is on Zosyn for now. She is getting hydrocortisone 100 mg IV q.8 for stress dose steroids. She is on fondaparinux and I am worried about her thrombocytopenia with this and I think we would have to stop the fondaparinux now that her platelets have dropped to 30 and she has had two full months of anticoagulation for her DVT. CRITICAL CARE TIME: 60 minutes. Corrected by BD 12/30/16 at 8:53 am word edit
[2016-12-27] MEDS: fentaNYL 2,500 mCg/250 mL 2,500 MCG in IV Premix 1 EACH IV PRN (14:34)
[2016-12-27] MEDS: 0.9% Sodium Chloride 1,000 ML IV SCH (16:14)
--- NOTE | 2016-12-27 18:30 | PCM.PNMED ---
Subjective Date of Service Dec 27, 2016 Subjective Overnight patient remained on ventilator. Which appears to be tolerating well. Systolic blood pressure was low, however preserved her MAP. Blood sugar elevated, and potassium continued to drop, and received supplementation throughout the night. Family is at bedside, discussed the goals of treatment, explained current interventions, plans, and answered questions, Exam Vital Signs Vital Sign - Last Date Time Temp Pulse Resp B/P Pulse Ox O2 Delivery O2 Flow Rate FiO2 12/27/16 11:45 65 86/59 100 45 12/27/16 08:06 Ventilator 12/27/16 08:06 37.0 14 12/26/16 11:02 40 Intake and Output 12/26/16 12/26/16 12/27/16 Cumulative From/Thru 15:00 23:00 07:00 12/18/16 14:54 - 12/27/16 06:43 Intake Total 1144 ml 1197 ml 66926 ml Output Total 1545 ml 3130 ml 26779 ml Balance -401 ml -1933 ml 8665 ml Intake Oral 20 ml 8710 ml IV Total 555 ml 700 ml 51990 ml TPN/PPN 509 ml 497 ml 1579 ml Packed Cells 300 ml Tube Irrigant 60 ml 60 ml Output Urine Total 1150 ml 2950 ml 56966 ml Stool Total 120 ml 180 ml 08856 ml Urine/Stool Mix 700 ml Gastric Drainage Total 275 ml 275 ml # Voids 1 Exam General: Thin cachectic woman, sedated. HEENT: Orogastric, endotracheal tube inserted through oropharynx, in place, blood. Unable to evaluate oropharynx due to tubes. Mucous membranes dry. Central venous catheter right internal jugular. Chest & Lungs: Diffuse rales appreciated. Cardiovascular: bradycardic, regular rhythm, no murmurs noted Pulses: Weak radial pulses bilaterally Abdomen: Non-distended,Ileostomy in place, stoma free of erythema and leakage, scattered abrasions over her abdomen. Extremities: Cool, Severe bilateral pitting edema from feet up to both knees. Skin: Dry cracking skin diffusely on back and extremities, early pressure ulcer changes on sacrum and iliac. Abrasions to back and legs Neurological: Chemically sedated and paralyzed Psych: Sedated Lab and Diagnostics Result Diagram: 12/27/16 0650 12/27/16 0650 X-Rays, CTs and MRIs Portable chest x-ray performed 12/27/2016 IMPRESSION: 1. Persistent bilateral airspace consolidation with a perihilar predominance as well as left retrocardiac consolidation. Findings most likely represent pneumonia including from atypical etiologies. 2. Persistent bilateral pleural effusions. Head CT without contrast performed 12/26/2016 IMPRESSION: 1. Severe bilateral pneumonia. 2. Small bilateral pleural effusions. 3. Opacification of the right lower lobe bronchus, consistent with mucous plugging. 4. Small amount of ascites. 5. Severe abdominal subcutaneous edema. 6. Findings discussed with Dr. Brandt on 17 at 1439 hrs. Dictated by: Calvin Bonds M.D. on 12/26/2016 at 14:[address] without contrast performed 12/26/2016 IMPRESSION: 1. No acute intracranial abnormality. Dictated by: Chris Heredia M.D. on 12/26/2016 at 8:25 Chest x-ray performed 12/26/2016 IMPRESSION: 1. No change from prior examination consistent with pulmonary edema and/or diffuse bilateral inflammatory process. Dictated by: Jimmy ESCALANTE Interpreted: Keeley Bethea MD on 12/26/2016 at 9:29 Portable chest x-ray performed December 22 IMPRESSION: 1. Pulmonary edema and/or diffuse bilateral pneumonia similar to prior examination. 2. Small pleural effusions. Dictated by: Jimmy ESCALANTE Interpreted: Keeley Bethea MD on 12/25/2016 at 9:05 CT ABDOMEN AND PELVIS WITHOUT CONTRAST IMPRESSION: 1. Free air is not identified. 2. Markedly distended colon suggesting distal colonic obstruction. Rectal tube may be of benefit. 3. Question of low-density stones versus particles of air in the gallbladder. Ultrasound is suggested. ADDENDUM: Additional information is that the patient has had a colectomy. The distended loops therefore must be small bowel. In addition there is an ileostomy rather an ileal loop into the right lower quadrant. In the operative from this is reportedly fairly good. This would indicate that C. dilated small bowel loops are related to a chronic low-grade obstruction or a relatively acute high-grade obstruction. No wall thickening or air in the tsai of the dilated loops is seen. Since the patient does not have obstructive symptoms clinically this is likely to be a distended loops from chronic partial low grade obstruction of a small bowel loop. Dictated by: Esteban Cabrera M.D. on 12/18/2016 at 18:44 US ABDOMEN, LIMITED IMPRESSION: Multiple stones in the gallbladder but no free air or changes to indicate acute cholecystitis. Dictated by: Esteban Cabrera M.D. on 12/18/2016 at 19:49 X-RAY ACUTE ABDOMINAL SERIES IMPRESSION: Changes are consistent with partial or early small bowel obstruction. Dictated by: Esteban Cabrera M.D. on 12/18/2016 at 20:37 Cardiac Echo Impressions Complete echocardiogram performed 12/26/2016 Interpretation Summary The left ventricle is normal in size. The ejection fraction is estimated to be 30-35%. Except basal LV segments and apical segments which have preserved or slightly increased contractility, rest all the mid LV segments are severey hypokinetic to akinetic. This pattern favors atypical stress induced cardiomyopathy. The right ventricle is normal size.Right ventricular systolic function is at the lower limits of normal. There is moderate mitral regurgitation. There is mild to moderate tricuspid regurgitation. Right ventricular systolic pressure is estimated to be 25 mmHg plus the clinically estimated CVP which cannot be estimated on this exam. There are small-sized bilateral pleural effusions noted. The patient was in sinus bradycardia with heart rates between 57-58 bpm during the exam. Assessment & Plan Terra Beauchamp is an 31 year old woman that recently moved to the [facility] from the [facility] with a complex history of Crohn's disease s/p total proctocolectomy with end ileostomy performed at [facility] in [place], [place]. She is on chronic glucocorticoids with Humira therapy, multiple prior obstructions/near obstructions near ostomy, recurrent flares, and recent left UE DVT secondary to PICC placement for TPN, who presented to the ED 2016 with acute on chronic diffuse abdominal pain, vomiting, and nausea. on hospital day 7 patient developed acute hypoxic respiratory failure and was transferred to the ICU. Hospital day 10 ICU, day 4 Ventilator day 2 Antibiotics/Antifungal day 2 # Acute hypoxemic respiratory failure, not present on admission. Stable -Patient was placed on high flow nasal cannula, continued to desaturate on maximal settings, patient was intubated and placed on ventilator. Ventilator day 2. -Most likely due to fluid overload evidenced on x-ray has diffuse edema however fungal or atypical infection, cardiac etiology, and refeeding syndrome are differentials. -Now on Lasix drip per pulmonology, -Cardiac etiology :Echocardiogram: Ejection fraction 30-35% -Infectious etiology: Chest CT without contrast demonstrated Severe bilateral pneumonia, small bilateral pleural effusions, opacifications consistent with mucous plugging, Continue Zosyn as well as Bactrim for pneumocystis Bronchoscopy completed, no gross abnormalities. Awaiting bronchial alveolar lavage serology results. Fungal blood cultures 2 Pending LDH elevated. Fungal Antibodies = Elevated. May be false positive secondary to Zosyn. Continue Cresemba per ID. Histo urine antigen Pending. cryptococcus antigen Negative. -Renal Etiology - Urine protein, -Autoimmune - Panel pending. -Central respiratory depression is also in etiology, we have DC'd or reduced the doses for Roxicodone, Versed, Dilaudid, lorazepam. -Infectious disease, critical care pulmonology, and gastroenterology following in consultation on the case. We appreciate their time, evaluation, and recommendations. -Now that patient is sedated and she may tolerate feeding tube modalities. -Patient remains 8.6 L positive, will continue diuresis. # Acute congestive heart failure, not present on admission, management ongoing. -Echocardiogram showed an ejection fraction of 30-35% with an atypical stress- induced cardiomyopathy. -Patient became hypotensive, most likely due to multiple doses of furosemide. -Amiodarone drip to supplement blood pressure, goal between 2 and 5 g. -Cardiology is consulting, we appreciate their evaluation, and recommendations regarding the case. # Acute hyperkalemia, not present on admission, treatment ongoing. -Serum potassium consistently low despite parenteral repletion, most likely due to furosemide. -Continue repletion, -monitor on telemetry -Have weaned down furosemide -Requesting Pharmacy to add insulin to TPN. # Acute aspiration, not present on admission, treatment initiated -Patient was receiving oral food, she began to cough and it was perceived that she was aspirating. -Infectious disease was notified, patient restarted on Zosyn IV. -Swallow evaluation was ordered, however patient's O2 demands in respiratory distress cause the evaluation of the postponed. -OG tube in place secondary to endotracheal tube and sedation. # Crohn's disease with RLQ high output Ileostomy with Severe protein/calorie malnutrition, present on admission - Continue prednisone, hold Humira. - Patient not a PEG tube candidate per GI but surgical tech believe this would be preferable option. - She has previously been noncompliant with Dobhoff due to discomfort and anxiety. - Patient would prefer TPN. Not a GI tube candidate. - Fondaparinux has been discontinued. She has completed 2 full months of treatment. -Patient is receiving trickle feeds 10 mL/h via OG tube, along with TPN. #Thrombocytopenia, acute, not present on admission. Worsening - She reports that her edematous face and feet coincided with initiation of Prednisone and Arixtra. She has been slowly tapering off of Prednisone, but the edema of her face continues to worsen. - She also is developing thrombocytopenia with her platelets continuing to decrease to critically low today. Part of the decrease may be dilutional with all the increased fluids, but her platelet levels have been trending downwards. - She continues on a stress dose of hydrocortisone 100 mg every 8 hours. - Heparin Antibodies - Pending - Fondaparinux discontinued as above. # Acute anemia, not present on admission, Stable -Most likely delusional due to the numerous liters of fluid she has received -2 units of packed red blood cells were transfused, this in conjunction with diuresis has brought her hemoglobin to greater than 10. -Continue to monitor # Fever, acute - resolved -Has not reoccurred since transfer to the intensive care unit. Remains afebrile -Patient was noted to develop a fever this morning. She continues to be hypotensive despite over 6 liters of fluids yesterday. She is having worsening abd pain, especially in the LLQ. -Patient is likely septic and will undergo a sepsis workup. Source is likely her abdomen. Concerns for abscess formation and ischemia -Blood cultures ordered, CT Abd pelvis without contrast due to allergy, WIll initiate empiric antibiotics after blood cultures drawn. Will continue hydrating copiously. -Infectious disease continues to consult # Hypovolemic hyponatremia, chronic, present on admission - resolved. -Patient's volume status has been repleted, sodium has returned to normal levels. # Abdominal pain in the setting of Crohn's disease s/p total proctocolectomy with RLQ ileostomy, acute, present on admission -She has been complaining of generalized Abd pain, worse in the LLQ. Pain is associated with nausea and vomiting. Likely due to strictures and obstruction -Continuing to have generalized abd pain. May require repeat imaging and NGT decompression if obstruction is worsens. # Early or partial small bowel obstruction, acute, present on admission -Most recent abdominal imaging shows evidence of developing small bowel obstruction and other strictures. She is still having high ostomy output, although mostly just liquids. Status post stomal dilation December 24 -GI consulted, will continue to follow, appreciate time and input. -Continue IVF while having poor PO intake -Surgery consulted and following. Appreciate time and input. # Hypochromic microcytic anemia, likely iron deficiency, chronic, present on admission -Due to poor oral intake and poor nutritional status -Consider iron supplementation as outpatient # Anxiety and Depression, POA Patient's anxiety and depression are related to disease condition but creating significant morbidity none the less. Will continue Klonopin 0.5mg BID and up to FLuoxetine 20mg daily Patient is now under general sedation. # Likely Oral Candidiasis, acute Secondary to Prednisone usage. Disposition: Anticipate several more days in the CCU due to low blood pressures necessitating pharmacologic IV support. Hospital course difficult to anticipate , may require transfer to tertiary receiving facility. On 12/27/2016 I discussed concerns of full code and likelihood of meaningful recovery following a cardiac arrest and resuscitation with mother of patient. Asked mother of patient to consider filling out a POLST form, which I supplied for her. At this time patient remains full code. Pain Evaluation: Adequate Pain Control GI Prophylaxis: H2 luis carlos VTE Prophylaxis: SCDs VTE Mechanical Devices: Intermittant Pneumatic CD Resuscitation Status: CPR: Attempt Resuscitation Attending Statement The patient was seen and examined together with Dr. Couch on 12/27/2016 and I agree with the history, exam and plan as outlined in the note above. . Humberto Couch DO Dec 27, 2016 13:18 Srinivas Abbott MD Dec 27, 2016 18:35
[2016-12-27] MEDS: Total Parenteral Nutrition 1 BAG IV SCH (20:44)
[2016-12-28] VITALS (13 sets, daily range): BP systolic 80–116; BP diastolic 54–87; PULSE 70–95; RESP 14–17; O2SAT 95–100
[2016-12-28] MEDS: Hydrocortisone 50 mg/mL 2 mL Inj IVPUSH SCH ×3 (00:44→17:10)
[2016-12-28] MEDS: Piperacillin-Tazo 3.375 Gm Inj 3.375 GM in Dextrose 5% Minibag Plus 50 ML IV SCH ×3 (00:44→17:10)
[2016-12-28] MEDS: Albumin 25% 25 GM in IV Premix 1 EACH IV SCH ×3 (00:44→17:10)
[2016-12-28] MEDS: Chlorhexidine 0.12% 15 mL Oral Solution MT SCH ×6 (00:44→21:09)
[2016-12-28] MEDS: KCl 40 mEq/100 mL IV Premix (K < 3 & Creat <2) IV SCH ×4 (02:08→18:13)
[2016-12-28 05:14] LABS: BASOPHILS % (AUTO) 0.5 % (0-3); EOSINOPHILS % (AUTO) 0 % (0-5); MONOCYTES % (AUTO) 3.3 % (4-12); Mean Corpuscular Volume 78.9 fL (81-100); NEUTROPHILS % (AUTO) 89.7 % (40-74)
[2016-12-28] MEDS: Propofol Inj 1,000,000 MCG in IV Premix 1 EACH IV PRN ×3 (05:38→21:44)
[2016-12-28] MEDS ORDERED: Propofol 10,000 mCg/mL 20 mL Inj ONE (05:52)
[2016-12-28] MEDS ORDERED: Succinylcholine Chloride 20 mg/mL 5 mL Inj ONE (05:52)
[2016-12-28 06:02] LABS: Platelet Count 40 bil/L (150-400)
--- NOTE | 2016-12-28 08:46 | PCM.PNMED ---
Subjective Date of Service Dec 28, 2016 Subjective Patient intubated and sedated in the ICU so no ROS obtained. No events reported overnight. Exam Vital Signs Vital Sign - Last Date Time Temp Pulse Resp B/P Pulse Ox O2 Delivery O2 Flow Rate FiO2 12/28/16 07:21 37.1 77 14 102/78 97 Mechanical Ventilator 35 12/26/16 11:02 40 Intake and Output 12/27/16 12/27/16 12/28/16 Cumulative From/Thru 15:00 23:00 07:00 12/18/16 14:54 - 12/28/16 06:07 Intake Total 1307 ml 1384 ml 81334 ml Output Total 3340 ml 2650 ml 49823 ml Balance -2033 ml -1266 ml 5366 ml Intake Oral 8710 ml IV Total 818 ml 847 ml 16980 ml Tube Feeding 125 ml 124 ml 249 ml TPN/PPN 174 ml 253 ml 2006 ml Packed Cells 300 ml Tube Irrigant 190 ml 160 ml 410 ml Output Urine Total 3250 ml 2350 ml 70296 ml Stool Total 90 ml 300 ml 33729 ml Urine/Stool Mix 700 ml Gastric Drainage Total 275 ml # Voids 1 Exam General: Cachectic woman appears older than stated age, intubated and sedated in the ICU. HEENT: Orogastric & endotracheal tubes inserted through oropharynx, blood around the mouth. Unable to evaluate oropharynx completely but no oral thrush appreciated. Mucous membranes dry. Neck: Central venous catheter right internal jugular. No JVD appreciated. Chest & Lungs: Improved coarse breath sounds today, no wheeze appreciated. Cardiovascular: bradycardic, regular rhythm, no murmurs noted Pulses: Decreased radial pulses bilaterally, dorsalis pedis present and equivalent bilaterally. Abdomen: Non-distended, soft, nontender, ileostomy in place, stoma free of erythema and leakage, scattered abrasions and scarring over her abdomen. Extremities: Cool, moderate bilateral pitting edema from feet up to both knees. Skin: Dry cracking skin diffusely on back and extremities, early pressure ulcer changes on sacrum and iliac. Abrasions to back and legs Taylor catheter in place Neuro: nods head to answer some questions, able to follow few commands. Ventilator settings: FiO2 .35, PEEP 10, Rate 14, TV 350. IVs and Medications Medications Reviewed: Medications were reviewed in detail Lab and Diagnostics Result Diagram: 12/28/16 0440 12/28/16 0440 X-Rays, CTs and MRIs Portable chest x-ray performed 12/27/2016 IMPRESSION: 1. Persistent bilateral airspace consolidation with a perihilar predominance as well as left retrocardiac consolidation. Findings most likely represent pneumonia including from atypical etiologies. 2. Persistent bilateral pleural effusions. Chest CT without contrast performed 12/26/2016 IMPRESSION: 1. Severe bilateral pneumonia. 2. Small bilateral pleural effusions. 3. Opacification of the right lower lobe bronchus, consistent with mucous plugging. 4. Small amount of ascites. 5. Severe abdominal subcutaneous edema. 6. Findings discussed with Dr. Brandt on 12.26.16 at 1439 hrs. Dictated by: Calvin Bonds M.D. on 12/26/2016 at 14:[address] without contrast performed 12/26/2016 IMPRESSION: 1. No acute intracranial abnormality. Dictated by: Chris Heredia M.D. on 12/26/2016 at 8:25 CT ABDOMEN AND PELVIS WITHOUT CONTRAST IMPRESSION: 1. Free air is not identified. 2. Markedly distended colon suggesting distal colonic obstruction. Rectal tube may be of benefit. 3. Question of low-density stones versus particles of air in the gallbladder. Ultrasound is suggested. ADDENDUM: Additional information is that the patient has had a colectomy. The distended loops therefore must be small bowel. In addition there is an ileostomy rather an ileal loop into the right lower quadrant. In the operative from this is reportedly fairly good. This would indicate that C. dilated small bowel loops are related to a chronic low-grade obstruction or a relatively acute high-grade obstruction. No wall thickening or air in the tsai of the dilated loops is seen. Since the patient does not have obstructive symptoms clinically this is likely to be a distended loops from chronic partial low grade obstruction of a small bowel loop. Dictated by: Esteban Cabrera M.D. on 12/18/2016 at 18:44 US ABDOMEN, LIMITED IMPRESSION: Multiple stones in the gallbladder but no free air or changes to indicate acute cholecystitis. Dictated by: Esteban Cabrera M.D. on 12/18/2016 at 19:49 X-RAY ACUTE ABDOMINAL SERIES IMPRESSION: Changes are consistent with partial or early small bowel obstruction. Dictated by: Esteban Cabrera M.D. on 12/18/2016 at 20:37 Cardiac Echo Impressions Complete echocardiogram performed 12/26/2016 Interpretation Summary The left ventricle is normal in size. The ejection fraction is estimated to be 30-35%. Except basal LV segments and apical segments which have preserved or slightly increased contractility, rest all the mid LV segments are severey hypokinetic to akinetic. This pattern favors atypical stress induced cardiomyopathy. The right ventricle is normal size.Right ventricular systolic function is at the lower limits of normal. There is moderate mitral regurgitation. There is mild to moderate tricuspid regurgitation. Right ventricular systolic pressure is estimated to be 25 mmHg plus the clinically estimated CVP which cannot be estimated on this exam. There are small-sized bilateral pleural effusions noted. The patient was in sinus bradycardia with heart rates between 57-58 bpm during the exam. Assessment & Plan Terra Beauchamp is an 31 year old woman that recently moved to the [facility] from the [facility] with a complex history of Crohn's disease s/p total proctocolectomy with end ileostomy performed at [facility] in [place], [place]. She is on chronic glucocorticoids with Humira therapy, multiple prior obstructions/near obstructions near ostomy, recurrent flares, and recent left UE DVT secondary to PICC placement for TPN, who presented to the ED 2016 with acute on chronic diffuse abdominal pain, vomiting, and nausea. on hospital day 7 patient developed acute hypoxic respiratory failure and was transferred to the ICU. Hospital day 11 ICU, day 5 Ventilator day 3 Antibiotics/Antifungal day 3 1. Acute hypoxemic respiratory failure, not present on admission. Stable - Most likely due to fluid overload evidenced on x-ray has diffuse edema however fungal or atypical infection, cardiac etiology, and refeeding syndrome are differentials. - Continuing mechanical ventilation at this time. Fentanyl and propofol for sedation. Plan to minimize these medications as much as possible. - Cardiac etiology :Echocardiogram: Ejection fraction 30-35% - Infectious etiology: Chest CT without contrast demonstrated Severe bilateral pneumonia, small bilateral pleural effusions, opacifications consistent with mucous plugging, Continue Zosyn as well as Bactrim for pneumocystis Bronchoscopy completed, no gross abnormalities. Awaiting bronchial alveolar lavage serology results. Fungal blood cultures 2 Pending Fungal Antibodies = Elevated. May be false positive secondary to Zosyn. Continue Cresemba per ID. Histo urine antigen Pending. - Renal Etiology - Urine protein, - Autoimmune - Panel pending. - Infectious disease, critical care pulmonology, and gastroenterology following in consultation on the case. We appreciate their time, evaluation, and recommendations. - Continue Lasix drip at this time. Will monitor I&O's closely. 2. Acute systolic congestive heart failure, not present on admission, management ongoing. - Echocardiogram showed an ejection fraction of 30-35% with an atypical stress- induced cardiomyopathy. - Dobutamine drip to continue for inotropic support. - Cardiology is consulting, we appreciate their evaluation, and recommendations regarding the case. 3. Acute hypokalemia, not present on admission, treatment ongoing. - Serum potassium consistently low despite parenteral repletion, most likely due to furosemide. - Continue to monitor with BMP and replete as needed. 4. Acute aspiration, not present on admission, treatment initiated - Patient was receiving oral food, she began to cough and it was perceived that she was aspirating. - Infectious disease was notified, patient restarted on Zosyn IV. - Will plan for speech therapy to evaluate the patient post-extubation. 5. Crohn's disease with RLQ high output Ileostomy with severe protein/calorie malnutrition, present on admission - Continue prednisone, hold Humira. - Patient not a PEG tube candidate per GI but surgical services director believe this would be preferable option. - She has previously been noncompliant with Dobhoff due to discomfort and anxiety. OG tube currently in place. - Patient is receiving trickle feeds 10 mL/h via OG tube, along with TPN. Consider advancing tube feed rate today. 6. Thrombocytopenia, acute, not present on admission. Improved. - Concern for HIT. - She continues on a stress dose of hydrocortisone 100 mg every 8 hours. - Heparin Antibodies - Pending - Fondaparinux has been discontinued. She has completed 2 full months of treatment. 7. Acute anemia, not present on admission, Stable - Most likely dilutional due to the numerous liters of fluid she has received - 2 units of packed red blood cells were transfused, this in conjunction with diuresis has brought her hemoglobin to greater than 10. - Continue to monitor CBC. 8. Fever, acute - resolved. - Patient remains on Zosyn (day 3). -Infectious disease continues to consult and we appreciate Dr. Bynum's expertise. 9. Hypovolemic hyponatremia, chronic, present on admission - resolved. - Patient's volume status has been repleted, sodium has returned to normal levels. - Continue to monitor BMP. 10. Abdominal pain in the setting of Crohn's disease s/p total proctocolectomy with RLQ ileostomy, acute, present on admission - Likely due to strictures and obstruction. - More difficult to assess while intubated and sedated. - Continue to monitor. Patient tolerating tube feeding so far. 11. Early or partial small bowel obstruction, acute, present on admission - Most recent abdominal imaging shows evidence of developing small bowel obstruction and other strictures. She is still having high ostomy output, although mostly just liquids. Status post stomal dilation December 24 - GI consulted, will continue to follow, appreciate time and input. - Surgery consulted and following. Appreciate time and input. - Patient receiving tube feeding and tolerating this so far. 12. Hypochromic microcytic anemia, likely iron deficiency, chronic, present on admission - Due to poor oral intake and poor nutritional status - Consider iron supplementation as outpatient - Continue to monitor CBC. 13. Anxiety and Depression, POA - Patient's anxiety and depression are related to significant chronic disease condition, but creating significant morbidity none the less. - Continue lorazepam 0.5 mg IV push PRN. 14. Likely Oral Candidiasis, acute - Secondary to Prednisone usage and - Continue to monitor closely. - Nystatin being given PO BID. - Antiemetic available PRN. Disposition: Anticipate several more days in the CCU due to low blood pressures necessitating pharmacologic IV support. Hospital course difficult to anticipate , may require transfer to tertiary receiving facility. Pain Evaluation: Adequate Pain Control GI Prophylaxis: H2 luis carlos VTE Prophylaxis: SCDs VTE Mechanical Devices: Intermittant Pneumatic CD Resuscitation Status: CPR: Attempt Resuscitation Attending Statement Oral magnesium oxide and spironolactone added to aid in persistent hypokalemia in the setting of aggressive diuresis with intravenous furosemide. The patient was seen and examined together with Dr. Keller on 12/28/2016 and I agree with the history, exam and plan as outlined in the note above. . Anabella Keller DO Dec 28, 2016 08:20 Srinivas Abbott MD Dec 28, 2016 16:13
[2016-12-28] MEDS: Famotidine Inj 20 MG in IV Premix 1 EACH IV SCH ×2 (09:02→21:12)
[2016-12-28] MEDS: Nystatin 100,000 Unit/mL 5 mL Suspension PO SCH ×2 (09:02→21:09)
--- NOTE | 2016-12-28 09:08 | DRSVH ---
PROCEDURE: X-RAY CHEST ONE VIEW, PORTABLE ([id number]) INDICATIONS: Pulmonary edema TECHNIQUE: One view of the chest was acquired. COMPARISON: [facility], CR, XR CHEST 1VW (PORTABLE), 12/27/2016, 4:59. [facility]ital, CT, CT CHEST WO CON, 12/26/2016, 14:02. [facility], CR, XR CHEST 1VW (PORTABLE), , 12:22. FINDINGS: Surgical changes and devices: Right internal jugular vein central venous catheter is present, tip of which is in the mid SVC, as before. NGT is present, new since the prior examination. ETT is in expect ed location. Lungs and pleura: No pleural effusions or pneumothorax. Severe diffuse air space opacity is present, which is decreased compared to 3..17. Mediastinum: Mediastinal contours appear normal. Heart size is normal. Bones and chest wall: No suspicious bony lesions. Overlying soft tissues appear unremarkable. IMPRESSION: Resolving bilateral pulmonary opacities, consistent with the given history of pulmonary e malinda. Dictated by: Calvin Bonds M.D. on 12/28/2016 at 8:59 Approved by: Calvin Bonds M.D. on 12/28/2016 at 9:07
--- NOTE | 2016-12-28 09:08 | ABG ---
DateTimeAnalyzed 09:01:00 -_ pH ____7.553 - 7.350 7.450 pCO2 ___40.5__ -mmHg 35.0 45.0 pO2 ___68.8__ -mmHg 69.0 116 HCO3- ___35.6__ -mmol/L 22.0 26.0 ABE ___12.0__ -mmol/L -2.0 2.0 tHb ____9.6__ -g/dL O2Hb ___91.4__ -% COHb ____0.6__ -% MetHb ____2.3__ -% sO2 ___94.1__ -% FIO2 ___35.0__ -% PEEP ___10.0__ -cmH2O Vt __350.0__ -L Drawn By RC - Date/Time Notified____ 09:08:00 -_ Spontaneous_RR ___14.0__ -b/min Oxygen Device 1 VENTILATOR - Notified By RC - Notified Whom GEE WILKINS RN - B 753 -mmHg tO2 ___12.4__ -Vol% Daryl test _Positive -
[2016-12-28] MEDS: Furosemide 5 mg/Hr Drip IV SCH ×2 (09:36)
--- NOTE | 2016-12-28 10:15 | PCM.PNSURG ---
Subjective Date of Service: Dec 28, 2016 Date of Service: Dec 28, 2016 Visit Information: Subjective: hb 8.9 this am. intubated. Postop General: No Complaints Objective Vital Sign- Last 8 Hours Date Time Temp Pulse Resp B/P Pulse Ox O2 Delivery O2 Flow Rate FiO2 12/28/16 07:21 37.1 77 14 102/78 97 Mechanical Ventilator 35 12/28/16 07:21 Ventilator 12/28/16 07:21 77 12/28/16 05:29 77 12/28/16 04:40 82 116/84 98 35 12/28/16 04:30 36.9 80 17 108/79 99 Mechanical Ventilator 40 12/28/16 04:30 Ventilator Intake and Output- Last 8 Hour 12/28/16 Cumulative From/Thru 07:00 12/18/16 14:54 - 12/28/16 06:07 Intake Total 1384 ml 41556 ml Output Total 2650 ml 36713 ml Balance -1266 ml 5366 ml Intake Oral 8710 ml IV Total 847 ml 13723 ml Tube Feeding 124 ml 249 ml TPN/PPN 253 ml 2006 ml Packed Cells 300 ml Tube Irrigant 160 ml 410 ml Output Urine Total 2350 ml 51183 ml Stool Total 300 ml 75747 ml Urine/Stool Mix 700 ml Gastric Drainage Total 275 ml # Voids 1 General: Alert Neck: Supple Lungs: Rhonchorus Heart: Exam Unremarkable Abdomen: Benign, Non-tender, Non-distended, Normoactive bowel tones Extremities: Distal Pulses Palpable Result Diagram: 12/28/160 12/28/16 0440 Assessment & Plan Impression 31 year old woman that recently moved to the 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 However clinically she is passing gas and passing fecal material, Abdominal pain; chronic. Likely secondary to chronic, low grade stenosis and po attempts for maximal intake to maintain nutrition. She is on chronic glucocorticoids with Humira therapy, multiple prior obstructions/near obstructions near ostomy, recurrent flares, and recent left UE DVT secondary to PICC placement for TPN, who presented to the ED 12/18/2016 with acute on chronic diffuse abdominal pain, vomiting, and nausea. s/p ileostomy with dilation in past at ileostomy stenosis site. CT A/P wo/contrast 12/18: No free air; low density stones vs free air in gallbladder; dilated loops small bowel likely related to chronic low-grade obstruction. LUE doppler 12/23: Pre-Garrett report, not finalized: The basilic vein is not identified otherwise no definite venous thrombosis seen. CT A/P wo contrast 12/24: Suboptimal examination due to lack of oral and intravenous contrast. There is total colectomy and right lower quadrant ileostomy. Mild concentric thickening of a short segment of small bowel loop is noted in the right lower quadrant. There is decreased overall small bowel distention compared to 12/18/2016. A small amount of free peritoneal fluid, which is new.Small bilateral pleural effusions with bibasilar consolidation or atelectasis. Cannot rule out bibasilar pneumonia.Diffuse body wall edema and subcutaneous fluid collection with pockets of subcutaneous gas. Cannot rule out postoperative wound infection.There is mesenteric and retroperitoneal lymphadenopathy, which is nonspecific. CXR 12/24: Report pending; personal read: Bilateral pleural effusions, R > L that extend from bases to mid-castillo; will await final report Stool PCR 12/24: Negative for screened pathogens Brain CT 12/26: Ordered for decreased LOC: No acute intracranial abnormalities Recs: - Recs per Pulmonary team - Continue TPN - diet per Nutrition consultation team. - Next Humira due: 12/26; patient states she will need Rx (previous dose 12/12) - Must be provided by patient/family; not stocked in hospital pharmacy - Has appt with Dr. Dominic Zaidi at on 12/31 Patient has history of noncompliance, and removed Dobhoff the day of previous discharge while she was on her way home. Dobhoff was also removed while she was going home after the admission prior to that. Nutrition is essential for her, as she likely requires a complete revision, but her nutritional status is too poor to promote adequate healing. Previous discussions have included SNF. She is not a PEG candidate, as it would likely be more detrimental than beneficial especially because of the poor nutritional status indicated by low albumin. This is have significant impact on wound healing. Tube feeds were anticipated to last at least three months. Due to the history of noncompliance with Dobhoff and need for surgical intervention, TPN is next best choice. This does not come without risk, as her previous TPN site led to a DVT. She is still receiving anticoagulation at this time. Risks of TPN explained to patient, and because her need for nutrition is becoming increasingly critical, it is pursued at this time. TPN carries significant risk of infection, especially with her history of immunosuppression secondary to terminal superintendent steroids and now Humira use. On 12/24, she was urgently taken to endoscopy for another dilation of stoma, and then transferred to CCU for continued care. She has remained in critical condition with decreased respiratory function. Diuretics and O2 delivery methods ordered. Dr. Valdez returns on Friday 12/29 Problems: VTE Prophylaxis: SCDs Resuscitation Status: CPR: Attempt Resuscitation Juwan Smith MD Dec 28, 2016 10:15
[2016-12-28] MEDS ORDERED: KCl 40 mEq/100 mL IV Premix (K < 3 & Creat <2) IV SCH (10:55)
[2016-12-28] MEDS: DOBUTamine 500 mg/250 D5W 500,000 MCG in IV Premix 1 EACH IV SCH (11:12)
--- NOTE | 2016-12-28 11:31 | PROG NOTE ---
[address] [address] PROGRESS NOTE PATIENT: MAE FELIZ : 1985 MR#: [id number] ADMIT: 12/18/2016 JOB ID: [id number] DATE: 12/27/2016 CHIEF COMPLAINT: Shortness of breath. SUBJECTIVE: This morning, the patient remains intubated and sedated. She is accompanied today by her mother, who is quite concerned, naturally, about her health. She is responding to Lasix drip and has stable O2 requirements of about 55% FiO2. OBJECTIVE: Vital signs: Temperature 37 degrees, pulse 60, respirations 14, blood pressure 91/66, sats 100% on 50% FiO2 on 10 cm of PEEP. General: A thin, cachectic-appearing woman with cushingoid, puffy faces. Intubated and sedated. Unresponsive at this time. Chest: No crackles, but diminished breath sounds bilaterally. Heart: Regular. Normal S1, S2. No murmurs. Abdomen: Soft. Positive bowel sounds. DATA: Labs were reviewed. Platelet count is 33, hematocrit is 31, white blood cell count is 6.7. Unfortunately, platelet count was 247 on admission and has been steadily coming down. Potassium is 2.7, being aggressively supplemented. Calcium is 7.9. Transaminases are normal. Ionized calcium is low at 1.04. CURRENT MEDICATIONS: 1. Famotidine q.p.m. 2. Potassium supplement. 3. Propofol. 4. Stress dose steroids 50 mg IV q.8 hours. 5. Lasix 5 mg/hour. 6. Dobutamine 5 mcg/kg per minute. 7. Sedation medication. 8. Zosyn. 9. Albumin. IMPRESSION AND PLAN: On personal review of the radiograph performed today, December 27, unfortunately I do not see a whole lot of improvement compared to prior study, performed December 26. At least it does not seem that diuresis has harmed her. So, I think it is okay to keep trying to see if it helps with her shortness of breath and hypoxemia. Thank you very much for the opportunity to evaluate her.
[2016-12-28 14:03] LABS: Magnesium 1.5 mg/dL (1.6-2.6)
[2016-12-28] MEDS ORDERED: Potassium Chloride 20 mEq/15 mL 15mL Oral Soln PO ONE ×2 (14:10→18:10)
[2016-12-28] MEDS ORDERED: Magnesium Sulf 4 Gm/100 mL H2O 4 GM in IV Premix 1 EACH IV ONE (14:30)
[2016-12-28] MEDS: fentaNYL 2,500 mCg/250 mL 2,500 MCG in IV Premix 1 EACH IV PRN (14:42)
--- NOTE | 2016-12-28 14:59 | ABG ---
DateTimeAnalyzed 14:54:00 -_ pH ____7.520 - pCO2 ___48.1__ -mmHg pO2 ___33.3__ -mmHg HCO3- ___39.0__ -mmol/L ABE ___14.4__ -mmol/L tHb ____9.0__ -g/dL O2Hb ___64.7__ -% COHb ____0.6__ -% MetHb ____2.0__ -% sO2 ___66.4__ -% FIO2 ___35.0__ -% PEEP ___10.0__ -cmH2O Vt __330.0__ -L Drawn By NSG - Date/Time Notified____ 14:58:00 -_ Spontaneous_RR ___14.0__ -b/min Oxygen Device 1 VENTILATOR - Notified By RC - Notified Whom RAJ,MD - B 751 -mmHg tO2 ____8.2__ -Vol% Daryl test N/A -
[2016-12-28] MEDS: Ondansetron 2 mg/mL 2 mL Inj IVPUSH PRN (15:35)
--- NOTE | 2016-12-28 16:37 | PCM.PHAPRO ---
Progress tpn . PARENTERAL NUTRITION ORDERS 5 27-Dec-16 Standard Hang Time: 2100 Substrates Total kcal: 1018 AMINO ACIDS 65 g DEXTROSE 120 g Total Volume (mL): 1000 LIPIDS 35 g Sterile Water for Injection QS mL To Infuse Over (hrs): 24 Total Volume 1000 mL At at a rate of (mL/hr): 42 Additives Sodium Chloride 20 mEq "typical" daily requirements Sodium Acetate 0 mEq Sodium 50-120mEq Potassium Chloride 60 mEq Potassium 60-120mEq Potassium Phosphate 30 mEq Phosphate 20-40mEq Calcium Gluconate 4.5 mEq Magnesium 8-32mEq Magnesium Sulfate 8 mEq Calcium 9-22mEq Acetate* 80-120mEq Chloride* 80-120mEq Regular Insulin units *Depending on acid-base status Famotidine mg Multivitamins 1 std dose Insulin Regimen Trace Elements 1 std dose none Thiamine mg Regular Low Intensity Subcut Folic Acid mg Regular Medium Intensity Subcut Ascorbic Acid mg Regular High Intensity Subcut Regular Insulin Infusion Other: Special Instructions: To be infused via central line only. For delay or inturruption of TPN contact the pharmacist for alternative replacement solution. Signature Date: MAE FELIZ 0 [facility] Surya Petersen Dec 28, 2016 16:37
[2016-12-28] MEDS: 0.9% Sodium Chloride 1,000 ML IV SCH (17:10)
[2016-12-28] MEDS: Trimethoprim-Sulfa 160 mg-800 mg Tablet PO SCH (21:09)
[2016-12-28] MEDS: Total Parenteral Nutrition 1 BAG IV SCH (21:12)
[2016-12-28 23:37] LABS: Magnesium 2.8 mg/dL (1.6-2.6)
[2016-12-29] VITALS (16 sets, daily range): BP systolic 79–114; BP diastolic 44–74; PULSE 63–108; RESP 14–35; O2SAT 90–100
[2016-12-29] MEDS: Albumin 25% 25 GM in IV Premix 1 EACH IV SCH ×3 (00:28→15:59)
[2016-12-29] MEDS: Chlorhexidine 0.12% 15 mL Oral Solution MT SCH ×6 (00:29→20:47)
[2016-12-29] MEDS: Piperacillin-Tazo 3.375 Gm Inj 3.375 GM in Dextrose 5% Minibag Plus 50 ML IV SCH ×3 (00:29→15:57)
[2016-12-29] MEDS: Hydrocortisone 50 mg/mL 2 mL Inj IVPUSH SCH ×3 (00:29→15:57)
--- NOTE | 2016-12-29 01:36 | PROG NOTE ---
[address] [address] PROGRESS NOTE PATIENT: MAE FELIZ : 1985 MR#: [id number] ADMIT: 12/18/2016 JOB ID: [id number] DATE: 12/28/2016 CHIEF COMPLAINT: Shortness of breath. SUBJECTIVE: Overnight, patient's respiratory status does not appear to have improved. She continues to have significant metabolic contraction alkalosis. She also appears to have uncorrectable hypokalemia and hypomagnesemia despite aggressive supplementation. OBJECTIVE: Vital signs: Temperature 37.2, up to 36.9. Blood pressure 80/59, up to 116/87. Pulse 65, up to 95 beats per minute. She is satting 95% to 100% on 35% FiO2. CURRENT MEDICATIONS: 1. Hydrocortisone 50 mg IV every 8 hours. 2. Zosyn. 3. Albumen. 4. Propofol drip. 5. Famotidine IV. 6. TPN. 7. Bactrim 2 tablets twice a day. 8. Prozac. 9. Magnesium oxide 400 mg twice a day. 10. Fentanyl IV. 11. Lasix 5 mg/hour. 12. Dobutamine 2 mcg/kg per minute. PHYSICAL EXAMINATION: Cachectic woman, lying in bed, intubated and sedated. Eyes: No scleral icterus. Neck is supple. No carotid bruits. Heart normal S1, S2. No murmurs. Lungs: Clear to auscultation anteriorly. Abdomen: Soft with diminished bowel sounds. Extremities have mild edema in her feet, but not in her ankles. Serial compression devices are on. LABORATORIES: Reviewed. She is anemic. Hematocrit is 28%. She has thrombocytopenia. Platelet count is 40. Her platelet count has declined precipitously, went from 92 on December 23 to 56 on December 24. I do not see that fibrinogen level was checked to screen for DIC. Potassium was 2.5 as of December 28 at noon. Magnesium was 1.5. Cryptococcus antigen is negative. Fungal antibodies are elevated consistent with ongoing fungal infection. Telemetry showed no evidence of AFib just a normal sinus rhythm. ASSESSMENT AND PLAN: This is an unfortunate malnourished woman with immunosuppression due to a combination of corticosteroid, Humira and severe protein calorie malnutrition. She has bilateral severe parenchymal opacities and pleural effusions that have progressed since December 24. She has concurrent presumably stress cardiomyopathy. We have aggressively attempted to diurese her with Lasix drip and dobutamine for the past 48 hours. I have reviewed her radiographs from today, yesterday and the day before yesterday. I do not see significant improvement on personal review. I do see that she has developed contraction alkalosis. Her ABG from December 28, 2014, shows pH 7.553, pCO2 40.5, pO2 69 and bicarb of 36. This may suggest that the aggressive diuresis has led to contraction alkalosis and electrolyte disarray without appreciably improving her bilateral lung white-out. It is possible that her lung white-out is not in fact due to pulmonary edema, but rather due to acute respiratory distress syndrome and infection. I think the risk of ongoing aggressive diuresis is greater than the benefit, and I recommend stopping dobutamine, stopping Lasix, and just see how she does. We can always give her Lasix IV as needed if her O2 requirement rises. Thank you very much for the opportunity to see this patient. AYANA
--- NOTE | 2016-12-29 05:01 | ABG ---
DateTimeAnalyzed 04:57:00 -_ pH ____7.467 - pCO2 ___52.2__ -mmHg pO2 ___34.9__ -mmHg HCO3- ___37.3__ -mmol/L ABE ___12.3__ -mmol/L tHb ____8.2__ -g/dL O2Hb ___64.4__ -% COHb ____0.6__ -% MetHb ____1.6__ -% sO2 ___65.8__ -% FIO2 ___35.0__ -% PRVC 14 - PEEP ___10.0__ -cmH2O Set_RR ___14.0__ -b/min Vt __330.0__ -L Drawn By MM - Date/Time Notified____ 05:01:00 -_ Spontaneous_RR ___14.0__ -b/min Oxygen Device 1 VENTILATOR - Notified Whom BENJAMIN,RN - B 754 -mmHg tO2 ____7.5__ -Vol% Daryl test N/A -
[2016-12-29 05:15] LABS: BASOPHILS % (AUTO) 0.1 % (0-3); EOSINOPHILS % (AUTO) 0 % (0-5); MONOCYTES % (AUTO) 2.2 % (4-12); Mean Corpuscular Volume 83.5 fL (81-100); NEUTROPHILS % (AUTO) 92.8 % (40-74); Platelet Count 64 bil/L (150-400)
[2016-12-29 05:39] LABS: Magnesium 2.7 mg/dL (1.6-2.6); Phosphorus 1.8 mg/dL (2.5-4.9)
[2016-12-29] MEDS: Trimethoprim-Sulfa 160 mg-800 mg Tablet PO SCH (08:00)
[2016-12-29] MEDS: Nystatin 100,000 Unit/mL 5 mL Suspension PO SCH ×2 (08:01→20:47)
[2016-12-29] MEDS ORDERED: SODIUM CHLORIDE 0.9% IV ONE (08:10)
[2016-12-29] MEDS ORDERED: POTASSIUM PHOS IV ONE (08:10)
[2016-12-29] MEDS: Famotidine Inj 20 MG in IV Premix 1 EACH IV SCH ×2 (08:35→21:27)
[2016-12-29] MEDS ORDERED: Polyethylene Glycol (PEG) 17 Gm Powder PO PRN (08:50)
[2016-12-29] MEDS ORDERED: Sodium Chloride LOK Flush 10 mL Syringe IVFLUSH PRN ×2 (08:55)
--- NOTE | 2016-12-29 08:58 | DRSVH ---
PROCEDURE: X-RAY CHEST ONE VIEW, PORTABLE ([id number]) INDICATIONS: intubated pt; monitor tubes and lines TECHNIQUE: One view of the chest was acquired. COMPARISON: [facility], CR, XR CHEST 1VW (PORTABLE), 12/28/2016, 8:05. FINDINGS: Surgical changes and devices: Stable position of ETT and nasogastric tube and right IJ CVL. Lungs and pleura: Diffuse, widespread bilateral pulmonary interstitial and air space opacities are p resent not significantly changed from prior examination with relative sparing of the apices. Mediastinum: Mediastinal contours appear normal. Heart size is normal. Bones and chest wall: No suspicious bony lesions. Overlying soft tissues appear unremarkable. IMPRESSION: Pulmonary edema and/or diffuse bilateral pneumonia not significant changed. ARDS cannot be excluded. Dictated by: Jimmy Eubanks A Interpreted: Keeley Bethea MD on 12/29/2016 at 8:58 Transcribed by: LAUREN on 12/29/2016 at 8:58 Approved by: Keeley Bethea MD, PhD on 12/29/2016 at 18:05
--- NOTE | 2016-12-29 10:30 | PCM.PNMED ---
Subjective Date of Service Dec 29, 2016 Subjective GASTROENTEROLOGY PROGRESS NOTE Today, Ms. Beauchamp remains intubated with light sedation. She was awake enough to follow basic commands. No acute distress noted. IV therapy team was also at bedside, and was unable to find suitable site for right PICC placement. Ms. Beauchamp continues to endorse some abdominal pain, and responds appropriately to yes/no questioning. No family present at bedside at time of evaluation. Tube feeds have been tolerated well at [facility], but will be temporarily stopped secondary to pain and increased distention; majority of calories are stated to be derived from TPN at this time. Exam Vital Signs Vital Sign - Last Date Time Temp Pulse Resp B/P Pulse Ox O2 Delivery O2 Flow Rate FiO2 12/29/16 07:52 89 92/68 99 35 12/29/16 04:30 Ventilator 12/29/16 04:30 37.0 18 12/26/16 11:02 40 Intake and Output 12/28/16 12/28/16 12/29/16 Cumulative From/Thru 15:00 23:00 07:00 12/18/16 14:54 - 12/29/16 06:06 Intake Total 1807 ml 1390 ml 51028 ml Output Total 2100 ml 850 ml 55908 ml Balance -293 ml 540 ml 5613 ml Intake Oral 8710 ml IV Total 986 ml 658 ml 58804 ml Tube Feeding 115 ml 118 ml 482 ml TPN/PPN 466 ml 494 ml 2966 ml Packed Cells 300 ml Tube Irrigant 240 ml 120 ml 770 ml Output Urine Total 1900 ml 450 ml 33001 ml Stool Total 200 ml 400 ml 77552 ml Urine/Stool Mix 700 ml Gastric Drainage Total 275 ml # Voids 1 Exam General: Frail, cachetic; intubated and sedated in CCU; no acute distress Head: Atraumatic; cushinoid-facies; sclera anicteric Neck: Right IJ in place with bandages clean/dry and intact Nose: Mucous Membr Moist/[place] Mouth: Mucous Membr dry; ETT/OGT in place and secured Chest & Lungs: Bilateral crackles at bases; poor inspiratory effort; no use accessory muscles Cardiovascular: Regular rate at approx 74 at time of evaluation Pulses: Radial (equal and bilateral); dorsalis pedis equal and bilateral Abdomen: Mildly tender; ostomy site free of erythema; output liquid green- brown dark stool, no evidence edy blood : Taylor present and secured Extremities: Warm; no edema noted BLLE, compression socks and SCDs in place, without noted edema proximal to SCD; mild BLUE dependent edema with R > L likely secondary to infiltrated IV site or phleb site Skin: Warm and dry Neurological: Difficult to assess secondary to sedation, but does awaken and does appropriately respond to commands and questioning Psych: Difficult to assess secondary to somnolence; limited insight and judgment based on history of noncompliance Lab and Diagnostics Result Diagram: 12/29/16 0500 12/29/16 0500 X-Rays, CTs and MRIs Portable chest x-ray performed 12/27/2016 IMPRESSION: 1. Persistent bilateral airspace consolidation with a perihilar predominance as well as left retrocardiac consolidation. Findings most likely represent pneumonia including from atypical etiologies. 2. Persistent bilateral pleural effusions. Chest CT without contrast performed 12/26/2016 IMPRESSION: 1. Severe bilateral pneumonia. 2. Small bilateral pleural effusions. 3. Opacification of the right lower lobe bronchus, consistent with mucous plugging. 4. Small amount of ascites. 5. Severe abdominal subcutaneous edema. 6. Findings discussed with Dr. Brandt on 12.26.16 at 1439 hrs. Dictated by: Calvin Bonds M.D. on 12/26/2016 at 14:[address] without contrast performed 12/26/2016 IMPRESSION: 1. No acute intracranial abnormality. Dictated by: Chris Heredia M.D. on 12/26/2016 at 8:25 CT ABDOMEN AND PELVIS WITHOUT CONTRAST IMPRESSION: 1. Free air is not identified. 2. Markedly distended colon suggesting distal colonic obstruction. Rectal tube may be of benefit. 3. Question of low-density stones versus particles of air in the gallbladder. Ultrasound is suggested. ADDENDUM: Additional information is that the patient has had a colectomy. The distended loops therefore must be small bowel. In addition there is an ileostomy rather an ileal loop into the right lower quadrant. In the operative from this is reportedly fairly good. This would indicate that C. dilated small bowel loops are related to a chronic low-grade obstruction or a relatively acute high-grade obstruction. No wall thickening or air in the tsai of the dilated loops is seen. Since the patient does not have obstructive symptoms clinically this is likely to be a distended loops from chronic partial low grade obstruction of a small bowel loop. Dictated by: Esteban Cabrera M.D. on 12/18/2016 at 18:44 US ABDOMEN, LIMITED IMPRESSION: Multiple stones in the gallbladder but no free air or changes to indicate acute cholecystitis. Dictated by: Esteban Caberra M.D. on 12/18/2016 at 19:49 X-RAY ACUTE ABDOMINAL SERIES IMPRESSION: Changes are consistent with partial or early small bowel obstruction. Dictated by: Esteban Cabrera M.D. on 12/18/2016 at 20:37 Cardiac Echo Impressions Complete echocardiogram performed 12/26/2016 Interpretation Summary The left ventricle is normal in size. The ejection fraction is estimated to be 30-35%. Except basal LV segments and apical segments which have preserved or slightly increased contractility, rest all the mid LV segments are severey hypokinetic to akinetic. This pattern favors atypical stress induced cardiomyopathy. The right ventricle is normal size.Right ventricular systolic function is at the lower limits of normal. There is moderate mitral regurgitation. There is mild to moderate tricuspid regurgitation. Right ventricular systolic pressure is estimated to be 25 mmHg plus the clinically estimated CVP which cannot be estimated on this exam. There are small-sized bilateral pleural effusions noted. The patient was in sinus bradycardia with heart rates between 57-58 bpm during the exam. Assessment & Plan GASTROENTEROLOGY PROGRESS NOTE Ms. Terra Beauchamp is an extremely pleasant 31 year old woman that recently moved to the [facility] from the [facility] with a complex history of Crohn 's disease s/p total proctocolectomy with end ileostomy performed at [facility] in [place], [place]. She is on chronic glucocorticoids with Humira therapy, multiple prior obstructions/near obstructions near ostomy, recurrent flares, and recent left UE DVT secondary to PICC placement for TPN, who presented to the ED 12/18/2016 with acute on chronic diffuse abdominal pain, vomiting, and nausea. 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 - Adrenal insufficiency secondary to chronic steroid use - LUE DVT secondary to PICC placement, on fondaparinux - Severe protein/calorie malnutrition, BMI 15 on admission, s/p RIJ placement for TPN - CT showing chronic low-grade obstruction. However clinically she is passing gas and passing fecal material. - Abdominal pain; chronic. Likely secondary to chronic, low grade stenosis and po attempts for maximal intake to maintain nutrition Plan/Recommendations for 12/29/2016: - Diuresis per primary team to minimize fluid retention - Continue stress dose steroids as appropriate per primary team - Monitor HH and stool output - OK to hold Humira for this due dose - HOLD tube feeds at this time- will re-assess daily - Holding secondary to increased distention and response to pain - No need to schedule bowel regimen/Miralax - Continue TPN Additional recs/info: - Remind patient and mother to provide [facility] records to [facility]/GI - Recommend continued PT evaluation - Has appt with Dr. Dominic Zaidi at on 12/31 Additional summary: Patient has history of noncompliance, and removed Dobhoff the day of previous discharge while she was on her way home. Dobhoff was also removed while she was going home after the admission prior to that. Nutrition is essential for her, as she likely requires a complete revision, but her nutritional status is too poor to promote adequate healing. Previous discussions have included SNF. She is not a PEG candidate, as it would likely be more detrimental than beneficial especially because of the poor nutritional status indicated by low albumin. This is have significant impact on wound healing. Tube feeds were anticipated to last at least three months. Due to the history of noncompliance with Dobhoff and need for surgical intervention, TPN is next best choice. This does not come without risk, as her previous TPN site led to a DVT. She is still receiving anticoagulation at this time. Risks of TPN explained to patient, and because her need for nutrition is becoming increasingly critical, it is pursued at this time. TPN carries significant risk of infection, especially with her history of immunosuppression secondary to chcf steroids and now Humira use. On 12/24, she was urgently taken to endoscopy for another dilation of stoma, and then transferred to CCU for continued care. She has remained in critical condition with decreased respiratory function requiring mechanical ventilatory support. Diuretics and O2 delivery methods ordered. Cardiology consulted as well, to evaluate EF 30-35. Patient was briefly on dobutamine infusion, now discontinued. Suspected pathophysiology secondary to oncotic shifts that resulted in pulmonary flash edema after TPN infusion initiated. Again, at this time, deferring respiratory care and diuresis to primary team. Holding tube feeds secondary to increased distention and pain, err on caution to avoid worsening any suspected obstruction. Will let bowels rest at this time , and re-assess daily. No need for scheduled bowel regimen. Monitor output daily. We will re-assess daily and monitor for any need of re-dilatation of stoma. Total time: 40 minutes GI Prophylaxis: H2 luis carlos VTE Prophylaxis: SCDs VTE Mechanical Devices: Intermittant Pneumatic CD Resuscitation Status: CPR: Attempt Resuscitation Attending Statement Patient seen and examined. Agree with assessment and plan as described by Dr Arteaga. Patient has made improvements on the ventilator, but still too weak to be considered for extubation. Diuresis changed to intervally dosed lasix so that hypokalemia not as problematic. Back on the dobutamine today. This morning, ab felt slightly distended and was uncomfortable for Terra during exam. Dark brown liquid in stoma back. Exam is subjectively improved this afternoon, since stoppage of TF's this morning, but bowel sounds hypoactive. Agree with continued hold on TF's. Concerned about the development of ileus. Would recommend low threshold to repeat ab imaging with plain films to gauge distension If increasing distension, can again be considered for stoma dilatation. Continue TPN. Adjust formula to be as potentially least hepatotoxic as possible. Continue fondaparinux. Continue to hold Humira at present. Steroid stress dosing and antimicrobial coverage per primary team Will continue to follow. Elissa Arteaga DO Dec 29, 2016 09:03 Kirby Valdez MD Dec 29, 2016 17:26
[2016-12-29] MEDS: Propofol Inj 1,000,000 MCG in IV Premix 1 EACH IV PRN ×2 (10:49→20:18)
--- NOTE | 2016-12-29 11:50 | PCM.PHAPRO ---
Progress tpn . TPN #7 Problems include: Hypoxic respiratory failure, ARDS Cardiomyopathy, ejection fraction 30% to 35%, unclear etiology Thrombocytopenia, unclear etiology Crohn's disease, on immunosuppressants with TNF inhibitor and steroids. Severe protein calorie malnutrition. Severe hypoalbuminemia. Upper extremity peripherally inserted central catheter-associated deep venous thrombosis, October 2016, treated with fondaparinux for two months ( stopped over the weekend) I. Fluid status/HD Fluid positive ~ 8 liters (I/O in general agreement with daily weights), particularly important considering her dry weight of 40kg ARDS p/ Restrict sodium/fluids II. Chemistry Low phos today, and high magnesium, both inconsistent with general trajectory of her electrolytes. a/ Mag likely artifact of equilibration after repletion, low phos may suggest ongoing refeeding, which I doubt III. Glycemic control Consider adding small amount of regular tomorrow if BS>180 IV. Substrate Increased to goal today PARENTERAL NUTRITION ORDERS 7 29-Dec-16 Standard Hang Time: 2100 Substrates Total kcal: 1340 AMINO ACIDS 65 g DEXTROSE 200 g Total Volume (mL): 1000 LIPIDS 40 g Sterile Water for Injection QS mL To Infuse Over (hrs): 24 Total Volume 1000 mL At at a rate of (mL/hr): 42 Additives Sodium Chloride 40 mEq "typical" daily requirements Sodium Acetate 0 mEq Sodium 50-120mEq Potassium Chloride 60 mEq Potassium 60-120mEq Potassium Phosphate 35 mEq Phosphate 20-40mEq Calcium Gluconate 4.5 mEq Magnesium 8-32mEq Magnesium Sulfate 8 mEq Calcium 9-22mEq Acetate* 80-120mEq Chloride* 80-120mEq Regular Insulin units *Depending on acid-base status Famotidine mg Multivitamins 1 std dose Insulin Regimen Trace Elements 1 std dose none Thiamine mg Regular Low Intensity Subcut Folic Acid mg Regular Medium Intensity Subcut Ascorbic Acid mg Regular High Intensity Subcut Regular Insulin Infusion Other: Lam Salmeron Pharm D Dec 29, 2016 11:50
--- NOTE | 2016-12-29 11:51 | PROG NOTE ---
[address] [address] PROGRESS NOTE PATIENT: MAE FELIZ : 1985 MR#: [id number] ADMIT: 12/18/2016 JOB ID: [id number] DATE: 12/29/2016 REASON FOR FOLLOWUP: Pulmonary infiltrates of unknown etiology in a profoundly malnourished patient. INTERVAL HISTORY: When we last saw this patient on December 26, our impression was that she did not have an ongoing infection, and no antibiotics were on board. Subsequently, later that day the patient had increasing respiratory difficulty and required intubation and bronchoscopy. Infiltrates at that time continued to suggest pulmonary edema and/or pneumonia. The BAL did not show any evidence of alveolar hemorrhage or abnormal secretions. She had an echo also done on Thursday which showed evidence of cardiomyopathy. Over the weekend, the patient has remained afebrile, but additional antibiotics have been added, including Zosyn that was added because of the possibility of aspiration of some food on Thursday morning and Bactrim which was added over the weekend, apparently out of concern for Pneumocystis. This morning we see the patient. She is awake on the ventilator. She complains of minimal chest pain which sounds to be diffuse, as well as complaining of abdominal pain which is a constant complaint of hers. She denies fevers, chills, or sweats or other pain. No additional history can be obtained, though she is still intubated and somewhat sedated. PHYSICAL EXAMINATION: Reveals a very wasted, chronically ill-appearing woman who has been afebrile now for five days. Her current temperature is 37 degrees, her pulse 89. Respiratory rate is ventilator dependent. Blood pressure 92/68. She is on no vasopressor agents. She is saturating well on 35% and 10 of PEEP. She looks very frail in wasted. Eyes without conjunctival or scleral abnormalities. Oral endotracheal tube, oral gastric tube present in the usual position. Neck without notable abnormalities. Lungs with diffuse crackles bilaterally. Cardiac tones regular rate and rhythm without notable murmur, though difficult to hear, as she is on the ventilator. Abdomen has the ileostomy which appears to be functioning. There are no focal masses, but her abdomen seems diffusely tender with very hypoactive bowel tones. She has a Taylor catheter. Her extremities are wasted with anasarca overlying. LABORATORIES: Labs include white count 8500. Note that her white count has been consistently normal really since admission. Her hematocrit is 26, platelet count bouncing around, but currently 64,000. Creatinine 0.37. LFTs normal except for alk phos 169, very slightly elevated. Of particular interest, her Fungitell was 103. Note that this was drawn 24 hours into her initial Zosyn course and is, therefore, unreliable. Cryptococcal antigen is negative. ANCA is pending. The bronch wash had a total of 85 white cells, remarkably low, and a urinalysis done a few days ago had no significant pyuria. Many cultures have been obtained since admission, including stool cultures, MRSA, screen, bronch wash, PCR for viruses, AFB stains, and all of these are negative to date. Pneumocystis smear on the bronch is pending. Blood cultures are negative, and fungal blood cultures so far are negative. IMAGING: Imaging from yesterday includes resolving bilateral pulmonary infiltrates consistent with her probable pulmonary edema. IMPRESSION: As before, I continue to be unimpressive regarding the possibility of infection in this patient. We have little to suggest an ongoing bacterial infection despite now 12 days of various cultures and evaluations. The patient is consistently afebrile with normal white count and negative procalcitonin levels. We have no positive cultures, and the bronchoscopy done on Thursday did not look purulent. Her chest x-ray infiltrates are rapidly clearing which would be inconsistent with infection. Her Fungitell and LDH seem to low for Pneumocystis, though that could be a possibility. RECOMMENDATIONS: 1. I would strongly consider stopping all antibiotics at this point, including both the Zosyn and Bactrim. 2. Will be discussing this in detail with the ICU team on rounds this morning. 3. One could consider Bactrim, one double strength tablet once a day as pneumocystis prophylaxis if we intend to continue with high-dose prednisone and/or TNF inhibitors.
--- NOTE | 2016-12-29 12:06 | PCM.PNMED ---
Subjective Date of Service Dec 29, 2016 Subjective Over night nurse reported pt expressed increased pain, discomfort, and anxiety. Propofol and fentanyl were titrated to comfort. ROS otherwise unable to be obtained due to sedation and endotracheal tube. Exam Vital Signs Vital Sign - Last Date Time Temp Pulse Resp B/P Pulse Ox O2 Delivery O2 Flow Rate FiO2 12/29/16 11:12 74 98/65 97 12/29/16 11:12 35 35 12/29/16 08:30 36.5 Mechanical Ventilator 12/26/16 11:02 40 Intake and Output 12/28/16 12/28/16 12/29/16 Cumulative From/Thru 14:59 22:59 06:59 12/18/16 14:54 - 12/29/16 06:06 Intake Total 1807 ml 1390 ml 98281 ml Output Total 2100 ml 850 ml 91321 ml Balance -293 ml 540 ml 5613 ml Intake Oral 8710 ml IV Total 986 ml 658 ml 91504 ml Tube Feeding 115 ml 118 ml 482 ml TPN/PPN 466 ml 494 ml 2966 ml Packed Cells 300 ml Tube Irrigant 240 ml 120 ml 770 ml Output Urine Total 1900 ml 450 ml 31020 ml Stool Total 200 ml 400 ml 57823 ml Urine/Stool Mix 700 ml Gastric Drainage Total 275 ml # Voids 1 Exam General: Cachectic woman appears older than stated age, intubated with mild sedation in the ICU. HEENT: Orogastric & endotracheal tubes inserted through oropharynx, blood around the mouth. Unable to evaluate oropharynx completely but no oral thrush appreciated. Mucous membranes dry. Neck: Central venous catheter right internal jugular. No JVD appreciated. Chest & Lungs: Improved coarse breath sounds today, no wheeze appreciated. Cardiovascular: RRR, no murmurs noted Pulses: Decreased radial pulses bilaterally, dorsalis pedis present and equivalent bilaterally. Abdomen: Non-distended but feels more 'full' than previous days, soft, nontender, ileostomy in place, stoma free of erythema and leakage, scattered echymosis and scarring over her abdomen. Extremities: Cool. trace edema to BL LE. Compression stockings in place. Skin: Dry cracking skin diffusely on back and extremities, early pressure ulcer changes on sacrum and iliac. Abrasions to back and legs Taylor catheter in place Neuro: nods head to answer some questions, able to follow few commands. Lab and Diagnostics Result Diagram: 12/29/16 0500 12/29/16 0500 X-Rays, CTs and MRIs Chest X-ray performed 12/29/16 IMPRESSION: Pulmonary edema and/or diffuse bilateral pneumonia not significant changed. ARDS cannot be excluded. Dictated by: Jimmy Eubanks [facility] Interpreted: Keeley Bethea MD on 12/29/2016 at 8:58 Portable chest x-ray performed 12/27/2016 IMPRESSION: 1. Persistent bilateral airspace consolidation with a perihilar predominance as well as left retrocardiac consolidation. Findings most likely represent pneumonia including from atypical etiologies. 2. Persistent bilateral pleural effusions. Chest CT without contrast performed 12/26/2016 IMPRESSION: 1. Severe bilateral pneumonia. 2. Small bilateral pleural effusions. 3. Opacification of the right lower lobe bronchus, consistent with mucous plugging. 4. Small amount of ascites. 5. Severe abdominal subcutaneous edema. 6. Findings discussed with Dr. Brandt on 12.26.16 at 1439 hrs. Dictated by: Calvin Bonds M.D. on 12/26/2016 at 14:[address] without contrast performed 12/26/2016 IMPRESSION: 1. No acute intracranial abnormality. Dictated by: Chris Heredia M.D. on 12/26/2016 at 8:25 CT ABDOMEN AND PELVIS WITHOUT CONTRAST IMPRESSION: 1. Free air is not identified. 2. Markedly distended colon suggesting distal colonic obstruction. Rectal tube may be of benefit. 3. Question of low-density stones versus particles of air in the gallbladder. Ultrasound is suggested. ADDENDUM: Additional information is that the patient has had a colectomy. The distended loops therefore must be small bowel. In addition there is an ileostomy rather an ileal loop into the right lower quadrant. In the operative from this is reportedly fairly good. This would indicate that C. dilated small bowel loops are related to a chronic low-grade obstruction or a relatively acute high-grade obstruction. No wall thickening or air in the tsai of the dilated loops is seen. Since the patient does not have obstructive symptoms clinically this is likely to be a distended loops from chronic partial low grade obstruction of a small bowel loop. Dictated by: Esteban Cabrera M.D. on 12/18/2016 at 18:44 US ABDOMEN, LIMITED IMPRESSION: Multiple stones in the gallbladder but no free air or changes to indicate acute cholecystitis. Dictated by: Esteban Cabrera M.D. on 12/18/2016 at 19:49 X-RAY ACUTE ABDOMINAL SERIES IMPRESSION: Changes are consistent with partial or early small bowel obstruction. Dictated by: Esteban Cabrera M.D. on 12/18/2016 at 20:37 Cardiac Echo Impressions Complete echocardiogram performed 12/26/2016 Interpretation Summary The left ventricle is normal in size. The ejection fraction is estimated to be 30-35%. Except basal LV segments and apical segments which have preserved or slightly increased contractility, rest all the mid LV segments are severey hypokinetic to akinetic. This pattern favors atypical stress induced cardiomyopathy. The right ventricle is normal size.Right ventricular systolic function is at the lower limits of normal. There is moderate mitral regurgitation. There is mild to moderate tricuspid regurgitation. Right ventricular systolic pressure is estimated to be 25 mmHg plus the clinically estimated CVP which cannot be estimated on this exam. There are small-sized bilateral pleural effusions noted. The patient was in sinus bradycardia with heart rates between 57-58 bpm during the exam. Assessment & Plan Terra Beauchamp is an 31 year old woman that recently moved to the [facility] from the [facility] with a complex history of Crohn's disease s/p total proctocolectomy with end ileostomy performed at [facility] in [place], [place]. She is on chronic glucocorticoids with Humira therapy, multiple prior obstructions/near obstructions near ostomy, recurrent flares, and recent left UE DVT secondary to PICC placement for TPN, who presented to the ED 2016 with acute on chronic diffuse abdominal pain, vomiting, and nausea. on hospital day 7 patient developed acute hypoxic respiratory failure and was transferred to the ICU. Hospital day 12 ICU, day 6 Ventilator day 4 Antibiotics/Antifungal day 4 1. Acute hypoxemic respiratory failure, not present on admission. Stable - Most likely due to fluid overload evidenced on x-ray has diffuse edema however fungal or atypical infection, cardiac etiology, and refeeding syndrome are differentials. - Continuing mechanical ventilation at this time. Fentanyl and propofol for sedation. Plan to minimize these medications as much as possible. - Cardiac etiology :Echocardiogram: Ejection fraction 30-35% - Infectious etiology: Chest CT without contrast demonstrated Severe bilateral pneumonia, small bilateral pleural effusions, opacifications consistent with mucous plugging, STOP Zosyn and Bactrim while holding Humira per Infectious Disease Bronchoscopy completed, no gross abnormalities. Serologies remain negative. Awaiting cytology results. Fungal blood cultures 2 Pending Fungal Antibodies = Elevated. May be false positive secondary to Zosyn. Continue Cresemba per ID. Histo urine antigen Pending. HIV screen = Pending. - Renal Etiology - Urine protein, - Autoimmune - HALIE negative. Additional labs pending. - Infectious disease, critical care pulmonology, and gastroenterology following in consultation on the case. We appreciate their time, evaluation, and recommendations. - Continue Lasix drip at this time. Will monitor I&O's closely. 2. Acute systolic congestive heart failure, not present on admission, management ongoing. - Echocardiogram showed an ejection fraction of 30-35% with an atypical stress- induced cardiomyopathy. - Dobutamine was held when Furosemide drip stopped. Blood pressures are decreasing today, cardiology stated they were re-starting Dobutamine Drip. - Cardiology is consulting, we appreciate their evaluation, and recommendations regarding the case. 3. Acute hypokalemia, not present on admission, Improved. - Has returned to normal levels with the discontinuation of furosemide. - Continue to monitor with BMP and replete as needed. 4. Acute aspiration, not present on admission, treatment initiated - Patient was receiving oral food, she began to cough and it was perceived that she was aspirating. - Infectious disease was notified, patient restarted on Zosyn IV, she has completed 3 days. STOPPED Zosyn today. - Will plan for speech therapy to evaluate the patient post-extubation. 5. Crohn's disease with RLQ high output Ileostomy with severe protein/calorie malnutrition, present on admission - Continue prednisone, hold Humira. 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 - Patient not a PEG tube candidate per GI but surgical instruments inspector believe this would be preferable option. - She has previously been noncompliant with Dobhoff due to discomfort and anxiety. OG tube currently in place. - Tube feeds discontinued per gastroenterology recs. TPN only. 6. Thrombocytopenia, acute, not present on admission. Improved. - Concern for HIT. - She continues on a stress dose of hydrocortisone 100 mg every 8 hours. - Heparin Antibodies - Pending - Fondaparinux has been discontinued. She has completed 2 full months of treatment. 7. Acute anemia, not present on admission, Stable - Most likely dilutional due to the numerous liters of fluid she has received - 2 units of packed red blood cells were transfused, this in conjunction with diuresis has brought her hemoglobin to greater than 10. - Continue to monitor CBC. 8. Fever, acute - resolved. - Patient remains on Zosyn (day 3). -Infectious disease continues to consult and we appreciate Dr. Bynum's expertise. 9. Hypovolemic hyponatremia, chronic, present on admission - resolved. - Patient's volume status has been repleted, sodium has returned to normal levels. - Continue to monitor BMP. 10. Abdominal pain in the setting of Crohn's disease s/p total proctocolectomy with RLQ ileostomy, acute, present on admission - Likely due to strictures and obstruction. - More difficult to assess while intubated and sedated. - Continue to monitor. Patient tolerating tube feeding so far. 11. Early or partial small bowel obstruction, acute, present on admission - Most recent abdominal imaging shows evidence of developing small bowel obstruction and other strictures. She is still having high ostomy output, although mostly just liquids. Status post stomal dilation December 24 - GI consulted, will continue to follow, appreciate time and input. - Surgery consulted and following. Appreciate time and input. - Patient receiving tube feeding and tolerating this so far. 12. Hypochromic microcytic anemia, likely iron deficiency, chronic, present on admission - Due to poor oral intake and poor nutritional status - Consider iron supplementation as outpatient - Continue to monitor CBC. 13. Anxiety and Depression, POA - Patient's anxiety and depression are related to significant chronic disease condition, but creating significant morbidity none the less. - Continue lorazepam 0.5 mg IV push PRN. 14. Likely Oral Candidiasis, acute - Secondary to Prednisone usage and - Continue to monitor closely. - Nystatin being given PO BID. - Antiemetic available PRN. Disposition: Anticipate several more days in the CCU due to low blood pressures necessitating pharmacologic IV support. Hospital course difficult to anticipate , may require transfer to tertiary receiving facility. Pain Evaluation: Adequate Pain Control GI Prophylaxis: H2 luis carlos VTE Prophylaxis: SCDs VTE Mechanical Devices: Intermittant Pneumatic CD Resuscitation Status: CPR: Attempt Resuscitation Attending Statement The patient was seen and examined together with Dr. Couch on 12/29/2016 and I agree with the history, exam and plan as outlined in the note above. . Humberto Couch DO Dec 29, 2016 12:06 Srinivas Abbott MD Jan 02, 2017 08:49
[2016-12-29 12:08] LABS: Antiproteinase 3 (PR-3) Abs <3.5 U/mL (0.0-3.5); Perinuclear (P-ANCA) <1:20 titer (Neg:<1:20)
--- NOTE | 2016-12-29 12:09 | PCM.PNMED ---
Subjective Date of Service Dec 29, 2016 Subjective Intensive/Pulmonology Progress Note: Attending Dr. Gilda Ellison Quynh is a 31-year-old female with a complex past medical history significant for Crohn's disease status post total proctocolectomy with end ileostomy performed at [facility] in [place], [place]. She is on chronic glucocorticoids and Humira, with multiple prior obstructions and near obstructions, recurrent flares, and recent left UE DVT secondary to PICC placement for TPN, who presented to [facility] Emergency Department on 12/18/2016 with acute on chronic Crohn's flare who developed acute hypoxemic respiratory failure now status post intubation day #4. Hospital day #12. Telemetry overnight: Sinus rhythm, heart rate 70s, with runs of sinus tachycardia up to 130s with activity. Subjective exam and review of systems unobtainable as patient is intubated and sedated. Patient is arousable and able to answer yes and no questions with head nodding. She is able to report abdominal pain. . Exam Vital Signs Vital Sign - Last Date Time Temp Pulse Resp B/P Pulse Ox O2 Delivery O2 Flow Rate FiO2 12/29/16 08:30 36.5 84 15 90/62 95 Mechanical Ventilator 35 12/26/16 11:02 40 Intake and Output 12/28/16 12/28/16 12/29/16 Cumulative From/Thru 15:00 23:00 07:00 12/18/16 14:54 - 12/29/16 06:06 Intake Total 1807 ml 1390 ml 37042 ml Output Total 2100 ml 850 ml 78748 ml Balance -293 ml 540 ml 5613 ml Intake Oral 8710 ml IV Total 986 ml 658 ml 96767 ml Tube Feeding 115 ml 118 ml 482 ml TPN/PPN 466 ml 494 ml 2966 ml Packed Cells 300 ml Tube Irrigant 240 ml 120 ml 770 ml Output Urine Total 1900 ml 450 ml 66615 ml Stool Total 200 ml 400 ml 51453 ml Urine/Stool Mix 700 ml Gastric Drainage Total 275 ml # Voids 1 Exam General: Cahcetic young female in no acute distress, intubated and sedated HEENT: Normocephalic, atraumatic. External ears without defect. Pupils equal, round, and reactive to light. Anicteric sclerae, moist conjunctivae, and no lid lag. Endotracheal and NG tube in place. Neck: No lymphadenopathy or thyromegaly. Cardiovascular: Regular rate and rhythm with no murmurs, rubs, or gallops appreciated Pulmonary: Diffuse bronchial breath sounds throughout anterior lung castillo. No crackles or wheezes. Abdomen: Soft, scaphoid, diffuse tenderness to palpation, nondistended, ostomy in place in mid abdomen with dark liquid stool, no hematochezia or melena. Extremities: No clubbing, cyanosis, or edema. Skin: Normal temperature, turgor, and texture; no rash, ulcers, or subcutaneous nodules appreciated. Neurological: Arousable to stimulation. Follows commands. Ventilator settings: PRVC. Tidal volume 330. Respiratory rate 12. FiO2 35%. PEEP 10.0. Peak 25. Plateau 24. VBG: PH 7.467. PCO2 52.2. PO2 34.9. HCO3 37.3. On PRVC with FiO2 of 35%, PEEP of 10.0, and SPO2 65.8%. IV drips and Sedatives: Fentanyl 50 g/hr and propofol 15 g/kg/min. TPN. IV lines: Right IJ and left radial peripheral IV. I&O: Net + 5613. . IVs and Medications Medications Reviewed: Medications were reviewed in detail Lab and Diagnostics Item Value Date Time Calcium Level 8.2 mg/dL L 12/29/16 0500 Phosphorus Level 1.8 mg/dL L 12/29/16 0500 Magnesium Level 2.7 mg/dL H 12/29/16 0500 Total Bilirubin 0.7 mg/dL 12/29/16 0500 Aspartate Amino Transf (AST/SGOT) 13 U/L 12/29/16 0500 Alanine Aminotransferase (ALT/SGPT) 9 U/L 12/29/16 0500 Alkaline Phosphatase 169 U/L H 12/29/16 0500 Total Protein 5.3 g/dL L 12/29/16 0500 Albumin 3.5 g/dL 12/29/16 0500 Procalcitonin 0.06 ng/mL 12/29/16 0500 Result Diagram: 12/29/16 0500 12/29/16 0500 Microbiology Stool PCR negative. Urine culture grew mixed urogenital floor. MRSA screen negative. BAL respiratory viral PCR negative. BAL Legionella, acid-fast bacillus, PCP, CMV all pending. Blood culture 2 has no growth after 2 days. Blood fungal culture 2 pending. . X-Rays, CTs and MRIs X-RAY CHEST ONE VIEW, PORTABLE IMPRESSION: Pulmonary edema and/or diffuse bilateral pneumonia not significant changed. ARDS cannot be excluded. Dictated by: Jimmy ESCALANTE Interpreted: Keeley Bethea MD on 12/29/2016 at 8:58 CT CHEST WITHOUT CONTRAST IMPRESSION: 1. Severe bilateral pneumonia. 2. Small bilateral pleural effusions. 3. Opacification of the right lower lobe bronchus, consistent with mucous plugging. 4. Small amount of ascites. 5. Severe abdominal subcutaneous edema. 6. Findings discussed with Dr. Brandt on 17 at 1439 hrs. Dictated by: Calvin Bonds M.D. on 12/26/2016 at 14:27 CT BRAIN WITHOUT CONTRAST IMPRESSION: 1. No acute intracranial abnormality. Dictated by: Chris Heredia M.D. on 12/26/2016 at 8:25 CT ABDOMEN AND PELVIS WITHOUT CONTRAST IMPRESSION: 1. Suboptimal examination due to lack of oral and intravenous contrast. 2. There is total colectomy and right lower quadrant ileostomy. Mild concentric thickening of a short segment of small bowel loop is noted in the right lower quadrant. There is decreased overall small bowel distention compared to 2016. 3. A small amount of free peritoneal fluid, which is new. 4. Small bilateral pleural effusions with bibasilar consolidation or atelectasis. Cannot rule out bibasilar pneumonia. 5. Diffuse body wall edema and subcutaneous fluid collection with pockets of subcutaneous gas. Cannot rule out postoperative wound infection. 6. There is mesenteric and retroperitoneal lymphadenopathy, which is nonspecific. The result was discussed with Dr. Valdez on 12/24/2016 at 1405 hours. Dictated by: More Woodard M.D. on 12/24/2016 at 13:01 US VENOUS ARM DUPLEX UNILATERAL, LEFT IMPRESSION: 1. The basilic vein is not identified otherwise no definite venous thrombosis seen. Dictated by: Jimmy ESCALANTE Interpreted: Dominic Joyce MD on 12/23/2016 at 17 :07 US ABDOMEN, LIMITED IMPRESSION: Multiple stones in the gallbladder but no free air or changes to indicate acute cholecystitis. Dictated by: Esteban Cabrera M.D. on 12/18/2016 at 19:49 X-RAY ACUTE ABDOMINAL SERIES IMPRESSION: Changes are consistent with partial or early small bowel obstruction. Dictated by: Esteban Caberra M.D. on 12/18/2016 at 20:37 CT ABDOMEN AND PELVIS WITHOUT CONTRAST IMPRESSION: 1. Free air is not identified. 2. Markedly distended colon suggesting distal colonic obstruction. Rectal tube may be of benefit. 3. Question of low-density stones versus particles of air in the gallbladder. Ultrasound is suggested. ADDENDUM: Additional information is that the patient has had a colectomy. The distended loops therefore must be small bowel. In addition there is an ileostomy rather an ileal loop into the right lower quadrant. In the operative from this is reportedly fairly good. This would indicate that C. dilated small bowel loops are related to a chronic low-grade obstruction or a relatively acute high-grade obstruction. No wall thickening or air in the tsai of the dilated loops is seen. Since the patient does not have obstructive symptoms clinically this is likely to be a distended loops from chronic partial low grade obstruction of a small bowel loop. Dictated by: Esteban Cabrera M.D. on 12/18/2016 at 18:44 . Cardiac Echo Impressions Echocardiogram Interpretation Summary: The left ventricle is normal in size. The ejection fraction is estimated to be 30-35%. Except basal LV segments and apical segments which have preserved or slightly increased contractility, rest all the mid LV segments are severey hypokinetic to akinetic. This pattern favors atypical stress induced cardiomyopathy. The right ventricle is normal size.Right ventricular systolic function is at the lower limits of normal. There is moderate mitral regurgitation. There is mild to moderate tricuspid regurgitation. Right ventricular systolic pressure is estimated to be 25 mmHg plus the clinically estimated CVP which cannot be estimated on this exam. There are small-sized bilateral pleural effusions noted. The patient was in sinus bradycardia with heart rates between 57-58 bpm during the exam. . Additional Diagnostics Bronchoscopy FINDINGS: Normal appearing airways. Fluid is blood-tinged on the right and yellowish orange on the left, not consistent with alveolar hemorrhage. Samples of right upper lobe anterior segment, BAL and lingular BAL were both pooled, approximately 60 cc total. TESTING: BAL was pooled and sent for bacterial, fungal, AFB, pneumocystis, viral cultures, as well as cytology and cell count with differential. Loraine Vo MD 12/26/16 1524 Limited ileoscopy with stoma balloon dilatation under fluoroscopy: ENDOSCOPIC DIAGNOSES: 1. Severe stomal stenosis. 2. 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 3. Successful stomal dilatation to 12 mm. RECOMMENDATIONS: 1. After again cleaning the skin, application of the ostomy bag is to be performed in the ICU. 2. Continue full liquid diet. 3. As long as there are no apparent hemorrhagic complications, I think it would be fine to continue the fondaparinux this evening. 4. Dr. Abbott is planning on placing the right IJ for central access this evening and once this is in position, TPN should immediately be Kirby Valdez MD 12/24/16 1993 . Assessment & Plan Terra Beauchamp is a 31-year-old female with a complex past medical history significant for Crohn's disease status post total proctocolectomy with end ileostomy performed at [facility] in [place], [place]. She is on chronic glucocorticoids and Humira, with multiple prior obstructions and near obstructions, recurrent flares, and recent left UE DVT secondary to PICC placement for TPN, who presented to [facility] Emergency Department on 12/18/2016 with acute on chronic Crohn's flare who developed acute hypoxemic respiratory failure now status post intubation day #4. Hospital day #12. 1. Acute hypoxemic respiratory failure, not present on admission. Active. - The patient became increasingly dyspneic and hypoxemic and is now status post intubation via anesthesiology. - Likely multifactorial and secondary to ARDS from TPN administration and capillary leak with a small contribution from cardiogenic pulmonary edema from newly diagnosed stress cardiomyopathy. - Chest x-ray revealed pulmonary edema. - CT chest without contrast revealed severe bilateral pneumonia and right bronchus opacification consistent with mucus plugging, as above. - Echocardiogram revealed stress induced cardiomyopathy with an EF of 30%-35%, as above. - Discontinued diuresis with Lasix gtt as patient had good diuretic response and was volume overloaded with net +11L now down to 5.6L. Dobutamine was used for blood pressure support during diuresis but continuing for stress induced cardiomyopathy. - BAL performed revealed normal appearing airways, as above. BAL respiratory viral PCR negative. BAL Legionella, acid-fast bacillus, PCP, CMV all pending. - Continue ventilator with settings as above but lower RR and possibly PEEP as tolerated. - Continue ABG to monitor ventilator. - Continue propofol and fentanyl for sedation, as above. 2. Stress induced cardiomyopathy with EF 30%-35%, presumed present on admission. Active. - Continue dobutamine for stress induced cardiomyopathy per cardiology. - Echocardiogram revealed stress induced cardiomyopathy with an EF of 30%-35%, as above. - Cardiology consulted and following. We appreciate their time and care of the patient. 3. Distal terminal ileal enteroenteric fistulae, acuity unknown, present on admission. Active. - She has been complaining of generalized abdominal pain, worse in the LLQ, associated with nausea and vomiting. - At least one enteroenteric fistula visualized see endoscopy note for details, as above. - Continue fentanyl gtt for pain control, as above. - GI consulted and following. We appreciate their time and care of the patient. - Surgery consulted and following. We appreciate their time and care of the patient. 4. Early or partial acute small bowel obstruction, present on admission. Active. - Most recent abdominal imaging shows evidence of developing small bowel obstruction and other strictures. - Continue TPN and advance to goal. Per discussion with Surgery and GI discontinued TF as patient has abdominal pain and severe small bowel dilatation. - GI consulted and following. We appreciate their time and care of the patient. - Surgery consulted and following. We appreciate their time and care of the patient. 5. Acute thrombocytopenia, not present on admission. Improving. - Likely partly dilutional and possibly from bone marrow suppression from severe malnourishment. - Platelet count trending up. Lowest count 33. - Continue to monitor platelet count daily. 6. Acute on chronic microcytic anemia, present on admission. Active. - Acute portion most likely dilutional due as she was net +11 L and chronic portion likely iron deficiency from severe malnourishment. - 2 units of packed red blood cells were transfused, this in conjunction with diuresis has brought her hemoglobin to greater than 10. - Consider IV iron supplementation. - No overt signs of bleeding. Continue to monitor hemoglobin and hematocrit daily. Chronic problems per primary team: 7. Chronic Crohn's disease status post colectomy and ileostomy with stomal stenosis, present on admission. Active. - Patient is immunocompromised due to Humira and steroids for Crohn disease.Continue hydrocortisone 50 mg every 8 hours for stress dosing. - GI performed endoscopy with successful 12 mm stomal dilatation see endoscopy note for details, as above. - The patient will likely need revision of stenotic stoma in the future once nutritional status is improved. - Next Humira dose has been held during acute illness. - Plan for PICC line placement in future. - GI consulted and following. We appreciate their time and care of the patient. 8. Chronic severe protein calorie malnutrition, present on admission. Active. - Patient is not a PEG tube candidate per GI but has previously been noncompliant with Dobhoff due to discomfort and anxiety therefore options for feeding are limited to TPN currently. - Continue TPN and advance to goal. Per discussion with Surgery and GI discontinued TF as patient has abdominal pain and severe small bowel dilatation as above. - Continue albumin 25 g IV every 8 hours. 9. Recent upper extremity DVT, not present on admission. Resolved. - Ultrasound did not show definite DVT, as above. - Anticoagulation with Fondaparinux discontinued as patient received sufficient course of anticoagulation for UE DVT in October after PICC line placement. S 10. Anxiety and depression, present on admission. Active. - Patient's anxiety and depression are related to disease condition but causing significant morbidity none the less. - Continue Klonopin 0.5mg BID and Fluoxetine 20 mg daily. 11. Likely acute thrush, present on admission. - Secondary to prednisone usage. - Will plan to treat with Nystatin suspension. Disposition: Guarded as the patient has significant comorbidities. . GI Prophylaxis: H2 luis carlos VTE Prophylaxis: SCDs VTE Mechanical Devices: Intermittant Pneumatic CD Resuscitation Status: CPR: Attempt Resuscitation Attending Statement I have seen and examined this patient with the resident physician. Vital signs , labs, imaging have been reviewed. I agree with the assessment and plan above. Please refer to my separately dictated progress note for any modifications to above. Loraine Vo M.D. Pulmonary and Critical Care medicine Pager [phone] Dania Brandt DO Dec 29, 2016 10:46 Loraine Vo MD Dec 29, 2016 13:57
[2016-12-29] MEDS: DOBUTamine 500 mg/250 mL D5W IV SCH (12:10)
--- NOTE | 2016-12-29 13:05 | PROG NOTE ---
[address] [address] PROGRESS NOTE PATIENT: MAE FELIZ : 1985 MR#: [id number] ADMIT: 12/18/2016 JOB ID: [id number] DATE: 12/29/2016 PULMONARY CRITICAL CARE PROGRESS NOTE: The patient is a 31-year-old woman with Crohn's disease, severe protein calorie malnutrition, ileostomy stomal stenosis, here in the ICU with respiratory failure requiring mechanical ventilation. The patient was seen and evaluated with resident physician, Dania Brandt. Refer to her separate detailed note for additional information. INTERVAL HISTORY: She remains on the ventilator. FiO2 is down to 35%. Her Lasix drip and dobutamine were stopped yesterday because of significant electrolyte abnormalities with the Lasix. REVIEW OF SYSTEMS: Unable to obtain, but the nurse tells me the patient admitted to abdominal pain. PHYSICAL EXAMINATION: Vital signs reviewed. She is afebrile. Vitals are notable for systolic blood pressures between 80s and 90s. Sats are in the mid 90s on 35% FiO2 with 10 cm of PEEP. When the PEEP was turned down to 8 and then 5 cm, her sats drifted down accordingly to 92-jeanine and then 90 or less. General: A thin, cachectic woman with cushingoid facies who opens her eyes to voice and nods to some questions. She appears comfortable. Chest: Bilateral rhonchi. Abnormal breath sounds. LABORATORIES: Reviewed. CBC within normal limits. Chemistry also reviewed, and electrolytes are normal today. Imaging: Chest x-ray continues to show dense hilar predominant batwing distribution infiltrates. ET tube is in appropriate position. There appears to be no improvement in chest x-ray. Arterial blood gas from this morning shows pH of 7.46, pCO2 of 52, pO2 of 34, and bicarb of 37. ASSESSMENT AND RECOMMENDATIONS: 1. Acute hypoxic respiratory failure. 2. Acute respiratory distress syndrome. 3. Cardiomyopathy, ejection fraction 30% to 35%. 4. Severe protein calorie malnutrition. 5. Crohn's disease, on immunosuppressants with Humira and steroids. 6. Severe hypoalbuminemia. 7. Upper extremity peripherally inserted central catheter-associated deep venous thrombosis, October 2016, on fondaparinux for two months. 8. Thrombocytopenia. This unfortunate 31-year-old woman with severe Crohn's disease, status post colectomy with ileostomy, now has stomal stenosis and severe protein calorie malnutrition. She was transferred to the intensive care unit with worsening hypoxemia and pulmonary infiltrates and intubated on December 26 for respiratory failure and acute respiratory distress syndrome. Results from her bronchoscopy and lavage are still pending, but bacterial and viral studies are all negative, so we can stop all of her antibacterials, although the distribution and appearance of her infiltrates are not particularly consistent with Pneumocystis, so I am okay with switching her back to prophylaxis only. She certainly meets criteria for Bactrim for primary care physician prophylaxis because of the Humira plus steroids at the very least, and her malnutrition adds another risk factor as reminded by Dr. Bynum. Fungal serologies so far are not particularly concerning for an underlying fungal infection. As indicated, she does have significant cardiomyopathy that was not previously known. Right now, our working theory is that she had very low oncotic pressure from hypoalbuminemia from severe malnutrition, and once she started to get the total parenteral nutrition, the sudden increase in oncotic pressure led to capillary leak and severe flash pulmonary edema/acute respiratory distress syndrome. From a ventilator standpoint, when we tried a pressure support of 8/8, she did very poorly. This, and her chest x-ray looking significantly unchanged, tells me that she is not ready to be weaned yet. We leave her on a PEEP of 10 today at the very least. Cardiology is also seeing her, and I asked for their advice and any other medical therapy with regards to her cardiomyopathy. We are doing some research to see if there is any association between Humira and cardiomyopathy. Her mother apparently spoke with the primary care team over the weekend and changed the patient's code status to Do Not Resuscitate. Nutrition trotter, she is getting total parenteral nutrition and also a very low rate of tube feeding at 10 cc an hour. Surgery team, Dr. Peres, expressed significant concern that this tube feeding could adversely affect her gut and precipitate a surgical emergency. Also, Dr. Valdez is concerned that she is having abdominal pain with the slow rate of tube feedings, so we decided to stop tube feeds at this point and just continue total parenteral nutrition with a goal of 110% of her calories. TIME: Critical care time is 45 minutes.
--- NOTE | 2016-12-29 14:56 | PROG NOTE ---
[address] [address] PROGRESS NOTE PATIENT: MAE FELIZ : 1985 MR#: [id number] ADMIT: 12/18/2016 JOB ID: [id number] DATE: 12/29/2016 SUBJECTIVE: The patient is a 31-year-old lady with Crohn's disease. She underwent total colectomy, which includes resection of the anus and ileostomy at [facility] in 2013. She is profoundly malnourished and has significant anemia. She was hospitalized since December 24 when she presented with fever and abdominal distention. She underwent limited ileoscopy with stomal balloon dilatation on December 24, 2016. She later developed ARDS requiring mechanical ventilation. Echocardiogram on December 26, 2016 showed normal left ventricular size with ejection fraction of 30% to 35%, with wall motion compatible with a stress-induced cardiomyopathy. Moderate mitral regurgitation and mild to moderate tricuspid regurgitation. OBJECTIVE: The patient is currently intubated. Temp is 36.5. Blood pressure is 79/52. Pulse 68. Body weight is 44.3 kg. Head and face have normal configuration. Nonicteric sclerae. Dry mucosa. Neck supple. No jugular venous distention or carotid bruits. Chest with normal expansion. Lungs are clear to auscultation anteriorly. Heart: The first and second heart sounds are normal. No gallop or murmur. Abdomen soft with diminished bowel sounds. Extremities: Trace edema. No clubbing or cyanosis. DIAGNOSTIC DATA: Blood tests showed hemoglobin 7.9, WBC 8.5, platelet 64. Sodium 102, bicarb 34, BUN 6, creatinine 0.37, glucose 176, AST 13, ALT 9, albumin 3.5. EKG from December 25, 2016 shows sinus rhythm, rate 57 per minute. IMPRESSION: 1. Cardiomyopathy, likely due to stress cardiomyopathy and cardiac cachexia. 2. Hypotension. 3. Acute respiratory distress syndrome. 4. Anemia and thrombocytopenia. 5. Crohn's disease. 6. Severe protein calorie malnutrition. PLAN: I have personally reviewed her echocardiogram. His LV ejection fraction is more like 25% to 30%. She still has basal wall motion contractility. The apical segments are akinetic. This picture is compatible with stress-induced cardiomyopathy. There are literatures in 1970 and 1979 that report inadequate intake of protein results in proportionate loss of skeletal and myocardial muscle. Nutritional support may play a role in improving cardiac function in patient with cardiac cachexia. Her echocardiogram does not demonstrate left ventricular outflow tract obstruction. I will use low-dose dobutamine for temporary improved cardiac function to provide better perfusion to other organs. Critical care time: 45 minutes. MTDD
[2016-12-29] MEDS: 0.9% Sodium Chloride 1,000 ML IV SCH (15:59)
[2016-12-29] MEDS: fentaNYL 2,500 mCg/250 mL 2,500 MCG in IV Premix 1 EACH IV PRN (16:05)
[2016-12-29] MEDS: Multivitamins w/Minerals 5 mL Liquid Supplement PO SCH (16:35)
[2016-12-29] MEDS: Total Parenteral Nutrition 1 BAG IV SCH (20:18)
[2016-12-29] MEDS: Ondansetron 2 mg/mL 2 mL Inj IVPUSH PRN (21:49)
[2016-12-30] VITALS (14 sets, daily range): BP systolic 104–118; BP diastolic 74–94; PULSE 87–122; RESP 13–28; O2SAT 94–100
[2016-12-30] MEDS: Albumin 25% 25 GM in IV Premix 1 EACH IV SCH ×3 (00:19→16:03)
[2016-12-30] MEDS: Hydrocortisone 50 mg/mL 2 mL Inj IVPUSH SCH ×3 (00:19→16:03)
[2016-12-30] MEDS: Chlorhexidine 0.12% 15 mL Oral Solution MT SCH ×6 (00:19→20:30)
[2016-12-30] MEDS: Piperacillin-Tazo 3.375 Gm Inj 3.375 GM in Dextrose 5% Minibag Plus 50 ML IV SCH (00:20)
[2016-12-30 04:48] LABS: BASOPHILS % (AUTO) 0.1 % (0-3); EOSINOPHILS % (AUTO) 0 % (0-5); MONOCYTES % (AUTO) 2.7 % (4-12); Mean Corpuscular Hemoglobin 25.2 pg (27.0-35.0); Mean Corpuscular Volume 83.3 fL (81-100); NEUTROPHILS % (AUTO) 91.7 % (40-74); Platelet Count 102 bil/L (150-400)
[2016-12-30 05:05] LABS: Phosphorus 3.5 mg/dL (2.5-4.9)
[2016-12-30] MEDS: Propofol Inj 1,000,000 MCG in IV Premix 1 EACH IV PRN (06:06)
[2016-12-30] MEDS: Famotidine Inj 20 MG in IV Premix 1 EACH IV SCH ×2 (07:46→21:06)
[2016-12-30] MEDS: Multivitamins w/Minerals 5 mL Liquid Supplement PO SCH (07:51)
[2016-12-30] MEDS: Nystatin 100,000 Unit/mL 5 mL Suspension PO SCH ×2 (07:51→21:06)
[2016-12-30] MEDS ORDERED: Trimethoprim-Sulfa 160 mg-800 mg Tablet PO SCH (08:30)
--- NOTE | 2016-12-30 08:33 | ABG ---
DateTimeAnalyzed 08:29:00 -_ pH ____7.502 - 7.350 7.450 pCO2 ___41.6__ -mmHg 35.0 45.0 pO2 ___83.2__ -mmHg 69.0 116 HCO3- ___32.3__ -mmol/L 22.0 26.0 ABE ____8.6__ -mmol/L -2.0 2.0 tHb ____8.0__ -g/dL O2Hb ___93.1__ -% COHb ____0.8__ -% MetHb ____2.2__ -% sO2 ___96.0__ -% FIO2 ___35.0__ -% PRVC 360 - PEEP ___10.0__ -cmH2O Set_RR ___10.0__ -b/min Vt __360.0__ -L Drawn By NB - Date/Time Notified____ 08:33:00 -_ Spontaneous_RR ___17.0__ -b/min Oxygen Device 1 VENTILATOR - Notified By NB - Notified Whom _DR ROBYN - B 761 -mmHg tO2 ___10.7__ -Vol% Daryl test N/A -
--- NOTE | 2016-12-30 09:18 | PROG NOTE ---
[address] [address] PROGRESS NOTE PATIENT: MAE FELIZ : 1985 MR#: [id number] ADMIT: 12/18/2016 JOB ID: [id number] DATE: 12/30/2016 INFECTIOUS DISEASE FOLLOW UP NOTE: REASON FOR FOLLOW UP: Ventilatory dependent respiratory failure with possible fungal superinfection. INTERVAL HISTORY: Overnight, the patient has been relatively stable. She continues to be on the ventilator and to require low dose dobutamine because of her poor ejection fraction and congestive heart failure. She has had no fevers and denies fevers or chills this morning. She notes that she has significant abdominal pain which is chronic but no other new complaints. History taking is difficult as the patient remains on the ventilator and intubated but she can communicate by shaking her head, and as noted, she has no fever, no chills. PHYSICAL EXAMINATION: Reveals an afebrile woman, temperature 37.1, pulse 105, blood pressure 117/88. She is saturating well on 35% and 10 of PEEP. Her eyes are without scleral icterus. Oral endotracheal tube, orogastric tube in good position. Overall, the patient is extraordinarily wasted which has not changed, of course. Lungs quite clear bilaterally. Cardiac tones: Regular rate and rhythm. About 105 without significant murmur. The abdomen remains diffusely tender without much change. There is an ileostomy present in the right side of the abdomen which is also unchanged. Taylor catheter is present. Extreme wasting of the extremities without skin breakdown, edema or cellulitis. LABORATORIES: Include white count 8100, unchanged from yesterday. Creatinine 0.32. LFTs basically normal except for a slightly elevated alk phos to 172. HIV has come back negative. Urine histo has come back negative in this [place]. Micro studies reveal numerous negative blood cultures, negative stool PCR, negative bronch wash PCR, negative bronch wash cultures though we still wait on the Pneumocystis stain. IMAGING: Includes a chest x-ray done yesterday which shows pulmonary edema. The notes from Cardiology were reviewed. The sql report writer thinks her ejection fraction is about 25% and her echo is compatible with stress-induced cardiomyopathy though there is a possibility that there could be a cardiac cachexia ongoing as well. IMPRESSION: At this point, I see no definitive evidence of any infection. The patient remains at risk for Pneumocystis because of her on and off high-dose steroids and recent use of Humira, and I think it is reasonable to continue on prophylactic dose of Bactrim, but I see no indication for antibacterials or antifungals in therapeutic doses. RECOMMENDATIONS: 1. We await the many pending cultures. 2. We await the final stains from the bronch wash. 3. I would lower the dose of Bactrim to 1 tablet once a day as prophylaxis. This is the standard dose and known to be highly effective. 4. Will continue to follow this complex patient with you.
[2016-12-30] MEDS: Heparin 5,000 Unit/mL Inj SUBQ SCH ×2 (09:58→16:03)
[2016-12-30] MEDS: Furosemide 10 mg/mL 2 mL Inj IVPUSH SCH (09:58)
--- NOTE | 2016-12-30 10:27 | DRSVH ---
PROCEDURE: X-RAY CHEST ONE VIEW, PORTABLE ([id number]) INDICATIONS: Intubated, Pulm edema, PNA TECHNIQUE: One view of the chest was acquired. COMPARISON: [facility], CR, XR CHEST 1VW (PORTABLE), 12/29/2016, 5:21. FINDINGS: Surgical changes and devices: Stable position of ETT and nasogastric tube and right IJ CVL. Lungs and pleura: Diffuse, widespread bilateral pulmonary interstitial and air space opacities are p resent not significantly changed from prior examination with relative sparing of the apices. Mediastinum: Mediastinal contours appear normal. Heart size is normal. Bones and chest wall: No suspicious bony lesions. Overlying soft tissues appear unremarkable. IMPRESSION: Pulmonary edema and/or diffuse bilateral pneumonia not significantly changed. ARDS canno t be excluded. Dictated by: Jimmy Eubanks [facility] Interpreted: More Woodard MD on 12/30/2016 at 10:27 Transcribed by: JO-ANN on 12/30/2016 at 10:27 Approved by: More Woodard M.D. on 12/30/2016 at 11:28
--- NOTE | 2016-12-30 10:40 | PCM.PNMED ---
Subjective Date of Service Dec 30, 2016 Subjective Intensive/Pulmonology Progress Note: Attending Dr. Gilda Beauchamp is a 31-year-old female with a complex past medical history significant for Crohn's disease status post total proctocolectomy with end ileostomy performed at [facility] in [place], [place]. She is on chronic glucocorticoids and Humira, with multiple prior obstructions and near obstructions, recurrent flares, and recent left UE DVT secondary to PICC placement for TPN, who presented to [facility] Department on 12/18/2016 with generalized abdominal pain, worse in the LLQ, associated with nausea and vomiting likely secondary to chronic partial low-grade small bowel obstruction from stenotic stoma who later in her hospitalization developed acute hypoxemic respiratory failure now status post intubation day # 5. Hospital day #13. Overnight: There were no acute events. Nursing staff noted that the patient had minimal urine output. Telemetry overnight: Sinus rhythm, heart rate 80 to 90's, with runs of sinus tachycardia up to 120's with activity. Subjective exam and review of systems unobtainable as patient is intubated and sedated. Patient is arousable and able to answer yes and no questions with head nodding. She is able to nod yes to continued abdominal pain. The patient had a PST at 05/12 which she failed in minutes due to anxiety and tachypnea. . Exam Vital Signs Vital Sign - Last Date Time Temp Pulse Resp B/P Pulse Ox O2 Delivery O2 Flow Rate FiO2 12/30/16 08:00 105 117/88 98 35 12/30/16 07:36 37.1 13 Mechanical Ventilator 12/26/16 11:02 40 Intake and Output 12/29/16 12/29/16 12/30/16 Cumulative From/Thru 15:00 23:00 07:00 12/18/16 14:54 - 12/30/16 06:30 Intake Total 1350 ml 1430 ml 53704 ml Output Total 250 ml 680 ml 32922 ml Balance 1100 ml 750 ml 7463 ml Intake Oral 8710 ml IV Total 859 ml 893 ml 54519 ml Tube Feeding 482 ml TPN/PPN 491 ml 537 ml 3994 ml Packed Cells 300 ml Tube Irrigant 770 ml Output Urine Total 150 ml 300 ml 62322 ml Stool Total 330 ml 74662 ml Urine/Stool Mix 700 ml Gastric Drainage Total 100 ml 50 ml 425 ml # Voids 1 Exam General: Cachetic young female in no acute distress, intubated and sedated. HEENT: Normocephalic, atraumatic. External ears without defect. Pupils equal, round, and reactive to light. Anicteric sclerae, moist conjunctivae, and no lid lag. Endotracheal and OG tube in place. Neck: No lymphadenopathy or thyromegaly. Cardiovascular: Regular rate and rhythm with no murmurs, rubs, or gallops appreciated Pulmonary: Diffuse bronchial breath sounds throughout anterior lung castillo. No crackles or wheezes. Abdomen: Soft, scaphoid, diffuse tenderness to palpation, nondistended, ostomy in place in mid abdomen with dark liquid stool, no hematochezia or melena. Extremities: Bilateral +2 pitting edema to ankles bilaterally. No clubbing or cyanosis. Skin: Normal temperature, turgor, and texture; no rash, ulcers, or subcutaneous nodules appreciated. Neurological: Arousable to stimulation. Follows commands. Ventilator settings: PRVC. Tidal volume 360. Respiratory rate 10. FiO2 35%. PEEP 10.0. Peak 22. Plateau 23. VBG: PH 7.502. PCO2 42.2. PO2 83.2. HCO3 32.3. On PRVC with FiO2 of 35%, PEEP of 10.0, and SPO2 96%. IV drips and Sedatives: Fentanyl 75 g/hr and propofol 20 g/kg/min. TPN. IV lines: Right IJ and left radial peripheral IV. I&O: Net + [phone]. . IVs and Medications Medications Reviewed: Medications were reviewed in detail Lab and Diagnostics Item Value Date Time Calcium Level 8.5 mg/dL 12/30/16414 Phosphorus Level 3.5 mg/dL 12/30/16414 Magnesium Level 2.6 mg/dL 12/30/16414 Total Bilirubin 0.7 mg/dL 12/30/16414 Aspartate Amino Transf (AST/SGOT) 34 U/L 12/30/16414 Alanine Aminotransferase (ALT/SGPT) 18 U/L 12/30/16414 Alkaline Phosphatase 172 U/L H 12/30/16414 Total Protein 5.9 g/dL L 12/30/16414 Albumin 3.8 g/dL 3/28/17 0415 Result Diagram: 12/30/165 12/30/16 0415 Microbiology Stool PCR negative. Urine culture grew mixed urogenital floor. MRSA screen negative. BAL respiratory viral PCR negative. BAL Legionella and acid-fast bacillus negative. BAL PCP and CMV pending. Blood culture 2 has no growth after 2 days. Blood fungal culture 2 pending. . X-Rays, CTs and MRIs X-RAY CHEST ONE VIEW, PORTABLE IMPRESSION: Pulmonary edema and/or diffuse bilateral pneumonia not significantly changed. ARDS cannot be excluded. Dictated by: Jimmy ESCALANTE Interpreted: More Woodard MD on 12/30/2016 at 10:27 CT CHEST WITHOUT CONTRAST IMPRESSION: 1. Severe bilateral pneumonia. 2. Small bilateral pleural effusions. 3. Opacification of the right lower lobe bronchus, consistent with mucous plugging. 4. Small amount of ascites. 5. Severe abdominal subcutaneous edema. 6. Findings discussed with Dr. Brandt on 12.26.16 at 1439 hrs. Dictated by: Calvin Bonds M.D. on 12/26/2016 at 14:27 CT BRAIN WITHOUT CONTRAST IMPRESSION: 1. No acute intracranial abnormality. Dictated by: Chris Heredia M.D. on 12/26/2016 at 8:25 CT ABDOMEN AND PELVIS WITHOUT CONTRAST IMPRESSION: 1. Suboptimal examination due to lack of oral and intravenous contrast. 2. There is total colectomy and right lower quadrant ileostomy. Mild concentric thickening of a short segment of small bowel loop is noted in the right lower quadrant. There is decreased overall small bowel distention compared to 2016. 3. A small amount of free peritoneal fluid, which is new. 4. Small bilateral pleural effusions with bibasilar consolidation or atelectasis. Cannot rule out bibasilar pneumonia. 5. Diffuse body wall edema and subcutaneous fluid collection with pockets of subcutaneous gas. Cannot rule out postoperative wound infection. 6. There is mesenteric and retroperitoneal lymphadenopathy, which is nonspecific. The result was discussed with Dr. Valdez on 12/24/2016 at 1405 hours. Dictated by: More Woodard M.D. on 12/24/2016 at 13:01 US VENOUS ARM DUPLEX UNILATERAL, LEFT IMPRESSION: 1. The basilic vein is not identified otherwise no definite venous thrombosis seen. Dictated by: Jimmy ESCALANTE Interpreted: Dominic Joyce MD on 12/23/2016 at 17 :07 US ABDOMEN, LIMITED IMPRESSION: Multiple stones in the gallbladder but no free air or changes to indicate acute cholecystitis. Dictated by: Esteban Cabrera M.D. on 12/18/2016 at 19:49 X-RAY ACUTE ABDOMINAL SERIES IMPRESSION: Changes are consistent with partial or early small bowel obstruction. Dictated by: Esteban Cabrera M.D. on 12/18/2016 at 20:37 CT ABDOMEN AND PELVIS WITHOUT CONTRAST IMPRESSION: 1. Free air is not identified. 2. Markedly distended colon suggesting distal colonic obstruction. Rectal tube may be of benefit. 3. Question of low-density stones versus particles of air in the gallbladder. Ultrasound is suggested. ADDENDUM: Additional information is that the patient has had a colectomy. The distended loops therefore must be small bowel. In addition there is an ileostomy rather an ileal loop into the right lower quadrant. In the operative from this is reportedly fairly good. This would indicate that C. dilated small bowel loops are related to a chronic low-grade obstruction or a relatively acute high-grade obstruction. No wall thickening or air in the tsai of the dilated loops is seen. Since the patient does not have obstructive symptoms clinically this is likely to be a distended loops from chronic partial low grade obstruction of a small bowel loop. Dictated by: Esteban Cabrera M.D. on 12/18/2016 at 18:44 . Cardiac Echo Impressions Echocardiogram Interpretation Summary: The left ventricle is normal in size. The ejection fraction is estimated to be 30-35%. Except basal LV segments and apical segments which have preserved or slightly increased contractility, rest all the mid LV segments are severey hypokinetic to akinetic. This pattern favors atypical stress induced cardiomyopathy. The right ventricle is normal size.Right ventricular systolic function is at the lower limits of normal. There is moderate mitral regurgitation. There is mild to moderate tricuspid regurgitation. Right ventricular systolic pressure is estimated to be 25 mmHg plus the clinically estimated CVP which cannot be estimated on this exam. There are small-sized bilateral pleural effusions noted. The patient was in sinus bradycardia with heart rates between 57-58 bpm during the exam. . Additional Diagnostics Bronchoscopy FINDINGS: Normal appearing airways. Fluid is blood-tinged on the right and yellowish orange on the left, not consistent with alveolar hemorrhage. Samples of right upper lobe anterior segment, BAL and lingular BAL were both pooled, approximately 60 cc total. TESTING: BAL was pooled and sent for bacterial, fungal, AFB, pneumocystis, viral cultures, as well as cytology and cell count with differential. Loraine oV MD 12/26/16 2133 Limited ileoscopy with stoma balloon dilatation under fluoroscopy: ENDOSCOPIC DIAGNOSES: 1. Severe stomal stenosis. 2. 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 3. Successful stomal dilatation to 12 mm. RECOMMENDATIONS: 1. After again cleaning the skin, application of the ostomy bag is to be performed in the ICU. 2. Continue full liquid diet. 3. As long as there are no apparent hemorrhagic complications, I think it would be fine to continue the fondaparinux this evening. 4. Dr. Abbott is planning on placing the right IJ for central access this evening and once this is in position, TPN should immediately be Kirby Valdez MD 12/24/16 0117 . Assessment & Plan eTrra Beauchamp is a 31-year-old female with a complex past medical history significant for Crohn's disease status post total proctocolectomy with end ileostomy performed at [facility] in [place], [place]. She is on chronic glucocorticoids and Humira, with multiple prior obstructions and near obstructions, recurrent flares, and recent left UE DVT secondary to PICC placement for TPN, who presented to [facility] Department on 12/18/2016 with generalized abdominal pain, worse in the LLQ, associated with nausea and vomiting likely secondary to chronic partial low-grade small bowel obstruction from stenotic stoma who later in her hospitalization developed acute hypoxemic respiratory failure now status post intubation day # 5. Hospital day #13. 1. Acute hypoxemic respiratory failure, not present on admission. Active. - The patient became increasingly dyspneic and hypoxemic and is now status post intubation. - Likely multifactorial and secondary to ARDS from TPN administration and capillary leak with some contribution from cardiogenic pulmonary edema from newly diagnosed stress cardiomyopathy. - Chest x-ray revealed slightly pulmonary edema. - CT chest without contrast revealed severe bilateral pneumonia and right bronchus opacification consistent with mucus plugging, as above. - Echocardiogram revealed stress induced cardiomyopathy with an EF of 30%-35%, as above. - Discontinued diuresis with Lasix gtt as patient had good diuretic response and was volume overloaded with net +11L now down to 5.6L. Dobutamine was used for blood pressure support during diuresis but continuing for stress induced cardiomyopathy. - BAL performed revealed normal appearing airways, as above. BAL respiratory viral PCR negative. BAL legionella and acid-fast bacillus negative. BAL PCP and CMV pending, as above. - Fungal blood cultures pending, as above. - Continue ventilator with settings, as above. - Continue ABG daily to monitor ventilator. - Continue propofol and fentanyl for sedation, as above. - Continue sedation vacation and pursue PST. 2. 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 Active. - Echocardiogram revealed stress induced cardiomyopathy with an EF of 30-35%, however, when reviewed by Dr. Yeung of cardiology the EF is closer to 25-30%. - Continue dobutamine for stress induced cardiomyopathy and cardiac cachexia per cardiology. - Continue gentle diuresis with Lasix 20 mg IV daily. - Cardiology consulted and following. We appreciate their time and care of the patient. 3. Distal terminal ileal enteroenteric fistulae, acuity unknown, present on admission. Active. - The patient presented complaining of generalized abdominal pain, worse in the LLQ, associated with nausea and vomiting. - At least one enteroenteric fistula visualized please see endoscopy note for details, as above. - The patient will likely need revision of stenotic stoma and fistulae in the future once nutritional status is improved. - Continue fentanyl gtt for pain control, as above. - GI consulted and following. We appreciate their time and care of the patient. - Surgery consulted and following. We appreciate their time and care of the patient. 4. Chronic partial low-grade small bowel obstruction, present on admission. Resolving. - Likely secondary to stenotic ileostomy stoma. - CT abdomen and pelvis without contrast on admission revealed distended loops from probable chronic partial low-grade small bowel obstruction. Repeat CT abdomen and pelvis without contrast showed decreased small bowel distention, as above. - Continue TPN and advance to goal with addition of micronutrients. Per discussion with Surgery and GI discontinued TF as patient has continued abdominal pain and severe small bowel dilatation which could potentially turn into a surgical emergency. - GI performed endoscopy with successful 12 mm stomal dilatation see endoscopy note for details, as above. - GI consulted and following. We appreciate their time and care of the patient. - Surgery consulted and following. We appreciate their time and care of the patient. 5. Acute thrombocytopenia, not present on admission. Resolving. - Likely partly dilutional and possibly from bone marrow suppression from severe malnourishment. - Platelet count trending up. Lowest count 33. - Continue to monitor platelet count daily. 6. Acute on chronic microcytic anemia, present on admission. Active. - Acute portion most likely dilutional due as she was net +11 L and chronic portion likely from severe malnourishment causing multiple vitamin deficiencies and likely bone marrow suppression. - Received 2 units of PRBC to date during this admission. - No overt signs of bleeding. Continue to monitor hemoglobin and hematocrit daily. Chronic problems per primary team: 7. Chronic Crohn's disease status post colectomy and ileostomy with stomal stenosis, present on admission. Active. - Patient is immunocompromised due to Humira and steroids for Crohn disease. Continue hydrocortisone 50 mg every 8 hours for steroid stress dosing. - The patient will likely need revision of stenotic stoma and fistulae in the future once nutritional status is improved. - Next Humira dose has been held during acute illness. - GI consulted and following. We appreciate their time and care of the patient. 8. Chronic severe protein calorie malnutrition, present on admission. Active. - Patient is not a PEG tube candidate per GI but has previously been noncompliant with Dobhoff due to discomfort and anxiety therefore options for feeding are limited to TPN currently. - Continue TPN and advance to goal. Per discussion with Surgery and GI discontinued TF as patient has abdominal pain and severe small bowel dilatation as above. - Continue albumin 25 g IV every 8 hours. 9. Recent upper extremity DVT, not present on admission. Resolved. - Ultrasound did not show definite DVT, as above. - Anticoagulation with Fondaparinux discontinued as patient received sufficient course of anticoagulation for UE DVT in October after PICC line placement. S 10. Anxiety and depression, present on admission. Active. - Patient's anxiety and depression are related to disease condition but causing significant morbidity none the less. - Continue Klonopin 0.5mg BID and Fluoxetine 20 mg daily. 11. Likely acute thrush, present on admission. - Secondary to prednisone usage. - Will plan to treat with Nystatin suspension. Disposition: Guarded as the patient has significant comorbidities. . GI Prophylaxis: H2 luis carlos VTE Prophylaxis: SCDs VTE Mechanical Devices: Intermittant Pneumatic CD Resuscitation Status: CPR: Attempt Resuscitation Attending Statement I have seen and examined this patient with the resident physician. Vital signs , labs, imaging have been reviewed. I agree with the assessment and plan above. Please refer to my separately dictated progress note for any modifications to above. Loraine Vo M.D. Pulmonary and Critical Care medicine Pager [phone] Dania Brandt DO Dec 30, 2016 10:10 Loraine Vo MD Dec 31, 2016 07:38
--- NOTE | 2016-12-30 10:48 | PCM.PHAPRO ---
Progress Date of Service: Dec 30, 2016 tpn . CBC Test 12/18/16 16:30 12/25/16 03:55 12/27/16 14:10 12/30/16 04:15 Erythrocyte Sedimentation Rate 10mm/hr (0-32) Band Neutrophils % 2% (1-5) Hold Purple Top Tube Received (Received) White Blood Count 8.1th/mm3 (3.8-10.1) Red Blood Count 3.05mil/mm3 (3.90-5.20) Hemoglobin 7.7g/dL (12.0-15.6) Hematocrit 25.4% (35.0-46.0) Mean Corpuscular Volume 83.3fL (81-100) Mean Corpuscular Hemoglobin 25.2pg (27.0-35.0) Mean Corpuscular Hemoglobin Concent 30.3% (32.0-37.0) Red Cell Distribution Width 19.6% (12.3-15.4) Platelet Count 102bil/L (150-400) Neutrophils (%) (Auto) 91.7% (40-74) Lymphocytes (%) (Auto) 4.8% (14-46) Monocytes (%) (Auto) 2.7% (4-12) Eosinophils (%) (Auto) 0% (0-5) Basophils (%) (Auto) 0.1% (0-3) CMP Test 12/23/16 23:26 12/25/16 03:55 12/26/16 06:54 12/26/16 17:15 Ionized Calcium 1.04mmol/L Lactic Acid Level 1.0mmol/L Ionized Calcium (Calculated) 4.47mg/dL Lactate Dehydrogenase 213U/L Myeloperoxidase <9.0U/mL Test 12/29/16 05:00 12/30/16 04:15 12/30/16 04:30 Procalcitonin 0.06ng/mL Sodium Level 139mEq/L Potassium Level 4.7mEq/L Chloride Level 98mEq/L Carbon Dioxide Level 29mmol/L Blood Urea Nitrogen 13mg/dL Creatinine 0.32mg/dL Estimat Glomerular Filtration Rate 345mL/min Glucose Level 151mg/dL Calcium Level 8.5mg/dL Phosphorus Level 3.5mg/dL Magnesium Level 2.6mg/dL Total Bilirubin 0.7mg/dL Aspartate Amino Transf (AST/SGOT) 34U/L Alanine Aminotransferase (ALT/SGPT) 18U/L Alkaline Phosphatase 172U/L Total Protein 5.9g/dL Albumin 3.8g/dL Triglycerides Level 87mg/dL Prealbumin 12mg/dL PARENTERAL NUTRITION ORDERS 7 29-Dec-16 Standard Hang Time: 2100 Substrates Total kcal: 1340 AMINO ACIDS 65 g DEXTROSE 200 g Total Volume (mL): 1000 LIPIDS 40 g Sterile Water for Injection QS mL To Infuse Over (hrs): 24 Total Volume 1000 mL At at a rate of (mL/hr): 42 Additives Sodium Chloride 40 mEq "typical" daily requirements Sodium Acetate 0 mEq Sodium 50-120mEq Potassium Chloride 60 mEq Potassium 60-120mEq Potassium Phosphate 35 mEq Phosphate 20-40mEq Calcium Gluconate 4.5 mEq Magnesium 8-32mEq Magnesium Sulfate 8 mEq Calcium 9-22mEq Acetate* 80-120mEq Chloride* 80-120mEq Regular Insulin units *Depending on acid-base status Famotidine mg Multivitamins 1 std dose Insulin Regimen Trace Elements 1 std dose none Thiamine mg Regular Low Intensity Subcut Folic Acid 1 mg Regular Medium Intensity Subcut Ascorbic Acid 1000 mg Regular High Intensity Subcut Regular Insulin Infusion Other: Special Instructions: To be infused via central line only. For delay or inturruption of TPN contact the pharmacist for alternative replacement solution. Signature Date: MAE FELIZ 0 [facility] Pt continues on TPN for nutrition support. Electrolytes today WNL, will keep same in TPN. Per discussion in rounds will add folic acid 1mg and ascorbic acid 1000mg to TPN formula. Patient is already receiving zinc in trace elements. Patient is not receiving any additional bicarb in TPN. Pharmacy will continue to follow this patient for TPN. Marisol Ritter PharmD Dec 30, 2016 10:48
[2016-12-30] MEDS: DOBUTamine 500 mg/250 mL D5W IV SCH (11:49)
--- NOTE | 2016-12-30 11:57 | PROG NOTE ---
[address] [address] PROGRESS NOTE PATIENT: MAE FELIZ : 1985 MR#: [id number] ADMIT: 12/18/2016 JOB ID: [id number] DATE: 12/30/2016 PULMONARY CRITICAL CARE PROGRESS NOTE: The patient is a 31-year-old woman with history of severe Crohn disease status post colectomy with ileostomy, severe protein calorie malnutrition, stomal stenosis in the ICU with ARDS and respiratory failure on the ventilator. The patient was seen and evaluated with resident physician, Dania Brandt. Please refer to her separate detailed note for additional information. INTERVAL HISTORY: She is more awake today writing notes. She has also improved from a respiratory standpoint based on her x-ray and oxygenation. REVIEW OF SYSTEMS: Unable to obtain. PHYSICAL EXAMINATION: Vital signs reviewed. She is afebrile. FiO2 35% with 10 cm of PEEP. She is alert, eyes open, nodding and shaking her head in response to questions and trying to write notes. Chest has some bilateral crackles, but improved examination compared to yesterday. She has no lower extremity edema. Heart: Regular rate and rhythm. Slightly tachycardic. LABORATORIES: Reviewed. WBC normal. Chemistry also within normal limits except for serum bicarbonate of 29. Arterial blood gas shows pH of 7.5, pCO2 of 41, pO2 of 83, and bicarbonate of 32 this morning. IMAGING: Chest x-ray reviewed and showed significant improvement in bilateral hilar predominant infiltrates although they persist. ASSESSMENT AND RECOMMENDATIONS: 1. Acute hypoxic respiratory failure, intubated on December 26. 2. Acute respiratory distress syndrome. 3. Takotsubo cardiomyopathy, ejection fraction around 30%. 4. Severe protein calorie malnutrition. 5. Crohn disease on immunosuppression with Humira and steroids. 6. Upper extremity PICC associated deep venous thrombophlebitis October 2016, completed two months of fondaparinux. 7. Thrombocytopenia-improving. 8. Severe hypoalbuminemia. A 31-year-old woman with severe Crohn disease status post colectomy and ileostomy with stomal stenosis and severe malnutrition secondary to that, developed respiratory failure requiring mechanical ventilation most likely due to both cardiogenic pulmonary edema and ARDS with capillary leak. She is slowly improving from a respiratory standpoint and chest x-ray while improved is really nowhere near normal yet. She seems responsive to PEEP so I have left her at 10 cm of PEEP until today, although her FiO2 is down to 35%. We held off on Lasix for the last 36 hours because of worsening electrolyte abnormalities and metabolic alkalosis, but I would like to repeat a dose today and we gave her 20 mg IV with a push of albumin as well. We tried her on pressure support 8/8 and she did really well so I lowered this slowly to 5/5. She is currently on a full spontaneous breathing trial. Doing really well. Appearing comfortable with tidal volumes around 300 and respiratory rate around 20. We will get a blood gas after 1 hour of this, and if she is doing well, I think it is okay to go ahead and extubate her. From a nutrition standpoint, she is getting TPN with the goal of 110%-120% of daily caloric requirements. We are not giving tube feeds per Surgery and GI recommendations because of concern for inability to tolerate this and precipitating a surgical emergency. She is on appropriate DVT and GI prophylaxis. She is DNR per conversation by the primary team with her mom over the weekend, but I think I can readdress this and confirm it hopefully with the patient herself post extubation. CRITICAL CARE TIME: 45 minutes.
--- NOTE | 2016-12-30 12:26 | PROG NOTE ---
[address] [address] PROGRESS NOTE PATIENT: MAE FELIZ : 1985 MR#: [id number] ADMIT: 12/18/2016 JOB ID: [id number] DATE: 12/30/2016 PROGRESS NOTE: The patient continues to improve, and will likely be extubated today or tomorrow. I have had a preliminary discussion with her and her mother regarding Groshong catheter placement for long-term TPN to get her in shape for an eventual abdominal operation. She agrees to proceed. We will be able to discuss it more detail once she is extubated. I have scheduled this for , late morning.
--- NOTE | 2016-12-30 13:10 | PCM.PNMED ---
Subjective Date of Service Dec 30, 2016 Subjective GASTROENTEROLOGY PROGRESS NOTE Patient remains intubated with light sedation. More awake today compared to previous day. Alert, appropriate responses to yes/no questioning. States increase in abdominal pain compared to yesterday. Denies any other pain. States discomfort with ET tube. Ostomy output dark green liquid. Per medical team, no blood or increased residuals out OGT suction. No family present at bedside at time of examination. CXR review shows slight improvement in bilateral pulmonary edema, but overall still quite significant. TPN continues, tube feeds remain off. Dobutamine restarted yesterday afternoon. Exam Vital Signs Vital Sign - Last Date Time Temp Pulse Resp B/P Pulse Ox O2 Delivery O2 Flow Rate FiO2 12/30/16 08:00 105 117/88 98 35 12/30/16 07:36 37.1 13 Mechanical Ventilator 12/26/16 11:02 40 Intake and Output 12/29/16 12/29/16 12/30/16 Cumulative From/Thru 15:00 23:00 07:00 12/18/16 14:54 - 12/30/16 06:30 Intake Total 1350 ml 1430 ml 60922 ml Output Total 250 ml 680 ml 39303 ml Balance 1100 ml 750 ml 7463 ml Intake Oral 8710 ml IV Total 859 ml 893 ml 78084 ml Tube Feeding 482 ml TPN/PPN 491 ml 537 ml 3994 ml Packed Cells 300 ml Tube Irrigant 770 ml Output Urine Total 150 ml 300 ml 34119 ml Stool Total 330 ml 17752 ml Urine/Stool Mix 700 ml Gastric Drainage Total 100 ml 50 ml 425 ml # Voids 1 Exam General: Frail, cachetic; intubated and sedated in CCU; no acute distress; responds well to yes/no questioning Head: Atraumatic; cushinoid-facies; sclera anicteric Neck: Right IJ in place with bandages clean/dry and intact Nose: Mucous Membr Moist/[place] Mouth: Mucous Membr dry; ETT/OGT in place and secured Chest & Lungs: Bilateral crackles at bases; poor inspiratory effort; no use accessory muscles Cardiovascular: Tacycardic at time of evaluation with rate approx 90 Pulses: Radial (equal and bilateral); dorsalis pedis equal and bilateral Abdomen: Mildly tender and distended; ostomy site free of erythema; output liquid green-brown dark stool, no evidence edy blood; hypoactive sounds : Taylor present and secured Extremities: Warm; no edema noted BLLE, compression socks and SCDs in place, without noted edema proximal to SCD; mild BLUE dependent edema with R > L likely secondary to infiltrated IV site or phleb site; BLUE soft restraints in place Skin: Warm and dry Neurological: Difficult to assess secondary to sedation, but does awaken and does appropriately respond to commands and questioning Psych: Difficult to assess secondary to somnolence; limited insight and judgment based on history of noncompliance Lab and Diagnostics Result Diagram: 12/30/1641412/30/16414 Microbiology Stool PCR negative. Urine culture grew mixed urogenital floor. MRSA screen negative. BAL respiratory viral PCR negative. BAL Legionella, acid-fast bacillus, PCP, CMV all pending. Blood culture 2 has no growth after 2 days. Blood fungal culture 2 pending. . X-Rays, CTs and MRIs Chest X-ray performed 12/29/16 IMPRESSION: Pulmonary edema and/or diffuse bilateral pneumonia not significant changed. ARDS cannot be excluded. Dictated by: Jimmy Eubanks [facility] Interpreted: Keeley Bethea MD on 12/29/2016 at 8:58 Portable chest x-ray performed 12/27/2016 IMPRESSION: 1. Persistent bilateral airspace consolidation with a perihilar predominance as well as left retrocardiac consolidation. Findings most likely represent pneumonia including from atypical etiologies. 2. Persistent bilateral pleural effusions. Chest CT without contrast performed 12/26/2016 IMPRESSION: 1. Severe bilateral pneumonia. 2. Small bilateral pleural effusions. 3. Opacification of the right lower lobe bronchus, consistent with mucous plugging. 4. Small amount of ascites. 5. Severe abdominal subcutaneous edema. 6. Findings discussed with Dr. Brandt on 12.26.16 at 1439 hrs. Dictated by: Calvin Bonds M.D. on 12/26/2016 at 14:[address] without contrast performed 12/26/2016 IMPRESSION: 1. No acute intracranial abnormality. Dictated by: Chris Heredia M.D. on 12/26/2016 at 8:25 CT ABDOMEN AND PELVIS WITHOUT CONTRAST IMPRESSION: 1. Free air is not identified. 2. Markedly distended colon suggesting distal colonic obstruction. Rectal tube may be of benefit. 3. Question of low-density stones versus particles of air in the gallbladder. Ultrasound is suggested. ADDENDUM: Additional information is that the patient has had a colectomy. The distended loops therefore must be small bowel. In addition there is an ileostomy rather an ileal loop into the right lower quadrant. In the operative from this is reportedly fairly good. This would indicate that C. dilated small bowel loops are related to a chronic low-grade obstruction or a relatively acute high-grade obstruction. No wall thickening or air in the tsai of the dilated loops is seen. Since the patient does not have obstructive symptoms clinically this is likely to be a distended loops from chronic partial low grade obstruction of a small bowel loop. Dictated by: Esteban Cabrera M.D. on 12/18/2016 at 18:44 US ABDOMEN, LIMITED IMPRESSION: Multiple stones in the gallbladder but no free air or changes to indicate acute cholecystitis. Dictated by: Esteban Cabrera M.D. on 12/18/2016 at 19:49 X-RAY ACUTE ABDOMINAL SERIES IMPRESSION: Changes are consistent with partial or early small bowel obstruction. Dictated by: Esteban Cabrera M.D. on 12/18/2016 at 20:37 Cardiac Echo Impressions Echocardiogram Interpretation Summary: The left ventricle is normal in size. The ejection fraction is estimated to be 30-35%. Except basal LV segments and apical segments which have preserved or slightly increased contractility, rest all the mid LV segments are severey hypokinetic to akinetic. This pattern favors atypical stress induced cardiomyopathy. The right ventricle is normal size.Right ventricular systolic function is at the lower limits of normal. There is moderate mitral regurgitation. There is mild to moderate tricuspid regurgitation. Right ventricular systolic pressure is estimated to be 25 mmHg plus the clinically estimated CVP which cannot be estimated on this exam. There are small-sized bilateral pleural effusions noted. The patient was in sinus bradycardia with heart rates between 57-58 bpm during the exam. . Additional Diagnostics Bronchoscopy FINDINGS: Normal appearing airways. Fluid is blood-tinged on the right and yellowish orange on the left, not consistent with alveolar hemorrhage. Samples of right upper lobe anterior segment, BAL and lingular BAL were both pooled, approximately 60 cc total. TESTING: BAL was pooled and sent for bacterial, fungal, AFB, pneumocystis, viral cultures, as well as cytology and cell count with differential. Parimi,Loraine MD 12/26/16 1524 Limited ileoscopy with stoma balloon dilatation under fluoroscopy: ENDOSCOPIC DIAGNOSES: 1. Severe stomal stenosis. 2. 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 3. Successful stomal dilatation to 12 mm. RECOMMENDATIONS: 1. After again cleaning the skin, application of the ostomy bag is to be performed in the ICU. 2. Continue full liquid diet. 3. As long as there are no apparent hemorrhagic complications, I think it would be fine to continue the fondaparinux this evening. 4. Dr. Abbott is planning on placing the right IJ for central access this evening and once this is in position, TPN should immediately be Kirby Valdez MD 12/24/16 8515 . Assessment & Plan GASTROENTEROLOGY PROGRESS NOTE Ms. Terra Beauchamp is an extremely pleasant 31 year old woman that recently moved to the [facility] from the [facility] with a complex history of Crohn 's disease s/p total proctocolectomy with end ileostomy performed at [facility] in [place], [place]. She is on chronic glucocorticoids with Humira therapy, multiple prior obstructions/near obstructions near ostomy, recurrent flares, and recent left UE DVT secondary to PICC placement for TPN, who presented to the ED 12/18/2016 with acute on chronic diffuse abdominal pain, vomiting, and nausea. 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 - Adrenal insufficiency secondary to chronic steroid use - LUE DVT secondary to PICC placement, completed fondaparinux therapy - Severe protein/calorie malnutrition, BMI 15 on admission, s/p RIJ placement for TPN - CT showing chronic low-grade obstruction. However clinically she is passing gas and passing fecal material. - Abdominal pain; chronic. Likely secondary to chronic, low grade stenosis and po attempts for maximal intake to maintain nutrition Plan/Recommendations for 12/30/2016: - Diuresis per primary team to minimize fluid retention - Continue stress dose steroids and antimicrobials as appropriate per primary team - Monitor HH and stool output - OK to hold Humira for this due dose - HOLD tube feeds at this time- will re-assess daily - Holding secondary to increased distention and response to pain - Continue TPN; adjust/transition to least hepatotoxic formula - Low threshold for repeat abd XR Additional recs/info: - Remind patient and mother to provide [facility] records to [facility]/GI - Recommend continued PT evaluation - Has appt with Dr. Dominic Zaidi at on 12/31 Additional summary: Patient has history of noncompliance, and removed Dobhoff the day of previous discharge while she was on her way home. Dobhoff was also removed while she was going home after the admission prior to that. Nutrition is essential for her, as she likely requires a complete revision, but her nutritional status is too poor to promote adequate healing. Previous discussions have included SNF. She is not a PEG candidate, as it would likely be more detrimental than beneficial especially because of the poor nutritional status indicated by low albumin. This is have significant impact on wound healing. Tube feeds were anticipated to last at least three months. Due to the history of noncompliance with Dobhoff and need for surgical intervention, TPN is next best choice. This does not come without risk, as her previous TPN site led to a DVT. She is still receiving anticoagulation at this time. Risks of TPN explained to patient, and because her need for nutrition is becoming increasingly critical, it is pursued at this time. TPN carries significant risk of infection, especially with her history of immunosuppression secondary to intermediate accountant steroids and now Humira use. On 12/24, she was urgently taken to endoscopy for another dilation of stoma, and then transferred to CCU for continued care. She has remained in critical condition with decreased respiratory function requiring mechanical ventilatory support. Diuretics and O2 delivery methods ordered. Cardiology consulted as well, to evaluate EF 30-35, further review likely EF-25. Patient was briefly on dobutamine infusion, now discontinued. Suspected pathophysiology secondary to oncotic shifts that resulted in pulmonary flash edema after TPN infusion initiated. Diuresis continues. Again, at this time, deferring respiratory care and diuresis to primary team. Holding tube feeds secondary to increased distention and pain, err on caution to avoid worsening any suspected obstruction. Will let bowels rest at this time , and re-assess daily. No need for scheduled bowel regimen. Monitor output daily. We will re-assess daily and monitor for any need of re-dilatation of stoma. Total time: 40 minutes GI Prophylaxis: H2 luis carlos VTE Prophylaxis: SCDs VTE Mechanical Devices: Intermittant Pneumatic CD Resuscitation Status: CPR: Attempt Resuscitation Attending Statement Patient seen and examined. Agree with assessment and plan as described by Dr Arteaga. CXR remains with signs of fluid overload. Since discontinuation of lasix drip, potassium stabilized, but I/O's are again positive with weight gain. Remains on 35% FiO2. Explained to Terra the need to get stronger by way of TPN to pave the way to extubation. I suspect that she still needs further more aggressive diuresis. Since discontinuation of TF's, patient feels improved from abdomen standpoint. Soft to exam. Less distended. Still with minimal bowel tones to suggest an element of ileus. (but again, patient overall feels better today). For now, continue to hold TF's and continue TPN. Dobutamine support as per cardiology service. Hopefully, with ongoing supportive the stress induced cardiomyopathy can be allowed significant recovery. Continue stress dose steroid. Continue to hold Humira for now. Have low threshold to repeat abd imaging with plain films. If fall off in stoma output with increasing distension, repeat stoma dilatation would be indicated. Elissa Arteaga DO Dec 30, 2016 09:28 Kirby Valdez MD Dec 30, 2016 22:26
--- NOTE | 2016-12-30 13:52 | ABG ---
DateTimeAnalyzed 13:48:00 -_ pH ____7.478 - 7.350 7.450 pCO2 ___44.4__ -mmHg 35.0 45.0 pO2 ___79.3__ -mmHg 69.0 116 HCO3- ___32.5__ -mmol/L 22.0 26.0 ABE ____8.5__ -mmol/L -2.0 2.0 tHb ____7.9__ -g/dL O2Hb ___92.6__ -% COHb ____0.6__ -% MetHb ____2.1__ -% sO2 ___95.2__ -% FIO2 ___35.0__ -% Pressure_Support ____5.0__ -cmH2O PEEP ____5.0__ -cmH2O Vt __295.0__ -L Drawn By NB - Date/Time Notified____ 13:51:00 -_ Spontaneous_RR ___22.0__ -b/min Oxygen Device 1 VENTILATOR - Notified By nb - Notified Whom DR Parimi/ Dr Mcminn -_ B 761 -mmHg tO2 ___10.4__ -Vol% Daryl test N/A -
[2016-12-30] MEDS ORDERED: Furosemide 10 mg/mL 2 mL Inj IVPUSH ONE (14:25)
--- NOTE | 2016-12-30 15:54 | PATH ---
SURGICAL PATHOLOGY Attending Physician:Loraine Vo MD CASE STATUS: Signed Out PATIENT NAME: MAE FELIZ PID: [id number] : 1985 DATE COLLECTED:12/26/2016 00:00 SPECIMEN: Right Upper Lobe Bronchial Washings CLINICAL HISTORY: Right Upper Lobe Bronchial Washings ICD-10 code not given FINAL DIAGNOSIS: Right Upper Lobe Bronchial Washings: Alveolar macrophages, blood cells, and bronchial epithelium identified. No cytologic evidence of malignancy. NOTE: ICD10 CODE R91.8 GROSS DESCRIPTION: Received fresh on 12/29/2016 is approximately 75 cc of cloudy pink fluid. Prepared are one cell block and one ThinPrep slide. Vo MICRO DESCRIPTION: Examined are one ThinPrep cytology slide and one cell block slide. These show blood cells, alveolar macrophages, and rare bronchial epithelial cells. No atypical or malignant cells identified. ICD-9 CODES: CPT CODES: 1: 24477, 49359 Electronically Signed Out Estelle Xie MD Merged With [facility] [address], [place] [address] Technical component performed at [facility], [facility] [address], [place], [address]
[2016-12-30] MEDS: 0.9% Sodium Chloride 1,000 ML IV SCH (16:06)
--- NOTE | 2016-12-30 17:01 | PCM.PNMED ---
Subjective Date of Service Dec 30, 2016 Subjective Time of examination, patient remained intubated, mildly sedated, she was able to respond appropriately by shaking her head upwards and side to side in yes or no manner. She conveys that her abdomen is acid tender to palpation. Otherwise complete ROS unable to be obtained due to patient's endotracheal tube and light sedated state. Exam Vital Signs Vital Sign - Last Date Time Temp Pulse Resp B/P Pulse Ox O2 Delivery O2 Flow Rate FiO2 12/30/16 16:30 Supplement Oxygen 12/30/16 16:30 36.8 122 24 107/74 97 3.00 12/30/16 15:12 35 Intake and Output 12/29/16 12/29/16 12/30/16 Cumulative From/Thru 15:00 23:00 07:00 12/18/16 14:54 - 12/30/16 06:30 Intake Total 1350 ml 1430 ml 35193 ml Output Total 250 ml 680 ml 02100 ml Balance 1100 ml 750 ml 7463 ml Intake Oral 8710 ml IV Total 859 ml 893 ml 06568 ml Tube Feeding 482 ml TPN/PPN 491 ml 537 ml 3994 ml Packed Cells 300 ml Tube Irrigant 770 ml Output Urine Total 150 ml 300 ml 14810 ml Stool Total 330 ml 95007 ml Urine/Stool Mix 700 ml Gastric Drainage Total 100 ml 50 ml 425 ml # Voids 1 Exam General: Cachectic woman, intubated with mild sedation in the ICU. HEENT: Orogastric & endotracheal tubes inserted through oropharynx, blood around the mouth. Unable to evaluate oropharynx completely but no oral thrush appreciated. Mucous membranes dry. Neck: Central venous catheter right internal jugular. No JVD appreciated. Chest & Lungs: Improved coarse breath sounds today, no wheeze appreciated. Cardiovascular: RRR, no murmurs noted Pulses: Decreased radial pulses bilaterally, dorsalis pedis present and equivalent bilaterally. Abdomen: Non-distended but feels more 'full' than previous days, soft, nontender, ileostomy in place, stoma free of erythema and leakage, scattered echymosis and scarring over her abdomen. Extremities: Cool. trace edema to BL LE. Compression stockings in place. Skin: Dry cracking skin diffusely on back and extremities, early pressure ulcer changes on sacrum and iliac. Abrasions to back and legs Taylor catheter in place Neuro: nods head to answer some questions, able to follow few commands. IVs and Medications Medications Reviewed: Medications were reviewed in detail Lab and Diagnostics Arterial blood gas performed 12/31/2015 8:29 AM PH 7.5 PCO2 41.6 PaO2 83.2 HCO3 32.3 FiO2 35% Set rate of 10 breaths per minute Arterial blood gas performed 12/22/2016 1:48 PM PH 7.478 PCO2 44.4 PO2 79.3 HCO3 32.5 FiO2 35% Post breathing trial, 22 respiratory per minute Result Diagram: 12/30/16 0415 12/30/16 0415 Microbiology Stool PCR negative. Urine culture grew mixed urogenital floor. MRSA screen negative. BAL respiratory viral PCR negative. BAL Legionella, acid-fast bacillus, PCP, CMV all pending. Blood culture 2 has no growth after 2 days. Blood fungal culture 2 pending. . X-Rays, CTs and MRIs Chest x-ray performed 12/29/2016 IMPRESSION: Pulmonary edema and/or diffuse bilateral pneumonia not significantly changed. ARDS cannot be excluded. Dictated by: Jimmy ESCALANTE Interpreted: More Woodard MD on 12/30/2016 at 10:27 Chest X-ray performed 12/29/16 IMPRESSION: Pulmonary edema and/or diffuse bilateral pneumonia not significant changed. ARDS cannot be excluded. Dictated by: Jimmy ESCALANTE Interpreted: Keeley Bethea MD on 12/29/2016 at 8:58 Portable chest x-ray performed 12/27/2016 IMPRESSION: 1. Persistent bilateral airspace consolidation with a perihilar predominance as well as left retrocardiac consolidation. Findings most likely represent pneumonia including from atypical etiologies. 2. Persistent bilateral pleural effusions. Chest CT without contrast performed 12/26/2016 IMPRESSION: 1. Severe bilateral pneumonia. 2. Small bilateral pleural effusions. 3. Opacification of the right lower lobe bronchus, consistent with mucous plugging. 4. Small amount of ascites. 5. Severe abdominal subcutaneous edema. 6. Findings discussed with Dr. Brandt on 12.26.16 at 1439 hrs. Dictated by: Calvin Bonds M.D. on 12/26/2016 at 14:[address] without contrast performed 12/26/2016 IMPRESSION: 1. No acute intracranial abnormality. Dictated by: Chris Heredia M.D. on 12/26/2016 at 8:25 CT ABDOMEN AND PELVIS WITHOUT CONTRAST IMPRESSION: 1. Free air is not identified. 2. Markedly distended colon suggesting distal colonic obstruction. Rectal tube may be of benefit. 3. Question of low-density stones versus particles of air in the gallbladder. Ultrasound is suggested. ADDENDUM: Additional information is that the patient has had a colectomy. The distended loops therefore must be small bowel. In addition there is an ileostomy rather an ileal loop into the right lower quadrant. In the operative from this is reportedly fairly good. This would indicate that C. dilated small bowel loops are related to a chronic low-grade obstruction or a relatively acute high-grade obstruction. No wall thickening or air in the tsai of the dilated loops is seen. Since the patient does not have obstructive symptoms clinically this is likely to be a distended loops from chronic partial low grade obstruction of a small bowel loop. Dictated by: Esteabn Cabrera M.D. on 12/18/2016 at 18:44 US ABDOMEN, LIMITED IMPRESSION: Multiple stones in the gallbladder but no free air or changes to indicate acute cholecystitis. Dictated by: Esteban Cabrera M.D. on 12/18/2016 at 19:49 X-RAY ACUTE ABDOMINAL SERIES IMPRESSION: Changes are consistent with partial or early small bowel obstruction. Dictated by: Esteban Cabrera M.D. on 12/18/2016 at 20:37 Cardiac Echo Impressions Echocardiogram Interpretation Summary: The left ventricle is normal in size. The ejection fraction is estimated to be 30-35%. Except basal LV segments and apical segments which have preserved or slightly increased contractility, rest all the mid LV segments are severey hypokinetic to akinetic. This pattern favors atypical stress induced cardiomyopathy. The right ventricle is normal size.Right ventricular systolic function is at the lower limits of normal. There is moderate mitral regurgitation. There is mild to moderate tricuspid regurgitation. Right ventricular systolic pressure is estimated to be 25 mmHg plus the clinically estimated CVP which cannot be estimated on this exam. There are small-sized bilateral pleural effusions noted. The patient was in sinus bradycardia with heart rates between 57-58 bpm during the exam. . Additional Diagnostics Bronchoscopy FINDINGS: Normal appearing airways. Fluid is blood-tinged on the right and yellowish orange on the left, not consistent with alveolar hemorrhage. Samples of right upper lobe anterior segment, BAL and lingular BAL were both pooled, approximately 60 cc total. TESTING: BAL was pooled and sent for bacterial, fungal, AFB, pneumocystis, viral cultures, as well as cytology and cell count with differential. Loraine Vo MD 12/26/16 1524 Limited ileoscopy with stoma balloon dilatation under fluoroscopy: ENDOSCOPIC DIAGNOSES: 1. Severe stomal stenosis. 2. 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 3. Successful stomal dilatation to 12 mm. RECOMMENDATIONS: 1. After again cleaning the skin, application of the ostomy bag is to be performed in the ICU. 2. Continue full liquid diet. 3. As long as there are no apparent hemorrhagic complications, I think it would be fine to continue the fondaparinux this evening. 4. Dr. Abbott is planning on placing the right IJ for central access this evening and once this is in position, TPN should immediately be Kirby Valdez MD 12/24/16 3481 . Assessment & Plan Terra Beauchamp is an 31 year old woman that recently moved to the [facility] from the [facility] with a complex history of Crohn's disease s/p total proctocolectomy with end ileostomy performed at [facility] in [place], [place]. She is on chronic glucocorticoids with Humira therapy, multiple prior obstructions/near obstructions near ostomy, recurrent flares, and recent left UE DVT secondary to PICC placement for TPN, who presented to the ED 2016 with acute on chronic diffuse abdominal pain, vomiting, and nausea. on hospital day 7 patient developed acute hypoxic respiratory failure and was transferred to the ICU. Hospital day 13 ICU, day 7 Ventilator day 5 Antibiotics/Antifungal day 5 1. Acute hypoxemic respiratory failure, not present on admission. Stable - Most likely due to fluid overload evidenced on x-ray has diffuse edema however , ARDS with capillary leak, fungal or atypical infection, cardiac etiology, and refeeding syndrome are differentials. (x-ray images reviewed) - Plan for spontaneous breathing trial today. - Cardiac etiology :Echocardiogram: Ejection fraction 25-30%, stress-induced cardiomyopathy, cardiac cachexia. - Infectious etiology: Chest CT without contrast demonstrated Severe bilateral pneumonia, small bilateral pleural effusions, opacifications consistent with mucous plugging, STOP Zosyn and continue Bactrim 1 pill a day for prophylaxis while holding Humira per Infectious Disease Bronchoscopy completed, no gross abnormalities. Serologies remain negative. Awaiting cytology results. Fungal blood cultures 2 Pending Fungal Antibodies = Elevated. May be false positive secondary to Zosyn. Continue Cresemba per ID. Histo urine antigen negative. HIV screen = negative - Renal Etiology - Urine protein negative, - Autoimmune panel negative - Infectious disease, cardiology, critical care pulmonology, general surgery, and gastroenterology following in consultation on the case. We appreciate their time, evaluation, and recommendations. - Will monitor I&O's closely. 2. Acute systolic congestive heart failure, not present on admission, management ongoing. - Echocardiogram reevaluation by Dr. Yeung stated ejection fraction 25-30%, stress- induced cardiomyopathy, and cardiac cachexia. - Continue dobutamine drip - Continue gentle diuresis with furosemide 20 mg IV daily. - Cardiology is consulting, we appreciate their evaluation, and recommendations regarding the case. 3. Crohn's disease with RLQ high output Ileostomy with severe protein/calorie malnutrition, present on admission - Continue prednisone, hold Humira. 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 - Patient not a PEG tube candidate per GI but cassandra consultant believe this would be preferable option. - She has previously been noncompliant with Dobhoff due to discomfort and anxiety. - Tube feeds discontinued per gastroenterology recs. - TPN for a total of 110-120% daily caloric requirements. Additional micronutrients added. -Gen. surgery has discussed the possibility of a Groshong catheter for long- term TPN with patient's mother, no decision made yet. 4. Acute hypokalemia, not present on admission, Improved. - Has returned to normal levels with the discontinuation of IV drip continuous furosemide. - Continue to monitor with BMP and replete as needed. 5. Acute aspiration, not present on admission, not active - Patient was receiving oral food, she began to cough and it was perceived that she was aspirating. - Infectious disease was notified, patient restarted on Zosyn IV, she has completed 3 days. STOPPED Zosyn today. - Will plan for speech therapy to evaluate the patient post-extubation. 6. Thrombocytopenia, acute, not present on admission. Improved. - Concern for HIT. - She continues on a stress dose of hydrocortisone decreased from 100 mg every 8 hours on 12/26/16 to 50mg every 8 hours on 12/26/16 - Heparin Antibodies - 0.070 within normal limits - Fondaparinux has been discontinued. She has completed 2 full months of treatment. 7. Acute anemia, not present on admission, Stable - Most likely dilutional due to the numerous liters of fluid she has received - 2 units of packed red blood cells were transfused, this in conjunction with diuresis has brought her hemoglobin to greater than 10. (12/25/16) - Continue to monitor CBC. 8. Fever, acute - resolved. - Patient remains on Zosyn (day 3). -Infectious disease continues to consult and we appreciate Dr. Bynum's expertise. 9. Hypovolemic hyponatremia, chronic, present on admission - resolved. - Patient's volume status has been repleted, sodium has returned to normal levels. - Continue to monitor BMP. 10. Abdominal pain in the setting of Crohn's disease s/p total proctocolectomy with RLQ ileostomy, acute, present on admission - Likely due to strictures and obstruction. - More difficult to assess while intubated and sedated. - Continue to monitor. Patient tolerating tube feeding so far. 11. Early or partial small bowel obstruction, acute, present on admission - Most recent abdominal imaging shows evidence of developing small bowel obstruction and other strictures. She is still having high ostomy output, although mostly just liquids. Status post stomal dilation December 24 - GI consulted, will continue to follow, appreciate time and input. - Surgery consulted and following. Appreciate time and input. - Patient receiving TPN and tolerating this so far. 12. Hypochromic microcytic anemia, likely iron deficiency, chronic, present on admission - Due to poor oral intake and poor nutritional status - Consider iron supplementation as outpatient - Continue to monitor CBC. 13. Anxiety and Depression, POA - Patient's anxiety and depression are related to significant chronic disease condition, but creating significant morbidity none the less. - Continue lorazepam 0.5 mg IV push PRN. 14. Likely Oral Candidiasis, acute - Secondary to Prednisone usage and - Continue to monitor closely. - Nystatin being given PO BID. - Antiemetic available PRN. Disposition: Anticipate several more days in the CCU due to low blood pressures necessitating pharmacologic IV support. Hospital course difficult to anticipate , may require transfer to tertiary receiving facility. CODE STATUS currently DO NOT RESUSCITATE, as patient appears to be doing well and may be able to come off the ventilator, this is a discussion which may be revisited inclusion of the patient. Case was discussed with critical care (Dr. Shona Vo) and cardiology (Dr. Carey) GI Prophylaxis: H2 luis carlos VTE Prophylaxis: Sub-Q Heparin (Unfractionated) VTE Mechanical Devices: Intermittant Pneumatic CD Resuscitation Status: DNR/DNI:Do Not Resuscitate/Intubate Time spent greater than 35min Attending Statement The patient was seen and examined together with Dr. Meza on 12/30/16 and I have added additional information to the note above. Humberto Meza DO Dec 30, 2016 17:01 Trena Lauren DO Dec 31, 2016 12:40
[2016-12-30] MEDS: Total Parenteral Nutrition 1 BAG IV SCH (21:06)
[2016-12-31] VITALS (14 sets, daily range): BP systolic 108–121; BP diastolic 75–95; PULSE 83–128; RESP 22–40; O2SAT 92–100
[2016-12-31] MEDS: Chlorhexidine 0.12% 15 mL Oral Solution MT SCH ×2 (00:28→04:30)
[2016-12-31] MEDS: Albumin 25% 25 GM in IV Premix 1 EACH IV SCH ×2 (00:28→08:13)
[2016-12-31] MEDS: Heparin 5,000 Unit/mL Inj SUBQ SCH ×3 (00:28→16:45)
[2016-12-31] MEDS: Hydrocortisone 50 mg/mL 2 mL Inj IVPUSH SCH ×3 (00:28→16:45)
[2016-12-31] MEDS: HYDROmorphone 1 mg/mL Inj IVPUSH PRN ×2 (01:09→05:22)
[2016-12-31 05:20] LABS: Mean Corpuscular Hemoglobin 24.9 pg (27.0-35.0); Mean Corpuscular Volume 83.7 fL (81-100)
[2016-12-31 05:41] LABS: Magnesium 2.3 mg/dL (1.6-2.6); Phosphorus 3.1 mg/dL (2.5-4.9)
--- NOTE | 2016-12-31 05:59 | ABG ---
DateTimeAnalyzed 05:56:00 -_ pH ____7.494 - 7.350 7.450 pCO2 ___42.4__ -mmHg 35.0 45.0 pO2 ___66.6__ -mmHg 69.0 116 HCO3- ___32.3__ -mmol/L 22.0 26.0 ABE ____8.5__ -mmol/L -2.0 2.0 tHb ____7.2__ -g/dL O2Hb ___91.0__ -% COHb ____0.7__ -% MetHb ____1.9__ -% sO2 ___93.4__ -% FIO2 ___37.0__ -% Drawn By MK - Date/Time Notified____ 05:58:00 -_ Liter_Flow ____5.0__ -L/min Oxygen Device 1 __CANNULA - Notified By MK - B 754 -mmHg tO2 ____9.3__ -Vol% Daryl test _Positive -
[2016-12-31] MEDS: Furosemide 10 mg/mL 2 mL Inj IVPUSH SCH (08:02)
[2016-12-31] MEDS: Nystatin 100,000 Unit/mL 5 mL Suspension PO SCH ×2 (08:13→20:27)
[2016-12-31] MEDS: Famotidine Inj 20 MG in IV Premix 1 EACH IV SCH ×2 (08:13→20:27)
[2016-12-31] MEDS ORDERED: Trimethoprim-Sulfa 160 mg-800 mg Tablet PO SCH (08:30)
--- NOTE | 2016-12-31 08:32 | PROG NOTE ---
[address] [address] PROGRESS NOTE PATIENT: MAE FELIZ : 1985 MR#: [id number] ADMIT: 12/18/2016 JOB ID: [id number] DATE: 12/31/2016 INFECTIOUS DISEASE FOLLOW UP NOTE: REASON FOR FOLLOWUP: Pulmonary edema and high risk for nosocomial infection. INTERVAL HISTORY: In the past 24 hours, the patient has been extubated. This has not gone entirely well as this morning the patient reports increasing shortness of breath which she feels is not sustainable. She notes that she has no fevers or chills but she does have just increasing respiratory difficulty which has steadily worsened since extubation. Her abdominal pain is about at baseline and certainly no worse. She denies any significant productive sputum, denies any productive cough. PHYSICAL EXAMINATION: Reveals a consistently afebrile woman, temperature 36.9 at this point. Pulse approximately 90, though was higher during the night when she was on dobutamine. That has now been stopped. Respiratory rate is currently 36-40, blood pressure 111/87. She is not on vasopressor agents. She is on nasal oxygen and saturating fairly well but obviously working extremely hard to do so. The patient's mental status seems clear though she is obviously anxious. Oral cavity: Dry mucous membranes. Lungs with bilateral rales. Cardiac tones: Tachycardia without significant murmur. The abdomen is mildly tender in a diffuse way but perhaps less so than it has been on prior days. The ileostomy is functioning. Taylor catheter present. Urine output is reasonable. No skin rash noted. LABORATORIES: Include a white count of 7000, platelets up to 126. Creatinine less than 0.3. AST has gone from 34 to 102, ALT has gone from 18-76, alk phos has actually normalized at 172 previously, now 121. Albumin 4.1. The HIV is negative. Urine histo has come back negative. Fungitell mildly elevated but again she was receiving Zosyn at the time. Review of the micro includes a MRSA screen which is negative. Multiplex viral PCR on the bronch wash was negative. Pneumocystis pending after five days on the bronch wash that was done on the . The blood cultures on the likewise negative. IMAGING: Was carefully reviewed on the computer. Yesterday's chest x-ray showed bilateral infiltrates in a pattern consistent with pulmonary edema or ARDS. Today's is much worse with increasing bilateral infiltrates. IMPRESSION: I see no evidence for ongoing infection in this patient but clearly her respiratory status is much worse. This would appear to be on the basis of increasing pulmonary edema which may be related to her cardiac cachexia and/or some component of ARDS. I do not see any evidence that this is an infection involving the lungs. The only interesting piece of the puzzle we still miss is our Pneumocystis smear from the bronch five days ago and hopefully this will be returned in the near future. Nonetheless, I do not think the patient has Pneumocystis pneumonia. We have her actually on prophylaxis for it with 1 Bactrim once a day. RECOMMENDATIONS: 1. This case was discussed in detail at the bedside with the ICU nurse. 2. Will be discussing the case later with the ICU team. 3. Repeat procalcitonin and LDH will be added to this morning's labs. 4. We await the additional studies from the bronch wash, but at this point, I see no indication for additional antibiotics or Infectious Disease diagnostics.
--- NOTE | 2016-12-31 09:14 | DRSVH ---
PROCEDURE: X-RAY CHEST ONE VIEW, PORTABLE ([id number]) INDICATIONS: INC SHORT OF BREATH/INC OXYGEN NEED TECHNIQUE: One view of the chest was acquired. COMPARISON: [facility], CR, XR CHEST 1VW (PORTABLE), 12/30/2016, 5:08. FINDINGS: Surgical changes and devices: Stable positioning of right IJ CVL. Lungs and pleura: Worsening bilateral widespread pulmonary air space opacities. Small effusions. No pneumothorax. Mediastinum: Mediastinal contours appear normal. Heart size is normal. Bones and chest wall: No suspicious bony lesions. Overlying soft tissues appear unremarkable. IMPRESSION: Worsening pulmonary edema versus diffuse bilateral inflammatory process. ARDS cannot be excluded. Dictated by: Jimmy Eubanks RRA Interpreted: Keeley Bethea MD on 12/31/2016 at 9:13 Transcribed by: LAUREN on 12/31/2016 at 9:14 Approved by: Keeley Bethea MD, PhD on 12/31/2016 at 16:41
[2016-12-31] MEDS: Furosemide 5 mg/Hr Drip IV SCH ×4 (09:41→22:15)
[2016-12-31] MEDS: HYDROmorphone 0.5 mg/0.5 mL iSecure Syringe IVPUSH PRN ×4 (10:36→22:17)
--- NOTE | 2016-12-31 10:48 | PROG NOTE ---
[address] [address] PROGRESS NOTE PATIENT: MAE FELIZ : 1985 MR#: [id number] ADMIT: 12/18/2016 JOB ID: [id number] DATE: 12/31/2016 PULMONARY CRITICAL CARE PROGRESS NOTE: The patient is a 31-year-old woman with severe Crohn disease status post colectomy with stomal stenosis of ileostomy, severe protein calorie malnutrition admitted to the ICU with ARDS and acute respiratory failure as well as cardiomyopathy. The patient was seen and evaluated with resident physician, Dania Brandt. Please refer to her separate detailed note for additional information. INTERVAL HISTORY: She was extubated yesterday afternoon after a prolonged spontaneous breathing trial on which she did very well. However, overnight she has had increasing respiratory distress and currently is quite hypoxic, on 5 L nasal cannula and less responsive. REVIEW OF SYSTEMS: Unable to obtain because of the patient's mentation. PHYSICAL EXAMINATION: Vital signs reviewed. Sats are 92% on 5 L nasal cannula. Respiratory rate is 37. She is afebrile. General: A thin, cachectic woman with cushingoid facies. She is tachypneic at rest. Chest: Bilateral coarse rhonchi. Extremities: No cyanosis, clubbing or edema. LABORATORIES: Reviewed. WBC 7. Chemistry also reviewed and within normal limits. Procalcitonin 0.08. Culture data from BAL no growth to date on all BAL results. Viral, AFB, fungal, bacterial cultures are all negative. The only pending studies are CMV and Pneumocystis. Cytology on the BAL shows no abnormalities and no evidence of malignancy. Chest x-ray today compared to yesterday shows dramatic worsening of bilateral dense hilar predominant infiltrates and dense left lower lobe consolidation. Arterial blood gas from this morning shows pH of 7.49, pCO2 of 42, pO2 of 66 and bicarbonate of 32. ASSESSMENT AND RECOMMENDATIONS: 1. Acute hypoxic respiratory failure. 2. Acute respiratory distress syndrome. 3. Takotsubo cardiomyopathy with EF 30%. 4. Severe protein calorie malnutrition. 5. Crohn disease on immunosuppression with Humira and steroids. 6. Upper extremity PICC associated deep venous thrombophlebitis status post two months of fondaparinux. 7. Thrombocytopenia-improving. 8. Severe hypoalbuminemia. This unfortunate 31-year-old with severe Crohn disease status post colectomy on chronic immunosuppression with Humira and steroids has had problems with stomal stenosis with her ileostomy. She has been in the ICU with ARDS and respiratory failure for which she was intubated on December 26 and extubated yesterday after she did extremely well on her spontaneous breathing trial. Her chest x-ray yesterday also showed dramatic improvement. However, she has worsened overnight and her x-ray looks back to the way it did four days ago when she initially presented with respiratory distress. Frankly I am a little bit at a loss. BAL results are ruling out infectious etiology. While this could be cardiogenic pulmonary edema, it is really not acting like that, completely explains all of the pulmonary abnormalities. This seems to be a combination of ARDS and cardiogenic pulmonary edema at least based on physiology and how she responded to treatment. We are considering the possibility that albumin and the TPN are somehow making her capillary leak process worse. Alternatively we may be dealing with an unusual infections such as CMV so I added as CMV serum PCR on top of the BAL test that is still pending. We restarted her Lasix drip. Also of note yesterday with the multiple doses of Lasix given, she has good urine output through the Taylor but also had a large amount of output through her ileostomy which has us worried about the possibility of a fistula between the bladder and bowel. We asked the lab if they could run BUN and creatinine on the ileostomy output but they said the stool samples could not be run in the urine machine. At this point I think this diagnosis will have to wait because the respiratory issues are becoming more emergent and I am going to start with trying BiPAP, but if she fails BiPAP, then probably she will need to be reintubated later today. We also restarted Lasix drip, stopped her albumin. Will speak to GI and surgery about how best to further workup the possibility of a fistula with her bladder. I spoke to mom at the bedside today about her decision to make the patient DNR. It appears all she was thinking of was how CPR would hurt her if she got CPR. I explained to mom that while CPR may hurt, if she were to have a cardiac arrest it would be the only thing that saves her life. Mom admitted she did not really think about it like that and was only thinking about fractured ribs. She also indicated the patient has never expressed any desire not to live or any sense that the patient has had a poor enough quality of life that she is tired of fighting this disease. The patient has a 4-year-old daughter that she brought up and she said she definitely wants to get better and go back and see her daughter so she still wants everything possible done to give her the best chance of leaving the hospital. Based on this discussion, we decided to make her a FULL CODE again, especially because with the current instability I would feel uncomfortable having her reintubated with restrictions on CPR. CRITICAL CARE TIME: 60 minutes.
[2016-12-31] MEDS: Ipratropium 0.02% 0.5 mg/2.5 mL Inhalation Solution NEB SCH ×3 (11:19→21:09)
[2016-12-31] MEDS: DOBUTamine 500 mg/250 mL D5W IV SCH (11:56)
--- NOTE | 2016-12-31 11:56 | PCM.PNMED ---
Subjective Date of Service Dec 31, 2016 Subjective Intensive/Pulmonology Progress Note: Attending Dr. Gilda Ellison Quynh is a 31-year-old female with a complex past medical history significant for Crohn's disease status post total proctocolectomy with end ileostomy performed at [facility] in [place], [place]. She is on chronic glucocorticoids and Humira, with multiple prior obstructions and near obstructions, recurrent flares, and recent left UE DVT secondary to PICC placement for TPN, who presented to Emergency Department on 12/18/2016 with generalized abdominal pain, worse in the LLQ, associated with nausea and vomiting likely secondary to chronic partial low-grade small bowel obstruction from stenotic stoma who later in her hospitalization developed acute hypoxemic respiratory failure now status post requiring intubation x 5 days now extubated. Hospital day #14. Overnight: There were no acute events. Telemetry overnight: Sinus rhythm, heart rate 80 to 90's, with runs of sinus tachycardia up to 140's with activity. Subjective exam and review of systems is limited due to patients laryngitis and tachypnea. She is in mild distress due to difficulty with breathing. She continues to report abdominal pain but reports it is tolerable at the moment. She believes her breathing is somewhat easier than prior to intubation but appears very dyspneic and again in mild distress. Her chest xray acutely worsened overnight and demonstrates bilateral widespread pulmonary air space opacities L>R. We plan to place her on BiPAP instead of nasal canula to engine house helper her breathing and avoid re-intubation if possible. . Exam Vital Signs Vital Sign - Last Date Time Temp Pulse Resp B/P Pulse Ox O2 Delivery O2 Flow Rate FiO2 12/31/16 09:00 118 36 93 45 12/31/16 07:39 37.1 108/80 Nasal Cannula 5.00 Intake and Output 12/30/16 12/30/16 12/31/16 Cumulative From/Thru 15:00 23:00 07:00 12/18/16 14:54 - 12/31/16 06:16 Intake Total 661 ml 1066 ml 94568 ml Output Total 2475 ml 2350 ml 08003 ml Balance -1814 ml -1284 ml 4365 ml Intake Oral 8710 ml IV Total 661 ml 562 ml 28589 ml Tube Feeding 482 ml TPN/PPN 504 ml 4498 ml Packed Cells 300 ml Tube Irrigant 770 ml Output Urine Total 725 ml 250 ml 11570 ml Stool Total 1750 ml 1750 ml 94847 ml Urine/Stool Mix 700 ml Gastric Drainage Total 350 ml 775 ml # Voids 1 Exam General: Cachetic young female in mild acute distress HEENT: Normocephalic, atraumatic. External ears without defect. Pupils equal, round, and reactive to light. Anicteric sclerae, moist conjunctivae, and no lid lag. Cushingoid facies. Neck: No lymphadenopathy or thyromegaly. Cardiovascular: Regular rhythm, tachycardic, without murmurs, rubs, or gallops appreciated. Pulmonary: Diffuse bronchial breath sounds throughout anterior lung castillo, worsening. No crackles or wheezes. Abdomen: Soft, scaphoid, diffuse tenderness to palpation, nondistended, ostomy in place in mid abdomen with black liquid stool, no hematochezia or melena. Extremities: Bilateral +2 pitting edema to ankles bilaterally. No clubbing or cyanosis. Skin: Normal temperature, turgor, and texture; no rash, ulcers, or subcutaneous nodules appreciated. Neurological: Alert, mild distress, hoarse. ABG: PH 7.494. PCO2 42.4. PO2 66.6. HCO3 32.3. On FiO2 of 37% via nasal cannula. . IVs and Medications Medications Reviewed: Medications were reviewed in detail Lab and Diagnostics Item Value Date Time Calcium Level 8.9 mg/dL 12/31/16513 Phosphorus Level 3.1 mg/dL 12/31/16513 Magnesium Level 2.3 mg/dL 12/31/16513 Total Bilirubin 0.8 mg/dL 12/31/16513 Aspartate Amino Transf (AST/SGOT) 102 U/L H 12/31/16513 Alanine Aminotransferase (ALT/SGPT) 76 U/L H 12/31/16513 Alkaline Phosphatase 121 U/L 12/31/16513 Lactate Dehydrogenase 288 U/L H 12/31/16513 Total Protein 5.9 g/dL L 12/31/16513 Albumin 4.1 g/dL 12/31/16513 Result Diagram: 12/31/1651312/31/16513 Microbiology Stool PCR negative. Urine culture grew mixed urogenital floor. MRSA screen negative. BAL respiratory viral PCR negative. BAL Legionella, acid-fast bacillus, PCP, CMV all pending. Blood culture 2 has no growth after 5 days. Blood fungal culture 2 negative to date. . X-Rays, CTs and MRIs X-RAY CHEST ONE VIEW, PORTABLE IMPRESSION: Pulmonary edema and/or diffuse bilateral pneumonia not significantly changed. ARDS cannot be excluded. Dictated by: Jimmy Eubanks RRA Interpreted: More Woodard MD on 12/30/2016 at 10:27 CT CHEST WITHOUT CONTRAST IMPRESSION: 1. Severe bilateral pneumonia. 2. Small bilateral pleural effusions. 3. Opacification of the right lower lobe bronchus, consistent with mucous plugging. 4. Small amount of ascites. 5. Severe abdominal subcutaneous edema. 6. Findings discussed with Dr. Brandt on 12.26.16 at 1439 hrs. Dictated by: Calvin Bonds M.D. on 12/26/2016 at 14:27 CT BRAIN WITHOUT CONTRAST IMPRESSION: 1. No acute intracranial abnormality. Dictated by: Chris Heredia M.D. on 12/26/2016 at 8:25 CT ABDOMEN AND PELVIS WITHOUT CONTRAST IMPRESSION: 1. Suboptimal examination due to lack of oral and intravenous contrast. 2. There is total colectomy and right lower quadrant ileostomy. Mild concentric thickening of a short segment of small bowel loop is noted in the right lower quadrant. There is decreased overall small bowel distention compared to 2016. 3. A small amount of free peritoneal fluid, which is new. 4. Small bilateral pleural effusions with bibasilar consolidation or atelectasis. Cannot rule out bibasilar pneumonia. 5. Diffuse body wall edema and subcutaneous fluid collection with pockets of subcutaneous gas. Cannot rule out postoperative wound infection. 6. There is mesenteric and retroperitoneal lymphadenopathy, which is nonspecific. The result was discussed with Dr. Valdez on 12/24/2016 at 1405 hours. Dictated by: More Woodard M.D. on 12/24/2016 at 13:01 US VENOUS ARM DUPLEX UNILATERAL, LEFT IMPRESSION: 1. The basilic vein is not identified otherwise no definite venous thrombosis seen. Dictated by: Jimmy Eubanks RRA Interpreted: Dominic Joyce MD on 12/23/2016 at 17 :07 US ABDOMEN, LIMITED IMPRESSION: Multiple stones in the gallbladder but no free air or changes to indicate acute cholecystitis. Dictated by: Esteban Cabrera M.D. on 12/18/2016 at 19:49 X-RAY ACUTE ABDOMINAL SERIES IMPRESSION: Changes are consistent with partial or early small bowel obstruction. Dictated by: Esteban Cabrera M.D. on 12/18/2016 at 20:37 CT ABDOMEN AND PELVIS WITHOUT CONTRAST IMPRESSION: 1. Free air is not identified. 2. Markedly distended colon suggesting distal colonic obstruction. Rectal tube may be of benefit. 3. Question of low-density stones versus particles of air in the gallbladder. Ultrasound is suggested. ADDENDUM: Additional information is that the patient has had a colectomy. The distended loops therefore must be small bowel. In addition there is an ileostomy rather an ileal loop into the right lower quadrant. In the operative from this is reportedly fairly good. This would indicate that C. dilated small bowel loops are related to a chronic low-grade obstruction or a relatively acute high-grade obstruction. No wall thickening or air in the tsai of the dilated loops is seen. Since the patient does not have obstructive symptoms clinically this is likely to be a distended loops from chronic partial low grade obstruction of a small bowel loop. Dictated by: Esteban Cabrera M.D. on 12/18/2016 at 18:44 . Cardiac Echo Impressions Echocardiogram Interpretation Summary: The left ventricle is normal in size. The ejection fraction is estimated to be 30-35%. Except basal LV segments and apical segments which have preserved or slightly increased contractility, rest all the mid LV segments are severey hypokinetic to akinetic. This pattern favors atypical stress induced cardiomyopathy. The right ventricle is normal size.Right ventricular systolic function is at the lower limits of normal. There is moderate mitral regurgitation. There is mild to moderate tricuspid regurgitation. Right ventricular systolic pressure is estimated to be 25 mmHg plus the clinically estimated CVP which cannot be estimated on this exam. There are small-sized bilateral pleural effusions noted. The patient was in sinus bradycardia with heart rates between 57-58 bpm during the exam. . Additional Diagnostics Bronchoscopy FINDINGS: Normal appearing airways. Fluid is blood-tinged on the right and yellowish orange on the left, not consistent with alveolar hemorrhage. Samples of right upper lobe anterior segment, BAL and lingular BAL were both pooled, approximately 60 cc total. TESTING: BAL was pooled and sent for bacterial, fungal, AFB, pneumocystis, viral cultures, as well as cytology and cell count with differential. Loraine Vo MD 12/26/16 1524 Limited ileoscopy with stoma balloon dilatation under fluoroscopy: ENDOSCOPIC DIAGNOSES: 1. Severe stomal stenosis. 2. 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 3. Successful stomal dilatation to 12 mm. RECOMMENDATIONS: 1. After again cleaning the skin, application of the ostomy bag is to be performed in the ICU. 2. Continue full liquid diet. 3. As long as there are no apparent hemorrhagic complications, I think it would be fine to continue the fondaparinux this evening. 4. Dr. Abbott is planning on placing the right IJ for central access this evening and once this is in position, TPN should immediately be Kirby Valdez MD 12/24/16 0626 . Assessment & Plan Terra Beauchamp is a 31-year-old female with a complex past medical history significant for Crohn's disease status post total proctocolectomy with end ileostomy performed at [facility] in [place], [place]. She is on chronic glucocorticoids and Humira, with multiple prior obstructions and near obstructions, recurrent flares, and recent left UE DVT secondary to PICC placement for TPN, who presented to Emergency Department on 12/18/2016 with generalized abdominal pain, worse in the LLQ, associated with nausea and vomiting likely secondary to chronic partial low-grade small bowel obstruction from stenotic stoma who later in her hospitalization developed acute hypoxemic respiratory failure now status post requiring intubation x 5 days now extubated. Hospital day #14. 1. Acute hypoxemic respiratory failure, not present on admission. Active. - The patient became increasingly dyspneic and hypoxemic requiring intubation x 5 days now extubated. - Likely multifactorial and secondary to ARDS from TPN administration and capillary leak from increased albumin with some contribution from cardiogenic pulmonary edema from newly diagnosed stress cardiomyopathy. - Chest x-ray revealed slightly pulmonary edema. - CT chest without contrast revealed severe bilateral pneumonia and right bronchus opacification consistent with mucus plugging, as above. - Echocardiogram revealed stress induced cardiomyopathy with an EF of 30%-35%, as above. - Discontinued diuresis with Lasix gtt as patient had good diuretic response and was volume overloaded with net +11L now down to 5.6L. Dobutamine was used for blood pressure support during diuresis but continuing for stress induced cardiomyopathy. - BAL performed revealed normal appearing airways, as above. BAL respiratory viral PCR negative. BAL legionella and acid-fast bacillus negative. BAL PCP and CMV pending, as above. - Fungal blood cultures negative to date, as above. - Ordered serum CMV PCR. - Ordered speech eval to assess for aspiration but is unobtainable due to patients dyspnea and breathing status. - Continue ventilator with settings, as above. - Continue to monitor ABG. - Her chest xray acutely worsened overnight and demonstrates bilateral widespread pulmonary air space opacities L>R, as above. We plan to place her on BiPAP instead of nasal canula and start a Lasix gtt to engine house helper her breathing and avoid re-intubation if at all possible. 2. 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 Active. - Echocardiogram revealed stress induced cardiomyopathy with an EF of 30-35%, however, when reviewed by Dr. Yeung of cardiology the EF is closer to 25-30%. - The dobutamine gtt was discontinued overnight potentially leading to her acute worsening of pulmonary edema. Restart dobutamine for stress induced cardiomyopathy and cardiac cachexia per cardiology and DO NOT DISCONTINUE. - Continue diuresis with Lasix gtt for the above aforementioned. Of note, her ileostomy has had increased output since starting diuresis and she has had decreasing urine output out of her Taylor catheter raising the concern for a vesicoenteric fistulae. Considering a retrograde pyelogram to assess for extravasation of contrast dye into the GI tract when patient is less acute. - Cardiology consulted and following. We appreciate their time and care of the patient. 3. Distal terminal ileal enteroenteric fistulae, acuity unknown, present on admission. Active. - The patient presented complaining of generalized abdominal pain, worse in the LLQ, associated with nausea and vomiting. - At least one enteroenteric fistula visualized please see endoscopy note for details, as above. - The patient will likely need revision of stenotic stoma and fistulae in the future once nutritional status is improved. - Continue fentanyl gtt for pain control, as above. - GI consulted and following. We appreciate their time and care of the patient. - Surgery consulted and following. We appreciate their time and care of the patient. 4. Chronic partial low-grade small bowel obstruction, present on admission. Resolving. - Likely secondary to stenotic ileostomy stoma. - CT abdomen and pelvis without contrast on admission revealed distended loops from probable chronic partial low-grade small bowel obstruction. Repeat CT abdomen and pelvis without contrast showed decreased small bowel distention, as above. - Continue TPN and advance to goal with addition of micronutrients. Per discussion with Surgery and GI discontinued TF as patient has continued abdominal pain and severe small bowel dilatation which could potentially turn into a surgical emergency. - GI performed endoscopy with successful 12 mm stomal dilatation see endoscopy note for details, as above. - GI consulted and following. We appreciate their time and care of the patient. - Surgery consulted and following. We appreciate their time and care of the patient. 5. Acute thrombocytopenia, not present on admission. Resolving. - Likely partly dilutional and possibly from bone marrow suppression from severe malnourishment. - Platelet count trending up. Lowest count 33. - Continue to monitor platelet count daily. 6. Acute on chronic microcytic anemia, present on admission. Active. - Acute portion most likely dilutional due as she was net +11 L and chronic portion likely from severe malnourishment causing multiple vitamin deficiencies and likely bone marrow suppression. - Received 2 units of PRBC to date during this admission. - No overt signs of bleeding. Continue to monitor hemoglobin and hematocrit daily. Chronic problems per primary team: 7. Chronic Crohn's disease status post colectomy and ileostomy with stomal stenosis, present on admission. Active. - Patient is immunocompromised due to Humira and steroids for Crohn disease. Continue hydrocortisone 50 mg every 8 hours for steroid stress dosing. - The patient will likely need revision of stenotic stoma and fistulae in the future once nutritional status is improved. - Humira has been held during acute illness. - GI consulted and following. We appreciate their time and care of the patient. 8. Chronic severe protein calorie malnutrition, present on admission. Active. - Patient is not a PEG tube candidate per GI but has previously been noncompliant with Dobhoff due to discomfort and anxiety therefore options for feeding are limited to TPN currently. - Continue TPN and advance to goal. Per discussion with Surgery and GI discontinued TF as patient has abdominal pain and severe small bowel dilatation as above. - Discontinued albumin 25 g IV every 8 hours. - The patient will need a tunneled catheter for intermission coordinator TPN when she is less acute. 9. Recent upper extremity DVT, not present on admission. Resolved. - Ultrasound did not show definite DVT, as above. - Anticoagulation with Fondaparinux discontinued as patient received sufficient course of anticoagulation for UE DVT in October after PICC line placement. 10. Anxiety and depression, present on admission. Active. - Patient's anxiety and depression are related to disease condition but causing significant morbidity none the less. - Continue Klonopin 0.5mg BID and Fluoxetine 20 mg daily. 11. Likely acute thrush, present on admission. - Secondary to prednisone usage. - Will plan to treat with Nystatin suspension. Disposition: Guarded as the patient has significant comorbidities. . GI Prophylaxis: H2 luis carlos VTE Prophylaxis: Sub-Q Heparin (Unfractionated) VTE Mechanical Devices: Intermittant Pneumatic CD Resuscitation Status: DNR/DNI:Do Not Resuscitate/Intubate Attending Statement I have seen and examined this patient with the resident physician. Vital signs , labs, imaging have been reviewed. I agree with the assessment and plan above. Please refer to my separately dictated progress note for any modifications to above. Loraine Vo M.D. Pulmonary and Critical Care medicine Pager [phone] Dania Brandt DO Dec 31, 2016 11:43 Loraine Vo MD Jan 01, 2017 08:21
--- NOTE | 2016-12-31 11:59 | PCM.PHAPRO ---
Progress tpn . PARENTERAL NUTRITION ORDERS 31-Dec-16 Standard Hang Time: 2100 Substrates Total kcal: 940 AMINO ACIDS 65 g DEXTROSE 200 g Total Volume (mL): 1000 LIPIDS 0 g Sterile Water for Injection QS mL To Infuse Over (hrs): 24 Total Volume 1000 mL At at a rate of (mL/hr): 42 Additives Sodium Chloride 40 mEq "typical" daily requirements Sodium Acetate 0 mEq Sodium 50-120mEq Potassium Chloride 60 mEq Potassium 60-120mEq Potassium Phosphate 35 mEq Phosphate 20-40mEq Calcium Gluconate 4.5 mEq Magnesium 8-32mEq Magnesium Sulfate 8 mEq Calcium 9-22mEq Acetate* 80-120mEq Chloride* 80-120mEq Regular Insulin units *Depending on acid-base status Famotidine mg Multivitamins 1 std dose Insulin Regimen Trace Elements 1 std dose none Thiamine mg Regular Low Intensity Subcut Folic Acid 1 mg Regular Medium Intensity Subcut Ascorbic Acid 1000 mg Regular High Intensity Subcut Regular Insulin Infusion Other: Special Instructions: To be infused via central line only. For delay or inturruption of TPN contact the pharmacist for alternative replacement solution. IV LIPID 20% 250mL Annie Miller Sat Fisher, Glenn S Pharm D Dec 31, 2016 11:59
[2016-12-31] MEDS: DOBUTamine 500 mg/250 D5W 500,000 MCG in IV Premix 1 EACH IV SCH (12:05)
--- NOTE | 2016-12-31 13:23 | PCM.PNMED ---
Subjective Date of Service Dec 31, 2016 Subjective GASTROENTEROLOGY PROGRESS NOTE Patient seen at bedside, appears in moderate distress with RR 38-42, on BPAP therapy. Patient was extubated 12/30 at 1555. Overnight, developed worsening respiratory status, with increased rates and increased work of breathing. CXR this am reveals bilateral opacities likely pulmonary edema, L > R, appears not improved compared to previous days. Report of CXR pending. Ms. Beauchamp continues to endorse abdominal pain, also admits to SOB. Although she is wearing BPAP mask , she is able to answer yes/no questioning appropriately. Mother present at time of examination and evaluation. Tearful about recent events. Exam Vital Signs Vital Sign - Last Date Time Temp Pulse Resp B/P Pulse Ox O2 Delivery O2 Flow Rate FiO2 12/31/16 07:39 37.1 95 37 108/80 95 Nasal Cannula 5.00 12/30/16 15:12 35 Intake and Output 12/30/16 12/30/16 12/31/16 Cumulative From/Thru 15:00 23:00 07:00 12/18/16 14:54 - 12/31/16 06:16 Intake Total 661 ml 1066 ml 83161 ml Output Total 2475 ml 2350 ml 35950 ml Balance -1814 ml -1284 ml 4365 ml Intake Oral 8710 ml IV Total 661 ml 562 ml 84620 ml Tube Feeding 482 ml TPN/PPN 504 ml 4498 ml Packed Cells 300 ml Tube Irrigant 770 ml Output Urine Total 725 ml 250 ml 06464 ml Stool Total 1750 ml 1750 ml 61934 ml Urine/Stool Mix 700 ml Gastric Drainage Total 350 ml 775 ml # Voids 1 Exam General: Frail, cachetic; on BPAP in CCU; mild distress noted; responds well to yes/no questioning Head: Atraumatic; cushinoid-facies; sclera anicteric Neck: Right IJ in place with bandages clean/dry and intact with minimal leakage Nose: Mucous Membr Moist/[place] Mouth: Mucous Membr dry; ETT/OGT in place and secured Chest & Lungs: Adequate air flow; bibasilar coarse sounds; no wheeze Cardiovascular: Tachycardic at time of evaluation with rate approx 92 Pulses: Radial (equal and bilateral) Abdomen: Mildly tender, soft; ostomy site free of erythema; output liquid green -brown dark stool, no evidence edy blood; hypoactive sounds : Taylor present and secured Extremities: Warm; no edema noted BLLE, compression socks and SCDs in place, without noted edema proximal to SCD; mild BLUE dependent edema with R > L likely secondary to infiltrated IV site or phleb site Skin: Warm and dry Neurological: CNII-XII grossly intact; unable to fully assess secondary to BPAP mask and respiratory distress Psych: Difficult to assess secondary to conversation limited by respiratory status; limited insight and judgment based on history of noncompliance Lab and Diagnostics Result Diagram: 12/31/1651312/31/16513 Microbiology Stool PCR negative. Urine culture grew mixed urogenital floor. MRSA screen negative. BAL respiratory viral PCR negative. BAL Legionella, acid-fast bacillus, PCP, CMV all pending. Blood culture 2 has no growth after 2 days. Blood fungal culture 2 pending. . X-Rays, CTs and MRIs Chest x-ray performed 12/29/2016 IMPRESSION: Pulmonary edema and/or diffuse bilateral pneumonia not significantly changed. ARDS cannot be excluded. Dictated by: Jimmy ESCALANTE Interpreted: More Woodard MD on 12/30/2016 at 10:27 Chest X-ray performed 12/29/16 IMPRESSION: Pulmonary edema and/or diffuse bilateral pneumonia not significant changed. ARDS cannot be excluded. Dictated by: Jimmy ESCALANTE Interpreted: Keeley Bethea MD on 12/29/2016 at 8:58 Portable chest x-ray performed 12/27/2016 IMPRESSION: 1. Persistent bilateral airspace consolidation with a perihilar predominance as well as left retrocardiac consolidation. Findings most likely represent pneumonia including from atypical etiologies. 2. Persistent bilateral pleural effusions. Chest CT without contrast performed 12/26/2016 IMPRESSION: 1. Severe bilateral pneumonia. 2. Small bilateral pleural effusions. 3. Opacification of the right lower lobe bronchus, consistent with mucous plugging. 4. Small amount of ascites. 5. Severe abdominal subcutaneous edema. 6. Findings discussed with Dr. Brandt on 12.26.16 at 1439 hrs. Dictated by: Calvin Bonds M.D. on 12/26/2016 at 14:[address] without contrast performed 12/26/2016 IMPRESSION: 1. No acute intracranial abnormality. Dictated by: Chris Heredia M.D. on 12/26/2016 at 8:25 CT ABDOMEN AND PELVIS WITHOUT CONTRAST IMPRESSION: 1. Free air is not identified. 2. Markedly distended colon suggesting distal colonic obstruction. Rectal tube may be of benefit. 3. Question of low-density stones versus particles of air in the gallbladder. Ultrasound is suggested. ADDENDUM: Additional information is that the patient has had a colectomy. The distended loops therefore must be small bowel. In addition there is an ileostomy rather an ileal loop into the right lower quadrant. In the operative from this is reportedly fairly good. This would indicate that C. dilated small bowel loops are related to a chronic low-grade obstruction or a relatively acute high-grade obstruction. No wall thickening or air in the tsai of the dilated loops is seen. Since the patient does not have obstructive symptoms clinically this is likely to be a distended loops from chronic partial low grade obstruction of a small bowel loop. Dictated by: Esteban Cabrera M.D. on 12/18/2016 at 18:44 US ABDOMEN, LIMITED IMPRESSION: Multiple stones in the gallbladder but no free air or changes to indicate acute cholecystitis. Dictated by: Esteban Cabrera M.D. on 12/18/2016 at 19:49 X-RAY ACUTE ABDOMINAL SERIES IMPRESSION: Changes are consistent with partial or early small bowel obstruction. Dictated by: Esteban Cabrera M.D. on 12/18/2016 at 20:37 Cardiac Echo Impressions Echocardiogram Interpretation Summary: The left ventricle is normal in size. The ejection fraction is estimated to be 30-35%. Except basal LV segments and apical segments which have preserved or slightly increased contractility, rest all the mid LV segments are severey hypokinetic to akinetic. This pattern favors atypical stress induced cardiomyopathy. The right ventricle is normal size.Right ventricular systolic function is at the lower limits of normal. There is moderate mitral regurgitation. There is mild to moderate tricuspid regurgitation. Right ventricular systolic pressure is estimated to be 25 mmHg plus the clinically estimated CVP which cannot be estimated on this exam. There are small-sized bilateral pleural effusions noted. The patient was in sinus bradycardia with heart rates between 57-58 bpm during the exam. . Additional Diagnostics Bronchoscopy FINDINGS: Normal appearing airways. Fluid is blood-tinged on the right and yellowish orange on the left, not consistent with alveolar hemorrhage. Samples of right upper lobe anterior segment, BAL and lingular BAL were both pooled, approximately 60 cc total. TESTING: BAL was pooled and sent for bacterial, fungal, AFB, pneumocystis, viral cultures, as well as cytology and cell count with differential. Loraine Vo MD 12/26/16 1524 Limited ileoscopy with stoma balloon dilatation under fluoroscopy: ENDOSCOPIC DIAGNOSES: 1. Severe stomal stenosis. 2. 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 3. Successful stomal dilatation to 12 mm. RECOMMENDATIONS: 1. After again cleaning the skin, application of the ostomy bag is to be performed in the ICU. 2. Continue full liquid diet. 3. As long as there are no apparent hemorrhagic complications, I think it would be fine to continue the fondaparinux this evening. 4. Dr. Abbott is planning on placing the right IJ for central access this evening and once this is in position, TPN should immediately be Kirby Valdez MD 12/24/16 7250 . Assessment & Plan GASTROENTEROLOGY PROGRESS NOTE Ms. Terra Beauchamp is an extremely pleasant 31 year old woman that recently moved to the [facility] from the [facility] with a complex history of Crohn 's disease s/p total proctocolectomy with end ileostomy performed at [facility] in [place], [place]. She is on chronic glucocorticoids with Humira therapy, multiple prior obstructions/near obstructions near ostomy, recurrent flares, and recent left UE DVT secondary to PICC placement for TPN, who presented to the ED 12/18/2016 with acute on chronic diffuse abdominal pain, vomiting, and nausea. 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 - Adrenal insufficiency secondary to chronic steroid use - LUE DVT secondary to PICC placement, completed fondaparinux therapy - Severe protein/calorie malnutrition, BMI 15 on admission, s/p RIJ placement for TPN - CT showing chronic low-grade obstruction. However clinically she is passing gas and passing fecal material. - Abdominal pain; chronic. Likely secondary to chronic, low grade stenosis and po attempts for maximal intake to maintain nutrition Plan/Recommendations for 12/31/2016: - Diuresis per primary team to minimize fluid retention and improve respiratory status - Continue stress dose steroids and antimicrobials as appropriate per primary team - Monitor HH and stool output - If ostomy output begins to decline, and increased distention coincides, indicative for repeat stoma dilatation - HOLD tube feeds at this time- will re-assess daily - Holding secondary to increased distention and response to pain - Continue TPN; adjust/transition to least hepatotoxic formula - Low threshold for repeat abd XR remains Additional recs/info: - OK to hold Humira for this due dose - Remind patient and mother to provide [facility] records to [facility]/GI - Recommend continued PT evaluation - Had appt with Dr. Dominic Zaidi at on 12/31; cancelled by mother; this will need to be addressed when patient approaches DC, as we may need to assist in arranging FU Additional summary: Patient has history of noncompliance, and removed Dobhoff the day of previous discharge while she was on her way home. Dobhoff was also removed while she was going home after the admission prior to that. Nutrition is essential for her, as she likely requires a complete revision, but her nutritional status is too poor to promote adequate healing. Previous discussions have included SNF. She is not a PEG candidate, as it would likely be more detrimental than beneficial especially because of the poor nutritional status indicated by low albumin. This is have significant impact on wound healing. Tube feeds were anticipated to last at least three months. Due to the history of noncompliance with Dobhoff and need for surgical intervention, TPN is next best choice. This does not come without risk, as her previous TPN site led to a DVT. She is still receiving anticoagulation at this time. Risks of TPN explained to patient, and because her need for nutrition is becoming increasingly critical, it is pursued at this time. TPN carries significant risk of infection, especially with her history of immunosuppression secondary to fpc steroids and now Humira use. On 12/24, she was urgently taken to endoscopy for another dilation of stoma, and then transferred to CCU for continued care. She has remained in critical condition with decreased respiratory function requiring mechanical ventilatory support. Diuretics and O2 delivery methods ordered. Cardiology consulted as well, to evaluate EF 30-35, further review likely EF-25. Patient on dobutamine infusion, managed per cardiology. Suspected pathophysiology secondary to oncotic shifts that resulted in pulmonary flash edema after TPN infusion initiated. Diuresis continues. Patient was extubated 12/30/16 @1555, and later that evening, developed respiratory distress, BPAP placed. RR remains 38-42. Again, at this time, deferring respiratory care and diuresis to primary team. Holding tube feeds secondary to continued pain, err on caution to avoid worsening any suspected obstruction. Will let bowels rest at this time, and re- assess daily. No need for scheduled bowel regimen. Monitor output daily. We will re-assess daily and monitor for any need of re-dilatation of stoma. Total time: 40 minutes GI Prophylaxis: H2 luis carlos VTE Prophylaxis: Sub-Q Heparin (Unfractionated) VTE Mechanical Devices: Intermittant Pneumatic CD Resuscitation Status: DNR/DNI:Do Not Resuscitate/Intubate Attending Statement Patient seen and examined. Agree with assessment and plan as described by Dr Arteaga. Patient was inadvertently taken off the dobutamine overnight and developed increasing resp distress this morning after being extubated yesterday afternoon. This afternoon, much improved with BiPAP. There was some concern that there could conceivably be an vesico-enteric fistula. However, no UTI. Liquid bilious stool in stoma bag. Back on dobutamine. Seems to respond well to anxiolysis as well. Still has ileus by exam. No vomiting. If any increasing abd distension, will need NGT to low intermittent suction. Elissa Arteaga DO Dec 31, 2016 08:30 Kirby Valdez MD Dec 31, 2016 21:36
[2016-12-31] MEDS: 0.9% Sodium Chloride 1,000 ML IV SCH (16:56)
--- NOTE | 2016-12-31 19:21 | PCM.PNMED ---
Subjective Date of Service Dec 31, 2016 Subjective Was able to remain extubated overnight, though she has some shortness of breath this morning, denies any pain, only tenderness with palpation of her abdomen. Additionally states that she is tired. Exam Vital Signs Vital Sign - Last Date Time Temp Pulse Resp B/P Pulse Ox O2 Delivery O2 Flow Rate FiO2 12/31/16 17:48 104 24 94 BiPAP 40 12/31/16 17:00 121/90 12/31/16 15:46 36.8 12/31/16 07:39 5.00 Intake and Output 12/30/16 12/30/16 12/31/16 Cumulative From/Thru 15:00 23:00 07:00 12/18/16 14:54 - 12/31/16 06:16 Intake Total 661 ml 1066 ml 56975 ml Output Total 2475 ml 2350 ml 97068 ml Balance -1814 ml -1284 ml 4365 ml Intake Oral 8710 ml IV Total 661 ml 562 ml 17807 ml Tube Feeding 482 ml TPN/PPN 504 ml 4498 ml Packed Cells 300 ml Tube Irrigant 770 ml Output Urine Total 725 ml 250 ml 61832 ml Stool Total 1750 ml 1750 ml 46140 ml Urine/Stool Mix 700 ml Gastric Drainage Total 350 ml 775 ml # Voids 1 Exam General: Cachectic woman, somnolent but arousable, alert and oriented 3 HEENT: Oropharynx is dry, there is dried blood to the upper lip, unable to appreciate any thrush. Neck: Central venous catheter right internal jugular. No JVD appreciated. Chest & Lungs: Diffuse scattered rales, mild, normal full chest excursion. Cardiovascular: RRR, no murmurs noted Pulses: Decreased radial pulses bilaterally, dorsalis pedis present and equivalent bilaterally. Abdomen: Non-distended, soft, nontender, ileostomy in place, stoma free of erythema and leakage, scattered ecchymosis and scarring over her abdomen. Extremities: Cool. trace edema to BL LE. Compression stockings in place. Skin: Dry cracking skin diffusely on back and extremities, early pressure ulcer changes on sacrum and iliac. Abrasions to back and legs Taylor catheter in place Neuro: Able to move her extremities on her own volition, Musculoskeletal: Upper extremity flexion and extension from laying position are 5 out of 5, able to lift legs off the bed against resistance dorsiflex and plantarflex foot 5 out of 5. Senior [employer] Intelligence Analyst strength is equal bilaterally IVs and Medications Medications Reviewed: Medications were reviewed in detail Lab and Diagnostics Result Diagram: 12/31/16 1547 12/31/16 0514 Microbiology Stool PCR negative. Urine culture grew mixed urogenital floor. MRSA screen negative. BAL respiratory viral PCR negative. BAL Legionella, acid-fast bacillus, PCP, CMV all pending. Blood culture 2 has no growth after 2 days. Blood fungal culture 2 pending. . X-Rays, CTs and MRIs Chest x-ray performed 12/31/2016 -imaging was reviewed personally in detail IMPRESSION: Worsening pulmonary edema versus diffuse bilateral inflammatory process. ARDS cannot be excluded. Dictated by: Jimmy ESCALANTE Interpreted: Keeley Bethea MD on 12/31/2016 at 9:13 Chest x-ray performed 12/29/2016 IMPRESSION: Pulmonary edema and/or diffuse bilateral pneumonia not significantly changed. ARDS cannot be excluded. Dictated by: Jimmy ESCALANTE Interpreted: More Woodard MD on 12/30/2016 at 10:27 Chest X-ray performed 12/29/16 IMPRESSION: Pulmonary edema and/or diffuse bilateral pneumonia not significant changed. ARDS cannot be excluded. Dictated by: Jimmy ESCALANTE Interpreted: Keeley Bethea MD on 12/29/2016 at 8:58 Portable chest x-ray performed 12/27/2016 IMPRESSION: 1. Persistent bilateral airspace consolidation with a perihilar predominance as well as left retrocardiac consolidation. Findings most likely represent pneumonia including from atypical etiologies. 2. Persistent bilateral pleural effusions. Chest CT without contrast performed 12/26/2016 IMPRESSION: 1. Severe bilateral pneumonia. 2. Small bilateral pleural effusions. 3. Opacification of the right lower lobe bronchus, consistent with mucous plugging. 4. Small amount of ascites. 5. Severe abdominal subcutaneous edema. 6. Findings discussed with Dr. Brandt on 12.26.16 at 1439 hrs. Dictated by: Calvin Bonds M.D. on 12/26/2016 at 14:[address] without contrast performed 12/26/2016 IMPRESSION: 1. No acute intracranial abnormality. Dictated by: Chris Heredia M.D. on 12/26/2016 at 8:25 CT ABDOMEN AND PELVIS WITHOUT CONTRAST IMPRESSION: 1. Free air is not identified. 2. Markedly distended colon suggesting distal colonic obstruction. Rectal tube may be of benefit. 3. Question of low-density stones versus particles of air in the gallbladder. Ultrasound is suggested. ADDENDUM: Additional information is that the patient has had a colectomy. The distended loops therefore must be small bowel. In addition there is an ileostomy rather an ileal loop into the right lower quadrant. In the operative from this is reportedly fairly good. This would indicate that C. dilated small bowel loops are related to a chronic low-grade obstruction or a relatively acute high-grade obstruction. No wall thickening or air in the tsai of the dilated loops is seen. Since the patient does not have obstructive symptoms clinically this is likely to be a distended loops from chronic partial low grade obstruction of a small bowel loop. Dictated by: Esteban Cabrera M.D. on 12/18/2016 at 18:44 US ABDOMEN, LIMITED IMPRESSION: Multiple stones in the gallbladder but no free air or changes to indicate acute cholecystitis. Dictated by: Esteban Cabrera M.D. on 12/18/2016 at 19:49 X-RAY ACUTE ABDOMINAL SERIES IMPRESSION: Changes are consistent with partial or early small bowel obstruction. Dictated by: Esteban Cabrera M.D. on 12/18/2016 at 20:37 Cardiac Echo Impressions Echocardiogram Interpretation Summary: The left ventricle is normal in size. The ejection fraction is estimated to be 30-35%. Except basal LV segments and apical segments which have preserved or slightly increased contractility, rest all the mid LV segments are severey hypokinetic to akinetic. This pattern favors atypical stress induced cardiomyopathy. The right ventricle is normal size.Right ventricular systolic function is at the lower limits of normal. There is moderate mitral regurgitation. There is mild to moderate tricuspid regurgitation. Right ventricular systolic pressure is estimated to be 25 mmHg plus the clinically estimated CVP which cannot be estimated on this exam. There are small-sized bilateral pleural effusions noted. The patient was in sinus bradycardia with heart rates between 57-58 bpm during the exam. . Additional Diagnostics Arterial blood gas performed 12/31/2016 at 5:56 AM PH 7.49 PCO2 42.4 PO2 66.6 HC03 32.3 Bronchoscopy FINDINGS: Normal appearing airways. Fluid is blood-tinged on the right and yellowish orange on the left, not consistent with alveolar hemorrhage. Samples of right upper lobe anterior segment, BAL and lingular BAL were both pooled, approximately 60 cc total. TESTING: BAL was pooled and sent for bacterial, fungal, AFB, pneumocystis, viral cultures, as well as cytology and cell count with differential. Loraine Vo MD 12/26/16 1524 Limited ileoscopy with stoma balloon dilatation under fluoroscopy: ENDOSCOPIC DIAGNOSES: 1. Severe stomal stenosis. 2. 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 3. Successful stomal dilatation to 12 mm. RECOMMENDATIONS: 1. After again cleaning the skin, application of the ostomy bag is to be performed in the ICU. 2. Continue full liquid diet. 3. As long as there are no apparent hemorrhagic complications, I think it would be fine to continue the fondaparinux this evening. 4. Dr. Abbott is planning on placing the right IJ for central access this evening and once this is in position, TPN should immediately be Kirby Valdez MD 12/24/16 0378 . Assessment & Plan Terra Beauchamp is a 31 year old woman that recently moved to the [facility] from the [facility] with a complex history of Crohn's disease s/p total proctocolectomy with end ileostomy performed at [facility] in [place], [place]. She is on chronic glucocorticoids with Humira therapy, multiple prior obstructions/near obstructions near ostomy, recurrent flares, and recent left UE DVT secondary to PICC placement for TPN, who presented to the ED 2016 with acute on chronic diffuse abdominal pain, vomiting, and nausea. on hospital day 7 patient developed acute hypoxic respiratory failure and was transferred to the ICU. Hospital day 14 ICU, day 8 Total days on ventilator 5 Antibiotics/Antifungal day 5 1. Acute hypoxemic respiratory failure, not present on admission. Stable - Most likely due to fluid overload evidenced on x-ray has diffuse edema however , ARDS with capillary leak, fungal or atypical infection, cardiac etiology, and refeeding syndrome are differentials. (x-ray images reviewed) - Chest x-ray worsening pulmonary edema after being taken off the ventilator, increased respiratory effort. - Arterial blood gas demonstrated low blood oxygen, trial of BiPAP today and this evening. - Cardiac etiology :Echocardiogram: Ejection fraction 25-30%, stress-induced cardiomyopathy, cardiac cachexia. - Infectious etiology: Chest CT without contrast demonstrated Severe bilateral pneumonia, small bilateral pleural effusions, opacifications consistent with mucous plugging, STOP Zosyn and continue Bactrim 1 pill a day for prophylaxis while holding Humira per Infectious Disease Bronchoscopy completed, no gross abnormalities. Serologies remain negative. Awaiting cytology results. Fungal blood cultures 2 remain negative Fungal Antibodies = Elevated, rechecking that Zosyn has been discontinued. May be false positive secondary to Zosyn. Continue Cresemba per ID. Histo urine antigen negative. HIV screen = negative Serum CMV PCR - pending LDH elevated on recheck. - Renal Etiology - Urine protein negative, - Autoimmune panel negative - Infectious disease, cardiology, critical care pulmonology, general surgery, and gastroenterology following in consultation on the case. We appreciate their time, evaluation, and recommendations. - Will monitor I&O's closely. - ABGs with changes in respiratory status. 2. Acute systolic congestive heart failure, not present on admission, management ongoing. - Echocardiogram reevaluation by Dr. Yeung stated ejection fraction 25-30%, stress- induced cardiomyopathy, and cardiac cachexia. - Continue dobutamine drip continuously as this was found not to be administered continuously overnight, which could possibly be contributing to worsening pulmonary edema mentioned above. - Continue gentle diuresis with furosemide 20 mg IV daily. - There was reported increase in ostomy output with administration Lasix, and decreased urine output of her Taylor catheter, consider retrograde pyelogram to assess for presence of vesicoenteric fistula when less acute. - Cardiology is consulting, we appreciate their evaluation, and recommendations regarding the case. 3. Crohn's disease with RLQ high output Ileostomy with severe protein/calorie malnutrition, present on admission - Continue prednisone, hold Humira. 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 - Patient not a PEG tube candidate per GI but surgical resident believe this would be preferable option. - She has previously been noncompliant with Dobhoff due to discomfort and anxiety. - Tube feeds discontinued per gastroenterology recs. - TPN for a total of 110-120% daily caloric requirements. Additional micronutrients added. - Gen. surgery has discussed the possibility of a Groshong catheter for long- term TPN with patient's mother, patient is still currently fragile and not able to tolerate surgery at this time. Once patient is strong enough patient will go for procedure - Based on gastroenterology's recommendations we have low threshold to repeat abdominal x-ray with increased pain/or mild distention. 4. Acute hypokalemia, not present on admission, Improved. - Has returned to normal levels with the discontinuation of IV drip continuous furosemide. - Continue to monitor with BMP and replete as needed. 5. Acute aspiration, not present on admission, not active - Patient was receiving oral food, she began to cough and it was perceived that she was aspirating. - Infectious disease was notified, patient restarted on Zosyn IV, she has completed 3 days. STOPPED Zosyn today. - Will plan for speech therapy to evaluate the patient when more stable. 6. Thrombocytopenia, acute, not present on admission. Improved. - Concern for HIT. - She continues on a stress dose of hydrocortisone decreased from 100 mg every 8 hours on 12/26/16 to 50mg every 8 hours on 12/26/16 - Heparin Antibodies - 0.070 within normal limits - Fondaparinux has been discontinued. She has completed 2 full months of treatment. 7. Acute anemia, not present on admission, Stable - Hemoglobin continues to turn down this morning 12/31/2016, recheck H&H and has remained stable though low. - Most likely dilutional due to the numerous liters of fluid she has received - 2 units of packed red blood cells were transfused, this in conjunction with diuresis has brought her hemoglobin to greater than 10 on (12/25/16) - Continue to monitor CBC. 8. Fever, acute - resolved. - Patient remains on Zosyn (day 3). - Infectious disease continues to consult and we appreciate Dr. Bynum's expertise. 9. Hypovolemic hyponatremia, chronic, present on admission - resolved. - Patient's volume status has been repleted, sodium has returned to normal levels. - Continue to monitor BMP. 10. Abdominal pain in the setting of Crohn's disease s/p total proctocolectomy with RLQ ileostomy, acute, present on admission - Likely due to strictures and obstruction. - More difficult to assess while intubated and sedated. - Continue to monitor. Patient tolerating tube feeding so far. 11. Early or partial small bowel obstruction, acute, present on admission - Most recent abdominal imaging shows evidence of developing small bowel obstruction and other strictures. She is still having high ostomy output, although mostly just liquids. Status post stomal dilation December 24 - GI consulted, will continue to follow, appreciate time and input. - Surgery consulted and following. Appreciate time and input. - Patient receiving TPN and tolerating this so far. 12. Hypochromic microcytic anemia, likely iron deficiency, chronic, present on admission - Due to poor oral intake and poor nutritional status - Consider iron supplementation as outpatient - Continue to monitor CBC. 13. Anxiety and Depression, POA - Patient's anxiety and depression are related to significant chronic disease condition, but creating significant morbidity none the less. - Continue lorazepam 0.5 mg IV push PRN. 14. Likely Oral Candidiasis, acute - Secondary to Prednisone usage and - Continue to monitor closely. - Nystatin being given PO BID. - Antiemetic available PRN. Disposition: Anticipate several more days in the CCU due to low blood pressures necessitating pharmacologic IV support. Hospital course difficult to anticipate , may require transfer to tertiary receiving facility. CODE STATUS: Full code Case was discussed with critical care (Dr. Shona Vo) and cardiology (Dr. Carey) Pain Evaluation: Adequate Pain Control GI Prophylaxis: H2 luis carlos VTE Prophylaxis: Sub-Q Heparin (Unfractionated) VTE Mechanical Devices: Intermittant Pneumatic CD Resuscitation Status: CPR: Attempt Resuscitation Time spent Greater than 35 minutes Attending Statement The patient was seen and examined together with Dr. Couch on 12/31/16 and I have added additional information to the note above. Humberto Couch DO Dec 31, 2016 19:21 Trena Lauren DO Jan 02, 2017 13:55
[2016-12-31] MEDS: Total Parenteral Nutrition 1 BAG IV SCH (21:20)
[2017-01-01] VITALS (10 sets, daily range): BP systolic 109–127; BP diastolic 68–87; PULSE 89–95; RESP 21–29; O2SAT 97–100
[2017-01-01] MEDS: Heparin 5,000 Unit/mL Inj SUBQ SCH ×3 (00:03→16:30)
[2017-01-01] MEDS: Hydrocortisone 50 mg/mL 2 mL Inj IVPUSH SCH ×3 (00:04→16:30)
[2017-01-01] MEDS: Ipratropium 0.02% 0.5 mg/2.5 mL Inhalation Solution NEB SCH ×4 (01:21→20:48)
[2017-01-01] MEDS: HYDROmorphone 0.5 mg/0.5 mL iSecure Syringe IVPUSH PRN ×5 (02:12→21:11)
[2017-01-01] MEDS ORDERED: Lactated Ringer's 1,000 ML IV SCH (05:00)
[2017-01-01 05:08] LABS: BASOPHILS % (AUTO) 0.2 % (0-3); EOSINOPHILS % (AUTO) 0 % (0-5); MONOCYTES % (AUTO) 2.6 % (4-12); Mean Corpuscular Hemoglobin 25.7 pg (27.0-35.0); NEUTROPHILS % (AUTO) 93.2 % (40-74); Platelet Count 163 bil/L (150-400)
[2017-01-01 05:27] LABS: Phosphorus 3.4 mg/dL (2.5-4.9)
[2017-01-01] MEDS ORDERED: KCl 40 mEq/100 mL (CENTRAL) 40 MEQ in IV Premix 1 EACH IV ONE ×2 (05:40→07:50)
[2017-01-01] MEDS: Ondansetron 2 mg/mL 2 mL Inj IVPUSH PRN ×3 (07:46→21:12)
[2017-01-01] MEDS: Nystatin 100,000 Unit/Gm 15 Gm Powder TOPICAL PRN ×2 (08:15→20:41)
[2017-01-01] MEDS: Nystatin 100,000 Unit/mL 5 mL Suspension PO SCH ×2 (08:15→20:30)
[2017-01-01] MEDS: Famotidine Inj 20 MG in IV Premix 1 EACH IV SCH ×2 (08:17→20:41)
--- NOTE | 2017-01-01 08:36 | PROG NOTE ---
[address] [address] PROGRESS NOTE PATIENT: MAE FELIZ : 1985 MR#: [id number] ADMIT: 12/18/2016 JOB ID: [id number] DATE: 01/01/2017 INFECTIOUS DISEASE FOLLOW UP NOTE: REASON FOR FOLLOW UP: Pulmonary infiltrates with possible underlying pneumonia in a severely malnourished patient with Crohn disease. INTERVAL HISTORY: Overnight, the patient has been stable, and in fact, a little bit better. She is currently oxygenating well on a BiPAP device. She denies significant shortness of breath or cough. No fevers, chills, sweats. She has had high residuals through her feeding tube. Input has been stopped and she is now just getting TPN. PHYSICAL EXAMINATION: Reveals an extremely cachectic young woman in no acute distress. She is breathing easily on her face mask. Temperature 37, she has been afebrile for several days at this point. Pulse 90, respiratory rate 25-30, blood pressure 109/76. She is not on vasopressor agents and she is saturating very well on the BiPAP. She is awake, alert and interactive this morning. Oral cavity is benign. PICC line is present and the patient is receiving TPN through it in the right upper extremity. Lungs with a few crackles bilaterally but relatively clear. Cardiac tones: Mildly tachycardic without murmur. Abdomen: Extremely thin but without notable new abnormality. Some diffuse tenderness and the ileostomy is present as before. No skin rash. The patient no longer has a feeding tube of any kind. LABORATORIES: Include stable white count 6300. Creatinine less than 0.3. ALT is 118, which is considerably above baseline but may be due to some sort of refeeding phenomena. Albumin 3.9. Procalcitonins remain negative. Serologic studies pending include CMV and a repeat Fungitell. The micro studies include negative blood cultures multiple times. The bronch wash was now done six days ago. We have back the Legionella DFA as well as AFB smears, and a CMV culture, all of which are negative but we lack the Pneumocystis smear after six days which is disconcerting and I have contacted the lab to see if we can expedite this. Chest x-rays were compared to yesterday's. Look similar to slightly better. Has the appearance of ARDS or CHF. IMPRESSION: This patient seems to be doing a bit better overnight. I see no evidence for ongoing infection though she remains at incredibly high risk given her profoundly immunosuppressed state because of her wasting, recent steroids and recent TNF inhibitors. The only luo piece of data we are missing is the Pneumocystis stains from the bronch wash as she does have a somewhat elevated LDH and this remains a concern. RECOMMENDATIONS: 1. This case discussed with the ICU team. 2. We await the Pneumocystis stains. 3. I would keep the patient on Bactrim 1 double-strength tablet once a day or supply the same medicine IV as that is another option, as prevention against Pneumocystis. 4. Will continue to follow this patient until the Pneumocystis smear is received, which I hope will be today or tomorrow.
[2017-01-01] MEDS ORDERED: DEXTROSE 5% IV ONE (08:50)
[2017-01-01] MEDS ORDERED: ACETAZOLAMIDE IV ONE (08:50)
--- NOTE | 2017-01-01 09:12 | ABG ---
DateTimeAnalyzed 09:08:00 -_ pH ____7.506 - pCO2 ___47.8__ -mmHg pO2 ___34.5__ -mmHg HCO3- ___37.4__ -mmol/L ABE ___13.0__ -mmol/L tHb ____7.3__ -g/dL O2Hb ___64.3__ -% COHb ____0.7__ -% MetHb ____1.7__ -% sO2 ___65.9__ -% FIO2 ___35.0__ -% PEEP ____6.0__ -cmH2O Set_RR ___18.0__ -b/min Vt __380.0__ -L Drawn By NB - Date/Time Notified____ 09:11:00 -_ Spontaneous_RR ___22.0__ -b/min Oxygen Device 1 ____BIPAP - Notified By nb - Notified Whom Dr Parimi - B 760 -mmHg tO2 ____6.6__ -Vol% Daryl test N/A -
--- NOTE | 2017-01-01 10:01 | DRSVH ---
PROCEDURE: X-RAY CHEST ONE VIEW, PORTABLE ([id number]) INDICATIONS: Pulmonary Edema TECHNIQUE: One view of the chest was acquired. COMPARISON: [facility], CR, XR CHEST 1VW (PORTABLE), 12/31/2016, 5:33. FINDINGS: Surgical changes and devices: Stable positioning of right IJ CVL. Lungs and pleura: Slight increase in aeration and slight decrease in diffuse, widespread bilateral in terstitial and airspace opacities redemonstrated. Mediastinum: Mediastinal contours appear normal. Heart size is normal. Bones and chest wall: No suspicious bony lesions. Overlying soft tissues appear unremarkable. IMPRESSION: Increased aeration and slight decrease in pulmonary edema and/or multifocal pneumonia. Dictated by: Jimmy Eubanks RRA Interpreted: Keeley Bethea MD on 01/01/2017 at 10:00 Transcribed by: LAUREN on 01/01/2017 at 10:01 Approved by: Keeley Bethea MD, PhD on 01/01/2017 at 16:31
--- NOTE | 2017-01-01 10:22 | PCM.PNMED ---
Subjective Date of Service Jan 01, 2017 Subjective Intensive/Pulmonology Progress Note: Attending Dr. Gilda Beauchamp is a 31-year-old female with a complex past medical history significant for Crohn's disease status post total proctocolectomy with end ileostomy performed at [facility] in [place], [place]. She is on chronic glucocorticoids and Humira, with multiple prior obstructions and near obstructions, recurrent flares, and recent left UE DVT secondary to PICC placement for TPN, who presented to [facility] on 12/18/2016 with generalized abdominal pain, worse in the LLQ, associated with nausea and vomiting likely secondary to chronic partial low-grade small bowel obstruction from stenotic stoma who later in her hospitalization developed acute hypoxemic respiratory failure now status post requiring intubation x 5 days now extubated. Hospital day #15. Overnight: There were no acute events. Telemetry overnight: Sinus rhythm, heart rate 80 to 110's, without ectopy. Subjective exam and review of systems is somewhat limited due to patients laryngitis. She continues to report abdominal pain and mid back pain but reports it is tolerable and well controlled with pain medication. She endorses nausea which is relieved with Zofran. She reports shortness of breath but believes her breathing is improved since yesterday. She denies headache, chest pain, arm or leg pain, or vomiting. . Exam Vital Signs Vital Sign - Last Date Time Temp Pulse Resp B/P Pulse Ox O2 Delivery O2 Flow Rate FiO2 01/01/17 08:00 CPAP/BIPAP 01/01/17 08:00 91 29 109/76 100 15.00 01/01/17 05:16 45 01/01/17 04:03 37.0 Intake and Output 12/31/16 12/31/16 01/01/17 Cumulative From/Thru 15:00 23:00 07:00 12/18/16 14:54 - 01/01/17 06:17 Intake Total 807 ml 828 ml 41471 ml Output Total 1230 ml 2525 ml 57883 ml Balance -423 ml -1697 ml 2245 ml Intake Oral 8710 ml IV Total 303 ml 338 ml 29217 ml Tube Feeding 482 ml TPN/PPN 504 ml 490 ml 5492 ml Packed Cells 300 ml Tube Irrigant 770 ml Output Urine Total 1050 ml 2100 ml 81368 ml Stool Total 180 ml 425 ml 47738 ml Urine/Stool Mix 700 ml Gastric Drainage Total 775 ml # Voids 1 Exam General: Cachetic young female in no acute distress. HEENT: Normocephalic, atraumatic. External ears without defect. Pupils equal, round, and reactive to light. Anicteric sclerae, moist conjunctivae, and no lid lag. Cushingoid facies.BiPAP mask in place. Neck: No lymphadenopathy or thyromegaly. Cardiovascular: Regular rhythm, tachycardic, without murmurs, rubs, or gallops appreciated. Pulmonary: Diffuse bronchial breath sounds throughout anterior lung castillo, improved. No crackles or wheezes. Abdomen: Soft, scaphoid, mild tenderness to palpation, nondistended, ostomy in place in mid abdomen with green liquid stool, no hematochezia or melena. Extremities: Bilateral trace pitting edema to ankles bilaterally. No clubbing or cyanosis. Skin: Normal temperature, turgor, and texture; no rash, ulcers, or subcutaneous nodules appreciated. Neurological: Alert, mild distress, hoarse. Vent settings: BiPAP with AVAPS mode TV 400 FiO2 35%. ABG: PH 7.506. PCO2 47.8. PO2 34. 5. HCO3 37.4. On BiPAP with AVAPS mode with TV 400 and FiO2 35%. IV lines: Right IJ and left radial peripheral IV. I&O: Net + 2245. . IVs and Medications Medications Reviewed: Medications were reviewed in detail Lab and Diagnostics Item Value Date Time Calcium Level 8.6 mg/dL 01/01/17449 Phosphorus Level 3.4 mg/dL 01/01/17 045 Magnesium Level 1.9 mg/dL 01/01/17 0450 Total Bilirubin 1.0 mg/dL 01/01/17 0450 Aspartate Amino Transf (AST/SGOT) 103 U/L H 01/01/17 0450 Alanine Aminotransferase (ALT/SGPT) 118 U/L H 01/01/17 0450 Alkaline Phosphatase 131 U/L 01/01/17 0450 Total Protein 6.1 g/dL L 01/01/17 0450 Albumin 3.9 g/dL 01/01/17 045 Result Diagram: 01/01/1744901/01/17449 Microbiology Stool PCR negative. Urine culture grew mixed urogenital floor. MRSA screen negative. BAL respiratory viral PCR negative. BAL Legionella, acid-fast bacillus, PCP, CMV all pending. Blood culture 2 has no growth after 5 days. Blood fungal culture 2 pending. . X-Rays, CTs and MRIs X-RAY CHEST ONE VIEW, PORTABLE IMPRESSION: Increased aeration and slight decrease in pulmonary edema and/or multifocal pneumonia. Dictated by: Jimmy ESCALANTE Interpreted: Keeley Bethea MD on 01/01/2017 at 10:00 CT CHEST WITHOUT CONTRAST IMPRESSION: 1. Severe bilateral pneumonia. 2. Small bilateral pleural effusions. 3. Opacification of the right lower lobe bronchus, consistent with mucous plugging. 4. Small amount of ascites. 5. Severe abdominal subcutaneous edema. 6. Findings discussed with Dr. Brandt on 12.26.16 at 1439 hrs. Dictated by: Calvin Bonds M.D. on 12/26/2016 at 14:27 CT BRAIN WITHOUT CONTRAST IMPRESSION: 1. No acute intracranial abnormality. Dictated by: Chris Heredia M.D. on 12/26/2016 at 8:25 CT ABDOMEN AND PELVIS WITHOUT CONTRAST IMPRESSION: 1. Suboptimal examination due to lack of oral and intravenous contrast. 2. There is total colectomy and right lower quadrant ileostomy. Mild concentric thickening of a short segment of small bowel loop is noted in the right lower quadrant. There is decreased overall small bowel distention compared to 2016. 3. A small amount of free peritoneal fluid, which is new. 4. Small bilateral pleural effusions with bibasilar consolidation or atelectasis. Cannot rule out bibasilar pneumonia. 5. Diffuse body wall edema and subcutaneous fluid collection with pockets of subcutaneous gas. Cannot rule out postoperative wound infection. 6. There is mesenteric and retroperitoneal lymphadenopathy, which is nonspecific. The result was discussed with Dr. Valdez on 12/24/2016 at 1405 hours. Dictated by: More Woodard M.D. on 12/24/2016 at 13:01 US VENOUS ARM DUPLEX UNILATERAL, LEFT IMPRESSION: 1. The basilic vein is not identified otherwise no definite venous thrombosis seen. Dictated by: Jimmy ESCALANTE Interpreted: Dominic Joyce MD on 12/23/2016 at 17 :07 US ABDOMEN, LIMITED IMPRESSION: Multiple stones in the gallbladder but no free air or changes to indicate acute cholecystitis. Dictated by: Esteban Cabrera M.D. on 12/18/2016 at 19:49 X-RAY ACUTE ABDOMINAL SERIES IMPRESSION: Changes are consistent with partial or early small bowel obstruction. Dictated by: Esteban Cabrera M.D. on 12/18/2016 at 20:37 CT ABDOMEN AND PELVIS WITHOUT CONTRAST IMPRESSION: 1. Free air is not identified. 2. Markedly distended colon suggesting distal colonic obstruction. Rectal tube may be of benefit. 3. Question of low-density stones versus particles of air in the gallbladder. Ultrasound is suggested. ADDENDUM: Additional information is that the patient has had a colectomy. The distended loops therefore must be small bowel. In addition there is an ileostomy rather an ileal loop into the right lower quadrant. In the operative from this is reportedly fairly good. This would indicate that C. dilated small bowel loops are related to a chronic low-grade obstruction or a relatively acute high-grade obstruction. No wall thickening or air in the tsai of the dilated loops is seen. Since the patient does not have obstructive symptoms clinically this is likely to be a distended loops from chronic partial low grade obstruction of a small bowel loop. Dictated by: Esteban Cabrera M.D. on 12/18/2016 at 18:44 . Cardiac Echo Impressions Echocardiogram Interpretation Summary: The left ventricle is normal in size. The ejection fraction is estimated to be 30-35%. Except basal LV segments and apical segments which have preserved or slightly increased contractility, rest all the mid LV segments are severey hypokinetic to akinetic. This pattern favors atypical stress induced cardiomyopathy. The right ventricle is normal size.Right ventricular systolic function is at the lower limits of normal. There is moderate mitral regurgitation. There is mild to moderate tricuspid regurgitation. Right ventricular systolic pressure is estimated to be 25 mmHg plus the clinically estimated CVP which cannot be estimated on this exam. There are small-sized bilateral pleural effusions noted. The patient was in sinus bradycardia with heart rates between 57-58 bpm during the exam. . Additional Diagnostics Bronchoscopy FINDINGS: Normal appearing airways. Fluid is blood-tinged on the right and yellowish orange on the left, not consistent with alveolar hemorrhage. Samples of right upper lobe anterior segment, BAL and lingular BAL were both pooled, approximately 60 cc total. TESTING: BAL was pooled and sent for bacterial, fungal, AFB, pneumocystis, viral cultures, as well as cytology and cell count with differential. Loraine Vo MD 12/26/16 1524 Limited ileoscopy with stoma balloon dilatation under fluoroscopy: ENDOSCOPIC DIAGNOSES: 1. Severe stomal stenosis. 2. 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 3. Successful stomal dilatation to 12 mm. RECOMMENDATIONS: 1. After again cleaning the skin, application of the ostomy bag is to be performed in the ICU. 2. Continue full liquid diet. 3. As long as there are no apparent hemorrhagic complications, I think it would be fine to continue the fondaparinux this evening. 4. Dr. Abbott is planning on placing the right IJ for central access this evening and once this is in position, TPN should immediately be Kirby Valdez MD 12/24/16 9342 . Assessment & Plan Terra Beauchamp is a 31-year-old female with a complex past medical history significant for Crohn's disease status post total proctocolectomy with end ileostomy performed at [facility] in [place], [place]. She is on chronic glucocorticoids and Humira, with multiple prior obstructions and near obstructions, recurrent flares, and recent left UE DVT secondary to PICC placement for TPN, who presented to [facility] on 12/18/2016 with generalized abdominal pain, worse in the LLQ, associated with nausea and vomiting likely secondary to chronic partial low-grade small bowel obstruction from stenotic stoma who later in her hospitalization developed acute hypoxemic respiratory failure now status post requiring intubation x 5 days now extubated. Hospital day #15. 1. Acute hypoxemic respiratory failure, not present on admission. Active. - The patient became increasingly dyspneic and hypoxemic requiring intubation x 5 days now extubated. - Likely multifactorial and secondary to ARDS from TPN administration and capillary leak from increased albumin with some contribution from cardiogenic pulmonary edema from newly diagnosed stress cardiomyopathy. - Chest x-ray revealed improved bilateral pulmonary edema, as above. - CT chest without contrast revealed severe bilateral pneumonia and right bronchus opacification consistent with mucus plugging, as above. - Echocardiogram revealed stress induced cardiomyopathy with an EF of 30%-35%, as above. - Discontinued diuresis with Lasix gtt as patient had good diuretic response and was volume overloaded with net +11L now down to 5.6L. Dobutamine was used for blood pressure support during diuresis but continuing for stress induced cardiomyopathy. - BAL performed revealed normal appearing airways, as above. BAL respiratory viral PCR negative. BAL legionella and acid-fast bacillus negative. BAL PCP and CMV pending, as above. - Fungal blood cultures negative to date, as above. - Ordered serum CMV PCR, pending. - Speech evaluation to assess for aspiration, pending. - Continue ventilator with settings, as above. - Continue to monitor ABG. - Continue BiPAP on AVAPS mode with intermittent breaks to oxymask to allow cough and expectoration of sputum. Titrate slowly off BiPAP as tolerated. - Discontinued Lasix gtt as patient had significant diuretic response of over 2L but developed a contraction alkalosis. Starting acetazolamide to continue diuresis for pulmonary edema and to better avoid contraction alkalosis. 2. 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 Active. - Echocardiogram revealed stress induced cardiomyopathy with an EF of 30-35%, however, when reviewed by Dr. Yeung of cardiology the EF is closer to 25-30%. - Discontinued Lasix gtt as patient had significant diuretic response of over 2L but developed a contraction alkalosis. Starting acetazolamide for diuresis and to avoid contraction alkalosis. - Continue dobutamine for stress induced cardiomyopathy and cardiac cachexia per cardiology and DO NOT DISCONTINUE. - May need to repeat echocardiogram in futrure to assess for improvement of her stress induced cardiomyopathy. - Cardiology consulted and following. We appreciate their time and care of the patient. 3. Distal terminal ileal enteroenteric fistulae, acuity unknown, present on admission. Active. - The patient presented complaining of generalized abdominal pain, worse in the LLQ, associated with nausea and vomiting. - At least one enteroenteric fistula visualized please see endoscopy note for details, as above. - The patient will likely need revision of stenotic stoma and fistulae in the future once nutritional status is improved. - Continue fentanyl gtt for pain control, as above. - GI consulted and following. We appreciate their time and care of the patient. - Surgery consulted and following. We appreciate their time and care of the patient. 4. Chronic partial low-grade small bowel obstruction, present on admission. Resolved. - Likely secondary to stenotic ileostomy stoma status post dilatation. - CT abdomen and pelvis without contrast on admission revealed distended loops from probable chronic partial low-grade small bowel obstruction. Repeat CT abdomen and pelvis without contrast showed decreased small bowel distention, as above. - Continue TPN and advance to goal with addition of micronutrients. Per discussion with Surgery and GI, discontinued TF as patient has continued abdominal pain and had severe small bowel dilatation which has improved but could potentially turn into a surgical emergency with TF. - GI performed endoscopy with successful 12 mm stomal dilatation see endoscopy note for details, as above. - GI consulted and following. We appreciate their time and care of the patient. - Surgery consulted and following. We appreciate their time and care of the patient. 5. Acute on chronic microcytic anemia, present on admission. Active. - Acute portion most likely dilutional due as she was net +11 L and chronic portion likely from severe malnourishment causing multiple vitamin deficiencies and likely bone marrow suppression. - Received 2 units of PRBC to date during this admission. - No overt signs of bleeding. Continue to monitor hemoglobin and hematocrit daily. 6. Acute thrombocytopenia, not present on admission. Resolved. - Likely partly dilutional and possibly from bone marrow suppression from severe malnourishment. - Platelet count trending up. Lowest count 33. - Continue to monitor platelet count daily. Chronic problems per primary team: 7. Chronic Crohn's disease status post colectomy and ileostomy with stomal stenosis, present on admission. Active. - Patient is immunocompromised due to Humira and steroids for Crohn disease. Continue hydrocortisone 50 mg every 8 hours for steroid stress dosing. - The patient will likely need revision of stenotic stoma and fistulae in the future once nutritional status is improved. - Humira has been held during acute illness. - GI consulted and following. We appreciate their time and care of the patient. 8. Chronic severe protein calorie malnutrition, present on admission. Active. - Patient is not a PEG tube candidate per GI but has previously been noncompliant with Dobhoff due to discomfort and anxiety therefore options for feeding are limited to TPN currently. - Continue TPN and advance to goal. Per discussion with Surgery and GI discontinued TF as patient has abdominal pain and severe small bowel dilatation as above. - Discontinued albumin 25 g IV every 8 hours. - The patient will need a tunneled catheter for bed bug exterminator TPN likely tomorrow. 9. Recent upper extremity DVT, not present on admission. Resolved. - Ultrasound did not show definite DVT, as above. - Anticoagulation with Fondaparinux discontinued as patient received sufficient course of anticoagulation for UE DVT in October after PICC line placement. 10. Anxiety and depression, present on admission. Active. - Patient's anxiety and depression are related to disease condition but causing significant morbidity none the less. - Continue Klonopin 0.5mg BID and Fluoxetine 20 mg daily. 11. Likely acute thrush, present on admission. - Secondary to prednisone usage. - Will plan to treat with Nystatin suspension. Disposition: Guarded as the patient has significant comorbidities. . GI Prophylaxis: H2 luis carlos VTE Prophylaxis: Sub-Q Heparin (Unfractionated) VTE Mechanical Devices: Intermittant Pneumatic CD Resuscitation Status: CPR: Attempt Resuscitation Attending Statement I have seen and examined this patient with the resident physician. Vital signs , labs, imaging have been reviewed. I agree with the assessment and plan above. Please refer to my separately dictated progress note for any modifications to above. Loraine Vo M.D. Pulmonary and Critical Care medicine Pager [phone] Dania Brandt DO Jan 01, 2017 08:29 Loraine Vo MD Jan 02, 2017 13:41
[2017-01-01] MEDS: TRIMETHOPRIM SULFA IV SCH (11:19)
[2017-01-01] MEDS: DEXTROSE 5% IV SCH (11:19)
--- NOTE | 2017-01-01 11:37 | PROG NOTE ---
[address] [address] PROGRESS NOTE PATIENT: MAE FLEIZ : 1985 MR#: [id number] ADMIT: 12/18/2016 JOB ID: [id number] DATE: 01/01/2017 PULMONARY CRITICAL CARE PROGRESS NOTE: The patient is a 31-year-old woman with history of severe Crohn's disease, status post colectomy, complicated by ileostomy, stenosis, immunocompromised with Humira and steroids, admitted to the ICU with acute hypoxic respiratory failure and ARDS. The patient was seen and evaluated with resident physician, Dania Brandt DO. Please refer to her separate detailed note for additional information. INTERVAL HISTORY: She was doing poorly yesterday from a respiratory standpoint, but improved with the addition of dobutamine and Lasix and stabilized on BiPAP. She looks and feels better today. She has minimal abdominal pain that seems stable compared to her baseline. REVIEW OF SYSTEMS: As above. Positive for shortness of breath and abdominal pain. No fevers or chills. Vital signs reviewed. She is on 40% FiO2 on BiPAP on AVAPS, i.e. volume controlled BiPAP, and doing well. Chest: She has bilateral rhonchi, but these seem improved compared to yesterday. Heart: Regular rate, rhythm. No lower extremity edema. LABORATORIES: Reviewed. Notable for potassium of 2.2, bicarb of 32. LFTs remain mildly elevated. Chest x-ray shows significant improvement in bilateral dense consolidation that was hilar and basilar predominant. ASSESSMENT AND RECOMMENDATIONS: 1. Acute hypoxic respiratory failure - currently on BiPAP. 2. Acute respiratory distress syndrome. 3. Takotsubo cardiomyopathy, ejection fraction 30%. 4. Metabolic alkalosis/contraction alkalosis. 5. Severe protein calorie malnutrition. 6. Crohn's disease, on immunosuppression with Humira and steroids. 7. Upper extremity peripherally inserted central catheter-associated deep venous thrombosis - completed two months of fondaparinux. 8. Severe hypoalbuminemia. 9. Hypokalemia. She has been on a Lasix drip overnight, as well as back on dobutamine. BiPAP seems to have helped her respiratory status as well. Chest x-ray shows significant improvement today. We stopped the Lasix drip because of severe hypokalemia, as well as metabolic alkalosis. I would like to give her acetazolamide or Diamox today to avoid raising her bicarb so significantly, because this will invariably cause respiratory depression as she tries to correct her pH. As discussed before, her respiratory failure seems to be secondary to a combination of cardiogenic pulmonary edema, capillary leak secondary to total parenteral nutrition and sudden changes in oncotic pressure. She has responded to diuresis as I described above. She does need long-term central venous access catheter for total parenteral nutrition administration, but I spoke with Dr. Peres with surgery, and we decided to hold off because respiratory status is only just starting to stabilize. Will reassess for her to have her [place] done tomorrow instead. She can get breaks from BiPAP as needed. She is on appropriate deep venous thrombosis and gastrointestinal prophylaxis. CRITICAL CARE TIME: 45 minutes.
--- NOTE | 2017-01-01 12:08 | PCM.PNMED ---
Subjective Date of Service Jan 01, 2017 Subjective Overnight patient remained on BiPAP, this morning she denies being in any increased discomfort, energy appears to be elevated as moving around in bed trying to find comfort. Attempts to remove BiPAP mask to speak, is able to give more than 1 word answers. Respirations were recorded as being mostly in the low 20s overnight, with oxygen saturations are maintaining themselves in the high 90s. Exam Vital Signs Vital Sign - Last Date Time Temp Pulse Resp B/P Pulse Ox O2 Delivery O2 Flow Rate FiO2 01/01/17 08:00 CPAP/BIPAP 01/01/17 08:00 83 24 116/68 99 40 01/01/17 08:00 15.00 01/01/17 04:03 37.0 Intake and Output 12/31/16 12/31/16 01/01/17 Cumulative From/Thru 15:00 23:00 07:00 12/18/16 14:54 - 01/01/17 06:17 Intake Total 807 ml 828 ml 90155 ml Output Total 1230 ml 2525 ml 52862 ml Balance -423 ml -1697 ml 2245 ml Intake Oral 8710 ml IV Total 303 ml 338 ml 54102 ml Tube Feeding 482 ml TPN/PPN 504 ml 490 ml 5492 ml Packed Cells 300 ml Tube Irrigant 770 ml Output Urine Total 1050 ml 2100 ml 85118 ml Stool Total 180 ml 425 ml 46587 ml Urine/Stool Mix 700 ml Gastric Drainage Total 775 ml # Voids 1 Exam General: Cachectic woman, more awake today, HEENT: Oropharynx is dry, there is dried blood to the upper lip, unable to appreciate any thrush. Neck: Central venous catheter right internal jugular. No JVD appreciated. Chest & Lungs: Lung castillo were rather clear today, unable to appreciate any rales, rhonchi, wheezing on my exam. normal full chest excursion. Cardiovascular: RRR, no murmurs noted Pulses: radial pulses bilaterally, dorsalis pedis present and equivalent bilaterally. Abdomen: Non-distended, soft, nontender, ileostomy in place, stoma free of erythema and leakage, scattered echymosis and scarring over her abdomen. Extremities: Cool. trace edema to BL LE. Compression stockings in place. Skin: Dry cracking skin diffusely on back and extremities, early pressure ulcer changes on sacrum and iliac. Abrasions to back and legs Taylor catheter in place Neuro: Able to move her extremities on her own volition, Musculoskeletal: Upper extremity flexion and extension from laying position are 5 out of 5, able to lift legs off the bed against resistance dorsiflex and plantarflex foot 5 out of 5. Rehab Assistant strength is equal bilaterally IVs and Medications Medications Reviewed: Medications were reviewed in detail Lab and Diagnostics Result Diagram: 01/01/17 0450 01/01/17 0450 Microbiology Stool PCR negative. Urine culture grew mixed urogenital floor. MRSA screen negative. BAL respiratory viral PCR negative. BAL Legionella, acid-fast bacillus, PCP, CMV all pending. Blood culture 2 has no growth after 5 days. Blood fungal culture 2 pending. . X-Rays, CTs and MRIs Chest x-ray performed 12/31/2016 -imaging was reviewed personally in detail IMPRESSION: Worsening pulmonary edema versus diffuse bilateral inflammatory process. ARDS cannot be excluded. Dictated by: Jimmy ESCALANTE Interpreted: Keeley Bethea MD on 12/31/2016 at 9:13 Chest x-ray performed 12/29/2016 IMPRESSION: Pulmonary edema and/or diffuse bilateral pneumonia not significantly changed. ARDS cannot be excluded. Dictated by: Jimmy ESCALANTE Interpreted: More Woodard MD on 12/30/2016 at 10:27 Chest X-ray performed 12/29/16 IMPRESSION: Pulmonary edema and/or diffuse bilateral pneumonia not significant changed. ARDS cannot be excluded. Dictated by: Jimmy ESCALANTE Interpreted: Keeley Bethea MD on 12/29/2016 at 8:58 Portable chest x-ray performed 12/27/2016 IMPRESSION: 1. Persistent bilateral airspace consolidation with a perihilar predominance as well as left retrocardiac consolidation. Findings most likely represent pneumonia including from atypical etiologies. 2. Persistent bilateral pleural effusions. Chest CT without contrast performed 12/26/2016 IMPRESSION: 1. Severe bilateral pneumonia. 2. Small bilateral pleural effusions. 3. Opacification of the right lower lobe bronchus, consistent with mucous plugging. 4. Small amount of ascites. 5. Severe abdominal subcutaneous edema. 6. Findings discussed with Dr. Brandt on 12.26.16 at 1439 hrs. Dictated by: Calvin Bonds M.D. on 12/26/2016 at 14:[address] without contrast performed 12/26/2016 IMPRESSION: 1. No acute intracranial abnormality. Dictated by: Chris Heredia M.D. on 12/26/2016 at 8:25 CT ABDOMEN AND PELVIS WITHOUT CONTRAST IMPRESSION: 1. Free air is not identified. 2. Markedly distended colon suggesting distal colonic obstruction. Rectal tube may be of benefit. 3. Question of low-density stones versus particles of air in the gallbladder. Ultrasound is suggested. ADDENDUM: Additional information is that the patient has had a colectomy. The distended loops therefore must be small bowel. In addition there is an ileostomy rather an ileal loop into the right lower quadrant. In the operative from this is reportedly fairly good. This would indicate that C. dilated small bowel loops are related to a chronic low-grade obstruction or a relatively acute high-grade obstruction. No wall thickening or air in the tsai of the dilated loops is seen. Since the patient does not have obstructive symptoms clinically this is likely to be a distended loops from chronic partial low grade obstruction of a small bowel loop. Dictated by: Esteban Cabrera M.D. on 12/18/2016 at 18:44 US ABDOMEN, LIMITED IMPRESSION: Multiple stones in the gallbladder but no free air or changes to indicate acute cholecystitis. Dictated by: Esteban Cabrera M.D. on 12/18/2016 at 19:49 X-RAY ACUTE ABDOMINAL SERIES IMPRESSION: Changes are consistent with partial or early small bowel obstruction. Dictated by: Esteban Cabrera M.D. on 12/18/2016 at 20:37 Cardiac Echo Impressions Echocardiogram Interpretation Summary: The left ventricle is normal in size. The ejection fraction is estimated to be 30-35%. Except basal LV segments and apical segments which have preserved or slightly increased contractility, rest all the mid LV segments are severey hypokinetic to akinetic. This pattern favors atypical stress induced cardiomyopathy. The right ventricle is normal size.Right ventricular systolic function is at the lower limits of normal. There is moderate mitral regurgitation. There is mild to moderate tricuspid regurgitation. Right ventricular systolic pressure is estimated to be 25 mmHg plus the clinically estimated CVP which cannot be estimated on this exam. There are small-sized bilateral pleural effusions noted. The patient was in sinus bradycardia with heart rates between 57-58 bpm during the exam. Cardiac Echo Impressions Echocardiogram Interpretation Summary: The left ventricle is normal in size. The ejection fraction is estimated to be 30-35%. Except basal LV segments and apical segments which have preserved or slightly increased contractility, rest all the mid LV segments are severey hypokinetic to akinetic. This pattern favors atypical stress induced cardiomyopathy. The right ventricle is normal size.Right ventricular systolic function is at the lower limits of normal. There is moderate mitral regurgitation. There is mild to moderate tricuspid regurgitation. Right ventricular systolic pressure is estimated to be 25 mmHg plus the clinically estimated CVP which cannot be estimated on this exam. There are small-sized bilateral pleural effusions noted. The patient was in sinus bradycardia with heart rates between 57-58 bpm during the exam. . Additional Diagnostics Arterial blood gas 01/01/2017 9:08 AM PH 7.5 PCO2 47 PCO2 34.5 HCO3 37.4 FiO2 35% on BiPAP Bronchoscopy FINDINGS: Normal appearing airways. Fluid is blood-tinged on the right and yellowish orange on the left, not consistent with alveolar hemorrhage. Samples of right upper lobe anterior segment, BAL and lingular BAL were both pooled, approximately 60 cc total. TESTING: BAL was pooled and sent for bacterial, fungal, AFB, pneumocystis, viral cultures, as well as cytology and cell count with differential. Loraine Vo MD 12/26/16 3300 Limited ileoscopy with stoma balloon dilatation under fluoroscopy: ENDOSCOPIC DIAGNOSES: 1. Severe stomal stenosis. 2. 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 3. Successful stomal dilatation to 12 mm. RECOMMENDATIONS: 1. After again cleaning the skin, application of the ostomy bag is to be performed in the ICU. 2. Continue full liquid diet. 3. As long as there are no apparent hemorrhagic complications, I think it would be fine to continue the fondaparinux this evening. 4. Dr. Abbott is planning on placing the right IJ for central access this evening and once this is in position, TPN should immediately be Kirby Valdez MD 12/24/16 3977 . Assessment & Plan Terra Beauchamp is an 31 year old woman that recently moved to the [facility] from [facility] with a complex history of Crohn's disease s/p total proctocolectomy with end ileostomy performed at [facility] in [place], [place]. She is on chronic glucocorticoids with Humira therapy, multiple prior obstructions/near obstructions near ostomy, recurrent flares, and recent left UE DVT secondary to PICC placement for TPN, who presented to the ED 2016 with acute on chronic diffuse abdominal pain, vomiting, and nausea. on hospital day 7 patient developed acute hypoxic respiratory failure and was transferred to the ICU. Hospital day 15 ICU, day 9 was on a ventilator for 5 days, Antibiotics/Antifungal day 6 1. Acute hypoxemic respiratory failure, not present on admission. Stable - Most likely due to fluid overload evidenced on x-ray has diffuse edema however , ARDS with capillary leak, fungal or atypical infection, cardiac etiology, and refeeding syndrome are differentials. - Chest x-ray today showed improvement in pulmonary edema. X-ray Imaging personally reviewed. - BiPAP overnight tolerated well, proceed with weaning trials, attempt weans as tolerated - Cardiac etiology :Echocardiogram: Ejection fraction 25-30%, stress-induced cardiomyopathy, cardiac cachexia. - Infectious etiology: Chest CT without contrast demonstrated Severe bilateral pneumonia, small bilateral pleural effusions, opacifications consistent with mucous plugging, STOP Zosyn and continue Bactrim IV prophylaxis for pneumocystis per Infectious Disease, patient unable to swallow pills. Bronchoscopy completed, no gross abnormalities. Serologies remain negative. Awaiting cytology results. Fungal blood cultures 2 remain negative Fungal Antibodies = Elevated, rechecking that Zosyn has been discontinued. May be false positive secondary to Zosyn. Continue Cresemba per ID. Histo, Legionella urine antigen negative. HIV screen = negative Serum CMV PCR - pending LDH elevated on recheck. - Renal Etiology - Urine protein negative, - Autoimmune panel negative - Infectious disease, cardiology, critical care pulmonology, general surgery, and gastroenterology following in consultation on the case. We appreciate their time, evaluation, and recommendations. - Will monitor I&O's closely. - ABGs with changes in respiratory status. 2. Acute systolic congestive heart failure, not present on admission, management ongoing. - Echocardiogram reevaluation by Dr. Yeung stated ejection fraction 25-30%, stress- induced cardiomyopathy, and cardiac cachexia. - Continue dobutamine drip - Continue gentle diuresis. Stop furosemide. Start Acetazolamide, 500 mg IV daily. Concern for contraction alkalosis. - In regards to concern for vesicoenteric fistula, GI consult states pressure gradient would favor fecal matter in urine rather than urine and fecal matter, urine remains clear. - Cardiology is consulted and following 3. Acute hypokalemia, not present on admission,worsened. - Decreased substantially overnight, stop furosemide as above. Start Acetazolamide as above. - Consider spironolactone - Continue to monitor with BMP and replete as needed. 4. Acute anemia, not present on admission. Unstable. - Hemoglobin continues to trend down this morning 01/01/17, worsening from yesterday. - Fluid status has improved. NO bleeding or ecchymosis. - 2 units of packed red blood cells were transfused, this in conjunction with diuresis has brought her hemoglobin to greater than 10 (12/25/16) - Recheck with PM labs, Consider to replenish if <7.0. 5. Acute transaminitis, not present on admission, worsening. - ALT and AST tripled on 12/31/2016, continue to rise overnight. - Potential causes include TPN, Bactrim, and hepato congestion due to when Dobutamine was briefly held overnight before they [place]alea. - Pharmacy is reviewing medication lists. - Continue to monitor. 6. Crohn's disease with RLQ high output Ileostomy with severe protein/calorie malnutrition, present on admission, Stable. - Continue prednisone, hold Humira. 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 - TPN for a total of 110-120% daily caloric requirements. Additional micronutrients added. - Gen. surgery has been consulted for Groshong catheter for long-term TPN patient still fragile will place once patient is a little stronger to tolerate the procedure. - Based on gastroenterology's recommendations we have low threshold to repeat abdominal x-ray with increased pain/or mild distention. 7. Acute aspiration, not present on admission, not active - Patient was receiving oral food, she began to cough and it was perceived that she was aspirating. - Infectious disease was notified, patient restarted on Zosyn IV, she has completed 3 days. STOPPED Zosyn today. - Will plan for speech therapy to evaluate today pending improvement with Osiris gerarod. 8. Thrombocytopenia, acute, not present on admission. Resolved. - Concern for HIT. - She continues on a stress dose of hydrocortisone decreased from 100 mg every 8 hours on 3/24/17 to 50mg every 8 hours on 12/26/16 - Heparin Antibodies - 0.070 within normal limits - Fondaparinux has been discontinued. She has completed 2 full months of treatment. 9. Fever, acute - resolved. - Remained afebrile. - Zosyn discontinued.On Bactrim prophylactically due to immunosuppressed state. - Infectious disease continues to consult and we appreciate Dr. Bynum's expertise. 10. Hypovolemic hyponatremia, chronic, present on admission - resolved. - Patient's volume status has been repleted, sodium has returned to normal levels. - Continue to monitor BMP. 11. Abdominal pain in the setting of Crohn's disease s/p total proctocolectomy with RLQ ileostomy, acute, present on admission - Likely due to strictures and obstruction and enteroenteric fistula. - Abdominal pain is chronic, currently controlled with analgesics. - Continue to monitor. 12. Early or partial small bowel obstruction, acute, present on admission - Most recent abdominal imaging shows evidence of developing small bowel obstruction and other strictures. She is still having high ostomy output, although mostly just liquids. Status post stomal dilation December 24 - GI consulted, will continue to follow, appreciate time and input. - Surgery consulted and following. Appreciate time and input. - Patient receiving TPN and tolerating this so far. 13. Hypochromic microcytic anemia, likely iron deficiency, chronic, present on admission - Due to poor oral intake and poor nutritional status - Consider iron supplementation as outpatient - Continue to monitor CBC. 14. Anxiety and Depression, POA - Patient's anxiety and depression are related to significant chronic disease condition, but creating significant morbidity none the less. - Continue lorazepam 0.5 mg IV push PRN q3H. 15. Likely Oral Candidiasis, improved. - Secondary to Prednisone usage and - Continue to monitor closely. - Nystatin being given PO BID. - Antiemetic available PRN. Disposition: Anticipate several more days in the CCU due to low blood pressures necessitating pharmacologic IV support. Hospital course difficult to anticipate , may require transfer to tertiary receiving facility. CODE STATUS: Full code Case was discussed with critical care (Dr. Shona Vo) and Infectious Disease ( Dr. Bynum). Pain Evaluation: Adequate Pain Control GI Prophylaxis: H2 luis carlos VTE Prophylaxis: Sub-Q Heparin (Unfractionated) VTE Mechanical Devices: Intermittant Pneumatic CD Resuscitation Status: CPR: Attempt Resuscitation Time spent 1 hour. Attending Statement The patient was seen and examined together with Dr. Couch on 01/01/17 and I have added additional information to the note above. Humberto Couch DO Jan 01, 2017 12:08 Trena Lauren DO Jan 02, 2017 14:23 Humberto Couch DO Jan 01, 2017 12:08
--- NOTE | 2017-01-01 12:22 | PROG NOTE ---
[address] [address] PROGRESS NOTE PATIENT: MAE FELIZ : 1985 MR#: [id number] ADMIT: 12/18/2016 JOB ID: [id number] DATE: 01/01/2017 NARRATIVE: The patient has been successfully extubated, and I have discussed the plan for a left Groshong catheter for her for long-term TPN. She agrees to proceed. However, I have reviewed her case with Dr. Vo on the CCU team. Dr. Vo feels that since her respiratory status is borderline and she currently has IV access, that it would be best to hold off placing her Groshong catheter for a few days. We will revisit the idea of a Groshong catheter for long-term TPN to build her up for surgery for over the weekend.
[2017-01-01] MEDS: DOBUTamine 500 mg/250 D5W 500,000 MCG in IV Premix 1 EACH IV SCH (13:31)
--- NOTE | 2017-01-01 15:38 | PCM.PNMED ---
Subjective Date of Service Jan 01, 2017 Subjective GASTROENTEROLOGY PROGRESS NOTE Morning evaluation revealed a comfortable appearing Ms. Beauchamp, tolerating BPAP well. Admits to continued abdominal pain but states improved compared to yesterday. States her breathing is also better. States that she is thirsty. No family present this morning. Patient denies any nausea or vomiting. Able to follow commands well, and move 4/4 extremities. She laughs at her left wrist, as it is quite ecchymotic. She states she feels better today compared to previous days. Exam Vital Signs Vital Sign - Last Date Time Temp Pulse Resp B/P Pulse Ox O2 Delivery O2 Flow Rate FiO2 01/01/17 08:00 CPAP/BIPAP 01/01/17 08:00 91 29 109/76 100 15.00 01/01/17 05:16 45 01/01/17 04:03 37.0 Intake and Output 12/31/16 12/31/16 01/01/17 Cumulative From/Thru 15:00 23:00 07:00 12/18/16 14:54 - 01/01/17 06:17 Intake Total 807 ml 828 ml 36395 ml Output Total 1230 ml 2525 ml 29150 ml Balance -423 ml -1697 ml 2245 ml Intake Oral 8710 ml IV Total 303 ml 338 ml 16237 ml Tube Feeding 482 ml TPN/PPN 504 ml 490 ml 5492 ml Packed Cells 300 ml Tube Irrigant 770 ml Output Urine Total 1050 ml 2100 ml 28612 ml Stool Total 180 ml 425 ml 26353 ml Urine/Stool Mix 700 ml Gastric Drainage Total 775 ml # Voids 1 Exam General: Frail, cachetic; on BPAP in CCU; no distress noted this morning Head: Atraumatic; cushinoid-facies; sclera anicteric Neck: Right IJ in place with bandages clean/dry and intact with minimal leakage Nose: Mucous Membr Moist/[place] Mouth: Mucous Membr dry; ETT/OGT in place and secured Chest & Lungs: Adequate air flow; faint coarse sounds, but improved Cardiovascular: Tachycardic at time of evaluation with rate approx 90-100 Pulses: Radial (equal and bilateral) Abdomen: Mildly tender, soft; ostomy site free of erythema; output liquid green -brown dark stool with gas, no evidence edy blood; hypoactive sounds continue : Taylor present and secured Extremities: Warm; no edema noted BLLE, compression socks and SCDs in place, without noted edema proximal to SCD; BLUE edema resolved; ecchymosis left wrist Skin: Warm and dry Neurological: CNII-XII grossly intact; answers questions appropriately Psych: Appropriate mood, affect, and responses to questioning; limited insight and judgment based on history of noncompliance Lab and Diagnostics Result Diagram: 01/01/17 0450 01/01/17 0450 Microbiology Stool PCR negative. Urine culture grew mixed urogenital floor. MRSA screen negative. BAL respiratory viral PCR negative. BAL Legionella, acid-fast bacillus, PCP, CMV all pending. Blood culture 2 has no growth after 2 days. Blood fungal culture 2 pending. . X-Rays, CTs and MRIs Chest x-ray performed 12/31/2016 -imaging was reviewed personally in detail IMPRESSION: Worsening pulmonary edema versus diffuse bilateral inflammatory process. ARDS cannot be excluded. Dictated by: Jimmy ESCALANTE Interpreted: Keeley Bethea MD on 12/31/2016 at 9:13 Chest x-ray performed 12/29/2016 IMPRESSION: Pulmonary edema and/or diffuse bilateral pneumonia not significantly changed. ARDS cannot be excluded. Dictated by: Jimmy ESCALANTE Interpreted: More Woodard MD on 12/30/2016 at 10:27 Chest X-ray performed 12/29/16 IMPRESSION: Pulmonary edema and/or diffuse bilateral pneumonia not significant changed. ARDS cannot be excluded. Dictated by: Jimmy ESCALANET Interpreted: Keeley Bethea MD on 12/29/2016 at 8:58 Portable chest x-ray performed 12/27/2016 IMPRESSION: 1. Persistent bilateral airspace consolidation with a perihilar predominance as well as left retrocardiac consolidation. Findings most likely represent pneumonia including from atypical etiologies. 2. Persistent bilateral pleural effusions. Chest CT without contrast performed 12/26/2016 IMPRESSION: 1. Severe bilateral pneumonia. 2. Small bilateral pleural effusions. 3. Opacification of the right lower lobe bronchus, consistent with mucous plugging. 4. Small amount of ascites. 5. Severe abdominal subcutaneous edema. 6. Findings discussed with Dr. Brandt on 12.26.16 at 1439 hrs. Dictated by: Calvin Bonds M.D. on 12/26/2016 at 14:[address] without contrast performed 12/26/2016 IMPRESSION: 1. No acute intracranial abnormality. Dictated by: Chris Heredia M.D. on 12/26/2016 at 8:25 CT ABDOMEN AND PELVIS WITHOUT CONTRAST IMPRESSION: 1. Free air is not identified. 2. Markedly distended colon suggesting distal colonic obstruction. Rectal tube may be of benefit. 3. Question of low-density stones versus particles of air in the gallbladder. Ultrasound is suggested. ADDENDUM: Additional information is that the patient has had a colectomy. The distended loops therefore must be small bowel. In addition there is an ileostomy rather an ileal loop into the right lower quadrant. In the operative from this is reportedly fairly good. This would indicate that C. dilated small bowel loops are related to a chronic low-grade obstruction or a relatively acute high-grade obstruction. No wall thickening or air in the tsai of the dilated loops is seen. Since the patient does not have obstructive symptoms clinically this is likely to be a distended loops from chronic partial low grade obstruction of a small bowel loop. Dictated by: Esteban Cabrera M.D. on 12/18/2016 at 18:44 US ABDOMEN, LIMITED IMPRESSION: Multiple stones in the gallbladder but no free air or changes to indicate acute cholecystitis. Dictated by: Esteban Cabrera M.D. on 12/18/2016 at 19:49 X-RAY ACUTE ABDOMINAL SERIES IMPRESSION: Changes are consistent with partial or early small bowel obstruction. Dictated by: Esteban Cabrera M.D. on 12/18/2016 at 20:37 Cardiac Echo Impressions Echocardiogram Interpretation Summary: The left ventricle is normal in size. The ejection fraction is estimated to be 30-35%. Except basal LV segments and apical segments which have preserved or slightly increased contractility, rest all the mid LV segments are severey hypokinetic to akinetic. This pattern favors atypical stress induced cardiomyopathy. The right ventricle is normal size.Right ventricular systolic function is at the lower limits of normal. There is moderate mitral regurgitation. There is mild to moderate tricuspid regurgitation. Right ventricular systolic pressure is estimated to be 25 mmHg plus the clinically estimated CVP which cannot be estimated on this exam. There are small-sized bilateral pleural effusions noted. The patient was in sinus bradycardia with heart rates between 57-58 bpm during the exam. . Additional Diagnostics Arterial blood gas performed 12/31/2016 at 5:56 AM PH 7.49 PCO2 42.4 PO2 66.6 HC03 32.3 Bronchoscopy FINDINGS: Normal appearing airways. Fluid is blood-tinged on the right and yellowish orange on the left, not consistent with alveolar hemorrhage. Samples of right upper lobe anterior segment, BAL and lingular BAL were both pooled, approximately 60 cc total. TESTING: BAL was pooled and sent for bacterial, fungal, AFB, pneumocystis, viral cultures, as well as cytology and cell count with differential. Loraine Vo MD 12/26/16 1524 Limited ileoscopy with stoma balloon dilatation under fluoroscopy: ENDOSCOPIC DIAGNOSES: 1. Severe stomal stenosis. 2. 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 3. Successful stomal dilatation to 12 mm. RECOMMENDATIONS: 1. After again cleaning the skin, application of the ostomy bag is to be performed in the ICU. 2. Continue full liquid diet. 3. As long as there are no apparent hemorrhagic complications, I think it would be fine to continue the fondaparinux this evening. 4. Dr. Abbott is planning on placing the right IJ for central access this evening and once this is in position, TPN should immediately be Kirby Valdez MD 12/24/16 6075 . Assessment & Plan GASTROENTEROLOGY PROGRESS NOTE Ms. Terra Beauchamp is an extremely pleasant 31 year old woman that recently moved to the [facility] from the [facility] with a complex history of Crohn 's disease s/p total proctocolectomy with end ileostomy performed at [facility] in [place], [place]. She is on chronic glucocorticoids with Humira therapy, multiple prior obstructions/near obstructions near ostomy, recurrent flares, and recent left UE DVT secondary to PICC placement for TPN, who presented to the ED 12/18/2016 with acute on chronic diffuse abdominal pain, vomiting, and nausea. 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 - Adrenal insufficiency secondary to chronic steroid use - LUE DVT secondary to PICC placement, completed fondaparinux therapy - Severe protein/calorie malnutrition, BMI 15 on admission, s/p RIJ placement for TPN - CT showing chronic low-grade obstruction. However clinically she is passing gas and passing fecal material. - Abdominal pain; chronic. Likely secondary to chronic, low grade stenosis and po attempts for maximal intake to maintain nutrition Plan/Recommendations for 01/01/2017: - Diuresis per primary team to minimize fluid retention and ongoing improvements in respiratory status - Continue stress dose steroids and antimicrobials as appropriate per primary team - Monitor HH and stool output - If ostomy output begins to decline, and increased distention coincides, indicative for repeat stoma dilatation - Continue TPN; adjust/transition to least hepatotoxic formula - Will reassess LFTs in am; TPN with fat content ideal - Low threshold for repeat abd XR remains - If distention increases, admin NGT to low intermittent suction - OK per GI for patient to advance diet to smoothies when appropriate per ST evaluations; encouraged to eat smoothie consistency foods that she has a taste for if safe - No need for Dobhoff at this time, but if primary team or ICU team feel it is needed, please proceed without hesitation Additional recs/info: - OK to hold Humira for this due dose - Remind patient and mother to provide [facility] records to [facility]/GI - Recommend continued PT evaluation - Had appt with Dr. Dominic Zaidi at on 12/31; cancelled by mother; this will need to be addressed when patient approaches DC, as we may need to assist in arranging FU Additional summary: Patient has history of noncompliance, and removed Dobhoff the day of previous discharge while she was on her way home. Dobhoff was also removed while she was going home after the admission prior to that. Nutrition is essential for her, as she likely requires a complete revision, but her nutritional status is too poor to promote adequate healing. Previous discussions have included SNF. She is not a PEG candidate, as it would likely be more detrimental than beneficial especially because of the poor nutritional status indicated by low albumin. This is have significant impact on wound healing. Tube feeds were anticipated to last at least three months. Due to the history of noncompliance with Dobhoff and need for surgical intervention, TPN is next best choice. This does not come without risk, as her previous TPN site led to a DVT. She is still receiving anticoagulation at this time. Risks of TPN explained to patient, and because her need for nutrition is becoming increasingly critical, it is pursued at this time. TPN carries significant risk of infection, especially with her history of immunosuppression secondary to wool hanker steroids and now Humira use. On 12/24, she was urgently taken to endoscopy for another dilation of stoma, and then transferred to CCU for continued care. She has remained in critical condition with decreased respiratory function requiring mechanical ventilatory support. Diuretics and O2 delivery methods ordered. Cardiology consulted as well, to evaluate EF 30-35, further review likely EF-25. Patient on dobutamine infusion, managed per cardiology. Suspected pathophysiology secondary to oncotic shifts that resulted in pulmonary flash edema after TPN infusion initiated. Diuresis continues prn, gtt DC'd. Patient was extubated 12/30/16 @1555, and later that evening, developed respiratory distress, BPAP was placed. She has much improved , although still requiring BPAP. Concern for vesico-enteric fistula is low, absence of UTI. Again, at this time, deferring respiratory care and diuresis to primary team. OK to start soft/smoothie diet when deemed appropriate and safe per ST evaluations. If she continues to fail ST evaluations, OK to replace Dobhoff for tube feedings. The TPN formula that was utilized in pm 01/01 may not be adequate in terms of fats. We will re-assess LFTs 01/02, and would like to work with nutrition to find a more suitable formula. Total time: 40 minutes GI Prophylaxis: H2 luis carlos VTE Prophylaxis: Sub-Q Heparin (Unfractionated) VTE Mechanical Devices: Intermittant Pneumatic CD Resuscitation Status: CPR: Attempt Resuscitation Attending Statement Patient seen and examined. Agree with assessment and plan as described by Dr Arteaga. Overall, improved from cardiopulmonary standpoint. Mild bump in transaminases noted. TPN formula was adjusted largely eliminating fat content. We'll follow LFTs. Will discuss further with nutrition service. I'd like to see Terra transition back to smoothie consistency diet by mouth but understand she failed a swallow evaluation today. If she does not pass tomorrow , i would recommend dobhoff tube be placed for trickle tube feeds to supplement IV nutrition. Today, still with very hypoactive bowel sounds, but definitely improved when compared to last couple of days. Elissa Arteaga DO Jan 01, 2017 08:30 Kirby Valdez MD Jan 01, 2017 22:23
[2017-01-01] MEDS: 0.9% Sodium Chloride 1,000 ML IV SCH (16:31)
[2017-01-01] MEDS: KCl 40 mEq/100 mL IV Premix (K < 3 & Creat <2) IV SCH ×2 (16:31→20:41)
[2017-01-01] MEDS ORDERED: Magnesium Sulf 2 Gm/50mL Water 2 GM in IV Premix 1 EACH IV ONE (16:35)
[2017-01-01] MEDS: Total Parenteral Nutrition 1 BAG IV SCH (20:41)
[2017-01-02] VITALS (10 sets, daily range): BP systolic 105–127; BP diastolic 75–103; PULSE 91–116; RESP 19–25; O2SAT 92–100
[2017-01-02] MEDS: Hydrocortisone 50 mg/mL 2 mL Inj IVPUSH SCH ×3 (00:07→16:28)
[2017-01-02] MEDS: HYDROmorphone 0.5 mg/0.5 mL iSecure Syringe IVPUSH PRN ×8 (00:08→22:00)
[2017-01-02] MEDS: Heparin 5,000 Unit/mL Inj SUBQ SCH ×3 (00:08→16:30)
[2017-01-02] MEDS: Ondansetron 2 mg/mL 2 mL Inj IVPUSH PRN ×2 (03:09→21:39)
[2017-01-02 03:44] LABS: BASOPHILS % (AUTO) 0.2 % (0-3); EOSINOPHILS % (AUTO) 0 % (0-5); MONOCYTES % (AUTO) 3.5 % (4-12); Mean Corpuscular Hemoglobin 25.3 pg (27.0-35.0); NEUTROPHILS % (AUTO) 92.2 % (40-74); Platelet Count 214 bil/L (150-400)
[2017-01-02 04:03] LABS: Magnesium 2.4 mg/dL (1.6-2.6)
[2017-01-02] MEDS ORDERED: KCl 40 mEq/100 mL Premix (K 3 - 3.7 & Creat < 2) IV ONE (05:00)
[2017-01-02] MEDS: Ipratropium 0.02% 0.5 mg/2.5 mL Inhalation Solution NEB SCH ×2 (05:37→08:30)
[2017-01-02] MEDS: Nystatin 100,000 Unit/mL 5 mL Suspension PO SCH ×2 (07:52→21:21)
[2017-01-02] MEDS: Famotidine Inj 20 MG in IV Premix 1 EACH IV SCH ×2 (07:52→19:58)
[2017-01-02] MEDS ORDERED: DEXTROSE 5% IV ONE (08:55)
[2017-01-02] MEDS ORDERED: ACETAZOLAMIDE IV ONE (08:55)
--- NOTE | 2017-01-02 08:57 | PROG NOTE ---
[address] [address] PROGRESS NOTE PATIENT: MAE FELIZ : 1985 MR#: [id number] ADMIT: 12/18/2016 JOB ID: [id number] DATE: 01/02/2017 INFECTIOUS DISEASE FOLLOW UP NOTE: REASON FOR FOLLOWUP: Pulmonary infiltrates in a patient with a severe malnutrition secondary to Crohn disease. INTERVAL HISTORY: Overnight, the patient reports no fevers or chills. She reports minimal cough and states she thinks her shortness of breath is actually a little better though she is actually requiring a little bit more in the way of active support. She notes she has continued abdominal pain but it is about at baseline. No sinus or other new complaint. PHYSICAL EXAMINATION: Reveals an afebrile woman. Temperature consistently around 37, currently 36.8, pulse 102, respiratory rate 19, blood pressure 123/92, saturating well on 35%. Overall, of course, she appears cachectic as before, but in no acute distress. She is awake, alert, and interactive today. The patient's eyes without conjunctivitis. The right neck central line appears benign. Lungs with crackles bilaterally at the bases. Cardiac tones mildly tachycardic without new murmur. Abdomen is slightly tender diffusely, as it has been with a functioning ileostomy. No skin rash and extreme wasting of the extremities continues. LABORATORIES: Include a white count of 6300, 92% segs. Creatinine is less than 0.3. AST 99, ALT 158, alk phos 160. Urinalysis 6-10 white cells. Repeat Fungitell pending. CMV PCR is still pending. HIV negative. Micro studies were reviewed in detail. We have negative stool and respiratory PCR. A bronch wash was done the . There is still some controversy about the Pneumocystis stain which came back insufficient cells for study. CMV was negative. AFB negative. Legionella negative. Cultures of that bronch wash were not positive and the bronch wash PCR was negative. Blood cultures from the negative. IMAGING: We compared chest x-rays over the past few days. Today it shows more in the way of infiltrate than yesterday's and is similar to one done two days ago on the . My interpretation of these chest x-rays is that there is shifting amounts of fluid within the lungs consistent with cardiogenic and/or noncardiogenic pulmonary edema but not pneumonia as the infiltrates seem to go rapidly back and forth. IMPRESSION: This patient continues to slightly improve on a day-by-day basis. I see no evidence for ongoing infection and believe that her rapidly changing pulmonary infiltrates are on the basis of fluid, be it cardiogenic or noncardiogenic pulmonary edema. She remains at incredibly high risk for serious nosocomial infection given her tremendous wasting, steroids and recent TNF inhibitors. Pneumocystis prophylaxis is indicated. RECOMMENDATIONS: 1. I would continue with the Pneumocystis prophylaxis using one double-strength tablet a day which could be given in a pill form, liquid form or IV. 2. I would continue this until she has been off high-dose steroids for a considerable period of time and I would also continue the Bactrim as long as she remains on TNF inhibitors. 3. I see no active ID issues. The ID team will go ahead and sign off at this time. Thank you very much for involving us in this interesting case.
[2017-01-02] MEDS: TRIMETHOPRIM SULFA IV SCH (09:14)
[2017-01-02] MEDS: DEXTROSE 5% IV SCH (09:14)
--- NOTE | 2017-01-02 09:35 | PCM.PNMED ---
Subjective Date of Service Jan 02, 2017 Subjective Intensive/Pulmonology Progress Note: Attending Dr. Gilda Ellison Quynh is a 31-year-old female with a complex past medical history significant for Crohn's disease status post total proctocolectomy with end ileostomy, on chronic glucocorticoids and Humira, with multiple prior complications including obstructions, recurrent flares, and recent left UE DVT secondary to PICC line placement for TPN, who presented to [facility] Emergency Department on 12/18/2016 with generalized abdominal pain with associated nausea and vomiting likely secondary to chronic partial low- grade small bowel obstruction from stenotic stoma status post dilatation by GI who later in her hospitalization developed acute hypoxemic respiratory failure now status post requiring intubation x 5 days and is now extubated on BiPAP. Hospital day #16. Overnight: The patient had +5 out of 10 abdominal pain and was given Dilaudid with good relief. She continued to be anxious and was given Ativan. Telemetry overnight: Sinus rhythm, heart rate 90's, with runs of sinus tachycardia up to the 130s. Subjective exam and review of systems is somewhat limited due to patients laryngitis and somnolence. She continues to report abdominal pain and mid back pain but reports it is tolerable and well controlled with pain medication. She endorses nausea which is relieved with Zofran. She reports shortness of breath but believes her breathing is improved since yesterday. She denies headache, chest pain, arm or leg pain, or vomiting. . Exam Vital Signs Vital Sign - Last Date Time Temp Pulse Resp B/P Pulse Ox O2 Delivery O2 Flow Rate FiO2 01/02/17 07:22 36.8 102 19 123/92 98 BiPAP 35 01/02/17 05:23 5.00 Intake and Output 01/01/17 01/01/17 01/02/17 Cumulative From/Thru 15:00 23:00 07:00 12/18/16 14:54 - 01/02/17 06:05 Intake Total 1268 ml 921 ml 52529 ml Output Total 1325 ml 700 ml 98042 ml Balance -57 ml 221 ml 2409 ml Intake Oral 8710 ml IV Total 822 ml 472 ml 25982 ml Tube Feeding 482 ml TPN/PPN 446 ml 449 ml 6387 ml Packed Cells 300 ml Tube Irrigant 770 ml Output Urine Total 950 ml 550 ml 14108 ml Stool Total 375 ml 58450 ml Urine/Stool Mix 150 ml 850 ml Gastric Drainage Total 775 ml # Voids 1 # Bowel Movements 1 1 Exam General: Cachetic young female lying in bed and in no acute distress, somnolent. HEENT: Normocephalic, atraumatic. External ears without defect. Pupils equal, round, and reactive to light. Anicteric sclerae, moist conjunctivae, and no lid lag. Cushingoid facies.BiPAP mask in place. Neck: No lymphadenopathy or thyromegaly. Cardiovascular: Regular rhythm, tachycardic, without murmurs, rubs, or gallops appreciated. Pulmonary: Diffuse bronchial breath sounds throughout anterior lung castillo. No crackles or wheezes. Abdomen: Soft, scaphoid, mild tenderness to palpation, nondistended, ostomy in place in mid abdomen with green liquid stool, no hematochezia or melena. Extremities: Bilateral trace pitting edema to ankles bilaterally. No clubbing or cyanosis. Skin: Normal temperature, turgor, and texture; no rash, ulcers, or subcutaneous nodules appreciated. Neurological: Somnolent, hoarse. Vent settings: BiPAP with AVAPS mode TV 400 FiO2 35%. IV lines: Right IJ and left radial peripheral IV. I&O: Net + 2409. . IVs and Medications Medications Reviewed: Medications were reviewed in detail Lab and Diagnostics Item Value Date Time Calcium Level 8.4 mg/dL L 01/02/17 032 Phosphorus Level 2.5 mg/dL 01/02/17 032 Magnesium Level 2.4 mg/dL 01/02/17 032 Total Bilirubin 0.8 mg/dL 01/02/17 0320 Aspartate Amino Transf (AST/SGOT) 99 U/L H 01/02/17 0320 Alanine Aminotransferase (ALT/SGPT) 158 U/L H 01/02/17 0320 Alkaline Phosphatase 160 U/L H 01/02/17 0320 Total Protein 6.1 g/dL L 01/02/17 0320 Albumin 3.5 g/dL 01/02/17 032 Result Diagram: 01/02/17 0320 01/02/17 032 Microbiology Stool PCR negative. Urine culture grew mixed urogenital floor. MRSA screen negative. BAL respiratory viral PCR negative. BAL Legionella, acid-fast bacillus, PCP, CMV all negative. Blood culture 2 has no growth after 5 days. Blood fungal culture 2 negative to date. . X-Rays, CTs and MRIs X-RAY CHEST ONE VIEW, PORTABLE IMPRESSION: Pulmonary edema and/or diffuse bilateral inflammatory process, increased involving the right lung base otherwise no significant change. Small pleural effusions. Dictated by: Jimmy ESCALANTE Interpreted: Keeley Bethea MD on 01/02/2017 at 9:39 CT CHEST WITHOUT CONTRAST IMPRESSION: 1. Severe bilateral pneumonia. 2. Small bilateral pleural effusions. 3. Opacification of the right lower lobe bronchus, consistent with mucous plugging. 4. Small amount of ascites. 5. Severe abdominal subcutaneous edema. 6. Findings discussed with Dr. Brandt on 12.26.16 at 1439 hrs. Dictated by: Calvin Bonds M.D. on 12/26/2016 at 14:27 CT BRAIN WITHOUT CONTRAST IMPRESSION: 1. No acute intracranial abnormality. Dictated by: Chris Heredia M.D. on 12/26/2016 at 8:25 CT ABDOMEN AND PELVIS WITHOUT CONTRAST IMPRESSION: 1. Suboptimal examination due to lack of oral and intravenous contrast. 2. There is total colectomy and right lower quadrant ileostomy. Mild concentric thickening of a short segment of small bowel loop is noted in the right lower quadrant. There is decreased overall small bowel distention compared to 2016. 3. A small amount of free peritoneal fluid, which is new. 4. Small bilateral pleural effusions with bibasilar consolidation or atelectasis. Cannot rule out bibasilar pneumonia. 5. Diffuse body wall edema and subcutaneous fluid collection with pockets of subcutaneous gas. Cannot rule out postoperative wound infection. 6. There is mesenteric and retroperitoneal lymphadenopathy, which is nonspecific. The result was discussed with Dr. Valdez on 12/24/2016 at 1405 hours. Dictated by: More Woodard M.D. on 12/24/2016 at 13:01 US VENOUS ARM DUPLEX UNILATERAL, LEFT IMPRESSION: 1. The basilic vein is not identified otherwise no definite venous thrombosis seen. Dictated by: Jimmy ESCALANTE Interpreted: Dominic Joyce MD on 12/23/2016 at 17 :07 US ABDOMEN, LIMITED IMPRESSION: Multiple stones in the gallbladder but no free air or changes to indicate acute cholecystitis. Dictated by: Esteban Cabrera M.D. on 12/18/2016 at 19:49 X-RAY ACUTE ABDOMINAL SERIES IMPRESSION: Changes are consistent with partial or early small bowel obstruction. Dictated by: Esteban Cabrera M.D. on 12/18/2016 at 20:37 CT ABDOMEN AND PELVIS WITHOUT CONTRAST IMPRESSION: 1. Free air is not identified. 2. Markedly distended colon suggesting distal colonic obstruction. Rectal tube may be of benefit. 3. Question of low-density stones versus particles of air in the gallbladder. Ultrasound is suggested. ADDENDUM: Additional information is that the patient has had a colectomy. The distended loops therefore must be small bowel. In addition there is an ileostomy rather an ileal loop into the right lower quadrant. In the operative from this is reportedly fairly good. This would indicate that C. dilated small bowel loops are related to a chronic low-grade obstruction or a relatively acute high-grade obstruction. No wall thickening or air in the tsai of the dilated loops is seen. Since the patient does not have obstructive symptoms clinically this is likely to be a distended loops from chronic partial low grade obstruction of a small bowel loop. Dictated by: Esteban Cabrera M.D. on 12/18/2016 at 18:44 . Cardiac Echo Impressions Echocardiogram Interpretation Summary: The left ventricle is normal in size. The ejection fraction is estimated to be 30-35%. Except basal LV segments and apical segments which have preserved or slightly increased contractility, rest all the mid LV segments are severey hypokinetic to akinetic. This pattern favors atypical stress induced cardiomyopathy. The right ventricle is normal size.Right ventricular systolic function is at the lower limits of normal. There is moderate mitral regurgitation. There is mild to moderate tricuspid regurgitation. Right ventricular systolic pressure is estimated to be 25 mmHg plus the clinically estimated CVP which cannot be estimated on this exam. There are small-sized bilateral pleural effusions noted. The patient was in sinus bradycardia with heart rates between 57-58 bpm during the exam. . Additional Diagnostics Bronchoscopy FINDINGS: Normal appearing airways. Fluid is blood-tinged on the right and yellowish orange on the left, not consistent with alveolar hemorrhage. Samples of right upper lobe anterior segment, BAL and lingular BAL were both pooled, approximately 60 cc total. TESTING: BAL was pooled and sent for bacterial, fungal, AFB, pneumocystis, viral cultures, as well as cytology and cell count with differential. Loraine Vo MD 12/26/16 1524 Limited ileoscopy with stoma balloon dilatation under fluoroscopy: ENDOSCOPIC DIAGNOSES: 1. Severe stomal stenosis. 2. 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 3. Successful stomal dilatation to 12 mm. RECOMMENDATIONS: 1. After again cleaning the skin, application of the ostomy bag is to be performed in the ICU. 2. Continue full liquid diet. 3. As long as there are no apparent hemorrhagic complications, I think it would be fine to continue the fondaparinux this evening. 4. Dr. Abbott is planning on placing the right IJ for central access this evening and once this is in position, TPN should immediately be Kirby Valdez MD 12/24/16 9308 . Assessment & Plan Terra Beauchamp is a 31-year-old female with a complex past medical history significant for Crohn's disease status post total proctocolectomy with end ileostomy, on chronic glucocorticoids and Humira, with multiple prior complications including obstructions, recurrent flares, and recent left UE DVT secondary to PICC line placement for TPN, who presented to [facility] Emergency Department on 12/18/2016 with generalized abdominal pain with associated nausea and vomiting likely secondary to chronic partial low- grade small bowel obstruction from stenotic stoma status post dilatation by GI who later in her hospitalization developed acute hypoxemic respiratory failure now status post requiring intubation x 5 days and is now extubated on BiPAP. Hospital day #16. 1. Acute hypoxemic respiratory failure, not present on admission. Active. - The patient became increasingly dyspneic and hypoxemic requiring intubation x 5 days now extubated. - Likely multifactorial and secondary to ARDS from TPN administration and capillary leak from increased albumin with some contribution from cardiogenic pulmonary edema from newly diagnosed stress cardiomyopathy. - Chest x-ray revealed stable bilateral pulmonary edema possibly worsening at right base, as above. - CT chest without contrast revealed severe bilateral pneumonia and right bronchus opacification consistent with mucus plugging, as above. - Echocardiogram revealed stress induced cardiomyopathy with an EF of 30-35%, however, when reviewed by Dr. Yeung of cardiology the EF is closer to 25-30%. - Continue dobutamine for stress induced cardiomyopathy and cardiac cachexia per cardiology and DO NOT DISCONTINUE. - BAL performed revealed normal appearing airways and respiratory viral PCR, legionella, acid-fast bacillus, PCP and CMV negative, as above. - Fungal blood cultures negative to date, as above. - Ordered serum CMV PCR, pending. - Speech evaluation to assess for aspiration was trialed and the patient likely silently aspirated with applesauce. She is NPO for now. - Continue to monitor ABG. - Continue BiPAP on AVAPS mode with settings as above and intermittent breaks to oxymask to allow cough and expectoration of sputum. Titrate slowly off BiPAP as tolerated. - Continue acetazolamide 250 mg IV twice a day and low dose of Lasix 20 mg IV x 1 for diuresis of pulmonary edema and to better avoid contraction alkalosis. 2. 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 Active. - Echocardiogram revealed stress induced cardiomyopathy with an EF of 30-35%, however, when reviewed by Dr. Yeung of cardiology the EF is closer to 25-30%. - Continue acetazolamide 250 mg IV twice a day and low dose of Lasix 20 mg IV x 1 for diuresis of pulmonary edema and to better avoid contraction alkalosis. - Continue dobutamine for stress induced cardiomyopathy and cardiac cachexia per cardiology and DO NOT DISCONTINUE. - Will need to repeat echocardiogram in future to assess for improvement of her stress induced cardiomyopathy. - Cardiology consulted and following. We appreciate their time and care of the patient. 3. Distal terminal ileal enteroenteric fistulae, acuity unknown, present on admission. Active. - The patient presented complaining of generalized abdominal pain, worse in the LLQ, associated with nausea and vomiting. - At least one enteroenteric fistula visualized please see endoscopy note for details, as above. - The patient will likely need revision of stenotic stoma and fistulae in the future once nutritional status is improved. - Continue Dilaudid IV for pain control, as above. - GI consulted and following. We appreciate their time and care of the patient. - Surgery consulted and following. We appreciate their time and care of the patient. 4. Acute on chronic microcytic anemia, present on admission. Active. - Acute portion most likely dilutional due as she was net +11 L and chronic portion likely from severe malnourishment causing multiple vitamin deficiencies and likely bone marrow suppression. - Received 2 units of PRBC to date during this admission. - No overt signs of bleeding. Continue to monitor hemoglobin and hematocrit daily. 5. Chronic partial low-grade small bowel obstruction, present on admission. Resolved. - Likely secondary to stenotic ileostomy stoma status post dilatation. - CT abdomen and pelvis without contrast on admission revealed distended loops from probable chronic partial low-grade small bowel obstruction. Repeat CT abdomen and pelvis without contrast showed decreased small bowel distention, as above. - Continue TPN and advance to goal with addition of micronutrients. Per discussion with Surgery and GI, discontinued TF as patient has continued abdominal pain and had severe small bowel dilatation which has improved but could potentially turn into a surgical emergency with TF. - GI performed endoscopy with successful 12 mm stomal dilatation see endoscopy note for details, as above. - GI consulted and following. We appreciate their time and care of the patient. - Surgery consulted and following. We appreciate their time and care of the patient. 6. Acute thrombocytopenia, not present on admission. Resolved. - Likely partly dilutional and possibly from bone marrow suppression from severe malnourishment. - Platelet count trending up. Lowest count 33. - Continue to monitor platelet count daily. 7. Acute hypokalemia, not present admission. Active. - Secondary to diuresis and development of contraction alkalosis. - Continue to replete as needed. - Continue to monitor potassium level daily. Chronic problems per primary team: 8. Chronic Crohn's disease status post colectomy and ileostomy with stomal stenosis, present on admission. Active. - Patient is immunocompromised due to Humira and steroids for Crohn disease. Continue hydrocortisone 50 mg every 8 hours for steroid stress dosing. - The patient will likely need revision of stenotic stoma and fistulae in the future once nutritional status is improved. - Humira has been held during acute illness. - GI consulted and following. We appreciate their time and care of the patient. 9. Chronic severe protein calorie malnutrition, present on admission. Active. - Patient is not a PEG tube candidate per GI but has previously been noncompliant with Dobhoff due to discomfort and anxiety therefore options for feeding are limited to TPN currently. - Continue TPN and advance to goal. Per discussion with Surgery and GI discontinued TF as patient has abdominal pain and severe small bowel dilatation as above. - Discontinued albumin 25 g IV every 8 hours. - The patient will need a tunneled catheter for half-way TPN holding off for now due to clinical status. 10. Recent upper extremity DVT, not present on admission. Resolved. - Ultrasound did not show definite DVT, as above. - Anticoagulation with Fondaparinux discontinued as patient received sufficient course of anticoagulation for UE DVT in October after PICC line placement. 11. Anxiety and depression, present on admission. Active. - Patient's anxiety and depression are related to disease condition but causing significant morbidity none the less. - Continue Klonopin 0.5mg BID and Fluoxetine 20 mg daily. 12. Likely acute thrush, present on admission. - Secondary to prednisone usage. - Will plan to treat with Nystatin suspension. Disposition: Guarded as the patient has significant comorbidities. . GI Prophylaxis: H2 luis carlos VTE Prophylaxis: Sub-Q Heparin (Unfractionated) VTE Mechanical Devices: Intermittant Pneumatic CD Resuscitation Status: CPR: Attempt Resuscitation Attending Statement I have seen and examined this patient with the resident physician. Vital signs , labs, imaging have been reviewed. I agree with the assessment and plan above. Please refer to my separately dictated progress note for any modifications to above. Loraine Vo M.D. Pulmonary and Critical Care medicine Pager [phone] Dania Brandt DO Jan 02, 2017 08:28 Loraine Vo MD Jan 02, 2017 13:51
--- NOTE | 2017-01-02 09:43 | DRSVH ---
PROCEDURE: X-RAY CHEST ONE VIEW, PORTABLE ([id number]) INDICATIONS: Pulmonary edema TECHNIQUE: One view of the chest was acquired. COMPARISON: [facility], CR, XR CHEST 1VW (PORTABLE), 01/01/2017, 4:45. FINDINGS: Surgical changes and devices: Stable positioning of right IJ CVL Lungs and pleura: Diffuse, widespread bilateral interstitial and airspace opacities redemonstrated, i ncreased involving the right lung base otherwise no significant change. Small pleural effusions. Mediastinum: Mediastinal contours appear normal. Heart size is normal. Bones and chest wall: No suspicious bony lesions. Overlying soft tissues appear unremarkable. IMPRESSION: Pulmonary edema and/or diffuse bilateral inflammatory process, increased involving the right lung bas e otherwise no significant change. Small pleural effusions. Dictated by: Jimmy Eubanks [facility] Interpreted: Keeley Bethea MD on 01/02/2017 at 9:39 Transcribed by: LAUREN on 01/02/2017 at 9:41 Approved by: Keeley Bethea MD, PhD on 01/02/2017 at 16:35
[2017-01-02] MEDS ORDERED: Furosemide 10 mg/mL 2 mL Inj IVPUSH ONE (09:50)
--- NOTE | 2017-01-02 11:23 | PROG NOTE ---
[address] [address] PROGRESS NOTE PATIENT: MAE FELIZ : 1985 MR#: [id number] ADMIT: 12/18/2016 JOB ID: [id number] DATE: 01/02/2017 PULMONARY CRITICAL CARE PROGRESS NOTE: A 31-year-old woman with history of severe Crohn disease, status post colectomy complicated by ileostomy stenosis, immunocompromised with Humira and steroids, admitted to the ICU with acute hypoxic respiratory failure and ARDS. The patient was seen and evaluated with resident physician, Dania Brandt DO. Please refer to her separate detailed note for additional information. INTERVAL HISTORY: Remains stable on BiPAP most of the time, taking short breaks of up to 1 hour, on OxyMask or nasal cannula. FiO2 is down to 30% on the BiPAP. She failed her speech evaluation for swallowing yesterday. REVIEW OF SYSTEMS: She says her breathing is much better. She still has minimal abdominal pain as before. Denies nausea, vomiting, chest pain. PHYSICAL EXAMINATION: Vital signs reviewed. She is afebrile, on 35% FiO2 with sats of 100%. Hemodynamically stable. General: Extremely thin, cachectic-appearing woman who is breathing comfortably on BiPAP right now. Chest: Bilateral rhonchi as before. She has no lower extremity edema. Heart is regular. LABORATORIES: Reviewed. Hemoglobin is around 7.1 to 7.3, platelets 214. Chemistry is reviewed. AST, ALT and alk phos remain slightly elevated. CULTURES: All cultures from BAL are finally back including pneumocystis from December 26, and these are all negative including CMV on BAL. CHEST X-RAY: Chest x-ray today shows improvement in left-sided infiltrate and worsening of left upper lobe and lower lobe infiltrate compared to yesterday, although nowhere near as bad as it was the day prior to that. ASSESSMENT AND RECOMMENDATIONS: 1. Acute hypoxic respiratory failure -- intubated on December 26 and extubated on December 31, currently on BiPAP. 2. Adult respiratory distress syndrome. 3. Takotsubo cardiomyopathy. Ejection fraction 30%. 4. Severe protein-calorie malnutrition. 5. Crohn disease, on immunosuppression with Humira and steroids, with ileostomy stenosis. 6. Upper extremity peripherally inserted central catheter-associated deep venous thrombosis. Completed two months of fondaparinux. 7. Severe hypoalbuminemia. Continues to be stable on BiPAP. However, her x-ray today looks a little worse for reasons I am not sure of. It could be some rebound pulmonary edema from stopping her diuretics because of contraction alkalosis and severe hypokalemia. It could also be that she has aspirated because she failed her swallow eval yesterday. She is having Speech reassess her, and I will speak to them today about how she did yesterday and whether it would be safe to keep attempting these at this point. We also are going to schedule Lasix 20 mg IV plus Diamox or acetazolamide 250 mg IV b.i.d. Spironolactone may be a good choice in her as well, at least to preserve her potassium. Surgical attempt at long-term central venous access placement is going to be postponed for now until her respiratory status has stabilized and for now, will use her triple lumen line for total parenteral nutrition. She is getting fat with total parenteral nutrition three days a week, and this meets her requirements at this point. LFT continue to be slightly elevated, and we are watching them and attributing them to total parenteral nutrition right now. She is on appropriate deep venous thrombosis and gastrointestinal prophylaxis. She is a FULL CODE per my conversation with her mom prior to extubation. CRITICAL CARE TIME: 60 minutes.
[2017-01-02] MEDS ORDERED: KCl 40 mEq/100 mL (CENTRAL) 40 MEQ in IV Premix 1 EACH IV ONE (12:45)
--- NOTE | 2017-01-02 13:20 | PCM.PNMED ---
Subjective Date of Service Jan 02, 2017 Subjective Patient has no complaints this morning on evaluation. Overnight she remained on BiPAP, and tolerated it well. Nursing notes from overnight convey that she complained of abdominal pain 5 out of 10 and requested additional pain medication, as well as increased anxiety for which she also requested medication. She remained tachycardic overnight, while continuing dobutamine drip. Exam Vital Signs Vital Sign - Last Date Time Temp Pulse Resp B/P Pulse Ox O2 Delivery O2 Flow Rate FiO2 01/02/17 11:47 CPAP/BIPAP 01/02/17 11:47 36.7 108 22 111/77 98 30 01/02/17 05:23 5.00 Intake and Output 01/01/17 01/01/17 01/02/17 Cumulative From/Thru 15:00 23:00 07:00 12/18/16 14:54 - 01/02/17 06:05 Intake Total 1268 ml 921 ml 54806 ml Output Total 1325 ml 700 ml 10271 ml Balance -57 ml 221 ml 2409 ml Intake Oral 8710 ml IV Total 822 ml 472 ml 73974 ml Tube Feeding 482 ml TPN/PPN 446 ml 449 ml 6387 ml Packed Cells 300 ml Tube Irrigant 770 ml Output Urine Total 950 ml 550 ml 12627 ml Stool Total 375 ml 01699 ml Urine/Stool Mix 150 ml 850 ml Gastric Drainage Total 775 ml # Voids 1 # Bowel Movements 1 1 Exam General: Cachectic woman, awake and interactive. HEENT: Oropharynx is dry, there is dried blood to the upper lip, do not appreciate any thrush. Neck: Central venous catheter right internal jugular. No JVD appreciated. Chest & Lungs: Lung sounds were course + rhonchi, unable to appreciate any rales , wheezing on exam secondary to BiPAP. normal full chest excursion. Cardiovascular: RRR, no murmurs noted, Pulses: radial pulses bilaterally, dorsalis pedis present and equivalent bilaterally. Abdomen: Non-distended, soft, mild tenderness, ileostomy in place, stoma free of erythema and leakage, scattered echymosis and scarring over her abdomen. Extremities: Cool. No edema to extremities. Compression stockings and SCD's in place. Skin: Dry cracking skin diffusely on back and extremities, early pressure ulcer changes on sacrum and iliac. Abrasions to back and legs Taylor catheter in place Neuro: Able to move her extremities on her own volition, Musculoskeletal: Upper extremity flexion and extension from laying position are 5 out of 5, able to lift legs off the bed against resistance dorsiflex and plantarflex foot 5 out of 5. Runner Man strength is equal bilaterally IVs and Medications Medications Reviewed: Medications were reviewed in detail Lab and Diagnostics Result Diagram: 01/02/17 0320 01/02/17 1002 Microbiology Stool PCR negative. Urine culture grew mixed urogenital floor. MRSA screen negative. BAL respiratory viral PCR negative. BAL Legionella, acid-fast bacillus, PCP, CMV all negative. Blood culture 2 has no growth after 5 days. Blood fungal culture 2 negative to date. . X-Rays, CTs and MRIs Chest x-ray was performed 01/02/2017 IMPRESSION: Pulmonary edema and/or diffuse bilateral inflammatory process, increased involving the right lung base otherwise no significant change. Small pleural effusions. Dictated by: Jimmy ESCALANTE Interpreted: Keeley Bethea MD on 01/02/2017 at 9:39 Chest x-ray performed 12/31/2016 -imaging was reviewed personally in detail IMPRESSION: Worsening pulmonary edema versus diffuse bilateral inflammatory process. ARDS cannot be excluded. Dictated by: Jimmy ESCALANTE Interpreted: Keeley Bethea MD on 12/31/2016 at 9:13 Chest x-ray performed 12/29/2016 IMPRESSION: Pulmonary edema and/or diffuse bilateral pneumonia not significantly changed. ARDS cannot be excluded. Dictated by: Jimmy ESCALANTE Interpreted: More Woodard MD on 12/30/2016 at 10:27 Chest X-ray performed 12/29/16 IMPRESSION: Pulmonary edema and/or diffuse bilateral pneumonia not significant changed. ARDS cannot be excluded. Dictated by: Jimmy ESCALANTE Interpreted: Keeley Bethea MD on 12/29/2016 at 8:58 Portable chest x-ray performed 12/27/2016 IMPRESSION: 1. Persistent bilateral airspace consolidation with a perihilar predominance as well as left retrocardiac consolidation. Findings most likely represent pneumonia including from atypical etiologies. 2. Persistent bilateral pleural effusions. Chest CT without contrast performed 12/26/2016 IMPRESSION: 1. Severe bilateral pneumonia. 2. Small bilateral pleural effusions. 3. Opacification of the right lower lobe bronchus, consistent with mucous plugging. 4. Small amount of ascites. 5. Severe abdominal subcutaneous edema. 6. Findings discussed with Dr. Brandt on 12.26.17 at 1439 hrs. Dictated by: Calvin Bonds M.D. on 12/26/2016 at 14:[address] without contrast performed 12/26/2016 IMPRESSION: 1. No acute intracranial abnormality. Dictated by: Chris Heredia M.D. on 12/26/2016 at 8:25 CT ABDOMEN AND PELVIS WITHOUT CONTRAST IMPRESSION: 1. Free air is not identified. 2. Markedly distended colon suggesting distal colonic obstruction. Rectal tube may be of benefit. 3. Question of low-density stones versus particles of air in the gallbladder. Ultrasound is suggested. ADDENDUM: Additional information is that the patient has had a colectomy. The distended loops therefore must be small bowel. In addition there is an ileostomy rather an ileal loop into the right lower quadrant. In the operative from this is reportedly fairly good. This would indicate that C. dilated small bowel loops are related to a chronic low-grade obstruction or a relatively acute high-grade obstruction. No wall thickening or air in the tsai of the dilated loops is seen. Since the patient does not have obstructive symptoms clinically this is likely to be a distended loops from chronic partial low grade obstruction of a small bowel loop. Dictated by: Esteban Cabrera M.D. on 12/18/2016 at 18:44 US ABDOMEN, LIMITED IMPRESSION: Multiple stones in the gallbladder but no free air or changes to indicate acute cholecystitis. Dictated by: Esteban Cabrera M.D. on 12/18/2016 at 19:49 X-RAY ACUTE ABDOMINAL SERIES IMPRESSION: Changes are consistent with partial or early small bowel obstruction. Dictated by: Esteban Cabrera M.D. on 12/18/2016 at 20:37 Cardiac Echo Impressions Echocardiogram Interpretation Summary: The left ventricle is normal in size. The ejection fraction is estimated to be 30-35%. Except basal LV segments and apical segments which have preserved or slightly increased contractility, rest all the mid LV segments are severey hypokinetic to akinetic. This pattern favors atypical stress induced cardiomyopathy. The right ventricle is normal size.Right ventricular systolic function is at the lower limits of normal. There is moderate mitral regurgitation. There is mild to moderate tricuspid regurgitation. Right ventricular systolic pressure is estimated to be 25 mmHg plus the clinically estimated CVP which cannot be estimated on this exam. There are small-sized bilateral pleural effusions noted. The patient was in sinus bradycardia with heart rates between 57-58 bpm during the exam. Cardiac Echo Impressions Echocardiogram Interpretation Summary: The left ventricle is normal in size. The ejection fraction is estimated to be 30-35%. Except basal LV segments and apical segments which have preserved or slightly increased contractility, rest all the mid LV segments are severey hypokinetic to akinetic. This pattern favors atypical stress induced cardiomyopathy. The right ventricle is normal size.Right ventricular systolic function is at the lower limits of normal. There is moderate mitral regurgitation. There is mild to moderate tricuspid regurgitation. Right ventricular systolic pressure is estimated to be 25 mmHg plus the clinically estimated CVP which cannot be estimated on this exam. There are small-sized bilateral pleural effusions noted. The patient was in sinus bradycardia with heart rates between 57-58 bpm during the exam. Cardiac Echo Impressions Echocardiogram Interpretation Summary: The left ventricle is normal in size. The ejection fraction is estimated to be 30-35%. Except basal LV segments and apical segments which have preserved or slightly increased contractility, rest all the mid LV segments are severey hypokinetic to akinetic. This pattern favors atypical stress induced cardiomyopathy. The right ventricle is normal size.Right ventricular systolic function is at the lower limits of normal. There is moderate mitral regurgitation. There is mild to moderate tricuspid regurgitation. Right ventricular systolic pressure is estimated to be 25 mmHg plus the clinically estimated CVP which cannot be estimated on this exam. There are small-sized bilateral pleural effusions noted. The patient was in sinus bradycardia with heart rates between 57-58 bpm during the exam. . Additional Diagnostics Bronchoscopy FINDINGS: Normal appearing airways. Fluid is blood-tinged on the right and yellowish orange on the left, not consistent with alveolar hemorrhage. Samples of right upper lobe anterior segment, BAL and lingular BAL were both pooled, approximately 60 cc total. TESTING: BAL was pooled and sent for bacterial, fungal, AFB, pneumocystis, viral cultures, as well as cytology and cell count with differential. Loraine Vo MD 12/26/16 1524 Limited ileoscopy with stoma balloon dilatation under fluoroscopy: ENDOSCOPIC DIAGNOSES: 1. Severe stomal stenosis. 2. 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 3. Successful stomal dilatation to 12 mm. RECOMMENDATIONS: 1. After again cleaning the skin, application of the ostomy bag is to be performed in the ICU. 2. Continue full liquid diet. 3. As long as there are no apparent hemorrhagic complications, I think it would be fine to continue the fondaparinux this evening. 4. Dr. Abbott is planning on placing the right IJ for central access this evening and once this is in position, TPN should immediately be Kirby Valdez MD 12/24/16 3004 . Assessment & Plan Terra Beauchamp is an 31 year old woman that recently moved to the [facility] from the [facility] with a complex history of Crohn's disease s/p total proctocolectomy with end ileostomy performed at [facility] in [place], [place]. She is on chronic glucocorticoids with Humira therapy, multiple prior obstructions/near obstructions near ostomy, recurrent flares, and recent left UE DVT secondary to PICC placement for TPN, who presented to the ED 2016 with acute on chronic diffuse abdominal pain, vomiting, and nausea. on hospital day 7 patient developed acute hypoxic respiratory failure and was transferred to the ICU. Hospital day 16 ICU, day 10 was on a ventilator for 5 days, Antibiotics/Antifungal day 7 1. Acute hypoxemic respiratory failure, not present on admission. Stable - Most likely due to fluid overload evidenced on x-ray has diffuse edema however , ARDS with capillary leak, fungal or atypical infection, cardiac etiology, and refeeding syndrome are differentials. - Chest x-ray today showed mildly worse from yesterday. X-ray Imaging personally reviewed and compared. - BiPAP continued attempt weans as tolerated - Cardiac etiology :Echocardiogram: Ejection fraction 25-30%, stress-induced cardiomyopathy, cardiac cachexia. - Infectious etiology: Chest CT without contrast demonstrated Severe bilateral pneumonia, small bilateral pleural effusions, opacifications consistent with mucous plugging, STOP Zosyn. Bactrim IV prophylaxis for pneumocystis per Infectious Disease, patient unable to swallow pills. Bronchoscopy completed, no gross abnormalities. Serologies remain negative. Cytology negative for malignancy. Fungal blood cultures 2 negative at one week. Fungal Antibodies = Elevated, rechecking that Zosyn has been discontinued. May be false positive secondary to Zosyn. Continue Cresemba per ID. Histo, Legionella urine antigen negative. HIV screen = negative Serum CMV PCR - pending LDH elevated on recheck. - Renal Etiology - Urine protein negative, - Autoimmune panel negative - Infectious disease, cardiology, critical care pulmonology, general surgery, and gastroenterology following in consultation on the case. We appreciate their time, evaluation, and recommendations. - Will monitor I&O's closely. - ABGs with changes in respiratory status. 2. Acute systolic congestive heart failure, not present on admission, management ongoing. - Echocardiogram reevaluation by Dr. Yeung stated ejection fraction 25-30%, stress- induced cardiomyopathy, and cardiac cachexia. - Continue dobutamine drip. Was found to not to be administered continuously overnight, possibly contributing to worsening pulmonary edema mentioned above. - Continue gentle diuresis. Furosemide 20mg IV with Acetazolamide 250mg IV BID to prevent contraction alkalosis. - In regards to concern for vesicoenteric fistula, GI consult states pressure gradient would favor fecal matter in urine rather than urine and fecal matter, urine remains clear. - Cardiology is following 3. Acute hypokalemia, not present on admission, Improved. - Decreased substantially with furosemide diuresis. - Replete as needed with IV Potassium. - Consider spironolactone if third line option is necessary. - Continue to monitor with BMP and replete as needed. 4. Acute anemia, not present on admission. Stable. - Hemoglobin continues to be low, stable. - Fluid status has improved. NO bleeding or ecchymosis. - 2 units of packed red blood cells were transfused, this in conjunction with diuresis has brought her hemoglobin to greater than 10. (12/25/16) - Recheck with PM labs, Replenish if <7.0. 5. Acute transaminitis, not present on admission, stable. - ALT and AST tripled on 12/31/2016, continue to rise overnight. - Potential causes include TPN, Bactrim, and hepato congestion due to when Dobutamine was briefly held overnight before they azalea. - Pharmacy has reviewed medication list, Bactrim or TPN may be the cause so changes to lipids content were made to have the patient with lipids every other day but patient is still receiving 115% of daily caloric needs for weight gain. - Continue to monitor. 6. Crohn's disease with RLQ high output Ileostomy with severe protein/calorie malnutrition, present on admission, Stable. - Continue prednisone, hold Humira. 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 - Tube feeds discontinued per gastroenterology recs for bowel rest as patient's colon is inflamed. - TPN for a total of 110-120% daily caloric requirements. Additional micronutrients added. - Gen. surgery has been consulted Groshong catheter for long-term TPN placement once patient is more stable - Based on gastroenterology's recommendations we have low threshold to repeat abdominal x-ray with increased pain/or mild distention. 7. Acute aspiration, not present on admission, not active - Patient was receiving oral food, she began to cough and it was perceived that she was aspirating (01/01/17), - Infectious disease was notified, patient restarted on Zosyn IV, she has completed 3 days. STOPPED Zosyn. - Will plan for speech therapy to evaluate again, as patient improves. 8. Thrombocytopenia, acute, not present on admission. Resolved. - She continues on a stress dose of hydrocortisone decreased from 100 mg every 8 hours on 12/26/16 to 50mg every 8 hours on 12/26/16 - Heparin Antibodies - 0.070 within normal limits - Fondaparinux has been discontinued. She has completed 2 full months of treatment. 9. Fever, acute - resolved. - Remained afebrile. - Zosyn discontinued.On Bactrim prophylactically due to immunosuppressed state. - Infectious disease following 10. Hypovolemic hyponatremia, chronic, present on admission - resolved. - Patient's volume status has been repleted, sodium has returned to normal levels. - Continue to monitor BMP. 11. Abdominal pain in the setting of Crohn's disease s/p total proctocolectomy with RLQ ileostomy, acute, present on admission - Likely due to strictures and obstruction and enteroenteric fistula. - Abdominal pain is chronic, currently controlled with analgesics. - Continue to monitor. 12. Early or partial small bowel obstruction, acute, present on admission - Most recent abdominal imaging shows evidence of developing small bowel obstruction and other strictures. She is still having high ostomy output, although mostly just liquids. Status post stomal dilation December 24 - GI consulted, will continue to follow, appreciate time and input. - Surgery consulted and following. Appreciate time and input. - Patient receiving TPN and tolerating this so far. 13. Hypochromic microcytic anemia, likely iron deficiency, chronic, present on admission - Due to poor oral intake and poor nutritional status - Consider iron supplementation as outpatient - Continue to monitor CBC. 14. Anxiety and Depression, POA - Patient's anxiety and depression are related to significant chronic disease condition, but creating significant morbidity none the less. - Continue lorazepam 0.5 mg IV push PRN q3H. 15. Likely Oral Candidiasis, improved. - Secondary to Prednisone usage and - Continue to monitor closely. - Nystatin being given PO BID. - Antiemetic available PRN. Disposition: Anticipate several more days in the CCU due to low blood pressures necessitating pharmacologic IV support. Hospital course difficult to anticipate , may require transfer to tertiary receiving facility. CODE STATUS: Full code Case was discussed with critical care (Dr. Shona Vo) and Infectious Disease ( Dr. Bynum). Pain Evaluation: Adequate Pain Control GI Prophylaxis: H2 luis carlos VTE Prophylaxis: Sub-Q Heparin (Unfractionated) VTE Mechanical Devices: Intermittant Pneumatic CD Resuscitation Status: CPR: Attempt Resuscitation Time spent 40 minutes Attending Statement The patient was seen and examined together with Dr. Couch on 01/02/17 and I have added additional information to the note above. Humberto Couch DO Jan 02, 2017 13:20 Trena Lauren DO Jan 02, 2017 14:46
[2017-01-02] MEDS: DOBUTamine 500 mg/250 D5W 500,000 MCG in IV Premix 1 EACH IV SCH (13:30)
--- NOTE | 2017-01-02 13:49 | PCM.PHAPRO ---
Progress tpn . TPN #11 I. Fluids / Hemodynamics Adult respiratory distress syndrome Takotsubo cardiomyopathy. Ejection fraction 30%. Requiring dobutamine. Hypoalbuminemia with peripheral edema requiring loop diuresis plus acetazolamide to prevent contraction alkalosis a/ Fluid overload improved, now < 4L over dry volume p/ Continue fluid and sodium restriction Crohn disease, on immunosuppression with Humira and steroids, with ileostomy stenosis - II. Chemistries Mild transaminase elevation, seems to be shouldering p/ TIW lipids, watch Ongoing hypokalemia, closely related to loop diuresis p/ Push KCl III. Glycemic control BS generally < 150 without exogenous insulin IV. Substrate At goal PARENTERAL NUTRITION ORDERS 02-Jan-17 Standard Hang Time: 2100 Substrates Total kcal: 940 AMINO ACIDS 65 g DEXTROSE 200 g Total Volume (mL): 1000 LIPIDS 0 g Sterile Water for Injection QS mL To Infuse Over (hrs): 24 Total Volume 1000 mL At at a rate of (mL/hr): 42 Additives Sodium Chloride 40 mEq "typical" daily requirements Sodium Acetate 0 mEq Sodium 50-120mEq Potassium Chloride 80 mEq Potassium 60-120mEq Potassium Phosphate 35 mEq Phosphate 20-40mEq Calcium Gluconate 4.5 mEq Magnesium 8-32mEq Magnesium Sulfate 12 mEq Calcium 9-22mEq Acetate* 80-120mEq Chloride* 80-120mEq Regular Insulin units *Depending on acid-base status Famotidine mg Multivitamins 1 std dose Insulin Regimen Trace Elements 1 std dose none Thiamine mg Regular Low Intensity Subcut Folic Acid 1 mg Regular Medium Intensity Subcut Ascorbic Acid 1000 mg Regular High Intensity Subcut Regular Insulin Infusion Other: Special Instructions: To be infused via central line only. For delay or inturruption of TPN contact the pharmacist for alternative replacement solution. IV LIPID 50grams on Thu, Lam Ramos S Pharm D Jan 02, 2017 13:49
[2017-01-02] MEDS: 0.9% Sodium Chloride 1,000 ML IV SCH (16:30)
--- NOTE | 2017-01-02 16:42 | PCM.PNMED ---
Subjective Date of Service Jan 02, 2017 Subjective GASTROENTEROLOGY PROGRESS NOTE Ms. Beauchamp was sitting upright in bed with NC in place, actively working with ST to improve swallow. She was able to tolerate liquified medications, and was encouraged to continue with ice chips, and appropriately advised to remain NPO during times of BPAP placement to prevent aspiration. Overall, she states that she feels improved compared to yesterday, continues to endorse mild abd pain, but that has also improved. Denies any SOB, chest pain. Able to swallow water well, denies any difficulties. Exam Vital Signs Vital Sign - Last Date Time Temp Pulse Resp B/P Pulse Ox O2 Delivery O2 Flow Rate FiO2 01/02/17 08:30 89 21 118/94 100 35 01/02/17 07:22 36.8 BiPAP 01/02/17 05:23 5.00 Intake and Output 01/01/17 01/01/17 01/02/17 Cumulative From/Thru 15:00 23:00 07:00 12/18/16 14:54 - 01/02/17 06:05 Intake Total 1268 ml 921 ml 71339 ml Output Total 1325 ml 700 ml 00346 ml Balance -57 ml 221 ml 2409 ml Intake Oral 8710 ml IV Total 822 ml 472 ml 97485 ml Tube Feeding 482 ml TPN/PPN 446 ml 449 ml 6387 ml Packed Cells 300 ml Tube Irrigant 770 ml Output Urine Total 950 ml 550 ml 05752 ml Stool Total 375 ml 28802 ml Urine/Stool Mix 150 ml 850 ml Gastric Drainage Total 775 ml # Voids 1 # Bowel Movements 1 1 Exam General: Frail, cachetic; NC in place, sitting upright for ST eval Head: Atraumatic; cushinoid-facies; sclera anicteric Neck: Right IJ in place with bandages clean/dry and intact with minimal leakage Nose: Mucous Membr dry, with NC in place Mouth: Mucous Membr dry Chest & Lungs: Adequate air flow; faint coarse sounds, but improved; no wheeze; cachetic with prominent rib features Cardiovascular: Tachycardic at time of evaluation with rate approx 110 Pulses: Radial (equal and bilateral) Abdomen: Mildly tender, soft; ostomy site free of erythema; output liquid green -brown dark stool with gas, no evidence edy blood; hypoactive sounds continue : Taylor present and secured Extremities: Warm; no edema noted BLLE, compression socks and SCDs in place, without noted edema proximal to SCD; BLUE edema resolved; ecchymosis left wrist Skin: Warm and dry Neurological: CNII-XII grossly intact; answers questions appropriately Psych: Appropriate mood, affect, and responses to questioning; limited insight and judgment based on history of noncompliance Lab and Diagnostics Result Diagram: 01/02/17 0320 01/02/17 0320 Microbiology Stool PCR negative. Urine culture grew mixed urogenital floor. MRSA screen negative. BAL respiratory viral PCR negative. BAL Legionella, acid-fast bacillus, PCP, CMV all pending. Blood culture 2 has no growth after 2 days. Blood fungal culture 2 pending. . X-Rays, CTs and MRIs Chest x-ray performed 12/31/2016 -imaging was reviewed personally in detail IMPRESSION: Worsening pulmonary edema versus diffuse bilateral inflammatory process. ARDS cannot be excluded. Dictated by: Jimmy ESCALANTE Interpreted: Keeley Bethea MD on 12/31/2016 at 9:13 Chest x-ray performed 12/29/2016 IMPRESSION: Pulmonary edema and/or diffuse bilateral pneumonia not significantly changed. ARDS cannot be excluded. Dictated by: Jimmy ESCALANTE Interpreted: More Woodard MD on 12/30/2016 at 10:27 Chest X-ray performed 12/29/16 IMPRESSION: Pulmonary edema and/or diffuse bilateral pneumonia not significant changed. ARDS cannot be excluded. Dictated by: Jimmy ESCALANTE Interpreted: Keeley Bethea MD on 12/29/2016 at 8:58 Portable chest x-ray performed 12/27/2016 IMPRESSION: 1. Persistent bilateral airspace consolidation with a perihilar predominance as well as left retrocardiac consolidation. Findings most likely represent pneumonia including from atypical etiologies. 2. Persistent bilateral pleural effusions. Chest CT without contrast performed 12/26/2016 IMPRESSION: 1. Severe bilateral pneumonia. 2. Small bilateral pleural effusions. 3. Opacification of the right lower lobe bronchus, consistent with mucous plugging. 4. Small amount of ascites. 5. Severe abdominal subcutaneous edema. 6. Findings discussed with Dr. Brandt on 12.26.16 at 1439 hrs. Dictated by: Calvin Bonds M.D. on 12/26/2016 at 14:[address] without contrast performed 12/26/2016 IMPRESSION: 1. No acute intracranial abnormality. Dictated by: Chris Heredia M.D. on 12/26/2016 at 8:25 CT ABDOMEN AND PELVIS WITHOUT CONTRAST IMPRESSION: 1. Free air is not identified. 2. Markedly distended colon suggesting distal colonic obstruction. Rectal tube may be of benefit. 3. Question of low-density stones versus particles of air in the gallbladder. Ultrasound is suggested. ADDENDUM: Additional information is that the patient has had a colectomy. The distended loops therefore must be small bowel. In addition there is an ileostomy rather an ileal loop into the right lower quadrant. In the operative from this is reportedly fairly good. This would indicate that C. dilated small bowel loops are related to a chronic low-grade obstruction or a relatively acute high-grade obstruction. No wall thickening or air in the tsai of the dilated loops is seen. Since the patient does not have obstructive symptoms clinically this is likely to be a distended loops from chronic partial low grade obstruction of a small bowel loop. Dictated by: Esteban Cabrera M.D. on 12/18/2016 at 18:44 US ABDOMEN, LIMITED IMPRESSION: Multiple stones in the gallbladder but no free air or changes to indicate acute cholecystitis. Dictated by: Esteban Cabrera M.D. on 12/18/2016 at 19:49 X-RAY ACUTE ABDOMINAL SERIES IMPRESSION: Changes are consistent with partial or early small bowel obstruction. Dictated by: Esteban Cabrera M.D. on 12/18/2016 at 20:37 Cardiac Echo Impressions Echocardiogram Interpretation Summary: The left ventricle is normal in size. The ejection fraction is estimated to be 30-35%. Except basal LV segments and apical segments which have preserved or slightly increased contractility, rest all the mid LV segments are severey hypokinetic to akinetic. This pattern favors atypical stress induced cardiomyopathy. The right ventricle is normal size.Right ventricular systolic function is at the lower limits of normal. There is moderate mitral regurgitation. There is mild to moderate tricuspid regurgitation. Right ventricular systolic pressure is estimated to be 25 mmHg plus the clinically estimated CVP which cannot be estimated on this exam. There are small-sized bilateral pleural effusions noted. The patient was in sinus bradycardia with heart rates between 57-58 bpm during the exam. . Additional Diagnostics Arterial blood gas performed 12/31/2016 at 5:56 AM PH 7.49 PCO2 42.4 PO2 66.6 HC03 32.3 Bronchoscopy FINDINGS: Normal appearing airways. Fluid is blood-tinged on the right and yellowish orange on the left, not consistent with alveolar hemorrhage. Samples of right upper lobe anterior segment, BAL and lingular BAL were both pooled, approximately 60 cc total. TESTING: BAL was pooled and sent for bacterial, fungal, AFB, pneumocystis, viral cultures, as well as cytology and cell count with differential. Loraine Vo MD 12/26/16 1524 Limited ileoscopy with stoma balloon dilatation under fluoroscopy: ENDOSCOPIC DIAGNOSES: 1. Severe stomal stenosis. 2. 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 3. Successful stomal dilatation to 12 mm. RECOMMENDATIONS: 1. After again cleaning the skin, application of the ostomy bag is to be performed in the ICU. 2. Continue full liquid diet. 3. As long as there are no apparent hemorrhagic complications, I think it would be fine to continue the fondaparinux this evening. 4. Dr. Abbott is planning on placing the right IJ for central access this evening and once this is in position, TPN should immediately be Kirby Valdez MD 12/24/16 8690 . Assessment & Plan GASTROENTEROLOGY PROGRESS NOTE Ms. Terra Beauchamp is an extremely pleasant 31 year old woman that recently moved to the [facility] from the [facility] with a complex history of Crohn 's disease s/p total proctocolectomy with end ileostomy performed at [facility] in [place], [place]. She is on chronic glucocorticoids with Humira therapy, multiple prior obstructions/near obstructions near ostomy, recurrent flares, and recent left UE DVT secondary to PICC placement for TPN, who presented to the ED 12/18/2016 with acute on chronic diffuse abdominal pain, vomiting, and nausea. 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 - Adrenal insufficiency secondary to chronic steroid use - LUE DVT secondary to PICC placement, completed fondaparinux therapy - Severe protein/calorie malnutrition, BMI 15 on admission, s/p RIJ placement for TPN - CT showing chronic low-grade obstruction. However clinically she is passing gas and passing fecal material. - Abdominal pain; chronic. Likely secondary to chronic, low grade stenosis and po attempts for maximal intake to maintain nutrition Plan/Recommendations for 01/02/2017: - Diuresis per primary team to minimize fluid retention and ongoing improvements in respiratory status - Continue stress dose steroids and antimicrobials as appropriate per primary team - Monitor HH and stool output - If ostomy output begins to decline, and increased distention coincides, indicative for repeat stoma dilatation - Continue TPN; adjust/transition to least hepatotoxic formula - Agree with fats 3x/weekly - Low threshold for repeat abd XR remains - If distention increases, admin NGT to low intermittent suction - OK per GI for patient to advance diet to smoothies when appropriate per ST evaluations; encouraged to eat smoothie consistency foods that she has a taste for if safe - If she continues to fail ST evaluations, place Dobhoff for trickle feeds - Recommend Dobhoff with trickle if fail again 01/03 Additional recs/info: - OK to hold Humira for this due dose - Remind patient and mother to provide [facility] records to [facility]/GI - Recommend continued PT evaluation - Had appt with Dr. Dominic Zaidi at on 12/31; cancelled by mother; this will need to be addressed when patient approaches DC, as we may need to assist in arranging FU Additional summary: Patient has history of noncompliance, and removed Dobhoff the day of previous discharge while she was on her way home. Dobhoff was also removed while she was going home after the admission prior to that. Nutrition is essential for her, as she likely requires a complete revision, but her nutritional status is too poor to promote adequate healing. Previous discussions have included SNF. She is not a PEG candidate, as it would likely be more detrimental than beneficial especially because of the poor nutritional status indicated by low albumin. This is have significant impact on wound healing. Tube feeds were anticipated to last at least three months. Due to the history of noncompliance with Dobhoff and need for surgical intervention, TPN is next best choice. This does not come without risk, as her previous TPN site led to a DVT. She is still receiving anticoagulation at this time. Risks of TPN explained to patient, and because her need for nutrition is becoming increasingly critical, it is pursued at this time. TPN carries significant risk of infection, especially with her history of immunosuppression secondary to long winder tender steroids and now Humira use. On 12/24, she was urgently taken to endoscopy for another dilation of stoma, and then transferred to CCU for continued care. She has remained in critical condition with decreased respiratory function requiring mechanical ventilatory support. Diuretics and O2 delivery methods ordered. Cardiology consulted as well, to evaluate EF 30-35, further review likely EF-25. Patient on dobutamine infusion, managed per cardiology. Suspected pathophysiology secondary to oncotic shifts that resulted in pulmonary flash edema after TPN infusion initiated. Diuresis continues prn, gtt DC'd. Patient was extubated 12/30/16 @1555, and later that evening, developed respiratory distress, BPAP was placed. She has much improved , although still requiring intermittent BPAP. Concern for vesico-enteric fistula is low, absence of UTI. Again, at this time, deferring respiratory care and diuresis to primary team. OK to start soft/smoothie diet when deemed appropriate and safe per ST evaluations. If she continues to fail ST evaluations, OK to replace Dobhoff for tube feedings, start at trickle. TPN formula changed to fat-containing formula. Total time: 40 minutes GI Prophylaxis: H2 luis carlos VTE Prophylaxis: Sub-Q Heparin (Unfractionated) VTE Mechanical Devices: Intermittant Pneumatic CD Resuscitation Status: CPR: Attempt Resuscitation Attending Statement Patient seen and examined. Agree with assessment and plan as described by Dr Arteaga. Overall, improved. Bowel sounds much more normal. Now on ice chips. TPN orders have been adjusted in an attempt to minimize hepatic injury. If after speech swallow re-eval tomorrow there is no clearance to advance to smoothie/full liquid diet, then I would recommend temporary dobhoff be placed for trickle tube feeds to be re-initiated until the patient has recovered baseline swallow function. Elissa Arteaga DO Jan 02, 2017 09:30 Kirby Valdez MD Jan 02, 2017 17:44
[2017-01-02] MEDS: Ipratropium 0.02% 0.5 mg/2.5 mL Inhalation Solution NEB PRN (21:00)
[2017-01-02] MEDS: Total Parenteral Nutrition 1 BAG IV SCH (21:22)
[2017-01-03] VITALS (16 sets, daily range): BP systolic 110–127; BP diastolic 80–99; PULSE 97–130; RESP 16–32; O2SAT 93–100
[2017-01-03] MEDS: Hydrocortisone 50 mg/mL 2 mL Inj IVPUSH SCH ×3 (00:28→21:04)
[2017-01-03] MEDS: Heparin 5,000 Unit/mL Inj SUBQ SCH ×4 (00:28→23:34)
[2017-01-03] MEDS: HYDROmorphone 0.5 mg/0.5 mL iSecure Syringe IVPUSH PRN ×10 (00:29→23:21)
[2017-01-03 03:30] LABS: BASOPHILS % (AUTO) 0.2 % (0-3); EOSINOPHILS % (AUTO) 0 % (0-5); MONOCYTES % (AUTO) 3.7 % (4-12); Mean Corpuscular Hemoglobin 25.3 pg (27.0-35.0); Mean Corpuscular Volume 82.9 fL (81-100); NEUTROPHILS % (AUTO) 91.8 % (40-74); Platelet Count 227 bil/L (150-400)
[2017-01-03 03:50] LABS: Magnesium 2.1 mg/dL (1.6-2.6); Phosphorus 3.1 mg/dL (2.5-4.9)
--- NOTE | 2017-01-03 06:54 | DRSVH ---
PROCEDURE: X-RAY CHEST ONE VIEW, PORTABLE ([id number]) INDICATIONS: 31-year-old female with shortness of breath. TECHNIQUE: One view of the chest was acquired. COMPARISON: [facility], CR, XR CHEST 1VW (PORTABLE), 01/02/2017, 5:03. [facility], CR, XR CHEST 1VW (PORTABLE), 01/01/2017, 4:45. [facility], CR, XR CHEST 1VW (TIFFANIE BLE), 12/31/2016, 5:33. FINDINGS: Surgical changes and devices: Right internal jugular central venous catheter remains in expected pos ition. Lungs and pleura: There is trace dependent left pleural effusion as before. No pneumothorax. Wides pread bilateral airspace opacities persist. Mediastinum: Mediastinal contours appear normal. Heart size is normal. Bones and chest wall: No suspicious bony lesions. Overlying soft tissues appear unremarkable. IMPRESSION: Persistent widespread airspace opacities, consistent with florid pulmonary edema and/or bronchopneumonia. Persistent trace dependent left pleural effusion. Dictated by: Maikol Guido M.D. on 01/03/2017 at 6:51 Approved by: Maikol Guido M.D. on 01/03/2017 at 6:53
[2017-01-03] MEDS: Nystatin 100,000 Unit/mL 5 mL Suspension PO SCH ×2 (08:33→21:05)
[2017-01-03] MEDS: Famotidine Inj 20 MG in IV Premix 1 EACH IV SCH ×2 (08:34→21:02)
[2017-01-03] MEDS: DEXTROSE 5% IV SCH ×2 (09:14→15:49)
[2017-01-03] MEDS: TRIMETHOPRIM SULFA IV SCH (09:14)
[2017-01-03] MEDS: Ondansetron 2 mg/mL 2 mL Inj IVPUSH PRN ×2 (09:24→18:40)
--- NOTE | 2017-01-03 09:40 | PROG NOTE ---
[address] [address] PROGRESS NOTE PATIENT: MAE FELIZ : 1985 MR#: [id number] ADMIT: 12/18/2016 JOB ID: [id number] DATE: 01/03/2017 NARRATIVE: Groshong catheter placement is currently being delayed pending the patient's tenuous pulmonary status. General Surgery will continue to follow only peripherally, will be available either for Groshong catheter placement or Dr. Alvarez will follow up the patient for surgery as her nutritional status improves.
[2017-01-03] MEDS ORDERED: Furosemide 10 mg/mL 2 mL Inj IVPUSH SCH (12:10)
[2017-01-03] MEDS ORDERED: KCl 40 mEq/100 mL (CENTRAL) 40 MEQ in IV Premix 1 EACH IV ONE (12:50)
--- NOTE | 2017-01-03 13:12 | PROG NOTE ---
[address] [address] PROGRESS NOTE PATIENT: MAE FELIZ : 1985 MR#: [id number] ADMIT: 12/18/2016 JOB ID: [id number] DATE: 01/03/2017 PULMONARY CRITICAL CARE PROGRESS: The patient is a 31-year-old woman with history of severe Crohn disease, on immunosuppression with Humira and corticosteroids, complicated by ileostomy stenosis, admitted to the ICU with acute respiratory failure and percussible cardiomyopathy. INTERVAL HISTORY: Remains on BiPAP with brief breaks. She was cleared for ice chips and liquids by swallow eval yesterday. Remains on dobutamine. REVIEW OF SYSTEMS: Breathing feels much better. She is happy to be able to drink minimal abdominal pain that is unchanged for the last few days. PHYSICAL EXAMINATION: Vital signs reviewed. Temperature 36.6, pulse 106, respirations 26, BP 115/88, sats 97% on 40% FiO2. General: Thin, petite, cachectic-appearing woman. Chest: Bilateral rhonchi but better than yesterday. Abdomen: Mildly tender, nondistended. Extremities: No cyanosis, clubbing, or edema. LABORATORIES: Reviewed. Bicarb is down to 19 from 26 yesterday. Cultures all negative. Chest x-ray shows persistent bilateral hilar predominant consolidation that is slightly worse to my eye compared to yesterday. ASSESSMENT AND RECOMMENDATIONS: 1. Acute hypoxic respiratory failure--on mechanical ventilation from December 26 to December 31, currently on BiPAP. 2. Acute respiratory distress syndrome. 3. Takotsubo cardiomyopathy with ejection fraction 30%. 4. Severe protein calorie malnutrition. 5. Crohn disease, on Humira and steroids with ileostomy stenosis. 6. Upper extremity peripherally-inserted central catheter-associated deep venous thrombosis in October 2016. Completed two months of fondaparinux. 7. Severe hypoalbuminemia. 8. Respiratory status is stable but not really improving. She remains on BiPAP and chest x-ray findings persist. We did hold her Lasix for a couple of days because of severe contraction alkalosis, however. This has completely resolved with a couple of days of Diamox. I am going to restart Lasix 20 mg IV b.i.d. today. Continue dobutamine at 3 mcg and the nurses have instructions to not titrate this. We have to make sure we stay on top of her potassium so I am going to request 40 mEq of potassium to be administered now because most likely she will drop her potassium with diuresis today. She is only getting Bactrim for PCP prophylaxis and no other antibiotics. She is getting TPN at goal. Critical care time 35 minutes MTDD
--- NOTE | 2017-01-03 14:04 | PCM.PNMED ---
Subjective Date of Service Jan 03, 2017 Subjective Patient states she is doing well today. She does not describe any pain or discomfort. She says it has been easier for her to breathe. Exam Vital Signs Vital Sign - Last Date Time Temp Pulse Resp B/P Pulse Ox O2 Delivery O2 Flow Rate FiO2 01/03/17 12:00 36.4 118 16 127/96 100 BiPAP 40 01/03/17 08:00 6.00 Intake and Output 01/02/17 01/02/17 01/03/17 Cumulative From/Thru 15:00 23:00 07:00 12/18/16 14:54 - 01/03/17 06:24 Intake Total 1128 ml 747 ml 64779 ml Output Total 630 ml 625 ml 03738 ml Balance 498 ml 122 ml 3029 ml Intake Oral 50 ml 8760 ml IV Total 608 ml 197 ml 34148 ml Tube Feeding 482 ml TPN/PPN 470 ml 550 ml 7407 ml Packed Cells 300 ml Tube Irrigant 770 ml Output Urine Total 450 ml 350 ml 30926 ml Stool Total 180 ml 275 ml 11400 ml Urine/Stool Mix 850 ml Gastric Drainage Total 775 ml # Voids 1 # Bowel Movements 1 Exam General: Cachectic woman, awake and interactive. HEENT: Oropharynx is dry, there is dried blood to the upper lip, do not appreciate any thrush. Neck: Central venous catheter right internal jugular. No JVD appreciated. Chest & Lungs: Lung sounds were course rhonchorous, however were cleared with gentle posterior thorax percussion. Maintains expiratory apical wheeze. Cardiovascular: RRR, no murmurs noted, Pulses: radial pulses bilaterally, dorsalis pedis present and equivalent bilaterally. Abdomen: Non-distended, soft, mild tenderness, ileostomy in place, stoma free of erythema and leakage, scattered echymosis and scarring over her abdomen. Extremities: Cool. No edema to extremities. Compression stockings and SCD's in place. Skin: Dry cracking skin diffusely on back and extremities, early pressure ulcer changes on sacrum and iliac. Abrasions to back and legs Taylor catheter in place Neuro: Able to move her extremities on her own volition, Musculoskeletal: Upper extremity flexion and extension from laying position are 5 out of 5, able to lift legs off the bed against resistance dorsiflex and plantarflex foot 5 out of 5. [employer] strength is equal bilaterally IVs and Medications Medications Reviewed: Medications were reviewed in detail Lab and Diagnostics Result Diagram: 01/03/17 0320 01/03/17 0320 Microbiology Stool PCR negative. Urine culture grew mixed urogenital floor. MRSA screen negative. BAL respiratory viral PCR negative. BAL Legionella, acid-fast bacillus, PCP, CMV all pending. Blood culture 2 has no growth after 2 days. Blood fungal culture 2 pending. . X-Rays, CTs and MRIs Chest x-ray performed 01/03/2017 IMPRESSION: Persistent widespread airspace opacities, consistent with florid pulmonary edema and/or bronchopneumonia. Persistent trace dependent left pleural effusion. Dictated by: Maikol Guido M.D. on 01/03/2017 at 6:51 Chest x-ray was performed 01/02/2017 IMPRESSION: Pulmonary edema and/or diffuse bilateral inflammatory process, increased involving the right lung base otherwise no significant change. Small pleural effusions. Dictated by: Jimmy ESCALANTE Interpreted: Keeley Bethea MD on 01/02/2017 at 9:39 Chest x-ray performed 12/31/2016 -imaging was reviewed personally in detail IMPRESSION: Worsening pulmonary edema versus diffuse bilateral inflammatory process. ARDS cannot be excluded. Dictated by: Jimmy ESCALANTE Interpreted: Keeley Bethea MD on 12/31/2016 at 9:13 Chest x-ray performed 12/29/2016 IMPRESSION: Pulmonary edema and/or diffuse bilateral pneumonia not significantly changed. ARDS cannot be excluded. Dictated by: Jimmy ESCALANTE Interpreted: More Woodard MD on 12/30/2016 at 10:27 Chest X-ray performed 12/29/16 IMPRESSION: Pulmonary edema and/or diffuse bilateral pneumonia not significant changed. ARDS cannot be excluded. Dictated by: Jimmy ESCALANTE Interpreted: Keeley Bethea MD on 12/29/2016 at 8:58 Portable chest x-ray performed 12/27/2016 IMPRESSION: 1. Persistent bilateral airspace consolidation with a perihilar predominance as well as left retrocardiac consolidation. Findings most likely represent pneumonia including from atypical etiologies. 2. Persistent bilateral pleural effusions. Chest CT without contrast performed 12/26/2016 IMPRESSION: 1. Severe bilateral pneumonia. 2. Small bilateral pleural effusions. 3. Opacification of the right lower lobe bronchus, consistent with mucous plugging. 4. Small amount of ascites. 5. Severe abdominal subcutaneous edema. 6. Findings discussed with Dr. Brandt on 12.26.17 at 1439 hrs. Dictated by: Calvin Bonds M.D. on 12/26/2016 at 14:[address] without contrast performed 12/26/2016 IMPRESSION: 1. No acute intracranial abnormality. Dictated by: Chris Heredia M.D. on 12/26/2016 at 8:25 CT ABDOMEN AND PELVIS WITHOUT CONTRAST IMPRESSION: 1. Free air is not identified. 2. Markedly distended colon suggesting distal colonic obstruction. Rectal tube may be of benefit. 3. Question of low-density stones versus particles of air in the gallbladder. Ultrasound is suggested. ADDENDUM: Additional information is that the patient has had a colectomy. The distended loops therefore must be small bowel. In addition there is an ileostomy rather an ileal loop into the right lower quadrant. In the operative from this is reportedly fairly good. This would indicate that C. dilated small bowel loops are related to a chronic low-grade obstruction or a relatively acute high-grade obstruction. No wall thickening or air in the tsai of the dilated loops is seen. Since the patient does not have obstructive symptoms clinically this is likely to be a distended loops from chronic partial low grade obstruction of a small bowel loop. Dictated by: Esteban Cabrera M.D. on 12/18/2016 at 18:44 US ABDOMEN, LIMITED IMPRESSION: Multiple stones in the gallbladder but no free air or changes to indicate acute cholecystitis. Dictated by: Esteban Cabrera M.D. on 12/18/2016 at 19:49 X-RAY ACUTE ABDOMINAL SERIES IMPRESSION: Changes are consistent with partial or early small bowel obstruction. Dictated by: Esteban Cabrera M.D. on 12/18/2016 at 20:37 Cardiac Echo Impressions Cardiac Echo Impressions Echocardiogram Interpretation Summary: The left ventricle is normal in size. The ejection fraction is estimated to be 30-35%. Except basal LV segments and apical segments which have preserved or slightly increased contractility, rest all the mid LV segments are severey hypokinetic to akinetic. This pattern favors atypical stress induced cardiomyopathy. The right ventricle is normal size.Right ventricular systolic function is at the lower limits of normal. There is moderate mitral regurgitation. There is mild to moderate tricuspid regurgitation. Right ventricular systolic pressure is estimated to be 25 mmHg plus the clinically estimated CVP which cannot be estimated on this exam. There are small-sized bilateral pleural effusions noted. The patient was in sinus bradycardia with heart rates between 57-58 bpm during the exam. . Additional Diagnostics Arterial blood gas performed 12/31/2016 at 5:56 AM PH 7.49 PCO2 42.4 PO2 66.6 HC03 32.3 Bronchoscopy FINDINGS: Normal appearing airways. Fluid is blood-tinged on the right and yellowish orange on the left, not consistent with alveolar hemorrhage. Samples of right upper lobe anterior segment, BAL and lingular BAL were both pooled, approximately 60 cc total. TESTING: BAL was pooled and sent for bacterial, fungal, AFB, pneumocystis, viral cultures, as well as cytology and cell count with differential. Loraine Vo MD 12/26/16 1521 Limited ileoscopy with stoma balloon dilatation under fluoroscopy: ENDOSCOPIC DIAGNOSES: 1. Severe stomal stenosis. 2. 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 3. Successful stomal dilatation to 12 mm. RECOMMENDATIONS: 1. After again cleaning the skin, application of the ostomy bag is to be performed in the ICU. 2. Continue full liquid diet. 3. As long as there are no apparent hemorrhagic complications, I think it would be fine to continue the fondaparinux this evening. 4. Dr. Abbott is planning on placing the right IJ for central access this evening and once this is in position, TPN should immediately be Kirby Valdez MD 12/24/16 2388 . Assessment & Plan Terra Beauchamp is an 31 year old woman that recently moved to the [facility] from the [facility] with a complex history of Crohn's disease s/p total proctocolectomy with end ileostomy performed at [facility] in [place], [place]. She is on chronic glucocorticoids with Humira therapy, multiple prior obstructions/near obstructions near ostomy, recurrent flares, and recent left UE DVT secondary to PICC placement for TPN, who presented to the ED 2016 with acute on chronic diffuse abdominal pain, vomiting, and nausea. on hospital day 7 patient developed acute hypoxic respiratory failure and was transferred to the ICU. Hospital day 17 ICU, day 11 was on a ventilator for 5 days, Antibiotics/Antifungal day 8 Summary of prolonged hospital stay She has numerous confounding medical problems, most pertinent at this time is the acute hypoxic respiratory failure, which all infectious disease studies performed have been negative for. The most likely cause is diffuse pulmonary edema and acute respiratory distress syndrome, this is being attributed to capillary leak, and cardiac failure secondary to stress-induced cardiomyopathy and cardiac cachexia. She is being given TPN, and diuresed daily. Due to her diuresis she has had persistently low serum potassium which has needed to be replaced daily. Both surgical and gastroenterology are following the patient with recommendations on feedings. As it stands, the plan is for surgery to place a Groshong's catheter for TPN once her respiratory problems have stabilized. Gastroenterology is doing trickle feeds if bowel inflammation subsides. She has failed swallow studies to date, with witnessed aspiration, however is allowed to have ice chips and water. 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 Below is itemized plan with further details. 1. Acute hypoxemic respiratory failure, not present on admission. Stable - Most likely due to fluid overload evidenced on x-ray has diffuse edema however , ARDS with capillary leak, fungal or atypical infection, cardiac etiology, and refeeding syndrome are differentials. - Chest x-ray today showed mildly improved from yesterday. X-ray Imaging personally reviewed and compared. - OxyMask with BiPAP as needed - Continue with diuresis per problem 2. - Cardiac etiology :Echocardiogram: Ejection fraction 25-30%, stress-induced cardiomyopathy, cardiac cachexia. - Infectious etiology: Chest CT without contrast demonstrated Severe bilateral pneumonia, small bilateral pleural effusions, opacifications consistent with mucous plugging, Bactrim IV prophylaxis for pneumocystis per Infectious Disease, patient unable to swallow pills. Bronchoscopy completed, no gross abnormalities. Serologies remain negative. Cytology negative for malignancy. Fungal blood cultures 2 negative at one week. Fungal Antibodies = Repeat Fungitell NEGATIVE. Histo, Legionella urine antigen negative. HIV screen = negative Serum CMV PCR - pending LDH elevated on recheck. Zosyn Stopped (12/30/16) - Renal Etiology - Urine protein negative, - Autoimmune panel negative - Infectious disease, cardiology, critical care pulmonology, general surgery, and gastroenterology following - Will monitor I&O's closely. - ABGs with changes in respiratory status. 2. Acute systolic congestive heart failure, not present on admission, management ongoing. - Echocardiogram reevaluation by Dr. Yeung stated ejection fraction 25-30%, stress- induced cardiomyopathy, and cardiac cachexia. - Continue dobutamine drip at 3mcg. - Continue gentle diuresis. Furosemide 20mg IV BID - HOLD Acetazolamide, bicarb level has improved. - In regards to concern for vesicoenteric fistula, GI consult states pressure gradient would favor fecal matter in urine rather than urine in fecal matter, urine remains clear. - Cardiology is following 3. Acute hypokalemia, not present on admission, Improved. - Replete prophylactically and as needed with IV Potassium. - Consider spironolactone if third line option is necessary. - Continue to monitor with BMP 4. Acute anemia, not present on admission. Stable. - Hemoglobin continues to be low, stable. - Fluid status has improved. NO bleeding or ecchymosis. - 2 units of packed red blood cells were transfused, this in conjunction with diuresis has brought her hemoglobin to greater than 10. (12/25/16) - Recheck with PM labs, Replenish if <7.0. 5. Acute transaminitis, not present on admission, stable. - ALT and AST tripled on 12/31/2016, Remain elevated without worsening, currently trending down - Potential causes include TPN, Bactrim, and hepato congestion due to when Dobutamine was briefly held overnight before they azalea. - Pharmacy has reviewed medication list, Bactrim or TPN may be the cause so changes to lipids content were made to have the patient with lipids every other day but patient is still receiving 115% of daily caloric needs for weight gain. - Continue to monitor. 6. Crohn's disease with RLQ high output Ileostomy with severe protein/calorie malnutrition, present on admission, Stable. - Continue prednisone, hold Humira. 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 - Tube feeds discontinued per gastroenterology recs for bowel rest as patient's colon is inflamed. - TPN for a total of 110-120% daily caloric requirements. Additional micronutrients added. - Gen. surgery has been consulted Groshong catheter for long-term TPN placement once patient is more stable. - Based on gastroenterology's recommendations we have low threshold to repeat abdominal x-ray with increased pain/or mild distention. 7. Acute aspiration, not present on admission, not active - Patient was receiving oral food, she began to cough and it was perceived that she was aspirating (01/01/17), - Infectious disease was notified, patient restarted on Zosyn IV, she completed 3 days. STOPPED Zosyn. - Will plan for speech therapy to evaluate again, as patient improves. 8. Thrombocytopenia, acute, not present on admission. Resolved. - She continues on a stress dose of hydrocortisone decreased from 100 mg every 8 hours on 12/26/16 to 50mg every 8 hours on 12/26/16 - Heparin Antibodies - 0.070 within normal limits - Fondaparinux has been discontinued. She has completed 2 full months of treatment. 9. Fever, acute - resolved. - Remained afebrile. - Zosyn discontinued.On Bactrim prophylactically due to immunosuppressed state. - Infectious disease signed off 10. Hypovolemic hyponatremia, chronic, present on admission - resolved. - Patient's volume status has been repleted, sodium has returned to normal levels. - Continue to monitor BMP. 11. Abdominal pain in the setting of Crohn's disease s/p total proctocolectomy with RLQ ileostomy, acute, present on admission - Likely due to strictures and obstruction and enteroenteric fistula. - Abdominal pain is chronic, currently controlled with analgesics. - Continue to monitor. 12. Early or partial small bowel obstruction, acute, present on admission - Most recent abdominal imaging shows evidence of developing small bowel obstruction and other strictures. She is still having ostomy output, although mostly just liquids. Status post stomal dilation December 24 - GI consulted, will continue to follow, appreciate time and input. - Surgery consulted and following. Appreciate time and input. - Patient receiving TPN and tolerating this so far. 13. Hypochromic microcytic anemia, likely iron deficiency, chronic, present on admission - Due to poor oral intake and poor nutritional status - Consider iron supplementation as outpatient - Continue to monitor CBC. 14. Anxiety and Depression, POA - Patient's anxiety and depression are related to significant chronic disease condition, but creating significant morbidity none the less. - Continue lorazepam 0.5 mg IV push PRN q3H. 15. Likely Oral Candidiasis, improved. - Secondary to Prednisone usage and - Continue to monitor closely. - Nystatin being given PO BID. - Antiemetic available PRN. Disposition: Anticipate several more days in the CCU due to low blood pressures necessitating pharmacologic IV support. Hospital course difficult to anticipate , may require transfer to tertiary receiving facility. GI has suggested that the patient may have beri beri and would like to start IV thiamine. Will start this today. CODE STATUS: Full code Case was discussed with critical care (Dr. Shona Vo) and GI (Dr. Valdez) Pain Evaluation: Adequate Pain Control GI Prophylaxis: H2 luis carlos VTE Prophylaxis: Sub-Q Heparin (Unfractionated) VTE Mechanical Devices: Intermittant Pneumatic CD, Anti-Embolic stockings Resuscitation Status: CPR: Attempt Resuscitation Time spent Greater than 40 minutes Attending Statement The patient was seen and examined together with Dr. Couch on 01/03/2017 and I have added additional information to the note above. Humberto Couch DO Jan 03, 2017 14:04 Trena Lauren DO Jan 03, 2017 15:48
--- NOTE | 2017-01-03 15:02 | PROG NOTE ---
[address] [address] PROGRESS NOTE PATIENT: MAE FELIZ : 1985 MR#: [id number] ADMIT: 12/18/2016 JOB ID: [id number] DATE: 01/03/2017 SUBJECTIVE: The patient remains on BiPAP. She tired out on nasal cannula this morning and, therefore, speech pathology assessment just has not been accomplished yet. She remains on TPN with variable fat consistency depending on the day. Stoma output is a liquid green color. She is on a small amount of stress dosed steroid. Humira has been on hold. She remains on a little bit of dobutamine. She is currently on Bactrim IV. OBJECTIVE: Heart rate was 110 when I was at the bedside. Blood pressure acceptable, breathing on BiPAP. Alert, minimally conversational, just simply to remain at rest. Abdomen was soft. I did not appreciate any tenderness. Bowel sounds were auscultated, less active than yesterday. Again green liquid stool in the stoma bag and it looks like she has put out 275 cc in the last 24 hours so far. LABORATORIES: Hemoglobin 7.1, white count is 5.4, platelets 227. Liver tests down a little bit. Alk phos 170, albumin 3.2, creatinine 0.30. Potassium 4.6. IMAGING: X-ray continues to demonstrate persistent widespread airspace opacities with trace left pleural effusion. ASSESSMENT AND PLAN: A 31-year-old female with complicated Crohn's. She has had a prior total proctocolectomy with permanent end ileostomy. She has suffered a consequence of severe stomal stenosis and has had progressive severe protein calorie malnutrition. With the eventual addition of the TPN, she developed symptoms of severe heart failure. I will confirm that there is enough thiamine in her nutrition. I would certainly be concerned about wet beriberi. Otherwise continue supportive care for now. If the patient is able to pass a swallow evaluation, then I would start smoothie diet. Otherwise, the patient may need at least a temporary Dobbhoff for trickle tube feeds to be re-initiated again. Comment. Please note that this particular encounter was a no-charge visit. Please do not submit physician charges for this particular note. MTDD
[2017-01-03] MEDS: DOBUTamine 500 mg/250 D5W 500,000 MCG in IV Premix 1 EACH IV SCH (15:05)
[2017-01-03] MEDS: THIAMINE IV SCH (15:49)
--- NOTE | 2017-01-03 16:00 | PCM.PHAPRO ---
Progress Date of Service: Jan 03, 2017 TPN PARENTERAL NUTRITION ORDERS 12 03-Jan-17 Standard Hang Time: 2100 Substrates Total kcal: 1340 AMINO ACIDS 65 g DEXTROSE 200 g Total Volume (mL): 1000 LIPIDS 40 g Sterile Water for Injection QS mL To Infuse Over (hrs): 24 Total Volume 1000 mL At at a rate of (mL/hr): 42 Additives Sodium Chloride 60 mEq "typical" daily requirements Sodium Acetate 0 mEq Sodium 50-120mEq Potassium Chloride 80 mEq Potassium 60-120mEq Potassium Phosphate 35 mEq Phosphate 20-40mEq Calcium Gluconate 4.5 mEq Magnesium 8-32mEq Magnesium Sulfate 12 mEq Calcium 9-22mEq Acetate* 80-120mEq Chloride* 80-120mEq Regular Insulin units *Depending on acid-base status Famotidine mg Multivitamins 1 std dose Insulin Regimen Trace Elements 1 std dose none Thiamine mg Regular Low Intensity Subcut Folic Acid 1 mg Regular Medium Intensity Subcut Ascorbic Acid 1000 mg Regular High Intensity Subcut Regular Insulin Infusion Srinivas Arriola Jan 03, 2017 16:00
[2017-01-03] MEDS: 0.9% Sodium Chloride 1,000 ML IV SCH (16:47)
[2017-01-03] MEDS: Furosemide 10 mg/mL 2 mL Inj IVPUSH SCH (21:03)
[2017-01-03] MEDS: Total Parenteral Nutrition 1 BAG IV SCH (21:06)
[2017-01-04] VITALS (12 sets, daily range): BP systolic 111–119; BP diastolic 78–89; PULSE 89–110; RESP 19–29; O2SAT 92–98
[2017-01-04] MEDS: HYDROmorphone 0.5 mg/0.5 mL iSecure Syringe IVPUSH PRN ×5 (01:43→19:06)
[2017-01-04] MEDS: Furosemide 10 mg/mL 2 mL Inj IVPUSH SCH ×3 (04:46→20:25)
[2017-01-04 05:09] LABS: BASOPHILS % (AUTO) 0.2 % (0-3); EOSINOPHILS % (AUTO) 0 % (0-5); Mean Corpuscular Hemoglobin 26.5 pg (27.0-35.0); Mean Corpuscular Volume 82.6 fL (81-100); NEUTROPHILS % (AUTO) 89.2 % (40-74); Platelet Count 281 bil/L (150-400)
[2017-01-04 05:31] LABS: Magnesium 2.2 mg/dL (1.6-2.6); Phosphorus 3.2 mg/dL (2.5-4.9)
--- NOTE | 2017-01-04 07:44 | DRSVH ---
PROCEDURE: X-RAY CHEST ONE VIEW, PORTABLE ([id number]) INDICATIONS: Pulm Edema TECHNIQUE: One view of the chest was acquired. COMPARISON: [facility], CR, XR CHEST 1VW (PORTABLE), 01/03/2017, 5:32. [facility], CR, XR CHEST 1VW (PORTABLE), 01/02/2017, 5:03. FINDINGS: Surgical changes and devices: Right internal jugular vein central venous catheter is present, tip of which is in the mid SVC. Lungs and pleura: No pleural effusions or pneumothorax. No change in severe bilateral air space opac ity, consistent with pneumonia/ARDS. Mediastinum: Mediastinal contours appear normal. Heart size is normal. Bones and chest wall: No suspicious bony lesions. Overlying soft tissues appear unremarkable. IMPRESSION: No change in severe bilateral pneumonia/ARDS. Dictated by: Calvin Bonds M.D. on 01/04/2017 at 7:41 Approved by: Calvin Bonds M.D. on 01/04/2017 at 7:42
[2017-01-04] MEDS: Famotidine Inj 20 MG in IV Premix 1 EACH IV SCH ×2 (08:19→20:32)
[2017-01-04] MEDS: DEXTROSE 5% IV SCH ×2 (08:20→08:42)
[2017-01-04] MEDS: THIAMINE IV SCH (08:20)
[2017-01-04] MEDS: Hydrocortisone 50 mg/mL 2 mL Inj IVPUSH SCH ×2 (08:20→20:25)
[2017-01-04] MEDS: Nystatin 100,000 Unit/mL 5 mL Suspension PO SCH (08:20)
[2017-01-04] MEDS: Heparin 5,000 Unit/mL Inj SUBQ SCH ×3 (08:21→23:36)
[2017-01-04] MEDS: TRIMETHOPRIM SULFA IV SCH (08:42)
--- NOTE | 2017-01-04 10:54 | PCM.PHAPRO ---
Progress Date of Service: Jan 04, 2017 TPN Continue with same admixture as yesterday minus the lipids. Thiamine 25mg IV daily is being given external to the TPN currently per Dr. Valdez's request. PARENTERAL NUTRITION ORDERS 13 04-Jan-17 Standard Hang Time: 2100 Substrates Total kcal: 940 AMINO ACIDS 65 g DEXTROSE 200 g Total Volume (mL): 1000 LIPIDS 0 g Sterile Water for Injection QS mL To Infuse Over (hrs): 24 Total Volume 1000 mL At at a rate of (mL/hr): 42 Additives Sodium Chloride 60 mEq "typical" daily requirements Sodium Acetate 0 mEq Sodium 50-120mEq Potassium Chloride 80 mEq Potassium 60-120mEq Potassium Phosphate 35 mEq Phosphate 20-40mEq Calcium Gluconate 4.5 mEq Magnesium 8-32mEq Magnesium Sulfate 12 mEq Calcium 9-22mEq Acetate* 80-120mEq Chloride* 80-120mEq Regular Insulin units *Depending on acid-base status Famotidine mg Multivitamins 1 std dose Insulin Regimen Trace Elements 1 std dose none Thiamine mg Regular Low Intensity Subcut Folic Acid 1 mg Regular Medium Intensity Subcut Ascorbic Acid 1000 mg Regular High Intensity Subcut Srinivas Arriola Jan 04, 2017 10:54
--- NOTE | 2017-01-04 12:41 | PCM.PNMED ---
Subjective Date of Service Jan 04, 2017 Subjective Patient is feeling better this morning. She enjoyed seeing her daughter over the weekend. She continues to endorse stomach pain. She is generally feeling weak and has difficulty speaking up loudly. She uses BiPAP at night and this helps her breathe easier while sleeping. During the day she is tolerating nasal cannula and denies shortness of breath. Overnight, patient tolerated BiPAP. Otherwise uneventful. Exam Vital Signs Vital Sign - Last Date Time Temp Pulse Resp B/P Pulse Ox O2 Delivery O2 Flow Rate FiO2 01/04/17 08:00 Supplement Oxygen 01/04/17 08:00 108 01/04/17 08:00 37.1 28 119/85 98 4.00 01/04/17 04:51 28 Intake and Output 01/03/17 01/03/17 01/04/17 Cumulative From/Thru 15:00 23:00 07:00 12/18/16 14:54 - 01/04/17 06:16 Intake Total 1131 ml 799 ml 04059 ml Output Total 775 ml 31934 ml Balance 356 ml 799 ml 4184 ml Intake Oral 8760 ml IV Total 283 ml 262 ml 05248 ml Tube Feeding 482 ml TPN/PPN 463 ml 537 ml 8407 ml Packed Cells 385 ml 685 ml Tube Irrigant 770 ml Output Urine Total 525 ml 21812 ml Stool Total 250 ml 11720 ml Urine/Stool Mix 850 ml Gastric Drainage Total 775 ml # Voids 1 # Bowel Movements 1 Exam General: Cachectic woman, awake and interactive. HEENT: Oropharynx is dry, there is dried blood to the upper lip, do not appreciate any thrush. PERRLA, EOMI, sclera anicteric. Neck: Central venous catheter right internal jugular. No JVD appreciated. Chest & Lungs: Relatively clear lung sounds today. Decreased breath sounds with poor respiratory effort. Cardiovascular: RRR, no murmurs noted Pulses: radial pulses bilaterally, dorsalis pedis present and equivalent bilaterally. Abdomen: Non-distended, soft, mild tenderness diffusely, ileostomy in place, stoma free of erythema and leakage, scattered ecchymosis and scarring over her abdomen. Extremities: Cool. No edema to extremities. Compression stockings and SCD's in place. Skin: Dry cracking skin diffusely on back and extremities, early pressure ulcer changes on sacrum and iliac. Abrasions to back and legs Taylor catheter in place Neuro: Able to move her extremities on her own volition, whispered speech, cranial nerves appear grossly intact IVs and Medications Medications Reviewed: Medications were reviewed in detail Lab and Diagnostics Result Diagram: 01/04/1744401/04/17444 X-Rays, CTs and MRIs Chest x-ray performed 01/03/2017 IMPRESSION: Persistent widespread airspace opacities, consistent with florid pulmonary edema and/or bronchopneumonia. Persistent trace dependent left pleural effusion. Dictated by: Maikol Guido M.D. on 01/03/2017 at 6:[address] without contrast performed 12/26/2016 IMPRESSION: 1. Severe bilateral pneumonia. 2. Small bilateral pleural effusions. 3. Opacification of the right lower lobe bronchus, consistent with mucous plugging. 4. Small amount of ascites. 5. Severe abdominal subcutaneous edema. 6. Findings discussed with Dr. Brandt on 12.26.16 at 1439 hrs. Dictated by: Calvin Bonds M.D. on 12/26/2016 at 14:[address] without contrast performed 12/26/2016 IMPRESSION: 1. No acute intracranial abnormality. Dictated by: Chris Heredia M.D. on 12/26/2016 at 8:25 CT ABDOMEN AND PELVIS WITHOUT CONTRAST IMPRESSION: 1. Free air is not identified. 2. Markedly distended colon suggesting distal colonic obstruction. Rectal tube may be of benefit. 3. Question of low-density stones versus particles of air in the gallbladder. Ultrasound is suggested. ADDENDUM: Additional information is that the patient has had a colectomy. The distended loops therefore must be small bowel. In addition there is an ileostomy rather an ileal loop into the right lower quadrant. In the operative from this is reportedly fairly good. This would indicate that C. dilated small bowel loops are related to a chronic low-grade obstruction or a relatively acute high-grade obstruction. No wall thickening or air in the tsai of the dilated loops is seen. Since the patient does not have obstructive symptoms clinically this is likely to be a distended loops from chronic partial low grade obstruction of a small bowel loop. Dictated by: Esteban Cabrera M.D. on 12/18/2016 at 18:44 US ABDOMEN, LIMITED IMPRESSION: Multiple stones in the gallbladder but no free air or changes to indicate acute cholecystitis. Dictated by: Esteban Cabrera M.D. on 12/18/2016 at 19:49 X-RAY ACUTE ABDOMINAL SERIES IMPRESSION: Changes are consistent with partial or early small bowel obstruction. Dictated by: Esteban Cabrera M.D. on 12/18/2016 at 20:37 Cardiac Echo Impressions Echocardiogram Interpretation Summary: The left ventricle is normal in size. The ejection fraction is estimated to be 30-35%. Except basal LV segments and apical segments which have preserved or slightly increased contractility, rest all the mid LV segments are severey hypokinetic to akinetic. This pattern favors atypical stress induced cardiomyopathy. The right ventricle is normal size.Right ventricular systolic function is at the lower limits of normal. There is moderate mitral regurgitation. There is mild to moderate tricuspid regurgitation. Right ventricular systolic pressure is estimated to be 25 mmHg plus the clinically estimated CVP which cannot be estimated on this exam. There are small-sized bilateral pleural effusions noted. The patient was in sinus bradycardia with heart rates between 57-58 bpm during the exam. . Additional Diagnostics Bronchoscopy FINDINGS: Normal appearing airways. Fluid is blood-tinged on the right and yellowish orange on the left, not consistent with alveolar hemorrhage. Samples of right upper lobe anterior segment, BAL and lingular BAL were both pooled, approximately 60 cc total. TESTING: BAL was pooled and sent for bacterial, fungal, AFB, pneumocystis, viral cultures, as well as cytology and cell count with differential. Loraine Vo MD 12/26/16 4588 Limited ileoscopy with stoma balloon dilatation under fluoroscopy: ENDOSCOPIC DIAGNOSES: 1. Severe stomal stenosis. 2. 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 3. Successful stomal dilatation to 12 mm. RECOMMENDATIONS: 1. After again cleaning the skin, application of the ostomy bag is to be performed in the ICU. 2. Continue full liquid diet. 3. As long as there are no apparent hemorrhagic complications, I think it would be fine to continue the fondaparinux this evening. 4. Dr. Abbott is planning on placing the right IJ for central access this evening and once this is in position, TPN should immediately be Kirby Valdez MD 12/24/16 [id number] . Assessment & Plan Patient is an 31 year old woman that recently moved to the [facility] from the [facility] with a complex history of Crohn's disease s/p total proctocolectomy with end ileostomy performed at [facility] in [place], [place]. She is on chronic glucocorticoids with Humira therapy, multiple prior obstructions/near obstructions near ostomy, recurrent flares, and recent left UE DVT secondary to PICC placement for TPN, who presented to the ED 2016 with acute on chronic diffuse abdominal pain, vomiting, and nausea. on hospital day 7 patient developed acute hypoxic respiratory failure and was transferred to the ICU. Hospital day 18 ICU day 12 was on a ventilator for 5 days Antibiotics/Antifungal day 9 Summary of prolonged hospital stay She has numerous confounding medical problems, most pertinent at this time is the acute hypoxic respiratory failure, which all infectious disease studies performed have been negative for. The most likely cause is diffuse pulmonary edema and acute respiratory distress syndrome, this is being attributed to capillary leak, and cardiac failure secondary to stress-induced cardiomyopathy and cardiac cachexia. She is being given TPN, and diuresed daily. Due to her diuresis she has had persistently low serum potassium which has needed to be replaced daily. Both surgical and gastroenterology are following the patient with recommendations on feedings. As it stands, the plan is for surgery to place a Groshong's catheter for TPN once her respiratory problems have stabilized. Gastroenterology is doing trickle feeds if bowel inflammation subsides. She has failed swallow studies to date, with witnessed aspiration, however is allowed to have ice chips and water. 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 Below is itemized plan with further details. 1. Acute hypoxemic respiratory failure, not present on admission, improving. - Most likely due to fluid overload evidenced on x-ray has diffuse edema however , ARDS with capillary leak, fungal or atypical infection, cardiac etiology, and refeeding syndrome are differentials. - Nasal cannula and OxyMask with BiPAP as needed to maintain O2 saturation 90-94 % - Continue with diuresis per problem 2. - Cardiac etiology: Echocardiogram: Ejection fraction 25-30%, stress-induced cardiomyopathy, cardiac cachexia. - Infectious etiology: Chest CT without contrast demonstrated Severe bilateral pneumonia, small bilateral pleural effusions, opacifications consistent with mucous plugging. Zosyn stopped 12/30/16. Bactrim IV prophylaxis for pneumocystis per Infectious Disease. Serum CMV PCR is positive. May be a result of being critically ill per Dr. Bynum. Will elect not to treat with ganciclovir at this time. Discuss with ID tomorrow, 01/05/17. - Cardiology, critical care pulmonology, general surgery, and gastroenterology following. We appreciate the expertise. - Will monitor I&O's closely. - ABGs with changes in respiratory status. 2. Acute systolic congestive heart failure, not present on admission, management ongoing. - Echocardiogram reevaluation by Dr. Yeung stated ejection fraction 25-30%, stress- induced cardiomyopathy, and cardiac cachexia. - Continue dobutamine drip at 3mcg. - Continue gentle diuresis. Furosemide 20mg IV Q8H - In regards to concern for vesicoenteric fistula, GI consult states pressure gradient would favor fecal matter in urine rather than urine in fecal matter, urine remains clear. 3. Acute hypokalemia, not present on admission, Improved. - Replete prophylactically and as needed with IV Potassium. - Consider spironolactone if third line option is necessary. - Continue to monitor with BMP 4. Acute anemia, not present on admission. Stable. - Hemoglobin continues to be low, stable. - Fluid status has improved. NO bleeding or ecchymosis. - 2 units of packed red blood cells were transfused (12/25/16). - Continue to monitor CBC. 5. Acute transaminitis, not present on admission, stable. - ALT and AST tripled on 12/31/2016, Remain elevated without worsening, currently trending down - Potential causes include TPN, Bactrim, and hepato congestion due to when Dobutamine was briefly held overnight before they azalea. - Pharmacy has reviewed medication list, Bactrim or TPN may be the cause so changes to lipids content were made to have the patient with lipids every other day but patient is still receiving 115% of daily caloric needs for weight gain. - Continue to monitor with CMP. 6. Crohn's disease with RLQ high output Ileostomy with severe protein/calorie malnutrition, present on admission, Stable. - Continue prednisone, hold Humira. 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 - Tube feeds discontinued per gastroenterology recs for bowel rest as patient's colon is inflamed (12/31/16). If patient passes swallow study could consider a smoothie diet at this time. - TPN for a total of 110-120% daily caloric requirements. Additional micronutrients added. - Gen. surgery has been consulted Groshong catheter for long-term TPN placement once patient is more stable. - Based on gastroenterology's recommendations we have low threshold to repeat abdominal x-ray with increased pain/or mild distention. 7. Acute aspiration, not present on admission, improving. - Patient was receiving oral food, she began to cough and it was perceived that she was aspirating (01/01/17), - Infectious disease was notified, patient restarted on Zosyn IV, she completed 3 days. STOPPED Zosyn. - Will plan for speech therapy to evaluate again, as patient improves. 8. Thrombocytopenia, acute, not present on admission. Resolved. - She continues on a stress dose of hydrocortisone decreased to 50 mg IV Q12. - Fondaparinux has been discontinued. She has completed 2 full months of treatment for DVT. 9. Fever, acute - resolved. - Remained afebrile. - Zosyn discontinued.On Bactrim prophylactically due to immunosuppressed state. 10. Hypovolemic hyponatremia, chronic, present on admission - resolved. - Patient's volume status has been repleted, sodium has returned to normal levels. - Continue to monitor BMP. 11. Abdominal pain in the setting of Crohn's disease s/p total proctocolectomy with RLQ ileostomy, acute, present on admission - Likely due to strictures and obstruction and enteroenteric fistula. - Abdominal pain is chronic, currently controlled with analgesics. - Continue to monitor. 12. Early or partial small bowel obstruction, acute, present on admission - Most recent abdominal imaging shows evidence of developing small bowel obstruction and other strictures. She is still having ostomy output, although mostly just liquids. Status post stomal dilation December 24 - GI consulted, will continue to follow, appreciate time and input. - Surgery consulted and following. Appreciate time and input. - Patient receiving TPN and tolerating this so far. 13. Hypochromic microcytic anemia, likely iron deficiency, chronic, present on admission - Due to poor oral intake and poor nutritional status - Consider iron supplementation as outpatient - Continue to monitor CBC. 14. Anxiety and Depression, chronic, presume stable. - Patient's anxiety and depression are related to significant chronic disease condition, but creating significant morbidity none the less. - Continue lorazepam 0.5 mg IV push PRN q3H. - Continue fluoxetine 20 mg HS. 15. Likely Oral Candidiasis, acute, present on admission, improved. - Secondary to Prednisone usage. - Continue to monitor closely. - Completed course of Nystatin PO. Discontinued 01/04/17. - Antiemetic available PRN. - Bowel regimen available PRN. Disposition: Anticipate several more days in the CCU due to low blood pressures necessitating pharmacologic IV support. Hospital course difficult to anticipate , may require transfer to tertiary receiving facility. Prior to discharge will need placement of Groshong catheter for TPN administration. GI Prophylaxis: H2 luis carlos VTE Prophylaxis: Sub-Q Heparin (Unfractionated) VTE Mechanical Devices: Intermittant Pneumatic CD, Anti-Embolic stockings Resuscitation Status: CPR: Attempt Resuscitation Time spent Greater than 35 minutes Attending Statement The patient was seen and examined together with Dr. Keller on 01/04/17 and I agree with the history, exam and plan as outlined in the note above. Anabella Keller DO Jan 04, 2017 12:41 Trena Lauren DO Jan 04, 2017 15:38
--- NOTE | 2017-01-04 13:37 | PROG NOTE ---
[address] [address] PROGRESS NOTE PATIENT: MAE FELIZ : 1985 MR#: [id number] ADMIT: 12/18/2016 JOB ID: [id number] DATE: 01/04/2017 SUBJECTIVE: Overall, patient has a little more energy but still feels profoundly fatigued. She was started on the thiamine 25 mg IV yesterday. OBJECTIVE: The patient is much more vocal. She is on face mask oxygen this morning. Heart rate 108. Breathing is a little elevated on the face mask. Blood pressure 119/85, 98% oxygen saturation. Abdomen is soft. Bowel sounds hypoactive, but present. LABORATORY DATA: I noticed that her CMV DNA qualitative came back. She continues to have mildly elevated liver tests, but they are improved. Albumin is 3.4, creatinine 0.30. Hemoglobin 8.4, white count 5.3, platelets 281. IMAGING: X-ray continues to show severe bilateral, what is described as pneumonia/ARDS. ASSESSMENT AND RECOMMENDATIONS: This is a 31-year-old with complex Crohn's. Severe protein calorie malnutrition. With the initiation of TPN, she has developed signs of stress-induced cardiomyopathy and overt failure. Continue full nutrition support. Again, I am concerned about the possibility of a development of a wet beriberi-type situation and would recommend we continue with the IV thiamine. The patient should be allowed smoothie diet as tolerated by mouth. I would defer to Dr. Bynum as to how to proceed with the CMV PCR data. Will continue to follow.
--- NOTE | 2017-01-04 14:01 | PROG NOTE ---
[address] [address] PROGRESS NOTE PATIENT: MAE FELIZ : 1985 MR#: [id number] ADMIT: 12/18/2016 JOB ID: [id number] DATE: 01/04/2017 PULMONARY CRITICAL CARE PROGRESS NOTE: The patient is a 31-year-old woman with severe Crohn disease. Plan immunosuppression with Humira and steroids, ileostomy stomal stenosis, admitted to the ICU with acute respiratory failure and ARDS due to Takotsubo cardiomyopathy. INTERVAL HISTORY: She remains on BiPAP alternating with nasal cannula now. Oxygenation seems to be improving slowly. She is progressing also on her swallow evaluation. Dobutamine is being continued. REVIEW OF SYSTEMS: Still has some shortness of breath and cough with sputum but improving. Abdominal pain is stable compared to her prior baseline. PHYSICAL EXAMINATION: Vital signs reviewed. T-max of 37.1, pulse 108, respirations 28. BP 119/85. Sats 98% on 4 L nasal cannula. General: Thin, cachectic young woman who is slightly tachypneic at rest but speaking full sentences. Chest: Bilateral rhonchi. LABORATORIES: Reviewed. WBC normal. Hemoglobin up to 8.4 from 7.1, with 1 unit transfused yesterday. Chemistry is within normal limits. Chest x-ray reviewed and shows persistent bilateral infiltrates not significantly different than prior. ASSESSMENT AND RECOMMENDATIONS: 1. Acute hypoxic respiratory failure--due to ARDS from capillary leak with TPN/albumin and cardiogenic pulmonary edema from Takotsubo cardiomyopathy. 2. Takotsubo cardiomyopathy with EF 30%. 3. Acute hypoxic respiratory failure, on BiPAP currently--She was on mechanical ventilation from December 26 to December 31. 4. Crohn disease, on Humira and steroids, with ileostomy stomal stenosis. 5. Severe protein calorie malnutrition. 6. Upper extremity PICC associated DVT in October 2016, for which he has completed two months of fondaparinux. 7. Thrombocytopenia--Attributed to fondaparinux, now resolved off anticoagulation. This 31-year-old woman with severe Crohn disease was admitted with problems due to stenosis of stoma. After starting TPN, she developed respiratory distress that has been attributed to a combination of capillary leak from sudden change in oncotic pressure and echo showing Takotsubo cardiomyopathy with EF of 30%. She was on mechanical ventilation with ARDS from December 26 to , and has been extubated to BiPAP alternating with nasal cannula/OxyMask. She is very slowly improving. We have continued dobutamine because after a brief period of stopping dobutamine, she had sudden severe worsening of her pulmonary infiltrates. So, for now, she has been on dobutamine 3 mcg and there is no plan to stop this. We do need to speak to Cardiology at some point about how to transition this to an oral regimen such as digoxin? She has also been getting Lasix--I restarted 20 mg IV q.8 yesterday, and with this, she is still about net even to slightly net positive but stable from a respiratory standpoint. Her electrolytes are okay. I did give her a dose of potassium as well yesterday. She has not developed a contraction alkalosis and her bicarb is 20 still. Will discontinue this dose for now. She is on Bactrim for PCP prophylaxis and is on no other antibiotics. Bronchoscopy from December 26 has been completely negative on all cultures. Dr. Argueta takes over the pulmonary service tomorrow. CRITICAL CARE TIME: 40 minutes.
[2017-01-04] MEDS: 0.9% Sodium Chloride 1,000 ML IV SCH (14:14)
[2017-01-04] MEDS: DOBUTamine 500 mg/250 D5W 500,000 MCG in IV Premix 1 EACH IV SCH (14:14)
[2017-01-04] MEDS: Total Parenteral Nutrition 1 BAG IV SCH (20:32)
[2017-01-04] MEDS: Ipratropium 0.02% 0.5 mg/2.5 mL Inhalation Solution NEB PRN (21:31)
[2017-01-05] MEDS: HYDROmorphone 0.5 mg/0.5 mL iSecure Syringe IVPUSH PRN ×4 (00:47→14:32)
[2017-01-05 03:59] VITALS: BP 115/87; PULSE 90; RESP 22; O2SAT 94
[2017-01-05] MEDS: Furosemide 10 mg/mL 2 mL Inj IVPUSH SCH ×2 (04:01→11:17)
[2017-01-05 04:28] LABS: BASOPHILS % (AUTO) 0 % (0-3); EOSINOPHILS % (AUTO) 0 % (0-5); MONOCYTES % (AUTO) 2.5 % (4-12); Mean Corpuscular Volume 82.1 fL (81-100); NEUTROPHILS % (AUTO) 92.2 % (40-74); Platelet Count 277 bil/L (150-400)
[2017-01-05 05:00] LABS: Magnesium 2.2 mg/dL (1.6-2.6); Phosphorus 2.9 mg/dL (2.5-4.9)
[2017-01-05] MEDS ORDERED: KCl 40 mEq/100 mL Premix (K 3 - 3.7 & Creat < 2) IV ONE (06:05)
[2017-01-05] MEDS: DEXTROSE 5% IV SCH ×2 (07:32→09:49)
[2017-01-05] MEDS: Hydrocortisone 50 mg/mL 2 mL Inj IVPUSH SCH (07:32)
[2017-01-05] MEDS: Heparin 5,000 Unit/mL Inj SUBQ SCH (07:32)
[2017-01-05] MEDS: Famotidine Inj 20 MG in IV Premix 1 EACH IV SCH (07:32)
[2017-01-05] MEDS: THIAMINE IV SCH (07:32)
[2017-01-05 08:00] VITALS: BP 121/94; PULSE 100; PULSE 85; RESP 25; O2SAT 99
[2017-01-05] MEDS: TRIMETHOPRIM SULFA IV SCH (09:49)
--- NOTE | 2017-01-05 10:49 | PCM.PHAPRO ---
Progress TPN PARENTERAL NUTRITION ORDERS 14 05-Jan-17 Standard Hang Time: 2100 Substrates Total kcal: 1440 AMINO ACIDS 65 g DEXTROSE 200 g Total Volume (mL): 1200 LIPIDS 50 g Sterile Water for Injection QS mL To Infuse Over (hrs): 24 Total Volume 1200 mL At at a rate of (mL/hr): 50 Additives Sodium Chloride 30 mEq "typical" daily requirements Sodium Acetate 10 mEq Sodium 50-120mEq Potassium Chloride 80 mEq Potassium 60-120mEq Potassium Phosphate 35 mEq Phosphate 20-40mEq Calcium Gluconate 4.5 mEq Magnesium 8-32mEq Magnesium Sulfate 12 mEq Calcium 9-22mEq Acetate* 80-120mEq Chloride* 80-120mEq Regular Insulin units *Depending on acid-base status Famotidine mg Multivitamins 1 std dose Insulin Regimen Trace Elements 1 std dose none Thiamine 50 mg Regular Low Intensity Subcut Folic Acid 1 mg Regular Medium Intensity Subcut Ascorbic Acid 1000 mg Regular High Intensity Subcut Regular Insulin Infusion Other: Special Instructions: To be infused via central line only. For delay or inturruption of TPN contact the pharmacist for alternative replacement solution. IV LIPID 50grams on EVERY OTHER DAY Lam Salmeron Pharm D Jan 05, 2017 10:49
[2017-01-05 12:00] VITALS: BP 126/88; PULSE 100; RESP 26; O2SAT 99
[2017-01-05] MEDS: DOBUTamine 500 mg/250 D5W 500,000 MCG in IV Premix 1 EACH IV SCH (13:42)
--- NOTE | 2017-01-05 14:00 | PCM.DC.MED ---
Discharge Summary Date of Service Jan 05, 2017 Dates of Hospitalization Date of Hospital Admission Dec 18, 2016 at 19:23 Date of Discharge: Jan 05, 2017 Providers: Admitting Physician: Juwan Red MD Primary Care Physician: Elissa Arteaga DO Attending Physician: Vj Brownlee MD Diagnosis at Time of Discharge Diagnosis at Time of Discharge 1. Crohn disease 2. Severe protein/caloric malnutrition 3. Dobutamine dependent heart failure 4. ARDS/Pulmonary edema Consultations Pulmonary/Route Sales Representative ASSESSMENT AND RECOMMENDATIONS: 01/05/2017 1. Acute hypoxic respiratory failure--due to ARDS from capillary leak with TPN/albumin and cardiogenic pulmonary edema from Takotsubo cardiomyopathy. 2. Takotsubo cardiomyopathy with EF 30%. 3. Acute hypoxic respiratory failure, on BiPAP currently--She was on mechanical ventilation from December 26 to December 31. 4. Crohn disease, on Humira and steroids, with ileostomy stomal stenosis. 5. Severe protein calorie malnutrition. 6. Upper extremity PICC associated DVT in October 2016, for which he has completed two months of fondaparinux. 7. Thrombocytopenia--Attributed to fondaparinux, now resolved off anticoagulation. This 31-year-old woman with severe Crohn disease was admitted with problems due to stenosis of stoma. After starting TPN, she developed respiratory distress that has been attributed to a combination of capillary leak from sudden change in oncotic pressure and echo showing Takotsubo cardiomyopathy with EF of 30%. She was on mechanical ventilation with ARDS from December 26 to , and has been extubated to BiPAP alternating with nasal cannula/OxyMask. She is very slowly improving. We have continued dobutamine because after a brief period of stopping dobutamine, she had sudden severe worsening of her pulmonary infiltrates. So, for now, she has been on dobutamine 3 mcg and there is no plan to stop this. We do need to speak to Cardiology at some point about how to transition this to an oral regimen such as digoxin? She has also been getting Lasix--I restarted 20 mg IV q.8 yesterday, and with this, she is still about net even to slightly net positive but stable from a respiratory standpoint. Her electrolytes are okay. I did give her a dose of potassium as well yesterday. She has not developed a contraction alkalosis and her bicarb is 20 still. Will discontinue this dose for now. She is on Bactrim for PCP prophylaxis and is on no other antibiotics. Bronchoscopy from December 26 has been completely negative on all cultures. Dr. Argueta takes over the pulmonary service tomorrow. CRITICAL CARE TIME: 40 minutes. Heel Gummer ASSESSMENT AND PLAN: 01/03/17 1415 A 31-year-old female with complicated Crohn's. She has had a prior total proctocolectomy with permanent end ileostomy. She has suffered a consequence of severe stomal stenosis and has had progressive severe protein calorie malnutrition. With the eventual addition of the TPN, she developed symptoms of severe heart failure. I will confirm that there is enough thiamine in her nutrition. I would certainly be concerned about wet beriberi. Otherwise continue supportive care for now. If the patient is able to pass a swallow evaluation, then I would start smoothie diet. Otherwise, the patient may need at least a temporary Dobbhoff for trickle tube feeds to be re-initiated again. Kirby Valdez MD Procedures XRay, CTs & MRIs Chest x-ray performed 01/03/2017 IMPRESSION: Persistent widespread airspace opacities, consistent with florid pulmonary edema and/or bronchopneumonia. Persistent trace dependent left pleural effusion. Dictated by: Maikol Guido M.D. on 01/03/2017 at 6:[address] without contrast performed 12/26/2016 IMPRESSION: 1. Severe bilateral pneumonia. 2. Small bilateral pleural effusions. 3. Opacification of the right lower lobe bronchus, consistent with mucous plugging. 4. Small amount of ascites. 5. Severe abdominal subcutaneous edema. 6. Findings discussed with Dr. Brandt on 12.26.16 at 1439 hrs. Dictated by: Calvin Bonds M.D. on 12/26/2016 at 14:[address] without contrast performed 12/26/2016 IMPRESSION: 1. No acute intracranial abnormality. Dictated by: Chris Heredia M.D. on 12/26/2016 at 8:25 CT ABDOMEN AND PELVIS WITHOUT CONTRAST IMPRESSION: 1. Free air is not identified. 2. Markedly distended colon suggesting distal colonic obstruction. Rectal tube may be of benefit. 3. Question of low-density stones versus particles of air in the gallbladder. Ultrasound is suggested. ADDENDUM: Additional information is that the patient has had a colectomy. The distended loops therefore must be small bowel. In addition there is an ileostomy rather an ileal loop into the right lower quadrant. In the operative from this is reportedly fairly good. This would indicate that C. dilated small bowel loops are related to a chronic low-grade obstruction or a relatively acute high-grade obstruction. No wall thickening or air in the tsai of the dilated loops is seen. Since the patient does not have obstructive symptoms clinically this is likely to be a distended loops from chronic partial low grade obstruction of a small bowel loop. Dictated by: Esteban Cabrera M.D. on 12/18/2016 at 18:44 US ABDOMEN, LIMITED IMPRESSION: Multiple stones in the gallbladder but no free air or changes to indicate acute cholecystitis. Dictated by: Esteban Cabrera M.D. on 12/18/2016 at 19:49 X-RAY ACUTE ABDOMINAL SERIES IMPRESSION: Changes are consistent with partial or early small bowel obstruction. Dictated by: Esteban Cabrera M.D. on 12/18/2016 at 20:37 Cardiac Echo Impression Echocardiogram Interpretation Summary: The left ventricle is normal in size. The ejection fraction is estimated to be 30-35%. Except basal LV segments and apical segments which have preserved or slightly increased contractility, rest all the mid LV segments are severey hypokinetic to akinetic. This pattern favors atypical stress induced cardiomyopathy. The right ventricle is normal size.Right ventricular systolic function is at the lower limits of normal. There is moderate mitral regurgitation. There is mild to moderate tricuspid regurgitation. Right ventricular systolic pressure is estimated to be 25 mmHg plus the clinically estimated CVP which cannot be estimated on this exam. There are small-sized bilateral pleural effusions noted. The patient was in sinus bradycardia with heart rates between 57-58 bpm during the exam. . Other Diagnostics Bronchoscopy FINDINGS: Normal appearing airways. Fluid is blood-tinged on the right and yellowish orange on the left, not consistent with alveolar hemorrhage. Samples of right upper lobe anterior segment, BAL and lingular BAL were both pooled, approximately 60 cc total. TESTING: BAL was pooled and sent for bacterial, fungal, AFB, pneumocystis, viral cultures, as well as cytology and cell count with differential. Loraine Vo MD 12/26/16 1524 Limited ileoscopy with stoma balloon dilatation under fluoroscopy: ENDOSCOPIC DIAGNOSES: 1. Severe stomal stenosis. 2. 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 3. Successful stomal dilatation to 12 mm. RECOMMENDATIONS: 1. After again cleaning the skin, application of the ostomy bag is to be performed in the ICU. 2. Continue full liquid diet. 3. As long as there are no apparent hemorrhagic complications, I think it would be fine to continue the fondaparinux this evening. 4. Dr. Abbott is planning on placing the right IJ for central access this evening and once this is in position, TPN should immediately be Kirby Valdez MD 12/24/16 6488 . Brief History This is a A 31 year old female with a history of Crohn's disease , s/p total colectomy 10 years ago, s/p ileostomy who presents to the ED complaining of dehydration and abdominal pain. Pain as stabbing like and burning like locate mainly at her left flank and around her ileostomy bag area. Associated symptoms include nausea, chills, and difficulty keeping food down. She was discharged 2 days ago after receiving treatment for exacerbated Crohn's disease. She was sent home with a feeding tube in place that she took out on the same day. Mother at bedside endorses her story and stated she was unable to tolerate the discomfort of her NGT. She wasn`t been able to eat a lot but was drinking Pedialyte but not a lot, or at least not enough to maintain her nutritional need and adequate hydration . . . She denies any fever, sweats, or hematochezia. No chest pain, no shortness of breath. 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 section Low grade TETO status post colposcopy Home Medications No list available; patient reports - Prednisone 20mg daily - Roxicodone - Percocet - Humira, last dose 12/12 - Fondaparinux Hospital Course Terra Beauchamp is a 31yof with a complex MHx significant for Crohn's disease status post total proctocolectomy with end ileostomy performed at [facility] in [place], [place]. She was on chronic glucocorticoids and Humira, with multiple prior obstructions and near obstructions, recurrent flares, and recent left UE DVT secondary to PICC placement for TPN, who presented to [facility] Emergency Department on 12/18/2016 with worsening abdominal pain, dehydration 2nd to ileostomy stomal stricture who developed acute hypoxemic respiratory failure, intubated, now on intermitted BiPAP. She was found to have dilated cardiomyopathy with an EF 30-35% requiring continuous dobutamine drip. Patient requires higher acuity of care 2nd to dobutamine dependent heart failure and is transfer to [facility] ICU to accepting Dr. Vlad Leggett Problem list 1. Crohn disease 2. Severe protein/caloric malnutrition 3. Dobutamine dependent heart failure 4. ARDS/Pulmonary edema HFrEF (30-35%) - Dobutamine dependent heart failure, ACC Stage D. Patient went into pulmonary edema when dobutamine was off overnight. - Uncertain etiology. possible Takotsubo, cathexic cardiomyopathy, and/or beri- beri in the setting of severe Crohn disease - Will need advance heart failure therapy Crohn Disease - hx of S/p total proctocolectomy, ileostomy on chronic Humira and prednisone 20mg daily - Restarted steroids (hydrocortisone), holding Humira. Will need GI to weight in the need for Humira vs risk of infections. Pt on TPN, PCP prophylaxis w/ Bactrim - Pt has repeated history of ileostomy stomal stenosis and received stomal balloon dilation on this admission. 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 - Currently on TPN with central line in place. Minimal oral intake of smoothies. Strong risk for aspiration given cachectic state and intermitted BiPAP - TPN formulation including micronutrient will need to be address. LFT mildly elevated. May also benefit from Gro[place]ong catheter for her for long-term TPN - Had Dobbhoff in the past, unable to maintain protein/caloric needs, severely dehydrate on admission ARDS/Pulmonary Edema - Intermitted BiPAP needed. - Currently on Lasix 20mg TID Exam Vital Signs (Last) Date Time Temp Pulse Resp B/P Pulse Ox O2 Delivery O2 Flow Rate FiO2 01/05/17 08:00 100 01/05/17 08:00 Supplement Oxygen CPAP/BIPAP 01/05/17 08:00 37.4 25 121/94 99 6.00 01/04/17 21:32 28 Exam General: Frail, cachetic; on BPAP in CCU; no distress noted this morning Head: Atraumatic; cushinoid-facies; sclera anicteric Neck: Right IJ in place with bandages clean/dry and intact with minimal leakage Nose: Mucous Membr Moist/[place] Mouth: Mucous Membr dry Chest & Lungs: Adequate air flow; faint coarse sounds, but improved Cardiovascular: Tachycardic at time of evaluation with rate approx 90-100 Pulses: Radial (equal and bilateral) Abdomen: Mildly tender, soft; ostomy site free of erythema; output liquid green -brown dark stool with gas, no evidence edy blood; hypoactive sounds continue : Taylor present and secured Extremities: Warm; no edema noted BLLE, compression socks and SCDs in place, without noted edema proximal to SCD; BLUE edema resolved; ecchymosis left wrist Skin: Warm and dry, sacral region erythematous. at risk for decubitus ulcer Neurological: CNII-XII grossly intact; answers questions appropriately Psych: Appropriate mood, affect, and responses to questioning; limited insight and judgment based on history of noncompliance Test 12/18/16 16:30 12/22/16 10:28 12/22/16 11:03 12/23/16 23:26 Erythrocyte Sedimentation Rate 10mm/hr (0-32) Urine HCG, Qualitative Negative (Negative) Urine Osmolality 646mOs/kH2O (250-1200) Urine Random Sodium < 10mEq/L Ionized Calcium 1.04mmol/L (1.17-1.32) Test 12/24/16 12:35 12/25/16 03:55 12/25/16 14:30 12/25/16 16:12 Urine Color Yellow (YELLOW) Urine Appearance Hazy (CLEAR,HAZY) Urine pH 6.0 (5.0-8.0) Urine Specific [place] 1.020 (1.003-1.035) Urine Protein Negativemg/dL (NEG,TRACE) Urine Glucose (UA) Negativemg/dL (NEGATIVE) Urine Ketones Negativemg/dL (NEGATIVE) Urine Occult Blood Negative (NEGATIVE) Urine Nitrite Negative (NEGATIVE) Urine Bilirubin Negative (NEGATIVE) Urine Urobilinogen Normalmg/dL (NORMAL) Urine Leukocyte Esterase Trace (NEGATIVE) Urine RBC 0-2/hpf (0-2) Urine WBC 6-10/hpf (0-5) Urine Epithelial Cells Occasional/hpf (NONE-MOD) Urine Crystals None seen (NONE SEEN) Urine Bacteria Moderate/hpf (NONE-FEW) Urine Hyaline Casts None/lpf (NONE) Urine Granular Casts None seen (NONE SEEN) Urine Waxy Casts None seen (NONE SEEN) Urine Red Blood Cell Casts None seen (NONE SEEN) Urine White Blood Cell Casts None seen (NONE SEEN) Urine Mucus Present (None Seen) Urine Trichomonas None seen (NONE SEEN) Urine Yeast None (NONE SEEN) Urinalysis Comment Transitional epi Urine Culture Reflexed Indicated Band Neutrophils % 2% (1-5) Lactic Acid Level 1.0mmol/L (0.4-2.0) Cryptococcus Antigen Negative (Negative) Urine Histoplasma Antigen 0.00ng/mL (0.00-0.49) Test 12/26/16 06:54 12/26/16 16:24 12/26/16 17:15 12/27/16 14:10 Ionized Calcium (Calculated) 4.47mg/dL (3.5-5.2) Body Fluid Source Bronchial washing Body Fluid Color Dark yellow (Clear) Body Fluid Appearance Turbid Body Fluid WBC 85/mm3 Body Fluid RBC 7600/mm3 Body Fluid Polynuclear WBCs 43% Body Fluid Lymphocytes 30% Body Fluid Monocytes 27% Body Fluid Eosinophils 0% Body Fluid Basophils 0% Myeloperoxidase <9.0U/mL (0.0-9.0) Anti-Nuclear Antibody Screen Negative (Negative) Cytoplasmic ANCA (c-ANCA) Antibody <1:20titer (Neg:<1:20) Proteinase 3 (PR3) Antibodies <3.5U/mL (0.0-3.5) Atypical p-ANCA <1:20titer (Neg:<1:20) Perinuclear ANCA (p-ANCA) Antibody <1:20titer (Neg:<1:20) Hold Purple Top Tube Received (Received) Test 12/29/16 10:00 12/30/16 04:30 12/31/16 05:14 12/31/16 12:25 Heparin-PF4 Ab Optical Density 0.070OD (<0.4) Heparin-PF4 Antibody Interpretation Not indicated HIV (1&2) Ag and Ab, 4th Generation Non reactive (Non Reactive) Prealbumin 12mg/dL (20-40) Lactate Dehydrogenase 288U/L (100-190) Triglycerides Level 56mg/dL (0-149) Procalcitonin 0.08ng/mL (0.00-0.08) Cytomegalovirus DNA Qual (PCR) Positive (Negative) Hold [place] Top Tube Received (Received) Fungal Antibodies 56pg/mL (<80) Test 01/05/17 04:10 01/05/17 11:41 White Blood Count 6.0th/mm3 (3.8-10.1) Red Blood Count 3.08mil/mm3 (3.90-5.20) Hemoglobin 8.0g/dL (12.0-15.6) Hematocrit 25.3% (35.0-46.0) Mean Corpuscular Volume 82.1fL (81-100) Mean Corpuscular Hemoglobin 26.0pg (27.0-35.0) Mean Corpuscular Hemoglobin Concent 31.6% (32.0-37.0) Red Cell Distribution Width 19.3% (12.3-15.4) Platelet Count 277bil/L (150-400) Neutrophils (%) (Auto) 92.2% (40-74) Lymphocytes (%) (Auto) 5.0% (14-46) Monocytes (%) (Auto) 2.5% (4-12) Eosinophils (%) (Auto) 0% (0-5) Basophils (%) (Auto) 0% (0-3) Sodium Level 140mEq/L (134-144) Chloride Level 103mEq/L (97-108) Carbon Dioxide Level 21mmol/L (18-29) Blood Urea Nitrogen 30mg/dL (6-20) Creatinine < 0.30mg/dL (0.57-1.00) Estimat Glomerular Filtration Rate 372mL/min (>59) Glucose Level 112mg/dL (60-99) Calcium Level 8.6mg/dL (8.5-10.1) Phosphorus Level 2.9mg/dL (2.5-4.9) Magnesium Level 2.2mg/dL (1.6-2.6) Total Bilirubin 0.9mg/dL (0.0-1.2) Aspartate Amino Transf (AST/SGOT) 32U/L (0-50) Alanine Aminotransferase (ALT/SGPT) 94U/L (0-32) Alkaline Phosphatase 188U/L (25-150) Total Protein 6.4g/dL (6.4-8.4) Albumin 3.3g/dL (3.4-5.0) Potassium Level 4.0mEq/L (3.5-5.2) Discharge Medications Discharge Medications Adalimumab (Humira) 40 Mg/0.8 Ml Pen.ij.kit 40 MG SQ r1mwxmn (Reported) Ascorbate Calcium (Vitamin C) 500 Mg Tablet 500 MG PO DAILY (Reported) Dicyclomine (Bentyl) 10 Mg Capsule 10 MG PO QID Prescribed by: LASHA PRATHER DO Fondaparinux Sodium (Arixtra) 5 Mg/0.4 Ml Syringe 5 MG SUBQ HS (Reported) Multivit with Calcium,Iron,Min (Therapeutic M) 1 Each Tablet 1 EACH PO DAILY ( Reported) Oxycodone (Roxicodone) 5 Mg Tablet 15 MG PO BID (Reported) Prednisone (PredniSONE) 10 Mg Tablet 20 MG PO QAM (Reported) As needed Lorazepam (Lorazepam) 1 Mg Tablet 1 MG PO TID PRN PRN For Anxiety (Reported) Promethazine (Promethazine) 12.5 Mg Tablet 6.25 MG PO Q6H PRN PRN For Nausea ( Reported) Followup Plan Discharge Diet: Other (TPN, oral smoothies as tolerated) Attending Statement The patient was seen and examined together with Dr. Hill on and I agree with the history, exam and plan as outlined in the note above. copies to: Elissa Arteaga,Richard H Jan 05, 2017 14:00 Samir Argueta MD February 05, 2017 17:22
[2017-01-05] MEDS ORDERED: THIAMINE IV SCH (14:30)
[2017-01-05] MEDS ORDERED: DEXTROSE 5% IV SCH (14:30)
--- NOTE | 2017-01-05 21:59 | PROG NOTE ---
[address] [address] PROGRESS NOTE PATIENT: MAE FELIZ : 1985 MR#: [id number] ADMIT: 12/18/2016 JOB ID: [id number] DATE: 01/05/2017 SUBJECTIVE: Overall, the patient feels slightly improved today. She feels less congested and is able to speak much more forcefully. She, however, remains dependent on the dobutamine drip. The patient has been accepted down at the [facility] for transfer. OBJECTIVE: Temperature this afternoon 37.2, blood pressure 126/88, breathing a little rapidly 26, pulse 100, 99% on BiPAP. As mentioned above, the patient's voice was much more forceful and authoritative over the last 48 hours. She is tolerating a small amounts of full liquid diet. Abdomen is not distended. Was not painful to palpation but bowel sounds were again hypoactive today. The last 24 hours describes 700 mL of stool output into the stoma bag. This is largely liquid. Her white count is 6.0, hemoglobin is 8.0, platelets 277. The patient received blood transfusion yesterday. Creatinine 0.30. Potassium normal. BUN 30. Alk phos 188. ALT 94. AST 32. Bilirubin 0.9. Albumin 3.3. Micro: The CMV positive DNA, qualitative PCR result was reviewed by the primary team and it sounds like there was a determination to not proceed with therapy. ASSESSMENT AND PLAN: A 31-year-old female with severe complex complicated Crohn's. She has a history of total proctocolectomy with permanent end ileostomy. She has developed severe protein calorie malnutrition and clinically worsened quite substantially with the initiation of the TPN. She has manifest profound cardiac failure and is dependent on dobutamine. From a GI standpoint, I would continue to recommend we hold off on continuation of biologic therapy. The patient should really only remain on stress dose steroids considering she has been on intermittent steroids for quite some time. I would like to see her using the gut as much as she can tolerate. However, with the severe stomal stenosis, this is really limited to a liquid consistency diet. She may still require periodic stomal dilatation, however, none appears to be necessary acutely. The luo issue has always been nutrition and efforts to get her to a point where she could even conceivably be considered for surgical revision of the right lower quadrant stoma and probable enteroenteric fistulae. She will therefore require ongoing TPN and aggressive cardiopulmonary care. Because the TPN does not carry any thiamin in it, she has been commenced on regular supplemental IV thiamin. I certainly agree with transfer down to the [facility] for ongoing management of these very complex challenging issues for the patient. I have put a page out to Dr. Dominic Zaidi earlier this afternoon to verbally sign out to him. If I do not touch base with him, I will try again with the on-call machine room operator who will likely be involved in immediate consultation down at the when she arrives. If there are any questions about her GI-related issues here at [facility] or otherwise, please feel free to page me at any time [phone]. Alternatively, my cell phone #[phone].
== END 2017-01-05 15:43 | disposition short-term general hospital (02) | DRG 385 ==
LOC: SED 14:52 → MPC 19:23 → CCU 12-24 17:52 → PCC 12-24 20:26 → CCU 12-25 08:17
PROVIDERS: ADMIT Internal Medicine; ATTEND Internal Medicine
PROC: 0D788ZZ Dilation of Small Intestine, Via Natural or Artificial Opening Endoscopic (ICD-10-PCS; principal; 2016-12-24 18:00)
PROC: 30233N1 Transfusion of Nonautologous Red Blood Cells into Peripheral Vein, Percutaneous Approach (ICD-10-PCS; 2016-12-25)
PROC: 4A033R1 Measurement of Arterial Saturation, Peripheral, Percutaneous Approach (ICD-10-PCS; 2016-12-26)
PROC: 5A1955Z Respiratory Ventilation, Greater than 96 Consecutive Hours (ICD-10-PCS; 2016-12-26)
PROC: 0BH17EZ Insertion of Endotracheal Airway into Trachea, Via Natural or Artificial Opening (ICD-10-PCS; 2016-12-26)
PROC: 0B998ZX Drainage of Lingula Bronchus, Via Natural or Artificial Opening Endoscopic, Diagnostic (ICD-10-PCS; 2016-12-26)
PROC: 0B948ZX Drainage of Right Upper Lobe Bronchus, Via Natural or Artificial Opening Endoscopic, Diagnostic (ICD-10-PCS; 2016-12-26)
PROC: 30233N1 Transfusion of Nonautologous Red Blood Cells into Peripheral Vein, Percutaneous Approach (ICD-10-PCS; 2017-01-03)
DX: K50.012 Crohn's disease of small intestine with intestinal obstruction (principal); E43 Unspecified severe protein-calorie malnutrition; J96.01 Acute respiratory failure with hypoxia; I50.21 Acute systolic (congestive) heart failure; A41.9 Sepsis, unspecified organism; B59 Pneumocystosis; E42 Marasmic kwashiorkor; J69.0 Pneumonitis due to inhalation of food and vomit; E87.1 Hypo-osmolality and hyponatremia; Z68.1 Body mass index [BMI] 19.9 or less, adult; B37.0 Candidal stomatitis; R18.8 Other ascites; E87.3 Alkalosis; I51.81 Takotsubo syndrome; D62 Acute posthemorrhagic anemia; I82.722 Chronic embolism and thrombosis of deep veins of left upper extremity; K50.013 Crohn's disease of small intestine with fistula; E86.0 Dehydration; D50.9 Iron deficiency anemia, unspecified; Z93.2 Ileostomy status; F41.9 Anxiety disorder, unspecified; F32.9 Major depressive disorder, single episode, unspecified; Z79.52 Long term (current) use of systemic steroids; D69.59 Other secondary thrombocytopenia

== ENCOUNTER 2017-03-24 15:17 | Inpatient (IN) | payer MEDICARE ==
[2017-03-24] VITALS (7 sets, daily range): BP systolic 92–108; BP diastolic 53–66; PULSE 96–124; RESP 16–20; O2SAT 97–100
[~2017-03-24] VITALS: Ht 167.6 cm; Wt 49.5 kg
--- NOTE | 2017-03-24 16:03 | ED.REPORT ---
HPI-General Illness Date of Service Mar 24, 2017 ED Provider: Live Ramirez MD Patient is a 32 year old female with a hx of Crohn's disease who presents to the ED via EMS complaining of increasing midline abdominal pain onset last night. She describes her pain as sharp, burning and aching and a 7/10 in severity. Associated symptoms include dizziness, nausea, mild headache, and mild SOB. Patient also reports looser stool in her ostomy bag. She denies dysuria, vomiting, constipation, fever, chills, chest pain, extremity swelling, rashes, or any other symptoms. She is able to keep fluids down but has uncontrollable pain and she is out of her OxyContin. She has not been able to eat solids. She was given Morphine en route without relief. Patient reports that this feels similar to her previous exacerbations. She was released from on February 13 of this year. Nursing Notes Stated Complaint: WEAKNESS, LIGHT HEADED Chief Complaint: Female Abdominal Pain Nursing Notes Reviewed: Yes Allergies: Coded Allergies: Iodinated Contrast- Oral and IV Dye (Verified Allergy, Severe, Shortness of Breath,full body rash/redness, 12/18/16) Scheduled Ascorbate Calcium (Vitamin C) 500 Mg Tablet 500 MG PO DAILY Dicyclomine (Bentyl) 10 Mg Capsule 10 MG PO QID Fluoxetine (Fluoxetine) 20 Mg Capsule 20 MG PO HS Omeprazole Magnesium (Prilosec Otc) 20 Mg Tablet.dr 20 MG PO DAILY Prednisone (PredniSONE) 10 Mg Tablet 5 MG PO QAM Sodium/K+/Mag/Ca/Chlor/Acetate (TPN Electrolytes II IV Soln) 20 Ml Vial Unknown Dose IV DAILY Scheduled PRN Lorazepam (Lorazepam) 1 Mg Tablet 1 MG PO TID PRN PRN For Anxiety Oxycodone (Roxicodone) 5 Mg Tablet 15 MG PO Q4-6H PRN PRN For Pain Promethazine (Promethazine) 12.5 Mg Tablet 6.25 MG PO Q6H PRN PRN For Nausea General Time Seen by MD: 15:53 Chief Complaint Abdominal pain Hx Obtained From: Patient, Other family... Arrived By: Ambulance Sudden in Onset?: Yes Onset Occurred: Yesterday Context of Onset: Ran out of medication Symptom Duration: Since onset Quality: Same as prior, Aching, Burning, Sharp Radiation: : Does not radiate Severity: Current: Pain level 7 out of 10 Severity: Maximum: Pain level 7 out of 10 Recent Healthcare: Recent hospitalization Similar Sx Previous: Yes Past Medical History Past Medical History Notes: SONJA Valdez Multiple recent hospitalizations, most recent 12/05/16 November 06-2016 with recurrent stomal stenosis, acute exacerbation of Crohn's, suspected adrenal insufficiency and hypovolemic shock Past Medical History Severe Crohn's Disease - history of Humira and long-term glucocorticoid use Recent past and ostomy and has had recurrent problems with stomal stenosis History of recent admission with a component of suspected adrenal insufficiency secondary to long-term steroid use Severe malnutrition (patient was discharged from a hospital in November with a Dobbhoff feeding tube, but pulled it out during a severe "anxiety attack" and has thus far declined replacement) left upper extremity DVT diagnosed October 2016 secondary to PICC line - on daily fondaparinux therapy for 6 months following diagnosis in October 2016 Anxiety Heart murmur PE Episode of acute heart failure with intubation Past Surgical History Total proctocolectomy with end ileostomy Endoscopy in December 05 with ileostomy under fluoroscopy with balloon dilation of her recurrent stomal stenosis Family History Noncontributory Smoking History Never Smoker Social History Lives in [place], she is here visiting her mother Alcohol Use: Denies alcohol use Drug Use: Denies drug use Other Social History: Good social support, , Lives with children, Visiting locally Ambulatory Status Independent Review of Systems Full Review of Systems Constitutional: Denies: Chills, Fever Respiratory: Reports: Shortness of breath Cardiovascular: Denies: Chest pain GI: Reports: Abdominal pain, Diarrhea, Nausea, Denies: Constipation Female: Denies: Dysuria Musculoskeletal: Denies: Extremity swelling Skin: Denies Rash Neurologic: Reports: Dizziness, Headache Complete sys rev & neg: except as marked. Physical Exam Nursing note and vitals reviewed. Constitutional: Well-developed, well-nourished. Not diaphoretic. Head: Normocephalic and atraumatic. Mouth/Throat: Oropharynx is clear. Mucosa dry. No oropharyngeal exudate. Eyes: EOM are normal. Pupils are equal, round, and reactive to light. Neck: Supple, no tracheal deviation. Cardiovascular: Tachycardic, regular rhythm. Equal and intact distal pulses throughout. Pulmonary/Chest: Effort normal and breath sounds normal. No respiratory distress. Abdominal: Soft. No distension. Diffuse tenderness to palpation throughout with focal tenderness, primarily in the LLQ. Stool in ostomy bag has no evidence of blood. No rebound or guarding. Musculoskeletal: Range of motion grossly intact, moving all extremities. No edema or tenderness appreciated. Neurological: AOx3. Grossly nonfocal exam. Strength and sensation intact and equal to bilateral upper and lower extremities. Skin: Warm and dry, no rashes or pallor appreciated. Psychiatric: Appropriate mood and affect. Behavior appears normal. Vital Signs Vital Signs Date Time Temp Pulse Resp B/P Pulse Ox O2 Delivery O2 Flow Rate FiO2 03/24/17 21:58 97 16 92/53 98 Room Air 03/24/17 18:06 96 16 93/55 97 Room Air 03/24/17 17:06 120 16 108/65 99 Room Air 03/24/17 15:43 36.9 124 20 95/66 100 Room Air Interpretation & Diagnostics Lab Results Interpretation Result Diagram: 03/24/17 1714 03/25/17 0500 Test 03/24/17 17:14 03/24/17 21:43 White Blood Count 5.3th/mm3 (3.8-10.1) Red Blood Count 4.14mil/mm3 (3.90-5.20) Hemoglobin 10.2g/dL (12.0-15.6) Hematocrit 33.5% (35.0-46.0) Mean Corpuscular Volume 80.9fL (81-100) Mean Corpuscular Hemoglobin 24.6pg (27.0-35.0) Mean Corpuscular Hemoglobin Concent 30.4% (32.0-37.0) Red Cell Distribution Width 17.4% (12.3-15.4) Platelet Count 422bil/L (150-400) Neutrophils (%) (Auto) 61.4% (40-74) Lymphocytes (%) (Auto) 26.0% (14-46) Monocytes (%) (Auto) 11.6% (4-12) Eosinophils (%) (Auto) 0.6% (0-5) Basophils (%) (Auto) 0.2% (0-3) Erythrocyte Sedimentation Rate 59mm/hr (0-32) Lactic Acid Level 1.1mmol/L (0.4-2.0) Total Bilirubin 0.2mg/dL (0.0-1.2) Aspartate Amino Transf (AST/SGOT) 12U/L (0-50) Alanine Aminotransferase (ALT/SGPT) 7U/L (0-32) Alkaline Phosphatase 81U/L (25-150) C-Reactive Protein 3.4mg/dL (0.0-0.5) Total Protein 7.5g/dL (6.4-8.4) Albumin 3.6g/dL (3.4-5.0) Lipase 14U/L (13-60) Urine Color Yellow (YELLOW) Urine Appearance Clear (CLEAR,HAZY) Urine pH 7.0 (5.0-8.0) Urine Specific [place] 1.010 (1.003-1.035) Urine Protein Negativemg/dL (NEG,TRACE) Urine Glucose (UA) Negativemg/dL (NEGATIVE) Urine Ketones Negativemg/dL (NEGATIVE) Urine Occult Blood Negative (NEGATIVE) Urine Nitrite Negative (NEGATIVE) Urine Bilirubin Negative (NEGATIVE) Urine Urobilinogen Normalmg/dL (NORMAL) Urine Leukocyte Esterase Negative (NEGATIVE) Urine RBC 0-2/hpf (0-2) Urine WBC 0-5/hpf (0-5) Urine Epithelial Cells Moderate/hpf (NONE-MOD) Urine Crystals None seen (NONE SEEN) Urine Bacteria Few/hpf (NONE-FEW) Urine Hyaline Casts None/lpf (NONE) Urine Granular Casts None seen (NONE SEEN) Urine Waxy Casts None seen (NONE SEEN) Urine Red Blood Cell Casts None seen (NONE SEEN) Urine White Blood Cell Casts None seen (NONE SEEN) Urine Mucus None seen (None Seen) Urine Trichomonas None seen (NONE SEEN) Urine Yeast None (NONE SEEN) Urinalysis Comment None Urine Culture Reflexed Indicated CT Abd / Pelvis Interpretation IMPRESSION: 1. Status post total colectomy and right lower quadrant ileostomy. 2. Multiple dilated loops of small bowel are loops of small bowel are dilated up to 6.5 cm compatible with high-grade obstruction. 3. No free air. 4. Multiloculated cyst along the posterior margin of the fundus of the uterus stable compared to prior examination. 5. Mesenteric and retroperitoneal lymphadenopathy which could be reactive versus less likely neoplastic. 6. Findings discussed with Dr. Ramirez on 12/24/2006 at 1921 hrs. 6. Cholelithiasis. Dictated by: Keeley Bethea MD, PhD on 03/24/2017 at 19:05 Approved by: Keeley Bethea MD, PhD on 03/24/2017 at 19:22 Study type: Abdominal CT no contrast Interpretation / Wet Read by: Interpret - Radiologist, Discussed w radiologist Re-Eval/Medical Decision Med Decision/Clinical Course 32 yo F w/ complex PMHx including Crohn's s/p ileostomy w/ multiple recurrences of SBO p/w worsening abdominal pain today. Diffuse tenderness but not a surgical abdomen to my exam. Lab studies notable for elevated inflammatory markers, CT w/ high grade bowel obstruction. Discussions w/ consultants as noted below. did not feel that she was a good surgical candidate at this time. Discussed with both GI and general surgery continuous improvement analyst, who feels that a medicine admit, NG tube, and NPO status would be best course of action for now and they will consult on the patient. Discussed w/ patient at length. Given IVF , antiemetics and pain control here in the ED w/ some improvement in symptoms, though she has remained mildly tachycardic. Time of Eval: 20:07 Re-Evaluation/Progress Note: Discussed plan for transfer to . Patient understands and agrees with plan. All questions addressed at this time. Time of Eval: 21:22 Re-Evaluation/Progress Note: Discussed plan for admission. Patient understands and agrees with plan. All questions addressed at this time. Consultation #1: Referral / Consult Name: Tobias Zaidi MD Call Returned at: 19:36 Note: Discussed pt's case. Suggests higher level of care at . Consultation #2: Referral / Consult Name: Vj Brownlee MD Call Returned at: 20:18 Note: Discussed pt's case with continuous improvement analyst for Dr. Valdez. Agrees with plan fro transfer. Consultation #3: Call Returned at: 21:05 Note: Discussed pt's case with Dr. Porter at [facility]. Declines admit. Consultation #4: Referral / Consult Name: Tobias Zaidi MD Consulted With: Surgeon Call Returned at: 21:15 Note: Discussed pt's case and [facility] decline to admit. Thinks patient is appropriate for medicine and agrees to consult. Consultation #5: Referral / Consult Name: Seth Hinojosa MD Consulted With: Hospitalist Call Returned at: 21:21 Psychology Tech: Will see patient, Agrees with eval, Agrees with plan, Accepts admit Note: Discussed pt's case. Accepts admit. Counseled Regarding: Diagnosis, Lab results, Need for admission Discharge & Departure Primary Impression: SBO (small bowel obstruction) Additional Impressions: Tachycardia Nausea & vomiting Vomiting type: unspecified Vomiting Intractability: unspecified Qualified Code: R11.2 - Nausea with vomiting, unspecified Disposition: ADMITTED TO HOSPITAL Discharge Condition All VS Reviewed: Yes Condition: Stable Referrals: Elissa Arteaga DO (PCP) Humberto Couch DO Scribe Attestation Portions of this note were transcribed by Alexi Chahal. I, Dr. Ramirez personally performed the history, physical exam and medical decision-making; I reviewed and confirmed the accuracy of the information in the transcribed note. Signed by: Alexi Chahal 03/24/17, [id number] copies to: Humberto Couch William B MD Mar 24, 2017 16:03 ALEXI CHAHAL Mar 24, 2017 16:37
[2017-03-24] MEDS ORDERED: 0.9% Sodium Chloride 1,000 ML IV ONE (16:43)
[2017-03-24] MEDS: Ondansetron 2 mg/mL 2 mL Inj IVPUSH PRN ×3 (16:53→23:28)
[2017-03-24] MEDS: HYDROmorphone 0.5 mg/0.5 mL iSecure Syringe IVPUSH PRN ×4 (16:53→21:46)
[2017-03-24 17:37] LABS: BASOPHILS % (AUTO) 0.2 % (0-3); EOSINOPHILS % (AUTO) 0.6 % (0-5); MONOCYTES % (AUTO) 11.6 % (4-12); Mean Corpuscular Hemoglobin 24.6 pg (27.0-35.0); Mean Corpuscular Volume 80.9 fL (81-100); NEUTROPHILS % (AUTO) 61.4 % (40-74); Platelet Count 422 bil/L (150-400)
[2017-03-24 18:00] LABS: Magnesium 2.1 mg/dL (1.6-2.6)
[2017-03-24 18:18] LABS: ERYTHROCYTE SEDIMENTATION RATE 59 mm/hr (0-32)
--- NOTE | 2017-03-24 19:24 | DRSVH ---
PROCEDURE: CT ABDOMEN AND PELVIS WITHOUT CONTRAST ([id number]) INDICATIONS: crohn's w/ abd pain; eval for exac vs other TECHNIQUE: After the administration of oral contrast, 5 mm thick sections acquired from the diaphragms to the sy mphysis. 5 mm coronal and sagittal reformats were performed. For radiation dose reduction, the foll owing was used: automated exposure control, adjustment of mA and/or kV according to patient size. COMPARISON: [facility], CT, CT ABD PELVIS WO CON, 12/24/2016, 12:41. [facility], CT, CT ABD PELVIS WO CON, 12/18/2016, 17:29. FINDINGS: Image quality: Excellent. ABDOMEN: Lung bases: Atelectasis noted in the lung bases. Heart size is normal. Solid organs: Liver and spleen are normal in size. Gallbladder contains gallstones. Pancreas is no rmal in size. No adrenal nodules. Both kidneys are normal in size, without hydronephrosis or nephro lithiasis. 5 mm hyperdense nodule right kidney is stable compared to prior examination. Peritoneum and bowel: Patient is status post total colectomy. Right lower quadrant ileostomy noted. There are dilated loops of proximal small bowel which measure up to 6.4 cm in diameter. Definite t ransition zone is not identified but may be in the region of right lower quadrant ileostomy. Nodes and vessels: Numerous enlarged mesenteric and retroperitoneal lymph nodes are noted. Aorta an d inferior vena cava are normal in size. Miscellaneous: No ventral hernias. PELVIS: Genitourinary: Bladder wall thickness is normal. Miscellaneous: No inguinal hernias or adenopathy. Multiloculated cystic lesion noted along the poste rior margin of the uterus which is stable compared to prior examination. Bones: No suspicious bony lesions. No vertebral body compression fractures. IMPRESSION: 1. Status post total colectomy and right lower quadrant ileostomy. 2. Multiple dilated loops of small bowel are loops of small bowel are dilated up to 6.5 cm compatibl e with high-grade obstruction. 3. No free air. 4. Multiloculated cyst along the posterior margin of the fundus of the uterus stable compared to maryann or examination. 5. Mesenteric and retroperitoneal lymphadenopathy which could be reactive versus less likely neoplas tic. 6. Findings discussed with Dr. Ramirez on 12/24/2006 at 1921 hrs. 6. Cholelithiasis. Dictated by: Keeley Bethea MD, PhD on 03/24/2017 at 19:05 Approved by: Keeley Bethea MD, PhD on 03/24/2017 at 19:22
[2017-03-24] MEDS ORDERED: Polyethylene Glycol (PEG) 17 Gm Powder PO PRN (21:25)
[2017-03-24] MEDS ORDERED: Alum-Mag Hydrox-Simeth 30 mL Suspension PO PRN (21:25)
[2017-03-24] MEDS: 0.9% Sodium Chloride 1,000 ML IV SCH (21:29)
[2017-03-24 21:51] LABS: APPEARANCE,URINE CLEAR (CLEAR,HAZY); COLOR,URINE YELLOW (YELLOW)
[2017-03-24 21:52] LABS: OCCULT BLOOD,URINE NEGATIVE (NEGATIVE); UROBILINOGEN,URINE NORMAL (NORMAL)
[2017-03-24] MEDS ORDERED: SODI20VI2 IV (22:16)
[2017-03-24] MEDS ORDERED: OMEP20TA24 PO (22:16)
[2017-03-24] MEDS ORDERED: FLUO20CA25 PO (22:16)
--- NOTE | 2017-03-24 22:38 | CONS ---
[address] [address] CONSULTATION REPORT PATIENT: MAE FELIZ : 1985 MR#: [id number] ADMIT: 03/24/2017 JOB ID: [id number] DATE OF SERVICE: 03/24/2017 CHIEF COMPLAINT: Abdominal pain, nausea, vomiting. Possible small bowel obstruction. HISTORY OF PRESENT ILLNESS: The patient is a 32-year-old female with a complicated medical history including Crohn disease since age 18. She underwent a laparoscopic total proctocolectomy with end ileostomy at [facility] in [place] in 2013. The patient subsequently moved to [place] in late 2015 and has been seeing Dr. Valdez for followup. The patient was most recently hospitalized here in December 2016 and the patient has just finished a recent hospitalization at the [facility] from February to March. While she was at the [facility] she developed 4 new enterocutaneous fistulas about two to three weeks ago. The patient has a history of entero-enteral fistula and also a history of ileal strictures status post balloon dilatation of her stomal stenosis. While she was down at [facility], she saw a surgeon by the name of Dr. Azevedo. [facility] to onset of abdominal pain since yesterday afternoon around 4 p.m. She has had nausea and vomiting x3. She has noticed more frequent and more liquidy stool out of her ostomy and out of her enterocutaneous fistulas. She is having more abdominal pain than usual, and she is feeling weak and shaky. Workup in the emergency department tonight included laboratory examinations that show a white blood count of 5.3, hematocrit 33.5, platelet count 422, and a CT scan finding showing multiple dilated loops of small bowel compatible with high-grade obstruction. There is also finding of cholelithiasis. Efforts to transfer her to the [facility] was unsuccessful. The patient has been previously seen by my partners, Dr. Peres and Dr. Alvarez, who all felt that she would benefit from comprehensive care at a tertiary care center. PAST MEDICAL HISTORY: , total proctocolectomy with ileostomy in 2013, left subclavian DVT from a PICC line, history of PE, adrenal insufficiency, anxiety, heart failure in December 2016, history of small-bowel obstructions. MEDICATIONS: Currently include Bentyl, prednisone, oxycodone and lorazepam. ALLERGIES: To oral and IV IODINE CONTRAST. SOCIAL HISTORY: Patient now lives in [place] and lives with her mother. She is a nonsmoker. She does not drink. She is single. FAMILY HISTORY: Positive for colon cancer in her grandfather. REVIEW OF SYSTEMS: Positive for the abdominal pain, nausea, vomiting, and increased liquid output out of her ostomy and enterocutaneous fistula. She is passing gas out of the enterocutaneous fistula. PHYSICAL EXAMINATION: The patient is a thin female, currently on the emergency department [facility], in no acute distress. Her BMI is 16.7, her temperature is 36.9, blood pressure 92/53, pulse is 97, respirations 16. Head is normocephalic, atraumatic. There is no scleral icterus. Neck is supple. There is no adenopathy. Heart is regular rate. Lungs are clear. Abdomen is actually nontender on exam, it is rather soft all around the periphery of her abdomen. In the mid abdomen, there is a large ostomy bag which covers up her end ileostomy plus four enterocutaneous fistulas. There are definitely no peritoneal signs. Extremities show no clubbing and no cyanosis. Neurologically, she is awake and alert and follows commands and answers questions and relates her medical history. LABORATORY EXAMINATION: [facility] shows a white blood count of 5.3, hematocrit 33.5, platelet count is 422. Her sed rate is 59. Sodium is 140, potassium 4.6, BUN is 21, creatinine 0.46, total bilirubin is 0.2 and lipase is 14. The CT scan from [facility] suggests cholelithiasis, status post total colectomy and right lower quadrant ileostomy, multiple dilated loops of small bowel compatible with high-grade obstruction. ASSESSMENT: This is a 32-year-old female with a complicated medical history resulting from Crohn's who has a 1-day history of increasing abdominal pain with nausea, vomiting and more frequent liquid stools out of her ostomy and multiple enterocutaneous fistulas. The patient has history of entero-enteral fistula and now has 4 enterocutaneous fistuli over the past 2-3 weeks. The patient has seen a surgeon down at [facility] already, and she is known to their system. The patient should get admitted to the hospitalist service [facility] and receive IV fluid hydration. I believe a gastroenterology consult with Dr. Valdez will be very helpful. If she were to require surgical intervention, she should be transferred to the [facility] or other tertiary care center. The patient understands and agrees with the plan. AYANA
[2017-03-24] MEDS ORDERED: HYDROmorphone 1 mg/mL Inj IVPUSH PRN (22:45)
[2017-03-24] MEDS ORDERED: HYDROmorphone 0.5 mg/0.5 mL iSecure Syringe IVPUSH PRN (22:58)
--- NOTE | 2017-03-24 23:31 | PCM.HPMED ---
Subjective Date of Service Mar 24, 2017 Primary Provider: Admitting Physician: Seth Hinojosa MD Primary Care Physician: Elissa Arteaga DO Attending Physician: Seth Hinojosa MD Admit Status: From the Emergency Department, Full Admit, Remote Telemetry Chief Complaint: Acute abdominal pain History of Present Illness: Terra Beauchamp is a 32 year old female with Crohn's disease s/p total proctocolectomy with end ileostomy performed at [facility] in [place], [place]. She is on chronic glucocorticoids with Humira therapy, multiple prior obstructions/near obstructions near ostomy, recurrent flares, and recent left UE DVT secondary to PICC placement for TPN, who presented to [facility] emergency department via EMS complaining of increasing midline abdominal pain Patient reported the pain started late last night, described as sharp, burning and aching in character and a 7/10 in severity without any radiation. Associated symptoms include dizziness, nausea and one episode of non bloody vomiting, mild headache and decreased appetite (unable to keep fluids down due to sever pain and reported she ran out of her OxyContin). Patient also reports looser stool in her ostomy bag. She denies dysuria, fever or chills. She is currently on TPN and clear liquid diet. She was recently at hospital around February due to a Crohn flare but no surgery was reported by patient. Case discussed with Dr Ramirez, he spoke to Dr Zaidi who recommended transfer to but no indication for surgery and the patient will stay for further treatment. Review of Systems: Pertinent positives as noted in HPI. All other systems were reviewed and are negative Allergies Coded Allergies: Iodinated Contrast- Oral and IV Dye (Verified Allergy, Severe, Shortness of Breath,full body rash/redness, 12/18/16) Home Medications From last discharge Summary, not yet confirmed Adalimumab (Humira) 40 Mg/0.8 Ml Pen.ij.kit 40 MG SQ [id number] (Reported) Ascorbate Calcium (Vitamin C) 500 Mg Tablet 500 MG PO DAILY (Reported) Dicyclomine (Bentyl) 10 Mg Capsule 10 MG PO QID Prescribed by: LASHA PRATHER DO Fondaparinux Sodium (Arixtra) 5 Mg/0.4 Ml Syringe 5 MG SUBQ HS (Reported) Multivit with Calcium,Iron,Min (Therapeutic M) 1 Each Tablet 1 EACH PO DAILY ( Reported) Oxycodone (Roxicodone) 5 Mg Tablet 15 MG PO BID (Reported) Prednisone (PredniSONE) 10 Mg Tablet 20 MG PO QAM (Reported) As needed Lorazepam (Lorazepam) 1 Mg Tablet 1 MG PO TID PRN PRN For Anxiety (Reported) Promethazine (Promethazine) 12.5 Mg Tablet 6.25 MG PO Q6H PRN PRN For Nausea ( Reported) PMH Abdominal proctocolectomy with right upper quadrant ileostomy at [facility] October 2013 Recurrent stoma stenosis Severe protein calorie malnutrition DVT secondary to IV placement Crohn's disease 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 section Low grade TETO status post colposcopy Surgical History see above Family History She has no family history of Crohn's or UC Mother has celiac disease Grandfather was diagnosed with colon cancer at age 62 Social History Hx Alcohol Use: No Hx Substance Use: No Hx Tobacco Use: No Smoking Status: Never Smoker Living Arrangement: with Family (with Mother) Exam Vital Signs Vital Sign - Last Date Time Temp Pulse Resp B/P Pulse Ox O2 Delivery O2 Flow Rate FiO2 03/24/17 22:30 36.8 106 16 104/65 98 Room Air Exam General: Alert, Oriented X3, Cooperative, mild acute Distress due to abdominal pain Eyes: PERRLA, Scleral Anicteric Mouth: Mouth Normal, Mucous Membranes Moist/[place] Neck: Supple, no Thyromegaly, trachea central. Chest & Lungs: Clear to auscultation & percussion, No adventitious breath sounds, no crackles, no wheeze Cardiovascular: Normal S1, Normal S2, No Murmurs/Rubs/Gallops, Regular Rate/ Rhythm (No JVD, no peripheral edema) Pulses: Radial (present and equal), Dorsalis Pedi (present and equal) Abdomen: Soft, diffuse tenderness, + distended, hypoactive bowel tones. Musculoskeletal: Unremarkable. Normal range of motion, no swollen or erythematous joints Extremities: No edema, no cyanosis, no clubbing. Skin: No rashes. Warm and dry, no erythematous areas Neurological: Grossly neurologically intact, Normal Speech, Sensation Intact Lymphatic: Lymph nodes Cervical and Axillary not palpable Lab and Diagnostics Labs Laboratory Tests Test 03/24/17 17:14 03/24/17 21:43 White Blood Count 5.3th/mm3 (3.8-10.1) Red Blood Count 4.14mil/mm3 (3.90-5.20) Hemoglobin 10.2g/dL (12.0-15.6) Hematocrit 33.5% (35.0-46.0) Mean Corpuscular Volume 80.9fL (81-100) Mean Corpuscular Hemoglobin 24.6pg (27.0-35.0) Mean Corpuscular Hemoglobin Concent 30.4% (32.0-37.0) Red Cell Distribution Width 17.4% (12.3-15.4) Platelet Count 422bil/L (150-400) Neutrophils (%) (Auto) 61.4% (40-74) Lymphocytes (%) (Auto) 26.0% (14-46) Monocytes (%) (Auto) 11.6% (4-12) Eosinophils (%) (Auto) 0.6% (0-5) Basophils (%) (Auto) 0.2% (0-3) Erythrocyte Sedimentation Rate 59mm/hr (0-32) Sodium Level 140mEq/L (134-144) Potassium Level 4.6mEq/L (3.5-5.2) Chloride Level 103mEq/L (97-108) Carbon Dioxide Level 24mmol/L (18-29) Blood Urea Nitrogen 21mg/dL (6-20) Creatinine 0.46mg/dL (0.57-1.00) Estimat Glomerular Filtration Rate 225mL/min (>59) Glucose Level 104mg/dL (60-99) Lactic Acid Level 1.1mmol/L (0.4-2.0) Calcium Level 9.4mg/dL (8.5-10.1) Magnesium Level 2.1mg/dL (1.6-2.6) Total Bilirubin 0.2mg/dL (0.0-1.2) Aspartate Amino Transf (AST/SGOT) 12U/L (0-50) Alanine Aminotransferase (ALT/SGPT) 7U/L (0-32) Alkaline Phosphatase 81U/L (25-150) C-Reactive Protein 3.4mg/dL (0.0-0.5) Total Protein 7.5g/dL (6.4-8.4) Albumin 3.6g/dL (3.4-5.0) Lipase 14U/L (13-60) Urine Color Yellow (YELLOW) Urine Appearance Clear (CLEAR,HAZY) Urine pH 7.0 (5.0-8.0) Urine Specific [place] 1.010 (1.003-1.035) Urine Protein Negativemg/dL (NEG,TRACE) Urine Glucose (UA) Negativemg/dL (NEGATIVE) Urine Ketones Negativemg/dL (NEGATIVE) Urine Occult Blood Negative (NEGATIVE) Urine Nitrite Negative (NEGATIVE) Urine Bilirubin Negative (NEGATIVE) Urine Urobilinogen Normalmg/dL (NORMAL) Urine Leukocyte Esterase Negative (NEGATIVE) Urine RBC 0-2/hpf (0-2) Urine WBC 0-5/hpf (0-5) Urine Epithelial Cells Moderate/hpf (NONE-MOD) Urine Crystals None seen (NONE SEEN) Urine Bacteria Few/hpf (NONE-FEW) Urine Hyaline Casts None/lpf (NONE) Urine Granular Casts None seen (NONE SEEN) Urine Waxy Casts None seen (NONE SEEN) Urine Red Blood Cell Casts None seen (NONE SEEN) Urine White Blood Cell Casts None seen (NONE SEEN) Urine Mucus None seen (None Seen) Urine Trichomonas None seen (NONE SEEN) Urine Yeast None (NONE SEEN) Urinalysis Comment None Urine Culture Reflexed Indicated Microbiology 03/24/17 Urine Culture, Received Pending Result Diagram: 03/24/17 1714 03/24/17 1714 X-Rays, CTs and MRIs CT ABDOMEN AND PELVIS WITHOUT CONTRAST 03/24 IMPRESSION: 1. Status post total colectomy and right lower quadrant ileostomy. 2. Multiple dilated loops of small bowel are loops of small bowel are dilated up to 6.5 cm compatible with high-grade obstruction. 3. No free air. 4. Multiloculated cyst along the posterior margin of the fundus of the uterus stable compared to prior examination. 5. Mesenteric and retroperitoneal lymphadenopathy which could be reactive versus less likely neoplastic. 6. Cholelithiasis. Dictated by: Keeley Bethea MD, PhD on 03/24/2017 at 19:05 Approved by: Keeley Bethea MD, PhD on 03/24/2017 at 19:22 Assessment & Plan Terra Beauchamp is a 32 year old female with Crohn's disease s/p total proctocolectomy with end ileostomy performed at [facility] in [place], [place]. She is on chronic glucocorticoids with Humira therapy, multiple prior obstructions/near obstructions near ostomy, recurrent flares, and recent left UE DVT secondary to PICC placement for TPN, who presented to [facility] emergency department via EMS complaining of increasing midline abdominal pain 1. Acute Abdominal pain secondary to high grade small bowel obstruction. Present on admission Recurrent issue with this patient likely due to adhesive disease from prior abdominal surgery - nothing by mouth - Iv fluids resuscitation - continue antiemetic medications, consider NG tube placement if symptoms worsens overnight - Dr Zaidi consulted, will follow his recommendations - if patient requires a surgical intervention patient will be transferred to or other tertiary facility given complexity 2 Crohn's disease s/p total proctocolectomy with RLQ ileostomy, acute, present on admission Patient has a complex course of disease with poor response to treatment - will continue steroids, consider IV steroids depending on GI recommendations - will consult Dr Valdez tomorrow, he was aware patient was in the ED 3 Severe protein/calorie malnutrition. Chronic improving with prior BMI 15 now 17.5 - Patient not a PEG tube candidate. She has previously been noncompliant with Dobhoff due to discomfort - Apprentice Electrician consultation - continue TPN 4 Hypochromic microcytic anemia, likely iron deficiency, chronic Due to poor oral intake and poor nutritional status - monitor for indication for blood transfusion, no signs of bleeding - Acetaminophen as needed for mild pain/fever/headache - Bowel regimen as needed - Antiemetic as needed Patient admitted under inpatient status with expected length of stay > 2 midnights for severity of present symptoms, complexities of treatment plan and risk for adverse event . Resuscitation Status: CPR: Attempt Resuscitation Seth Hinojosa MD Mar 24, 2017 23:10 -Consider iron supplementation as outpatient - Acetaminophen as needed for mild pain/fever/headache - Bowel regimen as needed - Antiemetic as needed Patient admitted under inpatient status with expected length of stay > 2 midnights for severity of present symptoms, complexities of treatment plan and risk for adverse event . Resuscitation Status: CPR: Attempt Resuscitation Seth Hinojosa MD Mar 24, 2017 23:10
[2017-03-24] MEDS: LORazepam 1 mg Tablet PO PRN (23:45)
[2017-03-24] MEDS: Heparin 5,000 Unit/mL Inj SUBQ SCH (23:45)
[2017-03-25] MEDS: HYDROmorphone 1 mg/mL Inj IVPUSH PRN ×6 (03:13→21:09)
[2017-03-25] MEDS: 0.9% Sodium Chloride 1,000 ML IV SCH ×2 (03:44→14:49)
[2017-03-25 04:29] VITALS: BP 97/61; PULSE 89; RESP 16; O2SAT 96
--- NOTE | 2017-03-25 07:08 | NUR ---
Admit Report given at 221 by Emily Pascual RN. Patient arrived onto unit at approx. 2230 on hospital bed and transferred of her own will to bed in room. VSS, slighty tachy 106 (down from 120s-140s in ED), colostomy drained, pt made comfortable and oriented to room, call light, etc. Pt experiencing pain 7/10 shortly after arrival. Physician placed order for 2mg dilaudid which helped pain down to 4/10.
--- NOTE | 2017-03-25 07:10 | NUR ---
Nausea/Pain Pt experiencing nausea at 2315 and vomitus, relieved by 8mg Zofran. Pt able to rest comfortably after that. Pt would like to avoid NG tube. Will continue to monitor, call light within reach. Pt pain is constant and between 5-8/10. q4 dilaudid is not providing enough coverage, would like to discuss at morning rounds.
--- NOTE | 2017-03-25 07:11 | NUR ---
Ostomy Ostomy emptied 350ml by MANAGER FACILITY at admit. Approx 0300 patient awoke with leakage from ostomy with over 650ml. Changed bedding/clothing and patient resealed with supplies. Her mother will be bringing in her personal supplies today. With the overload of drainage from ostomy site, LANEY Vega and MANAGER FACILITY attached it to a Fecal Mgmt System to allow for sleep without worry. Still some leakage issues, which will be resolved with supplies from home.
[2017-03-25] MEDS ORDERED: KCl 40 mEq/D5W 500 mL 40 MEQ in IV Premix 1 EACH IV ONE (07:35)
[2017-03-25 08:00] VITALS: BP 104/60; PULSE 94; RESP 16; O2SAT 97
[2017-03-25] MEDS: Heparin 5,000 Unit/mL Inj SUBQ SCH ×2 (09:15→17:36)
[2017-03-25 10:04] VITALS: PULSE 80
[2017-03-25 10:25] LABS: Magnesium 1.6 mg/dL (1.6-2.6); Phosphorus 5.2 mg/dL (2.5-4.9)
--- NOTE | 2017-03-25 10:49 | PCM.PNMED ---
Subjective Date of Service Mar 25, 2017 Subjective Terra Beauchamp is a 32 year old female with Crohn's disease s/p total proctocolectomy with end ileostomy performed at [facility] in [place], [place]. She is on chronic glucocorticoids with Humira therapy, multiple prior obstructions/near obstructions near ostomy, recurrent flares, and recent left UE DVT secondary to PICC placement for TPN, who presented to [facility] emergency department via EMS complaining of increasing midline abdominal pain. She was recently at [facility] around February due to a Crohn flare but no surgery was reported by patient. Duing admission this case was discussed with Dr Ramirez and Dr Zaidi who recommended transfer to but did not accept the patient as there were no indication for surgery. The desision was made to admit the patient for hydration, symptomatic treatment and monitoring. Patient has high grade SBO. Exam Vital Signs Vital Sign - Last Date Time Temp Pulse Resp B/P Pulse Ox O2 Delivery O2 Flow Rate FiO2 03/25/17 10:04 80 03/25/17 08:00 36.7 16 104/60 97 Room Air Intake and Output 03/24/17 03/24/17 03/25/17 Cumulative From/Thru 14:59 22:59 06:59 03/24/17 15:43 - 03/25/17 04:27 Intake Total 1000 ml 0 ml 1000 ml Output Total 1050 ml 1050 ml Balance 1000 ml -1050 ml -50 ml Intake Oral 0 ml 0 ml IV Total 1000 ml 1000 ml Output Urine Total 0 ml 0 ml Stool Total 1050 ml 1050 ml Exam PHYSICAL EXAM: GENERAL: Alert, not in distress, cooperative, thin HEAD: atraumatic, normocephalic, no bruises. EYES: LARRY, EOMI, anicteric, able to fully open and close eyelids SKIN: Skin color normal, turgor normal/decreased. No visible rashes or lesions. EAR, NOSE, MOUTH, THROAT: Lips, oral mucosa, tongue gums, oropharynx are moist , pink, no lesions. Ears normal appearance, no lesions. NECK: no jugulovenous distention, no carotid bruits, carotid pulse normal contour, No carotid bruit, supple, no enlarged lymph nodes appreciated; ROM normal. RESPIRATORY: Lungs clear to auscultation. Good diaphragmatic excursion. Normal percussion sound. CARDIAC: normal S1 and S2; no rubs, murmurs, or gallops; regular rate and rhythm ABDOMEN: Abdomen soft, tender, ileostoma present, several chronic enterocutaneouse fistulas present . BS decreased. MUSCULOSKELETAL: ROM full, muscles are not tender EXTREMITIES: no pitting edema in LE, no deformities, clubbing or skin discoloration. NEURO: Alert, oriented X 3, Sensation grossly intact., Cranial nerves II-XII intact, Grossly normal motor function. PULSES: 2+ radial, 2+ posterial tibial, 2+ dorsalis pedis, 2+ carotid REVIEW OF SYSTEMS: GENERAL: + malaise, no fevers., SEE HPI HEENT: Negative for frequent or significant headaches, No changes in hearing or vision, no nose bleeds or other nasal problems NECK: Negative for lumps, goiter, pain and significant neck swelling All other reviewed and negative other than HPI. IVs and Medications Medications Reviewed: Medications were reviewed in detail Lab and Diagnostics Result Diagram: 03/24/17 1714 03/25/17 0500 X-Rays, CTs and MRIs CT ABDOMEN AND PELVIS WITHOUT CONTRAST 03/24 IMPRESSION: 1. Status post total colectomy and right lower quadrant ileostomy. 2. Multiple dilated loops of small bowel are loops of small bowel are dilated up to 6.5 cm compatible with high-grade obstruction. 3. No free air. 4. Multiloculated cyst along the posterior margin of the fundus of the uterus stable compared to prior examination. 5. Mesenteric and retroperitoneal lymphadenopathy which could be reactive versus less likely neoplastic. 6. Cholelithiasis. Dictated by: Keeley Bethea MD, PhD on 03/24/2017 at 19:05 Approved by: Keeley Bethea MD, PhD on 03/24/2017 at 19:22 Assessment & Plan Terra Beauchamp is a 32 year old female with Crohn's disease s/p total proctocolectomy with end ileostomy performed at [facility] in [place], [place]. She is on chronic glucocorticoids with Humira therapy, multiple prior obstructions/near obstructions near ostomy, recurrent flares, and recent left UE DVT secondary to PICC placement for TPN, who presented to [facility] emergency department via EMS complaining of increasing midline abdominal pain. Patient was diagnosed with high-grade small bowel obstruction. Gastroenterology and surgery on the case. 1. Acute Abdominal pain secondary to high grade small bowel obstruction - stable, not under control Plan - nothing by mouth, Iv fluids resuscitation - continue antiemetic medications, consider NG tube placement if symptoms worsens - c/w IV Dilaudid for pain - Dr Zaidi consulted, will follow his recommendations - if patient requires a surgical intervention patient will be transferred to or other tertiary facility given complexity 2 Crohn's disease s/p total proctocolectomy with RLQ ileostomy - stable, not under control. Patient has a complex course of disease with poor response to treatment - GI following Plan - c/w current meds 3 Severe protein/calorie malnutrition - improving with prior BMI 15 now 17.5 - Patient not a PEG tube candidate. She has previously been noncompliant with Dobhoff due to discomfort - Field Installer consultation - continue TPN 4 Hypochromic microcytic anemia, likely iron deficiency - monitor for indication for blood transfusion, no signs of bleeding - Acetaminophen as needed for mild pain/fever/headache - Bowel regimen as needed - Antiemetic as needed 5. Hypokalemia - will replace - monitor Plan of care discussed with admitting hospitalist; Labs, radiology tests reviewed. Plan of care, medication side effects, home medication, diagnostic procedures and available alternatives were discussed and reviewed with patient. All questions answered. Patient verbalized understanding, approved and agreed to plan of care. Pain Evaluation: Adequate Pain Control VTE Prophylaxis: Sub-Q Heparin (Unfractionated) Resuscitation Status: CPR: Attempt Resuscitation Karthik Rodriguez MD Mar 25, 2017 10:49
--- NOTE | 2017-03-25 11:02 | PCM.CONPHA ---
Subjective Acute abdominal pain Reason for Pharmacy Consult: TPN Management Objective Vital Signs Date Time Temp Pulse Resp B/P Pulse Ox O2 Delivery O2 Flow Rate FiO2 03/25/17 10:04 80 03/25/17 08:00 36.7 94 16 104/60 97 Room Air 03/25/17 04:29 36.6 89 16 97/61 96 Room Air 03/24/17 23:12 104 03/24/17 22:30 36.8 106 16 104/65 98 Room Air 03/24/17 22:20 36.4 99 16 92/53 98 Room Air 03/24/17 21:58 97 16 92/53 98 Room Air 03/24/17 18:06 96 16 93/55 97 Room Air 03/24/17 17:06 120 16 108/65 99 Room Air 03/24/17 15:43 36.9 124 20 95/66 100 Room Air Intake and Output 03/23/17 03/24/17 03/25/17 00:00 00:00 00:00 Intake Total 1000 ml Balance 1000 ml Weight (Kilograms): 49.200 Height (Feet): 5 Height (Inches): 6.00 Test 03/24/17 17:14 03/24/17 21:43 03/25/17 05:00 White Blood Count 5.3th/mm3 (3.8-10.1) Red Blood Count 4.14mil/mm3 (3.90-5.20) Hemoglobin 10.2g/dL (12.0-15.6) Hematocrit 33.5% (35.0-46.0) Mean Corpuscular Volume 80.9fL (81-100) Mean Corpuscular Hemoglobin 24.6pg (27.0-35.0) Mean Corpuscular Hemoglobin Concent 30.4% (32.0-37.0) Red Cell Distribution Width 17.4% (12.3-15.4) Platelet Count 422bil/L (150-400) Neutrophils (%) (Auto) 61.4% (40-74) Lymphocytes (%) (Auto) 26.0% (14-46) Monocytes (%) (Auto) 11.6% (4-12) Eosinophils (%) (Auto) 0.6% (0-5) Basophils (%) (Auto) 0.2% (0-3) Erythrocyte Sedimentation Rate 59mm/hr (0-32) Lactic Acid Level 1.1mmol/L (0.4-2.0) Total Bilirubin 0.2mg/dL (0.0-1.2) Aspartate Amino Transf (AST/SGOT) 12U/L (0-50) Alanine Aminotransferase (ALT/SGPT) 7U/L (0-32) Alkaline Phosphatase 81U/L (25-150) C-Reactive Protein 3.4mg/dL (0.0-0.5) Total Protein 7.5g/dL (6.4-8.4) Albumin 3.6g/dL (3.4-5.0) Lipase 14U/L (13-60) Urine Color Yellow (YELLOW) Urine Appearance Clear (CLEAR,HAZY) Urine pH 7.0 (5.0-8.0) Urine Specific [place] 1.010 (1.003-1.035) Urine Protein Negativemg/dL (NEG,TRACE) Urine Glucose (UA) Negativemg/dL (NEGATIVE) Urine Ketones Negativemg/dL (NEGATIVE) Urine Occult Blood Negative (NEGATIVE) Urine Nitrite Negative (NEGATIVE) Urine Bilirubin Negative (NEGATIVE) Urine Urobilinogen Normalmg/dL (NORMAL) Urine Leukocyte Esterase Negative (NEGATIVE) Urine RBC 0-2/hpf (0-2) Urine WBC 0-5/hpf (0-5) Urine Epithelial Cells Moderate/hpf (NONE-MOD) Urine Crystals None seen (NONE SEEN) Urine Bacteria Few/hpf (NONE-FEW) Urine Hyaline Casts None/lpf (NONE) Urine Granular Casts None seen (NONE SEEN) Urine Waxy Casts None seen (NONE SEEN) Urine Red Blood Cell Casts None seen (NONE SEEN) Urine White Blood Cell Casts None seen (NONE SEEN) Urine Mucus None seen (None Seen) Urine Trichomonas None seen (NONE SEEN) Urine Yeast None (NONE SEEN) Urinalysis Comment None Urine Culture Reflexed Indicated Sodium Level 143mEq/L (134-144) Potassium Level 3.4mEq/L (3.5-5.2) Chloride Level 111mEq/L (97-108) Carbon Dioxide Level 20mmol/L (18-29) Blood Urea Nitrogen 19mg/dL (6-20) Creatinine 0.41mg/dL (0.57-1.00) Estimat Glomerular Filtration Rate 258mL/min (>59) Glucose Level 75mg/dL (60-99) Calcium Level 7.3mg/dL (8.5-10.1) Phosphorus Level 5.2mg/dL (2.5-4.9) Magnesium Level 1.6mg/dL (1.6-2.6) Assessment/Plan Assessment/Plan TPN per pharmacy - PT receives TPN through [facility] and already has picc line placement - TPN order from [facility] was obtained from nutrition and macros from the order were initiated by dietary - Total volume and additives were initiated at the same dose from the order - of note that pts receives 2L per day - Pt received a K rider this morning due to low lab value PARENTERAL NUTRITION ORDERS # 1 25-Mar-17 Standard Hang Time: 2100 Substrates Total kcal: 1607 AMINO ACIDS 85 g DEXTROSE 255 g Total Volume (mL): 2000 LIPIDS 40 g Sterile Water for Injection QS mL To Infuse Over (hrs): 24 Total Volume 2000 mL At at a rate of (mL/hr): 83 Additives Sodium Chloride 40 mEq "typical" daily requirements Sodium Acetate 80 mEq Sodium 50-120mEq Potassium Chloride 20 mEq Potassium 60-120mEq Potassium Phosphate mEq Phosphate 20-40mEq Calcium Gluconate 9 mEq Magnesium 8-32mEq Magnesium Sulfate 16 mEq Calcium 9-22mEq Acetate* 80-120mEq Chloride* 80-120mEq Regular Insulin units *Depending on acid-base status Famotidine mg Multivitamins 1 std dose Insulin Regimen Trace Elements 1 std dose none Thiamine mg Regular Low Intensity Subcut Folic Acid 1 mg Regular Medium Intensity Subcut Ascorbic Acid mg Regular High Intensity Subcut Regular Insulin Infusion Other: Special Instructions: To be infused via central line only. For delay or inturruption of TPN contact the pharmacist for alternative replacement solution. Signature Date: MAE FELIZ [address] [facility] Pharmacy will continue to follow, thank you Grecia Romero PharmD Mar 25, 2017 11:02
--- NOTE | 2017-03-25 11:10 | PCM.PNSURG ---
Subjective Date of Service: Mar 25, 2017 Visit Information: Reason for Visit Acute Sbo Surgery/Surgery Date Post-Op Day # Date of Admission: Mar 24, 2017 at 22:02 Hospital Day #2 Subjective: Denies nausea or vomiting, has not been nauseated since yesterday evening. Requesting an oral diet. Chronic/acute pain well controlled with intermittent IV Dilaudid. Passing stool via ostomy. Ambulatory in the hallway without assistance. Postop General: Other (as above) Gastrointestinal: Good Appetite, No N/V, Passing Stool (states passing stool via ostomy) Pain Management: IV Push Postop Activity: Ambulating Independently Objective Vital Sign- Last 8 Hours Date Time Temp Pulse Resp B/P Pulse Ox O2 Delivery O2 Flow Rate FiO2 03/25/17 10:04 80 03/25/17 08:00 36.7 94 16 104/60 97 Room Air 03/25/17 04:29 36.6 89 16 97/61 96 Room Air Intake and Output- Last 8 Hour 03/25/17 Cumulative From/Thru 07:00 03/24/17 15:43 - 03/25/17 04:27 Intake Total 0 ml 1000 ml Output Total 1050 ml 1050 ml Balance -1050 ml -50 ml Intake Oral 0 ml 0 ml IV Total 1000 ml Output Urine Total 0 ml 0 ml Stool Total 1050 ml 1050 ml General: Alert, Cooperative, No Acute Distress Lungs: Clear to Auscultation Heart: Regular Rate/Rhythm, No Murmurs/Rubs/Gallops Abdomen: Soft, Appropriately tender, Non-distended, Other (ostomy and abdominal wall fistulas are under stool collection device with stool in the device. It is unclear whether output is from the fistulas for the ostomy.) Extremities: Thigh&Calf Soft/Nontender Neuro: Normal Speech Catheters: None Result Diagram: 03/24/17 1714 03/25/17 0500 Assessment & Plan Impression Primary diagnoses: 1. Small bowel obstruction. HD #2 with apparent resolution of acute presenting symptoms. 2. Crohn's disease. Currently with abdominal wall enterocutaneous fistulas. 3. Recurrent stoma stenosis 4. Severe protein calorie malnutrition 5. Hypochromic microcytic anemia, likely iron deficiency, chronic Other chronic conditions: 1. History of DVT secondary to IV placement 2. History of Perirectal fistula after remicade w/ bacteremia resolved w/ bowel rest x 1 month/TPN 3. Anxiety 4. History of Small bowel obstructions 5. Coagulation disorder 6. Ileal pancolitis, stricture in rectum 7. Tympanostomy, T and A, C. section 8. Low grade TETO status post colposcopy Problems: Plan The patient is no longer nauseated or vomiting and her abdomen is nondistended. Suggest reinitiation of oral diet. Pain Management: Intermittent IV Dilaudid VTE Prophylaxis: Sub-Q Heparin (Unfractionated) Resuscitation Status: CPR: Attempt Resuscitation Diego Alvarado PA-C Mar 25, 2017 11:10 Problems: VTE Prophylaxis: Sub-Q Heparin (Unfractionated) Resuscitation Status: CPR: Attempt Resuscitation Diego Alvarado PA-C Mar 25, 2017 11:10
--- NOTE | 2017-03-25 11:12 | NUR ---
OstomyNPO Pt ostomy leaking at change of shift. Changed chucks and towel. CHILDREN'S SERVICE WORKER changed bedding and pajama pants. Care continues.
--- NOTE | 2017-03-25 11:21 | NUR ---
NUTRITION ASSESSMENT: ASSESS: Pt is a 32yo F admitted for SBO. Pt is on chronic TPN at home due to inability to tolerate adequate PO intake to maintain her wt. She reported that she typically eats soft, bland foods at home like jello, pudding, mashed potatoes, macaroni and cheese etc. Pt receives her TPN through [facility]. Home TPN formula was faxed over and will continue with home formula. Pharmacy is aware. Pt is currently NPO due to SBO. 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 K 3.4, Cl 111, Production Editor .41, Ca 7.3, Alb 3.6 MEDS: Reviewed. Zofran GI: ostomy in place SKIN: no major issues, visible muscle/fat loss in arms, legs and face CURRENT WTS: 49.2kg, BMI 17.5kg/m2, IBW: 59kg DIET: NPO EST. NEEDS: wt Kcals: 1475-1725kcal/day (30-35kcal/kg) Pro: 70-90g/day (1.2-1.5g/kg IBW) Fluids: ~1500ml/day NUTRITION DIAGNOSIS: 1.) Severe pro/kcal malnutrition related to altered GI function/chronic disease as evidence by BMI of 17.5kg/m2, inability to tolerated adequate PO to maintain a healthy wt, visible severe muscle/fat loss and needs for TPN to receive adequate nutrition. 2.) Inadequate oral intake related to decreased ability to consume sufficient energy as evidenced by current NPO status NUTRITION INTERVENTION: 1.) Recommend resume home TPN formula of 255g Dex, 85g AA and 40g lipids to provide 1607kcal and 85g pro (100% estimate needs). Pharmacy is aware 2.) Recommend advance diet when medically appropriate. MONITOR / EVAL: NPO, TPN start/kaylen, GI, labs, wt, POC, nutrition status. Will continue to monitor per high nutrition risk guidelines Addendum: 03/26/17 at [address] TPN kaylen well. Will continue current TPN today. Pharmacy aware. Will continue to monitor per high nutrition risk guidelines
[2017-03-25] MEDS ORDERED: Sodium Chloride LOK Flush 10 mL Syringe IVFLUSH PRN ×2 (11:25)
[2017-03-25] MEDS: Hydrocortisone 50 mg/mL 2 mL Inj IVPUSH SCH ×2 (11:56→20:05)
[2017-03-25] MEDS: Pantoprazole 20 mg ER24 Tablet PO SCH (11:56)
[2017-03-25 12:54] VITALS: BP 109/71; PULSE 93; RESP 20; O2SAT 97
[2017-03-25] MEDS: LORazepam 1 mg Tablet PO PRN ×2 (13:01→22:17)
--- NOTE | 2017-03-25 13:02 | NUR ---
Anxiety Pt states feeling anxious and overwhelmed, states shes feeling like she wants to leave. Listened to pt, redirected, administered 1 mg Lorazepam. Mom in room. Care continues.
--- NOTE | 2017-03-25 14:44 | DRSVH ---
PROCEDURE: X-RAY CHEST ONE VIEW ([id number]) INDICATIONS: Catheter tip placement TECHNIQUE: One view of the chest was acquired. COMPARISON: [facility], CR, XR CHEST 1VW (PORTABLE), 01/04/2017, 5:16. FINDINGS: Surgical changes and devices: Right PICC present tip projected over the mid superior vena cava. Lungs and pleura: No pleural effusions or pneumothorax. Lungs are clear. Mediastinum: Mediastinal contours appear normal. Heart size is normal. Bones and chest wall: No suspicious bony lesions. Overlying soft tissues appear unremarkable. IMPRESSION: No acute cardiopulmonary disease. Dictated by: Jimmy Eubanks [facility] Interpreted: Lynnette Villa MD on 03/25/2017 at 11:54 Approved by: Lynnette Villa M.D. on 03/25/2017 at 14:42
[2017-03-25 17:03] VITALS: BP 107/65; PULSE 91; RESP 18; O2SAT 96
--- NOTE | 2017-03-25 19:23 | CONS ---
[address] [address] CONSULTATION REPORT PATIENT: MAE FELIZ : 1985 MR#: [id number] ADMIT: 03/24/2017 JOB ID: [id number] DATE OF SERVICE: 03/25/2017 It was a pleasure seeing this patient for small bowel obstruction. This is a 32-year-old lady who has been well known to this hospital due to her very complicated Crohn's history. She has been having Crohn's disease for over 10 years and she was medically refractory so she had a laparoscopic total proctocolectomy with end ileostomy at the [facility] in 2013. Then, the patient moved to the [facility] in late 2015 and has been seen by Dr. Valdez. With Dr. Valdez, several things have happened since the beginning of the year, she had several evidences of persistent nausea and vomiting with bowel obstruction. She had ostomy stenosis which require dilation by Dr. Valdez which had improved. She was on chronic steroid use in the past and later on Humira therapy. Multiple obstruction, near obstruction, recurrent flares were detected and managed. She had PICC lines for TPN and she had, at one point, NG feeding but this was not successful. At one point, she was found to be hypotensive in the clinic requiring immediate admission for rehydration, and she also had adrenal insufficiency, severe protein calorie malnutrition. She, at one point, did go to the [facility] and did see the surgeon there and they said she needs to have better nutritional status before any kind of surgery is done. She said she was in her usual state of health yesterday, but she said she ran out of pain medications and she started having worsening abdominal pain with nausea, vomiting x3. She noticed more frequent and more liquidy stools out of her ostomy. She was having more abdominal pain than usual, but she was not able to take her pain medication because she ran out, according to the patient. She came to the emergency department and emergency department obtained tests including CT which showed multiple dilated loops of small bowel compatible with high-grade obstruction. They were transferred to the [facility] and apparently the transfer was not successful. Surgery saw her as well as the ED and Medicine services as well. I did receive a phone call last night asking whether I was comfortable with having her here. I strongly advised that she should be transferred to [facility]. However, did not feel that she was a good surgical candidate. Therefore, the patient was admitted to the hospital. She was placed on n.p.o. NG tube was recommended. She was given IV fluids, antiemetics, pain control. Overnight, she was given pain medication. When I saw her several hours ago, her pain, she said, is a lot more tolerable, maybe 3-4/10. She does not feel nauseated any more and she said the ostomy tube was about 300 cc in the past 8 hours. Currently, she denies any nausea, vomiting. She said her abdominal pain is back to baseline. No blood in the ostomy, no black ostomy output, no chest pain, shortness of breath, skin rash. PAST MEDICAL HISTORY: Includes multiple hospitalization, recurrent stomal stenosis, acute exacerbation of Crohn's, suspected adrenal insufficiency, hypovolemic shock, severe Crohn's disease, DVT, anxiety, heart murmur, PE, acute heart failure with intubation. PAST SURGICAL HISTORY: Proctocolectomy with end ileostomy. FAMILY HISTORY: Noncontributory. SOCIAL: She never smoked. Does not use alcohol or drugs. PHYSICAL EXAMINATION: Patient is alert, oriented, does appear comfortable. Temp 36.5, pulse 91, respiration 18, blood pressure 107/65. Head and neck: No icterus. No lymphadenopathy. Lungs clear. Cardiovascular: Regular rate and rhythm. Normal S1, S2. Abdomen: Decreased bowel sounds. Occasionally high-pitched bowel sounds as well. Mildly distended. Extremities: No pitting edema of the ankles. Skin shows no jaundice. LABORATORY DATA: Hemoglobin 10.2, platelets 422,000. Chemistry: Shows BUN of 19, creatinine 0.41. Calcium 7.3, phosphorus 5.2. C. reactive protein 3.4, normal transaminase. Imaging shows that the patient is status post total colectomy with right lower quadrant ileostomy. Multiple dilated loops of small bowels up to 6.5 cm with high-grade obstruction. No free air. Multiloculated cysts along the post margin of the fundus of the uterus, stable compared to prior exam. Mesenteric and retroperitoneal lymphadenopathy. IMPRESSION: This is a lady who has definitely increased dilation of the small bowel size. This was reviewed with the radiologist and comes in with what looks like small bowel obstruction. I think what is happening is that the fluids or the contents in the intestines are bypassing the intestines and going through the fistula and coming out of the ostomy site. 300 cc in the past 8 hours. The abdomen seems to be more distended compared to her baseline and CT does show dilated bowels. It appears that a lot of medical and surgical interventions were done without success. She said she has gained some weight. But with current exacerbation, it appears that she would need surgery but [facility] did not feel that she is a surgical candidate. PLAN: Continue supportive therapy She should be transferred to the tertiary [facility] for medial options by an IBD specialist. In the meantime, I was informed that they were planning on using entyvio. We will try to get her ready for it by getting TB screen CXR hepattis screen. Rule out infection MTDD
[2017-03-25 20:00] VITALS: BP 109/67; PULSE 87; RESP 16; O2SAT 98
[2017-03-25] MEDS: Total Parenteral Nutrition 1 BAG IV SCH (21:09)
[2017-03-25] MEDS: TPN Per Pharmacist XX SCH (21:10)
[2017-03-26] VITALS (7 sets, daily range): BP systolic 118–141; BP diastolic 73–82; PULSE 70–93; RESP 16; O2SAT 97–100
[2017-03-26] MEDS: Heparin 5,000 Unit/mL Inj SUBQ SCH ×3 (00:30→16:47)
[2017-03-26] MEDS: HYDROmorphone 1 mg/mL Inj IVPUSH PRN ×8 (00:30→22:52)
[2017-03-26] MEDS: Ondansetron 2 mg/mL 2 mL Inj IVPUSH PRN (02:56)
[2017-03-26] MEDS: Hydrocortisone 50 mg/mL 2 mL Inj IVPUSH SCH ×3 (03:40→18:35)
[2017-03-26] MEDS: Pantoprazole 20 mg ER24 Tablet PO SCH (06:29)
--- NOTE | 2017-03-26 07:00 | PCM.PNSURG ---
Subjective Visit Information: Reason for Visit Acute Sbo Surgery/Surgery Date Post-Op Day # Date of Admission: Mar 24, 2017 at 22:02 Hospital Day # Subjective: nausea/vomiting is improved, abd pain is less, having output from stoma and EC fistula, pt was seen by GI service yesterday Objective Objective Arousable in bed Abd: stoma bag with output from ileostomy and EC fistula, soft, no peritoneal signs Vital Sign- Last 8 Hours Date Time Temp Pulse Resp B/P Pulse Ox O2 Delivery O2 Flow Rate FiO2 03/26/17 05:43 36.5 74 16 141/80 99 Room Air 03/26/17 05:11 93 03/26/17 00:03 36.6 85 16 122/74 97 Room Air Intake and Output- Last 8 Hour 03/26/17 Cumulative From/Thru 07:00 03/24/17 15:43 - 03/26/17 05:41 Intake Total 0 ml 2545 ml Output Total 1260 ml 3710 ml Balance -1260 ml -1165 ml Intake Oral 0 ml 0 ml IV Total 2545 ml Output Urine Total 1050 ml 2150 ml Stool Total 210 ml 1560 ml # Bowel Movements 0 0 Result Diagram: 03/24/17 1714 03/25/17 0500 Assessment & Plan Impression Complicated Crohn's pt with abd pain, n/v Ileostomy and EC fistulas Problems: Plan Concur with GI's recommendation to transfer her to tertiary care ctr (eg. ) for both medical and surgical management of her disease. We don't have the surgical expertise here to handle her disease process. VTE Prophylaxis: Sub-Q Heparin (Unfractionated) Resuscitation Status: CPR: Attempt Resuscitation Tobias Zaidi MD Mar 26, 2017 07:00
--- NOTE | 2017-03-26 07:08 | NUR ---
Pain Pt c/o abd pain 05/14 and was given Dilaudid 2mg IVP x3 this shift. Pt states the medication is helpful in reducing the pain. care ongoing.
[2017-03-26 08:58] LABS: Magnesium 1.9 mg/dL (1.6-2.6); Phosphorus 3.8 mg/dL (2.5-4.9)
[2017-03-26] MEDS: LORazepam 1 mg Tablet PO PRN ×2 (09:35→21:47)
--- NOTE | 2017-03-26 10:24 | PCM.PHAPRO ---
Progress Acute abdominal pain TPN Per Pharmacy - Labs remain stable - no changes necessary PARENTERAL NUTRITION ORDERS #2 25-Mar-17 Standard Hang Time: 2100 Substrates Total kcal: 1607 AMINO ACIDS 85 g DEXTROSE 255 g Total Volume (mL): 2000 LIPIDS 40 g Sterile Water for Injection QS mL To Infuse Over (hrs): 24 Total Volume 2000 mL At at a rate of (mL/hr): 83 Additives Sodium Chloride 40 mEq "typical" daily requirements Sodium Acetate 80 mEq Sodium 50-120mEq Potassium Chloride 20 mEq Potassium 60-120mEq Potassium Phosphate mEq Phosphate 20-40mEq Calcium Gluconate 9 mEq Magnesium 8-32mEq Magnesium Sulfate 16 mEq Calcium 9-22mEq Acetate* 80-120mEq Chloride* 80-120mEq Regular Insulin units *Depending on acid-base status Famotidine mg Multivitamins 1 std dose Insulin Regimen Trace Elements 1 std dose none Thiamine mg Regular Low Intensity Subcut Folic Acid 1 mg Regular Medium Intensity Subcut Ascorbic Acid mg Regular High Intensity Subcut Regular Insulin Infusion Other: Special Instructions: To be infused via central line only. For delay or inturruption of TPN contact the pharmacist for alternative replacement solution. Signature Date: MAE FELIZ [address] [facility] Pharmacy will continue to follow, thank you. Grecia Romero PharmD Mar 26, 2017 10:24
--- NOTE | 2017-03-26 10:43 | NUR ---
Social Work- Initial Assessment Data: See Initial Assessment. Pt is a 32 year old female admitted 03/24/17 for acute SBO per H&P. Pt's payor is [facility] and pt reports having [place] [employer] though this is not listed. Pt's PCP is Elissa Arteaga DO. Pt's NOK is mother Ria Matson, . Pt's readmit risk scores is 4 high risk. SW met with pt at bedside regarding discharge plan, SW role explained. Pt alert and oriented x3. Pt is likely to transfer to for medical treatment when a bed is available. Pt has a history of complicated Crohns Disease. Pt currently resides on [address] with her mother in a single story home where she is independent at baseline. Pt's mother is an emergency contact but pt does not anticipate SW will need it for discharge planning purposes. Pt uses a cane or walker to ambulate long distances/as needed but she has been ambulating independently in the hallway during this admission. Pt continues to drive. Pt has PICC access for TPN at home managed by [facility]. Home TPN formulas have been provided, pt continues home TPN regimen. RN comes once weekly to assist pt with PICC management and deliver supplies for TPN. SW placed call to Frank at [facility] who confirms that they are aware of pt's admission and are following her clinical progress. Pt has no other HH or SNF history. Pt has no LTC or VA benefits. Pt's completed POLST is on file. SW oriented pt to phone number on whiteboard. Pt agreeable. Pt is disheartened by potential transfer because she just returned home from and wants to spend time at home before going back. SW validated this. SW will continue to follow if additional needs arise. Assessment: Pt who is independent at baseline with TPN managed at home. Plan: Pt likely to transfer from [facility] to for continued medical/ surgical intervention when a bed can be found. SW will continue to follow if additional discharge needs arise. ASHLYN Hernandez Addendum: 03/26/17 at 1045 by DIANNA FRANCO SS Amended: Links added. Addendum: 03/26/17 at 1423 by DIANNA FRANCO SS LEO received call from pt regarding transfer to [facility] and requested that SERVICE TECHNICIAN come to bedside to speak with pt. Pt states that she has a well understood care plan from [facility] which includes weight gain with assistance of TPN, rest, and healing her fistulas. Pt reports coping strategies for bowel obstructions and pain, including massaging the area. Pt explained that prior to her admission she was out of her oxycodone 15 mg at home and was unable to obtain more due to delay in pharmacy delivery. Pt explained that she became anxious due to her pain and her mother called for medical assistance, resulting in her admission. Pt states that if [facility] is not able to meet her medical needs at this time she would like to return home and heal at home before pursuing further medical intervention at the [facility], as she has just returned from and would like to recuperate in a familiar environment rather than a hospital. LEO validated pt's concerns and agreed to advocate for pt to return home. notified of pt's concerns. SW later updated that MD had spoken with pt and was consulting with GI prior to pt's potential discharge home tomorrow. Frank, [facility] Liaison, stopped by pt's room as well to speak with her about open services. Pt will require resume home TPN orders at discharge. LEO will continue to follow. ASHLYN Henrandez MSW
--- NOTE | 2017-03-26 13:05 | PCM.PNMED ---
Subjective Date of Service Mar 26, 2017 Subjective pt stated that she has been TPN since Jan, discharged from on 02/13, pt did eat intermittently with prednisone prior to hospitalization had last nausea, vomiting 2days ago on admission. overnight, pt denied having any GI sx, pain is controlled with dilaudid. pt thinks she is back to her baseline. pt stated that she also developed four more fistulas. Surgery was tentatively planned after her nutrition status improves with TPN or giving her chances to heal fistula currently awaiting Entyvio to be approved. Humira last dose was Dec, pt stated that she developed CHF with Hurmia, was only on steroid recently since d/c from Exam Vital Signs Vital Sign - Last Date Time Temp Pulse Resp B/P Pulse Ox O2 Delivery O2 Flow Rate FiO2 03/26/17 08:56 82 03/26/17 05:43 36.5 16 141/80 99 Room Air Intake and Output 03/25/17 03/25/17 03/26/17 Cumulative From/Thru 15:00 23:00 07:00 03/24/17 15:43 - 03/26/17 05:41 Intake Total 495 ml 1050 ml 0 ml 2545 ml Output Total 1400 ml 1260 ml 3710 ml Balance 495 ml -350 ml -1260 ml -1165 ml Intake Oral 0 ml 0 ml 0 ml IV Total 495 ml 1050 ml 2545 ml Output Urine Total 1100 ml 1050 ml 2150 ml Stool Total 300 ml 210 ml 1560 ml # Bowel Movements 0 0 Exam NAD, comfortably laying down on the bed no JVD, MMM, no LAD RRR, nl s1, s2 no mrg CTAB, no w,c S,ND,NT, ostomy bag in place, hyperactiveBS+ warm, no edema, pulses 2/2 IVs and Medications Medications Reviewed: Medications were reviewed in detail Lab and Diagnostics Result Diagram: 03/24/17 1714 03/26/17 0800 X-Rays, CTs and MRIs CT ABDOMEN AND PELVIS WITHOUT CONTRAST 03/24 IMPRESSION: 1. Status post total colectomy and right lower quadrant ileostomy. 2. Multiple dilated loops of small bowel are loops of small bowel are dilated up to 6.5 cm compatible with high-grade obstruction. 3. No free air. 4. Multiloculated cyst along the posterior margin of the fundus of the uterus stable compared to prior examination. 5. Mesenteric and retroperitoneal lymphadenopathy which could be reactive versus less likely neoplastic. 6. Cholelithiasis. Dictated by: Keeley Bethea MD, PhD on 03/24/2017 at 19:05 Approved by: Keeley Bethea MD, PhD on 03/24/2017 at 19:22 Assessment & Plan Terra Beauchamp is a 32 year old female with Crohn's disease s/p total proctocolectomy with end ileostomy performed at [facility] in [place], [place]. She is on chronic glucocorticoids with Humira therapy, multiple prior obstructions/near obstructions near ostomy, recurrent flares, and recent left UE DVT secondary to PICC placement for TPN, who presented to [facility] emergency department via EMS complaining of increasing midline abdominal pain. Patient was diagnosed with high-grade small bowel obstruction. Gastroenterology and surgery on the case. acute, active 1. Acute Abdominal pain secondary to high grade small bowel obstruction -pt remained clinically stable, pain is controlled with current regimen, exam showed benign abdomen -recommended by GI,Surgery to transfer to . GI Dr.Daniel Wells didn't see any surgical needs at the moment, recommended conservative management for now -will try contact GI service at as well, -keep NPO, continue TPN - continue antiemetic medications, consider NG tube placement if symptoms worsens - c/w IV Dilaudid for pain -assisted plan from was to continue TPN at home and probable elective repair of fistulas 2 Crohn's disease s/p total proctocolectomy with RLQ ileostomy, pt failed Humira , stated that she developed CHF, currently awaits Vedolizumab -appreciate follow up -will continue hydrocortisone 50mg q8h 3 Severe protein/calorie malnutrition - improving with prior BMI 15 now 17.5 - Patient not a PEG tube candidate. 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 Hypokalemia - will replace - monitor dispo: pending, pt wishes to go home, not [facility], will discuss with [facility] and patient to optimize dispo VTE Prophylaxis: Sub-Q Heparin (Unfractionated) Resuscitation Status: CPR: Attempt Resuscitation Time spent 35min Vi Salcido MD Mar 26, 2017 09:10
--- NOTE | 2017-03-26 16:31 | NUR ---
Off unit For xrays via wheelchair at 16:30.
--- NOTE | 2017-03-26 17:46 | NUR ---
Pain/Cont Care: Pt continues to have pain at anterior abd fistula sites of 7-8/10. IV 2mg Dilaudid q3H maintains pain levels to 2-3/10. Pt was given one time does of PO Tylenol 650mg this shift, tolerated well with a sip of water, no nausea noted. 1mg PO Ativan given at 0940, and was successful at alleviating pt anxiety. New abdominal xray taken off floor tonight, results pending. Possible future transfer to . Pt continues to be NPO, TPN running at 83 and q6H blood glucose checks.
[2017-03-26] MEDS: TPN Per Pharmacist XX SCH (20:36)
[2017-03-26] MEDS: Total Parenteral Nutrition 1 BAG IV SCH (20:54)
--- NOTE | 2017-03-26 21:03 | PCM.PNMED ---
Subjective Date of Service Mar 26, 2017 Subjective Patient is doing well. She said her pain is 3 out of 10. End of 3-4 hours when she needs more pain medication, pain which is up to 7. Set her ostomy output is about 100 mL to 300 mL every 8 hours. Does not see any blood. Exam Vital Signs Vital Sign - Last Date Time Temp Pulse Resp B/P Pulse Ox O2 Delivery O2 Flow Rate FiO2 03/26/17 20:13 36.4 70 16 138/80 99 Room Air Intake and Output 03/25/17 03/25/17 03/26/17 Cumulative From/Thru 15:00 23:00 07:00 03/24/17 15:43 - 03/26/17 05:41 Intake Total 495 ml 1050 ml 0 ml 2545 ml Output Total 1400 ml 1260 ml 3710 ml Balance 495 ml -350 ml -1260 ml -1165 ml Intake Oral 0 ml 0 ml 0 ml IV Total 495 ml 1050 ml 2545 ml Output Urine Total 1100 ml 1050 ml 2150 ml Stool Total 300 ml 210 ml 1560 ml # Bowel Movements 0 0 Exam Patient is alert oriented does appear comfortable. Head and neck no icterus No lungs clear Cardiovascular regular rate and rhythm normal S1-S2. Abdomen soft decreased distention. Yesterday nontender I think that is because she just took her pain medications bowel sounds present Extremities no pitting edema ankles Skin shows no jaundice. Lab and Diagnostics Result Diagram: 03/24/17 1714 03/26/17 0800 X-Rays, CTs and MRIs CT ABDOMEN AND PELVIS WITHOUT CONTRAST 03/24 IMPRESSION: 1. Status post total colectomy and right lower quadrant ileostomy. 2. Multiple dilated loops of small bowel are loops of small bowel are dilated up to 6.5 cm compatible with high-grade obstruction. 3. No free air. 4. Multiloculated cyst along the posterior margin of the fundus of the uterus stable compared to prior examination. 5. Mesenteric and retroperitoneal lymphadenopathy which could be reactive versus less likely neoplastic. 6. Cholelithiasis. Dictated by: Keeley Bethea MD, PhD on 03/24/2017 at 19:05 Approved by: Keeley Bethea MD, PhD on 03/24/2017 at 19:22 Assessment & Plan Terra Beauchamp is a 32 year old female with Crohn's disease s/p total proctocolectomy with end ileostomy performed at [facility] in [place], [place]. She is on chronic glucocorticoids with Humira therapy, multiple prior obstructions/near obstructions near ostomy, recurrent flares, and recent left UE DVT secondary to PICC placement for TPN, who presented to [facility] emergency department via EMS complaining of increasing midline abdominal pain. Patient was diagnosed with high-grade small bowel obstruction. Clinically I think the obstruction is getting somewhat better. I was informed that the patient will most likely be transferred to the [facility] for medical treatment as well as possible concern for treatment. I was informed that patient was to begin entyvio in the near future. Patient does not know of her TB status for hepatitis status. Recommend TB screening Chest x-ray Obtain hepatitis A, B, and C status Continue pain control Thus far no evidence of infection. Continue TPN Her abdominal pain feels better and she wants to eat. If she is in sepsis staying tomorrow, consider clear liquid diet. Obtaining daily abdominal x-rays. Transfer the patient to the [facility] GI service for an opinion on medical options. VTE Prophylaxis: Sub-Q Heparin (Unfractionated) Resuscitation Status: CPR: Attempt Resuscitation Vj Brownlee MD Mar 26, 2017 21:03
[2017-03-27 00:24] VITALS: BP 133/78; PULSE 66; RESP 17; O2SAT 98
[2017-03-27] MEDS: HYDROmorphone 1 mg/mL Inj IVPUSH PRN ×3 (01:46→08:31)
[2017-03-27] MEDS: Heparin 5,000 Unit/mL Inj SUBQ SCH ×3 (01:46→16:30)
[2017-03-27] MEDS: Hydrocortisone 50 mg/mL 2 mL Inj IVPUSH SCH ×2 (01:57→11:24)
--- NOTE | 2017-03-27 03:07 | NUR ---
Pain/Intake Patient rating abdominal pain anywhere from 4-8/10 before medication administration. Receiving Dilaudid 2mg IVP N8blole PRN with effective results. Rating pain after administration a 3-4/10 or resting with eyes closed. Receiving TPN @ 83 ml/hr, remains NPO except for small sips of water with medication administration. Tolerates well. Addendum: 03/27/17 at 0552 by HERBERT CANTU RN TPN total this shift =2573 ml. Pump not cleared on day shift.
[2017-03-27 04:42] VITALS: PULSE 56
[2017-03-27] MEDS: Pantoprazole 20 mg ER24 Tablet PO SCH (04:49)
[2017-03-27 05:07] LABS: BASOPHILS % (AUTO) 0.2 % (0-3); EOSINOPHILS % (AUTO) 0 % (0-5); MONOCYTES % (AUTO) 4.6 % (4-12); Mean Corpuscular Hemoglobin 24.3 pg (27.0-35.0); NEUTROPHILS % (AUTO) 79.3 % (40-74); Platelet Count 356 bil/L (150-400)
[2017-03-27 05:40] LABS: Magnesium 2.1 mg/dL (1.6-2.6); Phosphorus 3.7 mg/dL (2.5-4.9)
[2017-03-27 05:58] VITALS: BP 125/73; PULSE 76; RESP 16; O2SAT 95
[2017-03-27 08:00] VITALS: PULSE 63
--- NOTE | 2017-03-27 09:30 | PCM.PNSURG ---
Subjective Date of Service: Mar 27, 2017 Date of Service: Mar 27, 2017 Visit Information: Reason for Visit Acute Sbo Surgery/Surgery Date Post-Op Day # Date of Admission: Mar 24, 2017 at 22:02 Hospital Day # 4 Subjective: Discussed patient status with patient. She feels better with pain management and anxiety. Notes less burning at 4 fistulas. Sleeping better. No chest pain or shortness of breath. Denies f/c. Postop General: Other (occasional cramping abdominal pain.) Gastrointestinal: No N/V, Passing Stool Postop Activity: Ambulating Independently Objective Vital Sign- Last 8 Hours Date Time Temp Pulse Resp B/P Pulse Ox O2 Delivery O2 Flow Rate FiO2 03/27/17 05:58 36.4 76 16 125/73 95 Room Air 03/27/17 04:42 56 Intake and Output- Last 8 Hour 03/27/17 Cumulative From/Thru 07:00 03/24/17 15:43 - 03/27/17 05:57 Intake Total 2573 ml 5118 ml Output Total 850 ml 5910 ml Balance 1723 ml -792 ml Intake Oral 0 ml 0 ml IV Total 2545 ml TPN/PPN 2573 ml 2573 ml Output Urine Total 750 ml 4150 ml Stool Total 100 ml 1760 ml # Bowel Movements 0 0 General: Alert, Cooperative, No Acute Distress Lungs: Clear to Auscultation Heart: Regular Rate/Rhythm Abdomen: Soft, Non-distended, Normoactive bowel tones, Ostomy pink & viable Result Diagram: 03/27/17 0455 03/27/17 0455 Assessment & Plan Impression Stabilizing Crohn's pt with improved abd pain, corrected n/v. Ileostomy functioning EC fistulas stable Not surgical here at this juncture. Barriers to discharge currently appear to be surrounding questions of tolerating a diet and appropriate pain management as outpt. Patient has clear understanding of trajectory for anticipated abdominal surgery when physically improved including additional weight gain. Patient does appear nervous for several reasons including cost re: starting new medication-->Entyvio. Problems: Plan Advance diet out patient pain plan Follow up [facility] Follow up outpatient for continued surgical planning Address pt. concerns and timing of vedolizumab tx May discharge from surgery perspective to Mother's home when medically ready VTE Prophylaxis: Sub-Q Heparin (Unfractionated) Resuscitation Status: CPR: Attempt Resuscitation Carlos Donato PA-C Mar 27, 2017 09:30
[2017-03-27 09:44] VITALS: BP 123/84; PULSE 72; RESP 18; O2SAT 100
--- NOTE | 2017-03-27 10:22 | PCM.PHAPRO ---
Progress Date of Service: Mar 27, 2017 TPN PARENTERAL NUTRITION ORDERS #3 27-Mar-17 Standard Hang Time: 2100 Substrates Total kcal: 1607 AMINO ACIDS 85 g DEXTROSE 255 g Total Volume (mL): 2000 LIPIDS 40 g Sterile Water for Injection QS mL To Infuse Over (hrs): 24 Total Volume 2000 mL At at a rate of (mL/hr): 83 Additives Sodium Chloride 40 mEq "typical" daily requirements Sodium Acetate 80 mEq Sodium 50-120mEq Potassium Chloride 20 mEq Potassium 60-120mEq Potassium Phosphate mEq Phosphate 20-40mEq Calcium Gluconate 9 mEq Magnesium 8-32mEq Magnesium Sulfate 16 mEq Calcium 9-22mEq Acetate* 80-120mEq Chloride* 80-120mEq Regular Insulin units *Depending on acid-base status Famotidine mg Multivitamins 1 std dose Insulin Regimen Trace Elements 1 std dose none Thiamine mg Regular Low Intensity Subcut Folic Acid 1 mg Regular Medium Intensity Subcut Ascorbic Acid mg Regular High Intensity Subcut Regular Insulin Infusion Other: Srinivas Arriola Mar 27, 2017 10:22
--- NOTE | 2017-03-27 11:32 | PCM.PNMED ---
Subjective Date of Service Mar 27, 2017 Subjective pt remains asymptomatic, no n/v, pain was controlled with iv dilaudid feel hungry, diet to advance to liquid per GI/surgery Exam Vital Signs Vital Sign - Last Date Time Temp Pulse Resp B/P Pulse Ox O2 Delivery O2 Flow Rate FiO2 03/27/17 09:44 36.3 72 18 123/84 100 Room Air Intake and Output 03/26/17 03/26/17 03/27/17 Cumulative From/Thru 15:00 23:00 07:00 03/24/17 15:43 - 03/27/17 05:57 Intake Total 0 ml 2573 ml 5118 ml Output Total 1350 ml 850 ml 5910 ml Balance -1350 ml 1723 ml -792 ml Intake Oral 0 ml 0 ml 0 ml IV Total 2545 ml TPN/PPN 2573 ml 2573 ml Output Urine Total 1250 ml 750 ml 4150 ml Stool Total 100 ml 100 ml 1760 ml # Bowel Movements 0 0 Exam NAD, comfortably laying down on the bed no JVD, MMM, no LAD RRR, nl s1, s2 no mrg CTAB, no w,c S,ND,diffusely tender, ostomy bag in place, hyperactiveBS+ warm, no edema, pulses 2/2 IVs and Medications Medications Reviewed: Medications were reviewed in detail Lab and Diagnostics Result Diagram: 03/27/1745403/27/17454 X-Rays, CTs and MRIs CT ABDOMEN AND PELVIS WITHOUT CONTRAST 03/24 IMPRESSION: 1. Status post total colectomy and right lower quadrant ileostomy. 2. Multiple dilated loops of small bowel are loops of small bowel are dilated up to 6.5 cm compatible with high-grade obstruction. 3. No free air. 4. Multiloculated cyst along the posterior margin of the fundus of the uterus stable compared to prior examination. 5. Mesenteric and retroperitoneal lymphadenopathy which could be reactive versus less likely neoplastic. 6. Cholelithiasis. Dictated by: Keeley Bethea MD, PhD on 03/24/2017 at 19:05 Approved by: Keeley Bethea MD, PhD on 03/24/2017 at 19:22 Assessment & Plan Terra Beauchamp is a 32 year old female with Crohn's disease s/p total proctocolectomy with end ileostomy performed at [facility] in [place], [place]. She is on chronic glucocorticoids with Humira therapy, multiple prior obstructions/near obstructions near ostomy, recurrent flares, and recent left UE DVT secondary to PICC placement for TPN, who presented to [facility] emergency department via EMS complaining of increasing midline abdominal pain. Patient was diagnosed with high-grade small bowel obstruction. Gastroenterology and surgery on the case. acute, active 1. Acute Abdominal pain secondary to high grade small bowel obstruction -pt remained clinically stable, pain is controlled with current iv regimen, exam showed benign abdomen -recommended by GI,Surgery to transfer to . GI Dr.Daniel Wells didn't see any surgical needs at the moment, recommended conservative management for now -will try contact GI service at as well, -advance diet to liquid, continue TPN - continue antiemetic medications, consider NG tube placement if symptoms worsens -pain regimen changed to home dose oxycodone -prison plan from was to continue TPN at home and probable elective repair of fistulas 2 Crohn's disease s/p total proctocolectomy with RLQ ileostomy, pt failed Humira , stated that she developed CHF, currently awaits Vedolizumab -appreciate follow up -will continue hydrocortisone 50mg q8h for now, likely switch to oral once pt is amenable for d/c 3 Severe protein/calorie malnutrition - improving with prior BMI 15 now 17.5 - Patient not a PEG tube candidate. She has previously been noncompliant with Dobhoff due to discomfort - Home Child Care Provider consultation - continue TPN 4 Hypochromic microcytic anemia, likely iron deficiency - monitor for indication for blood transfusion, no signs of bleeding - Acetaminophen as needed for mild pain/fever/headache - Bowel regimen as needed - Antiemetic as needed 5. Hypokalemia - will replace - monitor dispo: pending, pt wishes to go home, not [facility], pt could possibly can be discharged to home as transfer seems impossible(no accepting physicians at ), clinically remains stable. VTE Prophylaxis: Sub-Q Heparin (Unfractionated) VTE Mechanical Devices: Intermittant Pneumatic CD Resuscitation Status: CPR: Attempt Resuscitation Time spent 35min Vi Salcido MD Mar 27, 2017 11:32
--- NOTE | 2017-03-27 13:38 | NUR ---
Social Work: Continued Discharge Planning D: EMR reviewed. Pt is on day 3 of hospitalization. Per SW note 03/26, "pt states that if [facility] is not able to meet her medical needs at this time she would like to return home and heal at home before pursuing further medical intervention at the as she has just returned from and would like to recuperate in a familiar environment rather than a hospital. SW validated pt's concerns and agreed to advocate for pt to return home. notified of pt's concerns. LEO later updated that MD had spoken with pt and was consulting with GI prior to pt's potential discharge home tomorrow. Frank, [facility] Liaison, stopped by pt's room as well to speak with her about open services. Pt will require resume home TPN orders at discharge." LEO discussed pt's concerns from previous day with MD during AM multi-disciplinary rounds. stated that pt will go on oral abx tomorrow. MD stated that once pt is cleared by GI and Surgeon, pt can go home - likely tomorrow. LEO placed T/C to Frank at [facility] and confirmed pt [facility] has access to pt's record and that pt will likely discharge tomorrow on TPN. Frank stated that all pt needs is resume TPN order from MD and MD must state resume TPN in discharge instructions. LEO notified MD via cook page and will update MD at time of discharge. A: Pt for whom home infusion services for TPN has been deemed medically necessary. P: SW to confirm MD writes TPN order and includes instructions for TPN in discharge order/instructions. Pt likely to discharge tomorrow. LEO to fax discharge orders to [facility] at [phone]. ASHLYN Lopez
--- NOTE | 2017-03-27 14:25 | NUR ---
NUTRITION ASSESSMENT: ASSESS: Pt is a 32 YO female admitted with SBO. Pt is on chronic TPN at home due to inability to tolerate adequate PO intake to maintain her wt. She reported that she typically eats soft, bland foods at home like jello, pudding, mashed potatoes, macaroni and cheese etc. Pt receives her TPN through [facility], with same macronutrient formula continued this admission. Diet advanced today to full liquids, and pt. consumed 100% x 1 meal. 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 Cr 0.39, Glu 149. MEDS:Reviewed. Solu-cortef. GI: Stool via ostomy today. SKIN: No major issues, visible muscle/fat loss in arms, legs and face. WT: 49.5 kg, BMI 17.0 kg/m2, IBW: 59kg. Admit weight: 46.82 kg. DIET: Full liquids. PO intake 100% x 1 meal. TPN: 255g Dex, 85g AA and 40g lipids to provide 1607kcal and 85g pro (100% estimate needs). EST. NEEDS: wt Kcals: 1475-1725kcal/day (30-35kcal/kg) Pro: 70-90g/day (1.2-1.5g/kg IBW) Fluids: ~1500ml/day NUTRITION DIAGNOSIS: 1) Severe pro/kcal malnutrition related to altered GI function/chronic disease as evidence by BMI of 17.5 kg/m2, inability to tolerated adequate PO to maintain a healthy wt, visible severe muscle/fat loss and needs for TPN to receive adequate nutrition - PERSISTS. 2) Inadequate oral intake related to decreased ability to consume sufficient energy as evidenced by current NPO status - IMPROVED WITH DIET ADVANCE. NUTRITION INTERVENTION: 1) In the event pt. continues to tolerate PO intake well, will recommend to decrease macronutrient content in TPN next several days. MONITOR / EVAL: NPO, TPN kaylen, GI, labs, wt, POC, nutrition status. Will continue to monitor per high nutrition risk guidelines.
--- NOTE | 2017-03-27 14:52 | DRSVH ---
PROCEDURE: X-RAY ACUTE ABDOMINAL SERIES ([id number]) INDICATIONS: SBO follow up TECHNIQUE: One view chest and two views of the abdomen were acquired. COMPARISON: [facility], CT, CT ABD PELVIS WO CON, 03/24/2017, 18:36. [facility], CR, XR ABD ACUTE SERIES 3VW, 12/20/2016, 20:01. FINDINGS: Surgical changes and devices: None. Chest: Patient status post total colectomy and right lower quadrant ileostomy is present. Abdomen: Persistent gaseous distention of multiple small bowel loops throughout the abdomen and pelvi s with short air-fluid levels are identified. No pneumatosis or bowel wall thickening. Bones: No suspicious bony lesions. IMPRESSION: Patient is status post total colectomy and right lower quadrant ileostomy present. Persistent small bowel dilatation redemonstrated compatible with small bowel obstruction. Dictated by: Jimmy ESCALANTE Interpreted: Dominic Joyce MD on 03/26/2017 at 16:42 Approved by: Dominic Joyce M.D. on 03/27/2017 at 14:50
--- NOTE | 2017-03-27 14:55 | PCM.PNMED ---
Subjective Date of Service Mar 27, 2017 Subjective Abdominal pain under control. Again intensity 2-3 out of 10. She said her ostomy output is about 100-300 mL. She feels hungry and she wants to eat. Exam Vital Signs Vital Sign - Last Date Time Temp Pulse Resp B/P Pulse Ox O2 Delivery O2 Flow Rate FiO2 03/27/17 09:44 36.3 72 18 123/84 100 Room Air Intake and Output 03/26/17 03/26/17 03/27/17 Cumulative From/Thru 15:00 23:00 07:00 03/24/17 15:43 - 03/27/17 05:57 Intake Total 0 ml 2573 ml 5118 ml Output Total 1350 ml 850 ml 5910 ml Balance -1350 ml 1723 ml -792 ml Intake Oral 0 ml 0 ml 0 ml IV Total 2545 ml TPN/PPN 2573 ml 2573 ml Output Urine Total 1250 ml 750 ml 4150 ml Stool Total 100 ml 100 ml 1760 ml # Bowel Movements 0 0 Exam Patient is alert oriented comfortable. Head and neck no icterus Lungs clear Cardia vascular regular rate rhythm normal S1-S2 Abdomen soft nontender mild distention with decreased bowel sounds. There was no hyperactivity or rushes or rales Extremities no pedal edema the ankles Skin shows no jaundice. Lab and Diagnostics Result Diagram: 03/27/1745403/27/17454 X-Rays, CTs and MRIs CT ABDOMEN AND PELVIS WITHOUT CONTRAST 03/24 IMPRESSION: 1. Status post total colectomy and right lower quadrant ileostomy. 2. Multiple dilated loops of small bowel are loops of small bowel are dilated up to 6.5 cm compatible with high-grade obstruction. 3. No free air. 4. Multiloculated cyst along the posterior margin of the fundus of the uterus stable compared to prior examination. 5. Mesenteric and retroperitoneal lymphadenopathy which could be reactive versus less likely neoplastic. 6. Cholelithiasis. Dictated by: Keeley Bethea MD, PhD on 03/24/2017 at 19:05 Approved by: Keeley Bethea MD, PhD on 03/24/2017 at 19:22 Assessment & Plan Terra Beauchamp is a 32 year old female with Crohn's disease s/p total proctocolectomy with end ileostomy performed at [facility] in [place], [place]. She is on chronic glucocorticoids with Humira therapy, multiple prior obstructions/near obstructions near ostomy, recurrent flares, and recent left UE DVT secondary to PICC placement for TPN, who presented to [facility] emergency department via EMS complaining of increasing midline abdominal pain. Patient was diagnosed with high-grade small bowel obstruction. Clinically I think the obstruction is getting somewhat better. I think she is chronically obstructed. The reason why she is having high ostomy output is not the gastric content is bypassing the intestines through the fistulous and coming out of the ostomy. I understand Dr. Jon wanted her to start on entyvio. However I did not see any recent TB screen or hepatitis screen. She said she has not had any blood to like this in the past year.. I was informed that the patient will most likely be transferred to the [facility] for medical treatment as well as possible concern for treatment. Recommend TB screening Chest x-ray - done Obtain hepatitis A, B, and C status Continue pain control Thus far no evidence of infection. Continue TPN If she tolerated clear liquid diet, will sign off. Obtaining daily abdominal x-rays. Transfer the patient to the [facility] GI service for an opinion on medical options. VTE Prophylaxis: Sub-Q Heparin (Unfractionated) VTE Mechanical Devices: Intermittant Pneumatic CD Resuscitation Status: CPR: Attempt Resuscitation Vj Brownlee MD Mar 27, 2017 14:55
--- NOTE | 2017-03-27 15:26 | NUR ---
Social Work: Discharge D: EMR reviewed. Pt is on day 3 of hospitalization. asked if [facility] could open with pt today. LEO placed T/C to Frank at [facility] who confirmed they can reopen with pt today if MD writes resume TPN order in discharge instructions. LEO notified MD and MD stated he will write discharge order. LEO received T/C from Frank stating he would be at hospital to retrieve discharge instructions to resume TPN at 1600. Pt to discharge home via POV and resume TPN with [facility]. LEO does not anticipate any further discharge needs at this time but will continue to follow. A: Pt who is open with [facility] for TPN. P: Pt to discharge home via POV and resume TPN with [facility]. LEO does not anticipate any further discharge needs at this time but will continue to follow. ASHLYN Lopez Addendum: 03/27/17 at 1601 by COLE HERNÁNDEZ Frank from [facility] retrieved discharge orders/instructions/and resume [facility] TPN orders at 1600.
[2017-03-27] MEDS ORDERED: PRE20 PO (15:38)
--- NOTE | 2017-03-27 15:42 | PCM.DIMED ---
Discharge Instructions Date of Service Mar 27, 2017 Dates of Hospitalization Mar 24, 2017 at 22:02 Discharge Diagnosis Discharge Diagnosis Small wall obstruction hx of Crohn's disease s/p total proctocolectomy with end ileostomy Medication Instructions Additional med instructions You can take Oxycodone as needed for pain, You can also take Zofran 1 to 2tab for nausea, vomiting, every 4-8hours. If symptoms uncontrolled, please return to hospital. Given your long term acute care registered nurse steroid treatment. you need to follow slow tapering dose of prednisone as directed to prevent probable complication Diet Discharge Diet: Other (continue TPN, possibly try liquid diet) Activity Discharge Activity: No restrictions Call your provider Call your provider for: Vomitting, Excessive diarrhea, Other (abdominal pain) Patient Instructions Patient Instructions You were hospitalized with severe abdominal pain, nausea, vomiting, serial images show that you have small bowel obstruction, given this concerning findings, you were closely monitored in the hospital, your condition was stable without any surgical intervention Please note that follow up appointment with was requested, Please follow up with him in one week. You are being discharged to home with [facility] for T[facility]. You can try liquid diet. but stop if your become symptomatic Please coordinate with GI and surgical teams at for half-way plan Follow-up Provider: Kirby Valdez MD Follow-up with PCP in: 1 week Vi Salcido MD Mar 27, 2017 15:42
[2017-03-27] MEDS ORDERED: ONDA4TAB9 PO (15:43)
[2017-03-27] MEDS ORDERED: OXYC-474 PO (16:02)
[2017-03-27] MEDS ORDERED: FLUO20CA25 PO (16:02)
--- NOTE | 2017-03-27 17:53 | NUR ---
Discharge Orders for discharge were received. The patient was made aware of the plan for discharge and was agreeable to go. The patient was given information regarding her diagnosis and treatment, signs and symptoms to be aware of, follow up instructions, scripts for new medications as well as information on these new medications. The patient signified understanding of this information, verified by the teach back method. The patient then was dressed in her own clothing and her belongings gathered. The patient then ambulated to the main entrance where she entered an awaiting private vehicle. At the time of discharge the patient was alert and oriented, with no complaint of shortness of breath, chest pain, out of control discomfort, nausea or other difficulty. Upon discharge ostomy site well approximated, PICC line patent.
[2017-03-28 03:11] LABS: Hepatitis A Antibody IgM Negative (Negative); Hepatitis B Core Antibody IgM Negative (Negative)
--- NOTE | 2017-03-30 15:26 | PCM.DC.MED ---
Discharge Summary Date of Service Mar 27, 2017 Dates of Hospitalization Date of Hospital Admission Mar 24, 2017 at 22:02 Date of Discharge: Mar 27, 2017 Providers: Admitting Physician: Seth Hinojosa MD Primary Care Physician: Elissa Arteaga DO Attending Physician: Seth Hinojosa MD Diagnosis at Time of Discharge Diagnosis at Time of Discharge Small wall obstruction hx of Crohn's disease s/p total proctocolectomy with end ileostomy Consultations General surgery Gastroenterology Procedures XRay, CTs & MRIs CT ABDOMEN AND PELVIS WITHOUT CONTRAST 03/24 IMPRESSION: 1. Status post total colectomy and right lower quadrant ileostomy. 2. Multiple dilated loops of small bowel are loops of small bowel are dilated up to 6.5 cm compatible with high-grade obstruction. 3. No free air. 4. Multiloculated cyst along the posterior margin of the fundus of the uterus stable compared to prior examination. 5. Mesenteric and retroperitoneal lymphadenopathy which could be reactive versus less likely neoplastic. 6. Cholelithiasis. Dictated by: Keeley Bethea MD, PhD on 03/24/2017 at 19:05 Approved by: Keeley Bethea MD, PhD on 03/24/2017 at 19:22 Brief History HPI obtained by on 03/24 Terra Beauchamp is a 32 year old female with Crohn's disease s/p total proctocolectomy with end ileostomy performed at [facility] in [place], [place]. She is on chronic glucocorticoids with Humira therapy, multiple prior obstructions/near obstructions near ostomy, recurrent flares, and recent left UE DVT secondary to PICC placement for TPN, who presented to [facility] emergency department via EMS complaining of increasing midline abdominal pain Patient reported the pain started late last night, described as sharp, burning and aching in character and a 7/10 in severity without any radiation. Associated symptoms include dizziness, nausea and one episode of non bloody vomiting, mild headache and decreased appetite (unable to keep fluids down due to sever pain and reported she ran out of her OxyContin). Patient also reports looser stool in her ostomy bag. She denies dysuria, fever or chills. She is currently on TPN and clear liquid diet. She was recently at [facility] around February due to a Crohn flare but no surgery was reported by patient. Case discussed with Dr Ramirez, he spoke to Dr Zaidi who recommended transfer to but no indication for surgery and the patient will stay for further treatment. Hospital Course Terra Beauchamp is a 32 year old female with Crohn's disease s/p total proctocolectomy with end ileostomy performed at [facility] in [place], [place]. She is on chronic glucocorticoids with Humira therapy, multiple prior obstructions/near obstructions near ostomy, recurrent flares, and recent left UE DVT secondary to PICC placement for TPN, who presented to [facility] emergency department via EMS complaining of increasing midline abdominal pain. Patient was diagnosed with high-grade small bowel obstruction. Gastroenterology and surgery on the case. acute dx #Acute Abdominal pain secondary to high grade small bowel obstruction pt was monitored closely with conservative tx in the hospital given extensive hx of bowel surgery, refractory Crohn's dz. Surger/GI was consulted. Given complicated GI hx, refractory to medical/surgical tx, pt was recommended to transfer (previously followed) for possible surgery and comprehensive care with GI team. However, during the hospital course, pt clinically improved on TPN , no further GI sx except regular abdominal pain, which was initially controlled with iv dilaudid then oral Oxycodone home dose. Given stable condition, didn't recommended inpatient transfer, GI , Surgery also were comfortable sending patient to home and have her close follow up with GI team or . TPN was continued throughout hospitalization. snf plan for Crohn's dz and recently developed fistulas was to observe patient' s status while on TPN to allow some spontaneous healing time and possible elective surgery if required. Patient was also in the process of getting Entevio (Vedolizumab) for refractory Crohn's dz. Since pt was started on Hydrocortisone , plan was also to continue prednisone with slow taper to her home does 5mg daily. Appointment with was requested prior to d/c. chronic dx #Crohn's disease s/p total proctocolectomy with RLQ ileostomy, pt failed Humira , stated that she developed CHF, currently awaits Vedolizumab, #Severe protein/calorie malnutrition, on TPN, #Hypochromic microcytic anemia, stable, Exam Vital Signs (Last) Date Time Temp Pulse Resp B/P Pulse Ox O2 Delivery O2 Flow Rate FiO2 03/27/17 09:44 36.3 72 18 123/84 100 Room Air Exam NAD, comfortably laying down on the bed no JVD, MMM, no LAD RRR, nl s1, s2 no mrg CTAB, no w,c S,ND,diffusely tender, ostomy bag in place, hyperactiveBS+ warm, no edema, pulses 2/2 Test 03/24/17 17:14 03/24/17 21:43 03/27/17 04:55 Erythrocyte Sedimentation Rate 59mm/hr (0-32) Lactic Acid Level 1.1mmol/L (0.4-2.0) C-Reactive Protein 3.4mg/dL (0.0-0.5) Lipase 14U/L (13-60) Urine Color Yellow (YELLOW) Urine Appearance Clear (CLEAR,HAZY) Urine pH 7.0 (5.0-8.0) Urine Specific [place] 1.010 (1.003-1.035) Urine Protein Negativemg/dL (NEG,TRACE) Urine Glucose (UA) Negativemg/dL (NEGATIVE) Urine Ketones Negativemg/dL (NEGATIVE) Urine Occult Blood Negative (NEGATIVE) Urine Nitrite Negative (NEGATIVE) Urine Bilirubin Negative (NEGATIVE) Urine Urobilinogen Normalmg/dL (NORMAL) Urine Leukocyte Esterase Negative (NEGATIVE) Urine RBC 0-2/hpf (0-2) Urine WBC 0-5/hpf (0-5) Urine Epithelial Cells Moderate/hpf (NONE-MOD) Urine Crystals None seen (NONE SEEN) Urine Bacteria Few/hpf (NONE-FEW) Urine Hyaline Casts None/lpf (NONE) Urine Granular Casts None seen (NONE SEEN) Urine Waxy Casts None seen (NONE SEEN) Urine Red Blood Cell Casts None seen (NONE SEEN) Urine White Blood Cell Casts None seen (NONE SEEN) Urine Mucus None seen (None Seen) Urine Trichomonas None seen (NONE SEEN) Urine Yeast None (NONE SEEN) Urinalysis Comment None Urine Culture Reflexed Indicated White Blood Count 4.6th/mm3 (3.8-10.1) Red Blood Count 3.75mil/mm3 (3.90-5.20) Hemoglobin 9.1g/dL (12.0-15.6) Hematocrit 30.0% (35.0-46.0) Mean Corpuscular Volume 80.0fL (81-100) Mean Corpuscular Hemoglobin 24.3pg (27.0-35.0) Mean Corpuscular Hemoglobin Concent 30.3% (32.0-37.0) Red Cell Distribution Width 16.6% (12.3-15.4) Platelet Count 356bil/L (150-400) Neutrophils (%) (Auto) 79.3% (40-74) Lymphocytes (%) (Auto) 15.7% (14-46) Monocytes (%) (Auto) 4.6% (4-12) Eosinophils (%) (Auto) 0% (0-5) Basophils (%) (Auto) 0.2% (0-3) Sodium Level 142mEq/L (134-144) Potassium Level 4.0mEq/L (3.5-5.2) Chloride Level 104mEq/L (97-108) Carbon Dioxide Level 25mmol/L (18-29) Blood Urea Nitrogen 13mg/dL (6-20) Creatinine 0.39mg/dL (0.57-1.00) Estimat Glomerular Filtration Rate 273mL/min (>59) Glucose Level 149mg/dL (60-99) Calcium Level 9.2mg/dL (8.5-10.1) Phosphorus Level 3.7mg/dL (2.5-4.9) Magnesium Level 2.1mg/dL (1.6-2.6) Total Bilirubin 0.2mg/dL (0.0-1.2) Aspartate Amino Transf (AST/SGOT) 13U/L (0-50) Alanine Aminotransferase (ALT/SGPT) 9U/L (0-32) Alkaline Phosphatase 69U/L (25-150) Total Protein 7.0g/dL (6.4-8.4) Albumin 3.5g/dL (3.4-5.0) Hepatitis A IgM Antibody Negative (Negative) Hepatitis B Surface Antigen Negative (Negative) Hepatitis B Core IgM Antibody Negative (Negative) Hepatitis C Antibody <0.1s/co ratio (0.0-0.9) Hepatitis C Comment Comment (.) Discharge Medications Discharge Medications Ascorbate Calcium (Vitamin C) 500 Mg Tablet 500 MG PO DAILY (Reported) Dicyclomine (Bentyl) 10 Mg Capsule 10 MG PO QID Prescribed by: LASHA PRATHER DO Fluoxetine (Fluoxetine) 20 Mg Capsule 20 MG PO HS Prescribed by: VI LIPSCOMB MD Omeprazole Magnesium (Prilosec Otc) 20 Mg Tablet.dr 20 MG PO DAILY (Reported) Prednisone (PredniSONE) 20 Mg Tablet 40 MG PO DAILY Prescribed by: VI LIPSCOMB MD Sodium/K+/Mag/Ca/Chlor/Acetate (TPN Electrolytes II IV Soln) 20 Ml Vial Unknown Dose IV DAILY (Reported) As needed Lorazepam (Lorazepam) 1 Mg Tablet 1 MG PO TID PRN PRN For Anxiety (Reported) Ondansetron ODT (Zofran ODT) 4 Mg Tablet 4 MG PO Q4H PRN PRN For Nausea Prescribed by: VI LIPSCOMB MD Oxycodone (Roxicodone) 5 Mg Tablet 15 MG PO Q4-6H PRN PRN For Pain Prescribed by: VI LIPSCOMB MD Promethazine (Promethazine) 12.5 Mg Tablet 6.25 MG PO Q6H PRN PRN For Nausea ( Reported) Additional med instructions You can take Oxycodone as needed for pain, You can also take Zofran 1 to 2tab for nausea, vomiting, every 4-8hours. If symptoms uncontrolled, please return to hospital. Given your long-term steroid treatment. you need to follow slow tapering dose of prednisone as directed to prevent probable complication Followup Plan Disposition: home with home iv infusion TPN Discharge Diet: Other (continue TPN, possibly try liquid diet) Discharge Activity: No restrictions Patient Instructions You were hospitalized with severe abdominal pain, nausea, vomiting, serial images show that you have small bowel obstruction, given this concerning findings, you were closely monitored in the hospital, your condition was stable without any surgical intervention Please note that follow up appointment with was requested, Please follow up with him in one week. You are being discharged to home with home infusion solutions for TPN. You can try liquid diet. but stop if your become symptomatic Please coordinate with GI and surgical teams at for long-term plan Follow-up Provider: Kirby Valdez MD Follow-up with PCP in: 1 week Time spent 65min Vi Lipscomb MD Mar 30, 2017 15:03
== END 2017-03-27 17:49 | disposition home or self-care (01) | DRG 388 ==
LOC: SED 15:17 → EDBD 15:17 → OBSVTOIN 22:02 → OSC 22:02
PROVIDERS: ADMIT Hospitalist; ATTEND Hospitalist
PROC: 3E0436Z Introduction of Nutritional Substance into Central Vein, Percutaneous Approach (ICD-10-PCS; principal; 2017-03-25)
DX: K56.5 Intestinal adhesions [bands] with obstruction (postinfection) (principal); E43 Unspecified severe protein-calorie malnutrition; K50.90 Crohn's disease, unspecified, without complications; Z68.1 Body mass index [BMI] 19.9 or less, adult; E87.6 Hypokalemia; D50.9 Iron deficiency anemia, unspecified; Z93.4 Other artificial openings of gastrointestinal tract status; Z79.52 Long term (current) use of systemic steroids; Z86.718 Personal history of other venous thrombosis and embolism

== ENCOUNTER 2017-04-10 18:46 | Emergency (ER) | payer MEDICARE ==
[~2017-04-10] VITALS: Ht 165.1 cm; Wt 50.0 kg
[~2017-04-10 18:46] MED LIST changes: -ADAL40PE SQ; +FLUO20CA25 PO; -MULT-140 PO; +OMEP20TA24 PO; +ONDA4TAB9 PO; -PRE10 PO; +PRE20 PO; +SODI20VI2 IV; -[UNRECOGNIZED DRUG - CODE] SUBQ
[2017-04-10 18:50] VITALS: BP 138/84; PULSE 84; RESP 16; O2SAT 99
--- NOTE | 2017-04-10 19:07 | ED.REPORT ---
HPI-General Illness Date of Service Apr 10, 2017 ED Provider: Dr. Mast 32 y/o female with a hx of Crohn's disease presents to the ED from urgent care complaining of displaced PICC line for the past 3 days. The pt has had the PICC line for the past 4 months and has home care nurse check on it typically. The pt states "the nurse counted about 7 dots on the line and today, it was 9 dots". Nursing Notes Stated Complaint: PICC LINE PLACEMENT Chief Complaint: General Complaint Nursing Notes Reviewed: Yes Allergies: Coded Allergies: Iodinated Contrast- Oral and IV Dye (Verified Allergy, Severe, Shortness of Breath,full body rash/redness, 04/10/17) Scheduled Ascorbate Calcium (Vitamin C) 500 Mg Tablet 500 MG PO DAILY Dicyclomine (Bentyl) 10 Mg Capsule 10 MG PO QID Fluoxetine (Fluoxetine) 20 Mg Capsule 20 MG PO HS Omeprazole Magnesium (Prilosec Otc) 20 Mg Tablet. 20 MG PO DAILY Prednisone (PredniSONE) 20 Mg Tablet 40 MG PO DAILY Sodium/K+/Mag/Ca/Chlor/Acetate (TPN Electrolytes II IV Soln) 20 Ml Vial Unknown Dose IV DAILY Scheduled PRN Lorazepam (Lorazepam) 1 Mg Tablet 1 MG PO TID PRN PRN For Anxiety Ondansetron ODT (Zofran ODT) 4 Mg Tablet 4 MG PO Q4H PRN PRN For Nausea Oxycodone (Roxicodone) 5 Mg Tablet 15 MG PO Q4-6H PRN PRN For Pain Promethazine (Promethazine) 12.5 Mg Tablet 6.25 MG PO Q6H PRN PRN For Nausea General Time Seen by MD: 19:06 Chief Complaint Other (Picc line placement check) Hx Obtained From: Patient Arrived By: Walk-in Sudden in Onset?: Yes Onset Occurred: 3 days ago Symptom Duration: Since onset Severity: Current: No pain currently Severity: Maximum: No pain Recent Healthcare: No recent doctor visit Similar Sx Previous: No Past Medical History Past Medical History Notes: GI Dr. Valdez Multiple recent hospitalizations, most recent 12/05/16 November 06-2016 with recurrent stomal stenosis, acute exacerbation of Crohn's, suspected adrenal insufficiency and hypovolemic shock Past Medical History Severe Crohn's Disease - history of Humira and long-term glucocorticoid use Recent past and ostomy and has had recurrent problems with stomal stenosis History of recent admission with a component of suspected adrenal insufficiency secondary to long-term steroid use Severe malnutrition (patient was discharged from a hospital in November with a Dobbhoff feeding tube, but pulled it out during a severe "anxiety attack" and has thus far declined replacement) left upper extremity DVT diagnosed October 2016 secondary to PICC line - on daily fondaparinux therapy for 6 months following diagnosis in October 2016 Anxiety Heart murmur PE Episode of acute heart failure with intubation Past Surgical History Total proctocolectomy with end ileostomy Endoscopy in December 05 with ileostomy under fluoroscopy with balloon dilation of her recurrent stomal stenosis Family History Noncontributory Smoking History Never Smoker Social History Lives in [place], she is here visiting her mother Alcohol Use: Denies alcohol use Drug Use: Denies drug use Other Social History: Good social support, , Lives with children, Visiting locally Ambulatory Status Independent Review of Systems Reports: PICC line may be coming out Complete sys rev & neg: except as marked. Physical Exam Vital Signs Vital Signs Date Time Temp Pulse Resp B/P Pulse Ox O2 Delivery O2 Flow Rate FiO2 04/10/17 18:50 36.6 84 16 138/84 99 Room Air Initial VS: Reviewed Head / Eyes: Atraumatic, Normocephalic Neck: Supple, Non-tender, Full range of motion Respiratory: No respiratory distress Cardiovascular: Regular rate & rhythm Extremities: Vascular intact, Neuro intact, No swelling, No tenderness Skin: Warm, Dry, No cyanosis Neurologic: Alert, Oriented, Nonfocal General/Constitutional: Awake, Alert, No acute distress, Well appearing, Cooperative Abdomen: Atraumatic, No guarding Colostomy bag in place. Upper Extremities Upper Extremity / MS: Atraumatic, Full range of motion, No swelling, Non-tender , No erythema PICC line in place Interpretation & Diagnostics X-Ray Chest Interpretation Chest Xray Interpretation: IMPRESSION: 1. PICC line extends into the superior vena cava 4 cm from the cavoatrial junction. Dictated by: Chris Heredia M.D. on 04/10/2017 at 19:50 Approved by: Chris Heredia M.D. on 04/10/2017 at 19:51 View: Portable, 1 view Interpretation / Wet Read by: Interpret - Radiologist Re-Eval/Medical Decision Time of Eval: 19:10 Re-Evaluation/Progress Note: Rechecked pt. Discussed imaging results, diagnosis and plan to discharge. Pt understands and agrees with the plan. F/U instructions and RTER warning given. All questions addressed. Counseled Regarding: Diagnosis, Need for follow-up, When/why to return to ED Discharge & Departure Primary Impression: Crohn's disease Gastrointestinal tract location: unspecified location Digestive disease complication type: without complication Qualified Code: K50.90 - Crohn's disease, unspecified, without complications Disposition: Home Discharge Condition All VS Reviewed: Yes Condition: Stable Additional Instructions: Thank you for entrusting us with your care today. Your X-ray is reassuring. The PICC line looks okay and is in place. It is not recommended to push the PICC line in if you suspect it is coming out. Return to the emergency department in case it comes out or needs further attention. Referrals: Elissa Arteaga DO (PCP) Humberto Couch DO (Family) Scribe Attestation Portions of this note were transcribed by Shanell Aden. I, , personally performed the history, physical exam and medical decision- making;I reviewed and confirmed the accuracy of the information in the transcribed note. Signed by Taiwo Bauman. 04/10/17 22:30 copies to: Elissa Arteaga DO; Humberto Couch Gary R DO Apr 10, 2017 19:07 Shanell Aden Apr 10, 2017 20:28
--- NOTE | 2017-04-10 19:52 | DRSVH ---
PROCEDURE: X-RAY CHEST ONE VIEW, PORTABLE ([id number]) INDICATIONS: verify PICC placement TECHNIQUE: One view of the chest was acquired. COMPARISON: [facility], CR, XR CHEST 1VW, 03/25/2017, 11:22. FINDINGS: Surgical changes and devices: There is a right upper extremity PICC line with the tip in the superior vena cava approximately 4 cm from the cavoatrial junction. Lungs and pleura: No pleural effusions or pneumothorax. Lungs are clear. Mediastinum: Mediastinal contours appear normal. Heart size is normal. Bones and chest wall: No suspicious bony lesions. Overlying soft tissues appear unremarkable. IMPRESSION: 1. PICC line extends into the superior vena cava 4 cm from the cavoatrial junction. Dictated by: Chris Heredia M.D. on 04/10/2017 at 19:50 Approved by: Chris Heredia M.D. on 04/10/2017 at 19:51
== END 2017-04-10 20:57 | disposition home or self-care (01) ==
LOC: SED 18:46
DX: K50.90 Crohn's disease, unspecified, without complications (principal); F41.9 Anxiety disorder, unspecified; Z91.041 Radiographic dye allergy status; Z86.711 Personal history of pulmonary embolism
CPT/HCPCS: 71010; 99283; G0463

== ENCOUNTER 2017-06-10 00:29 | Day surgery (SDC) | payer MEDICARE, MEDICAID ==
[~2017-06-10 00:29] MED LIST changes: -FLUO20CA25 PO; +FLUO40CA PO
[2017-06-10] MEDS ORDERED: Lactated Ringer's 1,000 ML IV ONE (06:00)
== END 2017-06-10 23:59 | disposition home or self-care (01) ==
LOC: END 00:29
PROVIDERS: ATTEND Internal Medicine Gastroenterology
DX: K50.818 Crohn's disease of both small and large intestine with other complication (principal); Z53.8 Procedure and treatment not carried out for other reasons

== ENCOUNTER 2017-06-10 10:34 | Emergency (ER) | payer MEDICARE, MEDICAID ==
[~2017-06-10] VITALS: Ht 165.1 cm; Wt 54.5 kg
[2017-06-10 10:59] VITALS: BP 102/66; PULSE 111; RESP 13; O2SAT 100
--- NOTE | 2017-06-10 11:08 | ED.REPORT ---
HPI-Chest Pain Under 40 Date of Service Jun 10, 2017 ED Provider: Servando Herr MD Patient is a 32 year old female with a history of Crohn's disease and DVT who presents to the ED via EMS complaining of constant chest pressure onset 1999 last night. Associated symptoms include heart palpitations, difficulty breathing out, nausea, dizziness, shakiness and anxiety. Patient also complains of abdominal pain that she attributes to her Crohn's. She denies vomiting, leg swelling, lightheadedness or pain. The patient reports that she has experienced similar symptoms with her anxiety and when her abdominal pain is worse, it exacerbates her anxiety. Nursing Notes Stated Complaint: ANXIETY Chief Complaint: Chest Pain Nursing Notes Reviewed: Yes Allergies: Coded Allergies: Iodinated Contrast- Oral and IV Dye (Verified Allergy, Severe, Shortness of Breath,full body rash/redness, 05/23/17) Scheduled Ascorbate Calcium (Vitamin C) 500 Mg Tablet 500 MG PO DAILY Dicyclomine (Bentyl) 10 Mg Capsule 10 MG PO QID Fluoxetine (Fluoxetine) 40 Mg Capsule 40 MG PO DAILY Omeprazole Magnesium (Prilosec Otc) 20 Mg Tablet.dr 20 MG PO DAILY Prednisone (PredniSONE) 20 Mg Tablet 40 MG PO DAILY Sodium/K+/Mag/Ca/Chlor/Acetate (TPN Electrolytes II IV Soln) 20 Ml Vial Unknown Dose IV DAILY Scheduled PRN Lorazepam (Lorazepam) 1 Mg Tablet 1 MG PO TID PRN PRN For Anxiety Ondansetron ODT (Zofran ODT) 4 Mg Tablet 4 MG PO Q4H PRN PRN For Nausea Oxycodone (Roxicodone) 5 Mg Tablet 15 MG PO Q4-6H PRN PRN For Pain Promethazine (Promethazine) 12.5 Mg Tablet 6.25 MG PO Q6H PRN PRN For Nausea General Time Seen by MD: 11:07 Chief Complaint Chest pain Hx Obtained From: Patient Arrived By: Ambulance Sudden in Onset?: Yes Onset Occurred: Yesterday Symptom Duration: Constant Location: : Substernal Quality: Pressure Radiation: : Does not radiate Severity: Current: Moderate Recent Healthcare: Recent doctor visit Past Medical History Past Medical History Notes: GI Dr. Valdez Multiple recent hospitalizations, most recent 12/05/16 November 06-2016 with recurrent stomal stenosis, acute exacerbation of Crohn's, suspected adrenal insufficiency and hypovolemic shock Past Medical History Severe Crohn's Disease - history of Humira and long-term glucocorticoid use Recent past and ostomy and has had recurrent problems with stomal stenosis History of recent admission with a component of suspected adrenal insufficiency secondary to long-term steroid use Severe malnutrition (patient was discharged from a hospital in November with a Dobbhoff feeding tube, but pulled it out during a severe "anxiety attack" and has thus far declined replacement) left upper extremity DVT diagnosed October 2016 secondary to PICC line - on daily fondaparinux therapy for 6 months following diagnosis in October 2016 Anxiety Heart murmur PE Episode of acute heart failure with intubation Past Surgical History Total proctocolectomy with end ileostomy Endoscopy in December 05 with ileostomy under fluoroscopy with balloon dilation of her recurrent stomal stenosis Family History Noncontributory Smoking History Never Smoker Social History Lives in [place], she is here visiting her mother Alcohol Use: Denies alcohol use Drug Use: Denies drug use Other Social History: Good social support, , Lives with children, Visiting locally Ambulatory Status Independent Review of Systems Constitutional: Denies: Chills, Fever Respiratory: Reports: Shortness of breath (difficult to breath out), Denies: Non-productive cough Cardiovascular: Reports: Chest pain ("pressure") GI: Reports: Abdominal pain, Nausea, Denies: Vomiting Musculoskeletal: Denies: Extremity pain, Extremity swelling Skin: Denies Itching, Denies Rash Neurologic: Reports: Dizziness, Shaking, Denies: Lightheaded Complete sys rev & neg: except as marked. Physical Exam Initial Vital Signs Vital Signs (First) Date Time Temp Pulse Resp B/P Pulse Ox O2 Delivery O2 Flow Rate FiO2 06/10/17 10:59 36.6 111 13 102/66 100 Room Air Initial VS: Reviewed General/Constitutional: Awake, Alert Respiratory / Chest: Atraumatic, Breath sounds NL, Breath sounds = bilat, No respiratory distress Cardiovascular: Heart sounds NL, No murmurs Heart Rate / Rhythm: Positive: Tachycardia Abdomen: Atraumatic, Soft, Non-tender, No guarding, No rebound ileostomy in place with green stool Lower Extremity / Pelvis / MS: Atraumatic, No edema Skin: Atraumatic, Color NL, No rash, Warm, Dry Neurologic: Oriented X3, Speech NL Psychiatric: Affect NL, Mood NL Head / Eyes: Atraumatic, Normocephalic, PERRL, EOMI Upper Extremity / MS: Atraumatic, Full range of motion Interpretation & Diagnostics Lab Results Interpretation Result Diagram: 06/10/17 1145 06/10/17 1145 Test 06/10/17 11:45 White Blood Count 4.6th/mm3 (3.8-10.1) Red Blood Count 4.80mil/mm3 (3.90-5.20) Hemoglobin 9.8g/dL (12.0-15.6) Hematocrit 31.9% (35.0-46.0) Mean Corpuscular Volume 66.5fL (81-100) Mean Corpuscular Hemoglobin 20.4pg (27.0-35.0) Mean Corpuscular Hemoglobin Concent 30.7% (32.0-37.0) Red Cell Distribution Width 18.7% (12.3-15.4) Platelet Count 458bil/L (150-400) Neutrophils (%) (Auto) 71.6% (40-74) Lymphocytes (%) (Auto) 20.7% (14-46) Monocytes (%) (Auto) 6.7% (4-12) Eosinophils (%) (Auto) 0.4% (0-5) Basophils (%) (Auto) 0.4% (0-3) Prothrombin Time 11.0sec (8.1-12.5) Prothromb Time International Ratio 1.03ratio D-Dimer < 0.5mg/L FEU (<0.50) Sodium Level 141mEq/L (134-144) Potassium Level 4.8mEq/L (3.5-5.2) Chloride Level 105mEq/L (97-108) Carbon Dioxide Level 20mmol/L (18-29) Blood Urea Nitrogen 18mg/dL (6-20) Creatinine 0.48mg/dL (0.57-1.00) Estimat Glomerular Filtration Rate 215mL/min (>59) Glucose Level 118mg/dL (60-99) Calcium Level 9.1mg/dL (8.5-10.1) Magnesium Level 2.0mg/dL (1.6-2.6) Total Bilirubin 0.3mg/dL (0.0-1.2) Aspartate Amino Transf (AST/SGOT) 46U/L (0-50) Alanine Aminotransferase (ALT/SGPT) 30U/L (0-32) Alkaline Phosphatase 132U/L (25-150) Troponin T < 0.010ug/L (0.0-0.011) Pro-B-Type Natriuretic Peptide 27.73pg/mL (0-130) Total Protein 8.1g/dL (6.4-8.4) Albumin 3.8g/dL (3.4-5.0) Lipase 23U/L (13-60) ECG Interpretation ECG Interpretation: sinus tachycardia, rate [address], T changes Time: 11:06 Interpreted by: ED physician X-Ray Chest Interpretation Chest Xray Interpretation: IMPRESSION: No acute cardiopulmonary disease. Dictated by: Maikol Guido M.D. on 06/10/2017 at 11:29 Approved by: Maikol Guido M.D. on 06/10/2017 at 11:30 Interpretation / Wet Read by: Interpret - Radiologist Re-Eval/Medical Decision Med Decision/Clinical Course 32-year-old female history of anxiety, Crohn's presenting with substernal chest pain since last night. It has been constant. No associated symptoms. She tachycardic in the low 1 teens on arrival. This improved with Ativan. As negative. Chest x-ray was clear. Troponins are negative. EKG sinus rhythm. Likely anxiety. Symptoms resolved with Ativan. She will follow-up with her primary doctor. Return precautions given. Re-Evaluation/Progress : Time of Eval: 14:03 Re-Evaluation/Progress Note: Discussed results and plan for discharge. Patient understands and agrees to plan. All questions were addressed. Counseled Regarding: Diagnosis, Lab results, Need for follow-up, When/why to return to ED Discharge & Departure Primary Impression: Non-cardiac chest pain Additional Impression: Anxiety Disposition: Home Discharge Condition All VS Reviewed: Yes Condition: Stable Patient Instructions: Anxiety (ED) Additional Instructions: Your labs, EKG and chest X-ray were all normal and reassuring. It is likely that your symptoms were part of your anxiety. You can take Tylenol as directed for pain. Follow up with your primary care physician in 2-3 days. Return to the emergency department if you develop any new or concerning symptoms. Referrals: Elissa Arteaga DO (PCP) Scribe Attestation Portions of this note were transcribed by Gayatri Morrison. I, Dr. Herr personally performed the history, physical exam and medical decision-making; I reviewed and confirmed the accuracy of the information in the transcribed note. Signed by: Taiwo Burgos, 06/10/17 copies to: Elissa Arteaga Ben M MD Jun 10, 2017 11:08 Marybel Morrison Jun 10, 2017 11:36
--- NOTE | 2017-06-10 11:32 | DRSVH ---
PROCEDURE: X-RAY CHEST ONE VIEW, PORTABLE ([id number]) INDICATIONS: 32 year-old female with shortness of breath. TECHNIQUE: One view of the chest was acquired. COMPARISON: [facility], CR, XR CHEST 1VW (PORTABLE), 04/10/2017, 19:18. [facility], CR, XR ABD ACUTE SERIES 3VW, 03/26/2017, 16:38. [facility], CR, XR CHEST 1VW, 03/06, 11:22. FINDINGS: Surgical changes and devices: Right PICC is again noted, with tip in the upper superior vena cava. Lungs and pleura: No pleural effusions or pneumothorax. Lungs are clear. Mediastinum: Mediastinal contours appear normal. Heart size is normal. Bones and chest wall: No suspicious bony lesions. Overlying soft tissues appear unremarkable. IMPRESSION: No acute cardiopulmonary disease. Dictated by: Maikol Guido M.D. on 06/10/2017 at 11:29 Approved by: Maikol Guido M.D. on 06/10/2017 at 11:30
[2017-06-10] MEDS ORDERED: 0.9% Sodium Chloride 1,000 ML IV ONE (11:39)
[2017-06-10] MEDS ORDERED: Ondansetron 2 mg/mL 2 mL Inj IVPUSH PRN (11:40)
[2017-06-10 11:55] LABS: BASOPHILS % (AUTO) 0.4 % (0-3); EOSINOPHILS % (AUTO) 0.4 % (0-5); MONOCYTES % (AUTO) 6.7 % (4-12); Mean Corpuscular Hemoglobin 20.4 pg (27.0-35.0); Mean Corpuscular Volume 66.5 fL (81-100); NEUTROPHILS % (AUTO) 71.6 % (40-74); Platelet Count 458 bil/L (150-400)
[2017-06-10 12:23] LABS: TROPONIN T < 0.010 ug/L (0.0-0.011)
[2017-06-10 13:46] VITALS: BP 108/57; PULSE 102; RESP 13; O2SAT 100
[2017-06-10 14:01] LABS: INR 1.03 ratio
[2017-06-10] MEDS ORDERED: LORazepam 1 mg Tablet PO ONE (14:30)
[2017-06-10 14:31] VITALS: BP 108/57; PULSE 101; RESP 17; O2SAT 98
[2017-06-17] MEDS ORDERED: DIL4T PO (14:03)
== END 2017-06-10 14:33 | disposition home or self-care (01) ==
LOC: SED 10:34 → EDUNIT# 10:34 → EDBD 10:34 → SED 14:33
DX: R07.89 Other chest pain (principal); F41.9 Anxiety disorder, unspecified; R00.2 Palpitations; R42 Dizziness and giddiness; K50.90 Crohn's disease, unspecified, without complications; Z88.8 Allergy status to other drugs, medicaments and biological substances
CPT/HCPCS: 36415; 71010; 80053; 83690; 83735; 83880; 84484; 85025; 85378; 85610; 93005; 96361; 96374; 96375; 99285; J2060; J2270; J2405; J7030

== ENCOUNTER → 2017-06-17 | Day surgery (SDC) | payer MEDICARE ==
[~2017-06-17] VITALS: Ht 165.1 cm; Wt 56.7 kg
[~2017-06-17] MED LIST changes: +Alteplase (Cathflo) 1 mg/mL 2 mL Inj IVPUSH ONE; +DIL4T PO; +Dexamethasone 4 mg/mL Inj IVPUSH PRN; +Lactated Ringer's 1,000 ML IV ONE; +Lactated Ringer's 1,000 ML IV SCH; +MetoCLOpramide 5 mg/mL 2 mL Inj IVPUSH PRN; +Ondansetron 2 mg/mL 2 mL Inj IVPUSH PRN; +Sodium Chloride LOK Flush 10 mL Syringe IVFLUSH PRN; +fentaNYL-PF 50 mCg/mL 2 mL Inj IVPUSH ONE; +fentaNYL-PF 50 mCg/mL 2 mL Inj IVPUSH PRN
[2017-06-17 14:04] VITALS: BP 108/73; PULSE 103; RESP 14; O2SAT 99
--- NOTE | 2017-06-17 14:37 | PCM.HPANE ---
Patient Data Surgeon Admitting Provider: Attending Provider:Kirby Valdez MD Primary Care Physician:Elissa Arteaga DO Other Provider:Kathleen Gordillo Anesthesia Reason for Visit Crohns Disease Ht/WT & BMI Height (Feet): 5 Height (Inches): 5 Weight (Kilograms): 56.70 Body Mass Index 20.00 Allergies Coded Allergies: Iodinated Contrast- Oral and IV Dye (Verified Allergy, Severe, Shortness of Breath,full body rash/redness, 05/23/17) Past Anesthesia History Anesthesia History: Denies:: Abnormal Airway, Anesthesia Reactions, Difficult Intubation, Fam Anesthesia Reaction, Fam Malignant Hypertherm, Malignant Hyperthermia Diabetes History Hx Diabetes?: No MRSA MRSA: No Medications Hypertension Medication: No Home Meds Incl Beta Radha: No Active Scripts Oxycodone (Roxicodone)5 Mg [id number] Mg PO Q4-6H PRN For Pain #84 TABLET Ref 0 Prov:Vi Salcido MD 03/27/17 Ondansetron ODT (Zofran ODT)4 Mg Tablet4 Mg PO Q4H PRN For Nausea #20 TABLET Prov:Vi Salcido MD 03/27/17 Dicyclomine (Bentyl)10 Mg Bufswjw36 Mg PO QID #120 CAPSULE Prov:Karissa Vicente DO 10/04/16 Reported Medications Hydromorphone (Dilaudid)4 Mg Tablet4 Mg PO Q4H PRN Pain Ref 0 06/17/17 Fluoxetine 40 Mg Kgzsciz85 Mg PO DAILY Ref 0 05/23/17 Sodium/K+/Mag/Ca/Chlor/Acetate (TPN Electrolytes II IV Soln)20 Ml VialUnknown Dose IV DAILY 03/24/17 Omeprazole Magnesium (Prilosec Otc)20 Mg Tablet.dr20 Mg PO DAILY #1 PKG Ref 0 03/24/17 Lorazepam 1 Mg Tablet1 Mg PO TID PRN For Anxiety Ref 0 12/05/16 Ascorbate Calcium (Vitamin C)500 Mg Pqtwnn280 Mg PO DAILY 11/06/16 Promethazine 12.5 Mg Tablet6.25 Mg PO Q6H PRN For Nausea 10/21/16 Discontinued Scripts Prednisone (PredniSONE)20 Mg Cqtxpi99 Mg PO DAILY #30 TABLET Ref 0 Prov:Vi Salcido MD 03/27/17 History History of ENT Problems?: No HEENT History: Denies:: Abnormal Airway Difficult Intubation Dysphagia Hearing Problem Sinus Problem Denture Type: None Teeth Condition: Within Normal Limits Hx of Heart Problems?: Yes Cardiovascular History: Positive for:: Edema (Past) Denies:: Cardiac Surgery Chest Pain Congestive Heart Failure Heart Murmur Hypertension Irregular Heartbeat Pacemaker Thrombophlebitis Other Cardiac History: heart failure in December related to Humara and malnutrition Hx of Respiratory Problem?: No Respiratory History: Denies:: Asthma COPD Chest Surgery Dyspnea Emphysema Hemoptysis Pneumonia Tuberculosis Hx Neurologic Problems?: Yes Neurological History: Positive for:: Dizziness Headaches Denies:: Alzheimer's Disease CVA Dementia Parkinson's Disease Seizures Hx of GI Problems?: Yes Hx of Problems?: No Female Hx: Denies:: Currently Endometriosis Pelvic Inflammatory Problems with Breasts? Hx Musculoskeletal Problems?: Yes Musculoskeletal History: Denies:: Back Injury Joint Replacement Musculoskeletal Trauma Hx of Psycho/Social Problems?: Yes Psycho Social History: Positive for:: Anxiety Hx Depression Denies:: Bipolar Disorder Suicide Attempt Hx Surgeries?: Yes (total proctolectomy with end illeostomy ) Hx Any Other Health Problems?: Yes Other History: Positive for:: Hospitalization (Crohns/dehydration) Denies:: Cancer Thyroid Disease History Blood Transfusions: Positive for:: Blood Transfusions Denies:: Blood Transfuse Reaction Hx Diabetes: No Hx Alcohol Use: NoHx Substance Use: No Smoking Status: Never Smoker Have You Smoked inLast 12 mo: No Stop/Bang Treated for Sleep Apnea?: No Do You Have a CPAP Machine?: No S-Snoring: Do You Snore Loudly: No T-Tired: feel tired, fatigued: No O-Obsered: Observed not breath: No P-Blood Pressure: treated: No B- Body Mass Index > 35 kg/m2: No A- Age over 50: No N- Neck Large Circumference: No G- Gender Male: No FELIX Total Score: 0 FELIX Risk Assessment: Low Risk, <3 Yes Risk Assessment Category Category 1A: Patient has history of documented sleep apnea, and HAS NOT received any narcotic, sedative or anesthesia administration during this stay. Category 1B: Patient has history of documented sleep apnea, and HAS received any narcotic , sedative or anesthesia administration during this stay Category 2: Patient has SUSPECTED Obstructive Sleep Apnea, and HAS received any narcotic , sedative or anesthesia administration during this stay. Category 3: Patient has SUSPECTED Obstructive Sleep Apnea and HAS NOT received narcotic, sedative or anesthesia administration during this stay. Category 4: Outpatient in Procedural Areas with known sleep apnea or who screen positive for High Risk via the STOP/BANG questionnaire. Exam Exam Vital Signs Vital Signs Date Time Temp Pulse Resp B/P Pulse Ox O2 Delivery O2 Flow Rate FiO2 06/17/17 14:04 103 14 108/73 99 Room Air General Appearance: Oriented X3 HEENT/AIRWAY: MP 2 Lungs: Normal Air Movement Heart: Regular Rate/Rhythm Plan Impression Patient chart reviewed, patient interviewed and anesthestic plan with risks, benefits, and alternatives discussed, and informed consent obtained. ASA Physical Status: ASA3 Severe Disease Anesthetic Plan: MAC Bene/Risks/Altern/Consents: Yes HP Complete Prior to Induction: Yes Fili Eugene MD Jun 17, 2017 14:37
[2017-06-17 15:43] VITALS: BP 84/55; PULSE 91; RESP 14; O2SAT 91
[2017-06-17 15:53] VITALS: BP 107/68; PULSE 106; RESP 14; O2SAT 94
[2017-06-17 16:06] VITALS: BP 105/72; PULSE 111; RESP 14; O2SAT 94
[2017-06-17 16:20] VITALS: BP 112/65; PULSE 107; RESP 14; O2SAT 96
[2017-06-17 16:22] VITALS: BP 103/65; PULSE 102; RESP 12; O2SAT 96
--- NOTE | 2017-06-17 16:24 | ENDO ---
[address] [address] ENDOSCOPY PROCEDURE PATIENT: MAE FELIZ : 1985 MR#: [id number] ADMIT: 06/17/2017 JOB ID: [id number] DATE: 06/17/2017 PROCEDURE: Limited terminal ileoscopy by way of the right lower quadrant stoma under fluoroscopy with biopsy and balloon dilatation. EQUIPMENT: GIF XP. SEDATION: Monitored anesthesia as provided by Dr. Fili Eugene. COMPLICATIONS: None identified. INDICATIONS: This is a 32-year-old female with severe complex complicated Crohn disease. 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 She believes the fistulae are improved and less painful with the Entyvio but she has a tough time eating, has chronic abdominal discomfort, and limited stoma output. PROCEDURE INFORMATION: After the risks and benefits were explained, written and verbal informed consent was obtained. The patient was brought into the endoscopy suite and placed into the semirecumbent supine position. Sedation was achieved. The stoma bag was removed. The skin was cleaned up with moist clean towels. I could not get a finger through the stoma. I probed the area with the 5 mm XP endoscope and we were able to eventually find our way into the small bowel. Biopsy was acquired as described below. We left a wire across the stoma and then used an 8-10 mm CRE balloon to stretch this out over 1 minute intervals. The wire was then removed from the patient, who tolerated the procedure quite well. FINDINGS: Severe stomal stenosis. Just inside the fibrotic stoma, the mucosa appeared very abnormal, friable. I was concerned about the prospect of neoplasia and therefore took a couple of biopsies. We laid the wire downstream in what appeared to be reasonably normal appearing small bowel. The position was held and confirmed fluoroscopically. We then backloaded the wire onto the CRE balloon and I positioned the balloon across the stoma after the dilatation that was described above. The patient seemed to tolerate this quite well. Just inside the stoma it was very difficult to determine the anatomy. I suspect at least one of the holes to be related to an enteroenteric fistula. As I said before, it was difficult to determine whether there was an element of almost a J-pouch type of a situation based on the appearance; however, with the friability and irregular appearance of the mucosa, identification of all landmarks was just not possible. ENDOSCOPIC DIAGNOSES: 1. Severe right lower quadrant ileostomy stenosis. 2. Irregular terminal ileum-friable, polypoid in appearance-biopsied. 3. Successful dilatation to 10 mm. RECOMMENDATIONS: 1. Await histopathology. 2. We will attempt to order some surgical steel Bakes dilators ranging in size from 6 to 11 mm. The patient may be able to dilate the stoma on her own at home in order to ensure she continues to drain stool through this avenue rather than out her fistulous openings. 3. Ultimately the need here is for stomal revision and I would like the patient to follow up at the [facility] to discuss the timing of this once again.
--- NOTE | 2017-06-18 15:54 | DRSVH ---
PROCEDURE: X-RAY ENDO GASTRO DILATION, FLUORO INDICATIONS: BALLOON DILATION WITH FLURO ASSISTANCE COMPARISON: [facility], CR, XR ENDO GASTRO DILATION FLUORO, 11/11/2016, 10:25. FINDINGS: Exam limited to a single submitted image. Within these limits, a balloon type catheter is present and there appears to be a small amount of contrast media present which is then injected. No additional imaging performed. IMPRESSION: Presumed endoscopic catheter present with small amount of injected contrast. Correlate with real time exam. Dictated by: Jimmy TRINIDAD Interpreted: Lynnette Villa MD on 06/18/2017 at 10:35 Approved by: Lynnette Villa M.D. on 06/18/2017 at 15:52
--- NOTE | 2017-06-20 12:33 | PCM.HPANE ---
Patient Data Surgeon Admitting Provider: Attending Provider:Kirby Valdez MD Primary Care Physician:Elissa Arteaga DO Other Provider:Kathleen Gordillo Anesthesia Reason for Visit Crohns Disease Ht/WT & BMI Height (Feet): 5 Height (Inches): 5 Weight (Kilograms): 56.70 Body Mass Index 20.00 Allergies Coded Allergies: Iodinated Contrast- Oral and IV Dye (Verified Allergy, Severe, Shortness of Breath,full body rash/redness, 06/17/17) Past Anesthesia History Anesthesia History: Denies:: Abnormal Airway, Anesthesia Reactions, Difficult Intubation, Fam Anesthesia Reaction, Fam Malignant Hypertherm, Malignant Hyperthermia Diabetes History Hx Diabetes?: No MRSA MRSA: No Medications Hypertension Medication: No Home Meds Incl Beta Radha: No Active Scripts Oxycodone (Roxicodone)5 Mg Vyjasv99 Mg PO Q4-6H PRN For Pain #84 TABLET Ref 0 Prov:Vi Salcido MD 03/27/17 Ondansetron ODT (Zofran ODT)4 Mg Tablet4 Mg PO Q4H PRN For Nausea #20 TABLET Prov:Vi Salcido MD 03/27/17 Dicyclomine (Bentyl)10 Mg Xxtcmct76 Mg PO QID #120 CAPSULE Prov:Karissa Vicente DO 10/04/16 Reported Medications Hydromorphone (Dilaudid)4 Mg Tablet4 Mg PO Q4H PRN Pain Ref 0 06/17/17 Fluoxetine 40 Mg Igmlxkj52 Mg PO DAILY Ref 0 05/23/17 Sodium/K+/Mag/Ca/Chlor/Acetate (TPN Electrolytes II IV Soln)20 Ml VialUnknown Dose IV DAILY 03/24/17 Omeprazole Magnesium (Prilosec Otc)20 Mg Tablet.dr20 Mg PO DAILY #1 PKG Ref 0 03/24/17 Lorazepam 1 Mg Tablet1 Mg PO TID PRN For Anxiety Ref 0 12/05/16 Ascorbate Calcium (Vitamin C)500 Mg [id number] Mg PO DAILY 11/06/16 Promethazine 12.5 Mg Tablet6.25 Mg PO Q6H PRN For Nausea 10/21/16 Discontinued Scripts Prednisone (PredniSONE)20 Mg Umowle24 Mg PO DAILY #30 TABLET Ref 0 Prov:Vi Salcido MD 03/27/17 History History of ENT Problems?: No HEENT History: Denies:: Abnormal Airway Difficult Intubation Dysphagia Hearing Problem Sinus Problem Denture Type: None Teeth Condition: Within Normal Limits Hx of Heart Problems?: Yes Cardiovascular History: Positive for:: Edema (Past) Denies:: Cardiac Surgery Chest Pain Congestive Heart Failure Heart Murmur Hypertension Irregular Heartbeat Pacemaker Thrombophlebitis Other Cardiac History: heart failure in December related to Humara and malnutrition Hx of Respiratory Problem?: No Respiratory History: Denies:: Asthma COPD Chest Surgery Dyspnea Emphysema Hemoptysis Pneumonia Tuberculosis Hx Neurologic Problems?: Yes Neurological History: Positive for:: Dizziness Headaches Denies:: Alzheimer's Disease CVA Dementia Parkinson's Disease Seizures Hx of GI Problems?: Yes Hx of Problems?: No Female Hx: Denies:: Currently Endometriosis Pelvic Inflammatory Problems with Breasts? Hx Musculoskeletal Problems?: Yes Musculoskeletal History: Denies:: Back Injury Joint Replacement Musculoskeletal Trauma Hx of Psycho/Social Problems?: Yes Psycho Social History: Positive for:: Anxiety Hx Depression Denies:: Bipolar Disorder Suicide Attempt Hx Surgeries?: Yes (total proctolectomy with end illeostomy ) Hx Any Other Health Problems?: Yes Other History: Positive for:: Hospitalization (Crohns/dehydration) Denies:: Cancer Thyroid Disease History Blood Transfusions: Positive for:: Blood Transfusions Denies:: Blood Transfuse Reaction Hx Diabetes: No Hx Alcohol Use: NoHx Substance Use: No Smoking Status: Never Smoker Have You Smoked inLast 12 mo: No Stop/Bang Treated for Sleep Apnea?: No Do You Have a CPAP Machine?: No S-Snoring: Do You Snore Loudly: No T-Tired: feel tired, fatigued: No O-Obsered: Observed not breath: No P-Blood Pressure: treated: No B- Body Mass Index > 35 kg/m2: No A- Age over 50: No N- Neck Large Circumference: No G- Gender Male: No FELIX Total Score: 0 FELIX Risk Assessment: Low Risk, <3 Yes Risk Assessment Category Category 1A: Patient has history of documented sleep apnea, and HAS NOT received any narcotic, sedative or anesthesia administration during this stay. Category 1B: Patient has history of documented sleep apnea, and HAS received any narcotic , sedative or anesthesia administration during this stay Category 2: Patient has SUSPECTED Obstructive Sleep Apnea, and HAS received any narcotic , sedative or anesthesia administration during this stay. Category 3: Patient has SUSPECTED Obstructive Sleep Apnea and HAS NOT received narcotic, sedative or anesthesia administration during this stay. Category 4: Outpatient in Procedural Areas with known sleep apnea or who screen positive for High Risk via the STOP/BANG questionnaire. Low Risk, <3 Yes Exam Exam General Appearance: Oriented X3 HEENT/AIRWAY: MP 2 Lungs: Normal Air Movement Heart: Regular Rate/Rhythm Plan Impression Patient chart reviewed, patient interviewed and anesthestic plan with risks, benefits, and alternatives discussed, and informed consent obtained. ASA Physical Status: ASA4 Life Threatening Anesthetic Plan: MAC Bene/Risks/Altern/Consents: Yes Fili Eugene MD Jun 20, 2017 12:33
--- NOTE | 2017-06-22 12:45 | PATH ---
SURGICAL PATHOLOGY Attending Physician:Erick Bishop CASE STATUS: Signed Out PATIENT NAME: MAE FELIZ PID: [id number] : 1985 DATE COLLECTED:06/17/2017 00:00 SPECIMEN: Small Intestine/Bowel, Biopsy CLINICAL HISTORY: PERSONAL HISTORY OF CROHN'S 1). SMALL BOWEL BIOPSY FINAL DIAGNOSIS: Small Bowel, Biopsy: Severe active enteritis. Negative for granulomata, dysplasia or malignancy. ICD10: K50.9 GROSS DESCRIPTION: The specimen is received in one formalin filled container labeled with the patient's name, sublabeled "small bowel" and consists of 2 portions of tissue which aggregate to 0.2 x 0.2 x 0.2 CM. The specimen is entirely submitted in one cassette. 06/18/2017DC ICD-9 CODES: CPT CODES: 1: 74751 Electronically Signed Out Vahid Baird MD, Ph.D. [facility] Pathology [facility] [address], [place] [address] Technical component performed at [facility], [address] [place] [address] Ave[address], [address]
== END | disposition home or self-care (01) ==
LOC: END 02:27
PROVIDERS: ATTEND Internal Medicine Gastroenterology
DX: K94.13 Enterostomy malfunction (principal); K50.818 Crohn's disease of both small and large intestine with other complication; R42 Dizziness and giddiness; R51 Headache; F41.9 Anxiety disorder, unspecified; Z79.899 Other long term (current) drug therapy
CPT/HCPCS: 44382; 44799; 74360; 88305; J3010; J7120; Q9967

== ENCOUNTER → 2017-06-17 | Day surgery (SDC) | payer MEDICARE, MEDICAID ==
[~2017-06-17] VITALS: Ht 165.1 cm; Wt 55.4 kg
[~2017-06-17] MED LIST changes: -Dexamethasone 4 mg/mL Inj IVPUSH PRN; -Lactated Ringer's 1,000 ML IV ONE; -Lactated Ringer's 1,000 ML IV SCH; -MetoCLOpramide 5 mg/mL 2 mL Inj IVPUSH PRN; -Ondansetron 2 mg/mL 2 mL Inj IVPUSH PRN; -Sodium Chloride LOK Flush 10 mL Syringe IVFLUSH PRN; -fentaNYL-PF 50 mCg/mL 2 mL Inj IVPUSH ONE; -fentaNYL-PF 50 mCg/mL 2 mL Inj IVPUSH PRN
[2017-06-17 16:55] VITALS: BP 104/71; PULSE 95; RESP 16; O2SAT 96
--- NOTE | 2017-06-17 18:09 | NUR ---
PICC Patient transferred to [facility] from [facility]. Treatment by IVT to infuse Alteplase through PICC line to clear both lumens. Patient tolerated without adverse reaction. Left unit with Mom in stable condition. Will return in July for recurring treatment.
== END | disposition home or self-care (01) ==
LOC: MOCO 16:25
PROVIDERS: ATTEND Internal Medicine Gastroenterology
DX: Z45.2 Encounter for adjustment and management of vascular access device (principal)
CPT/HCPCS: 36593; J2997